=== PATIENT | female | born 1940 | race Caucasian/White ===

== ENCOUNTER 2017-04-21 14:22 | Emergency (ER) | payer MEDICARE, BC ==
[2017-04-21 14:36] VITALS: BP 126/54
[2017-04-21] MEDS ORDERED: Sodium Chloride 0.9% 10 ML Syringe FLUSH PRN (15:36)
--- NOTE | 2017-04-21 15:44 | EDM.PDOC ---
<Debi Maya - Last Filed: 04/21/17 18:45> ED HPI GENERAL MEDICAL PROBLEM - General Chief Complaint: Gastrointestinal Problem Stated Complaint: NAUSEA,CHILLS,DIARRHEA Time Seen by Provider: 04/21/17 15:30 Source of Information: Reports: Patient, Other (daughter ) History Limitations: Reports: No Limitations - History of Present Illness INITIAL COMMENTS - FREE TEXT/NARRATIVE: Bandar is a 76 year-old female who presents today with complaints of diarrhea, nausea, and chills. Her symptoms started this morning at 0300 with reports of loose stools. Since her symptoms started, she has had a total of 5 loose stools. Around 0900, she vomited after drinking gingerale and then became nauseated with chills. She denies any fever, chest pain. The patient reports she has shortness of breath at baseline and dizziness with position changes. Her shortness of breath has not changed since her symptoms began. Her daughter is present in the room and reports that her mother has become progressively more "weak and lethargic" over the past week. She was seen [address] Ramirez and was hypertensive. The patient was started on Amlodipine. She has been checking her blood pressures daily and has noticed a decrease in her pressures since started the medication. She is a type 2 diabetic and sees a air control/anti air warfare officer on her right foot. She was prescribed Augmentin for her foot ulcers 3.5 weeks ago and has 2 pills left to finish her course. The patient's daughter reports her blood sugars have been higher over the past week (176-254). Normally, her blood sugars are 110-115. - Related Data Allergies Allergy/AdvReac Type Severity Reaction Status Date / Time fentanyl Allergy Respiratory Verified 04/21/17 15:12 Depression hydrocodone Allergy Respiratory Verified 04/21/17 15:12 Distress oxycodone [Oxycodone] Allergy Respiratory Verified 04/21/17 15:12 Distress tramadol Allergy Respiratory Verified 04/21/17 15:12 Distress Home Meds: Home Meds Blood-Glucose Meter [Blood Glucose Monitoring] 1 strip ACBED 05/07/14 [History] Insulin Glarg,Human.Rec.Analog [Lantus Solostar] 30 unit SQ BID 05/07/14 [ History] Magnesium 250 mg PO DAILY 05/07/14 [History] Metoprolol Tartrate [Lopressor] 25 mg PO Q12HR 05/07/14 [History] amLODIPine [Norvasc] 10 mg PO DAILY 05/07/14 [History] Sucralfate [Carafate] 1 gm PO Q6HR #120 tab 05/19/14 [Rx] Folic Acid 1 mg PO DAILY 03/08/16 [History] Furosemide [Lasix] 40 mg PO DAILY 03/08/16 [History] Sennosides/Docusate Sodium [Senna S Tablet] 1 tab PO Q2D 03/08/16 [History] predniSONE [Prednisone] 5 mg PO DAILY 03/08/16 [History] Amoxicillin/Clavulanate K [Augmentin 875 MG/125 MG] 1 tab PO Q12HR 04/21/17 [ History] Dextrose [Glucose] 4 gm PO DAILY PRN 04/21/17 [History] Fish Oil/Lindsay-3 Fatty Acids [Fish Oil 1,000 MG] 1 cap PO DAILY 04/21/17 [ History] Insulin Aspart [Novolog] 16 unit SQ TID 04/21/17 [History] Lisinopril 20 mg PO DAILY 04/21/17 [History] Melatonin 3 mg PO BEDTIME PRN 04/21/17 [History] Multivits,Ca,Minerals/Iron/FA [Thera-M] 1 each PO DAILY 04/21/17 [History] Past Medical History HEENT History: Reports: Cataract Cardiovascular History: Reports: High Cholesterol, Hypertension Respiratory History: Reports: Pneumonia, Recurrent, Sleep Apnea Gastrointestinal History: Reports: Chronic Constipation, PUD Other Gastrointestinal History: Stomach ulcer Genitourinary History: Reports: Urinary Incontinence 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: Musculoskeletal History: Reports: Osteoarthritis Other Musculoskeletal History: Rheumatoid arthritis Psychiatric History: Reports: Anxiety, Depression Endocrine/Metabolic History: Reports: Diabetes, Type II, Obesity/BMI 30+ - Past Surgical History Female Surgical History: Reports: Breast Biopsy Musculoskeletal Surgical History: Reports: Knee Replacement Social & Family History - Tobacco Use Smoking Status *Q: Never Smoker Second Hand Smoke Exposure: No - Caffeine Use Caffeine Use: Reports: Coffee, Tea - Alcohol Use Days Per Week of Alcohol Use: 0 Number of Drinks Per Day: 0 Total Drinks Per Week: 0 - Recreational Drug Use Recreational Drug Use: No Drug Use in Last 12 Months: No - Living Situation & Occupation Living situation: Reports: , with Family Occupation: Retired ED ROS GENERAL - Review of Systems Review Of Systems: See Below Constitutional: Reports: Chills, Weakness, Fatigue. Denies: Fever, Night Sweats , Diaphoresis HEENT: Reports: No Symptoms Respiratory: Reports: Shortness of Breath (shortness of breath at baseline per patient ) Cardiovascular: Denies: Chest Pain, Palpitations GI/Abdominal: Reports: Diarrhea (reports 5 loose stools within last 24 hours ), Vomiting (emesis this morning, after drinking gingerale (see HPI) ). Denies: Abdominal Pain, Black Stool, Bloody Stool : Denies: Dysuria, Frequency, Urgency ED EXAM, GI/ABD - Physical Exam Exam: See Below Exam Limited By: No Limitations General Appearance: Alert, No Apparent Distress Eyes: Bilateral: EOMI, Abnormal EOM Ears: Normal TMs Head: Normocephalic Neck: Supple Respiratory/Chest: Lungs Clear, Normal Breath Sounds Cardiovascular: Regular Rate, Rhythm GI/Abdominal: Normal Bowel Sounds, Soft, Non-Tender Extremities: Pedal Edema (+1 bilateral edema to lower legs and ankles ) Neurological: Alert, Oriented, CN II-XII Intact Skin Exam: Wound/Incision (ulcer to posterior toe, patient reports secondary to type 2 DM, no surrounding redness, warmth, or drainage ) Course - Vital Signs Last Recorded V/S: Last Vital Signs Temp 36.8 C 04/21/17 14:34 Pulse 102 H 04/21/17 14:34 Resp 19 04/21/17 14:34 BP 126/54 L 04/21/17 14:34 Pulse Ox - Orders/Labs/Meds Orders: Active Orders 24 hr Category Date Time Status Cardiac Monitoring [RC] . DIRECTED Care 04/21/17 15:41 Active EKG 12 Lead [EKG Documentation Completion] [RC] STAT Care 04/21/17 16:05 Active Peripheral IV Care [RC] . DIRECTED Care 04/21/17 15:36 Active Abdomen Pelvis wo Cont [CT] Stat Exams 04/21/17 17:30 Taken Chest 2V [CR] Stat Exams 04/21/17 15:38 Taken CULTURE BLOOD [BC] Stat Lab 04/21/17 17:30 Received CULTURE BLOOD [BC] Stat Lab 04/21/17 17:45 Received Sodium Chloride 0.9% [Normal Saline] 1,000 ml Med 04/21/17 18:13 Active IV ONETIME Sodium Chloride 0.9% [Saline Flush] Med 04/21/17 15:36 Active 10 ml FLUSH ASDIRECTED PRN Blood Culture x2 Reflex Set [OM.PC] Stat Oth 04/21/17 17:10 Ordered Peripheral IV Insertion Adult [OM.PC] Routine Oth 04/21/17 15:36 Ordered Medication Orders Sodium Chloride (Normal Saline) 1,000 mls @ 100 mls/hr IV ONETIME ONE Stop: 04/22/17 04:12 Last Admin: 04/21/17 18:41 Dose: 100 mls/hr Sodium Chloride (Saline Flush) 10 ml FLUSH ASDIRECTED PRN PRN Reason: Keep Vein Open Last Admin: 04/21/17 16:18 Dose: 10 ml Labs: Laboratory Tests 04/21/17 04/21/17 04/21/17 Range/Units 15:18 16:03 16:05 WBC (3.98-10.04) K/mm3 RBC (3.98-5.22) M/mm3 Hgb (11.2-15.7) gm/L Hct (34.1-44.9) % MCV (79.4-94.8) fl MCH (25.6-32.2) pg MCHC (32.2-35.5) g/dl RDW Std Deviation (36.4-46.3) fL Plt Count (182-369) K/mm3 MPV (9.4-12.3) fl Neutrophils % (Manual) (40-60) % Band Neutrophils % (0-10) % Lymphocytes % (Manual) (20-40) % Atypical Lymphs % % Monocytes % (Manual) (2-10) % Eosinophils % (Manual) (0.7-5.8) % Basophils % (Manual) (0.1-1.2) Platelet Estimate RBC Morph Comment Sodium 137 (136-145) mEq/L Potassium 3.8 (3.5-5.1) mEq/L Chloride 102 (98-107) mEq/L Carbon Dioxide 25 (21-32) mEq/L Anion Gap 13.8 (5-15) BUN 40 H (7-18) mg/dL Creatinine 1.8 H (0.55-1.02) mg/dL Est Cr Clr Drug Dosing 19.40 mL/min Estimated GFR (MDRD) 27 (>60) mL/min BUN/Creatinine Ratio 22.2 H (14-18) Glucose 106 (83-115) mg/dL POC Glucose 64 L 128 H (83-110) mg/dL Lactic Acid (0.4-2.0) mmol/L Calcium 9.0 (8.5-10.1) mg/dL Total Bilirubin 2.6 H (0.2-1.0) mg/dL Direct Bilirubin (0.0-0.2) mg/dl GGT (5-55) U/L AST 120 H (15-37) U/L ALT 178 H (14-59) U/L Alkaline Phosphatase 244 H (46-116) U/L CK-MB (CK-2) (0-3.6) ng/ml Troponin I (0.00-0.056) ng/mL C-Reactive Protein (<1.0) mg/dL B-Natriuretic Peptide (0-100) pg/mL Total Protein 6.9 (6.4-8.2) g/dl Albumin 2.6 L (3.4-5.0) g/dl Globulin 4.3 gm/dL Albumin/Globulin Ratio 0.6 L (1-2) Lipase (73-393) U/L Urine Color (Yellow) Urine Appearance (Clear) Urine pH (5.0-8.0) Ur Specific [place] (1.005-1.030) Urine Protein (Negative) Urine Glucose (UA) (Negative) Urine Ketones (Negative) Urine Occult Blood (Negative) Urine Nitrite (Negative) Urine Bilirubin (Negative) Urine Urobilinogen (0.2-1.0) Ur Leukocyte Esterase (Negative) Urine RBC (0-5) /hpf Urine WBC (0-5) /hpf Ur Epithelial Cells (0-5) /hpf Calcium Oxalate Crystal (NONE) Amorphous Sediment (NOT SEEN) /hpf Urine Bacteria (FEW) /hpf Coarse Granular Casts (0-5) /hpf Urine Mucus (FEW) /hpf 04/21/17 04/21/17 04/21/17 Range/Units 16:05 16:05 16:05 WBC 14.33 H (3.98-10.04) K/mm3 RBC 3.72 L (3.98-5.22) M/mm3 Hgb 11.1 L (11.2-15.7) gm/L Hct 34.5 (34.1-44.9) % MCV 92.7 (79.4-94.8) fl MCH 29.8 (25.6-32.2) pg MCHC 32.2 (32.2-35.5) g/dl RDW Std Deviation 48.0 H (36.4-46.3) fL Plt Count 203 (182-369) K/mm3 MPV 11.4 (9.4-12.3) fl Neutrophils % (Manual) 76 H (40-60) % Band Neutrophils % 3 (0-10) % Lymphocytes % (Manual) 9 L (20-40) % Atypical Lymphs % 0 % Monocytes % (Manual) 11 H (2-10) % Eosinophils % (Manual) 0 L (0.7-5.8) % Basophils % (Manual) 1 (0.1-1.2) Platelet Estimate Adequate RBC Morph Comment Normal Sodium (136-145) mEq/L Potassium (3.5-5.1) mEq/L Chloride (98-107) mEq/L Carbon Dioxide (21-32) mEq/L Anion Gap (5-15) BUN (7-18) mg/dL Creatinine (0.55-1.02) mg/dL Est Cr Clr Drug Dosing mL/min Estimated GFR (MDRD) (>60) mL/min BUN/Creatinine Ratio (14-18) Glucose (83-115) mg/dL POC Glucose (83-110) mg/dL Lactic Acid (0.4-2.0) mmol/L Calcium (8.5-10.1) mg/dL Total Bilirubin (0.2-1.0) mg/dL Direct Bilirubin (0.0-0.2) mg/dl GGT (5-55) U/L AST (15-37) U/L ALT (14-59) U/L Alkaline Phosphatase (46-116) U/L CK-MB (CK-2) < 0.5 (0-3.6) ng/ml Troponin I < 0.017 (0.00-0.056) ng/mL C-Reactive Protein (<1.0) mg/dL B-Natriuretic Peptide 327 H (0-100) pg/mL Total Protein (6.4-8.2) g/dl Albumin (3.4-5.0) g/dl Globulin gm/dL Albumin/Globulin Ratio (1-2) Lipase (73-393) U/L Urine Color (Yellow) Urine Appearance (Clear) Urine pH (5.0-8.0) Ur Specific [place] (1.005-1.030) Urine Protein (Negative) Urine Glucose (UA) (Negative) Urine Ketones (Negative) Urine Occult Blood (Negative) Urine Nitrite (Negative) Urine Bilirubin (Negative) Urine Urobilinogen (0.2-1.0) Ur Leukocyte Esterase (Negative) Urine RBC (0-5) /hpf Urine WBC (0-5) /hpf Ur Epithelial Cells (0-5) /hpf Calcium Oxalate Crystal (NONE) Amorphous Sediment (NOT SEEN) /hpf Urine Bacteria (FEW) /hpf Coarse Granular Casts (0-5) /hpf Urine Mucus (FEW) /hpf 04/21/17 04/21/17 04/21/17 Range/Units 16:05 16:25 17:30 WBC (3.98-10.04) K/mm3 RBC (3.98-5.22) M/mm3 Hgb (11.2-15.7) gm/L Hct (34.1-44.9) % MCV (79.4-94.8) fl MCH (25.6-32.2) pg MCHC (32.2-35.5) g/dl RDW Std Deviation (36.4-46.3) fL Plt Count (182-369) K/mm3 MPV (9.4-12.3) fl Neutrophils % (Manual) (40-60) % Band Neutrophils % (0-10) % Lymphocytes % (Manual) (20-40) % Atypical Lymphs % % Monocytes % (Manual) (2-10) % Eosinophils % (Manual) (0.7-5.8) % Basophils % (Manual) (0.1-1.2) Platelet Estimate RBC Morph Comment Sodium (136-145) mEq/L Potassium (3.5-5.1) mEq/L Chloride (98-107) mEq/L Carbon Dioxide (21-32) mEq/L Anion Gap (5-15) BUN (7-18) mg/dL Creatinine (0.55-1.02) mg/dL Est Cr Clr Drug Dosing mL/min Estimated GFR (MDRD) (>60) mL/min BUN/Creatinine Ratio (14-18) Glucose (83-115) mg/dL POC Glucose (83-110) mg/dL Lactic Acid 0.8 (0.4-2.0) mmol/L Calcium (8.5-10.1) mg/dL Total Bilirubin (0.2-1.0) mg/dL Direct Bilirubin 2.20 H (0.0-0.2) mg/dl GGT 667 H (5-55) U/L AST (15-37) U/L ALT (14-59) U/L Alkaline Phosphatase (46-116) U/L CK-MB (CK-2) (0-3.6) ng/ml Troponin I (0.00-0.056) ng/mL C-Reactive Protein (<1.0) mg/dL B-Natriuretic Peptide (0-100) pg/mL Total Protein (6.4-8.2) g/dl Albumin (3.4-5.0) g/dl Globulin gm/dL Albumin/Globulin Ratio (1-2) Lipase 1038 H (73-393) U/L Urine Color Kathleen H (Yellow) Urine Appearance Cloudy H (Clear) Urine pH 5.5 (5.0-8.0) Ur Specific [place] 1.025 (1.005-1.030) Urine Protein 2+ H (Negative) Urine Glucose (UA) Negative (Negative) Urine Ketones Trace H (Negative) Urine Occult Blood Trace-lysed H (Negative) Urine Nitrite Negative (Negative) Urine Bilirubin 3+ H (Negative) Urine Urobilinogen 4.0 H (0.2-1.0) Ur Leukocyte Esterase Negative (Negative) Urine RBC 0-5 (0-5) /hpf Urine WBC 0-5 (0-5) /hpf Ur Epithelial Cells 5-10 H (0-5) /hpf Calcium Oxalate Crystal Few H (NONE) Amorphous Sediment Few H (NOT SEEN) /hpf Urine Bacteria Few (FEW) /hpf Coarse Granular Casts 10-20 H (0-5) /hpf Urine Mucus Not seen (FEW) /hpf 04/21/ Range/Units 17:50 WBC (3.98-10.04) K/mm3 RBC (3.98-5.22) M/mm3 Hgb (11.2-15.7) gm/L Hct (34.1-44.9) % MCV (79.4-94.8) fl MCH (25.6-32.2) pg MCHC (32.2-35.5) g/dl RDW Std Deviation (36.4-46.3) fL Plt Count (182-369) K/mm3 MPV (9.4-12.3) fl Neutrophils % (Manual) (40-60) % Band Neutrophils % (0-10) % Lymphocytes % (Manual) (20-40) % Atypical Lymphs % % Monocytes % (Manual) (2-10) % Eosinophils % (Manual) (0.7-5.8) % Basophils % (Manual) (0.1-1.2) Platelet Estimate RBC Morph Comment Sodium (136-145) mEq/L Potassium (3.5-5.1) mEq/L Chloride (98-107) mEq/L Carbon Dioxide (21-32) mEq/L Anion Gap (5-15) BUN (7-18) mg/dL Creatinine (0.55-1.02) mg/dL Est Cr Clr Drug Dosing mL/min Estimated GFR (MDRD) (>60) mL/min BUN/Creatinine Ratio (14-18) Glucose (83-115) mg/dL POC Glucose (83-110) mg/dL Lactic Acid (0.4-2.0) mmol/L Calcium (8.5-10.1) mg/dL Total Bilirubin (0.2-1.0) mg/dL Direct Bilirubin (0.0-0.2) mg/dl GGT (5-55) U/L AST (15-37) U/L ALT (14-59) U/L Alkaline Phosphatase (46-116) U/L CK-MB (CK-2) (0-3.6) ng/ml Troponin I (0.00-0.056) ng/mL C-Reactive Protein 6.6 H* (<1.0) mg/dL B-Natriuretic Peptide (0-100) pg/mL Total Protein (6.4-8.2) g/dl Albumin (3.4-5.0) g/dl Globulin gm/dL Albumin/Globulin Ratio (1-2) Lipase (73-393) U/L Urine Color (Yellow) Urine Appearance (Clear) Urine pH (5.0-8.0) Ur Specific [place] (1.005-1.030) Urine Protein (Negative) Urine Glucose (UA) (Negative) Urine Ketones (Negative) Urine Occult Blood (Negative) Urine Nitrite (Negative) Urine Bilirubin (Negative) Urine Urobilinogen (0.2-1.0) Ur Leukocyte Esterase (Negative) Urine RBC (0-5) /hpf Urine WBC (0-5) /hpf Ur Epithelial Cells (0-5) /hpf Calcium Oxalate Crystal (NONE) Amorphous Sediment (NOT SEEN) /hpf Urine Bacteria (FEW) /hpf Coarse Granular Casts (0-5) /hpf Urine Mucus (FEW) /hpf Meds: Medications Generic Name Dose Route Start Last Admin Trade Name Freq PRN Reason Stop Dose Admin Sodium Chloride 1,000 mls @ 100 mls/hr 04/21/17 18:13 04/21/17 18:41 Normal Saline IV 04/22/17 04:12 100 mls/hr ONETIME ONE Administration Sodium Chloride 10 ml 04/21/17 15:36 04/21/17 16:18 Saline Flush FLUSH 10 ml ASDIRECTED PRN Administration Keep Vein Open Discontinued Medications Generic Name Dose Route Start Last Admin Trade Name Freq PRN Reason Stop Dose Admin Ceftriaxone Sodium 1 gm/ 100 mls @ 200 mls/hr 04/21/17 18:23 04/21/17 18:43 Sodium Chloride IV 04/21/17 18:52 200 mls/hr ONETIME ONE Administration Metronidazole 500 mg/ Premix 100 mls @ 100 mls/hr 04/21/17 19:31 04/21/17 19: 45 IV 04/21/17 20:30 100 mls/hr ONETIME ONE Administration Departure - Departure Disposition: DC/Tfer to Acute Hospital 02 Clinical Impression: Acute cholangitis due to calculus of bile duct with obstruction - Discharge Information Referrals: Abraham Ramirez MD [Primary Care Provider] - Forms: ED Department Discharge Additional Instructions: patient to go to [facility] in [place]. Dr. Potts accepting. Will go by ground ambulance. Patient to be a direct admission. - My Orders Last 24 Hours: My Active Orders 04/21/17 16:05 EKG 12 Lead [EKG Documentation Completion] [RC] STAT 04/21/17 17:10 Blood Culture x2 Reflex Set [OM.PC] Stat 04/21/17 17:30 Abdomen Pelvis wo Cont [CT] Stat CULTURE BLOOD [BC] Stat 04/21/17 17:45 CULTURE BLOOD [BC] Stat 04/21/17 18:13 Sodium Chloride 0.9% [Normal Saline] 1,000 ml IV ONETIME - Assessment/Plan Last 24 Hours: My Active Orders 04/21/17 16:05 EKG 12 Lead [EKG Documentation Completion] [RC] STAT 04/21/17 17:10 Blood Culture x2 Reflex Set [OM.PC] Stat 04/21/17 17:30 Abdomen Pelvis wo Cont [CT] Stat CULTURE BLOOD [BC] Stat 04/21/17 17:45 CULTURE BLOOD [BC] Stat 04/21/17 18:13 Sodium Chloride 0.9% [Normal Saline] 1,000 ml IV ONETIME <Kadi Mayers - Last Filed: 04/21/17 20:51> ED HPI GENERAL MEDICAL PROBLEM - History of Present Illness INITIAL COMMENTS - FREE TEXT/NARRATIVE: Debi, nurse practitioner student, has seen and evaluated the patient. I agree with her history of present illness as documented. Patient is currently complaining of nausea, vomiting, diarrhea and chills. She is a type II diabetic. Reports that her blood sugars have been more elevated than normal. Reports that her blood sugars are normally in the 110s to 120s. She denies any chest pain or abdominal pain. Patient has been seeing Dr. Godfrey, air control/anti air warfare officer for her foot ulcers. She has been on Augmentin for the last month for the ulcers. She is no longer on this. ED ROS GENERAL - Review of Systems Constitutional: Reports: Diaphoresis GI/Abdominal: Reports: Nausea Skin: Reports: Wound (diabetic foot ulcers to the lateral great toes) ED EXAM, GI/ABD - Physical Exam General Appearance: WD/WN, Obese Throat/Mouth: Normal Inspection, Normal Voice, No Airway Compromise Neck: Supple Respiratory/Chest: No Respiratory Distress, Lungs Clear, Normal Breath Sounds Cardiovascular: Normal Peripheral Pulses (2+ radial pulses bilaterally, 1+ dorslis pedis and posterior tibialis pulses bilaterally), Regular Rate, Rhythm, Systolic Murmur (grade 1 systolic heart murmur) GI/Abdominal: Normal Bowel Sounds, Soft, Tenderness (mild tenderness in the epigastric region). No: Birmingham's Sign Extremities: Pedal Edema Neurological: Alert, Oriented, CN II-XII Intact, Normal Cognition Psychiatric: Normal Affect, Normal Mood Skin Exam: Warm, Dry, Wound/Incision EKG INTERPRETATION EKG Date: 04/21/17 Time: 16:15 Rhythm: NSR Rate (Beats/Min): 83 [place]: Normal P-Wave: Present QRS: Normal ST-T: Normal QT: Normal EKG Interpretation Comments: NSR at 83 bpm. PAC. Reviewed by myself and Dr. Parker. Course - Radiology Interpretation Free Text/Narrative:: Chest 2 view shows no acute intrathoracic process. CT of the abdomen and pelvis without contrast impression per [facility]: Gallstones in the gallbladder, with the 11 mm obstructing calculus in the distal common bile duct with intrahepatic and extrahepatic biliary dilation. Left renal lesions, recommend ultrasound. Minimal diverticulosis without diverticulitis. Suspicious for cirrhosis. Correlate clinically. CT Results Date: 04/21/17 - Re-Assessments/Exams Free Text/Narrative Re-Assessment/Exam: 04/21/17 19:38 Labs include the following: wbc is 14.33 with 3% bands. Hemoglobin is 11.1. Platelets are 207. Sodium is 137, potassium is 3.8 chloride is 102. Anion gap is 13.8. Creatinine is 1.8. total bilirubin is elevated at 2.6. GGT is 667, AST is 120, ALT is 178 and alkaline phosphatase is 244. Direct bilirubin is 2.20. Lipase is elevated at 1038. ACADEMIC AFFAIRS MANAGER is elevated at 327. Troponin is within normal limits at less than 0.017. CK-MBs within normal limits at less than 0.5. UA has 2+ protein, trace ketones, trace lysed red blood cells, 3+ bilirubin, negative nitrites and negative leukocytes. Next CT of the abdomen and pelvis without IV contrast, due to her elevated creatinine , was ordered to further evaluate elevated liver enzymes and rule out acute cholangitis and CBD obstruction Labs obtained from [facility]. Most recent labs were performed on 02-14-17. At that time her liver enzymes were within normal limits. Creatinine was 1.2. Total bilirubin was 0.3. Hemoglobin was 11.0. White blood cell count 7.4. Platelets 212. I reviewed the CT, EKG, chest x-ray and lab results the patient. She likely requires an ERCP for a 11 mm stone in the distal common bile duct. She also likely has acute cholangitis. She has been given 1 g IV Rocephin. 500mg IV flagyl ordered. She requires a higher level of care. Spoken with the patient about transfer. She like to go to [facility] in [place]. I am awaiting their return phone call this point. vitals at this time at; pulse 78, 99% on RA, Resp 14, temp 98, b/p 153/55 04/21/17 20:[address] Harmon, hospitalist at [facility] in [place]. agrees to accept the patient. We will transfer the patient by ground ambulance at this time. Departure - Departure Time of Disposition: 20:50 Condition: Serious
[2017-04-21] MEDS ORDERED: Sodium Chloride 0.9% 1,000 ML IV ONE (18:13)
[2017-04-21] MEDS ORDERED: cefTRIAXone 1 GM in Sodium Chloride 0.9% 100 ML IV ONE (18:23)
[2017-04-21] MEDS ORDERED: metroNIDAZOLE/Normal Saline 500 MG in Premix Bag 1 BAG IV ONE (19:31)
--- NOTE | 2017-04-23 11:17 | CR ---
Chest: 2 views of the chest were obtained. Comparison: Previous chest CT of 05/06/14 is available and chest x-ray of 08/07/09 is available. Heart size and mediastinum appear within normal limits for technique. Lungs are clear with no acute infiltrates. Slight scoliosis is noted within the spine with mild degenerative change also seen within the spine. Impression: 1. Nothing acute is appreciated on 2 view chest x-ray. Diagnostic code #2
--- NOTE | 2017-04-23 11:38 | CT ---
Addendum: Distal CBD stone shows a measurement of 1.1 mm on prior report. This is incorrect and is 1.1 cm. --- Addendum1 above dictated on [04/28/2017 17:53] by [Mallika Moss Hilton J.] --- --- Addendum1 above signed on [04/28/2017 17:54] by [Mallika Moss Hilton J.] --- --- Original report below dictated on [04/22/2017 10:23] by [Mallika Moss, Melo Armenta] --- --- Original report below signed on [04/23/2017 11:35] by [Mallika Moss Hilton J.] --- CT abdomen and pelvis Technique: Multiple axial sections were obtained from above the dome of the diaphragm inferiorly through the pubic symphysis. Intravenous and oral contrast not utilized. This limits evaluation of the bowel and solid organs. Comparison: No previous abdominal imaging. Findings: Slight areas of scarring/atelectasis incidentally noted within both lung bases. Equivocal findings of cirrhosis within the liver. No definite focal abnormality is appreciated on this noncontrast exam. There is mild intrahepatic biliary duct dilatation being seen. Gallstones are seen within the gallbladder. Distal common bile duct measures 1.1 cm in size. There is an area of increased density within the distal CBD felt compatible with obstructing stone measuring about 1.1 mm. Adrenal glands show no nodule. Pancreas shows no focal abnormality. Kidneys show no hydronephrosis. Several small cortical cysts are seen within the left kidney believed to be incidental. Small area of increased density seen within the lower left kidney measuring 1.0 cm in size most likely representing small hemorrhagic cyst. Aorta and iliac vessels shows atherosclerotic change without aneurysm. No retroperitoneal adenopathy or mesenteric abnormalities are seen. Calcifications are noted within the uterus. No pelvic mass or adenopathy is seen. Bone window settings were reviewed which show spondylolisthesis at L5-S1 due to bilateral spondylolytic defects. Spondylolisthesis measures about 8.6 mm. Severe disc space narrowing is also noted at L5-S1. Impression: 1. Distal obstructing CBD stone measuring 1.1 cm. This causes extrahepatic and intrahepatic biliary duct dilatation. Multiple gallstones also noted within the gallbladder. 2. Questionable liver cirrhosis. 3. Other incidental findings. Diagnostic code #5 I agree with preliminary report issued by [facility] ([facility] report finalized on 04/21/17, 8:24 PM Central Time) --- Addendum1 signed ---
== END 2017-04-21 21:14 ==
LOC: JD.ED 14:22
DX: K80.33 Calculus of bile duct with acute cholangitis with obstruction (principal); R11.0 Nausea; R19.7 Diarrhea, unspecified; I10 Essential (primary) hypertension; E78.00 Pure hypercholesterolemia, unspecified; G47.30 Sleep apnea, unspecified; M19.90 Unspecified osteoarthritis, unspecified site; M06.9 Rheumatoid arthritis, unspecified; E11.9 Type 2 diabetes mellitus without complications; E66.9 Obesity, unspecified; R06.02 Shortness of breath; Z96.659 Presence of unspecified artificial knee joint; Z79.4 Long term (current) use of insulin; Z79.899 Other long term (current) drug therapy; Z88.5 Allergy status to narcotic agent; Z88.6 Allergy status to analgesic agent; Z88.8 Allergy status to other drugs, medicaments and biological substances
CPT/HCPCS: 36415; 71020; 74176; 80053; 81001; 82248; 82553; 82962; 82977; 83605; 83690; 83880; 84484; 85025; 86140; 87040; 87077; 87186; 93005; 96361; 96365; 96367; 99285; J0696; J7030; J7040; J7050; P9612; 99284

== ENCOUNTER 2017-12-05 17:25 | Emergency (ER) | payer MEDICARE, BC ==
[2017-12-05 17:47] VITALS: BP 136/69
[2017-12-05] MEDS ORDERED: Sodium Chloride 0.9% 1,000 ML IV ONE (17:53)
[2017-12-05] MEDS ORDERED: Sodium Chloride 0.9% 1,000 ML ONE (17:53)
[2017-12-05] MEDS ORDERED: Acetaminophen 325 MG Tab PO ONE (17:55)
[2017-12-05] MEDS ORDERED: Sodium Chloride 0.9% 10 ML Syringe FLUSH PRN ×2 (17:55→20:36)
--- NOTE | 2017-12-05 18:01 | EDM.PDOC ---
ED HPI GENERAL MEDICAL PROBLEM - General Chief Complaint: Fever Stated Complaint: [facility] Time Seen by Provider: 12/05/17 17:50 Source of Information: Reports: Patient History Limitations: Reports: No Limitations - History of Present Illness INITIAL COMMENTS - FREE TEXT/NARRATIVE: Patient is a 77-year-old female who presents to the ED with sudden onset of fever, shortness of breath, and nausea/vomiting. Family states patient at approximately 2:30 this afternoon experienced a low blood sugar and again at 3: 00. At about that time patient started feeling feverish with rigors. Patient became nauseated and had 3 episodes of emesis with no blood present. She did have 1x loose stool as well but was not described as diarrhea. Per family patient has history of aspiration pneumonia. She is on O2 chronically 2 L/m. She lives a sedentary lifestyle. She does have swelling to her lower extremities of no increase as a recent or pain present. She denies recent exposure to influenza. Denies any ingestion of bad questional food. Has no complaints with urination. She denies having any chest pain or abdominal pain with admission. Patient has a diabetic ulcer to left great toe. She was evaluated today by Dr. Godfrey [place] [employer] Helper with no concerning findings. Patient has a history of diastolic heart failure, hyperglycemia, hypertension, aspiration pneumonia, anxiety, depression, rheumatoid arthritis, diabetes type 2 , diabetic ulcer. Current medications include: Metoprolol, Norvasc, prednisone, lisinopril, magnesium, Lantus,and NovoLog. Treatments HEALTH INFORMATION SYSTEMS TECHNICIAN: Reports: Oxygen, Other (see below) Other Treatments HEALTH INFORMATION SYSTEMS TECHNICIAN: zofran odt - Related Data Allergies Allergy/AdvReac Type Severity Reaction Status Date / Time fentanyl Allergy Respiratory Verified 12/05/17 17:47 Depression hydrocodone Allergy Respiratory Verified 12/05/17 17:47 Distress oxycodone [Oxycodone] Allergy Respiratory Verified 12/05/17 17:47 Distress tramadol Allergy Respiratory Verified 12/05/17 17:47 Distress Home Meds: Home Meds Blood-Glucose Meter [Blood Glucose Monitoring] 1 strip ACBED 05/07/14 [History] Insulin Glarg,Human.Rec.Analog [Lantus Solostar] 30 unit SQ BID 05/07/14 [ History] Magnesium 250 mg PO DAILY 05/07/14 [History] Metoprolol Tartrate [Lopressor] 25 mg PO Q12HR 05/07/14 [History] amLODIPine [Norvasc] 10 mg PO DAILY 05/07/14 [History] Sucralfate [Carafate] 1 gm PO Q6HR #120 tab 05/19/14 [Rx] Folic Acid 1 mg PO DAILY 03/08/16 [History] Furosemide [Lasix] 40 mg PO DAILY 03/08/16 [History] Sennosides/Docusate Sodium [Senna S Tablet] 1 tab PO Q2D 03/08/16 [History] predniSONE [Prednisone] 5 mg PO DAILY 03/08/16 [History] Amoxicillin/Clavulanate K [Augmentin 875 MG/125 MG] 1 tab PO Q12HR 04/21/17 [ History] Dextrose [Glucose] 4 gm PO DAILY PRN 04/21/17 [History] Fish Oil/[place]-3 Fatty Acids [Fish Oil 1,000 MG] 1 cap PO DAILY 04/21/17 [ History] Insulin Aspart [Novolog] 16 unit SQ TID 04/21/17 [History] Lisinopril 20 mg PO DAILY 04/21/17 [History] Melatonin 3 mg PO BEDTIME PRN 04/21/17 [History] Multivits,Ca,Minerals/Iron/FA [Thera-M] 1 each PO DAILY 04/21/17 [History] Past Medical History HEENT History: Reports: Cataract, Impaired Vision Cardiovascular History: Reports: High Cholesterol, Hypertension, Other (See Below) (diastolic heart failure) Respiratory History: Reports: Pneumonia, Recurrent, Sleep Apnea, SOB, Other ( See Below) Other Respiratory History: oxygen dependent Gastrointestinal History: Reports: Chronic Constipation, PUD Other Gastrointestinal History: Stomach ulcer Genitourinary History: Reports: Urinary Incontinence 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: 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: Musculoskeletal History: Reports: Osteoarthritis Other Musculoskeletal History: Rheumatoid arthritis Psychiatric History: Reports: Anxiety, Depression Endocrine/Metabolic History: Reports: Diabetes, Type II, Obesity/BMI 30+ Dermatologic History: Reports: Other (See Below) Other Dermatologic History: diabetic ulceration - Past Surgical History Female Surgical History: Reports: Breast Biopsy Musculoskeletal Surgical History: Reports: Knee Replacement Social & Family History - Family History Family Medical History: Noncontributory - Tobacco Use Smoking Status *Q: Never Smoker Second Hand Smoke Exposure: No - Caffeine Use Caffeine Use: Reports: Coffee - Alcohol Use Days Per Week of Alcohol Use: 0 Number of Drinks Per Day: 0 Total Drinks Per Week: 0 - Recreational Drug Use Recreational Drug Use: No Drug Use in Last 12 Months: No - Living Situation & Occupation Living situation: Reports: , with Family Occupation: Retired ED ROS GENERAL - Review of Systems Review Of Systems: ROS reveals no pertinent complaints other than HPI. ED EXAM, GI/ABD - Physical Exam Exam: See Below Exam Limited By: Respiratory Distress General Appearance: Alert, WD/WN, Moderate Distress Eyes: Bilateral: Normal Appearance Ears: Normal External Exam, Normal Canal, Hearing Grossly Normal, Normal TMs Nose: Normal Inspection Throat/Mouth: Normal Inspection, Normal Oropharynx, Normal Voice, No Airway Compromise Head: Atraumatic, Normocephalic Neck: Normal Inspection, Supple, Non-Tender, Full Range of Motion Respiratory/Chest: Lungs Clear, Normal Breath Sounds, No Accessory Muscle Use, Respiratory Distress Cardiovascular: Regular Rate, Rhythm, Tachycardia, Systolic Murmur GI/Abdominal Exam: Normal Bowel Sounds, Soft, Non-Tender Extremities: Non-Tender, Pedal Edema, Other (Diabetic ulcer to the left great toe. It is not infected.) Neurological: Alert, Oriented, CN II-XII Intact, Normal Cognition, No Motor/ Sensory Deficits Psychiatric: Normal Affect, Normal Mood Skin Exam: Dry, Intact, Normal Color, Increased Warmth Course - Vital Signs Last Recorded V/S: Last Vital Signs Temp 101.9 F H 12/05/17 20:13 Pulse 124 H 12/05/17 17:30 Resp 44 H 12/05/17 17:30 BP 136/69 12/05/17 17:30 Pulse Ox 94 L 12/05/17 17:30 - Orders/Labs/Meds Orders: Active Orders 24 hr Category Date Time Status EKG Documentation Completion [RC] STAT Care 12/05/17 18:03 Active EKG Documentation Completion [RC] STAT Care 12/05/17 22:34 Active Peripheral IV Care [RC] . DIRECTED Care 12/05/17 17:55 Active Abdomen 1V Flat [CR] Stat Exams 12/05/17 18:30 Taken Chest 1V Frontal [CR] Stat Exams 12/05/17 18:30 Taken PE Chest [Ang Chest] [CT] Stat Exams 12/05/17 20:09 Taken CULTURE BLOOD [BC] Stat Lab 12/05/17 18:25 Received CULTURE BLOOD [BC] Stat Lab 12/05/17 19:15 Received Sodium Chloride 0.9% [Normal Saline] 100 ml Med 12/05/17 20:45 Active IV ASDIRECTED Sodium Chloride 0.9% [Saline Flush] Med 12/05/17 17:55 Active 10 ml FLUSH ASDIRECTED PRN Sodium Chloride 0.9% [Saline Flush] Med 12/05/17 20:36 Active 10 ml FLUSH ONETIME PRN Blood Culture x2 Reflex Set [OM.PC] Stat Oth 12/05/17 17:52 Ordered Peripheral IV Insertion Adult [OM.PC] Stat Oth 12/05/17 17:55 Ordered Medication Orders Sodium Chloride (Normal Saline) 100 mls @ 75 mls/hr IV ASDIRECTED CJ Last Admin: 12/05/17 21:00 Dose: 75 mls/hr Sodium Chloride (Saline Flush) 10 ml FLUSH ASDIRECTED PRN PRN Reason: Keep Vein Open Last Admin: 12/05/17 18:10 Dose: 10 ml Sodium Chloride (Saline Flush) 10 ml FLUSH ONETIME PRN PRN Reason: IV FLUSH Last Admin: 12/05/17 21:00 Dose: 10 ml Labs: Laboratory Tests 12/05/17 12/05/17 12/05/17 Range/Units 17:05 18:25 18:25 WBC Cancelled Corrected WBC Cancelled RBC Cancelled Hgb Cancelled Hct Cancelled MCV Cancelled MCH Cancelled MCHC Cancelled RDW Std Deviation Cancelled Plt Count Cancelled MPV Cancelled Neut % (Auto) Cancelled Lymph % (Auto) Cancelled [place] % (Auto) Cancelled Eos % (Auto) Cancelled Baso % (Auto) Cancelled Neut # (Auto) Cancelled Lymph # (Auto) Cancelled [place] # (Auto) Cancelled Eos # (Auto) Cancelled Baso # (Auto) Cancelled Neutrophils % (Manual) (40-60) % Band Neutrophils % (0-10) % Lymphocytes % (Manual) (20-40) % Atypical Lymphs % % Monocytes % (Manual) (2-10) % Eosinophils % (Manual) (0.7-5.8) % Basophils % (Manual) (0.1-1.2) Manual Slide Review Cancelled Toxic Granulation Platelet Estimate Plt Morphology Comment Anisocytosis RBC Morph Comment PT 10.7 (8.0-13.0) SECONDS INR 1.00 APTT 25 (22-36) SECONDS D-Dimer, Quantitative (0.19-0.59) mg/L Puncture Site ABG pH (7.35-7.45) ABG pCO2 (35.0-45.0) mmHg ABG pO2 (80.0-100.0) mmHg ABG HCO3 (22.0-26.0) meq/L ABG O2 Saturation (96.0-97.0) % ABG Base Excess (-2-2.0) Oscar Test O2 Delivery Device Oxygen Flow Rate FiO2 (21.00-100.00) % Sodium (136-145) mEq/L Potassium (3.5-5.1) mEq/L Chloride (98-107) mEq/L Carbon Dioxide (21-32) mEq/L Anion Gap (5-15) BUN (7-18) mg/dL Creatinine (0.55-1.02) mg/dL Est Cr Clr Drug Dosing mL/min Estimated GFR (MDRD) (>60) mL/min BUN/Creatinine Ratio (14-18) Glucose (83-115) mg/dL POC Glucose (83-110) mg/dL Lactic Acid (0.4-2.0) mmol/L Calcium (8.5-10.1) mg/dL Total Bilirubin (0.2-1.0) mg/dL AST (15-37) U/L ALT (14-59) U/L Alkaline Phosphatase (46-116) U/L Troponin I (0.00-0.056) ng/mL C-Reactive Protein (<1.0) mg/dL NT-Pro-B Natriuret Pep (0-450) pg/mL Total Protein (6.4-8.2) g/dl Albumin (3.4-5.0) g/dl Globulin gm/dL Albumin/Globulin Ratio (1-2) Lipase (73-393) U/L Urine Color Yellow (Yellow) Urine Appearance Clear (Clear) Urine pH 5.5 (5.0-8.0) Ur Specific [place] 1.025 (1.005-1.030) Urine Protein 2+ H (Negative) Urine Glucose (UA) Negative (Negative) Urine Ketones Negative (Negative) Urine Occult Blood Trace-intact H (Negative) Urine Nitrite Negative (Negative) Urine Bilirubin Negative (Negative) Urine Urobilinogen 0.2 (0.2-1.0) Ur Leukocyte Esterase Negative (Negative) Urine RBC 0-5 (0-5) /hpf Urine WBC 0-5 (0-5) /hpf Ur Epithelial Cells 0-5 (0-5) /hpf Urine Bacteria Not seen (FEW) /hpf Urine Mucus Not seen (FEW) /hpf 12/05/17 12/05/17 12/05/17 Range/Units 18:25 18:25 18:25 WBC 13.61 H Corrected WBC RBC 3.32 L Hgb 9.9 L Hct 30.6 L MCV 92.2 MCH 29.8 MCHC 32.4 RDW Std Deviation 47.1 H Plt Count 203 MPV 10.0 Neut % (Auto) Lymph % (Auto) [place] % (Auto) Eos % (Auto) Baso % (Auto) Neut # (Auto) Lymph # (Auto) [place] # (Auto) Eos # (Auto) Baso # (Auto) Neutrophils % (Manual) 85 H (40-60) % Band Neutrophils % 4 (0-10) % Lymphocytes % (Manual) 8 L (20-40) % Atypical Lymphs % 0 % Monocytes % (Manual) 3 (2-10) % Eosinophils % (Manual) 0 L (0.7-5.8) % Basophils % (Manual) 0 L (0.1-1.2) Manual Slide Review Toxic Granulation 2+ moderate Platelet Estimate Adequate Plt Morphology Comment Normal Anisocytosis 1+ slight RBC Morph Comment Not Reportable PT (8.0-13.0) SECONDS INR APTT (22-36) SECONDS D-Dimer, Quantitative (0.19-0.59) mg/L Puncture Site ABG pH (7.35-7.45) ABG pCO2 (35.0-45.0) mmHg ABG pO2 (80.0-100.0) mmHg ABG HCO3 (22.0-26.0) meq/L ABG O2 Saturation (96.0-97.0) % ABG Base Excess (-2-2.0) Oscra Test O2 Delivery Device Oxygen Flow Rate FiO2 (21.00-100.00) % Sodium 140 (136-145) mEq/L Potassium 4.5 (3.5-5.1) mEq/L Chloride 104 (98-107) mEq/L Carbon Dioxide 25 (21-32) mEq/L Anion Gap 15.5 H (5-15) BUN 36 H (7-18) mg/dL Creatinine 1.3 H (0.55-1.02) mg/dL Est Cr Clr Drug Dosing 26.44 mL/min Estimated GFR (MDRD) 40 (>60) mL/min BUN/Creatinine Ratio 27.7 H (14-18) Glucose 112 (83-115) mg/dL POC Glucose (83-110) mg/dL Lactic Acid (0.4-2.0) mmol/L Calcium 9.1 (8.5-10.1) mg/dL Total Bilirubin 0.3 (0.2-1.0) mg/dL AST 26 (15-37) U/L ALT 27 (14-59) U/L Alkaline Phosphatase 95 (46-116) U/L Troponin I 0.043 (0.00-0.056) ng/mL C-Reactive Protein 1.1 H* (<1.0) mg/dL NT-Pro-B Natriuret Pep 493 H (0-450) pg/mL Total Protein 7.5 (6.4-8.2) g/dl Albumin 3.1 L (3.4-5.0) g/dl Globulin 4.4 gm/dL Albumin/Globulin Ratio 0.7 L (1-2) Lipase 166 (73-393) U/L Urine Color (Yellow) Urine Appearance (Clear) Urine pH (5.0-8.0) Ur Specific [place] (1.005-1.030) Urine Protein (Negative) Urine Glucose (UA) (Negative) Urine Ketones (Negative) Urine Occult Blood (Negative) Urine Nitrite (Negative) Urine Bilirubin (Negative) Urine Urobilinogen (0.2-1.0) Ur Leukocyte Esterase (Negative) Urine RBC (0-5) /hpf Urine WBC (0-5) /hpf Ur Epithelial Cells (0-5) /hpf Urine Bacteria (FEW) /hpf Urine Mucus (FEW) /hpf 12/05/17 12/05/17 12/05/17 Range/Units 18:25 19:15 19:25 WBC Corrected WBC RBC Hgb Hct MCV MCH MCHC RDW Std Deviation Plt Count MPV Neut % (Auto) Lymph % (Auto) [place] % (Auto) Eos % (Auto) Baso % (Auto) Neut # (Auto) Lymph # (Auto) [place] # (Auto) Eos # (Auto) Baso # (Auto) Neutrophils % (Manual) (40-60) % Band Neutrophils % (0-10) % Lymphocytes % (Manual) (20-40) % Atypical Lymphs % % Monocytes % (Manual) (2-10) % Eosinophils % (Manual) (0.7-5.8) % Basophils % (Manual) (0.1-1.2) Manual Slide Review Toxic Granulation Platelet Estimate Plt Morphology Comment Anisocytosis RBC Morph Comment PT (8.0-13.0) SECONDS INR APTT (22-36) SECONDS D-Dimer, Quantitative 2.35 H (0.19-0.59) mg/L Puncture Site Rt radial ABG pH 7.43 (7.35-7.45) ABG pCO2 37.7 (35.0-45.0) mmHg ABG pO2 68.0 L (80.0-100.0) mmHg ABG HCO3 24.3 (22.0-26.0) meq/L ABG O2 Saturation 95.4 L (96.0-97.0) % ABG Base Excess 0.5 (-2-2.0) Oscar Test Positive O2 Delivery Device Nasal cannula Oxygen Flow Rate 2.0 FiO2 0.28 L (21.00-100.00) % Sodium (136-145) mEq/L Potassium (3.5-5.1) mEq/L Chloride (98-107) mEq/L Carbon Dioxide (21-32) mEq/L Anion Gap (5-15) BUN (7-18) mg/dL Creatinine (0.55-1.02) mg/dL Est Cr Clr Drug Dosing mL/min Estimated GFR (MDRD) (>60) mL/min BUN/Creatinine Ratio (14-18) Glucose (83-115) mg/dL POC Glucose (83-110) mg/dL Lactic Acid 1.7 (0.4-2.0) mmol/L Calcium (8.5-10.1) mg/dL Total Bilirubin (0.2-1.0) mg/dL AST (15-37) U/L ALT (14-59) U/L Alkaline Phosphatase (46-116) U/L Troponin I (0.00-0.056) ng/mL C-Reactive Protein (<1.0) mg/dL NT-Pro-B Natriuret Pep (0-450) pg/mL Total Protein (6.4-8.2) g/dl Albumin (3.4-5.0) g/dl Globulin gm/dL Albumin/Globulin Ratio (1-2) Lipase (73-393) U/L Urine Color (Yellow) Urine Appearance (Clear) Urine pH (5.0-8.0) Ur Specific [place] (1.005-1.030) Urine Protein (Negative) Urine Glucose (UA) (Negative) Urine Ketones (Negative) Urine Occult Blood (Negative) Urine Nitrite (Negative) Urine Bilirubin (Negative) Urine Urobilinogen (0.2-1.0) Ur Leukocyte Esterase (Negative) Urine RBC (0-5) /hpf Urine WBC (0-5) /hpf Ur Epithelial Cells (0-5) /hpf Urine Bacteria (FEW) /hpf Urine Mucus (FEW) /hpf 12/05/17 12/05/17 12/05/17 Range/Units 21:11 21:30 22:13 WBC Corrected WBC RBC Hgb Hct MCV MCH MCHC RDW Std Deviation Plt Count MPV Neut % (Auto) Lymph % (Auto) [place] % (Auto) Eos % (Auto) Baso % (Auto) Neut # (Auto) Lymph # (Auto) [place] # (Auto) Eos # (Auto) Baso # (Auto) Neutrophils % (Manual) (40-60) % Band Neutrophils % (0-10) % Lymphocytes % (Manual) (20-40) % Atypical Lymphs % % Monocytes % (Manual) (2-10) % Eosinophils % (Manual) (0.7-5.8) % Basophils % (Manual) (0.1-1.2) Manual Slide Review Toxic Granulation Platelet Estimate Plt Morphology Comment Anisocytosis RBC Morph Comment PT (8.0-13.0) SECONDS INR APTT (22-36) SECONDS D-Dimer, Quantitative (0.19-0.59) mg/L Puncture Site ABG pH (7.35-7.45) ABG pCO2 (35.0-45.0) mmHg ABG pO2 (80.0-100.0) mmHg ABG HCO3 (22.0-26.0) meq/L ABG O2 Saturation (96.0-97.0) % ABG Base Excess (-2-2.0) Oscar Test O2 Delivery Device Oxygen Flow Rate FiO2 (21.00-100.00) % Sodium (136-145) mEq/L Potassium (3.5-5.1) mEq/L Chloride (98-107) mEq/L Carbon Dioxide (21-32) mEq/L Anion Gap (5-15) BUN (7-18) mg/dL Creatinine (0.55-1.02) mg/dL Est Cr Clr Drug Dosing mL/min Estimated GFR (MDRD) (>60) mL/min BUN/Creatinine Ratio (14-18) Glucose (83-115) mg/dL POC Glucose 70 L 73 L (83-110) mg/dL Lactic Acid (0.4-2.0) mmol/L Calcium (8.5-10.1) mg/dL Total Bilirubin (0.2-1.0) mg/dL AST (15-37) U/L ALT (14-59) U/L Alkaline Phosphatase (46-116) U/L Troponin I 0.251 H* (0.00-0.056) ng/mL C-Reactive Protein (<1.0) mg/dL NT-Pro-B Natriuret Pep (0-450) pg/mL Total Protein (6.4-8.2) g/dl Albumin (3.4-5.0) g/dl Globulin gm/dL Albumin/Globulin Ratio (1-2) Lipase (73-393) U/L Urine Color (Yellow) Urine Appearance (Clear) Urine pH (5.0-8.0) Ur Specific [place] (1.005-1.030) Urine Protein (Negative) Urine Glucose (UA) (Negative) Urine Ketones (Negative) Urine Occult Blood (Negative) Urine Nitrite (Negative) Urine Bilirubin (Negative) Urine Urobilinogen (0.2-1.0) Ur Leukocyte Esterase (Negative) Urine RBC (0-5) /hpf Urine WBC (0-5) /hpf Ur Epithelial Cells (0-5) /hpf Urine Bacteria (FEW) /hpf Urine Mucus (FEW) /hpf 12/05/17 Range/Units 23:26 WBC Corrected WBC RBC Hgb Hct MCV MCH MCHC RDW Std Deviation Plt Count MPV Neut % (Auto) Lymph % (Auto) [place] % (Auto) Eos % (Auto) Baso % (Auto) Neut # (Auto) Lymph # (Auto) [place] # (Auto) Eos # (Auto) Baso # (Auto) Neutrophils % (Manual) (40-60) % Band Neutrophils % (0-10) % Lymphocytes % (Manual) (20-40) % Atypical Lymphs % % Monocytes % (Manual) (2-10) % Eosinophils % (Manual) (0.7-5.8) % Basophils % (Manual) (0.1-1.2) Manual Slide Review Toxic Granulation Platelet Estimate Plt Morphology Comment Anisocytosis RBC Morph Comment PT (8.0-13.0) SECONDS INR APTT (22-36) SECONDS D-Dimer, Quantitative (0.19-0.59) mg/L Puncture Site ABG pH (7.35-7.45) ABG pCO2 (35.0-45.0) mmHg ABG pO2 (80.0-100.0) mmHg ABG HCO3 (22.0-26.0) meq/L ABG O2 Saturation (96.0-97.0) % ABG Base Excess (-2-2.0) Oscar Test O2 Delivery Device Oxygen Flow Rate FiO2 (21.00-100.00) % Sodium (136-145) mEq/L Potassium (3.5-5.1) mEq/L Chloride (98-107) mEq/L Carbon Dioxide (21-32) mEq/L Anion Gap (5-15) BUN (7-18) mg/dL Creatinine (0.55-1.02) mg/dL Est Cr Clr Drug Dosing mL/min Estimated GFR (MDRD) (>60) mL/min BUN/Creatinine Ratio (14-18) Glucose (83-115) mg/dL POC Glucose 120 H (83-110) mg/dL Lactic Acid (0.4-2.0) mmol/L Calcium (8.5-10.1) mg/dL Total Bilirubin (0.2-1.0) mg/dL AST (15-37) U/L ALT (14-59) U/L Alkaline Phosphatase (46-116) U/L Troponin I (0.00-0.056) ng/mL C-Reactive Protein (<1.0) mg/dL NT-Pro-B Natriuret Pep (0-450) pg/mL Total Protein (6.4-8.2) g/dl Albumin (3.4-5.0) g/dl Globulin gm/dL Albumin/Globulin Ratio (1-2) Lipase (73-393) U/L Urine Color (Yellow) Urine Appearance (Clear) Urine pH (5.0-8.0) Ur Specific [place] (1.005-1.030) Urine Protein (Negative) Urine Glucose (UA) (Negative) Urine Ketones (Negative) Urine Occult Blood (Negative) Urine Nitrite (Negative) Urine Bilirubin (Negative) Urine Urobilinogen (0.2-1.0) Ur Leukocyte Esterase (Negative) Urine RBC (0-5) /hpf Urine WBC (0-5) /hpf Ur Epithelial Cells (0-5) /hpf Urine Bacteria (FEW) /hpf Urine Mucus (FEW) /hpf Meds: Medications Generic Name Dose Route Start Last Admin Trade Name Robbyq PRN Reason Stop Dose Admin Sodium Chloride 100 mls @ 75 mls/hr 12/05/17 20:45 12/05/17 21:00 Normal Saline IV 75 mls/hr ASDIRECTED CJ Administration Sodium Chloride 10 ml 12/05/17 17:55 12/05/17 18:10 Saline Flush FLUSH 10 ml ASDIRECTED PRN Administration Keep Vein Open Sodium Chloride 10 ml 12/05/17 20:36 12/05/17 21:00 Saline Flush FLUSH 10 ml ONETIME PRN Administration IV FLUSH Discontinued Medications Generic Name Dose Route Start Last Admin Trade Name Sherri PRN Reason Stop Dose Admin Acetaminophen 975 mg 12/05/17 17:55 12/05/17 18:19 Tylenol PO 12/05/17 17:56 975 mg NOW ONE Administration Aspirin 324 mg 12/05/17 22:30 12/05/17 22:36 Aspirin PO 12/05/17 22:31 324 mg ONETIME ONE Administration Sodium Chloride Confirm 12/05/17 17:53 12/05/17 18:22 Normal Saline Administered 12/05/17 17:54 Not Given Dose 1,000 mls @ as directed .ROUTE .STK-MED ONE Sodium Chloride 1,000 mls @ 250 mls/hr 12/05/17 17:53 12/05/17 18:18 Normal Saline IV 12/05/17 21:52 250 mls/hr ASDIRECTED ONE Administration Ceftriaxone Sodium 2 gm/ 100 mls @ 100 mls/hr 12/05/17 19:07 12/05/17 19:32 Sodium Chloride IV 12/05/17 20:06 100 mls/hr ONETIME ONE Administration Clindamycin Phosphate 600 mg/ 104 mls @ 100 mls/hr 12/05/17 19:07 12/05/17 21 :04 Sodium Chloride IV 12/05/17 20:09 100 mls/hr ONETIME ONE Administration Iopamidol 100 ml 12/05/17 20:36 12/05/17 21:00 Isovue-370 (76%) IVPUSH 12/05/17 20:37 100 ml ONETIME ONE Administration Iopamidol 50 ml 12/05/17 20:36 12/05/17 21:00 Isovue-370 (76%) IVPUSH 12/05/17 20:37 50 ml ONETIME ONE Administration - Radiology Interpretation Free Text/Narrative:: IV established with normal saline 250 mL per hour to total 500 ml bolus. Patient's temperature is 103F and rising.Ordered Tylenol 975 mg by mouth. Patient meets sepsis criteria. Patient has a history of diastolic CHF thus will have to be very strict with IV fluids. Initial labs and studies will include CBC, chem 14, blood cultures 2, CRP, coags studies, lactic acid, lipase, proBNP, coag studies, troponin, UA, chest x- ray two-view, influenza screen, and x-ray of the abdomen. Labs reviewed: White blood cell count 13.61, hemoglobin 9.9, platelets 23, neutrophil percentage is 93.9, neutrophil number is 12.79. Will obtain May noted. Sodium 140, potassium 4.5, CO2 25, AG 15.5, creatinine 1.3, glucose is 112, troponin 0.043, CRP 1.1, lipase 166. Chest x-ray revealed questionable pneumonia to the right lower lung. This was reviewed with Dr. Parker. Thus ordered Rocephin 2 g IV and also clindamycin 600 mg IV with hx of aspiration pneumonia. Abdomen x-ray was poor thus limiting interpretation. She has no pain on palpation although two episodes of emesis prior to arrival. Lactic acid and d-dimer are still pending. Patient on her second 250 bolus of IV fluids. Heart rate has not trended downward. Blood pressure remains stable. Patient remains 95% on 2 L via nasal cannula. Reassessment, patient's blood pressure 96/49 heart rate 118, SPO2 96, respiratory rate 32. Patient states she is feeling much better. D-dimer came back at 2.35. Patient is tachypneic and tachycardiac. Will obtain CT of the chest PE protocol. Temp recheck 101.9. UA negative for infection. Trace intact blood. 2+ protein. Lactic acid 1.7 and proBNP 493. Blood gas ABG pH 7.43, PCO2 37.7, PO2 68, O2 saturation 95.4. Influenza screen pending. 2101 influenza screen was negative. CT of the chest is underway. CT of the chest impression: No pulmonary thromboembolic disease. Signs most likely indicative of air trapping secondary to reactive airway disease or bronchitis/bronchiolitis. 2119 patient is requesting to be admitted to [facility]. Not have the second troponin back. Discussed patient with Dr. Monzon shank boner hospitalist. Request patient be transferred to [place]. 2129 second troponin 0.251. [address] Urias shank boner hospitalist and [place]. He is concerned that patient is septic with NSTEMI may require ICU admission. [facility] ICU is full. Request patient seek admission elsewhere. 2149 reassessment, blood pressure 106/42, heart rate 110 sinus in nature, SPO2 98%, respiratory rate trending downward 25. 225 spoke with the family and they're okay with transporting to [facility] if they have beds available. Spoke with [facility] admission coordinator. They are only excepting patients with STEMI, trauma, or CVA. [address] Lima on-call hospitalist at [facility]. She has accepted the patient. Patient will be transported by [facility]. All transfer paperwork has been completed. Departure - Departure Time of Disposition: 21:20 Disposition: DC/Tfer to Acute Hospital 02 Condition: Fair Clinical Impression: Fever of unknown origin, Supplemental oxygen dependent, Non-STEMI (non-ST elevated myocardial infarction) - Discharge Information Referrals: PCP,None [Primary Care Provider] - Forms: ED Department Discharge - My Orders Last 24 Hours: My Active Orders 12/05/17 17:52 Blood Culture x2 Reflex Set [OM.PC] Stat 12/05/17 17:55 Peripheral IV Care [RC] . DIRECTED Sodium Chloride 0.9% [Saline Flush] 10 ml FLUSH ASDIRECTED PRN Peripheral IV Insertion Adult [OM.PC] Stat 12/05/17 18:03 EKG Documentation Completion [RC] STAT 12/05/17 18:25 CULTURE BLOOD [BC] Stat 12/05/17 18:30 Abdomen 1V Flat [CR] Stat Chest 1V Frontal [CR] Stat 12/05/17 19:15 CULTURE BLOOD [BC] Stat 12/05/17 20:09 PE Chest [Ang Chest] [CT] Stat 12/05/17 20:36 Sodium Chloride 0.9% [Saline Flush] 10 ml FLUSH ONETIME PRN 12/05/17 20:45 Sodium Chloride 0.9% [Normal Saline] 100 ml IV ASDIRECTED 12/05/17 22:34 EKG Documentation Completion [RC] STAT - Assessment/Plan Last 24 Hours: My Active Orders 12/05/17 17:52 Blood Culture x2 Reflex Set [OM.PC] Stat 12/05/17 17:55 Peripheral IV Care [RC] . DIRECTED Sodium Chloride 0.9% [Saline Flush] 10 ml FLUSH ASDIRECTED PRN Peripheral IV Insertion Adult [OM.PC] Stat 12/05/17 18:03 EKG Documentation Completion [RC] STAT 12/05/17 18:25 CULTURE BLOOD [BC] Stat 12/05/17 18:30 Abdomen 1V Flat [CR] Stat Chest 1V Frontal [CR] Stat 12/05/17 19:15 CULTURE BLOOD [BC] Stat 12/05/17 20:09 PE Chest [Ang Chest] [CT] Stat 12/05/17 20:36 Sodium Chloride 0.9% [Saline Flush] 10 ml FLUSH ONETIME PRN 12/05/17 20:45 Sodium Chloride 0.9% [Normal Saline] 100 ml IV ASDIRECTED 12/05/17 22:34 EKG Documentation Completion [RC] STAT
[2017-12-05] MEDS ORDERED: Clindamycin Phosphate 600 MG in Sodium Chloride 0.9% 100 ML IV ONE (19:07)
[2017-12-05] MEDS ORDERED: cefTRIAXone 2 GM in Sodium Chloride 0.9% 100 ML IV ONE (19:07)
[2017-12-05] MEDS ORDERED: Iopamidol 755 MG/ML 50 ML Bottle IVPUSH ONE (20:36)
[2017-12-05] MEDS ORDERED: Iopamidol 755 Mg/ML 100 ML Bottle IVPUSH ONE (20:36)
[2017-12-05] MEDS ORDERED: Sodium Chloride 0.9% 100 ML IV SCH (20:45)
[2017-12-05] MEDS ORDERED: Aspirin 81 MG Tab.Chew PO ONE (22:30)
--- NOTE | 2017-12-06 08:45 | CR ---
Abdomen: Supine view of the abdomen was obtained. Comparison: No prior abdominal x-ray, prior CT abdomen and pelvis study of 04/21/17. Bowel gas pattern appears within normal limits. Calcification is seen within the pelvis most likely vascular. Bony structures show degenerative change within the thoracic spine and upper lumbar spine. No discrete soft tissue abnormality is seen. Impression: 1. Incidental findings. Diagnostic code #2
--- NOTE | 2017-12-06 08:46 | CR ---
Chest: Portable view of the chest was obtained. Comparison: Prior chest x-ray of 04/21/17. Heart size accentuated from portable technique and felt to be at the upper limits of normal. Lungs are clear with no acute pulmonary densities. Bony structures are grossly intact. Impression: 1. Nothing acute is appreciated on portable chest x-ray. Diagnostic code #2
--- NOTE | 2017-12-06 08:46 | CT ---
CT chest Technique: Multiple axial sections were obtained from above the lung apices inferiorly through the lung bases. Intravenous contrast was utilized. Intravenous contrast not optimal for evaluation of pulmonary embolism. Comparison: Prior CT chest performed as a pulmonary angiogram protocol dated 05/06/14. Findings: No pulmonary emboli are seen within the main or segmental branches. Smaller subsegmental pulmonary emboli could be missed. Heart is enlarged. Extensive coronary artery calcification is noted. Mild atherosclerotic change is noted within the thoracic aorta without aneurysm. No mediastinal adenopathy is seen. Small subpleural nodule is identified within the left lung base measuring 7 mm. Hazy ground-glass appearance is seen within both lungs. Minimal linear scarring is seen within the left base. Scattered degenerative change is noted throughout the thoracic spine. Impression: 1. Less than optimal opacification of the pulmonary arteries. No findings of pulmonary embolism within the main or segmental branches. Smaller subsegmental pulmonary emboli could be missed. 2. Small subpleural nodule measuring 7 mm within the left base. This is a stable finding from prior CT exam and is therefore felt to be incidental. 3. Hazy ground-glass appearance raising the possibility of bronchitis with mild areas of atelectasis. Diagnostic code #3 Agree with preliminary report issued by [facility] ([facility] preliminary report dictated on 12/05/17, 10:25 PM Central Time)
== END 2017-12-05 23:34 ==
LOC: JD.ED 17:25
DX: I21.4 Non-ST elevation (NSTEMI) myocardial infarction (principal); E11.621 Type 2 diabetes mellitus with foot ulcer; L97.529 Non-pressure chronic ulcer of other part of left foot with unspecified severity; R50.9 Fever, unspecified; I11.0 Hypertensive heart disease with heart failure; I50.30 Unspecified diastolic (congestive) heart failure; E78.00 Pure hypercholesterolemia, unspecified; E11.22 Type 2 diabetes mellitus with diabetic chronic kidney disease; E66.9 Obesity, unspecified; Z79.899 Other long term (current) drug therapy; Z88.5 Allergy status to narcotic agent; Z79.4 Long term (current) use of insulin
CPT/HCPCS: 36415; 36600; 71045; 71275; 74018; 80053; 81001; 82803; 82962; 83605; 83690; 83880; 84484; 85025; 85379; 85610; 85730; 86140; 87040; 87804; 93005; 96361; 96365; 96367; 99285; A9270; J0696; J7030; J7040; J7050; Q9967; 93010

== ENCOUNTER 2019-02-24 13:05 | Emergency (ER) | payer MEDICARE, BC ==
[2019-02-24 13:17] VITALS: BP 154/58
--- NOTE | 2019-02-24 13:55 | EDM.PDOC ---
ED HPI GENERAL MEDICAL PROBLEM - General Chief Complaint: Upper Extremity Injury/Pain Stated Complaint: RT SHOULDER PAIN Time Seen by Provider: 02/24/19 13:12 Source of Information: Reports: Patient, Family (Daughter), RN Notes Reviewed History Limitations: Reports: No Limitations - History of Present Illness INITIAL COMMENTS - FREE TEXT/NARRATIVE: The patient states that she has rheumatoid arthritis, that she sees a Operative Supervisor, and is on chronic prednisone, among other medications. She last saw her Operative Supervisor on , 02/14/2019. The patient also has osteoarthritis, s/p bilateral knee replacements. The patient states that she developed right shoulder pain on 02/18/2019. The pain is felt to the superior lateral aspect of the shoulder, as well as to her superior scapular area. Pain is only present if she moves her shoulder, particularly if she attempts to reach up. She has no pain if she keeps her shoulder still. No injury to the shoulder. No prior similar symptoms. The patient's PCP is Dr. Abraham Ramirez. The patient's Operative Supervisor is Dr. Brisa Tovar. The patient's Automatic Line Set Up Mechanic is Dr. Wei Gong. The patient's Basket Person is Dr. Abdiaziz Pemberton. Right Upper Arm Pain Score (Numeric/FACES): 7 - Related Data Allergies Allergy/AdvReac Type Severity Reaction Status Date / Time atorvastatin Allergy Cannot Verified 02/24/19 13:20 Remember fentanyl Allergy Respiratory Verified 02/24/19 13:20 Depression hydrocodone Allergy Respiratory Verified 02/24/19 13:20 Distress oxycodone [Oxycodone] Allergy Respiratory Verified 02/24/19 13:20 Distress tramadol Allergy Respiratory Verified 02/24/19 13:20 Distress Home Meds: Home Meds Insulin Glarg,Human.Rec.Analog [Lantus Solostar] 30 unit SQ BID 05/07/14 [ History] Magnesium 250 mg PO DAILY 05/07/14 [History] Furosemide [Lasix] 40 mg PO DAILY 03/08/16 [History] predniSONE [Prednisone] 0.05 mg PO DAILY 03/08/16 [History] Dextrose [Glucose] 4 gm PO DAILY PRN 04/21/17 [History] Fish Oil/[place]-3 Fatty Acids [Fish Oil 1,000 MG] 1 cap PO DAILY 04/21/17 [ History] Insulin Aspart [Novolog] 10 unit SQ TID 04/21/17 [History] Lisinopril 20 mg PO DAILY 04/21/17 [History] Multivits,Ca,Minerals/Iron/FA [Thera-M] 1 each PO DAILY 04/21/17 [History] Ezetimibe [Zetia] 10 mg PO DAILY 05/09/18 [History] Omeprazole Magnesium [Prilosec Otc] 20 mg PO DAILY 05/09/18 [History] Pravastatin [Pravachol] 40 mg PO DAILY 05/09/18 [History] Ubidecarenone [Coq-10] 1 tab PO DAILY 05/09/18 [History] Rimantadine HCl [Flumadine] 100 mg PO DAILY 02/24/19 [History] hydroCHLOROthiazide [Hydrochlorothiazide] 02/24/19 [History] Past Medical History HEENT History: Reports: Allergic Rhinitis, Cataract, Impaired Vision Cardiovascular History: Reports: Heart Failure, High Cholesterol, Hypertension, PVD Respiratory History: Reports: Sleep Apnea Gastrointestinal History: Reports: Diverticulosis, Gastritis, GERD, Hemorrhoids , PUD Genitourinary History: Reports: Acute Renal Failure (resolved), Urinary Incontinence 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: Musculoskeletal History: Reports: Osteoarthritis Psychiatric History: Reports: Anxiety, Depression Endocrine/Metabolic History: Reports: Diabetes, Type II, Obesity/BMI 30+ Hematologic History: Reports: Anemia Immunologic History: Reports: Other (See Below) (RA) Dermatologic History: Reports: Cellulitis - Past Surgical History GI Surgical History: Reports: Appendectomy, Cholecystectomy (around 2013), Colonoscopy (x 1), EGD (x 1) Musculoskeletal Surgical History: Reports: Amputation (left great toe), Carpal Tunnel, Knee Replacement (bilateral) Oncologic Surgical History: Reports: Biopsy of Breast (left, benign) Social & Family History - Family History Family Medical History: Noncontributory - Tobacco Use Smoking Status *Q: Never Smoker Second Hand Smoke Exposure: Yes - Caffeine Use Caffeine Use: Reports: Coffee, Tea - Alcohol Use Alcohol Use History: No - Recreational Drug Use Recreational Drug Use: No - Living Situation & Occupation Living situation: Reports: , with Family (Daughter) Occupation: Retired Review of Systems - Review of Systems Review Of Systems: ROS reveals no pertinent complaints other than HPI. GI/Abdominal: Reports: Constipation ED EXAM, GENERAL - Physical Exam Exam: See Below Exam Limited By: No Limitations General Appearance: Alert, WD/WN, No Apparent Distress Extremities: Other (No visible abnormality to the right shoulder, such as swelling, erythema, ecchymosis, or abrasion. There is tenderness primarily over the superior lateral aspect of the shoulder, as well as to the lateral supraspinatus muscle/tendon. No pain is induced in the shoulder with resistance against all motions, with the exception of abduction of the shoulder only. Pain is not induced with PROM to the shoulder, although she has limited external rotation and abduction of the shoulder. Pain is induced with AROM, particularly with extension, abduction, and external rotation. Neurovascular status of the right upper extremity is intact.) Course - Vital Signs Last Recorded V/S: Last Vital Signs Temp 36.7 C 02/24/19 13:11 Pulse 72 02/24/19 13:11 Resp 15 02/24/19 13:11 BP 154/58 H 02/24/19 13:11 Pulse Ox 96 02/24/19 13:11 - Orders/Labs/Meds Orders: Active Orders 24 hr Category Date Time Status Shoulder Comp Rt [CR] Stat Exams 02/24/19 13:51 Taken - Re-Assessments/Exams Free Text/Narrative Re-Assessment/Exam: 02/24/19 13:52 The patient's history and physical examination are most consistent with deltoid bursitis versus rotator cuff tendinitis. There may also be some degree of adhesive capsulitis, as the patient's active and passive range of motion is somewhat limited. I have ordered x-rays of the shoulder. I expect to find arthritic changes but no fracture. 02/24/19 14:30 3-view radiographs of the right shoulder appear to demonstrate degenerative changes, but no fracture or dislocation is identified. Formal read per the Radiologist pending. 02/24/19 14:40 X-ray results discussed with the patient and her daughter. As above, I suspect that the patient's pain is due to deltoid bursitis versus rotator cuff tendinitis. As the patient is already on prednisone, she cannot be on an NSAID, as this would significantly increase her risk of a GI bleed. She may, however, be a candidate for local injection with a steroid. As Dr. Henry is out of town until 03/05/2019, I will refer the patient to an Orthopedic Surgeon at [facility]. Departure - Departure Time of Disposition: 14:41 Disposition: Home, Self-Care 01 Condition: Good Clinical Impression: Right shoulder pain - Discharge Information *PRESCRIPTION DRUG MONITORING PROGRAM REVIEWED*: Not Applicable *COPY OF PRESCRIPTION DRUG MONITORING REPORT IN PATIENT MARY ALICE: Not Applicable Instructions: Shoulder Pain, [id number] Referrals: Abraham Ramirez MD [Primary Care Provider] - George Garcia MD [Ordering Only Provider] - Brisa Tovar MD [Ordering Only Provider] - Wei Gong MD [Ordering Only Provider] - Abdiaziz Pemberton II, DPM [Physician] - Forms: ED Department Discharge Additional Instructions: You were seen in the emergency room for 1 week of right shoulder pain, without injury. Workup in the ER included x-rays of your right shoulder, which showed degenerative changes, but no broken bones or dislocations. Based on your history, physical exam, and x-rays, your shoulder pain is most likely due to either deltoid bursitis or rotator cuff tendinitis. Because you are already on a steroid, you cannot take an NSAID, such as aspirin , ibuprofen, or naproxen. You may, however, be a candidate for a steroid injection into your shoulder. Please follow-up with the Orthopedic Surgeon Dr. George Garcia, in [place], at the next available appointment. If any other problems, please do not hesitate to return to the ER. - My Orders Last 24 Hours: My Active Orders 02/24/19 13:51 Shoulder Comp Rt [CR] Stat - Assessment/Plan Last 24 Hours: My Active Orders 02/24/19 13:51 Shoulder Comp Rt [CR] Stat
--- NOTE | 2019-02-25 07:28 | CR ---
Right shoulder: Three views of the right shoulder were obtained. Comparison: No prior right shoulder study. Degenerative change is noted within the glenohumeral joint. There is remodeling of the undersurface of the acromion process suggesting chronic rotator cuff tear. No acute fracture, dislocation or other bony abnormality is identified. Impression: 1. Degenerative change as noted above with probable chronic rotator cuff tear. Diagnostic code #3
== END 2019-02-24 15:48 | disposition home or self-care (01) ==
LOC: JD.ED 13:05
DX: M25.511 Pain in right shoulder (principal); I11.0 Hypertensive heart disease with heart failure; I50.9 Heart failure, unspecified; E78.00 Pure hypercholesterolemia, unspecified; F41.9 Anxiety disorder, unspecified; F32.9 Major depressive disorder, single episode, unspecified; D64.9 Anemia, unspecified; Z77.22 Contact with and (suspected) exposure to environmental tobacco smoke (acute) (chronic); Z79.899 Other long term (current) drug therapy; Z88.8 Allergy status to other drugs, medicaments and biological substances; Z88.6 Allergy status to analgesic agent
CPT/HCPCS: 73030-26-RT; 73030-RT; 99282; 99283-25

== ENCOUNTER 2019-05-31 08:58 | Day surgery (SDC) | payer MEDICARE, BC ==
[~2019-05-31 08:58] MED LIST: Lactated Ringers 1,000 ML IV SCH; Lidocaine 1% 4 ML ONE; Lidocaine 1%/Sod Bicarbonate in NS 8.4% 1 ML Syringe IDERM PRN; Propofol 200 MG/20 ML SDV ONE; Sodium Chloride 0.9% 10 ML Syringe FLUSH PRN; fentaNYL 100 MCG/2 ML SDV ONE
[2019-05-31] MEDS ORDERED: Lidocaine 1% 30 ML SDV ONE (09:00)
--- NOTE | 2019-05-31 10:11 | PCM.PREANE ---
Preanesthetic Assessment - Procedure Proposed Procedure: Amputation left 3rd toe - Anesthesia/Transfusion/Family Hx Anesthesia History: Prior Anesthesia Without Reaction Family History of Anesthesia Reaction: No Transfusion History: Prior Transfusion Without Reaction Intubation History: Unknown - Review of Systems General: No Symptoms Pulmonary: Shortness of Breath, Other (due to cardiology order on home o2 2 l/ min during day, 6 lpm at night ) Cardiovascular: Edema (being followed ) Gastrointestinal: No Symptoms Neurological: No Symptoms, Numbness (rheumatid causing hands to be numb and tingly ), Tingling Other: Reports: Depression - Physical Assessment NPO Status Date: 05/31/19 NPO Status Time: 19:00 Vital Signs: Last Vital Signs Temp 36.2 C 05/31/19 09:10 Pulse 76 05/31/19 09:10 Resp 16 05/31/19 09:10 BP 155/87 H 05/31/19 09:10 Pulse Ox 94 L 05/31/19 09:10 Height: 1.52 m ASA Class: 4 Mental Status: Alert & Oriented x3 Airway Class: Mallampati = 1 Dentition: Reports: Missing Tooth/Teeth (chipped tooth left front ) Thyro-Mental Finger Breadths: 3 Mouth Opening Finger Breadths: 4 ROM/Head Extension: Full Lungs: Clear to Auscultation, Normal Respiratory Effort Cardiovascular: Regular Rate, Regular Rhythm, Murmurs - Lab Values: Laboratory Last Values POC Glucose 114 mg/dL (83-110) H 05/31/19 09:55 - Allergies Allergies/Adverse Reactions: Allergies Allergy/AdvReac Type Severity Reaction Status Date / Time atorvastatin Allergy Cannot Verified 05/30/19 11:00 Remember fentanyl Allergy Respiratory Verified 05/30/19 11:00 Depression hydrocodone Allergy Respiratory Verified 05/30/19 11:00 Distress oxycodone [Oxycodone] Allergy Respiratory Verified 05/30/19 11:00 Distress tramadol Allergy Respiratory Verified 05/30/19 11:00 Distress - Blood Blood Available: No - Anesthesia Plan Pre-Op Medication Ordered: None - Acknowledgements Anesthesia Type Planned: MAC Pt an Appropriate Candidate for the Planned Anesthesia: Yes Alternatives and Risks of Anesthesia Discussed w Pt/Guardian: Yes Pt/Guardian Understands and Agrees with Anesthesia Plan: Yes PreAnesthesia Questionnaire HEENT History: Reports: Allergic Rhinitis, Cataract, Impaired Vision Cardiovascular History: Reports: Heart Failure, Heart Murmur, High Cholesterol, Hypertension, Pulmonary Hypertension, PVD Other Cardiovascular History: aortic stenosis, CHF, cor pulmonae, NSTEMI, aortic stenosis, edema Respiratory History: Reports: Sleep Apnea Other Respiratory History: pulmonary HTN, respiratory failure, hypoxemia, chronic o2 use at 2L per nasal canula during day, 6 L at night Gastrointestinal History: Reports: Diverticulosis, Gastritis, GERD, Hemorrhoids , PUD Other Gastrointestinal History: Stomach ulcer, transaminitis, hemorrhagic gastritis Genitourinary History: Reports: Acute Renal Failure, Urinary Incontinence Other Genitourinary History: acute renal failure 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: Musculoskeletal History: Reports: Osteoarthritis, RA Other Musculoskeletal History: knee pain Neurological History: Reports: None Psychiatric History: Reports: Anxiety, Depression Endocrine/Metabolic History: Reports: Diabetes, Type II, Obesity/BMI 30+ Hematologic History: Reports: Anemia Immunologic History: Reports: None Oncologic (Cancer) History: Reports: None Dermatologic History: Reports: Cellulitis Other Dermatologic History: diabetic ulceration to left great toe - Past Surgical History Head Surgeries/Procedures: Reports: None HEENT Surgical History: Reports: None, Cataract Surgery Cardiovascular Surgical History: Reports: None Respiratory Surgical History: Reports: None GI Surgical History: Reports: Appendectomy, Cholecystectomy, Colonoscopy, EGD, ERCP Female Surgical History: Reports: Breast Biopsy Male Surgical History: Reports: None Endocrine Surgical History: Reports: None Neurological Surgical History: Reports: None Musculoskeletal Surgical History: Reports: Amputation, Carpal Tunnel, Knee Replacement Other Musculoskeletal Surgeries/Procedures:: Bilateral TKR, right great toe amputation Oncologic Surgical History: Reports: Biopsy of Breast - SUBSTANCE USE Smoking Status *Q: Never Smoker Recreational Drug Use History: No - HOME MEDS Home Medications: Home Meds Insulin Glarg,Human.Rec.Analog [Lantus Solostar] 30 unit SQ BID 05/07/14 [ History] Magnesium 250 mg PO DAILY 05/07/14 [History] Furosemide [Lasix] 40 mg PO DAILY 03/08/16 [History] predniSONE [Prednisone] 5 mg PO DAILY 03/08/16 [History] Dextrose [Glucose] 4 gm PO DAILY PRN 04/21/17 [History] Fish Oil/[place]-3 Fatty Acids [Fish Oil 1,000 MG] 1 cap PO DAILY 04/21/17 [ History] Insulin Aspart [Novolog] 4 - 15 unit SQ TID 04/21/17 [History] Lisinopril 20 mg PO DAILY 04/21/17 [History] Multivits,Ca,Minerals/Iron/FA [Thera-M] 1 each PO DAILY 04/21/17 [History] Ezetimibe [Zetia] 10 mg PO DAILY 05/09/18 [History] Omeprazole Magnesium [Prilosec Otc] 20 mg PO DAILY 05/09/18 [History] Pravastatin [Pravachol] 40 mg PO DAILY 05/09/18 [History] Ubidecarenone [Coq-10] 1 tab PO DAILY 05/09/18 [History] Rimantadine HCl [Flumadine] 100 mg PO DAILY 02/24/19 [History] hydroCHLOROthiazide [Hydrochlorothiazide] 12.5 mg PO DAILY 02/24/19 [History] Acetaminophen [Tylenol Extra Strength] 500 - 1,000 mg PO Q6H PRN 05/30/19 [ History] Dicloxacillin 500 g PO BID 05/30/19 [History] Leflunomide [Arava] 20 mg PO DAILY 05/30/19 [History] Metoprolol Tartrate [Lopressor] 25 mg PO BID 05/30/19 [History] Triamcinolone Acetonide [Triamcinolone Acetonide 0.1% Crm] 1 dose TOP BID PRN [History] - CURRENT (IN HOUSE) MEDS Current Meds: Current Medications Lactated Ringer's (Ringers, Lactated) 1,000 mls @ 125 mls/hr IV ASDIRECTED CJ Stop: 05/31/19 23:00 Lidocaine/Sodium Bicarbonate (Buffered Lidocaine 1% In Ns 8.4%) 0.25 ml IDERM ONETIME PRN PRN Reason: Prior to IV Start Stop: 05/31/19 18:00 Sodium Chloride (Saline Flush) 10 ml FLUSH ASDIRECTED PRN PRN Reason: Keep Vein Open Stop: 05/31/19 18:00 Discontinued Medications Bupivacaine HCl (Marcaine 0.5%) Confirm Administered Dose 30 ml .ROUTE .STK-MED ONE Stop: 05/31/19 09:01 Fentanyl (Sublimaze) Confirm Administered Dose 100 mcg .ROUTE .STK-MED ONE Stop: 05/31/19 08:53 Lidocaine HCl (Xylocaine-Mpf 1%) Confirm Administered Dose 4 mls @ as directed .ROUTE .STK-MED ONE Stop: 05/31/19 08:55 Lidocaine HCl (Xylocaine-Mpf 1%) Confirm Administered Dose 4 mls @ as directed .ROUTE .STK-MED ONE Stop: 05/31/19 08:55 Lidocaine HCl (Xylocaine-Mpf 1%) Confirm Administered Dose 30 ml .ROUTE .STK- MED ONE Stop: 05/31/19 09:01 Propofol (Diprivan 20 Ml) Confirm Administered Dose 200 mg .ROUTE .STK-MED ONE Stop: 05/31/19 08:53
[2019-05-31] MEDS ORDERED: Ketamine 500 mg/10 ML MDV ONE (10:27)
[2019-05-31] MEDS: Bupivacaine 0.5% 30 ML SDV ONE ×2 (10:30→11:01)
--- NOTE | 2019-05-31 11:33 | PCM.OPNOTE ---
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 Post-Op Diagnosis: Same Anesthesia Technique: Local, MAC Primary Surgeon: Abdiaziz Pemberton II Anesthesia Provider: Trevor MCMAHON in mLs: 10 Drain/Tube Comments:: none Condition: Good Free Text/Narrative:: Patient left the OR for recovery with vital signs stable & vascular status intact to digits 1-5 LEFT foot.
[2019-05-31 12:10] VITALS: BP 147/54
--- NOTE | 2019-05-31 12:56 | OR ---
DATE OF OPERATION: 05/31/2019 SURGEON: Abdiaziz Pemberton II, DPM LOCATION: [facility]. ANESTHESIA: MAC with local block about the left 3rd toe. ANESTHESIA PROVIDER: Unknown right now. HEMOSTASIS: Left pneumatic ankle tourniquet at 250 mmHg pressure. PREOPERATIVE DIAGNOSIS: 1. Painful and symptomatic diabetic ulceration, left 3rd toe. 2. Painful and symptomatic rigid hammertoe contracture, left 3rd toe. POSTOPERATIVE DIAGNOSIS: 1. Painful and symptomatic diabetic ulceration, left 3rd toe. 2. Painful and symptomatic rigid hammertoe contracture, left 3rd toe. OPERATION PERFORMED: Amputation of left 3rd toe to metatarsophalangeal joint. DESCRIPTION OF PROCEDURE: Upon arrival and admission to the hospital, the patient was examined and cleared for surgery by the assigned anesthesia provider. IV access was obtained in the preoperative area after which the patient was given prophylactic antibiotics consisting of 3 g of Ancef IV piggyback. The patient was then brought to the OR via gurney and left on the gurney. The patient was given a combination of sedations and was adequately sedated before receiving 10 mL of 1:1 mixture of 1% lidocaine plain and 0.5% Marcaine plain in the form of local infiltrative block. Anesthesia was tested and found to be adequate, left lower extremity was wrapped with cotton Webril padding above the ankle joint in preparation for a nonsterile pneumatic ankle tourniquet, which was then draped with a sterile drape. The left lower extremity was then prepped and draped in the usual aseptic manner. The left lower extremity would then be elevated and exsanguinated with the use of an Esmarch bandage before inflating the left pneumatic ankle tourniquet to 250 mmHg pressure. The Esmarch bandage was removed. The left lower extremity was placed back to the level of the operating room table. Attention was then directed to the dorsal aspect of the left 3rd toe, where a fishmouth incision was created at the medial and lateral extent of the left 3rd toe. This was a controlled depth skin incision, taken down to the level of the subcutaneous structures with care taken to retract the vital neurovascular structures within the area as well as to cauterize or ligate all superficial bleeders as deemed necessary. Continuous soft tissue dissection was taken down to the capsular structures, which were then transected and the left 3rd metatarsophalangeal joint was then disarticulated. The left 3rd toe was then fully amputated and removed from the wound in toto. The wound was then copiously lavaged with sterile saline solution and sent to pathology for evaluation. Dressings consisted of Betadine-soaked Adaptic gauze, 4x4 gauze, Kerlix, and an Nabor bandage. Upon completion of the surgery, an additional 10 mL of 0.5% Marcaine plain was injected prior to placement of the dressings, and it was noted upon deflation of the left pneumatic ankle tourniquet that the toes of the left foot became pink indicating normal vascular perfusion returned. The patient appeared to tolerate the procedure and anesthesia well and left the OR for recovery with vital signs being stable and vascular status intact to the left foot with no apparent complications. In recovery, the patient received written and oral postoperative instructions with postoperative pain medication. The patient will ambulate partial weightbearing with a postoperative shoe about her left foot previously dispensed. Estimated blood loss for this procedure was approximately 10 mL and considered negligible. There were no further apparent complications. ESTIMATED BLOOD LOSS: MMODAL /[id number]
== END 2019-05-31 12:00 | disposition home or self-care (01) ==
LOC: JD.SDS 08:58
PROVIDERS: ATTEND Podiatrist Foot & Ankle Surgery
DX: E11.621 Type 2 diabetes mellitus with foot ulcer (principal); L97.529 Non-pressure chronic ulcer of other part of left foot with unspecified severity; M86.172 Other acute osteomyelitis, left ankle and foot; M86.672 Other chronic osteomyelitis, left ankle and foot; M06.9 Rheumatoid arthritis, unspecified; K21.9 Gastro-esophageal reflux disease without esophagitis; I11.0 Hypertensive heart disease with heart failure; I50.9 Heart failure, unspecified; E78.2 Mixed hyperlipidemia; G47.33 Obstructive sleep apnea (adult) (pediatric); E66.9 Obesity, unspecified; Z99.89 Dependence on other enabling machines and devices; Z79.4 Long term (current) use of insulin; Z79.2 Long term (current) use of antibiotics; Z79.899 Other long term (current) drug therapy; Z79.52 Long term (current) use of systemic steroids; Z88.8 Allergy status to other drugs, medicaments and biological substances; Z88.5 Allergy status to narcotic agent; Z88.6 Allergy status to analgesic agent; Z68.43 Body mass index [BMI] 50.0-59.9, adult
CPT/HCPCS: 28820; 82962; J2001; J2704; J3490; J7120; J3010

== ENCOUNTER 2019-09-26 13:15 | Emergency (ER) | payer MEDICARE, BC ==
[2019-09-26 13:38] VITALS: BP 155/59; PULSE 85
--- NOTE | 2019-09-26 13:41 | EDM.PDOC ---
ED HPI GENERAL MEDICAL PROBLEM - General Chief Complaint: Head Injury Stated Complaint: FALL Time Seen by Provider: 09/26/19 13:29 Source of Information: Reports: Patient History Limitations: Reports: No Limitations - History of Present Illness INITIAL COMMENTS - FREE TEXT/NARRATIVE: This is unfortunate 79-year-old morbidly obese female who presents emergency Department today with complaint of fall. Patient was normocephalic to approximate now prior to arrival when she felt lightheaded felt like her blood sugar was low and fell in her kitchen. His most recent time was 70 since that time she has eaten and her blood sugars, she feels normal now however she does have mild pain to her left knee and to her face and head. Patient did not suffer loss of consciousness no nausea no vomiting no fevers no chills shortness of breath patient is not taking any anticoagulant medication Left Knee Pain Score (Numeric/FACES): 1 - Related Data Allergies Allergy/AdvReac Type Severity Reaction Status Date / Time atorvastatin Allergy Cannot Verified 09/26/19 13:39 Remember fentanyl Allergy Respiratory Verified 09/26/19 13:39 Depression hydrocodone Allergy Respiratory Verified 09/26/19 13:39 Distress oxycodone [Oxycodone] Allergy Respiratory Verified 09/26/19 13:39 Distress tramadol Allergy Respiratory Verified 09/26/19 13:39 Distress Home Meds: Home Meds Magnesium 250 mg PO DAILY 05/07/14 [History] Furosemide [Lasix] 40 mg PO DAILY 03/08/16 [History] predniSONE [Prednisone] 5 mg PO DAILY 03/08/16 [History] Dextrose [Glucose] 4 gm PO DAILY PRN 04/21/17 [History] Fish Oil/[place]-3 Fatty Acids [Fish Oil 1,000 MG] 1 cap PO DAILY 04/21/17 [ History] Insulin Aspart [Novolog] 4 - 15 unit SQ TID 04/21/17 [History] Lisinopril 20 mg PO DAILY 04/21/17 [History] Multivit,Calc,Mins/Iron/Folic [Thera-M] 1 each PO DAILY 04/21/17 [History] Ezetimibe [Zetia] 10 mg PO DAILY 05/09/18 [History] Omeprazole Magnesium [Prilosec Otc] 20 mg PO DAILY 05/09/18 [History] Pravastatin [Pravachol] 40 mg PO DAILY 05/09/18 [History] Ubidecarenone [Coq-10] 1 tab PO DAILY 05/09/18 [History] hydroCHLOROthiazide [Hydrochlorothiazide] 12.5 mg PO DAILY 02/24/19 [History] Leflunomide [Arava] 20 mg PO DAILY 05/30/19 [History] Metoprolol Tartrate [Lopressor] 25 mg PO BID 05/30/19 [History] Triamcinolone Acetonide [Triamcinolone Acetonide 0.1% Crm] 1 dose TOP BID PRN [History] Insulin Glargine,Hum.Rec.Anlog [Basaglar Kwikpen U-100] 30 units SUBCUT BID [History] Past Medical History HEENT History: Reports: Allergic Rhinitis, Cataract, Impaired Vision Cardiovascular History: Reports: Heart Failure, Heart Murmur, High Cholesterol, Hypertension, Pulmonary Hypertension, PVD Other Cardiovascular History: aortic stenosis, CHF, cor pulmonae, NSTEMI, aortic stenosis, edema Respiratory History: Reports: Sleep Apnea Other Respiratory History: pulmonary HTN, respiratory failure, hypoxemia, chronic o2 use at 2L per nasal canula during day, 6 L at night Gastrointestinal History: Reports: Diverticulosis, Gastritis, GERD, Hemorrhoids , PUD Other Gastrointestinal History: Stomach ulcer, transaminitis, hemorrhagic gastritis Genitourinary History: Reports: Acute Renal Failure, Urinary Incontinence Other Genitourinary History: acute renal failure [employer] History: Reports: Musculoskeletal History: Reports: Osteoarthritis, RA Other Musculoskeletal History: knee pain Neurological History: Reports: None Psychiatric History: Reports: Anxiety, Depression Endocrine/Metabolic History: Reports: Diabetes, Type II, Obesity/BMI 30+ Hematologic History: Reports: Anemia Immunologic History: Reports: None Oncologic (Cancer) History: Reports: None Dermatologic History: Reports: Cellulitis Other Dermatologic History: diabetic ulceration to left great toe - Past Surgical History Head Surgeries/Procedures: Reports: None HEENT Surgical History: Reports: None, Cataract Surgery Cardiovascular Surgical History: Reports: None Respiratory Surgical History: Reports: None GI Surgical History: Reports: Appendectomy, Cholecystectomy, Colonoscopy, EGD, ERCP Female Surgical History: Reports: Breast Biopsy Male Surgical History: Reports: None Endocrine Surgical History: Reports: None Neurological Surgical History: Reports: None Musculoskeletal Surgical History: Reports: Amputation, Carpal Tunnel, Knee Replacement Other Musculoskeletal Surgeries/Procedures:: Bilateral TKR, right great toe amputation Oncologic Surgical History: Reports: Biopsy of Breast Social & Family History - Family History Family Medical History: Noncontributory - Caffeine Use Caffeine Use: Reports: Coffee, Tea - Living Situation & Occupation Living situation: Reports: , with Family (Daughter) Occupation: Retired ED ROS GENERAL - Review of Systems Review Of Systems: See Below Constitutional: Denies: Fever, Chills HEENT: Reports: Other (facial swelling) Musculoskeletal: Reports: Joint Pain ED EXAM, HEAD INJURY - Physical Exam Exam: See Below Exam Limited By: No Limitations General Appearance: Alert, WD/WN, Obese Head: Other (Ecchymosis and swelling to left periorbital along inferior orbital ridge) Eyes: Bilateral Eye: EOMI, PERRL Nose: Normal Inspection, Normal Mucousa, No Blood Throat/Mouth: Normal Inspection, Normal Lips, Normal Teeth, Normal Gums, Normal Oropharynx, Normal Voice, No Airway Compromise Neck: Non-Tender, Full Range of Motion, Normal Alignment, Normal Inspection Respiratory: No Respiratory Distress, Lungs Clear, Normal Breath Sounds, No Accessory Muscle Use, Chest Non-Tender Cardiovascular: Normal Peripheral Pulses, Regular Rate, Rhythm, No Edema, No Gallop, No JVD, No Murmur, No Rub GI/Abdominal Exam: Normal Bowel Sounds, Soft, Non-Tender, No Organomegaly, No Distention, No Abnormal Bruit, No Mass Back Exam: Full Range of Motion, Normal Inspection, NT Extremities: Other (Ecchymosis to left knee no Decreased range of motion, distal neurovascular intact) Skin: Normal Color, Warm/Dry Course - Vital Signs Last Recorded V/S: Last Vital Signs Temp 98.2 F 09/26/19 13:32 Pulse 85 09/26/19 13:32 Resp 16 09/26/19 13:32 BP 155/59 H 09/26/19 13:32 Pulse Ox 95 09/26/19 13:32 - Re-Assessments/Exams Free Text/Narrative Re-Assessment/Exam: 09/26/19 14:35 Knee x-ray interpreted by me no acute disease CT facial bones "impression: #1 nothing acute is appreciated on CT study of the facial bones." CT had "impression: #1 mild senescent change. #2 nothing acute is appreciated a noncontrasted CT exam." Departure - Departure Time of Disposition: 14:36 Disposition: Home, Self-Care 01 Clinical Impression: Contusion of left knee Qualifiers: Encounter type: initial encounter Qualified Code(s): S80.02XA - Contusion of left knee, initial encounter Head contusion Qualifiers: Encounter type: initial encounter Contusion of head detail: unspecified part of head Qualified Code(s): S00.93XA - Contusion of unspecified part of head, initial encounter - Discharge Information Referrals: Abraham Ramirez MD [Primary Care Provider] - Forms: ED Department Discharge Additional Instructions: Home, rest, Tylenol for pain, ice 20 minutes at a time 3-4 times daily, return as needed worsening condition Sepsis Event Note - Focused Exam Vital Signs: Vital Signs Temp Pulse Resp BP Pulse Ox 09/26/19 13:32 98.2 F 85 16 155/59 H 95 Date Exam was Performed: 09/26/19 Time Exam was Performed: 14:35
--- NOTE | 2019-09-26 14:29 | CT ---
Head CT Technique: Multiple axial sections through the brain were obtained. Intravenous contrast was not utilized. Comparison: No prior intracranial imaging is available. Findings: Ventricles along with basal cisterns and sulci over the convexities are mildly prominent. Minimal diminished density is noted within the periventricular white matter compatible with small vessel ischemic demyelination change. No other abnormal parenchymal densities are seen. No evidence of intracranial hemorrhage. No midline shift or mass effect is seen. Bone window settings were reviewed. Visualized mastoid sinuses and paranasal sinuses show nothing acute. Mild atherosclerotic calcification is seen within the carotid siphon. No acute calvarial abnormality is appreciated. Impression: 1. Mild senescent change. 2. Nothing acute is appreciated on noncontrast head CT exam. Diagnostic code #2 This report was dictated in [place] Standard Time
--- NOTE | 2019-09-26 14:29 | CT ---
CT facial bones Technique: Multiple axial sections through the facial bones were obtained. Reconstructed coronal and sagittal images were reviewed. Comparison: No previous facial bone exam. Findings: Paranasal sinuses are clear. Right and left globes are symmetric. Extraocular muscles and optic nerves are also symmetric. No facial bone fracture is identified. Impression: 1. Nothing acute is appreciated on CT study of the facial bones. Diagnostic code #1 This report was dictated in [place] Standard Time
--- NOTE | 2019-09-26 14:29 | CR ---
Left knee: Four views of the left knee were obtained. Comparison: No prior left knee exam is available. Knee prosthesis is seen. Components are aligned. Vascular calcification is present. Bony irregularity is noted off the superior patella which appears to be old. No fracture, dislocation or other bony abnormality is seen. Impression: 1. Knee prosthesis and vascular calcification. 2. Nothing acute seen on left knee exam. Diagnostic code #2 This report was dictated in [place] Standard Time
== END 2019-09-26 14:55 | disposition home or self-care (01) ==
LOC: JD.ED 13:15
DX: S00.83XA Contusion of other part of head, initial encounter (principal); S80.02XA Contusion of left knee, initial encounter; I11.0 Hypertensive heart disease with heart failure; I50.9 Heart failure, unspecified; E11.9 Type 2 diabetes mellitus without complications; Z88.8 Allergy status to other drugs, medicaments and biological substances; Z88.5 Allergy status to narcotic agent; Z79.899 Other long term (current) drug therapy; Z79.4 Long term (current) use of insulin; Z90.49 Acquired absence of other specified parts of digestive tract; W19.XXXA Unspecified fall, initial encounter
CPT/HCPCS: 70450; 70450-26; 70486; 70486-26; 73564-26-LT; 73564-LT; 99282; 99284-25

== ENCOUNTER 2020-09-02 06:12 | Inpatient (IN) | payer MEDICARE, BC ==
[2020-09-02] MEDS ORDERED: Sodium Chloride 0.9% 10 ML Syringe FLUSH PRN (06:38)
[2020-09-02] MEDS ORDERED: Diltiazem 50 MG/10 ML SDV IVPUSH ONE ×2 (06:40→07:39)
--- NOTE | 2020-09-02 07:06 | EDM.PDOC ---
<Mahendra Zimmerman - Last Filed: 09/02/20 07:09> ED HPI GENERAL MEDICAL PROBLEM - General Chief Complaint: Chest Pain Stated Complaint: chest pain Time Seen by Provider: 09/02/20 06:27 Source of Information: Reports: Patient, RN Notes Reviewed - History of Present Illness INITIAL COMMENTS - FREE TEXT/NARRATIVE: 79 yr old female with onset of mild chest discomfort around 10 PM last evening. She was able to sleep for awhile and than had further discomfort this morning. Chest feels mildly heavily, feels hard to "take a full breath" Has not been ill with cough, fever or chills. Hx Htn, RA, obesity. No prior hx of A fib that she is aware of. Chest Pain Score (Numeric/FACES): 5 - Related Data Allergies Allergy/AdvReac Type Severity Reaction Status Date / Time atorvastatin Allergy Cannot Verified 09/02/20 06:20 Remember fentanyl Allergy Respiratory Verified 09/02/20 06:20 Depression hydrocodone Allergy Respiratory Verified 09/02/20 06:20 Distress oxycodone [Oxycodone] Allergy Respiratory Verified 09/02/20 06:20 Distress tramadol Allergy Respiratory Verified 09/02/20 06:20 Distress Home Meds: Home Meds Magnesium 250 mg PO DAILY 05/07/14 [History] Furosemide [Lasix] 40 mg PO DAILY 03/08/16 [History] predniSONE [Prednisone] 5 mg PO DAILY 03/08/16 [History] Dextrose [Glucose] 4 gm PO DAILY PRN 04/21/17 [History] Fish Oil/Woodman-3 Fatty Acids [Fish Oil 1,000 MG] 1 cap PO DAILY 04/21/17 [History] Insulin Aspart [Novolog] 4 - 15 unit SQ TID 04/21/17 [History] Lisinopril 20 mg PO DAILY 04/21/17 [History] Multivit,Calc,Mins/Iron/Folic [Thera-M] 1 each PO DAILY 04/21/17 [History] Ezetimibe [Zetia] 10 mg PO DAILY 05/09/18 [History] Omeprazole Magnesium [Prilosec Otc] 20 mg PO DAILY 05/09/18 [History] Pravastatin [Pravachol] 40 mg PO DAILY 05/09/18 [History] Ubidecarenone [Coq-10] 1 tab PO DAILY 05/09/18 [History] Leflunomide [Arava] 20 mg PO DAILY 05/30/19 [History] Metoprolol Tartrate [Lopressor] 25 mg PO BID 05/30/19 [History] Triamcinolone Acetonide [Triamcinolone Acetonide 0.1% Crm] 1 dose TOP BID PRN [History] Insulin Glargine,Hum.Rec.Anlog [Basaglar Kwikpen U-100] 25 units SUBCUT BID 09/26/19 [History] Hydroxychloroquine [Plaquenil] 200 mg PO DAILY 09/02/20 [History] Past Medical History HEENT History: Reports: Allergic Rhinitis, Cataract, Impaired Vision Cardiovascular History: Reports: Heart Failure, Heart Murmur, High Cholesterol, Hypertension, Pulmonary Hypertension, PVD Other Cardiovascular History: aortic stenosis, CHF, cor pulmonae, NSTEMI, aortic stenosis, edema Respiratory History: Reports: Sleep Apnea Other Respiratory History: pulmonary HTN, respiratory failure, hypoxemia, chronic o2 use at 2L per nasal canula during day, 6 L at night Gastrointestinal History: Reports: Diverticulosis, Gastritis, GERD, Hemorrhoids, PUD Other Gastrointestinal History: Stomach ulcer, transaminitis, hemorrhagic gastritis Genitourinary History: Reports: Acute Renal Failure, Urinary Incontinence Other Genitourinary History: acute renal failure TAP GRINDER History: Reports: Musculoskeletal History: Reports: Osteoarthritis, RA Other Musculoskeletal History: knee pain Neurological History: Reports: None Psychiatric History: Reports: Anxiety, Depression Endocrine/Metabolic History: Reports: Diabetes, Type II, Obesity/BMI 30+ Hematologic History: Reports: Anemia Immunologic History: Reports: None Oncologic (Cancer) History: Reports: None Dermatologic History: Reports: Cellulitis Other Dermatologic History: diabetic ulceration to left great toe - Past Surgical History HEENT Surgical History: Reports: Cataract Surgery GI Surgical History: Reports: Appendectomy, Cholecystectomy, Colonoscopy, EGD, ERCP Female Surgical History: Reports: Breast Biopsy Musculoskeletal Surgical History: Reports: Amputation, Carpal Tunnel, Knee Replacement Other Musculoskeletal Surgeries/Procedures:: Bilateral TKR, right great toe amputation Oncologic Surgical History: Reports: Biopsy of Breast Social & Family History - Family History Family Medical History: No Pertinent Family History - Tobacco Use Tobacco Use Status *Q: Never Tobacco User - Caffeine Use Caffeine Use: Reports: Coffee, Tea - Recreational Drug Use Recreational Drug Use: No - Living Situation & Occupation Living situation: Reports: , with Family (Daughter) Occupation: Retired ED ROS GENERAL - Review of Systems Review Of Systems: See Below Constitutional: Denies: Fever, Chills, Diaphoresis HEENT: Reports: No Symptoms Respiratory: Reports: Shortness of Breath (mild). Denies: Cough Cardiovascular: Reports: Chest Pain (mild), Palpitations GI/Abdominal: Denies: Abdominal Pain, Nausea, Vomiting Musculoskeletal: Reports: No Symptoms Skin: Reports: No Symptoms Neurological: Reports: No Symptoms ED EXAM, GENERAL - Physical Exam Exam: See Below General Appearance: Alert, No Apparent Distress (at rest) Head: Atraumatic Neck: Supple, Other (No JVD) Respiratory/Chest: No Respiratory Distress, Lungs Clear, Normal Breath Sounds. No: Rales, Rhonchi, Wheezing Cardiovascular: Tachycardia, Irregularly Irregular Extremities: Pedal Edema (mild bilat). No: Leg Pain, Increased Warmth, Redness Neurological: Alert, Oriented, No Motor/Sensory Deficits Skin Exam: Warm, Dry, Normal Color #1 Interpretation EKG Date: 09/02/20 Rhythm: A-Fib [place]: Normal P-Wave: Absent QRS: Normal ST-T: Normal Course - Re-Assessments/Exams Free Text/Narrative Re-Assessment/Exam: 09/02/20 07:09. Rate has come down to the 100 to 118 range diltiazam 20 mg IV. Will start her on a 5 mg drip. It is past change of shift. Will transfer care to Dr Yadav. Departure - Departure Disposition: Admitted As Inpatient 67 Clinical Impression: Atrial fibrillation with rapid ventricular response, Chronic renal insufficiency, stage III (moderate) Congestive heart failure Qualifiers: Heart failure type: diastolic Heart failure chronicity: acute on chronic Qualified Code(s): I50.33 - Acute on chronic diastolic (congestive) heart failure Anemia Qualifiers: Anemia type: due to chronic kidney disease Chronic kidney disease stage 3 subtype: stage 3b (GFR 30-44) Sepsis Event Note (ED) - Evaluation Sepsis Screening Result: No Definite Risk <Sudhir Yadav - Last Filed: 09/02/20 19:54> #2 Interpretation EKG Date: 09/02/20 Time: 13:16 Rhythm: A-Fib (With rate 70 to 150/min) Rate (Beats/Min): 99 [place]: Normal P-Wave: Absent QRS: Other (Nonspecific intraventricular conduction delay.) ST-T: Elevated (Very mild ST segment elevation in leads II, III and aVF of less than 0.5 mm. Diffuse early repolarization pattern) QT: Normal EKG Interpretation Comments: Abnormal ECG #3 Interpretation EKG Date: 09/02/20 Time: 14:20 Rhythm: A-Fib (With rate of 66 to 130/min) Rate (Beats/Min): 87 [place]: Normal P-Wave: Absent QRS: Other (Nonspecific intraventricular conduction delay) ST-T: Elevated (Very minimal nonconsistent elevation of the ST segment in leads II, III and aVF less than in ECG #2.) QT: Normal EKG Interpretation Comments: Abnormal ECG Course - Vital Signs Last Recorded V/S: Last Vital Signs Temp 36.4 C 09/02/20 06:20 Pulse 92 09/02/20 17:28 Resp 22 H 09/02/20 06:20 BP 147/62 H 09/02/20 17:28 Pulse Ox 98 09/02/20 17:28 - Orders/Labs/Meds Orders: Active Orders 24 hr Category Date Time Status EKG 12 Lead [EKG Documentation Completion] [RC] STAT Care 09/02/20 06:38 Active EKG Documentation Completion [RC] STAT Care 09/02/20 12:47 Active EKG Documentation Completion [RC] STAT Care 09/02/20 14:19 Active Oxygen Therapy [RC] ASDIRECTED Care 09/02/20 10:42 Active Peripheral IV Care [RC] . DIRECTED Care 09/02/20 06:38 Active CULTURE URINE [RM] Stat Lab 09/02/20 10:00 Received Diltiazem [Cardizem] 100 mg Med 09/02/20 07:45 Active Sodium Chloride 0.9% [Normal Saline] 100 ml IV ASDIRECTED Sodium Chloride 0.9% [Saline Flush] Med 09/02/20 06:38 Active 10 ml FLUSH ASDIRECTED PRN Peripheral IV Insertion Adult [OM.PC] Stat Oth 09/02/20 06:38 Ordered Medication Orders Acetaminophen (Tylenol) 650 mg PO Q4H PRN PRN Reason: Pain (Mild 1-3)/fever Diltiazem HCl (Dilacor Xr) 240 mg PO DAILY CJ Ezetimibe (Zetia) 10 mg PO DAILY [facility] Enoxaparin Sodium (Lovenox) 30 mg SUBCUT DAILY [facility] Last Admin: 09/02/20 19:08 Dose: 30 mg Documented by: THANH Fish Oil (Fish Oil) 1 gm PO DAILY [facility] Furosemide (Lasix) 40 mg IVPUSH DAILY [facility] Hydroxychloroquine Sulfate (Plaquenil) 200 mg PO DAILY [facility] Diltiazem HCl 100 mg/ Sodium (Chloride) 100 mls @ 10 mls/hr IV ASDIRECTED [facility] Last Infusion: 09/02/20 13:10 Dose: 5 mg/hr, 5 mls/hr Documented by: Infusion: 09/02/20 12:15 Dose: 10 mg/hr, 10 mls/hr Documented by: Infusion: 09/02/20 08:16 Dose: 15 mg/hr, 15 mls/hr Documented by: Admin: 09/02/20 07:52 Dose: 10 mg/hr, 10 mls/hr Documented by: MATY Insulin Glargine (Lantus) 25 unit SUBCUT BID [facility] Insulin Human Lispro (Humalog) 10 unit SUBCUT TIDPC [facility] Last Admin: 09/02/20 19:05 Dose: 10 units Documented by: THANH Insulin Human Lispro (Humalog) 0 unit SUBCUT TIDPC [facility]; Protocol Last Admin: 09/02/20 19:07 Dose: 2 units Documented by: THANH Lisinopril (Prinivil) 20 mg PO DAILY [facility] Magnesium Oxide (Magnesium Oxide) 400 mg PO DAILY [facility] Metoprolol Tartrate (Lopressor) 25 mg PO BID [facility] Non-Formulary Medication (Pravastatin) 40 mg PO DAILY [facility] Non-Formulary Medication (Ubidecarenone) 1 tab PO DAILY [facility] Pantoprazole Sodium (Protonix) 40 mg PO DAILY@0700 [facility] Prednisone (Prednisone) 5 mg PO DAILY [facility] Sodium Chloride (Saline Flush) 10 ml FLUSH ASDIRECTED PRN PRN Reason: Keep Vein Open Last Admin: 09/02/20 06:45 Dose: 10 ml Documented by: NONA Triamcinolone Acetonide (Triamcinolone Acetonide 0.1% Crm) 0 gm TOP BID PRN PRN Reason: skin complications Labs: Laboratory Tests 09/02/20 09/02/20 09/02/20 Range/Units 07:03 07:03 07:03 WBC 6.22 (3.98-10.04) K/mm3 RBC 3.41 L (3.98-5.22) M/mm3 Hgb 10.0 L (11.2-15.7) gm/dl Hct 31.1 L (34.1-44.9) % MCV 91.2 (79.4-94.8) fl MCH 29.3 (25.6-32.2) pg MCHC 32.2 (32.2-35.5) g/dl RDW Std Deviation 47.2 H (36.4-46.3) fL Plt Count 176 L (182-369) K/mm3 MPV 9.9 (9.4-12.3) fl Neut % (Auto) 74.1 H (34.0-71.1) % Lymph % (Auto) 12.1 L (19.3-51.7) % [place] % (Auto) 13.3 H (4.7-12.5) % Eos % (Auto) 0.3 L (0.7-5.8) Baso % (Auto) 0.2 (0.1-1.2) % Neut # (Auto) 4.61 (1.56-6.13) K/mm3 Lymph # (Auto) 0.75 L (1.18-3.74) K/mm3 [place] # (Auto) 0.83 H (0.24-0.36) K/mm3 Eos # (Auto) 0.02 L (0.04-0.36) K/mm3 Baso # (Auto) 0.01 (0.01-0.08) K/mm3 PT 11.0 (9.7-12.0) SECONDS INR 1.03 APTT 24.4 (21.7-31.4) SECONDS Sodium 139 (136-145) mEq/L Potassium 4.5 (3.5-5.1) mEq/L Chloride 104 (98-107) mEq/L Carbon Dioxide 30 (21-32) mEq/L Anion Gap 9.5 (5-15) BUN 51 H (7-18) mg/dL Creatinine 1.5 H (0.55-1.02) mg/dL Est Cr Clr Drug Dosing 22.20 mL/min Estimated GFR (MDRD) 34 (>60) mL/min BUN/Creatinine Ratio 34.0 H (14-18) Glucose 237 H (83-115) mg/dL Calcium 9.3 (8.5-10.1) mg/dL Magnesium (1.8-2.4) mg/dl Total Bilirubin 0.4 (0.2-1.0) mg/dL AST 19 (15-37) U/L ALT 26 (14-59) U/L Alkaline Phosphatase 72 (46-116) U/L CK-MB (CK-2) (0-3.6) ng/ml Troponin I 0.093 H* (0.00-0.056) ng/mL NT-Pro-B Natriuret Pep (0-450) pg/mL Total Protein 6.7 (6.4-8.2) g/dl Albumin 2.8 L (3.4-5.0) g/dl Globulin 3.9 gm/dL Albumin/Globulin Ratio 0.7 L (1-2) Urine Color (Yellow) Urine Appearance (Clear) Urine pH (5.0-8.0) Ur Specific [place] (1.005-1.030) Urine Protein (Negative) Urine Glucose (UA) (Negative) Urine Ketones (Negative) Urine Occult Blood (Negative) Urine Nitrite (Negative) Urine Bilirubin (Negative) Urine Urobilinogen (0.2-1.0) Ur Leukocyte Esterase (Negative) Urine RBC (0-5) /hpf Urine WBC (0-5) /hpf Ur Squamous Epith Cells (0-5) /hpf Urine Bacteria (FEW) /hpf Urine Mucus (FEW) /hpf SARS-CoV-2 RNA (GWENDOLYN) (NEGATIVE) 09/02/20 09/02/20 09/02/20 Range/Units 07:03 07:03 08:15 WBC (3.98-10.04) K/mm3 RBC (3.98-5.22) M/mm3 Hgb (11.2-15.7) gm/dl Hct (34.1-44.9) % MCV (79.4-94.8) fl MCH (25.6-32.2) pg MCHC (32.2-35.5) g/dl RDW Std Deviation (36.4-46.3) fL Plt Count (182-369) K/mm3 MPV (9.4-12.3) fl Neut % (Auto) (34.0-71.1) % Lymph % (Auto) (19.3-51.7) % [place] % (Auto) (4.7-12.5) % Eos % (Auto) (0.7-5.8) Baso % (Auto) (0.1-1.2) % Neut # (Auto) (1.56-6.13) K/mm3 Lymph # (Auto) (1.18-3.74) K/mm3 [place] # (Auto) (0.24-0.36) K/mm3 Eos # (Auto) (0.04-0.36) K/mm3 Baso # (Auto) (0.01-0.08) K/mm3 PT (9.7-12.0) SECONDS INR APTT (21.7-31.4) SECONDS Sodium (136-145) mEq/L Potassium (3.5-5.1) mEq/L Chloride (98-107) mEq/L Carbon Dioxide (21-32) mEq/L Anion Gap (5-15) BUN (7-18) mg/dL Creatinine (0.55-1.02) mg/dL Est Cr Clr Drug Dosing mL/min Estimated GFR (MDRD) (>60) mL/min BUN/Creatinine Ratio (14-18) Glucose (83-115) mg/dL Calcium (8.5-10.1) mg/dL Magnesium 2.1 (1.8-2.4) mg/dl Total Bilirubin (0.2-1.0) mg/dL AST (15-37) U/L ALT (14-59) U/L Alkaline Phosphatase (46-116) U/L CK-MB (CK-2) 1.9 (0-3.6) ng/ml Troponin I (0.00-0.056) ng/mL NT-Pro-B Natriuret Pep 8041 H (0-450) pg/mL Total Protein (6.4-8.2) g/dl Albumin (3.4-5.0) g/dl Globulin gm/dL Albumin/Globulin Ratio (1-2) Urine Color (Yellow) Urine Appearance (Clear) Urine pH (5.0-8.0) Ur Specific [place] (1.005-1.030) Urine Protein (Negative) Urine Glucose (UA) (Negative) Urine Ketones (Negative) Urine Occult Blood (Negative) Urine Nitrite (Negative) Urine Bilirubin (Negative) Urine Urobilinogen (0.2-1.0) Ur Leukocyte Esterase (Negative) Urine RBC (0-5) /hpf Urine WBC (0-5) /hpf Ur Squamous Epith Cells (0-5) /hpf Urine Bacteria (FEW) /hpf Urine Mucus (FEW) /hpf SARS-CoV-2 RNA (GWENDOLYN) Negative (NEGATIVE) 09/02/20 09/02/20 09/02/20 Range/Units 10:09 12:24 14:55 WBC (3.98-10.04) K/mm3 RBC (3.98-5.22) M/mm3 Hgb (11.2-15.7) gm/dl Hct (34.1-44.9) % MCV (79.4-94.8) fl MCH (25.6-32.2) pg MCHC (32.2-35.5) g/dl RDW Std Deviation (36.4-46.3) fL Plt Count (182-369) K/mm3 MPV (9.4-12.3) fl Neut % (Auto) (34.0-71.1) % Lymph % (Auto) (19.3-51.7) % [place] % (Auto) (4.7-12.5) % Eos % (Auto) (0.7-5.8) Baso % (Auto) (0.1-1.2) % Neut # (Auto) (1.56-6.13) K/mm3 Lymph # (Auto) (1.18-3.74) K/mm3 [place] # (Auto) (0.24-0.36) K/mm3 Eos # (Auto) (0.04-0.36) K/mm3 Baso # (Auto) (0.01-0.08) K/mm3 PT (9.7-12.0) SECONDS INR APTT (21.7-31.4) SECONDS Sodium (136-145) mEq/L Potassium (3.5-5.1) mEq/L Chloride (98-107) mEq/L Carbon Dioxide (21-32) mEq/L Anion Gap (5-15) BUN (7-18) mg/dL Creatinine (0.55-1.02) mg/dL Est Cr Clr Drug Dosing mL/min Estimated GFR (MDRD) (>60) mL/min BUN/Creatinine Ratio (14-18) Glucose (83-115) mg/dL Calcium (8.5-10.1) mg/dL Magnesium (1.8-2.4) mg/dl Total Bilirubin (0.2-1.0) mg/dL AST (15-37) U/L ALT (14-59) U/L Alkaline Phosphatase (46-116) U/L CK-MB (CK-2) 1.8 (0-3.6) ng/ml Troponin I 0.136 H* 0.142 H* (0.00-0.056) ng/mL NT-Pro-B Natriuret Pep (0-450) pg/mL Total Protein (6.4-8.2) g/dl Albumin (3.4-5.0) g/dl Globulin gm/dL Albumin/Globulin Ratio (1-2) Urine Color Yellow (Yellow) Urine Appearance Clear (Clear) Urine pH 5.5 (5.0-8.0) Ur Specific [place] > or = 1.030 (1.005-1.030) Urine Protein 2+ H (Negative) Urine Glucose (UA) Negative (Negative) Urine Ketones Negative (Negative) Urine Occult Blood Negative (Negative) Urine Nitrite Negative (Negative) Urine Bilirubin Negative (Negative) Urine Urobilinogen 0.2 (0.2-1.0) Ur Leukocyte Esterase Trace H (Negative) Urine RBC 0-5 (0-5) /hpf Urine WBC 10-20 H (0-5) /hpf Ur Squamous Epith Cells 5-10 H (0-5) /hpf Urine Bacteria Few (FEW) /hpf Urine Mucus Few (FEW) /hpf SARS-CoV-2 RNA (GWENDOLYN) (NEGATIVE) Meds: Medications Generic Name Dose Route Start Last Admin Trade Name Freq PRN Reason Stop Dose Admin Acetaminophen 650 mg 09/02/20 17:29 Tylenol PO Q4H PRN Pain (Mild 1-3)/fever Diltiazem HCl 240 mg 09/03/20 09:00 Dilacor Xr PO DAILY CJ Ezetimibe 10 mg 09/03/20 09:00 Zetia PO DAILY [facility] Enoxaparin Sodium 30 mg 09/02/20 17:45 09/02/20 19:08 Lovenox SUBCUT 30 mg DAILY [facility] Administration Fish Oil 1 gm 09/03/20 09:00 Fish Oil PO DAILY [facility] Furosemide 40 mg 09/03/20 09:00 Lasix IVPUSH DAILY [facility] Hydroxychloroquine Sulfate 200 mg 09/03/20 09:00 Plaquenil PO DAILY [facility] Diltiazem HCl 100 mg/ Sodium 100 mls @ 10 mls/hr 09/02/20 07:45 09/02/20 13:10 Chloride IV 5 mg/hr ASDIRECTED [facility] 5 mls/hr Infusion 10 MG/HR Insulin Glargine 25 unit 09/02/20 21:00 Lantus SUBCUT BID [facility] Insulin Human Lispro 10 unit 09/02/20 19:00 09/02/20 19:05 Humalog SUBCUT 10 units TIDPC [facility] Administration Insulin Human Lispro 0 unit 09/02/20 19:00 09/02/20 19:07 Humalog SUBCUT 2 units TIDPC [facility] Administration Protocol Lisinopril 20 mg 09/03/20 09:00 Prinivil PO DAILY [facility] Magnesium Oxide 400 mg 09/03/20 09:00 Magnesium Oxide PO DAILY [facility] Metoprolol Tartrate 25 mg 09/02/20 21:00 Lopressor PO BID [facility] Non-Formulary Medication 40 mg 09/03/20 09:00 Pravastatin PO DAILY [facility] Non-Formulary Medication 1 tab 09/03/20 09:00 Ubidecarenone PO DAILY [facility] Pantoprazole Sodium 40 mg 09/03/20 07:00 Protonix PO DAILY@0700 [facility] Prednisone 5 mg 09/03/20 09:00 Prednisone PO DAILY [facility] Sodium Chloride 10 ml 09/02/20 06:38 09/02/20 06:45 Saline Flush FLUSH 10 ml ASDIRECTED PRN Administration Keep Vein Open Triamcinolone Acetonide 0 gm 09/02/20 18:30 Triamcinolone Acetonide 0.1% Crm TOP BID PRN skin complications Discontinued Medications Generic Name Dose Route Start Last Admin Trade Name Freq PRN Reason Stop Dose Admin Diltiazem HCl 20 mg 09/02/20 06:40 09/02/20 06:44 Cardizem IVPUSH 09/02/20 06:41 20 mg ONETIME ONE Administration Diltiazem HCl 10 mg 09/02/20 07:39 09/02/20 07:46 Cardizem IVPUSH 09/02/20 07:40 10 mg ONETIME ONE Administration Diltiazem HCl 180 mg 09/02/20 12:02 09/02/20 12:48 Cardizem Cd PO 09/02/20 12:03 180 mg ONETIME ONE Administration Furosemide 60 mg 09/02/20 12:08 09/02/20 12:49 Lasix IVPUSH 09/02/20 12:09 60 mg NOW ONE Administration Ibutilide Fumarate 1 mg/ 60 mls @ 300 mls/hr 09/02/20 09:23 09/02/20 18:15 Sodium Chloride IV 09/02/20 09:34 Not Given ONETIME ONE Ibutilide Fumarate 1 mg/ 60 mls @ 300 mls/hr 09/02/20 09:45 09/02/20 10:44 Sodium Chloride IV 09/02/20 09:56 300 mls/hr ONETIME ONE Administration Ibutilide Fumarate 1 mg/ 60 mls @ 300 mls/hr 09/02/20 10:30 09/02/20 18:35 Sodium Chloride IV 09/02/20 10:41 Not Given ONETIME ONE Insulin Glargine 25 unit 09/02/20 12:04 09/02/20 12:52 Lantus SUBCUT 09/02/20 12:05 25 units ONETIME ONE Administration Lisinopril 20 mg 09/02/20 12:05 09/02/20 12:48 Prinivil PO 09/02/20 12:06 20 mg ONETIME ONE Administration Metoprolol Tartrate 25 mg 09/02/20 12:07 09/02/20 12:46 Lopressor PO 09/02/20 12:08 25 mg ONETIME ONE Administration Non-Formulary Medication 4 - 15 unit 09/02/20 21:00 Insulin Aspart SQ TID CJ Prednisone 5 mg 09/02/20 12:05 09/02/20 12:49 Prednisone PO 09/02/20 12:06 5 mg NOW STA Administration - Re-Assessments/Exams Free Text/Narrative Re-Assessment/Exam: 09/02/20 07:30: Care of this patient has been assumed from Dr. Zimmerman as it is change of shift. Patient presented to the ED earlier this morning in new onset atrial fibrillation with rapid ventricular response up into the 140s. Patient had 20 mg of Cardizem given IV bolus x1. Heart rate did come down to near 100 for period of time but is currently back into the 120s. Blood pressure is 152/78. Plan she will receive 10 more milligrams of Cardizem IV bolus and then start a drip at 10 mg/h. Further labs including a serum magnesium BNP and coags ordered as well as a chest x-ray. 09/02/20 08:50 chest x-ray is unremarkable with no consolidation. No pleural effusion no pneumothorax mild cardiomegaly. Old fracture distal right clavicle appreciated degenerative arthritic changes appreciated both shoulders and throat portions of the thoracic spine. 09/02/20 08:58 White blood cell count is 6.22. Differential is 74.1% neutrophils on auto differential. Hemoglobin is slightly low at 10.0 with hematocrit of 31.1. MCV is normal at 91.2. Platelet count normal 176,000. PT is 11.0 with an INR of 1.03 PTT is 24.4 magnesium is 2.1 CK-MB fraction 1.9. 09/02/20 09:25 patient remains in atrial fibrillation with rate controlled around 106. Pressure is stable at 139 100. Plan we will try Corvert 1 mg intravenously over the next 15 minutes with diltiazem drip discontinued during that timeframe to see if we can convert her back to sinus rhythm with medication. 09/02/20 10:13 patient has completed his first dose of Corvert 1 mg 5 minutes ago. She remains in atrial fibrillation in the 1 teens. Cardizem drip has been restarted. If she does not convert in the next 20 minutes or so she will receive a second dose of Corvert 1 mg IV over 15 minutes. 09/02/20 10:25: She did not convert with the first dose of Corvert she will now receive a second dose of Corvert 1 mg IV over 15 minutes with the Cardizem drip discontinued well receiving the Corvert. Rate is rate around 100 to 109/min. 09/02/20 12:02 Total white count is listed at 6.22. The differential is 74.1% neutrophils. Hemoglobin is low at 10.0 with a hematocrit of 31.1 platelet count 176,000 slightly on the low side PT is 11.0 with an INR of 1.03 and PTT of 24.4. Sodium 139 with a potassium of 4.5 chloride 104 with a bicarb of 30. An ion gap is 9.5 BUN is elevated at 51 with a creatinine of 1.5 suggesting volume depletion but in fact the patient is volume overloaded. Estimated GFR is 34 high stage IIIb chronic renal insufficiency glucose elevated at 237 patient is known to be diabetic calcium is 9.3 magnesium 2.1. Liver function normal CK-MB fraction was 1.9 troponin I is 0.093 and will be rechecked at this time. BNP is markedly elevated at 8041. Total protein is 6.7 albumin fraction 2.8. COVID- 19 screen is negative. The urinalysis shows 2+ proteinuria trace of leukocyte esterase with 10-20 WBCs per high-power field and a few bacteria. Patient has no symptoms of urinary tract infection. A culture will be ordered. 09/02/20 12:08 patient did not convert back to sinus rythm with Corvert IV x 2 doses. He remains controlled around 105 on the Cardizem drip at 10 mg/h. The plan will be to wean her off the Cardizem drip and start on oral Cardizem 180 mg CD preparation now. However she is going to need admission to the hospital and there are no ICU beds available when she is off the Cardizem drip she should be available to go to a normal room. She is in significant congestive heart failure and was given Lasix 60 mg IV now. She also be given her first dose of insulin glargine which usually takes in the morning in combination with her prednisone 5 mg and metoprolol tartrate 25 mg p.o. and lisinopril 20 mg p.o. for blood pressure control. She will have to be started on oral anticoagulation as well. I will discuss case with on-call hospitalist Dr. Smith. 09/02/20 12:16 discussed the case with Dr. Smith and he will see the patient in the emergency room. 09/02/20 13:24 ECG #2 has been completed. There was a delay in obtaining this. It reveals atrial fibrillation with a rate of 70 to 150 bpm. There is initial poor R wave progression. There is no evidence of mild ST segment elevation in leads II, III and aVF suggesting inferior wall ischemia has occurred. She has no chest pain associated with this. Second troponin done is elevated at 0.136. I believe it was 0.93 when she was first seen this morning 09/02/20 15:57 third set of cardiac markers reveal the CK-MB fraction to have gone down from 1.9-1.8 and the troponin went up slightly from 0.136-0.142. I therefore discussed the case with on-call drum sander setter at [facility] in [place] Dr. Johnston and he agrees that this is most likely a stress response and does not represent a true myocardial infarction. He suggest that we diurese her and clearing up her congestive heart failure and continue atrial fibrillation at control with Cardizem. He suggest that she have an echocardiogram before discharge from the hospital. I have subsequently discussed the case with Dr. Smith on-call hospitalist and the patient will be admitted to the med surgery floor at this time. Departure - Departure Time of Disposition: 17:20 Reason for Transfer *Q: Other Condition: Fair Sepsis Event Note (ED) - Focused Exam Vital Signs: Vital Signs Pulse BP 09/02/20 12:48 148/100 H 09/02/20 12:46 110 H 148/108 H - My Orders Last 24 Hours: My Active Orders 09/02/20 07:45 Diltiazem [Cardizem] 100 mg Sodium Chloride 0.9% [Normal Saline] 100 ml IV ASDIRECTED 09/02/20 10:00 CULTURE URINE [RM] Stat 09/02/20 10:42 Oxygen Therapy [RC] ASDIRECTED 09/02/20 12:47 EKG Documentation Completion [RC] STAT 09/02/20 14:19 EKG Documentation Completion [RC] STAT - Assessment/Plan Last 24 Hours: My Active Orders 09/02/20 07:45 Diltiazem [Cardizem] 100 mg Sodium Chloride 0.9% [Normal Saline] 100 ml IV ASDIRECTED 09/02/20 10:00 CULTURE URINE [RM] Stat 09/02/20 10:42 Oxygen Therapy [RC] ASDIRECTED 09/02/20 12:47 EKG Documentation Completion [RC] STAT 09/02/20 14:19 EKG Documentation Completion [RC] STAT
[2020-09-02] MEDS ORDERED: Diltiazem 100 MG in Sodium Chloride 0.9% 100 ML IV SCH (07:45)
--- NOTE | 2020-09-02 08:47 | CR ---
PROCEDURE INFORMATION: Exam: XR Chest, 1 View Exam date and time: 09/02/2020 7:26 AM Age: 79 years old Clinical indication: Abnormal findings; Abnormal EKG; Other: Atrial fibrillation; Additional info: New onset of atrial fibrillation TECHNIQUE: Imaging protocol: XR of the chest Views: 1 view. COMPARISON: CT Ang Chest 12/05/2017 8:37 PM FINDINGS: Lungs: Unremarkable. No consolidation. Pleural space: Unremarkable. No pleural effusion. No pneumothorax. Heart/Mediastinum: Cardiomegaly. Bones/joints: Old fracture distal right clavicle. Degenerative arthritis shoulders and spine. IMPRESSION: No acute findings. Thank you for allowing us to participate in the care of your patient. Dictated and Authenticated by: Mary Rush MD 09/02/2020 9:34 AM Central Time ([place] & [place]) [facility]ENTER[facility]al
[2020-09-02] MEDS ORDERED: Diltiazem 180 MG Cap.CD PO ONE (12:02)
[2020-09-02] MEDS ORDERED: Insulin Glarg,Human.Rec.Analog 100 Unit/ML SUBCUT ONE (12:04)
[2020-09-02] MEDS ORDERED: predniSONE 5 MG Tab PO STA (12:05)
[2020-09-02] MEDS ORDERED: Lisinopril 20 MG Tab PO ONE (12:05)
[2020-09-02] MEDS ORDERED: Metoprolol Tartrate 25 MG Tab PO ONE (12:07)
[2020-09-02] MEDS ORDERED: Furosemide 40 MG/4 ML VIAL IVPUSH ONE (12:08)
--- NOTE | 2020-09-02 17:19 | PCM.HP.2 ---
H&P History of Present Illness - General Date of Service: 09/02/20 Admit Problem/Dx: Admission Diagnosis/Problem Admission Diagnosis/Problem Atrial fibrillation with rapid ventricular response Source of Information: Patient, EMS, EMS Notes Reviewed, Provider, RN History Limitations: Reports: No Limitations - History of Present Illness Initial Comments - Free Text/Narative: 79 year old female admitted with atypical left shoulder and chest and increasing sob. ? new onset afib seen in e.r. this am and failed to convert with corteg. placed on cardizem drip and rate decreased to 100 form 140-150. chf seen and heard on exam and given lasix with good diuresis. chf chronic with acute and ami ruled out although mild increase in trop noted . she has been hemodynamically stable on o2 2liters and she is on chronic o.2 at home. pmh diabetes /ra leilani obesity pulmonary hypertension? initial ekg shows non spec st changes and second ekg mild inf. st elevation. 3rd ekg unchanged she has no chest pain since admission/ just sob and nosymptoms or exposure to covid she is aware of. p.e. see physical assess: 1)afib with rvr starting 18 hours ago by hx but with hx of chf and known risk factors including age/ra/obesity/leilani/dm. failed conversion and will need echo and further eval for anticoagulation. recomended a as chadsvasc2 risk 3. 2)previous chf. bnp over 8000/ ami ruled out by exam and features with cardiology involved and agreeing with diuresis/ repeat echo ordered. 3)diabetes 2 control unknown. 4)leilani and obesity 5)chronic steriod use for ra. 6)chronic lung disease ? pulm fibrosis or other with hx of steriod/diuretic use and chronic hypoxia on o2 2liter continuous. plan admit cardizem and lasix / start arb. see if she converts but unlikely. discuss anticoagulation further/ favor starting in light of failed attempt at chem. cardioversion. treat comorbidities. apnea control diabetes monitor bnp. and creatinine. Onset of Symptoms: Reports: Today Chest Pain Score (Numeric/FACES): 5 - Related Data Allergies/Adverse Reactions: Allergies Allergy/AdvReac Type Severity Reaction Status Date / Time atorvastatin Allergy Cannot Verified 09/02/20 06:20 Remember fentanyl Allergy Respiratory Verified 09/02/20 06:20 Depression hydrocodone Allergy Respiratory Verified 09/02/20 06:20 Distress oxycodone [Oxycodone] Allergy Respiratory Verified 09/02/20 06:20 Distress tramadol Allergy Respiratory Verified 09/02/20 06:20 Distress Home Medications: Home Meds Magnesium 250 mg PO DAILY 05/07/14 [History] Furosemide [Lasix] 40 mg PO DAILY 03/08/16 [History] predniSONE [Prednisone] 5 mg PO DAILY 03/08/16 [History] Dextrose [Glucose] 4 gm PO DAILY PRN 04/21/17 [History] Fish Oil/[place]-3 Fatty Acids [Fish Oil 1,000 MG] 1 cap PO DAILY 04/21/17 [History] Insulin Aspart [Novolog] 4 - 15 unit SQ TID 04/21/17 [History] Lisinopril 20 mg PO DAILY 04/21/17 [History] Multivit,Calc,Mins/Iron/Folic [Thera-M] 1 each PO DAILY 04/21/17 [History] Ezetimibe [Zetia] 10 mg PO DAILY 05/09/18 [History] Omeprazole Magnesium [Prilosec Otc] 20 mg PO DAILY 05/09/18 [History] Pravastatin [Pravachol] 40 mg PO DAILY 05/09/18 [History] Ubidecarenone [Coq-10] 1 tab PO DAILY 05/09/18 [History] Leflunomide [Arava] 20 mg PO DAILY 05/30/19 [History] Metoprolol Tartrate [Lopressor] 25 mg PO BID 05/30/19 [History] Triamcinolone Acetonide [Triamcinolone Acetonide 0.1% Crm] 1 dose TOP BID PRN 0 05/30/19 [History] Insulin Glargine,Hum.Rec.Anlog [Basaglar Kwikpen U-100] 25 units SUBCUT BID 09/26/19 [History] Hydroxychloroquine [Plaquenil] 200 mg PO DAILY 09/02/20 [History] Past Medical History HEENT History: Reports: Allergic Rhinitis, Cataract, Impaired Vision Cardiovascular History: Reports: Heart Failure, Heart Murmur, High Cholesterol, Hypertension, Pulmonary Hypertension, PVD Other Cardiovascular History: aortic stenosis, CHF, cor pulmonae, NSTEMI, aortic stenosis, edema Respiratory History: Reports: Sleep Apnea Other Respiratory History: pulmonary HTN, respiratory failure, hypoxemia, chronic o2 use at 2L per nasal canula during day, 6 L at night Gastrointestinal History: Reports: Diverticulosis, Gastritis, GERD, Hemorrhoids, PUD Other Gastrointestinal History: Stomach ulcer, transaminitis, hemorrhagic gastritis Genitourinary History: Reports: Acute Renal Failure, Urinary Incontinence Other Genitourinary History: acute renal failure 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: Musculoskeletal History: Reports: Osteoarthritis, RA Other Musculoskeletal History: knee pain Neurological History: Reports: None Psychiatric History: Reports: Anxiety, Depression Endocrine/Metabolic History: Reports: Diabetes, Type II, Obesity/BMI 30+ Hematologic History: Reports: Anemia Immunologic History: Reports: None Oncologic (Cancer) History: Reports: None Dermatologic History: Reports: Cellulitis Other Dermatologic History: diabetic ulceration to left great toe - Past Surgical History HEENT Surgical History: Reports: Cataract Surgery GI Surgical History: Reports: Appendectomy, Cholecystectomy, Colonoscopy, EGD, ERCP Female Surgical History: Reports: Breast Biopsy Musculoskeletal Surgical History: Reports: Amputation, Carpal Tunnel, Knee Replacement Other Musculoskeletal Surgeries/Procedures:: Bilateral TKR, right great toe amp utation Oncologic Surgical History: Reports: Biopsy of Breast Social & Family History - Family History Family Medical History: No Pertinent Family History - Tobacco Use Tobacco Use Status *Q: Never Tobacco User - Caffeine Use Caffeine Use: Reports: Coffee, Tea - Recreational Drug Use Recreational Drug Use: No - Living Situation & Occupation Living situation: Reports: , with Family (Daughter) Occupation: Retired H&P Review of Systems - Review of Systems: Review Of Systems: See Below General: Reports: No Symptoms HEENT: Reports: No Symptoms Pulmonary: Reports: Shortness of Breath Cardiovascular: Reports: Chest Pain, Palpitations, Dyspnea on Exertion, Orthopnea, Edema Gastrointestinal: Reports: No Symptoms Genitourinary: Reports: No Symptoms Musculoskeletal: Reports: Shoulder Pain, Arm Pain, Hand Pain, Joint Pain Skin: Reports: No Symptoms Psychiatric: Reports: No Symptoms Neurological: Reports: No Symptoms Hematologic/Lymphatic: Reports: Anemia, Easy Bruising Immunologic: Reports: No Symptoms Exam - Exam Exam: See Below - Vital Signs Vital Signs: Last Vital Signs Temp 36.4 C 09/02/20 06:20 Pulse 110 H 09/02/20 12:46 Resp 22 H 09/02/20 06:20 BP 148/100 H 09/02/20 12:48 Pulse Ox 94 L 09/02/20 06:20 Weight: 126.099 kg - Exam Quality Assessment: Supplemental Oxygen General: Alert, Oriented, 4 HEENT: PERRLA, Hearing Intact, Mucosa Moist & [place], Nares Patent, Normal Nasal Septum, Posterior Pharynx Clear, Conjunctiva Clear, EOMI, EACs Clear, TMs Clear Neck: Supple, Trachea Midline, 2 Lungs: Clear to Auscultation, Normal Respiratory Effort, Decreased Breath Sounds Cardiovascular: Irregular Rhythm GI/Abdominal Exam: Normal Bowel Sounds, Soft, Non-Tender, No Organomegaly, No Distention, No Abnormal Bruit, No Mass, Pelvis Stable (Female) Exam: Normal External Exam, Normal Speculum Exam, Normal Bimanual Exam Rectal (Female) Exam: Normal Exam, Normal Rectal Tone Back Exam: Normal Inspection, Full Range of Motion, NT Extremities: Normal Inspection, Normal Range of Motion, Non-Tender, No Pedal Edema, Normal Capillary Refill Skin: Warm, Dry, Intact Neurological: Cranial Nerves Intact, Reflexes Equal Bilateral Neuro Extensive - Mental Status: Alert, Oriented x3, Normal Mood/Affect, Normal Cognition Neuro Extensive - Motor, Sensory, Reflexes: CN II-XII Intact, Normal Gait, Normal Reflexes Psychiatric: Alert, Normal Affect, Normal Mood - Patient Data Lab Results Last 24 hrs: Laboratory Results - last 24 hr 09/02/20 09/02/20 09/02/20 Range/Units 07:03 07:03 07:03 WBC 6.22 (3.98-10.04) K/mm3 RBC 3.41 L (3.98-5.22) M/mm3 Hgb 10.0 L (11.2-15.7) gm/dl Hct 31.1 L (34.1-44.9) % MCV 91.2 (79.4-94.8) fl MCH 29.3 (25.6-32.2) pg MCHC 32.2 (32.2-35.5) g/dl RDW Std Deviation 47.2 H (36.4-46.3) fL Plt Count 176 L (182-369) K/mm3 MPV 9.9 (9.4-12.3) fl Neut % (Auto) 74.1 H (34.0-71.1) % Lymph % (Auto) 12.1 L (19.3-51.7) % [place] % (Auto) 13.3 H (4.7-12.5) % Eos % (Auto) 0.3 L (0.7-5.8) Baso % (Auto) 0.2 (0.1-1.2) % Neut # (Auto) 4.61 (1.56-6.13) K/mm3 Lymph # (Auto) 0.75 L (1.18-3.74) K/mm3 [place] # (Auto) 0.83 H (0.24-0.36) K/mm3 Eos # (Auto) 0.02 L (0.04-0.36) K/mm3 Baso # (Auto) 0.01 (0.01-0.08) K/mm3 PT 11.0 (9.7-12.0) SECONDS INR 1.03 APTT 24.4 (21.7-31.4) SECONDS Sodium 139 (136-145) mEq/L Potassium 4.5 (3.5-5.1) mEq/L Chloride 104 (98-107) mEq/L Carbon Dioxide 30 (21-32) mEq/L Anion Gap 9.5 (5-15) BUN 51 H (7-18) mg/dL Creatinine 1.5 H (0.55-1.02) mg/dL Est Cr Clr Drug Dosing 22.20 mL/min Estimated GFR (MDRD) 34 (>60) mL/min BUN/Creatinine Ratio 34.0 H (14-18) Glucose 237 H (83-115) mg/dL Calcium 9.3 (8.5-10.1) mg/dL Magnesium (1.8-2.4) mg/dl Total Bilirubin 0.4 (0.2-1.0) mg/dL AST 19 (15-37) U/L ALT 26 (14-59) U/L Alkaline Phosphatase 72 (46-116) U/L CK-MB (CK-2) (0-3.6) ng/ml Troponin I 0.093 H* (0.00-0.056) ng/mL NT-Pro-B Natriuret Pep (0-450) pg/mL Total Protein 6.7 (6.4-8.2) g/dl Albumin 2.8 L (3.4-5.0) g/dl Globulin 3.9 gm/dL Albumin/Globulin Ratio 0.7 L (1-2) Urine Color (Yellow) Urine Appearance (Clear) Urine pH (5.0-8.0) Ur Specific [place] (1.005-1.030) Urine Protein (Negative) Urine Glucose (UA) (Negative) Urine Ketones (Negative) Urine Occult Blood (Negative) Urine Nitrite (Negative) Urine Bilirubin (Negative) Urine Urobilinogen (0.2-1.0) Ur Leukocyte Esterase (Negative) Urine RBC (0-5) /hpf Urine WBC (0-5) /hpf Ur Squamous Epith Cells (0-5) /hpf Urine Bacteria (FEW) /hpf Urine Mucus (FEW) /hpf SARS-CoV-2 RNA (GWENDOLYN) (NEGATIVE) 09/02/20 09/02/20 09/02/20 Range/Units 07:03 07:03 08:15 WBC (3.98-10.04) K/mm3 RBC (3.98-5.22) M/mm3 Hgb (11.2-15.7) gm/dl Hct (34.1-44.9) % MCV (79.4-94.8) fl MCH (25.6-32.2) pg MCHC (32.2-35.5) g/dl RDW Std Deviation (36.4-46.3) fL Plt Count (182-369) K/mm3 MPV (9.4-12.3) fl Neut % (Auto) (34.0-71.1) % Lymph % (Auto) (19.3-51.7) % [place] % (Auto) (4.7-12.5) % Eos % (Auto) (0.7-5.8) Baso % (Auto) (0.1-1.2) % Neut # (Auto) (1.56-6.13) K/mm3 Lymph # (Auto) (1.18-3.74) K/mm3 [place] # (Auto) (0.24-0.36) K/mm3 Eos # (Auto) (0.04-0.36) K/mm3 Baso # (Auto) (0.01-0.08) K/mm3 PT (9.7-12.0) SECONDS INR APTT (21.7-31.4) SECONDS Sodium (136-145) mEq/L Potassium (3.5-5.1) mEq/L Chloride (98-107) mEq/L Carbon Dioxide (21-32) mEq/L Anion Gap (5-15) BUN (7-18) mg/dL Creatinine (0.55-1.02) mg/dL Est Cr Clr Drug Dosing mL/min Estimated GFR (MDRD) (>60) mL/min BUN/Creatinine Ratio (14-18) Glucose (83-115) mg/dL Calcium (8.5-10.1) mg/dL Magnesium 2.1 (1.8-2.4) mg/dl Total Bilirubin (0.2-1.0) mg/dL AST (15-37) U/L ALT (14-59) U/L Alkaline Phosphatase (46-116) U/L CK-MB (CK-2) 1.9 (0-3.6) ng/ml Troponin I (0.00-0.056) ng/mL NT-Pro-B Natriuret Pep 8041 H (0-450) pg/mL Total Protein (6.4-8.2) g/dl Albumin (3.4-5.0) g/dl Globulin gm/dL Albumin/Globulin Ratio (1-2) Urine Color (Yellow) Urine Appearance (Clear) Urine pH (5.0-8.0) Ur Specific [place] (1.005-1.030) Urine Protein (Negative) Urine Glucose (UA) (Negative) Urine Ketones (Negative) Urine Occult Blood (Negative) Urine Nitrite (Negative) Urine Bilirubin (Negative) Urine Urobilinogen (0.2-1.0) Ur Leukocyte Esterase (Negative) Urine RBC (0-5) /hpf Urine WBC (0-5) /hpf Ur Squamous Epith Cells (0-5) /hpf Urine Bacteria (FEW) /hpf Urine Mucus (FEW) /hpf SARS-CoV-2 RNA (GWENDOLYN) Negative (NEGATIVE) 09/02/20 09/02/20 09/02/20 Range/Units 10:09 12:24 14:55 WBC (3.98-10.04) K/mm3 RBC (3.98-5.22) M/mm3 Hgb (11.2-15.7) gm/dl Hct (34.1-44.9) % MCV (79.4-94.8) fl MCH (25.6-32.2) pg MCHC (32.2-35.5) g/dl RDW Std Deviation (36.4-46.3) fL Plt Count (182-369) K/mm3 MPV (9.4-12.3) fl Neut % (Auto) (34.0-71.1) % Lymph % (Auto) (19.3-51.7) % [place] % (Auto) (4.7-12.5) % Eos % (Auto) (0.7-5.8) Baso % (Auto) (0.1-1.2) % Neut # (Auto) (1.56-6.13) K/mm3 Lymph # (Auto) (1.18-3.74) K/mm3 [place] # (Auto) (0.24-0.36) K/mm3 Eos # (Auto) (0.04-0.36) K/mm3 Baso # (Auto) (0.01-0.08) K/mm3 PT (9.7-12.0) SECONDS INR APTT (21.7-31.4) SECONDS Sodium (136-145) mEq/L Potassium (3.5-5.1) mEq/L Chloride (98-107) mEq/L Carbon Dioxide (21-32) mEq/L Anion Gap (5-15) BUN (7-18) mg/dL Creatinine (0.55-1.02) mg/dL Est Cr Clr Drug Dosing mL/min Estimated GFR (MDRD) (>60) mL/min BUN/Creatinine Ratio (14-18) Glucose (83-115) mg/dL Calcium (8.5-10.1) mg/dL Magnesium (1.8-2.4) mg/dl Total Bilirubin (0.2-1.0) mg/dL AST (15-37) U/L ALT (14-59) U/L Alkaline Phosphatase (46-116) U/L CK-MB (CK-2) 1.8 (0-3.6) ng/ml Troponin I 0.136 H* 0.142 H* (0.00-0.056) ng/mL NT-Pro-B Natriuret Pep (0-450) pg/mL Total Protein (6.4-8.2) g/dl Albumin (3.4-5.0) g/dl Globulin gm/dL Albumin/Globulin Ratio (1-2) Urine Color Yellow (Yellow) Urine Appearance Clear (Clear) Urine pH 5.5 (5.0-8.0) Ur Specific [place] > or = 1.030 (1.005-1.030) Urine Protein 2+ H (Negative) Urine Glucose (UA) Negative (Negative) Urine Ketones Negative (Negative) Urine Occult Blood Negative (Negative) Urine Nitrite Negative (Negative) Urine Bilirubin Negative (Negative) Urine Urobilinogen 0.2 (0.2-1.0) Ur Leukocyte Esterase Trace H (Negative) Urine RBC 0-5 (0-5) /hpf Urine WBC 10-20 H (0-5) /hpf Ur Squamous Epith Cells 5-10 H (0-5) /hpf Urine Bacteria Few (FEW) /hpf Urine Mucus Few (FEW) /hpf SARS-CoV-2 RNA (GWENDOLYN) (NEGATIVE) Result Diagrams: 09/02/20 07:03 09/02/20 07:03 Sepsis Event Note - Evaluation Sepsis Screening Result: No Definite Risk - Focused Exam Vital Signs: Vital Signs Temp Pulse Pulse Resp BP BP Pulse Ox 09/02/20 12:48 148/100 H 09/02/20 12:46 110 H 148/108 H 09/02/20 06:20 36.4 C 151 H 22 H 164/97 H 94 L - Problem List (1) LEILANI on CPAP SNOMED Code(s): 07199555 ICD Code: G47.33 - OBSTRUCTIVE SLEEP APNEA (ADULT) (PEDIATRIC); Z99.89 - DEP ENDENCE ON OTHER ENABLING MACHINES AND DEVICES Status: Acute Priority: Medium Current Visit: Yes Onset Date: ~09/02/20 Problem Details: compliant with cpap (2) Diabetes mellitus type 2 in obese SNOMED Code(s): 77173133 ICD Code: E11.69 - TYPE 2 DIABETES MELLITUS WITH OTHER SPECIFIED COMPLICAT ION; E66.9 - OBESITY, UNSPECIFIED Status: Acute Priority: High Current Visit: Yes Onset Date: ~09/02/20 (3) Rheumatoid arthritis SNOMED Code(s): 94215301 ICD Code: M06.9 - RHEUMATOID ARTHRITIS, UNSPECIFIED Status: Acute Priority: Medium Current Visit: Yes Onset Date: ~09/02/20 Problem Details: in chronic achey/pain state no changes in meds on chronic low dose steriods. Qualifiers: Rheumatoid arthritis location: multiple sites (4) Atrial fibrillation with rapid ventricular response SNOMED Code(s): 560607875740836 ICD Code: I48.91 - UNSPECIFIED ATRIAL FIBRILLATION Status: Acute Priority: High Current Visit: Yes Onset Date: ~09/02/20 (5) Chronic renal insufficiency, stage III (moderate) SNOMED Code(s): 270754951 ICD Code: N18.30 - CHRONIC KIDNEY DISEASE, STAGE 3 UNSPECIFIED Status: Acute Priority: Medium Current Visit: Yes Onset Date: ~09/02/20 (6) Congestive heart failure SNOMED Code(s): 95352474 ICD Code: I50.9 - HEART FAILURE, UNSPECIFIED Status: Acute Priority: Medium Current Visit: Yes Qualifiers: Heart failure type: diastolic Heart failure chronicity: acute on chronic Qualified Code(s): I50.33 - Acute on chronic diastolic (congestive) heart failure (7) Diastolic CHF SNOMED Code(s): 207445946, 299812773 ICD Code: I50.30 - UNSPECIFIED DIASTOLIC (CONGESTIVE) HEART FAILURE Status: Acute Priority: High Current Visit: No Onset Date: ~09/02/20 (8) Supplemental oxygen dependent SNOMED Code(s): 980962462974 ICD Code: Z99.81 - DEPENDENCE ON SUPPLEMENTAL OXYGEN Status: Acute Priority: Medium Current Visit: No Onset Date: ~09/02/20 Problem List Initiated/Reviewed/Updated: Yes Orders Last 24hrs: Active Orders 24 hr Category Date Time Status Admission Status [Patient Status] [ADT] Routine ADT 09/02/20 16:07 Active EKG 12 Lead [EKG Documentation Completion] [RC] STAT Care 09/02/20 06:38 Active EKG Documentation Completion [RC] STAT Care 09/02/20 12:47 Active EKG Documentation Completion [RC] STAT Care 09/02/20 14:19 Active Oxygen Therapy [RC] ASDIRECTED Care 09/02/20 10:42 Active Peripheral IV Care [RC] . DIRECTED Care 09/02/20 06:38 Active CULTURE URINE [RM] Stat Lab 09/02/20 10:00 Received Diltiazem [Cardizem] 100 mg Med 09/02/20 07:45 Active Sodium Chloride 0.9% [Normal Saline] 100 ml IV ASDIRECTED Sodium Chloride 0.9% [Saline Flush] Med 09/02/20 06:38 Active 10 ml FLUSH ASDIRECTED PRN Peripheral IV Insertion Adult [OM.PC] Stat Oth 09/02/20 06:38 Ordered Medication Orders Diltiazem HCl 100 mg/ Sodium (Chloride) 100 mls @ 10 mls/hr IV ASDIRECTED CJ Last Infusion: 09/02/20 13:10 Dose: 5 mg/hr, 5 mls/hr Documented by: Infusion: 09/02/20 12:15 Dose: 10 mg/hr, 10 mls/hr Documented by: Infusion: 09/02/20 08:16 Dose: 15 mg/hr, 15 mls/hr Documented by: Admin: 09/02/20 07:52 Dose: 10 mg/hr, 10 mls/hr Documented by: MATY Sodium Chloride (Saline Flush) 10 ml FLUSH ASDIRECTED PRN PRN Reason: Keep Vein Open Last Admin: 09/02/20 06:45 Dose: 10 ml Documented by: NONA Assessment/Plan Comment:: 79 year old female admitted with atypical left shoulder and chest and incr easing sob. ? new onset afib seen in e.r. this am and failed to convert with corteg. placed on cardizem drip and rate decreased to 100 form 140-150. chf seen and heard on exam and given lasix with good diuresis. chf chronic with acute and ami ruled out although mild increase in trop noted . she has been hemodynamically stable on o2 2liters and she is on chronic o.2 at home. pmh diabetes /ra leilani obesity pulmonary hypertension? initial ekg shows non spec st changes and second ekg mild inf. st elevation. 3rd ekg unchanged she has no chest pain since admission/ just sob and nosymptoms or exposure to covid she is aware of. p.e. see physical assess: 1)afib with rvr starting 18 hours ago by hx but with hx of chf and known risk factors including age/ra/obesity/leilani/dm. failed conversion and will need echo and further eval for anticoagulation. recomended a as chadsvasc2 risk 3. 2)previous chf. bnp over 8000/ ami ruled out by exam and features with cardiology involved and agreeing with diuresis/ repeat echo ordered. 3)diabetes 2 control unknown. 4)leilani and obesity 5)chronic steriod use for ra. 6)chronic lung disease ? pulm fibrosis or other with hx of steriod/diuretic use and chronic hypoxia on o2 2liter continuous. plan admit cardizem and lasix / start arb. see if she converts but unlikely. discuss anticoagulation further/ favor starting in light of failed attempt at chem. cardioversion. treat comorbidities. apnea control diabetes monitor bnp. and creatinine. - Mortality Measure Prognosis:: Good
[2020-09-02] MEDS ORDERED: Acetaminophen 325 MG Tab PO PRN (17:29)
[2020-09-02] MEDS ORDERED: Triamcinolone Acetonide 0.1% Crm 15 GM Tube TOP PRN (18:30)
[2020-09-02] MEDS: Insulin Lispro 100 Units/ML 3 ML Vial SUBCUT SCH ×2 (19:05→19:07)
[2020-09-02] MEDS: Enoxaparin 30 MG/0.3 ML Syringe SUBCUT SCH (19:08)
[2020-09-02] MEDS ORDERED: INSULIN ASPART SQ SCH (21:00)
[2020-09-02] MEDS: Insulin Glarg,Human.Rec.Analog 100 Unit/ML SUBCUT SCH (21:22)
[2020-09-02] MEDS: Metoprolol Tartrate 25 MG Tab PO SCH (21:22)
[2020-09-03] MEDS: Enoxaparin 30 MG/0.3 ML Syringe SUBCUT SCH (08:12)
[2020-09-03] MEDS: predniSONE 5 MG Tab PO SCH (08:13)
[2020-09-03] MEDS: Magnesium Oxide 400 MG Tab PO SCH (08:13)
[2020-09-03] MEDS: Hydroxychloroquine 200 MG Tab PO SCH (08:13)
[2020-09-03] MEDS: Metoprolol Tartrate 25 MG Tab PO SCH ×2 (08:13→20:34)
[2020-09-03] MEDS: Fish Oil/Omega-3 Fatty Acids 1 Gm Cap PO SCH (08:14)
[2020-09-03] MEDS: Furosemide 40 MG/4 ML VIAL IVPUSH SCH (08:14)
[2020-09-03] MEDS: Diltiazem 240 MG Cap.ER PO SCH (08:14)
[2020-09-03] MEDS: Ezetimibe 10 MG Tab PO SCH (08:14)
[2020-09-03] MEDS: Insulin Lispro 100 Units/ML 3 ML Vial SUBCUT SCH ×8 (08:14→19:04)
[2020-09-03] MEDS: Lisinopril 20 MG Tab PO SCH (08:14)
[2020-09-03] MEDS: Insulin Glarg,Human.Rec.Analog 100 Unit/ML SUBCUT SCH ×2 (08:15→21:51)
[2020-09-03] MEDS: Pantoprazole 40 MG Tab.CR PO SCH (08:48)
[2020-09-03] MEDS ORDERED: UBIDECARENONE PO SCH (09:00)
[2020-09-03] MEDS ORDERED: Pravastatin 40 MG **PTOM PO SCH (09:00)
[2020-09-03] MEDS ORDERED: Apixaban 2.5 MG Tab PO SCH (11:45)
--- NOTE | 2020-09-03 13:05 | PCM.PN ---
- General Info Date of Service: 09/03/20 Admission Dx/Problem (Free Text): Admission Diagnosis/Problem Admission Diagnosis/Problem Atrial fibrillation with rapid ventricular response Subjective Update: Patient is on her baseline oxygen. She is feeling much better and is not having any chest pain or palpitations. Appetite is good. - Review of Systems HEENT: Reports: No Symptoms Pulmonary: Reports: No Symptoms Cardiovascular: Reports: No Symptoms Gastrointestinal: Reports: No Symptoms Musculoskeletal: Reports: No Symptoms Skin: Reports: No Symptoms Neurological: Reports: No Symptoms - Patient Data Vitals - Most Recent: Last Vital Signs Temp 98.1 F 09/03/20 11:58 Pulse 68 09/03/20 11:58 Resp 18 09/03/20 11:58 BP 123/62 09/03/20 11:58 Pulse Ox 99 09/03/20 11:58 Weight - Most Recent: 272 lb 6.4 oz I&O - Last 24 Hours: Intake & Output 09/02/20 09/03/20 09/03/20 22:59 06:59 14:59 Intake Total 320 180 Output Total 200 Balance 120 180 Lab Results Last 24 Hours: Laboratory Results - last 24 hr 09/02/20 09/02/20 09/02/20 Range/Units 14:55 17:40 18:05 POC Glucose 229 H (83-110) mg/dL Creatine Kinase (26-192) U/L CK-MB (CK-2) 1.8 (0-3.6) ng/ml Troponin I 0.142 H* (0.00-0.056) ng/mL C-Reactive Protein (<1.0) mg/dL NT-Pro-B Natriuret Pep 9208 H (0-450) pg/mL 09/02/20 09/03/20 09/03/20 Range/Units 20:19 07:45 07:57 POC Glucose 210 H 88 (83-110) mg/dL Creatine Kinase 67 (26-192) U/L CK-MB (CK-2) (0-3.6) ng/ml Troponin I 0.152 H* (0.00-0.056) ng/mL C-Reactive Protein 11.4 H* (<1.0) mg/dL NT-Pro-B Natriuret Pep (0-450) pg/mL 09/03/20 09/03/20 Range/Units 09:33 10:25 POC Glucose 136 H 154 H (83-110) mg/dL Creatine Kinase (26-192) U/L CK-MB (CK-2) (0-3.6) ng/ml Troponin I (0.00-0.056) ng/mL C-Reactive Protein (<1.0) mg/dL NT-Pro-B Natriuret Pep (0-450) pg/mL Med Orders - Current: Current Medications Acetaminophen (Tylenol) 650 mg PO Q4H PRN PRN Reason: Pain (Mild 1-3)/fever Apixaban (Eliquis) 5 mg PO BID [facility] Diltiazem HCl (Dilacor Xr) 240 mg PO DAILY [facility] Last Admin: 09/03/20 08:14 Dose: 240 mg Documented by: Ezetimibe (Zetia) 10 mg PO DAILY [facility] Last Admin: 09/03/20 08:14 Dose: 10 mg Documented by: Fish Oil (Fish Oil) 1 gm PO DAILY [facility] Last Admin: 09/03/20 08:14 Dose: 1 gm Documented by: Furosemide (Lasix) 40 mg IVPUSH DAILY [facility] Last Admin: 09/03/20 08:14 Dose: 40 mg Documented by: Hydroxychloroquine Sulfate (Plaquenil) 200 mg PO DAILY [facility] Last Admin: 09/03/20 08:13 Dose: 200 mg Documented by: Insulin Glargine (Lantus) 15 unit SUBCUT BID@0700,2100 [facility] Insulin Human Lispro (Humalog) 10 unit SUBCUT TIDAC [facility] Insulin Human Lispro (Humalog) 0 unit SUBCUT TIDAC [facility]; Protocol Lisinopril (Prinivil) 20 mg PO DAILY [facility] Last Admin: 09/03/20 08:14 Dose: 20 mg Documented by: Magnesium Oxide (Magnesium Oxide) 400 mg PO DAILY [facility] Last Admin: 09/03/20 08:13 Dose: 400 mg Documented by: Metoprolol Tartrate (Lopressor) 25 mg PO BID [facility] Last Admin: 09/03/20 08:13 Dose: 25 mg Documented by: Non-Formulary Medication (Pravastatin) 40 mg PO DAILY [facility] Non-Formulary Medication (Ubidecarenone) 1 tab PO DAILY [facility] Pantoprazole Sodium (Protonix) 40 mg PO DAILY@0700 [facility] Last Admin: 09/03/20 08:48 Dose: 40 mg Documented by: Prednisone (Prednisone) 5 mg PO DAILY [facility] Last Admin: 09/03/20 08:13 Dose: 5 mg Documented by: Sodium Chloride (Saline Flush) 10 ml FLUSH ASDIRECTED PRN PRN Reason: Keep Vein Open Last Admin: 09/02/20 06:45 Dose: 10 ml Documented by: Triamcinolone Acetonide (Triamcinolone Acetonide 0.1% Crm) 0 gm TOP BID PRN PRN Reason: skin complications Discontinued Medications Diltiazem HCl (Cardizem) 20 mg IVPUSH ONETIME ONE Stop: 09/02/20 06:41 Last Admin: 09/02/20 06:44 Dose: 20 mg Documented by: Diltiazem HCl (Cardizem) 10 mg IVPUSH ONETIME ONE Stop: 09/02/20 07:40 Last Admin: 09/02/20 07:46 Dose: 10 mg Documented by: Diltiazem HCl (Cardizem Cd) 180 mg PO ONETIME ONE Stop: 09/02/20 12:03 Last Admin: 09/02/20 12:48 Dose: 180 mg Documented by: Enoxaparin Sodium (Lovenox) 30 mg SUBCUT DAILY [facility] Last Admin: 09/03/20 08:12 Dose: 30 mg Documented by: Furosemide (Lasix) 60 mg IVPUSH NOW ONE Stop: 09/02/20 12:09 Last Admin: 09/02/20 12:49 Dose: 60 mg Documented by: Diltiazem HCl 100 mg/ Sodium (Chloride) 100 mls @ 10 mls/hr IV ASDIRECTED [facility] Last Infusion: 09/02/20 13:10 Dose: 5 mg/hr, 5 mls/hr Documented by: Ibutilide Fumarate 1 mg/ (Sodium Chloride) 60 mls @ 300 mls/hr IV ONETIME ONE Stop: 09/02/20 09:34 Last Admin: 09/02/20 18:15 Dose: Not Given Documented by: Ibutilide Fumarate 1 mg/ (Sodium Chloride) 60 mls @ 300 mls/hr IV ONETIME ONE Stop: 09/02/20 09:56 Last Admin: 09/02/20 10:44 Dose: 300 mls/hr Documented by: Ibutilide Fumarate 1 mg/ (Sodium Chloride) 60 mls @ 300 mls/hr IV ONETIME ONE Stop: 09/02/20 10:41 Last Admin: 09/02/20 18:35 Dose: Not Given Documented by: Insulin Glargine (Lantus) 25 unit SUBCUT ONETIME ONE Stop: 09/02/20 12:05 Last Admin: 09/02/20 12:52 Dose: 25 units Documented by: Insulin Glargine (Lantus) 25 unit SUBCUT BID [facility] Last Admin: 09/03/20 08:15 Dose: 15 units Documented by: Insulin Human Lispro (Humalog) 10 unit SUBCUT TIDPC [facility] Last Admin: 09/03/20 12:16 Dose: Not Given Documented by: Insulin Human Lispro (Humalog) 0 unit SUBCUT TIDPC [facility]; Protocol Last Admin: 09/03/20 12:17 Dose: Not Given Documented by: Lisinopril (Prinivil) 20 mg PO ONETIME ONE Stop: 09/02/20 12:06 Last Admin: 09/02/20 12:48 Dose: 20 mg Documented by: Metoprolol Tartrate (Lopressor) 25 mg PO ONETIME ONE Stop: 09/02/20 12:08 Last Admin: 09/02/20 12:46 Dose: 25 mg Documented by: Non-Formulary Medication (Insulin Aspart) 4 - 15 unit SQ TID [facility] Prednisone (Prednisone) 5 mg PO NOW STA Stop: 09/02/20 12:06 Last Admin: 09/02/20 12:49 Dose: 5 mg Documented by: - Exam Quality Assessment: Supplemental Oxygen General: Alert, Oriented HEENT: Pupils Equal, Mucous Membr. Moist/Chauncey Neck: Supple Lungs: Clear to Auscultation, Normal Respiratory Effort Cardiovascular: Irregular Rhythm GI/Abdominal Exam: Normal Bowel Sounds, Soft, Non-Tender, No Organomegaly, No Distention, No Abnormal Bruit, No Mass, Pelvis Stable Extremities: Normal Inspection, Normal Capillary Refill Skin: Warm, Dry, Intact Psy/Mental Status: Alert, Normal Affect, Normal Mood Sepsis Event Note - Evaluation Sepsis Screening Result: No Definite Risk - Focused Exam Vital Signs: Vital Signs Temp Pulse Resp BP Pulse Ox 09/03/20 11:58 98.1 F 68 18 123/62 99 09/03/20 08:14 134/76 09/03/20 08:13 106 H 134/76 09/03/20 07:54 98.1 F 106 H 20 134/76 100 09/03/20 04:18 83 18 110/81 96 09/03/20 01:07 97.9 F 114 H 18 139/76 95 - Problem List & Annotations (1) Anemia SNOMED Code(s): 559145321 Code(s): D64.9 - ANEMIA, UNSPECIFIED Status: Acute Current Visit: Yes Qualifiers: Anemia type: due to chronic kidney disease Chronic kidney disease stage 3 subtype: stage 3b (GFR 30-44) (2) Atrial fibrillation with rapid ventricular response SNOMED Code(s): 774652187986192 Code(s): I48.91 - UNSPECIFIED ATRIAL FIBRILLATION Status: Acute Priority: High Current Visit: Yes Onset Date: ~09/02/20 (3) Chronic renal insufficiency, stage III (moderate) SNOMED Code(s): 226521724 Code(s): N18.30 - CHRONIC KIDNEY DISEASE, STAGE 3 UNSPECIFIED Status: Acute Priority: Medium Current Visit: Yes Onset Date: ~09/02/20 (4) Congestive heart failure SNOMED Code(s): 76791546 Code(s): I50.9 - HEART FAILURE, UNSPECIFIED Status: Acute Priority: Medium Current Visit: Yes Qualifiers: Heart failure type: diastolic Heart failure chronicity: acute on chronic Qualified Code(s): I50.33 - Acute on chronic diastolic (congestive) heart failure (5) Diabetes mellitus type 2 in obese SNOMED Code(s): 08571686 Code(s): E11.69 - TYPE 2 DIABETES MELLITUS WITH OTHER SPECIFIED COMPLICATION; E66.9 - OBESITY, UNSPECIFIED Status: Acute Priority: High Current Visit: Yes Onset Date: ~09/02/20 (6) LEILANI on CPAP SNOMED Code(s): 43627031 Code(s): G47.33 - OBSTRUCTIVE SLEEP APNEA (ADULT) (PEDIATRIC); Z99.89 - DEPENDENCE ON OTHER ENABLING MACHINES AND DEVICES Status: Acute Priority: Medium Current Visit: Yes Onset Date: ~09/02/20 Annotation/Comment:: com pliant with cpap (7) Rheumatoid arthritis SNOMED Code(s): 78282387 Code(s): M06.9 - RHEUMATOID ARTHRITIS, UNSPECIFIED Status: Acute Priority: Medium Current Visit: Yes Onset Date: ~09/02/20 Qualifiers: Rheumatoid arthritis location: multiple sites Annotation/Comment:: in chronic achey/pain state no changes in meds on chronic low dose steriods. - Problem List Review Problem List Initiated/Reviewed/Updated: Yes - My Orders Last 24 Hours: My Active Orders 09/03/20 11:45 Apixaban [Eliquis] 5 mg PO BID 09/03/20 11:50 COMPREHENSIVE METABOLIC PN,CMP [CHEM] Routine MAGNESIUM [CHEM] Routine PHOSPHORUS [CHEM] Routine 09/03/20 13:03 CXR [Chest 1V Frontal] [CR] Routine 09/03/20 17:00 Insulin Lispro [HumaLOG] 10 unit SUBCUT TIDAC Insulin Lispro [HumaLOG] See Protocol SUBCUT TIDAC 09/04/20 05:11 CBC WITH AUTO DIFF [HEME] AM CMP [COMPREHENSIVE METABOLIC PN,CMP] [CHEM] AM MAGNESIUM [CHEM] AM PHOSPHORUS [CHEM] AM - Plan Plan:: 79 year old female admitted with atypical left shoulder and chest and incre asing sob. ? new onset afib seen in e.r. this am and failed to convert with corteg. placed on cardizem drip and rate decreased to 100 form 140-150. chf seen and heard on exam and given lasix with good diuresis. chf chronic with acute and ami ruled out although mild increase in trop noted . she has been hemodynamically stable on o2 2liters and she is on chronic o.2 at home. pmh diabetes /ra leilani obesity pulmonary hypertension? initial ekg shows non spec st changes and second ekg mild inf. st elevation. 3rd ekg unchanged she has no chest pain since admission/ just sob and nosymptoms or exposure to covid she is aware of. p.e. see physical 09/02/2020 assess: 1)afib with rvr starting 18 hours prior to admission by hx but with hx of chf and known risk factors including age/ra/obesity/leilani/dm. failed conversion and will need echo and further eval for anticoagulation. recomended a as chadsvasc2 risk 3. 2)previous chf. bnp over 8000/ ami ruled out by exam and features with cardiology involved and agreeing with diuresis/ repeat echo o rdered. 3)diabetes 2 control unknown. 4)leilani and obesity 5)chronic steriod use for ra. 6)chronic lung disease ? pulm fibrosis or other with hx of steriod/diuretic use and chronic hypoxia on o2 2liter continuous. 09/03/2020 Rate well controlled today on Cardizem 240 mg daily Lungs with mild rales consistent with some pulmonary congestion. This is likely secondary to rate related heart failure. Type II OH secondary to A. fib with RVR with labile troponin Type 2 diabetes Chest x-ray shows nonspecific bibasilar consolidation consistent with atel ectasis, edema, or pneumonia. Lungs are hyperinflated, consistent with underlying small airways disease COPD with chronic oxygen at 2 L nasal cannula during the day and 6 L bled into her BiPAP at night Rheumatoid arthritis Plan Continue cardizem, metoprolol, and lasix Get echocardiogram in the morning Follow labs and get hemoglobin A1c, TSH, lipid panel in the morning Start Eliquis 5 mg twice daily for stroke prophylaxis Decrease mealtime insulin to 10 units with glargine 15 units twice daily apnea control diabetes monitor bnp. and creatinine. VTE prophylaxis with Eliquis CODE STATUS full code Anticipate discharge tomorrow if continues to improve.
[2020-09-03] MEDS: Apixaban 2.5 MG Tab PO SCH (20:31)
[2020-09-04] MEDS: Pantoprazole 40 MG Tab.CR PO SCH (06:37)
[2020-09-04 07:19] LABS: HEMOGLOBIN A1C 6.6 % (4.50-6.20)
[2020-09-04] MEDS: Insulin Lispro 100 Units/ML 3 ML Vial SUBCUT SCH ×4 (07:50→12:18)
[2020-09-04] MEDS: Insulin Glarg,Human.Rec.Analog 100 Unit/ML SUBCUT SCH (08:17)
[2020-09-04] MEDS: Magnesium Oxide 400 MG Tab PO SCH (08:22)
[2020-09-04] MEDS: Diltiazem 240 MG Cap.ER PO SCH (08:22)
[2020-09-04] MEDS: Fish Oil/Omega-3 Fatty Acids 1 Gm Cap PO SCH (08:22)
[2020-09-04] MEDS: Metoprolol Tartrate 25 MG Tab PO SCH (08:23)
[2020-09-04] MEDS: Apixaban 2.5 MG Tab PO SCH (08:23)
[2020-09-04] MEDS: predniSONE 5 MG Tab PO SCH (08:23)
[2020-09-04] MEDS: Ezetimibe 10 MG Tab PO SCH (08:23)
[2020-09-04] MEDS: Hydroxychloroquine 200 MG Tab PO SCH (08:23)
[2020-09-04] MEDS: Lisinopril 20 MG Tab PO SCH (08:26)
[2020-09-04] MEDS: Furosemide 40 MG/4 ML VIAL IVPUSH SCH (08:30)
--- NOTE | 2020-09-04 11:58 | PCM.DCSUM1 ---
Discharge Summary - Hospital Course HPI Initial Comments: 79 year old female admitted with atypical left shoulder and chest and increasing sob. ? new onset afib seen in e.r. this am and failed to convert with corteg. placed on cardizem drip and rate decreased to 100 form 140-150. chf seen and heard on exam and given lasix with good diuresis. chf chronic with acute and ami ruled out although mild increase in trop noted . she has been hemodynamically stable on o2 2liters and she is on chronic o.2 at home. pmh diabetes /ra leilani obesity pulmonary hypertension? initial ekg shows non spec st changes and second ekg mild inf. st elevation. 3rd ekg unchanged she has no chest pain since admission/ just sob and nosymptoms or exposure to covid she is aware of. p.e. see physical assess: 1)afib with rvr starting 18 hours ago by hx but with hx of chf and known risk factors including age/ra/obesity/leilani/dm. failed conversion and will need echo and further eval for anticoagulation. recomended a as ch adsvasc2 risk 3. 2)previous chf. bnp over 8000/ ami ruled out by exam and features with cardiology involved and agreeing with diuresis/ repeat echo ordered. 3)diabetes 2 control unknown. 4)leilani and obesity 5)chronic steriod use for ra. 6)chronic lung disease ? pulm fibrosis or other with hx of steriod/diuretic use and chronic hypoxia on o2 2liter continuous. plan admit cardizem and lasix / start arb. see if she converts but unlikely. discuss anticoagulation further/ favor starting in light of failed attempt at chem. cardioversion. treat comorbidities. apnea control diabetes monitor bnp. and creatinine. Diagnosis: Stroke: No - Discharge Data Discharge Date: 09/04/20 (Admission date: 09/02/20) Discharge Disposition: Home, Self-Care 01 Condition: Good - Referral to Home Health Primary Care Physician: Abraham Ramirez MD - Discharge Diagnosis/Problem(s) (1) Type 2 myocardial infarction SNOMED Code(s): 20815387 ICD Code: I21.A1 - MYOCARDIAL INFARCTION TYPE 2 Status: Acute Priority: High Current Visit: Yes (2) Anemia SNOMED Code(s): 247620989 ICD Code: D64.9 - ANEMIA, UNSPECIFIED Status: Chronic Priority: Medium Current Visit: Yes Qualifiers: Anemia type: due to chronic kidney disease Chronic kidney disease stage 3 subtype: stage 3b (GFR 30-44) (3) Atrial fibrillation with rapid ventricular response SNOMED Code(s): 325696575338710 ICD Code: I48.91 - UNSPECIFIED ATRIAL FIBRILLATION Status: Resolved Priority: High Current Visit: Yes Onset Date: ~09/02/20 (4) Chronic renal insufficiency, stage III (moderate) SNOMED Code(s): 436819662 ICD Code: N18.30 - CHRONIC KIDNEY DISEASE, STAGE 3 UNSPECIFIED Status: Chronic Priority: Medium Current Visit: Yes Onset Date: ~09/02/20 (5) Congestive heart failure SNOMED Code(s): 41827030 ICD Code: I50.9 - HEART FAILURE, UNSPECIFIED Status: Acute Priority: Medium Current Visit: Yes Qualifiers: Heart failure type: diastolic Heart failure chronicity: acute on chronic Qualified Code(s): I50.33 - Acute on chronic diastolic (congestive) heart failure (6) Diabetes mellitus type 2 in obese SNOMED Code(s): 24714931 ICD Code: E11.69 - TYPE 2 DIABETES MELLITUS WITH OTHER SPECIFIED COMPLIC ATION; E66.9 - OBESITY, UNSPECIFIED Status: Chronic Priority: High Current Visit: Yes Onset Date: ~09/02/20 (7) LEILANI on CPAP SNOMED Code(s): 14864893 ICD Code: G47.33 - OBSTRUCTIVE SLEEP APNEA (ADULT) (PEDIATRIC); Z99.89 - DEPENDENCE ON OTHER ENABLING MACHINES AND DEVICES Status: Chronic Priority: Medium Current Visit: Yes Onset Date: ~09/02/20 Problem Details: compliant with cpap (8) Rheumatoid arthritis SNOMED Code(s): 01756283 ICD Code: M06.9 - RHEUMATOID ARTHRITIS, UNSPECIFIED Status: Chronic Priority: Medium Current Visit: Yes Onset Date: ~09/02/20 Problem Details: in chronic achey/pain state no changes in meds on chronic low dose steriods. Qualifiers: Rheumatoid arthritis location: multiple sites - Patient Summary/Data Consults: Consultations 09/02/20 17:29 Consult to Diabetic Nurse Specialist [CONS] Routine Consult to Bill Peddler [CONS] Routine PT Evaluation and Treatment [CONS] Routine Labs Pending at D/C: None Recommended Follow-up Testing/Procedures: Follow-up with primary care provider within 5-7 days of discharge, sooner if needed. Will need outpatient follow-up echocardiogram. Attempted to obtain one here ho or to discharge with next available opening on 09/07/20 Hospital Course: Bandar is a 79 yo female who was admitted to the medical floor on telemetry due to A. fib and RVR which had reportedly started 18 as prior to admission. She has known risk factors including her age, history of RA, obesity, LEILANI, and diabetes. Chadsvasc2 was obtained 3. BNP was noted to be over 8000. She was given Cardizem and Lasix but failed to convert. Trolled with Cardizem 240 mg daily. Troponin was elevated 0.152 suggestive of a type II GA secondary to A. fib and RVR. She does have a history of COPD and is on chronic oxygenation at 2 L via nasal cannula and 6 L bled into her BiPAP at night. Chest x-rays obtained showing nonspecific bibasilar consolidation consistent with atelectasis edema or pneumonia. Lungs were hyperinflated consistent with underlying small airway disease. Attempted to obtain echocardiogram prior to discharge however none is available until Monday morning. Patient will receive this outpatient and results should be mailed to the primary care provider. Globin A1c was obtained was 6.60. Lipid panel was obtained and triglycerides were 25, total cholesterol was 135, LDL was 68, HDL was 44. TSH was obtained was 0.866. She was started on Eliquis 5 mg twice daily and this will be continued at discharge. She was also started on Cardizem 240 mg daily and this will be continued at discharge as well. All other home medications were continued. At this point we will continue patient's home dose of Lasix and await results of echocardiogram. At that time primary care provider should review echo results and consider changing Lasix dosing if warranted. Discussed need to check blood pressure twice a day and recorded in a journal with the patient. We also discussed taking daily weights and recording this as well. She was instructed to bring this to all medical appointments. She will be given an incentive spirometer prior to discharge and was advised to use this for 1 to 2 weeks. She does check her blood sugars religiously and her A1c is quite good so we will continue her home regimen. Physical therapy did work with the patient who walked with a walker. They are recommending home with family assistance. Was discharged today. - Patient Instructions Diet: Low Sodium, Diabetic Diet Activity: As Tolerated Showering/Bathing: May Shower Notify Provider of: Fever, Increased Pain, Nausea and/or Vomiting Other/Special Instructions: Follow-up with primary care provider within 5-7 days of discharge, sooner if needed. Resume home medications as directed. Take all new medications as prescribed. Take your bloood glucose readings per your prior routine. Obtain outpatient echocardiogram as scheduled. Take your weight daily and record this in a journal. Bring this journal with to all medical appo intments. Take your blood pressure twice daily and record this in a journal. Bring this with to all medical appointments. Use the incentive spirometer (clear/blue device you INHALE through) for the next 1-2 weeks. Continue to utilize your home oxygen at 2L as before. Should symptoms return or worsen contact your primary care provider or return to the Emergency Departement. - Discharge Plan *PRESCRIPTION DRUG MONITORING PROGRAM REVIEWED*: No *COPY OF PRESCRIPTION DRUG MONITORING REPORT IN PATIENT MARY ALICE: No Prescriptions/Med Rec: Diltiazem [Dilacor XR] 240 mg PO DAILY #20 cap.er Apixaban [Eliquis] 5 mg PO BID #60 tablet Home Medications: Home Meds Magnesium 250 mg PO DAILY 05/07/14 [History] Furosemide [Lasix] 40 mg PO DAILY 03/08/16 [History] predniSONE [Prednisone] 5 mg PO DAILY 03/08/16 [History] Dextrose [Glucose] 4 gm PO DAILY PRN 04/21/17 [History] Fish Oil/[place]-3 Fatty Acids [Fish Oil 1,000 MG] 1 cap PO DAILY 04/21/17 [History] Insulin Aspart [Novolog Flexpen] 10 unit SQ TID 04/21/17 [History] Lisinopril 20 mg PO DAILY 04/21/17 [History] Multivit,Calc,Mins/Iron/Folic [Thera-M] 1 each PO DAILY 04/21/17 [History] Ezetimibe [Zetia] 10 mg PO DAILY 05/09/18 [History] Omeprazole Magnesium [Prilosec Otc] 20 mg PO DAILY 05/09/18 [History] Pravastatin [Pravachol] 40 mg PO DAILY 05/09/18 [History] Ubidecarenone [Coq-10] 1 tab PO DAILY 05/09/18 [History] Leflunomide [Arava] 20 mg PO DAILY 05/30/19 [History] Metoprolol Tartrate [Lopressor] 25 mg PO BID 05/30/19 [History] Triamcinolone Acetonide [Triamcinolone Acetonide 0.1% Crm] 1 dose TOP BID PRN 05/30/19 [History] Insulin Glargine,Hum.Rec.Anlog [Basaglar Kwikpen U-100] 25 units SUBCUT BID 09/26/19 [History] Hydroxychloroquine [Plaquenil] 200 mg PO DAILY 09/02/20 [History] Apixaban [Eliquis] 5 mg PO BID #60 tablet 09/04/20 [Rx] Diltiazem [Dilacor XR] 240 mg PO DAILY #20 cap.er 09/04/20 [Rx] Oxygen Therapy Mode: Nasal Cannula Oxygen Flow Rate (L/min): 2 Patient Handouts: Heart Failure Action Plan, Apixaban oral tablets, Atrial Fibrillation, [id number] Referrals: Abraham Ramirez MD [Primary Care Provider] - 09/11/20 1:00 pm (Please follow up with Dr. Ramirez on September 11 at 1pm. If this appointment does not fit your schedule, you may call the clinic and reschedule it. ) - Discharge Summary/Plan Comment DC Time >30 min.: Yes (45 mins ) - General Info Date of Service: 09/04/20 Admission Dx/Problem (Free Text: Admission Diagnosis/Problem Admission Diagnosis/Problem Atrial fibrillation with rapid ventricular response Functional Status: Reports: Pain Controlled, Tolerating Diet, Ambulating, Urin ating, Incentive Spirometry (added prior to discharge ). Denies: New Symptoms - Review of Systems General: Reports: No Symptoms. Denies: Fever, Weakness, Fatigue, Malaise, Chills HEENT: Reports: No Symptoms. Denies: Headaches, Sore Throat Pulmonary: Reports: Shortness of Breath (chronic but at baseline ). Denies: Pleuritic Chest Pain, Cough, Sputum, Wheezing Cardiovascular: Denies: Chest Pain, Palpitations Gastrointestinal: Reports: No Symptoms. Denies: Abdominal Pain, Constipation, Diarrhea, Nausea, Vomiting Genitourinary: Reports: No Symptoms. Denies: Pain Musculoskeletal: Reports: No Symptoms Skin: Reports: No Symptoms. Denies: Cyanosis Neurological: Reports: No Symptoms. Denies: Confusion, Numbness, Tingling, Difficulty Walking, Weakness, Gait Disturbance Psychiatric: Reports: No Symptoms - Patient Data Vitals - Most Recent: Last Vital Signs Temp 98.2 F 09/04/20 08:12 Pulse 83 09/04/20 08:25 Resp 16 09/04/20 08:12 BP 138/52 L 09/04/20 08:26 Pulse Ox 98 09/04/20 08:25 Weight - Most Recent: 270 lb I&O - Last 24 hours: Intake & Output 09/03/20 09/04/20 09/04/20 22:59 06:59 14:59 Intake Total 180 450 Output Total 600 Balance 180 -150 Lab Results - Last 24 hrs: Laboratory Results - last 24 hr 09/03/20 09/03/20 09/03/20 Range/Units 12:35 16:34 21:44 WBC (3.98-10.04) K/mm3 RBC (3.98-5.22) M/mm3 Hgb (11.2-15.7) gm/dl Hct (34.1-44.9) % MCV (79.4-94.8) fl MCH (25.6-32.2) pg MCHC (32.2-35.5) g/dl RDW Std Deviation (36.4-46.3) fL Plt Count (182-369) K/mm3 MPV (9.4-12.3) fl Neut % (Auto) (34.0-71.1) % Lymph % (Auto) (19.3-51.7) % Barron % (Auto) (4.7-12.5) % Eos % (Auto) (0.7-5.8) Baso % (Auto) (0.1-1.2) % Neut # (Auto) (1.56-6.13) K/mm3 Lymph # (Auto) (1.18-3.74) K/mm3 Barron # (Auto) (0.24-0.36) K/mm3 Eos # (Auto) (0.04-0.36) K/mm3 Baso # (Auto) (0.01-0.08) K/mm3 Sodium 141 (136-145) mEq/L Potassium 4.2 (3.5-5.1) mEq/L Chloride 105 (98-107) mEq/L Carbon Dioxide 29 (21-32) mEq/L Anion Gap 11.2 (5-15) BUN 51 H (7-18) mg/dL Creatinine 1.6 H (0.55-1.02) mg/dL Est Cr Clr Drug Dosing 20.81 mL/min Estimated GFR (MDRD) 31 (>60) mL/min BUN/Creatinine Ratio 31.9 H (14-18) Glucose 170 H (83-115) mg/dL POC Glucose 90 158 H (83-110) mg/dL Hemoglobin A1c (4.50-6.20) % Calcium 8.9 (8.5-10.1) mg/dL Phosphorus 4.3 (2.6-4.7) mg/dL Magnesium 2.1 (1.8-2.4) mg/dl Total Bilirubin 0.3 (0.2-1.0) mg/dL AST 16 (15-37) U/L ALT 20 (14-59) U/L Alkaline Phosphatase 66 (46-116) U/L Total Protein 6.1 L (6.4-8.2) g/dl Albumin 2.4 L (3.4-5.0) g/dl Globulin 3.7 gm/dL Albumin/Globulin Ratio 0.7 L (1-2) Triglycerides (<150) mg/dL Cholesterol (<200) mg/dL LDL Cholesterol Direct (<100) mg/dL HDL Cholesterol (40-59) mg/dL TSH 3rd Generation (0.358-3.74) uIU/mL 09/04/20 09/04/20 09/04/20 Range/Units 05:40 05:40 05:40 WBC 4.09 (3.98-10.04) K/mm3 RBC 3.29 L (3.98-5.22) M/mm3 Hgb 9.8 L (11.2-15.7) gm/dl Hct 30.7 L (34.1-44.9) % MCV 93.3 (79.4-94.8) fl MCH 29.8 (25.6-32.2) pg MCHC 31.9 L (32.2-35.5) g/dl RDW Std Deviation 49.5 H (36.4-46.3) fL Plt Count 182 (182-369) K/mm3 MPV 10.5 (9.4-12.3) fl Neut % (Auto) 60.2 (34.0-71.1) % Lymph % (Auto) 23.5 (19.3-51.7) % Barron % (Auto) 13.7 H (4.7-12.5) % Eos % (Auto) 2.4 (0.7-5.8) Baso % (Auto) 0.2 (0.1-1.2) % Neut # (Auto) 2.46 (1.56-6.13) K/mm3 Lymph # (Auto) 0.96 L (1.18-3.74) K/mm3 Barron # (Auto) 0.56 H (0.24-0.36) K/mm3 Eos # (Auto) 0.10 (0.04-0.36) K/mm3 Baso # (Auto) 0.01 (0.01-0.08) K/mm3 Sodium 141 (136-145) mEq/L Potassium 4.1 (3.5-5.1) mEq/L Chloride 105 (98-107) mEq/L Carbon Dioxide 29 (21-32) mEq/L Anion Gap 11.1 (5-15) BUN 52 H (7-18) mg/dL Creatinine 1.5 H (0.55-1.02) mg/dL Est Cr Clr Drug Dosing 22.20 mL/min Estimated GFR (MDRD) 34 (>60) mL/min BUN/Creatinine Ratio 34.7 H (14-18) Glucose 132 H (83-115) mg/dL POC Glucose (83-110) mg/dL Hemoglobin A1c 6.60 H (4.50-6.20) % Calcium 8.9 (8.5-10.1) mg/dL Phosphorus 3.9 (2.6-4.7) mg/dL Magnesium 2.3 (1.8-2.4) mg/dl Total Bilirubin 0.4 (0.2-1.0) mg/dL AST 20 (15-37) U/L ALT 22 (14-59) U/L Alkaline Phosphatase 64 (46-116) U/L Total Protein 6.5 (6.4-8.2) g/dl Albumin 2.5 L (3.4-5.0) g/dl Globulin 4.0 gm/dL Albumin/Globulin Ratio 0.6 L (1-2) Triglycerides 125 (<150) mg/dL Cholesterol 135 (<200) mg/dL LDL Cholesterol Direct 68 (<100) mg/dL HDL Cholesterol 44.0 (40-59) mg/dL TSH 3rd Generation 0.866 (0.358-3.74) uIU/mL 09/04/20 09/04/20 Range/Units 05:40 11:50 WBC (3.98-10.04) K/mm3 RBC (3.98-5.22) M/mm3 Hgb (11.2-15.7) gm/dl Hct (34.1-44.9) % MCV (79.4-94.8) fl MCH (25.6-32.2) pg MCHC (32.2-35.5) g/dl RDW Std Deviation (36.4-46.3) fL Plt Count (182-369) K/mm3 MPV (9.4-12.3) fl Neut % (Auto) (34.0-71.1) % Lymph % (Auto) (19.3-51.7) % Barron % (Auto) (4.7-12.5) % Eos % (Auto) (0.7-5.8) Baso % (Auto) (0.1-1.2) % Neut # (Auto) (1.56-6.13) K/mm3 Lymph # (Auto) (1.18-3.74) K/mm3 Barron # (Auto) (0.24-0.36) K/mm3 Eos # (Auto) (0.04-0.36) K/mm3 Baso # (Auto) (0.01-0.08) K/mm3 Sodium (136-145) mEq/L Potassium (3.5-5.1) mEq/L Chloride (98-107) mEq/L Carbon Dioxide (21-32) mEq/L Anion Gap (5-15) BUN (7-18) mg/dL Creatinine (0.55-1.02) mg/dL Est Cr Clr Drug Dosing mL/min Estimated GFR (MDRD) (>60) mL/min BUN/Creatinine Ratio (14-18) Glucose (83-115) mg/dL POC Glucose 129 H 144 H (83-110) mg/dL Hemoglobin A1c (4.50-6.20) % Calcium (8.5-10.1) mg/dL Phosphorus (2.6-4.7) mg/dL Magnesium (1.8-2.4) mg/dl Total Bilirubin (0.2-1.0) mg/dL AST (15-37) U/L ALT (14-59) U/L Alkaline Phosphatase (46-116) U/L Total Protein (6.4-8.2) g/dl Albumin (3.4-5.0) g/dl Globulin gm/dL Albumin/Globulin Ratio (1-2) Triglycerides (<150) mg/dL Cholesterol (<200) mg/dL LDL Cholesterol Direct (<100) mg/dL HDL Cholesterol (40-59) mg/dL TSH 3rd Generation (0.358-3.74) uIU/mL RICHARD Results - Last 24 hrs: Microbiology 09/02/20 10:00 Urine Culture - Final Urine, Bladder MIXED RAJEEV SUGGESTIVE OF CONTAMINATION. Med Orders - Current: Current Medications Acetaminophen (Tylenol) 650 mg PO Q4H PRN PRN Reason: Pain (Mild 1-3)/fever Apixaban (Eliquis) 5 mg PO BID [facility] Diltiazem HCl (Dilacor Xr) 240 mg PO DAILY [facility] Last Admin: 09/04/20 08:22 Dose: 240 mg Documented by: Ezetimibe (Zetia) 10 mg PO DAILY [facility] Last Admin: 09/04/20 08:23 Dose: 10 mg Documented by: Fish Oil (Fish Oil) 1 gm PO DAILY [facility] Last Admin: 09/04/20 08:22 Dose: 1 gm Documented by: Furosemide (Lasix) 40 mg IVPUSH DAILY [facility] Last Admin: 09/04/20 08:30 Dose: 40 mg Documented by: Hydroxychloroquine Sulfate (Plaquenil) 200 mg PO DAILY [facility] Last Admin: 09/04/20 08:23 Dose: 200 mg Documented by: Insulin Glargine (Lantus) 15 unit SUBCUT BID@0700,2100 [facility] Last Admin: 09/04/20 08:17 Dose: 15 units Documented by: Insulin Human Lispro (Humalog) 10 unit SUBCUT TIDAC [facility] Last Admin: 09/04/20 08:20 Dose: 10 units Documented by: Insulin Human Lispro (Humalog) 0 unit SUBCUT TIDAC [facility]; Protocol Last Admin: 09/04/20 07:50 Dose: Not Given Documented by: Lisinopril (Prinivil) 20 mg PO DAILY [facility] Last Admin: 09/04/20 08:26 Dose: 20 mg Documented by: Magnesium Oxide (Magnesium Oxide) 400 mg PO DAILY [facility] Last Admin: 09/04/20 08:22 Dose: 400 mg Documented by: Metoprolol Tartrate (Lopressor) 25 mg PO BID [facility] Last Admin: 09/04/20 08:23 Dose: 25 mg Documented by: Pravastatin 40 Mg (Ptom) 0 mg PO DAILY [facility] Pantoprazole Sodium (Protonix) 40 mg PO DAILY@0700 [facility] Last Admin: 09/04/20 06:37 Dose: 40 mg Documented by: Prednisone (Prednisone) 5 mg PO DAILY [facility] Last Admin: 09/04/20 08:23 Dose: 5 mg Documented by: Sodium Chloride (Saline Flush) 10 ml FLUSH ASDIRECTED PRN PRN Reason: Keep Vein Open Last Admin: 09/02/20 06:45 Dose: 10 ml Documented by: Triamcinolone Acetonide (Triamcinolone Acetonide 0.1% Crm) 0 gm TOP BID PRN PRN Reason: skin complications Discontinued Medications Apixaban (Eliquis) 5 mg PO BID [facility] Last Admin: 09/03/20 16:50 Dose: Not Given Documented by: Apixaban (Eliquis) 5 mg PO BID [facility] Last Admin: 09/04/20 08:23 Dose: 5 mg Documented by: Diltiazem HCl (Cardizem) 20 mg IVPUSH ONETIME ONE Stop: 09/02/20 06:41 Last Admin: 09/02/20 06:44 Dose: 20 mg Documented by: Diltiazem HCl (Cardizem) 10 mg IVPUSH ONETIME ONE Stop: 09/02/20 07:40 Last Admin: 09/02/20 07:46 Dose: 10 mg Documented by: Diltiazem HCl (Cardizem Cd) 180 mg PO ONETIME ONE Stop: 09/02/20 12:03 Last Admin: 09/02/20 12:48 Dose: 180 mg Documented by: Enoxaparin Sodium (Lovenox) 30 mg SUBCUT DAILY [facility] Last Admin: 09/03/20 08:12 Dose: 30 mg Documented by: Furosemide (Lasix) 60 mg IVPUSH NOW ONE Stop: 09/02/20 12:09 Last Admin: 09/02/20 12:49 Dose: 60 mg Documented by: Diltiazem HCl 100 mg/ Sodium (Chloride) 100 mls @ 10 mls/hr IV ASDIRECTED [facility] Last Infusion: 09/02/20 13:10 Dose: 5 mg/hr, 5 mls/hr Documented by: Ibutilide Fumarate 1 mg/ (Sodium Chloride) 60 mls @ 300 mls/hr IV ONETIME ONE Stop: 09/02/20 09:34 Last Admin: 09/02/20 18:15 Dose: Not Given Documented by: Ibutilide Fumarate 1 mg/ (Sodium Chloride) 60 mls @ 300 mls/hr IV ONETIME ONE Stop: 09/02/20 09:56 Last Admin: 09/02/20 10:44 Dose: 300 mls/hr Documented by: Ibutilide Fumarate 1 mg/ (Sodium Chloride) 60 mls @ 300 mls/hr IV ONETIME ONE Stop: 09/02/20 10:41 Last Admin: 09/02/20 18:35 Dose: Not Given Documented by: Insulin Glargine (Lantus) 25 unit SUBCUT ONETIME ONE Stop: 09/02/20 12:05 Last Admin: 09/02/20 12:52 Dose: 25 units Documented by: Insulin Glargine (Lantus) 25 unit SUBCUT BID [facility] Last Admin: 09/03/20 08:15 Dose: 15 units Documented by: Insulin Human Lispro (Humalog) 10 unit SUBCUT [facility] Last Admin: 09/03/20 12:16 Dose: Not Given Documented by: Insulin Human Lispro (Humalog) 0 unit SUBCUT [facility]; Protocol Last Admin: 09/03/20 12:17 Dose: Not Given Documented by: Lisinopril (Prinivil) 20 mg PO ONETIME ONE Stop: 09/02/20 12:06 Last Admin: 09/02/20 12:48 Dose: 20 mg Documented by: Metoprolol Tartrate (Lopressor) 25 mg PO ONETIME ONE Stop: 09/02/20 12:08 Last Admin: 09/02/20 12:46 Dose: 25 mg Documented by: Non-Formulary Medication (Insulin Aspart) 4 - 15 unit SQ TID [facility] Non-Formulary Medication (Ubidecarenone) 1 tab PO DAILY [facility] Prednisone (Prednisone) 5 mg PO NOW STA Stop: 09/02/20 12:06 Last Admin: 09/02/20 12:49 Dose: 5 mg Documented by: - Exam Quality Assessment: Reports: Supplemental Oxygen (2L chronic ), DVT Prophylaxis General: Reports: Alert, Oriented, Cooperative, No Acute Distress HEENT: Reports: Pupils Equal, Pupils Reactive, Mucous Membr. Moist/[place] Neck: Reports: Supple, Trachea Midline Lungs: Reports: Normal Respiratory Effort, Decreased Breath Sounds Cardiovascular: Reports: Regular Rate, Regular Rhythm GI/Abdominal Exam: Normal Bowel Sounds, Soft, Non-Tender, No Distention (Female) Exam: Deferred Rectal (Female) Exam: Deferred Back Exam: Reports: Normal Inspection, Decreased Range of Motion Extremities: Normal Range of Motion, Non-Tender Skin: Reports: Warm, Dry, Intact Neurological: Reports: No New Focal Deficit Psy/Mental Status: Reports: Alert
[2020-09-04 16:37] VITALS: BP 115/60; PULSE 84
[2020-09-04] MEDS ORDERED: Apixaban 5 MG Tab PO SCH (21:00)
--- NOTE | 2020-09-07 09:32 | CR ---
PROCEDURE INFORMATION: Exam: XR Chest, 1 View Exam date and time: 09/03/2020 1:37 PM Age: 79 years old Clinical indication: Condition or disease; Other: CHF TECHNIQUE: Imaging protocol: XR of the chest Views: 1 view. COMPARISON: OT Chest 1V Frontal 09/02/2020 7:26 AM FINDINGS: Lungs: Nonspecific bibasilar consolidation is present, consistent with atelectasis, edema, or pneumonia. The lungs are hyperinflated, consistent with underlying small airways disease. Pleural space: Unremarkable. No pleural effusion. No pneumothorax. Heart/Mediastinum: The heart demonstrates mild diffuse enlargement. Bones/joints: Unremarkable. IMPRESSION: 1. Nonspecific bibasilar consolidation is present, consistent with atelectasis, edema, or pneumonia. 2. The lungs are hyperinflated, consistent with underlying small airways disease. Thank you for allowing us to participate in the care of your patient. Dictated and Authenticated by: Vincent Goncalves DO 09/03/2020 3:15 PM Central Time ([place] & [place]) [email or web address]
== END 2020-09-04 13:00 | disposition home or self-care (01) | DRG 280 ==
LOC: JD.ED 06:12 → JD.MS 16:07
PROVIDERS: ADMIT Pediatrics; ATTEND Pediatrics
PROC: 5A09457 Assistance with Respiratory Ventilation, 24-96 Consecutive Hours, Continuous Positive Airway Pressure (ICD-10-PCS; principal; 2020-09-02)
DX: I48.91 Unspecified atrial fibrillation (principal); I50.33 Acute on chronic diastolic (congestive) heart failure; I21.A1 Myocardial infarction type 2; J96.10 Chronic respiratory failure, unspecified whether with hypoxia or hypercapnia; Z68.43 Body mass index [BMI] 50.0-59.9, adult; G47.33 Obstructive sleep apnea (adult) (pediatric); I13.0 Hypertensive heart and chronic kidney disease with heart failure and stage 1 through stage 4 chronic kidney disease, or unspecified chronic kidney disease; J84.10 Pulmonary fibrosis, unspecified; I50.9 Heart failure, unspecified; N18.32 Chronic kidney disease, stage 3b; E11.22 Type 2 diabetes mellitus with diabetic chronic kidney disease; J30.9 Allergic rhinitis, unspecified; D63.1 Anemia in chronic kidney disease; H54.7 Unspecified visual loss; E78.00 Pure hypercholesterolemia, unspecified; I27.20 Pulmonary hypertension, unspecified; G47.30 Sleep apnea, unspecified; R32 Unspecified urinary incontinence; I73.9 Peripheral vascular disease, unspecified; Z90.49 Acquired absence of other specified parts of digestive tract; J96.11 Chronic respiratory failure with hypoxia; Z99.89 Dependence on other enabling machines and devices; K21.9 Gastro-esophageal reflux disease without esophagitis; M19.90 Unspecified osteoarthritis, unspecified site; Z96.653 Presence of artificial knee joint, bilateral; Z89.411 Acquired absence of right great toe; M06.9 Rheumatoid arthritis, unspecified; F32.9 Major depressive disorder, single episode, unspecified; F41.9 Anxiety disorder, unspecified; E66.9 Obesity, unspecified; Z88.6 Allergy status to analgesic agent; Z88.8 Allergy status to other drugs, medicaments and biological substances; Z79.4 Long term (current) use of insulin; Z99.81 Dependence on supplemental oxygen; Z79.52 Long term (current) use of systemic steroids; Z79.899 Other long term (current) drug therapy; Z20.828 Contact with and (suspected) exposure to other viral communicable diseases
CPT/HCPCS: 36415; 71045; 80053; 81001; 82553 ×2; 83735; 83880; 84484 ×3; 85025; 85610; 85730; 87086; 93005 ×2; 96365; 96366; 96368; 96375; 96376; 99285; A9270 ×3; J1742 ×2; J1815; J1940; J3490 ×3; J7050; J7512; U0002; 80061; 82550; 82962; 83036; 84100; 84443; 86140; 93010; 94760; 97162-GP; 97530-GP; J1650

== ENCOUNTER 2020-10-16 11:26 | Inpatient (IN) | payer MEDICARE, BC ==
--- NOTE | 2020-10-16 12:16 | EDM.PDOC ---
ED HPI GENERAL MEDICAL PROBLEM - General Chief Complaint: Cardiovascular Problem Stated Complaint: SENT BY DR RAMIREZ NEEDS FLUID REMOVED Time Seen by Provider: 10/16/20 12:05 - History of Present Illness INITIAL COMMENTS - FREE TEXT/NARRATIVE: 80-year-old female sent over by Dr. Ramirez with anticipated admission for decompensated congestive heart failure. She is having worsening shortness of breath and worsening edema and significant weight gain this is been progressively getting worse since about . The patient has not had any chest pain or significant chest pressure. However, the patient has dyspnea on with exertion, she gets short of breath after walking just a few steps. Also she has been quite a bit weaker and since she has had to get around with the aid of a walker. She has worsening lower extremity edema. She is also noticed that she had a blister on the bottom of her foot that popped. Lower Leg Pain Score (Numeric/FACES): 3 - Related Data Allergies Allergy/AdvReac Type Severity Reaction Status Date / Time atorvastatin Allergy Cannot Verified 10/16/20 14:34 Remember fentanyl Allergy Respiratory Verified 10/16/20 14:34 Depression hydrocodone Allergy Respiratory Verified 10/16/20 14:34 Distress oxycodone [Oxycodone] Allergy Respiratory Verified 10/16/20 14:34 Distress tramadol Allergy Respiratory Verified 10/16/20 14:34 Distress Home Meds: Home Meds Magnesium 250 mg PO DAILY 05/07/14 [History] Furosemide [Lasix] 40 mg PO BID 03/08/16 [History] Dextrose [Glucose] 4 gm PO DAILY PRN 04/21/17 [History] Fish Oil/[place]-3 Fatty Acids [Fish Oil 1,000 MG] 1 cap PO DAILY 04/21/17 [History] Insulin Aspart [Novolog Flexpen] 10 unit SQ TID 04/21/17 [History] Lisinopril 20 mg PO DAILY 04/21/17 [History] Multivit,Calc,Mins/Iron/Folic [Thera-M] 1 each PO DAILY 04/21/17 [History] Ezetimibe [Zetia] 10 mg PO DAILY 05/09/18 [History] Omeprazole Magnesium [Prilosec Otc] 20 mg PO DAILY 05/09/18 [History] Pravastatin [Pravachol] 40 mg PO DAILY 05/09/18 [History] Ubidecarenone [Coq-10] 1 tab PO DAILY 05/09/18 [History] Leflunomide [Arava] 20 mg PO DAILY 05/30/19 [History] Metoprolol Tartrate [Lopressor] 50 mg PO BID 05/30/19 [History] Triamcinolone Acetonide [Triamcinolone Acetonide 0.1% Crm] 1 dose TOP BID PRN 05/30/19 [History] Insulin Glargine,Hum.Rec.Anlog [Basaglar Kwikpen U-100] 25 units SUBCUT BID 09/26/19 [History] Hydroxychloroquine [Plaquenil] 200 mg PO DAILY 09/02/20 [History] Apixaban [Eliquis] 5 mg PO BID #60 tablet 09/04/20 [Rx] Diltiazem [Dilacor XR] 240 mg PO DAILY #20 cap.er 09/04/20 [Rx] Acetaminophen [Tylenol] 650 mg PO Q6H PRN 10/16/20 [History] Ferrous Gluconate [Fergon] 1 tab PO DAILY 10/16/20 [History] LORazepam [Ativan] 0.5 mg PO QID PRN MDD predni 10/16/20 [History] predniSONE [Prednisone] 1 mg PO DAILY 10/16/20 [History] Past Medical History HEENT History: Reports: Allergic Rhinitis, Cataract, Impaired Vision Cardiovascular History: Reports: Afib, Arrhythmia, Heart Failure, Heart Murmur, High Cholesterol, Hypertension, [place], Pulmonary Hypertension, PVD Other Cardiovascular History: aortic stenosis, CHF, cor pulmonae, NSTEMI, aortic stenosis Respiratory History: Reports: Pneumonia, Recurrent, Sleep Apnea Other Respiratory History: pulmonary HTN, respiratory failure, hypoxemia, chronic o2 use at 2L per nasal canula during day, 6 L at night Gastrointestinal History: Reports: Chronic Constipation, Diverticulosis, Gastritis, GERD, Hemorrhoids, PUD Other Gastrointestinal History: Stomach ulcer, transaminitis, hemorrhagic gastritis Genitourinary History: Reports: Acute Renal Failure, Urinary Incontinence Other Genitourinary History: acute renal failure [employer] History: Reports: Musculoskeletal History: Reports: Osteoarthritis, RA Other Musculoskeletal History: knee pain Neurological History: Reports: None Psychiatric History: Reports: Anxiety, Depression Endocrine/Metabolic History: Reports: Diabetes, Type II, Obesity/BMI 30+ Hematologic History: Reports: Anemia Other Hematologic History: takes iron Immunologic History: Reports: None Oncologic (Cancer) History: Reports: None Dermatologic History: Reports: Cellulitis Other Dermatologic History: diabetic ulceration to left great toe - Infectious Disease History Infectious Disease History: Reports: Chicken Pox, Measles, Mumps, Rubella - Past Surgical History Head Surgeries/Procedures: Reports: None HEENT Surgical History: Reports: Cataract Surgery Cardiovascular Surgical History: Reports: None Respiratory Surgical History: Reports: None GI Surgical History: Reports: Appendectomy, Cholecystectomy, Colonoscopy, EGD, ERCP Female Surgical History: Reports: Breast Biopsy Endocrine Surgical History: Reports: None Neurological Surgical History: Reports: None Musculoskeletal Surgical History: Reports: Amputation, Carpal Tunnel, Knee Replacement Other Musculoskeletal Surgeries/Procedures:: Bilateral TKR, right great toe amputation Oncologic Surgical History: Reports: Biopsy of Breast Social & Family History - Family History Family Medical History: No Pertinent Family History - Tobacco Use Tobacco Use Status *Q: Never Tobacco User - Caffeine Use Caffeine Use: Reports: Coffee, Tea Caffeine Use Comment: 2 cups in the morning, and 1 cup in the afternoon - Recreational Drug Use Recreational Drug Use: No - Living Situation & Occupation Living situation: Reports: , with Family (Daughter) Occupation: Retired ED ROS GENERAL - Review of Systems Review Of Systems: See Below Constitutional: Reports: Weakness, Fatigue. Denies: Fever, Chills HEENT: Reports: No Symptoms Respiratory: Reports: Shortness of Breath, Pleuritic Chest Pain. Denies: Wheezing, Cough, Sputum, Hemoptysis Cardiovascular: Reports: Dyspnea on Exertion, Edema. Denies: No Symptoms Endocrine: Reports: No Symptoms GI/Abdominal: Reports: No Symptoms : Reports: No Symptoms Musculoskeletal: Reports: No Symptoms Skin: Reports: No Symptoms Neurological: Reports: No Symptoms Psychiatric: Reports: No Symptoms Hematologic/Lymphatic: Reports: No Symptoms Immunologic: Reports: No Symptoms ED EXAM, GENERAL - Physical Exam Exam: See Below Exam Limited By: No Limitations General Appearance: Alert, No Apparent Distress Eye Exam: Bilateral Eye: Normal Inspection Ears: Normal External Exam, Normal Canal, Hearing Grossly Normal, Normal TMs Nose: Normal Inspection, Normal Mucosa, No Blood Throat/Mouth: Normal Inspection, Normal Lips, Normal Teeth, Normal Gums, Normal Oropharynx, Normal Voice, No Airway Compromise Head: Atraumatic, Normocephalic Neck: Normal Inspection, Supple, Non-Tender, Full Range of Motion, Other (JVD is hard to assess in this patient because of body habitus). No: Lymphadenopathy (L), Lymphadenopathy (R) Respiratory/Chest: No Respiratory Distress, Crackles ( both lung bases decreasing up to the upper two thirds of the lung field). No: Lungs Clear Cardiovascular: No Murmur, Irregularly Irregular, Other (No significant marked edema) GI/Abdominal: Normal Bowel Sounds, Soft, Non-Tender Back Exam: Normal Inspection. No: CVA Tenderness (L), CVA Tenderness (R) Extremities: Pedal Edema (Nephric and edema all the way up her lower legs), Other (On the bottom of her right foot this blister area seems to have hyperkeratotic margins and is more consistent with perhaps an ischemic ulcer.) Neurological: Alert, Oriented, Normal Cognition Psychiatric: Normal Affect, Normal Mood. No: Anxious, Depressed Mood #1 Interpretation EKG Date: 10/16/20 Rhythm: A-Fib [place]: Normal P-Wave: Absent QRS: Other (IVCD) ST-T: Normal QT: Prolonged (Prolonged borderline) Comparison: Change From Previous EKG (Has developed an borderline interventricular conduction delay compared to EKG done 09/02/2020) EKG Interpretation Comments: Abnormal Course - Vital Signs Last Recorded V/S: Last Vital Signs Temp 36.5 C 10/16/20 11:51 Pulse 71 10/16/20 11:51 Resp 25 H 10/16/20 11:51 BP 152/74 H 10/16/20 11:51 Pulse Ox 95 10/16/20 11:51 - Orders/Labs/Meds Orders: Active Orders 24 hr Category Date Time Status Blood Glucose Check, Bedside [RC] ONETIME Care 10/16/20 12:24 Active EKG Documentation Completion [RC] STAT Care 10/16/20 12:43 Active EKG Documentation Completion [RC] STAT Care 10/16/20 14:15 Active Insert Rodriguez Catheter [Insert Urinary Catheter] [OM.PC] Care 10/16/20 14:35 Ordered Stat Urinary Catheter Assessment [RC] ASDIRECTED Care 10/16/20 14:35 Active Foot Comp Min 3V Rt [CR] Stat Exams 10/16/20 14:42 Taken MAGNESIUM [CHEM] Stat Lab 10/16/20 12:33 Received Nitroglycerin/D5W [Nitroglycerin 25 MG/D5W 250 ML] Med 10/16/20 14:30 Active 25 mg in 250 ml IV TITRATE Medication Orders Nitroglycerin/Dextrose (Nitroglycerin 25 Mg/D5w 250 Ml) 25 mg in 250 mls @ 3 mls/hr IV TITRATE [facility]; Protocol Last Admin: 10/16/20 14:35 Dose: 5 mcg/min, 3 mls/hr Documented by: SANDRA Labs: Laboratory Tests 10/16/20 10/16/20 10/16/20 Range/Units 12:33 12:33 12:33 WBC 9.41 (3.98-10.04) K/mm3 RBC 3.72 L (3.98-5.22) M/mm3 Hgb 10.6 L (11.2-15.7) gm/dl Hct 35.3 (34.1-44.9) % MCV 94.9 H (79.4-94.8) fl MCH 28.5 (25.6-32.2) pg MCHC 30.0 L (32.2-35.5) g/dl RDW Std Deviation 50.2 H (36.4-46.3) fL Plt Count 209 (182-369) K/mm3 MPV 10.6 (9.4-12.3) fl Neut % (Auto) 80.9 H (34.0-71.1) % Lymph % (Auto) 7.7 L (19.3-51.7) % [place] % (Auto) 10.3 (4.7-12.5) % Eos % (Auto) 0.7 (0.7-5.8) Baso % (Auto) 0.2 (0.1-1.2) % Neut # (Auto) 7.61 H (1.56-6.13) K/mm3 Lymph # (Auto) 0.72 L (1.18-3.74) K/mm3 [place] # (Auto) 0.97 H (0.24-0.36) K/mm3 Eos # (Auto) 0.07 (0.04-0.36) K/mm3 Baso # (Auto) 0.02 (0.01-0.08) K/mm3 Manual Slide Review Abnormal smear Sodium (136-145) mEq/L Potassium (3.5-5.1) mEq/L Chloride (98-107) mEq/L Carbon Dioxide (21-32) mEq/L Anion Gap (5-15) BUN (7-18) mg/dL Creatinine (0.55-1.02) mg/dL Est Cr Clr Drug Dosing mL/min Estimated GFR (MDRD) (>60) mL/min BUN/Creatinine Ratio (14-18) Glucose (83-115) mg/dL Calcium (8.5-10.1) mg/dL Total Bilirubin (0.2-1.0) mg/dL AST (15-37) U/L ALT (14-59) U/L Alkaline Phosphatase (46-116) U/L Troponin I < 0.017 (0.00-0.056) ng/mL NT-Pro-B Natriuret Pep 3283 H (0-450) pg/mL Total Protein (6.4-8.2) g/dl Albumin (3.4-5.0) g/dl Globulin gm/dL Albumin/Globulin Ratio (1-2) SARS-CoV-2 RNA (GWENDOLYN) (NEGATIVE) 10/16/20 10/16/20 Range/Units 12:33 13:10 WBC (3.98-10.04) K/mm3 RBC (3.98-5.22) M/mm3 Hgb (11.2-15.7) gm/dl Hct (34.1-44.9) % MCV (79.4-94.8) fl MCH (25.6-32.2) pg MCHC (32.2-35.5) g/dl RDW Std Deviation (36.4-46.3) fL Plt Count (182-369) K/mm3 MPV (9.4-12.3) fl Neut % (Auto) (34.0-71.1) % Lymph % (Auto) (19.3-51.7) % [place] % (Auto) (4.7-12.5) % Eos % (Auto) (0.7-5.8) Baso % (Auto) (0.1-1.2) % Neut # (Auto) (1.56-6.13) K/mm3 Lymph # (Auto) (1.18-3.74) K/mm3 [place] # (Auto) (0.24-0.36) K/mm3 Eos # (Auto) (0.04-0.36) K/mm3 Baso # (Auto) (0.01-0.08) K/mm3 Manual Slide Review Sodium 143 (136-145) mEq/L Potassium 4.7 (3.5-5.1) mEq/L Chloride 105 (98-107) mEq/L Carbon Dioxide 31 (21-32) mEq/L Anion Gap 11.7 (5-15) BUN 48 H (7-18) mg/dL Creatinine 1.5 H (0.55-1.02) mg/dL Est Cr Clr Drug Dosing 21.84 mL/min Estimated GFR (MDRD) 33 (>60) mL/min BUN/Creatinine Ratio 32.0 H (14-18) Glucose 139 H (83-115) mg/dL Calcium 9.3 (8.5-10.1) mg/dL Total Bilirubin 0.4 (0.2-1.0) mg/dL AST 21 (15-37) U/L ALT 31 (14-59) U/L Alkaline Phosphatase 93 (46-116) U/L Troponin I (0.00-0.056) ng/mL NT-Pro-B Natriuret Pep (0-450) pg/mL Total Protein 7.0 (6.4-8.2) g/dl Albumin 3.0 L (3.4-5.0) g/dl Globulin 4.0 gm/dL Albumin/Globulin Ratio 0.8 L (1-2) SARS-CoV-2 RNA (GWENDOLYN) Negative (NEGATIVE) Meds: Medications Generic Name Dose Route Start Last Admin Trade Name Freq PRN Reason Stop Dose Admin Nitroglycerin/Dextrose 25 mg in 250 mls @ 3 mls/hr 10/16/20 14:30 10/16/20 14:35 Nitroglycerin 25 Mg/D5w 250 Ml IV 5 mcg/min TITRATE CJ 3 mls/hr Administration Protocol 5 MCG/MIN Discontinued Medications Generic Name Dose Route Start Last Admin Trade Name Freq PRN Reason Stop Dose Admin Aspirin 324 mg 10/16/20 15:23 Aspirin PO 10/16/20 15:24 ONETIME ONE Furosemide 60 mg 10/16/20 13:14 10/16/20 13:22 Lasix IVPUSH 10/16/20 13:15 60 mg NOW ONE Administration - Re-Assessments/Exams Free Text/Narrative Re-Assessment/Exam: 10/16/20 15:09 Patient was initially evaluated she was started on Lasix anticipating admission she developed some mild chest discomfort EKG does not show any acute changes however her rate has increased slightly from the 70s to approximately 100. Repeat EKG will recheck a troponin in the future her initial troponin was negative. The patient mostly for her congestive heart failure be started on a nitro drip. She has already received 60 mg of IV Lasix her potassium was 4.5 on her presentation labs and we rechecked it was 4.7. Early on in the patient's care the case was discussed with Dr. Santo, our hospitalist, the patient will be placed in the ICU. I did discuss the patient's CODE STATUS with her and her daughter and she is a DNR. Departure - Departure Time of Disposition: 15:24 Disposition: Admitted As Inpatient 67 Clinical Impression: Heart failure Referrals: Abraham Ramirez MD [Primary Care Provider] - Forms: ED Department Discharge Sepsis Event Note (ED) - Evaluation Sepsis Screening Result: No Definite Risk - Focused Exam Vital Signs: Vital Signs Temp Pulse Resp BP Pulse Ox 10/16/20 11:51 36.5 C 71 25 H 152/74 H 95 - My Orders Last 24 Hours: My Active Orders 10/16/20 12:24 Blood Glucose Check, Bedside [RC] ONETIME 10/16/20 12:33 MAGNESIUM [CHEM] Stat 10/16/20 12:43 EKG Documentation Completion [RC] STAT 10/16/20 14:15 EKG Documentation Completion [RC] STAT 10/16/20 14:30 Nitroglycerin/D5W [Nitroglycerin 25 MG/D5W 250 ML] 25 mg in 250 ml IV TITRATE 10/16/20 14:35 Insert Rodriguez Catheter [Insert Urinary Catheter] [OM.PC] Stat Urinary Catheter Assessment [RC] ASDIRECTED 10/16/20 14:42 Foot Comp Min 3V Rt [CR] Stat - Assessment/Plan Last 24 Hours: My Active Orders 10/16/20 12:24 Blood Glucose Check, Bedside [RC] ONETIME 10/16/20 12:33 MAGNESIUM [CHEM] Stat 10/16/20 12:43 EKG Documentation Completion [RC] STAT 10/16/20 14:15 EKG Documentation Completion [RC] STAT 10/16/20 14:30 Nitroglycerin/D5W [Nitroglycerin 25 MG/D5W 250 ML] 25 mg in 250 ml IV TITRATE 10/16/20 14:35 Insert Rodriguez Catheter [Insert Urinary Catheter] [OM.PC] Stat Urinary Catheter Assessment [RC] ASDIRECTED 10/16/20 14:42 Foot Comp Min 3V Rt [CR] Stat
[2020-10-16] MEDS ORDERED: Furosemide 40 MG/4 ML VIAL IVPUSH ONE (13:14)
[2020-10-16] MEDS ORDERED: Nitroglycerin/D5W 25 MG/250 ML BOTTLE IV SCH (14:30)
[2020-10-16] MEDS ORDERED: Aspirin 81 MG Tab.Chew PO ONE (15:23)
[2020-10-16] MEDS ORDERED: Diltiazem 50 MG/10 ML SDV IVPUSH ONE ×2 (18:01→18:50)
[2020-10-16] MEDS: Diltiazem 100 MG in Sodium Chloride 0.9% 100 ML IV SCH (19:41)
[2020-10-16] MEDS ORDERED: Acetaminophen 325 MG Tab PO PRN (20:37)
[2020-10-16] MEDS ORDERED: INSULIN ASPART 10 UNIT SQ SCH (21:00)
[2020-10-16] MEDS ORDERED: Furosemide 100 MG in Sodium Chloride 0.9% 90 ML IV SCH (21:30)
[2020-10-16] MEDS: Insulin Glarg,Human.Rec.Analog 100 Unit/ML SUBCUT SCH (21:36)
[2020-10-16] MEDS: Apixaban 5 MG Tab PO SCH (21:42)
[2020-10-16] MEDS: Metoprolol Tartrate 50 MG Tab PO SCH (21:43)
--- NOTE | 2020-10-16 22:26 | PCM.HP.2 ---
H&P History of Present Illness - General Date of Service: 10/16/20 Admit Problem/Dx: Admission Diagnosis/Problem Admission Diagnosis/Problem Heart failure - History of Present Illness Initial Comments - Free Text/Narative: 80-year-old female with history of mixed heart failure presents to the emergency department after being seen by her primary care provider Dr. Ramirez for worsening shortness of breath, edema, and weight gain. Patient has been getting significantly worse since . She does not believe she is at any change in her diet. She was admitted here in August 2019 with atrial fibrillation with RVR. Patient was started on Cardizem and metoprolol. After discharge her metoprolol was increased, but she developed a rash which resolved after decreasing her metoprolol. Unfortunately, she has had worsening swelling and now has developed some mid chest pain. It started during the emergency visit in her back and then radiated into her center chest. She was started on nitroglycerin drip and transferred to the ICU. Patient had a increasing tachycardia with A. fib secondary to the nitroglycerin. Patient was placed on a Cardizem drip to improve rate control. Also a skin lesion, black area on the bottom of her foot was just found by her daughter today. She states she changes her socks every day and there was no discharge on her sock until today. She denies any pain, but she does have neuropathy. Lower Leg Pain Score (Numeric/FACES): 3 - Related Data Allergies/Adverse Reactions: Allergies Allergy/AdvReac Type Severity Reaction Status Date / Time atorvastatin Allergy Cannot Verified 10/16/20 14:34 Remember fentanyl Allergy Respiratory Verified 10/16/20 14:34 Depression hydrocodone Allergy Respiratory Verified 10/16/20 14:34 Distress oxycodone [Oxycodone] Allergy Respiratory Verified 10/16/20 14:34 Distress tramadol Allergy Respiratory Verified 10/16/20 14:34 Distress Home Medications: Home Meds Magnesium 250 mg PO DAILY 05/07/14 [History] Furosemide [Lasix] 40 mg PO BID 03/08/16 [History] Dextrose [Glucose] 4 gm PO DAILY PRN 04/21/17 [History] Fish Oil/[place]-3 Fatty Acids [Fish Oil 1,000 MG] 1 cap PO DAILY 04/21/17 [History] Insulin Aspart [Novolog Flexpen] 1 unit SQ TID 04/21/17 [History] Lisinopril 20 mg PO DAILY 04/21/17 [History] Multivit,Calc,Mins/Iron/Folic [Thera-M] 1 each PO DAILY 04/21/17 [History] Ezetimibe [Zetia] 10 mg PO DAILY 05/09/18 [History] Omeprazole Magnesium [Prilosec Otc] 20 mg PO DAILY 05/09/18 [History] Pravastatin [Pravachol] 40 mg PO DAILY 05/09/18 [History] Ubidecarenone [Coq-10] 1 tab PO DAILY 05/09/18 [History] Leflunomide [Arava] 20 mg PO DAILY 05/30/19 [History] Metoprolol Tartrate [Lopressor] 50 mg PO BID 05/30/19 [History] Triamcinolone Acetonide [Triamcinolone Acetonide 0.1% Crm] 1 dose TOP BID PRN 05/30/19 [History] Insulin Glargine,Hum.Rec.Anlog [Basaglar Kwikpen U-100] 25 units SUBCUT BID 09/26/19 [History] Hydroxychloroquine [Plaquenil] 200 mg PO DAILY 09/02/20 [History] Apixaban [Eliquis] 5 mg PO BID #60 tablet 09/04/20 [Rx] Diltiazem [Dilacor XR] 240 mg PO DAILY #20 cap.er 09/04/20 [Rx] Acetaminophen [Tylenol] 325 mg PO Q6H PRN 10/16/20 [History] Ferrous Gluconate [Fergon] 1 tab PO DAILY 10/16/20 [History] LORazepam [Ativan] 0.5 mg PO QID PRN 10/16/20 [History] predniSONE [Prednisone] 1 mg PO DAILY 10/16/20 [History] Past Medical History HEENT History: Reports: Allergic Rhinitis, Cataract, Impaired Vision Cardiovascular History: Reports: Afib, Arrhythmia, Heart Failure, Heart Murmur, High Cholesterol, Hypertension, SD, Pulmonary Hypertension, PVD Other Cardiovascular History: aortic stenosis, CHF, cor pulmonae, NSTEMI, aortic stenosis Respiratory History: Reports: Pneumonia, Recurrent, Sleep Apnea Other Respiratory History: pulmonary HTN, respiratory failure, hypoxemia, chronic o2 use at 2L per nasal canula during day, 6 L at night Gastrointestinal History: Reports: Chronic Constipation, Diverticulosis, Gastritis, GERD, Hemorrhoids, PUD Other Gastrointestinal History: Stomach ulcer, transaminitis, hemorrhagic gastritis Genitourinary History: Reports: Acute Renal Failure, Urinary Incontinence Other Genitourinary History: acute renal failure [employer]ATION History: Reports: Musculoskeletal History: Reports: Osteoarthritis, RA Other Musculoskeletal History: knee pain Neurological History: Reports: None Psychiatric History: Reports: Anxiety, Depression Endocrine/Metabolic History: Reports: Diabetes, Type II, Obesity/BMI 30+ Hematologic History: Reports: Anemia Other Hematologic History: takes iron Immunologic History: Reports: None Oncologic (Cancer) History: Reports: None Dermatologic History: Reports: Cellulitis Other Dermatologic History: diabetic ulceration to left great toe - Infectious Disease History Infectious Disease History: Reports: Chicken Pox, Measles, Mumps, Rubella - Past Surgical History Head Surgeries/Procedures: Reports: None HEENT Surgical History: Reports: Cataract Surgery Cardiovascular Surgical History: Reports: None Respiratory Surgical History: Reports: None GI Surgical History: Reports: Appendectomy, Cholecystectomy, Colonoscopy, EGD, ERCP Female Surgical History: Reports: Breast Biopsy Endocrine Surgical History: Reports: None Neurological Surgical History: Reports: None Musculoskeletal Surgical History: Reports: Amputation, Carpal Tunnel, Knee Replacement Other Musculoskeletal Surgeries/Procedures:: Bilateral TKR, right great toe amputation Oncologic Surgical History: Reports: Biopsy of Breast Social & Family History - Family History Family Medical History: No Pertinent Family History - Tobacco Use Tobacco Use Status *Q: Never Tobacco User - Caffeine Use Caffeine Use: Reports: Coffee, Tea Caffeine Use Comment: 2 cups in the morning, and 1 cup in the afternoon - Recreational Drug Use Recreational Drug Use: No - Living Situation & Occupation Living situation: Reports: , with Family (Daughter) Occupation: Retired H&P Review of Systems - Review of Systems: Review Of Systems: Comprehensive ROS is negative, except as noted in HPI. Exam - Exam Exam: See Below - Vital Signs Vital Signs: Last Vital Signs Temp 98 F 10/16/20 20:00 Pulse 100 10/16/20 22:00 Resp 19 10/16/20 21:00 BP 134/87 10/16/20 22:00 Pulse Ox 100 10/16/20 21:00 Weight: 286 lb - Exam Quality Assessment: Supplemental Oxygen General: Alert, Oriented, 4 HEENT: Conjunctiva Clear, EACs Clear, Hearing Intact, Mucosa Moist & [place], Normal Nasal Septum Neck: Supple, Trachea Midline, 2 Lungs: Decreased Breath Sounds, Crackles (Scattered). No: Normal Respiratory Effort (Creased respiratory rate and effort), Wheezing Cardiovascular: Irregular Rhythm (Rhythm) GI/Abdominal Exam: Normal Bowel Sounds, Soft, Non-Tender, No Organomegaly, No Distention, No Abnormal Bruit, No Mass Back Exam: Normal Inspection Extremities: Normal Inspection, Normal Capillary Refill, Pedal Edema (2+), Other (Black square lesion on the bottom of the right foot with mild erythema surrounding. No discharge.) Peripheral Pulses: 1+: Posterior Tibial (L), Posterior Tibial (R), Dorsalis Pedis (L), Dorsalis Pedis (R) Skin: Warm, Dry, Intact DTR: 1+: Patella (L), Patella (R), Achilles (L), Achilles (R) Psychiatric: Alert, Normal Affect, Normal Mood - Patient Data Lab Results Last 24 hrs: Laboratory Results - last 24 hr 10/16/20 10/16/20 10/16/20 Range/Units 12:33 12:33 12:33 WBC 9.41 (3.98-10.04) K/mm3 RBC 3.72 L (3.98-5.22) M/mm3 Hgb 10.6 L (11.2-15.7) gm/dl Hct 35.3 (34.1-44.9) % MCV 94.9 H (79.4-94.8) fl MCH 28.5 (25.6-32.2) pg MCHC 30.0 L (32.2-35.5) g/dl RDW Std Deviation 50.2 H (36.4-46.3) fL Plt Count 209 (182-369) K/mm3 MPV 10.6 (9.4-12.3) fl Neut % (Auto) 80.9 H (34.0-71.1) % Lymph % (Auto) 7.7 L (19.3-51.7) % Crowley % (Auto) 10.3 (4.7-12.5) % Eos % (Auto) 0.7 (0.7-5.8) Baso % (Auto) 0.2 (0.1-1.2) % Neut # (Auto) 7.61 H (1.56-6.13) K/mm3 Lymph # (Auto) 0.72 L (1.18-3.74) K/mm3 Crowley # (Auto) 0.97 H (0.24-0.36) K/mm3 Eos # (Auto) 0.07 (0.04-0.36) K/mm3 Baso # (Auto) 0.02 (0.01-0.08) K/mm3 Manual Slide Review Abnormal smear Sodium (136-145) mEq/L Potassium (3.5-5.1) mEq/L Chloride (98-107) mEq/L Carbon Dioxide (21-32) mEq/L Anion Gap (5-15) BUN (7-18) mg/dL Creatinine (0.55-1.02) mg/dL Est Cr Clr Drug Dosing mL/min Estimated GFR (MDRD) (>60) mL/min BUN/Creatinine Ratio (14-18) Glucose (83-115) mg/dL POC Glucose (83-110) mg/dL Calcium (8.5-10.1) mg/dL Magnesium (1.8-2.4) mg/dl Total Bilirubin (0.2-1.0) mg/dL AST (15-37) U/L ALT (14-59) U/L Alkaline Phosphatase (46-116) U/L Troponin I < 0.017 (0.00-0.056) ng/mL NT-Pro-B Natriuret Pep 3283 H (0-450) pg/mL Total Protein (6.4-8.2) g/dl Albumin (3.4-5.0) g/dl Globulin gm/dL Albumin/Globulin Ratio (1-2) Urine Color (Yellow) Urine Appearance (Clear) Urine pH (5.0-8.0) Ur Specific Benedict (1.005-1.030) Urine Protein (Negative) Urine Glucose (UA) (Negative) Urine Ketones (Negative) Urine Occult Blood (Negative) Urine Nitrite (Negative) Urine Bilirubin (Negative) Urine Urobilinogen (0.2-1.0) Ur Leukocyte Esterase (Negative) Urine RBC (0-5) /hpf Urine WBC (0-5) /hpf Ur Squamous Epith Cells (0-5) /hpf Urine Bacteria (FEW) /hpf Urine Mucus (FEW) /hpf SARS-CoV-2 RNA (GWENDOLYN) (NEGATIVE) 10/16/20 10/16/20 10/16/20 Range/Units 12:33 12:33 13:10 WBC (3.98-10.04) K/mm3 RBC (3.98-5.22) M/mm3 Hgb (11.2-15.7) gm/dl Hct (34.1-44.9) % MCV (79.4-94.8) fl MCH (25.6-32.2) pg MCHC (32.2-35.5) g/dl RDW Std Deviation (36.4-46.3) fL Plt Count (182-369) K/mm3 MPV (9.4-12.3) fl Neut % (Auto) (34.0-71.1) % Lymph % (Auto) (19.3-51.7) % Crowley % (Auto) (4.7-12.5) % Eos % (Auto) (0.7-5.8) Baso % (Auto) (0.1-1.2) % Neut # (Auto) (1.56-6.13) K/mm3 Lymph # (Auto) (1.18-3.74) K/mm3 Crowley # (Auto) (0.24-0.36) K/mm3 Eos # (Auto) (0.04-0.36) K/mm3 Baso # (Auto) (0.01-0.08) K/mm3 Manual Slide Review Sodium 143 (136-145) mEq/L Potassium 4.7 (3.5-5.1) mEq/L Chloride 105 (98-107) mEq/L Carbon Dioxide 31 (21-32) mEq/L Anion Gap 11.7 (5-15) BUN 48 H (7-18) mg/dL Creatinine 1.5 H (0.55-1.02) mg/dL Est Cr Clr Drug Dosing 21.84 mL/min Estimated GFR (MDRD) 33 (>60) mL/min BUN/Creatinine Ratio 32.0 H (14-18) Glucose 139 H (83-115) mg/dL POC Glucose (83-110) mg/dL Calcium 9.3 (8.5-10.1) mg/dL Magnesium 2.1 (1.8-2.4) mg/dl Total Bilirubin 0.4 (0.2-1.0) mg/dL AST 21 (15-37) U/L ALT 31 (14-59) U/L Alkaline Phosphatase 93 (46-116) U/L Troponin I (0.00-0.056) ng/mL NT-Pro-B Natriuret Pep (0-450) pg/mL Total Protein 7.0 (6.4-8.2) g/dl Albumin 3.0 L (3.4-5.0) g/dl Globulin 4.0 gm/dL Albumin/Globulin Ratio 0.8 L (1-2) Urine Color (Yellow) Urine Appearance (Clear) Urine pH (5.0-8.0) Ur Specific [place] (1.005-1.030) Urine Protein (Negative) Urine Glucose (UA) (Negative) Urine Ketones (Negative) Urine Occult Blood (Negative) Urine Nitrite (Negative) Urine Bilirubin (Negative) Urine Urobilinogen (0.2-1.0) Ur Leukocyte Esterase (Negative) Urine RBC (0-5) /hpf Urine WBC (0-5) /hpf Ur Squamous Epith Cells (0-5) /hpf Urine Bacteria (FEW) /hpf Urine Mucus (FEW) /hpf SARS-CoV-2 RNA (GWENDOLYN) Negative (NEGATIVE) 10/16/20 10/16/20 10/16/20 Range/Units 15:40 17:38 18:26 WBC (3.98-10.04) K/mm3 RBC (3.98-5.22) M/mm3 Hgb (11.2-15.7) gm/dl Hct (34.1-44.9) % MCV (79.4-94.8) fl MCH (25.6-32.2) pg MCHC (32.2-35.5) g/dl RDW Std Deviation (36.4-46.3) fL Plt Count (182-369) K/mm3 MPV (9.4-12.3) fl Neut % (Auto) (34.0-71.1) % Lymph % (Auto) (19.3-51.7) % Crowley % (Auto) (4.7-12.5) % Eos % (Auto) (0.7-5.8) Baso % (Auto) (0.1-1.2) % Neut # (Auto) (1.56-6.13) K/mm3 Lymph # (Auto) (1.18-3.74) K/mm3 Crow[place] # (Auto) (0.24-0.36) K/mm3 Eos # (Auto) (0.04-0.36) K/mm3 Baso # (Auto) (0.01-0.08) K/mm3 Manual Slide Review Sodium (136-145) mEq/L Potassium (3.5-5.1) mEq/L Chloride (98-107) mEq/L Carbon Dioxide (21-32) mEq/L Anion Gap (5-15) BUN (7-18) mg/dL Creatinine (0.55-1.02) mg/dL Est Cr Clr Drug Dosing mL/min Estimated GFR (MDRD) (>60) mL/min BUN/Creatinine Ratio (14-18) Glucose (83-115) mg/dL POC Glucose 90 (83-110) mg/dL Calcium (8.5-10.1) mg/dL Magnesium (1.8-2.4) mg/dl Total Bilirubin (0.2-1.0) mg/dL AST (15-37) U/L ALT (14-59) U/L Alkaline Phosphatase (46-116) U/L Troponin I < 0.017 (0.00-0.056) ng/mL NT-Pro-B Natriuret Pep (0-450) pg/mL Total Protein (6.4-8.2) g/dl Albumin (3.4-5.0) g/dl Globulin gm/dL Albumin/Globulin Ratio (1-2) Urine Color Yellow (Yellow) Urine Appearance Clear (Clear) Urine pH 6.0 (5.0-8.0) Ur Specific [place] 1.020 (1.005-1.030) Urine Protein Negative (Negative) Urine Glucose (UA) Negative (Negative) Urine Ketones Negative (Negative) Urine Occult Blood Negative (Negative) Urine Nitrite Negative (Negative) Urine Bilirubin Negative (Negative) Urine Urobilinogen 0.2 (0.2-1.0) Ur Leukocyte Esterase Negative (Negative) Urine RBC 0-5 (0-5) /hpf Urine WBC 0-5 (0-5) /hpf Ur Squamous Epith Cells 0-5 (0-5) /hpf Urine Bacteria Few (FEW) /hpf Urine Mucus Few (FEW) /hpf SARS-CoV-2 RNA (GWENDOLYN) (NEGATIVE) 10/16/20 Range/Units 21:36 WBC (3.98-10.04) K/mm3 RBC (3.98-5.22) M/mm3 Hgb (11.2-15.7) gm/dl Hct (34.1-44.9) % MCV (79.4-94.8) fl MCH (25.6-32.2) pg MCHC (32.2-35.5) g/dl RDW Std Deviation (36.4-46.3) fL Plt Count (182-369) K/mm3 MPV (9.4-12.3) fl Neut % (Auto) (34.0-71.1) % Lymph % (Auto) (19.3-51.7) % Crowley % (Auto) (4.7-12.5) % Eos % (Auto) (0.7-5.8) Baso % (Auto) (0.1-1.2) % Neut # (Auto) (1.56-6.13) K/mm3 Lymph # (Auto) (1.18-3.74) K/mm3 [place] # (Auto) (0.24-0.36) K/mm3 Eos # (Auto) (0.04-0.36) K/mm3 Baso # (Auto) (0.01-0.08) K/mm3 Manual Slide Review Sodium (136-145) mEq/L Potassium (3.5-5.1) mEq/L Chloride (98-107) mEq/L Carbon Dioxide (21-32) mEq/L Anion Gap (5-15) BUN (7-18) mg/dL Creatinine (0.55-1.02) mg/dL Est Cr Clr Drug Dosing mL/min Estimated GFR (MDRD) (>60) mL/min BUN/Creatinine Ratio (14-18) Glucose (83-115) mg/dL POC Glucose 130 H (83-110) mg/dL Calcium (8.5-10.1) mg/dL Magnesium (1.8-2.4) mg/dl Total Bilirubin (0.2-1.0) mg/dL AST (15-37) U/L ALT (14-59) U/L Alkaline Phosphatase (46-116) U/L Troponin I (0.00-0.056) ng/mL NT-Pro-B Natriuret Pep (0-450) pg/mL Total Protein (6.4-8.2) g/dl Albumin (3.4-5.0) g/dl Globulin gm/dL Albumin/Globulin Ratio (1-2) Urine Color (Yellow) Urine Appearance (Clear) Urine pH (5.0-8.0) Ur Specific [place] (1.005-1.030) Urine Protein (Negative) Urine Glucose (UA) (Negative) Urine Ketones (Negative) Urine Occult Blood (Negative) Urine Nitrite (Negative) Urine Bilirubin (Negative) Urine Urobilinogen (0.2-1.0) Ur Leukocyte Esterase (Negative) Urine RBC (0-5) /hpf Urine WBC (0-5) /hpf Ur Squamous Epith Cells (0-5) /hpf Urine Bacteria (FEW) /hpf Urine Mucus (FEW) /hpf SARS-CoV-2 RNA (GWENDOLYN) (NEGATIVE) Result Diagrams: 10/17/20 04:25 10/17/20 04:25 Sepsis Event Note - Evaluation Sepsis Screening Result: No Definite Risk - Focused Exam Vital Signs: Vital Signs Temp Pulse Pulse Resp BP BP BP 10/16/20 22:00 100 134/87 10/16/20 21:43 113 H 114/53 L 10/16/20 21:00 76 19 114/53 L 10/16/20 20:00 98 F 114 H 22 H 145/78 H 10/16/20 17:15 97.5 F 113 H 24 H 150/88 H 10/16/20 11:51 97.7 F 71 25 H 152/74 H Pulse Ox 10/16/20 22:00 10/16/20 21:43 10/16/20 21:00 100 10/16/20 20:00 100 10/16/20 17:15 96 10/16/20 11:51 95 - Problem List (1) Acute exacerbation of congestive heart failure SNOMED Code(s): 905269029, 75622317304860 ICD Code: I50.9 - HEART FAILURE, UNSPECIFIED Status: Acute Current Visit: Yes (2) Anemia SNOMED Code(s): 772886731 ICD Code: D64.9 - ANEMIA, UNSPECIFIED Status: Chronic Priority: Medium Current Visit: No Qualifiers: Anemia type: due to chronic kidney disease Chronic kidney disease stage 3 subtype: stage 3b (GFR 30-44) (3) Chronic renal insufficiency, stage III (moderate) SNOMED Code(s): 506616585 ICD Code: N18.30 - CHRONIC KIDNEY DISEASE, STAGE 3 UNSPECIFIED Status: Chronic Priority: Medium Current Visit: No Onset Date: ~09/02/20 (4) Diabetes mellitus type 2 in obese SNOMED Code(s): 48136175 ICD Code: E11.69 - TYPE 2 DIABETES MELLITUS WITH OTHER SPECIFIED COMPLICATION; E66.9 - OBESITY, UNSPECIFIED Status: Chronic Priority: High Current Visit: No Onset Date: ~09/02/20 (5) Atrial fibrillation with rapid ventricular response SNOMED Code(s): 343780866703217 ICD Code: I48.91 - UNSPECIFIED ATRIAL FIBRILLATION Status: Resolved Priority: High Current Visit: No Onset Date: ~09/02/20 Problem List Initiated/Reviewed/Updated: Yes Orders Last 24hrs: Active Orders 24 hr Category Date Time Status Admission Status [Patient Status] [ADT] Routine ADT 10/16/20 15:34 Active Blood Glucose Check, Bedside [RC] QIDACANDBED Care 10/16/20 12:24 Active Insert Rodriguez Catheter [Insert Urinary Catheter] [OM.PC] Care 10/16/20 14:35 Ordered Stat Urinary Catheter Assessment [RC] Q4HR Care 10/16/20 14:35 Active Heart Healthy Diet [DIET] Diet 10/17/20 Breakfast Active Foot Comp Min 3V Rt [CR] Stat Exams 10/16/20 14:42 Taken Acetaminophen [TylenoL] Med 10/16/20 20:37 Active 650 mg PO Q6H PRN Apixaban [Eliquis] Med 10/16/20 21:00 Active 5 mg PO BID Dextrose [Glucose] Med 10/16/20 20:37 Ordered 4 gm PO DAILY PRN Diltiazem [Cardizem] 100 mg Med 10/16/20 19:15 Active Sodium Chloride 0.9% [Normal Saline] 100 ml IV TITRATE Diltiazem [Dilacor XR] Med 10/17/20 09:00 Ordered 240 mg PO DAILY Ezetimibe [Zetia] Med 10/17/20 09:00 Active 10 mg PO DAILY Ferrous Gluconate [Fergon] Med 10/17/20 09:00 Ordered 1 tab PO DAILY Furosemide [Lasix] 100 mg Med 10/16/20 21:30 Active Sodium Chloride 0.9% [Normal Saline] 90 ml IV TITRATE Hydroxychloroquine [Plaquenil] Med 10/17/20 09:00 Active 200 mg PO DAILY Insulin Aspart Med 10/16/20 21:00 Ordered 10 unit SQ TID Insulin Glarg,Human.Rec.Analog [LantUS] Med 10/16/20 21:00 Active 25 unit SUBCUT BID LORazepam [Ativan] Med 10/16/20 20:45 Active 0.5 mg PO QID PRN Leflunomide Med 10/17/20 09:00 Pending 20 mg PO DAILY Magnesium [Magnesium] Med 10/17/20 09:00 Ordered 250 mg PO DAILY Metoprolol Tartrate [Lopressor] Med 10/16/20 21:00 Active 50 mg PO BID Multivit,Calc,Mins/Iron/Folic [Thera-M] Med 10/17/20 09:00 Ordered 1 each PO DAILY Omeprazole Magnesium [Prilosec Otc] Med 10/17/20 09:00 Ordered 20 mg PO DAILY Pravastatin Med 10/17/20 09:00 Ordered 40 mg PO DAILY lisinopriL [Prinivil] Med 10/17/20 09:00 Active 20 mg PO DAILY predniSONE Med 10/17/20 09:00 Ordered 1 mg PO DAILY Resuscitation Status Routine Resus Stat 10/16/20 18:33 Ordered Medication Orders Acetaminophen (Tylenol) 650 mg PO Q6H PRN PRN Reason: Pain (mild 1-3) Apixaban (Eliquis) 5 mg PO BID [facility] Last Admin: 10/16/20 21:42 Dose: 5 mg Documented by: YARI Diltiazem HCl (Dilacor Xr) 240 mg PO DAILY [facility] Ezetimibe (Zetia) 10 mg PO DAILY [facility] Hydroxychloroquine Sulfate (Plaquenil) 200 mg PO DAILY [facility] Diltiazem HCl 100 mg/ Sodium (Chloride) 100 mls @ 5 mls/hr IV TITRATE [facility]; Protocol Last Titration: 10/16/20 20:42 Dose: 15 mg/hr, 15 mls/hr Documented by: Titration: 10/16/20 20:16 Dose: 10 mg/hr, 10 mls/hr Documented by: Admin: 10/16/20 19:41 Dose: 5 mg/hr, 5 mls/hr Documented by: YARI Furosemide 100 mg/ Sodium (Chloride) 100 mls @ 5 mls/hr IV TITRATE [facility]; Protocol Insulin Glargine (Lantus) 25 unit SUBCUT BID [facility] Last Admin: 10/16/20 21:36 Dose: 25 units Documented by: YARI Lisinopril (Prinivil) 20 mg PO DAILY [facility] Lorazepam (Ativan) 0.5 mg PO QID PRN PRN Reason: Anxiety Metoprolol Tartrate (Lopressor) 50 mg PO BID [facility] Last Admin: 10/16/20 21:43 Dose: 50 mg Documented by: YARI Non-Formulary Medication (Dextrose [Glucose]) 4 gm PO DAILY PRN PRN Reason: Hypoglycemia Non-Formulary Medication (Ferrous Gluconate [Fergon]) 1 tab PO DAILY [facility] Non-Formulary Medication (Insulin Aspart) 10 unit SQ TID [facility] Non-Formulary Medication (Leflunomide) 20 mg PO DAILY [facility] Non-Formulary Medication (Magnesium [Magnesium]) 250 mg PO DAILY [facility] Non-Formulary Medication (Multivit,Calc,Mins/Iron/Folic [Thera-M]) 1 each PO DAILY [facility] Non-Formulary Medication (Omeprazole Magnesium [Prilosec Otc]) 20 mg PO DAILY [facility] Non-Formulary Medication (Pravastatin) 40 mg PO DAILY [facility] Prednisone (Prednisone) 1 mg PO DAILY [facility] Assessment/Plan Comment:: Assessment 80-year-old female with history of new onset A. fib in August 2020 and worsening heart failure since . * In the emergency department patient was found To be in rate controlled atrial fibrillation with a rate of 73 and nonspecific T wave abnormalities. There was a prolonged QT interval. Patient was then started on nitroglycerin for shortness of breath and chest pain. Unfortunately, patient did develop tachycardia and had to have nitroglycerin stopped when she presented to the ICU. * Lasix 60 mg IV in the emergency department. * EKG on 09/22/2020: Rhythm is atrial fibrillation. Left ventricular systolic function was at the low normal of 50 to 55%. Left ventricle mild to moderately increased concentric hypertrophy. Mitral valve regurgitation appears moderate. Left atrium is mild to moderately dilated * Troponin normal at less than 0.017 * BNP 3283 Type 2 diabetes, insulin-dependent. Diabetic neuropathy Diabetic foot ulcer * Hemoglobin A1c was 6.60 on 09/04/2020. 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 Titrate to urine output between 100 - 200 ml/h * Hold evening metoprolol and restart in the morning if rate controlled and heart failure is improved * Restart Cardizem CD 240 mg in the morning if rate control * Not rate controlled consider digoxin in the morning. * When patient is normovolemic and back on her home medications I would recommend monitoring for 12 to 24 hours to see if she needs adjustment to her rate medications. * Strict I's and O's and daily weights * VTE prophylaxis with Eliquis * CODE STATUS DNR/DNI - Mortality Measure Prognosis:: Poor
[2020-10-16] MEDS: FUROSEMIDE IV SCH (22:30)
[2020-10-16] MEDS: NORMAL SALINE IV SCH (22:30)
[2020-10-17] MEDS: Diltiazem 100 MG in Sodium Chloride 0.9% 100 ML IV SCH (02:12)
[2020-10-17] MEDS ORDERED: Pantoprazole 40 MG Tab.CR PO SCH (06:00)
[2020-10-17] MEDS: FUROSEMIDE IV SCH ×2 (06:15→13:12)
[2020-10-17] MEDS: NORMAL SALINE IV SCH ×2 (06:15→13:12)
[2020-10-17] MEDS ORDERED: predniSONE 1 MG Tab PO SCH (07:00)
[2020-10-17] MEDS: Multivitamins,Therapeutic Tab PO SCH (08:07)
[2020-10-17] MEDS: Hydroxychloroquine 200 MG Tab PO SCH (08:07)
[2020-10-17] MEDS: Pantoprazole 40 MG Tab.CR PO SCH (08:07)
[2020-10-17] MEDS: Ezetimibe 10 MG Tab PO SCH ×3 (08:07→21:02)
[2020-10-17] MEDS: Magnesium Oxide 400 MG Tab PO SCH (08:07)
[2020-10-17] MEDS: predniSONE 1 MG Tab PO SCH (08:07)
[2020-10-17] MEDS: Apixaban 5 MG Tab PO SCH ×2 (08:08→20:41)
[2020-10-17] MEDS: Metoprolol Tartrate 50 MG Tab PO SCH ×2 (08:08→20:43)
[2020-10-17] MEDS: Insulin Glarg,Human.Rec.Analog 100 Unit/ML SUBCUT SCH ×2 (08:08→20:37)
[2020-10-17] MEDS ORDERED: FERROUS GLUCONATE PO SCH (09:00)
[2020-10-17] MEDS ORDERED: Non-Formulary Medication 1 Each (Magnesium [Magnesium] 250 MG) PO SCH (09:00)
[2020-10-17] MEDS ORDERED: Non-Formulary Medication 1 Each (Omeprazole Magnesium [Prilosec Otc] 20 MG) PO SCH (09:00)
[2020-10-17] MEDS ORDERED: Glucose Gel 15 GM in 37.5 GM Tube PO PRN (09:03)
[2020-10-17] MEDS: Lisinopril 20 MG Tab PO SCH (09:24)
[2020-10-17] MEDS: Diltiazem 240 MG Cap.ER PO SCH (09:24)
[2020-10-17] MEDS: LEFLUNOMIDE 20 MG PO SCH (11:43)
--- NOTE | 2020-10-17 15:07 | CR ---
Right foot: 3 views of the right foot were obtained.w Comparison: No prior foot study is available. Findings: Diffuse joint space narrowing is seen within the tibiotalar joint as well as within the midfoot and hindfoot. Degenerative change is also seen within the toes. Bony structures are osteopenic. Plantar spur is noted. Spur is noted at the attachment of the Achilles tendon. No definite erosions are seen. Diffuse soft tissue swelling is noted. Vascular calcification is also noted. Impression: 1. Diffuse degenerative change. 2. Soft tissue swelling presumably from cellulitis. 3. No acute bony abnormality is definitely appreciated. Diagnostic code #3
--- NOTE | 2020-10-17 18:10 | PCM.PN ---
- General Info Date of Service: 10/17/20 Admission Dx/Problem (Free Text): Admission Diagnosis/Problem Admission Diagnosis/Problem Heart failure Subjective Update: Patient is doing much better today. She is without chest pain, rate is controlled, and she has had negative fluid balance and weight loss. - Review of Systems General: Reports: No Symptoms HEENT: Reports: No Symptoms Pulmonary: Reports: No Symptoms Cardiovascular: Reports: No Symptoms Gastrointestinal: Reports: No Symptoms Musculoskeletal: Reports: No Symptoms - Patient Data Vitals - Most Recent: Last Vital Signs Temp 97.3 F 10/17/20 16:00 Pulse 88 10/17/20 16:00 Resp 20 10/17/20 16:00 BP 121/52 L 10/17/20 16:00 Pulse Ox 98 10/17/20 17:47 Weight - Most Recent: 285 lb 3.2 oz I&O - Last 24 Hours: Intake & Output 10/17/20 10/17/20 10/17/20 06:59 14:59 22:59 Intake Total 374 1840 469 Output Total 590 975 125 Balance -216 865 344 Imaging Impressions - Last 24 Hours: X-ray left foot shows changes consistent with cellulitis Lab Results Last 24 Hours: Laboratory Results - last 24 hr 10/16/20 10/16/20 10/16/20 Range/Units 12:33 17:38 18:26 WBC (3.98-10.04) K/mm3 RBC (3.98-5.22) M/mm3 Hgb (11.2-15.7) gm/dl Hct (34.1-44.9) % MCV (79.4-94.8) fl MCH (25.6-32.2) pg MCHC (32.2-35.5) g/dl RDW Std Deviation (36.4-46.3) fL Plt Count (182-369) K/mm3 MPV (9.4-12.3) fl Neut % (Auto) (34.0-71.1) % Lymph % (Auto) (19.3-51.7) % [place] % (Auto) (4.7-12.5) % Eos % (Auto) (0.7-5.8) Baso % (Auto) (0.1-1.2) % Neut # (Auto) (1.56-6.13) K/mm3 Lymph # (Auto) (1.18-3.74) K/mm3 [place] # (Auto) (0.24-0.36) K/mm3 Eos # (Auto) (0.04-0.36) K/mm3 Baso # (Auto) (0.01-0.08) K/mm3 Manual Slide Review Sodium (136-145) mEq/L Potassium (3.5-5.1) mEq/L Chloride (98-107) mEq/L Carbon Dioxide (21-32) mEq/L Anion Gap (5-15) BUN (7-18) mg/dL Creatinine (0.55-1.02) mg/dL Est Cr Clr Drug Dosing mL/min Estimated GFR (MDRD) (>60) mL/min BUN/Creatinine Ratio (14-18) Glucose (83-115) mg/dL POC Glucose 153 H 90 (83-110) mg/dL Calcium (8.5-10.1) mg/dL Phosphorus (2.6-4.7) mg/dL Magnesium (1.8-2.4) mg/dl Total Bilirubin (0.2-1.0) mg/dL AST (15-37) U/L ALT (14-59) U/L Alkaline Phosphatase (46-116) U/L Troponin I < 0.017 (0.00-0.056) ng/mL C-Reactive Protein (<1.0) mg/dL Total Protein (6.4-8.2) g/dl Albumin (3.4-5.0) g/dl Globulin gm/dL Albumin/Globulin Ratio (1-2) TSH 3rd Generation (0.358-3.74) uIU/mL 10/16/20 10/17/20 10/17/20 Range/Units 21:36 04:25 04:25 WBC 6.65 (3.98-10.04) K/mm3 RBC 3.07 L (3.98-5.22) M/mm3 Hgb 8.8 L D (11.2-15.7) gm/dl Hct 29.3 L (34.1-44.9) % MCV 95.4 H (79.4-94.8) fl MCH 28.7 (25.6-32.2) pg MCHC 30.0 L (32.2-35.5) g/dl RDW Std Deviation 50.5 H (36.4-46.3) fL Plt Count 175 L (182-369) K/mm3 MPV 10.5 (9.4-12.3) fl Neut % (Auto) 72.0 H (34.0-71.1) % Lymph % (Auto) 13.7 L (19.3-51.7) % [place] % (Auto) 13.4 H (4.7-12.5) % Eos % (Auto) 0.5 L (0.7-5.8) Baso % (Auto) 0.2 (0.1-1.2) % Neut # (Auto) 4.80 (1.56-6.13) K/mm3 Lymph # (Auto) 0.91 L (1.18-3.74) K/mm3 [place] # (Auto) 0.89 H (0.24-0.36) K/mm3 Eos # (Auto) 0.03 L (0.04-0.36) K/mm3 Baso # (Auto) 0.01 (0.01-0.08) K/mm3 Manual Slide Review Abnormal smear Sodium 146 H (136-145) mEq/L Potassium 4.2 (3.5-5.1) mEq/L Chloride 106 (98-107) mEq/L Carbon Dioxide 32 (21-32) mEq/L Anion Gap 12.2 (5-15) BUN 44 H (7-18) mg/dL Creatinine 1.5 H (0.55-1.02) mg/dL Est Cr Clr Drug Dosing 21.84 mL/min Estimated GFR (MDRD) 33 (>60) mL/min BUN/Creatinine Ratio 29.3 H (14-18) Glucose 82 L (83-115) mg/dL POC Glucose 130 H (83-110) mg/dL Calcium 8.8 (8.5-10.1) mg/dL Phosphorus 3.3 (2.6-4.7) mg/dL Magnesium 2.0 (1.8-2.4) mg/dl Total Bilirubin 0.5 (0.2-1.0) mg/dL AST 29 (15-37) U/L ALT 20 (14-59) U/L Alkaline Phosphatase 70 (46-116) U/L Troponin I (0.00-0.056) ng/mL C-Reactive Protein 6.0 H* (<1.0) mg/dL Total Protein 5.8 L (6.4-8.2) g/dl Albumin 2.4 L (3.4-5.0) g/dl Globulin 3.4 gm/dL Albumin/Globulin Ratio 0.7 L (1-2) TSH 3rd Generation 0.530 (0.358-3.74) uIU/mL 10/17/20 Range/Units 06:12 WBC (3.98-10.04) K/mm3 RBC (3.98-5.22) M/mm3 Hgb (11.2-15.7) gm/dl Hct (34.1-44.9) % MCV (79.4-94.8) fl MCH (25.6-32.2) pg MCHC (32.2-35.5) g/dl RDW Std Deviation (36.4-46.3) fL Plt Count (182-369) K/mm3 MPV (9.4-12.3) fl Neut % (Auto) (34.0-71.1) % Lymph % (Auto) (19.3-51.7) % [place] % (Auto) (4.7-12.5) % Eos % (Auto) (0.7-5.8) Baso % (Auto) (0.1-1.2) % Neut # (Auto) (1.56-6.13) K/mm3 Lymph # (Auto) (1.18-3.74) K/mm3 [place] # (Auto) (0.24-0.36) K/mm3 Eos # (Auto) (0.04-0.36) K/mm3 Baso # (Auto) (0.01-0.08) K/mm3 Manual Slide Review Sodium (136-145) mEq/L Potassium (3.5-5.1) mEq/L Chloride (98-107) mEq/L Carbon Dioxide (21-32) mEq/L Anion Gap (5-15) BUN (7-18) mg/dL Creatinine (0.55-1.02) mg/dL Est Cr Clr Drug Dosing mL/min Estimated GFR (MDRD) (>60) mL/min BUN/Creatinine Ratio (14-18) Glucose (83-115) mg/dL POC Glucose 84 (83-110) mg/dL Calcium (8.5-10.1) mg/dL Phosphorus (2.6-4.7) mg/dL Magnesium (1.8-2.4) mg/dl Total Bilirubin (0.2-1.0) mg/dL AST (15-37) U/L ALT (14-59) U/L Alkaline Phosphatase (46-116) U/L Troponin I (0.00-0.056) ng/mL C-Reactive Protein (<1.0) mg/dL Total Protein (6.4-8.2) g/dl Albumin (3.4-5.0) g/dl Globulin gm/dL Albumin/Globulin Ratio (1-2) TSH 3rd Generation (0.358-3.74) uIU/mL Med Orders - Current: Current Medications Acetaminophen (Tylenol) 650 mg PO Q6H PRN PRN Reason: Pain (mild 1-3) Apixaban (Eliquis) 5 mg PO BID [facility] Last Admin: 10/17/20 08:08 Dose: 5 mg Documented by: Dextrose (Glutose 15) 15 gm PO ASDIRECTED PRN PRN Reason: Hypoglycemia Diltiazem HCl (Dilacor Xr) 240 mg PO DAILY [facility] Last Admin: 10/17/20 09:24 Dose: 240 mg Documented by: Ezetimibe (Zetia) 10 mg PO DAILY [facility] Last Admin: 10/17/20 08:18 Dose: Not Given Documented by: Hydroxychloroquine Sulfate (Plaquenil) 200 mg PO DAILY [facility] Last Admin: 10/17/20 08:07 Dose: 200 mg Documented by: Insulin Glargine (Lantus) 25 unit SUBCUT BID [facility] Last Admin: 10/17/20 08:08 Dose: 25 units Documented by: Insulin Human Lispro (Humalog) 0 unit SUBCUT QIDACANDBED [facility]; Protocol Last Admin: 10/17/20 17:37 Dose: Not Given Documented by: Lisinopril (Prinivil) 20 mg PO DAILY [facility] Last Admin: 10/17/20 09:24 Dose: 20 mg Documented by: Lorazepam (Ativan) 0.5 mg PO QID PRN PRN Reason: Anxiety Magnesium Oxide (Magnesium Oxide) 400 mg PO DAILY [facility] Last Admin: 10/17/20 08:07 Dose: 400 mg Documented by: Metoprolol Tartrate (Lopressor) 50 mg PO BID [facility] Last Admin: 10/17/20 08:08 Dose: 50 mg Documented by: Multivitamins (Thera) 1 each PO DAILY [facility] Last Admin: 10/17/20 08:07 Dose: 1 each Documented by: Leflunomide 20 Mg - (Pt's Own Medication) 0 mg PO DAILY [facility] Last Admin: 10/17/20 11:43 Dose: Not Given Documented by: Pantoprazole Sodium (Protonix) 40 mg PO DAILY@0800 [facility] Last Admin: 10/17/20 08:07 Dose: 40 mg Documented by: Prednisone (Prednisone) 1 mg PO DAILY [facility] Last Admin: 10/17/20 08:07 Dose: 1 mg Documented by: Simvastatin (Zocor) 20 mg PO BEDTIME [facility] Discontinued Medications Aspirin (Aspirin) 324 mg PO ONETIME ONE Stop: 10/16/20 15:24 Last Admin: 10/16/20 16:08 Dose: 324 mg Documented by: Diltiazem HCl (Cardizem) 10 mg IVPUSH ONETIME ONE Stop: 10/16/20 18:02 Last Admin: 10/16/20 18:08 Dose: 10 mg Documented by: Diltiazem HCl (Cardizem) 10 mg IVPUSH ONETIME ONE Stop: 10/16/20 18:51 Last Admin: 10/16/20 18:50 Dose: 10 mg Documented by: Furosemide (Lasix) 60 mg IVPUSH NOW ONE Stop: 10/16/20 13:15 Last Admin: 10/16/20 13:22 Dose: 60 mg Documented by: Nitroglycerin/Dextrose (Nitroglycerin 25 Mg/D5w 250 Ml) 25 mg in 250 mls @ 3 mls/hr IV TITRATE [facility]; Protocol Last Titration: 10/16/20 17:15 Dose: 10 mcg/min, 6 mls/hr Documented by: Diltiazem HCl 100 mg/ Sodium (Chloride) 100 mls @ 5 mls/hr IV TITRATE [facility]; Protocol Last Titration: 10/17/20 05:02 Dose: 5 mg/hr, 5 mls/hr Documented by: Furosemide 100 mg/ Sodium (Chloride) 100 mls @ 5 mls/hr IV TITRATE [facility]; Protocol Furosemide 100 mg/ Sodium (Chloride) 100 mls @ 5 mls/hr IV TITRATE [facility] Last Admin: 10/17/20 13:12 Dose: 15 mls/hr Documented by: Non-Formulary Medication (Ferrous Gluconate [Fergon]) 1 tab PO DAILY [facility] Non-Formulary Medication (Insulin Aspart) 10 unit SQ TID [facility] Last Admin: 10/16/20 22:35 Dose: Not Given Documented by: Pantoprazole Sodium (Protonix) 40 mg PO ACBREAKFAST [facility] Prednisone (Prednisone) 1 mg PO WITHBREAKFAST [facility] - Exam General: Alert, Oriented HEENT: Pupils Equal, Mucous Membr. Moist/[place] Neck: Supple Lungs: Normal Respiratory Effort, Crackles Cardiovascular: Irregular Rhythm (Rate and rhythm) GI/Abdominal Exam: Normal Bowel Sounds, Soft, No Distention Extremities: Normal Inspection, Normal Capillary Refill, Pedal Edema, Other (Increased erythema around the black eschar of the right plantar surface of the foot.) Skin: Warm, Dry, Intact Psy/Mental Status: Alert, Normal Affect, Normal Mood Sepsis Event Note - Evaluation Sepsis Screening Result: No Definite Risk - Focused Exam Vital Signs: Vital Signs Temp Pulse Resp BP BP Pulse Ox Pulse Ox 10/17/20 17:47 98 10/17/20 16:00 97.3 F 88 20 121/52 L 98 10/17/20 15:00 78 20 98 10/17/20 14:00 80 22 H 97/52 L 99 10/17/20 13:00 77 18 96 10/17/20 12:00 97.8 F 79 21 H 104/60 97 10/17/20 11:00 77 23 H 104/61 100 10/17/20 10:00 90 21 H 124/61 97 10/17/20 09:24 133/59 L 10/17/20 09:00 98.2 F 92 22 H 133/59 L 99 10/17/20 08:08 107 H 113/64 10/17/20 08:03 100 10/17/20 08:00 94 22 H 113/64 98 10/17/20 07:00 80 21 H 110/60 100 - Problem List & Annotations (1) Acute exacerbation of congestive heart failure SNOMED Code(s): 447564280, 62399304460605 Code(s): I50.9 - HEART FAILURE, UNSPECIFIED Status: Acute Current Visit: Yes (2) Anemia SNOMED Code(s): 927710596 Code(s): D64.9 - ANEMIA, UNSPECIFIED Status: Chronic Priority: Medium Current Visit: No Qualifiers: Anemia type: due to chronic kidney disease Chronic kidney disease stage 3 subtype: stage 3b (GFR 30-44) (3) Chronic renal insufficiency, stage III (moderate) SNOMED Code(s): 373915411 Code(s): N18.30 - CHRONIC KIDNEY DISEASE, STAGE 3 UNSPECIFIED Status: Chronic Priority: Medium Current Visit: No Onset Date: ~09/02/20 (4) Diabetes mellitus type 2 in obese SNOMED Code(s): 74451862 Code(s): E11.69 - TYPE 2 DIABETES MELLITUS WITH OTHER SPECIFIED COMPLICATION; E66.9 - OBESITY, UNSPECIFIED Status: Chronic Priority: High Current Visit: No Onset Date: ~09/02/20 (5) Atrial fibrillation with rapid ventricular response SNOMED Code(s): 469375654806622 Code(s): I48.91 - UNSPECIFIED ATRIAL FIBRILLATION Status: Resolved Priority: High Current Visit: No Onset Date: ~09/02/20 - Problem List Review Problem List Initiated/Reviewed/Updated: Yes - My Orders Last 24 Hours: My Active Orders 10/16/20 18:33 Resuscitation Status Routine 10/16/20 20:37 Acetaminophen [TylenoL] 650 mg PO Q6H PRN 10/16/20 20:45 LORazepam [Ativan] 0.5 mg PO QID PRN 10/16/20 21:00 Apixaban [Eliquis] 5 mg PO BID Insulin Glarg,Human.Rec.Analog [LantUS] 25 unit SUBCUT BID Metoprolol Tartrate [Lopressor] 50 mg PO BID 10/17/20 Breakfast Heart Healthy Diet [DIET] Insulin Lispro [HumaLOG] See Protocol SUBCUT QIDACANDBED 10/17/20 08:00 Pantoprazole [ProTONIX] 40 mg PO DAILY@0800 10/17/20 09:00 Diltiazem [Dilacor XR] 240 mg PO DAILY Ezetimibe [Zetia] 10 mg PO DAILY Hydroxychloroquine [Plaquenil] 200 mg PO DAILY Leflunomide 0 mg PO DAILY Magnesium Oxide 400 mg PO DAILY Multivitamins,Therapeutic [Thera] 1 each PO DAILY lisinopriL [Prinivil] 20 mg PO DAILY predniSONE 1 mg PO DAILY 10/17/20 09:03 Dextrose [Glutose 15] 15 gm PO ASDIRECTED PRN 10/17/20 11:44 Consult to Physical Therapy [PT Evaluation and Treatment] [CONS] Routine 10/17/20 16:36 CXR [Chest 1V Frontal] [CR] Routine 10/17/20 16:57 Up With Assistance [RC] ASDIRECTED 10/17/20 21:00 Simvastatin [Zocor] 20 mg PO BEDTIME - Plan Plan:: Assessment 80-year-old female with history of new onset A. fib in August 2020 and worsening heart failure since . * In the emergency department patient was found To be in rate controlled atrial fibrillation with a rate of 73 and nonspecific T wave abnormalities. There was a prolonged QT interval. Patient was then started on nitroglycerin for shortness of breath and chest pain. Unfortunately, patient did develop tachycardia and had to have nitroglycerin stopped when she presented to the ICU. * Lasix 60 mg IV in the emergency department. * EKG on 09/22/2020: Rhythm is atrial fibrillation. Left ventricular systolic function was at the low normal of 50 to 55%. Left ventricle mild to modera tely increased concentric hypertrophy. Mitral valve regurgitation appears moderate. Left atrium is mild to moderately dilated * Troponin normal at less than 0.017 * BNP 3283 Type 2 diabetes, insulin-dependent. Diabetic neuropathy Diabetic foot ulcer * Hemoglobin A1c was 6.60 on 09/04/2020. 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 Titrate to urine output between 100 - 200 ml/h * Hold evening metoprolol and restart in the morning if rate controlled and heart failure is improved * Restart Cardizem CD 240 mg in the morning if rate control * Not rate controlled consider digoxin in the morning. * When patient is normovolemic and back on her home medications I would recommend monitoring for 12 to 24 hours to see if she needs adjustment to her rate medications. * Strict I's and O's and daily weights * VTE prophylaxis with Eliquis * CODE STATUS DNR/DNI 10/17/2020 80-year-old female with atrial fibrillation, heart failure, and right plantar foot ulcer. It appears that the right foot ulcer may be showing signs of cellulitis. We will start Zosyn and have wound therapy evaluated. If wound therapy is unable we may have to consult surgery for sharp debridement. Also, patient is having significant improvement in heart failure symptoms. Lasix drip will be stopped as well as Cardizem drip. Restart home medications including Cardizem CD 240 mg daily and metoprolol tartrate 50 mg twice daily.Blood sugars are well controlled with bedside blood sugars between 90 and 153 hemoglobin did drop overnight to 8.8. Continue to monitor. Kidney function is stable with GFR 33. CRP did increase to 6.0 with normal WBC of 6.7. Plan to continue to monitor over the next 24 hours. Also may need more aggressive treatment of the right plantar diabetic ulcer.
[2020-10-17] MEDS ORDERED: Piperacillin/Tazobactam 4.5 GM in Sodium Chloride 0.9% 100 ML IV ONE (18:11)
--- NOTE | 2020-10-17 19:46 | CR ---
Chest: Portable view of the chest was obtained. Comparison: Prior chest x-ray of 12/05/17. Heart is enlarged. Questionable small left-sided pleural effusion is seen. Pulmonary vessels are minimally increased. Lungs otherwise are clear. Impression: 1. Findings are suspicious for mild CHF. Diagnostic code #3
[2020-10-17] MEDS: Simvastatin 20 MG Tab PO SCH (20:40)
[2020-10-17] MEDS: LORazepam 0.5 MG Tab PO PRN (20:41)
[2020-10-18] MEDS: Piperacillin/Tazobactam 4.5 GM in Sodium Chloride 0.9% 100 ML IV SCH ×3 (01:01→17:22)
[2020-10-18 05:14] LABS: HEMOGLOBIN A1C 7.6 % (4.50-6.20)
--- NOTE | 2020-10-18 08:00 | PCM.PN ---
- General Info Date of Service: 10/18/20 Admission Dx/Problem (Free Text): Admission Diagnosis/Problem Admission Diagnosis/Problem Heart failure Subjective Update: No overnight issues. She rested well. She is back to her baseline supplemental O2. She is now off cardizem gtt. HR is not fully controlled, she fluctuates from upper 90s to mid teens. Her daughter would like to have her right foot ulcer evaluated. She is afebrile w/o leukocytosis. Her bilateral leg edema are better according to her. Functional Status: Reports: Pain Controlled, Urinating. Denies: New Symptoms - Review of Systems General: Reports: Appetite. Denies: Fever, Chills HEENT: Denies: Dysphasia, Sore Throat Pulmonary: Reports: Shortness of Breath. Denies: Wheezing Cardiovascular: Denies: Chest Pain Gastrointestinal: Denies: Abdominal Pain, Nausea, Vomiting Musculoskeletal: Denies: Neck Pain Skin: Reports: Other (skin lesions). Denies: Mottled, Pallor, Pruritis Neurological: Denies: Confusion, Gait Disturbance Psychiatric: Denies: Confusion, Anxiety - Patient Data Vitals - Most Recent: Last Vital Signs Temp 36.3 C 10/18/20 07:38 Pulse 98 10/18/20 07:38 Resp 24 H 10/18/20 07:38 BP 120/79 10/18/20 07:38 Pulse Ox 99 10/18/20 07:38 Weight - Most Recent: 129.727 kg I&O - Last 24 Hours: Intake & Output 10/17/20 10/18/20 10/18/20 22:59 06:59 14:59 Intake Total 819 300 Output Total 390 345 Balance 429 -45 Lab Results Last 24 Hours: Laboratory Results - last 24 hr 10/17/20 10/17/20 10/17/20 Range/Units 11:27 17:06 20:31 WBC (3.98-10.04) K/mm3 RBC (3.98-5.22) M/mm3 Hgb (11.2-15.7) gm/dl Hct (34.1-44.9) % MCV (79.4-94.8) fl MCH (25.6-32.2) pg MCHC (32.2-35.5) g/dl RDW Std Deviation (36.4-46.3) fL Plt Count (182-369) K/mm3 MPV (9.4-12.3) fl Neut % (Auto) (34.0-71.1) % Lymph % (Auto) (19.3-51.7) % [place] % (Auto) (4.7-12.5) % Eos % (Auto) (0.7-5.8) Baso % (Auto) (0.1-1.2) % Neut # (Auto) (1.56-6.13) K/mm3 Lymph # (Auto) (1.18-3.74) K/mm3 [place] # (Auto) (0.24-0.36) K/mm3 Eos # (Auto) (0.04-0.36) K/mm3 Baso # (Auto) (0.01-0.08) K/mm3 Sodium (136-145) mEq/L Potassium (3.5-5.1) mEq/L Chloride (98-107) mEq/L Carbon Dioxide (21-32) mEq/L Anion Gap (5-15) BUN (7-18) mg/dL Creatinine (0.55-1.02) mg/dL Est Cr Clr Drug Dosing mL/min Estimated GFR (MDRD) (>60) mL/min BUN/Creatinine Ratio (14-18) Glucose (83-115) mg/dL POC Glucose 210 H 192 H 228 H (83-110) mg/dL Hemoglobin A1c (4.50-6.20) % Calcium (8.5-10.1) mg/dL Phosphorus (2.6-4.7) mg/dL Magnesium (1.8-2.4) mg/dl NT-Pro-B Natriuret Pep (0-450) pg/mL 10/18/20 10/18/20 10/18/20 Range/Units 04:39 04:39 04:39 WBC 4.85 (3.98-10.04) K/mm3 RBC 3.17 L (3.98-5.22) M/mm3 Hgb 9.1 L (11.2-15.7) gm/dl Hct 30.2 L (34.1-44.9) % MCV 95.3 H (79.4-94.8) fl MCH 28.7 (25.6-32.2) pg MCHC 30.1 L (32.2-35.5) g/dl RDW Std Deviation 51.2 H (36.4-46.3) fL Plt Count 145 L (182-369) K/mm3 MPV 10.7 (9.4-12.3) fl Neut % (Auto) 63.9 (34.0-71.1) % Lymph % (Auto) 18.8 L (19.3-51.7) % [place] % (Auto) 14.4 H (4.7-12.5) % Eos % (Auto) 2.5 (0.7-5.8) Baso % (Auto) 0.4 (0.1-1.2) % Neut # (Auto) 3.10 (1.56-6.13) K/mm3 Lymph # (Auto) 0.91 L (1.18-3.74) K/mm3 [place] # (Auto) 0.70 H (0.24-0.36) K/mm3 Eos # (Auto) 0.12 (0.04-0.36) K/mm3 Baso # (Auto) 0.02 (0.01-0.08) K/mm3 Sodium 143 (136-145) mEq/L Potassium 4.3 (3.5-5.1) mEq/L Chloride 104 (98-107) mEq/L Carbon Dioxide 31 (21-32) mEq/L Anion Gap 12.3 (5-15) BUN 54 H (7-18) mg/dL Creatinine 1.9 H (0.55-1.02) mg/dL Est Cr Clr Drug Dosing 17.24 mL/min Estimated GFR (MDRD) 26 (>60) mL/min BUN/Creatinine Ratio 28.4 H (14-18) Glucose 128 H (83-115) mg/dL POC Glucose (83-110) mg/dL Hemoglobin A1c (4.50-6.20) % Calcium 8.6 (8.5-10.1) mg/dL Phosphorus 3.7 (2.6-4.7) mg/dL Magnesium 1.9 (1.8-2.4) mg/dl NT-Pro-B Natriuret Pep 2609 H (0-450) pg/mL 10/18/20 10/18/20 Range/Units 04:39 06:07 WBC (3.98-10.04) K/mm3 RBC (3.98-5.22) M/mm3 Hgb (11.2-15.7) gm/dl Hct (34.1-44.9) % MCV (79.4-94.8) fl MCH (25.6-32.2) pg MCHC (32.2-35.5) g/dl RDW Std Deviation (36.4-46.3) fL Plt Count (182-369) K/mm3 MPV (9.4-12.3) fl Neut % (Auto) (34.0-71.1) % Lymph % (Auto) (19.3-51.7) % [place] % (Auto) (4.7-12.5) % Eos % (Auto) (0.7-5.8) Baso % (Auto) (0.1-1.2) % Neut # (Auto) (1.56-6.13) K/mm3 Lymph # (Auto) (1.18-3.74) K/mm3 [place] # (Auto) (0.24-0.36) K/mm3 Eos # (Auto) (0.04-0.36) K/mm3 Baso # (Auto) (0.01-0.08) K/mm3 Sodium (136-145) mEq/L Potassium (3.5-5.1) mEq/L Chloride (98-107) mEq/L Carbon Dioxide (21-32) mEq/L Anion Gap (5-15) BUN (7-18) mg/dL Creatinine (0.55-1.02) mg/dL Est Cr Clr Drug Dosing mL/min Estimated GFR (MDRD) (>60) mL/min BUN/Creatinine Ratio (14-18) Glucose (83-115) mg/dL POC Glucose 140 H (83-110) mg/dL Hemoglobin A1c 7.60 H (4.50-6.20) % Calcium (8.5-10.1) mg/dL Phosphorus (2.6-4.7) mg/dL Magnesium (1.8-2.4) mg/dl NT-Pro-B Natriuret Pep (0-450) pg/mL Valerio Results Last 24 Hours: Microbiology 10/17/20 17:50 Stool Occult Blood (VALERIO) - Final Stool / Feces Med Orders - Current: Current Medications Acetaminophen (Tylenol) 650 mg PO Q6H PRN PRN Reason: Pain (mild 1-3) Apixaban (Eliquis) 5 mg PO BID [facility] Last Admin: 10/17/20 20:41 Dose: 5 mg Documented by: Dextrose (Glutose 15) 15 gm PO ASDIRECTED PRN PRN Reason: Hypoglycemia Diltiazem HCl (Dilacor Xr) 240 mg PO DAILY [facility] Last Admin: 10/17/20 09:24 Dose: 240 mg Documented by: Ezetimibe (Zetia) 10 mg PO BEDTIME [facility] Last Admin: 10/17/20 21:02 Dose: 10 mg Documented by: Hydroxychloroquine Sulfate (Plaquenil) 200 mg PO DAILY [facility] Last Admin: 10/17/20 08:07 Dose: 200 mg Documented by: Piperacillin Sod/Tazobactam (Sod 4.5 gm/ Sodium Chloride) 100 mls @ 25 mls/hr IV Q8H [facility] Last Admin: 10/18/20 01:01 Dose: 25 mls/hr Documented by: Insulin Glargine (Lantus) 25 unit SUBCUT BID [facility] Last Admin: 10/17/20 20:37 Dose: 25 units Documented by: Insulin Human Lispro (Humalog) 0 unit SUBCUT QIDACANDBED [facility]; Protocol Last Admin: 10/18/20 06:17 Dose: Not Given Documented by: Lisinopril (Prinivil) 20 mg PO DAILY [facility] Last Admin: 10/17/20 09:24 Dose: 20 mg Documented by: Lorazepam (Ativan) 0.5 mg PO QID PRN PRN Reason: Anxiety Last Admin: 10/17/20 20:41 Dose: 0.5 mg Documented by: Magnesium Oxide (Magnesium Oxide) 400 mg PO DAILY [facility] Last Admin: 10/17/20 08:07 Dose: 400 mg Documented by: Metoprolol Tartrate (Lopressor) 50 mg PO BID [facility] Last Admin: 10/17/20 20:43 Dose: 50 mg Documented by: Multivitamins (Thera) 1 each PO DAILY [facility] Last Admin: 10/17/20 08:07 Dose: 1 each Documented by: Leflunomide 20 Mg - (Pt's Own Medication) 0 mg PO DAILY [facility] Last Admin: 10/17/20 11:43 Dose: Not Given Documented by: Pantoprazole Sodium (Protonix) 40 mg PO DAILY@0800 [facility] Last Admin: 10/17/20 08:07 Dose: 40 mg Documented by: Prednisone (Prednisone) 1 mg PO DAILY [facility] Last Admin: 10/17/20 08:07 Dose: 1 mg Documented by: Simvastatin (Zocor) 20 mg PO BEDTIME [facility] Last Admin: 10/17/20 20:40 Dose: 20 mg Documented by: Discontinued Medications Aspirin (Aspirin) 324 mg PO ONETIME ONE Stop: 10/16/20 15:24 Last Admin: 10/16/20 16:08 Dose: 324 mg Documented by: Diltiazem HCl (Cardizem) 10 mg IVPUSH ONETIME ONE Stop: 10/16/20 18:02 Last Admin: 10/16/20 18:08 Dose: 10 mg Documented by: Diltiazem HCl (Cardizem) 10 mg IVPUSH ONETIME ONE Stop: 10/16/20 18:51 Last Admin: 10/16/20 18:50 Dose: 10 mg Documented by: Ezetimibe (Zetia) 10 mg PO DAILY [facility] Last Admin: 10/17/20 08:18 Dose: Not Given Documented by: Furosemide (Lasix) 60 mg IVPUSH NOW ONE Stop: 10/16/20 13:15 Last Admin: 10/16/20 13:22 Dose: 60 mg Documented by: Nitroglycerin/Dextrose (Nitroglycerin 25 Mg/D5w 250 Ml) 25 mg in 250 mls @ 3 mls/hr IV TITRATE [facility]; Protocol Last Titration: 10/16/20 17:15 Dose: 10 mcg/min, 6 mls/hr Documented by: Diltiazem HCl 100 mg/ Sodium (Chloride) 100 mls @ 5 mls/hr IV TITRATE [facility]; Protocol Last Titration: 10/17/20 05:02 Dose: 5 mg/hr, 5 mls/hr Documented by: Furosemide 100 mg/ Sodium (Chloride) 100 mls @ 5 mls/hr IV TITRATE [facility]; Protocol Furosemide 100 mg/ Sodium (Chloride) 100 mls @ 5 mls/hr IV TITRATE [facility] Last Admin: 10/17/20 13:12 Dose: 15 mls/hr Documented by: Piperacillin Sod/Tazobactam (Sod 4.5 gm/ Sodium Chloride) 100 mls @ 200 mls/hr IV ONETIME ONE Stop: 10/17/20 18:40 Last Admin: 10/17/20 18:30 Dose: 200 mls/hr Documented by: Non-Formulary Medication (Ferrous Gluconate [Fergon]) 1 tab PO DAILY [facility] Non-Formulary Medication (Insulin Aspart) 10 unit SQ TID [facility] Last Admin: 10/16/20 22:35 Dose: Not Given Documented by: Pantoprazole Sodium (Protonix) 40 mg PO ACBREAKFAST [facility] Prednisone (Prednisone) 1 mg PO WITHBREAKFAST [facility] - Exam Quality Assessment: Supplemental Oxygen, Urine Catheter General: Alert, Oriented, Cooperative, Other (Morbidly Obese) HEENT: Pupils Equal, Pupils Reactive, EOMI, Mucous Membr. Moist/[place] Neck: Supple, Trachea Midline, No JVD, Other (short and thick). No: JVD Lungs: Normal Respiratory Effort, Decreased Breath Sounds Cardiovascular: Irregular Rhythm GI/Abdominal Exam: Normal Bowel Sounds, Soft, Non-Tender, No Organomegaly, Other (Obese) (Female) Exam: Other (indwelling clements catheter) Back Exam: Normal Inspection, Decreased Range of Motion Extremities: Normal Range of Motion, Pedal Edema, Limited Range of Motion, Re dness, Other (Small raised skin lesions on her right leg; has bilateral lower extremity edema). No: Increased Warmth Peripheral Pulses: 1+: Dorsalis Pedis (L), Dorsalis Pedis (R) Skin: Warm, Dry, Intact. No: Ecchymosis Wound/Incisions: No Drainage, Erythema Improving, Other (right leg: quarter size on upper thigh and a dime size on lower leg; small ulcer with eschar on the bottom of her right foot) Neurological: No New Focal Deficit. No: Normal Gait Psy/Mental Status: Alert, Normal Affect, Normal Mood Sepsis Event Note - Evaluation Sepsis Screening Result: No Definite Risk - Focused Exam Vital Signs: Vital Signs Temp Pulse Resp BP BP Pulse Ox 10/18/20 07:38 36.3 C 98 24 H 120/79 99 10/18/20 04:00 36.4 C 84 20 133/63 100 10/18/20 00:00 36.3 C 74 17 112/57 L 100 10/17/20 20:43 85 127/81 - Problem List Review Problem List Initiated/Reviewed/Updated: Yes - Assessment Assessment:: Assessment Acute: 80-year-old female with history of new onset A. fib in August 2020 and worsening heart failure since . * In the emergency department patient was found To be in rate controlled atrial fibrillation with a rate of 73 and nonspecific T wave abnormalities. There was a prolonged QT interval. Patient was then started on nitroglycerin for shortness of breath and chest pain. Unfortunately, patient did develop tachycardia and had to have nitroglycerin stopped when she presented to the ICU. * Lasix 60 mg IV in the emergency department. * EKG on 09/22/2020: Rhythm is atrial fibrillation. Left ventricular systolic function was at the low normal of 50 to 55%. Left ventricle mild to moderately increased concentric hypertrophy. Mitral valve regurgitation appears moderate. Left atrium is mild to moderately dilated * Troponin normal at less than 0.017 * BNP 3283-->2609 * Rate control agents: Cardizem 240 mg CD po daily and Metoprolol Tartrate 50 mg po BID * Eliquis 5 mg po BID for stroke prophylaxis Hyperglycemia Type 2 diabetes, insulin-dependent. Diabetic neuropathy. Diabetic foot ulcer/cellulitis. * Hemoglobin A1c was 6.60 on 09/04/2020. TSH was 0.536 on 09/04/2020 * Lantus 25 units twice daily, NovoLog 10 units 3 times daily, sliding scale insulin * A1C is 7.60; CRP if 6.0 * Continue IV Zosyn 4.5 mg IV Q8H * Consult wound care in AM; services not available today * General Surgery consult pending recommendations from wound care Normocytic, normochromic anemia of chronic disease. 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 * Hemoglobin 10.6--> 9.1grams stable * Creatinine 1.5, BUN 48, estimated GFR 33 which is stable since August * No active bleeding or melena Thrombocytopenia. * Platelet of 145K * She is on Elqiuis for stroke prophylaxis * No active bleeding * We will monitor Mild Hypernatremia, resolved. * Na of 146 * Will monitor Super Obese. 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 Titrate to urine output between 100 - 200 ml/h * Hold evening metoprolol and restart in the morning if rate controlled and heart failure is improved * Restart Cardizem CD 240 mg in the morning if rate control * Not rate controlled consider digoxin in the morning. * When patient is normovolemic and back on her home medications I would recommend monitoring for 12 to 24 hours to see if she needs adjustment to her rate medications. * Strict I's and O's and daily weights * VTE prophylaxis with Eliquis * CODE STATUS DNR/DNI 10/17/2020 80-year-old female with atrial fibrillation, heart failure, and right plantar foot ulcer. It appears that the right foot ulcer may be showing signs of cellulitis. We will start Zosyn and have wound therapy evaluated. If wound therapy is unable we may have to consult surgery for sharp debridement. Also, patient is having significant improvement in heart failure symptoms. Lasix drip will be stopped as well as Cardizem drip. Restart home medications including Cardizem CD 240 mg daily and metoprolol tartrate 50 mg twice daily.Blood sugars are well controlled with bedside blood sugars between 90 and 153 hemoglobin did drop overnight to 8.8. Continue to monitor. Kidney function is stable with GFR 33. CRP did increase to 6.0 with normal WBC of 6.7. Plan to continue to monitor over the next 24 hours. Also may need more aggressive treatment of the right plantar diabetic ulcer. 10/18/2020 * Continue rate control agents and intravenous antibiotic * FT4 in AM * Resume Lasix 40 mg po BID * Dieticina's consult for weight management * PT/OT eval * Wound care consult * Strict I's and O's and daily weights * VTE prophylaxis with Eliquis * CODE STATUS DNR/DNI * LOS > 96 hrs heart rate is not fully controlled and wound care consult
[2020-10-18] MEDS: Hydroxychloroquine 200 MG Tab PO SCH (08:59)
[2020-10-18] MEDS: Pantoprazole 40 MG Tab.CR PO SCH (08:59)
[2020-10-18] MEDS: Metoprolol Tartrate 50 MG Tab PO SCH ×2 (08:59→20:35)
[2020-10-18] MEDS: Magnesium Oxide 400 MG Tab PO SCH (08:59)
[2020-10-18] MEDS: Multivitamins,Therapeutic Tab PO SCH (08:59)
[2020-10-18] MEDS: predniSONE 1 MG Tab PO SCH (08:59)
[2020-10-18] MEDS: Diltiazem 240 MG Cap.ER PO SCH (08:59)
[2020-10-18] MEDS: Lisinopril 20 MG Tab PO SCH (09:02)
[2020-10-18] MEDS: Apixaban 5 MG Tab PO SCH ×2 (09:02→20:33)
[2020-10-18] MEDS: Insulin Glarg,Human.Rec.Analog 100 Unit/ML SUBCUT SCH ×2 (09:03→20:48)
[2020-10-18] MEDS: LEFLUNOMIDE 20 MG PO SCH ×2 (09:51→20:36)
[2020-10-18] MEDS ORDERED: Triamcinolone Acetonide 0.1% Crm 15 GM Tube TOP PRN (12:32)
[2020-10-18] MEDS: Furosemide 40 MG Tab PO SCH (13:01)
[2020-10-18] MEDS: Ezetimibe 10 MG Tab PO SCH (20:33)
[2020-10-18] MEDS: Simvastatin 20 MG Tab PO SCH (20:34)
[2020-10-18] MEDS: LORazepam 0.5 MG Tab PO PRN (20:47)
[2020-10-19] MEDS: Piperacillin/Tazobactam 4.5 GM in Sodium Chloride 0.9% 100 ML IV SCH ×3 (02:17→17:14)
[2020-10-19] MEDS: Furosemide 40 MG Tab PO SCH ×2 (06:06→16:13)
[2020-10-19] MEDS: Multivitamins,Therapeutic Tab PO SCH (08:05)
[2020-10-19] MEDS: Hydroxychloroquine 200 MG Tab PO SCH (08:05)
[2020-10-19] MEDS: Insulin Glarg,Human.Rec.Analog 100 Unit/ML SUBCUT SCH ×2 (08:05→21:29)
[2020-10-19] MEDS: Pantoprazole 40 MG Tab.CR PO SCH (08:05)
[2020-10-19] MEDS: Fish Oil/Omega-3 Fatty Acids 1 Gm Cap PO SCH (08:05)
[2020-10-19] MEDS: Diltiazem 240 MG Cap.ER PO SCH (08:06)
[2020-10-19] MEDS: predniSONE 1 MG Tab PO SCH (08:06)
[2020-10-19] MEDS: Metoprolol Tartrate 50 MG Tab PO SCH ×2 (08:06→21:31)
[2020-10-19] MEDS: Magnesium Oxide 400 MG Tab PO SCH (08:06)
[2020-10-19] MEDS: Lisinopril 20 MG Tab PO SCH (08:06)
[2020-10-19] MEDS: Apixaban 5 MG Tab PO SCH ×2 (08:06→21:31)
--- NOTE | 2020-10-19 08:07 | PCM.PN ---
- General Info Date of Service: 10/19/20 Admission Dx/Problem (Free Text): Admission Diagnosis/Problem Admission Diagnosis/Problem Heart failure Subjective Update: No overnight or acute issues. She feels good this AM. HR is more controlled. She is at baseline 2L NC. Functional Status: Reports: Pain Controlled, Tolerating Diet, Ambulating, Urinating. Denies: New Symptoms - Review of Systems General: Denies: Fever, Weakness, Chills Pulmonary: Denies: Shortness of Breath Cardiovascular: Denies: Chest Pain, Dyspnea on Exertion Gastrointestinal: Denies: Abdominal Pain, Nausea, Vomiting Genitourinary: Reports: Frequency Musculoskeletal: Denies: Joint Pain Skin: Reports: Bruising. Denies: Cyanosis Neurological: Reports: Gait Disturbance. Denies: Confusion, Dizziness Psychiatric: Denies: Depression, Anxiety - Patient Data Vitals - Most Recent: Last Vital Signs Temp 36.4 C 10/19/20 07:33 Pulse 102 H 10/19/20 08:06 Resp 22 H 10/19/20 07:33 BP 99/81 10/19/20 08:06 Pulse Ox 96 10/19/20 07:33 Weight - Most Recent: 129.812 kg I&O - Last 24 Hours: Intake & Output 10/18/20 10/19/20 10/19/20 22:59 06:59 14:59 Intake Total 740 376 Output Total 550 540 175 Balance 190 -164 -175 Lab Results Last 24 Hours: Laboratory Results - last 24 hr 10/18/20 10/18/20 10/18/20 Range/Units 12:27 16:57 20:17 POC Glucose 279 H 182 H 179 H (83-110) mg/dL Free T4 (0.76-1.46) ng/dL 10/19/20 10/19/20 Range/Units 04:31 07:29 POC Glucose 114 H (83-110) mg/dL Free T4 1.27 (0.76-1.46) ng/dL Med Orders - Current: Current Medications Acetaminophen (Tylenol) 650 mg PO Q6H PRN PRN Reason: Pain (mild 1-3) Apixaban (Eliquis) 5 mg PO BID [facility]J Last Admin: 10/19/20 08:06 Dose: 5 mg Documented by: Dextrose (Glutose 15) 15 gm PO ASDIRECTED PRN PRN Reason: Hypoglycemia Diltiazem HCl (Dilacor Xr) 240 mg PO DAILY [facility] Last Admin: 10/19/20 08:06 Dose: 240 mg Documented by: Ezetimibe (Zetia) 10 mg PO BEDTIME [facility] Last Admin: 10/18/20 20:33 Dose: 10 mg Documented by: Fish Oil (Fish Oil) 1 gm PO DAILY [facility] Last Admin: 10/19/20 08:05 Dose: 1 gm Documented by: Furosemide (Lasix) 40 mg PO BIDDIURETIC [facility] Last Admin: 10/19/20 06:06 Dose: 40 mg Documented by: Hydroxychloroquine Sulfate (Plaquenil) 200 mg PO DAILY [facility] Last Admin: 10/19/20 08:05 Dose: 200 mg Documented by: Piperacillin Sod/Tazobactam (Sod 4.5 gm/ Sodium Chloride) 100 mls @ 25 mls/hr IV Q8H [facility] Last Admin: 10/19/20 02:17 Dose: 25 mls/hr Documented by: Insulin Glargine (Lantus) 25 unit SUBCUT BID [facility] Last Admin: 10/19/20 08:05 Dose: 25 units Documented by: Insulin Human Lispro (Humalog) 0 unit SUBCUT QIDACANDBED [facility]; Protocol Last Admin: 10/19/20 07:31 Dose: Not Given Documented by: Lisinopril (Prinivil) 20 mg PO DAILY [facility] Last Admin: 10/19/20 08:06 Dose: 20 mg Documented by: Lorazepam (Ativan) 0.5 mg PO QID PRN PRN Reason: Anxiety Last Admin: 10/18/20 20:47 Dose: 0.5 mg Documented by: Magnesium Oxide (Magnesium Oxide) 400 mg PO DAILY [facility] Last Admin: 10/19/20 08:06 Dose: 400 mg Documented by: Metoprolol Tartrate (Lopressor) 50 mg PO BID [facility] Last Admin: 10/19/20 08:06 Dose: 50 mg Documented by: Multivitamins (Thera) 1 each PO DAILY [facility] Last Admin: 10/19/20 08:05 Dose: 1 each Documented by: Leflunomide 20 Mg - (Pt's Own Medication) 0 mg PO QPM@1999 [facility] Last Admin: 10/18/20 20:36 Dose: 20 mg Documented by: Pantoprazole Sodium (Protonix) 40 mg PO DAILY@0800 [facility] Last Admin: 10/19/20 08:05 Dose: 40 mg Documented by: Prednisone (Prednisone) 1 mg PO DAILY [facility] Last Admin: 10/19/20 08:06 Dose: 1 mg Documented by: Simvastatin (Zocor) 20 mg PO BEDTIME [facility] Last Admin: 10/18/20 20:34 Dose: 20 mg Documented by: Triamcinolone Acetonide (Triamcinolone Acetonide 0.1% Crm) 0 gm TOP BID PRN PRN Reason: skin complications Last Admin: 10/18/20 13:00 Dose: 1 applic Documented by: Discontinued Medications Aspirin (Aspirin) 324 mg PO ONETIME ONE Stop: 10/16/20 15:24 Last Admin: 10/16/20 16:08 Dose: 324 mg Documented by: Diltiazem HCl (Cardizem) 10 mg IVPUSH ONETIME ONE Stop: 10/16/20 18:02 Last Admin: 10/16/20 18:08 Dose: 10 mg Documented by: Diltiazem HCl (Cardizem) 10 mg IVPUSH ONETIME ONE Stop: 10/16/20 18:51 Last Admin: 10/16/20 18:50 Dose: 10 mg Documented by: Ezetimibe (Zetia) 10 mg PO DAILY [facility] Last Admin: 10/17/20 08:18 Dose: Not Given Documented by: Furosemide (Lasix) 60 mg IVPUSH NOW ONE Stop: 10/16/20 13:15 Last Admin: 10/16/20 13:22 Dose: 60 mg Documented by: Nitroglycerin/Dextrose (Nitroglycerin 25 Mg/D5w 250 Ml) 25 mg in 250 mls @ 3 mls/hr IV TITRATE [facility]; Protocol Last Titration: 10/16/20 17:15 Dose: 10 mcg/min, 6 mls/hr Documented by: Diltiazem HCl 100 mg/ Sodium (Chloride) 100 mls @ 5 mls/hr IV TITRATE [facility]; Protocol Last Titration: 10/17/20 05:02 Dose: 5 mg/hr, 5 mls/hr Documented by: Furosemide 100 mg/ Sodium (Chloride) 100 mls @ 5 mls/hr IV TITRATE [facility]; Protocol Furosemide 100 mg/ Sodium (Chloride) 100 mls @ 5 mls/hr IV TITRATE [facility] Last Admin: 10/17/20 13:12 Dose: 15 mls/hr Documented by: Piperacillin Sod/Tazobactam (Sod 4.5 gm/ Sodium Chloride) 100 mls @ 200 mls/hr IV ONETIME ONE Stop: 10/17/20 18:40 Last Admin: 10/17/20 18:30 Dose: 200 mls/hr Documented by: Non-Formulary Medication (Ferrous Gluconate [Fergon]) 1 tab PO DAILY [facility] Non-Formulary Medication (Insulin Aspart) 10 unit SQ TID [facility] Last Admin: 10/16/20 22:35 Dose: Not Given Documented by: Leflunomide 20 Mg - (Pt's Own Medication) 0 mg PO DAILY [facility] Last Admin: 10/18/20 09:51 Dose: Not Given Documented by: Pantoprazole Sodium (Protonix) 40 mg PO ACBREAKFAST [facility] Prednisone (Prednisone) 1 mg PO WITHBREAKFAST CJ - Exam Quality Assessment: Supplemental Oxygen General: Alert, Oriented, Cooperative, No Acute Distress, Other (Super Obese) HEENT: Pupils Equal, Pupils Reactive, EOMI, Mucous Membr. Moist/[place] Neck: Supple Lungs: Normal Respiratory Effort, Decreased Breath Sounds Cardiovascular: Irregular Rhythm GI/Abdominal Exam: Normal Bowel Sounds, Soft, Non-Tender, No Organomegaly, Other (Obese) (Female) Exam: Other (indwelling clements catheter) Back Exam: Normal Inspection, Decreased Range of Motion Extremities: Normal Range of Motion, Non-Tender, Pedal Edema, Limited Range of Motion, Other (multiple skin lesions on right leg) Peripheral Pulses: 1+: Posterior Tibial (R), Dorsalis Pedis (R) Skin: Warm, Dry Wound/Incisions: Healing Well, No Drainage, Erythema Neurological: No New Focal Deficit, Normal Gait Psy/Mental Status: Alert, Normal Affect, Normal Mood Sepsis Event Note - Evaluation Sepsis Screening Result: No Definite Risk - Focused Exam Vital Signs: Vital Signs Temp Pulse Resp BP BP Pulse Ox 10/19/20 08:06 102 H 99/81 10/19/20 07:33 36.4 C 22 H 99/81 96 10/19/20 04:00 36.3 C 18 111/66 98 10/19/20 00:00 36.4 C 18 119/67 98 10/18/20 20:35 94 118/67 - Problem List Review Problem List Initiated/Reviewed/Updated: Yes - My Orders Last 24 Hours: My Active Orders 10/18/20 12:32 Triamcinolone Acetonide [Triamcinolone Acetonide 0.1% Crm] 0 gm TOP BID PRN 10/18/20 14:00 Furosemide [Lasix] 40 mg PO BIDDIURETIC 10/19/20 09:00 Fish Oil/[place]-3 Fatty Acids [Fish Oil] 1 gm PO DAILY - Assessment Assessment:: Assessment Acute: 80-year-old female with history of new onset A. fib in August 2020 and worsening heart failure since . * In the emergency department patient was found To be in rate controlled atrial fibrillation with a rate of 73 and nonspecific T wave abnormalities. There was a prolonged QT interval. Patient was then started on nitroglycerin for shortness of breath and chest pain. Unfortunately, patient did develop tachycardia and had to have nitroglycerin stopped when she presented to the ICU. * Lasix 60 mg IV in the emergency department. * EKG on 09/22/2020: Rhythm is atrial fibrillation. Left ventricular systolic function was at the low normal of 50 to 55%. Left ventricle mild to moderately increased concentric hypertrophy. Mitral valve regurgitation appears moderate. Left atrium is mild to moderately dilated * Troponin normal at less than 0.017 * BNP 3283-->2609 * Rate control agents: Cardizem 240 mg CD po daily and Metoprolol Tartrate 50 mg po BID * Eliquis 5 mg po BID for stroke prophylaxis * HR is more controlled Hyperglycemia Type 2 diabetes, insulin-dependent. Diabetic neuropathy. Diabetic foot ulcer/cellulitis. * Hemoglobin A1c was 6.60 on 09/04/2020. TSH was 0.536 on 09/04/2020 * Lantus 25 units twice daily, NovoLog 10 units 3 times daily, sliding scale insulin * A1C is 7.60; CRP if 6.0 * BS is well controlled * Continue IV Zosyn 4.5 mg IV Q8H * Consult wound care in AM; services not available today * General Surgery consult pending recommendations from wound care Normocytic, normochromic anemia of chronic disease. 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 * Hemoglobin 10.6--> 9.1grams stable * Creatinine 1.5, BUN 48, estimated GFR 33 which is stable since August * No active bleeding or melena Thrombocytopenia. * Platelet of 145K * She is on Elqiuis for stroke prophylaxis * No active bleeding * We will monitor Mild Hypernatremia, resolved. * Na of 146 * Will monitor Super Obese. 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 Titrate to urine output between 100 - 200 ml/h * Hold evening metoprolol and restart in the morning if rate controlled and heart failure is improved * Restart Cardizem CD 240 mg in the morning if rate control * Not rate controlled consider digoxin in the morning. * When patient is normovolemic and back on her home medications I would recommend monitoring for 12 to 24 hours to see if she needs adjustment to her rate medications. * Strict I's and O's and daily weights * VTE prophylaxis with Eliquis * CODE STATUS DNR/DNI 10/17/2020 80-year-old female with atrial fibrillation, heart failure, and right plantar foot ulcer. It appears that the right foot ulcer may be showing signs of cellulitis. We will start Zosyn and have wound therapy evaluated. If wound therapy is unable we may have to consult surgery for sharp debridement. Also, patient is having significant improvement in heart failure symptoms. Lasix drip will be stopped as well as Cardizem drip. Restart home medications including Cardizem CD 240 mg daily and metoprolol tartrate 50 mg twice daily.Blood sugars are well controlled with bedside blood sugars between 90 and 153 hemoglobin did drop overnight to 8.8. Continue to monitor. Kidney function is stable with GFR 33. CRP did increase to 6.0 with normal WBC of 6.7. Plan to continue to monitor over the next 24 hours. Also may need more aggressive treatment of the right plantar diabetic ulcer. 10/18/2020 * Continue rate control agents and intravenous antibiotic * FT4 in AM * Resume Lasix 40 mg po BID * Director Medical Economics's consult for weight management * PT/OT eval * Wound care consult * Strict I's and O's and daily weights * VTE prophylaxis with Eliquis * CODE STATUS DNR/DNI * LOS > 96 hrs heart rate is not fully controlled and wound care consult 10/19/2020 * Continue rate control agents and intravenous antibiotic * FT4 in normal * Continue home dose Lasix 40 mg po BID * Hold Leflunomide * CPAP at night and continue baseline 2L NC * Director [employer]'s consult for weight management * PT/OT eval * Encourage to ambulate to assess how her heart rate respond to her rate control regimen * Wound care consult-seen this AM; no surgical consult recommendations * Strict I's and O's and daily weights * VTE/Stroke prophylaxis with Eliquis * CODE STATUS DNR/DNI * Possible discharge in 1-2 days if stable with [facility]HS: PT/OT/Nursing and HSE * LOS > 96 hrs heart rate is not fully controlled and wound care consult
[2020-10-19] MEDS ORDERED: Furosemide 40 MG Tab PO ONE (21:00)
[2020-10-19] MEDS: LEFLUNOMIDE 20 MG PO SCH (21:07)
[2020-10-19] MEDS: Ezetimibe 10 MG Tab PO SCH (21:30)
[2020-10-19] MEDS: Simvastatin 20 MG Tab PO SCH (21:31)
[2020-10-19] MEDS: LORazepam 0.5 MG Tab PO PRN (21:32)
[2020-10-20] MEDS: Piperacillin/Tazobactam 4.5 GM in Sodium Chloride 0.9% 100 ML IV SCH ×2 (02:25→10:28)
[2020-10-20] MEDS: Furosemide 40 MG Tab PO SCH ×2 (06:14→14:17)
[2020-10-20] MEDS: Fish Oil/Omega-3 Fatty Acids 1 Gm Cap PO SCH (08:19)
[2020-10-20] MEDS: Multivitamins,Therapeutic Tab PO SCH (08:19)
[2020-10-20] MEDS: Apixaban 5 MG Tab PO SCH ×2 (08:20→20:34)
[2020-10-20] MEDS: Metoprolol Tartrate 50 MG Tab PO SCH ×2 (08:20→20:34)
[2020-10-20] MEDS: Magnesium Oxide 400 MG Tab PO SCH (08:20)
[2020-10-20] MEDS: Hydroxychloroquine 200 MG Tab PO SCH (08:21)
[2020-10-20] MEDS: Pantoprazole 40 MG Tab.CR PO SCH (08:21)
[2020-10-20] MEDS: Lisinopril 20 MG Tab PO SCH (08:21)
[2020-10-20] MEDS: Diltiazem 240 MG Cap.ER PO SCH (08:21)
[2020-10-20] MEDS: predniSONE 1 MG Tab PO SCH (08:22)
--- NOTE | 2020-10-20 09:08 | PCM.DCSUM1 ---
Discharge Summary - Discharge Data Discharge Date: 10/20/20 Discharge Disposition: Home, Self-Care 01 Condition: Good - Referral to Home Health Primary Care Physician: Abraham Ramirez MD - Patient Summary/Data Consults: Consultations 10/17/20 11:44 Consult to Physical Therapy [PT Evaluation and Treatment] [CONS] Routine - Discharge Plan Home Medications: Home Meds Magnesium 250 mg PO DAILY 05/07/14 [History] Furosemide [Lasix] 40 mg PO BID 03/08/16 [History] Dextrose [Glucose] 4 gm PO DAILY PRN 04/21/17 [History] Fish Oil/[place]-3 Fatty Acids [Fish Oil 1,000 MG] 1 cap PO DAILY 04/21/17 [History] Insulin Aspart [Novolog Flexpen] 1 unit SQ TID 04/21/17 [History] Lisinopril 20 mg PO DAILY 04/21/17 [History] Multivit,Calc,Mins/Iron/Folic [Thera-M] 1 each PO DAILY 04/21/17 [History] Ezetimibe [Zetia] 10 mg PO DAILY 05/09/18 [History] Omeprazole Magnesium [Prilosec Otc] 20 mg PO DAILY 05/09/18 [History] Pravastatin [Pravachol] 40 mg PO DAILY 05/09/18 [History] Ubidecarenone [Coq-10] 1 tab PO DAILY 05/09/18 [History] Leflunomide [Arava] 20 mg PO DAILY 05/30/19 [History] Metoprolol Tartrate [Lopressor] 50 mg PO BID 05/30/19 [History] Triamcinolone Acetonide [Triamcinolone Acetonide 0.1% Crm] 1 dose TOP BID PRN 05/30/19 [History] Insulin Glargine,Hum.Rec.Anlog [Basaglar Kwikpen U-100] 25 units SUBCUT BID 09/26/19 [History] Hydroxychloroquine [Plaquenil] 200 mg PO DAILY 09/02/20 [History] Apixaban [Eliquis] 5 mg PO BID #60 tablet 09/04/20 [Rx] Diltiazem [Dilacor XR] 240 mg PO DAILY #20 cap.er 09/04/20 [Rx] Acetaminophen [Tylenol] 325 mg PO Q6H PRN 10/16/20 [History] Ferrous Gluconate [Fergon] 1 tab PO DAILY 10/16/20 [History] LORazepam [Ativan] 0.5 mg PO QID PRN 10/16/20 [History] predniSONE [Prednisone] 1 mg PO DAILY 10/16/20 [History] Patient Handouts: Type 2 Diabetes Mellitus, Diagnosis, Adult, Heart Failure, Self Care, [id number], Home Oxygen Use, Adult, CPAP and BPAP Information, Living With Heart Failure, Heart Failure and Exercise Forms: ED Department Discharge Referrals: Abraham Ramirez MD [Primary Care Provider] - - General Info Date of Service: 10/20/20 Admission Dx/Problem (Free Text: Admission Diagnosis/Problem Admission Diagnosis/Problem Heart failure Subjective Update: She had an uneventful night although her glucose dropped in to the 60s but she was asymptomatic. No acute issues at this point. - Patient Data Vitals - Most Recent: Last Vital Signs Temp 36.1 C 10/20/20 05:00 Pulse 120 H 10/20/20 08:20 Resp 21 H 10/20/20 08:00 BP 142/83 H 10/20/20 08:21 Pulse Ox 99 10/20/20 08:00 Weight - Most Recent: 124.284 kg I&O - Last 24 hours: Intake & Output 10/19/20 10/20/20 10/20/20 22:59 06:59 14:59 Intake Total 740 490 118 Output Total 768 835 475 Balance -33 -062 -013 Lab Results - Last 24 hrs: Laboratory Results - last 24 hr 10/19/20 10/19/20 10/19/20 Range/Units 11:10 16:40 21:10 WBC (3.98-10.04) K/mm3 RBC (3.98-5.22) M/mm3 Hgb (11.2-15.7) gm/dl Hct (34.1-44.9) % MCV (79.4-94.8) fl MCH (25.6-32.2) pg MCHC (32.2-35.5) g/dl RDW Std Deviation (36.4-46.3) fL Plt Count (182-369) K/mm3 MPV (9.4-12.3) fl Neut % (Auto) (34.0-71.1) % Lymph % (Auto) (19.3-51.7) % [place] % (Auto) (4.7-12.5) % Eos % (Auto) (0.7-5.8) Baso % (Auto) (0.1-1.2) % Neut # (Auto) (1.56-6.13) K/mm3 Lymph # (Auto) (1.18-3.74) K/mm3 [place] # (Auto) (0.24-0.36) K/mm3 Eos # (Auto) (0.04-0.36) K/mm3 Baso # (Auto) (0.01-0.08) K/mm3 POC Glucose 135 H 99 99 (83-110) mg/dL 10/20/20 10/20/20 10/20/20 Range/Units 05:07 05:38 07:31 WBC (3.98-10.04) K/mm3 RBC (3.98-5.22) M/mm3 Hgb (11.2-15.7) gm/dl Hct (34.1-44.9) % MCV (79.4-94.8) fl MCH (25.6-32.2) pg MCHC (32.2-35.5) g/dl RDW Std Deviation (36.4-46.3) fL Plt Count (182-369) K/mm3 MPV (9.4-12.3) fl Neut % (Auto) (34.0-71.1) % Lymph % (Auto) (19.3-51.7) % [place] % (Auto) (4.7-12.5) % Eos % (Auto) (0.7-5.8) Baso % (Auto) (0.1-1.2) % Neut # (Auto) (1.56-6.13) K/mm3 Lymph # (Auto) (1.18-3.74) K/mm3 [place] # (Auto) (0.24-0.36) K/mm3 Eos # (Auto) (0.04-0.36) K/mm3 Baso # (Auto) (0.01-0.08) K/mm3 POC Glucose 53 L 94 69 L (83-110) mg/dL 10/20/20 10/20/20 Range/Units 07:47 08:50 WBC 5.74 (3.98-10.04) K/mm3 RBC 3.83 L (3.98-5.22) M/mm3 Hgb 11.1 L D (11.2-15.7) gm/dl Hct 36.1 (34.1-44.9) % MCV 94.3 (79.4-94.8) fl MCH 29.0 (25.6-32.2) pg MCHC 30.7 L (32.2-35.5) g/dl RDW Std Deviation 50.2 H (36.4-46.3) fL Plt Count 220 D (182-369) K/mm3 MPV 9.9 (9.4-12.3) fl Neut % (Auto) 64.3 (34.0-71.1) % Lymph % (Auto) 20.2 (19.3-51.7) % [place] % (Auto) 12.9 H (4.7-12.5) % Eos % (Auto) 2.3 (0.7-5.8) Baso % (Auto) 0.3 (0.1-1.2) % Neut # (Auto) 3.69 (1.56-6.13) K/mm3 Lymph # (Auto) 1.16 L (1.18-3.74) K/mm3 [place] # (Auto) 0.74 H (0.24-0.36) K/mm3 Eos # (Auto) 0.13 (0.04-0.36) K/mm3 Baso # (Auto) 0.02 (0.01-0.08) K/mm3 POC Glucose 92 (83-110) mg/dL RICHARD Results - Last 24 hrs: Microbiology 10/18/20 12:45 Wound Culture - Preliminary Leg, Right Gram Positive Cocci Med Orders - Current: Current Medications Acetaminophen (Tylenol) 650 mg PO Q6H PRN PRN Reason: Pain (mild 1-3) Apixaban (Eliquis) 5 mg PO BID [facility] Last Admin: 10/20/20 08:20 Dose: 5 mg Documented by: Dextrose (Glutose 15) 15 gm PO ASDIRECTED PRN PRN Reason: Hypoglycemia Diltiazem HCl (Dilacor Xr) 240 mg PO DAILY [facility] Last Admin: 10/20/20 08:21 Dose: 240 mg Documented by: Ezetimibe (Zetia) 10 mg PO BEDTIME [facility] Last Admin: 10/19/20 21:30 Dose: 10 mg Documented by: Fish Oil (Fish Oil) 1 gm PO DAILY [facility] Last Admin: 10/20/20 08:19 Dose: 1 gm Documented by: Furosemide (Lasix) 40 mg PO BIDDIURETIC [facility] Last Admin: 10/20/20 06:14 Dose: 40 mg Documented by: Hydroxychloroquine Sulfate (Plaquenil) 200 mg PO DAILY [facility] Last Admin: 10/20/20 08:21 Dose: 200 mg Documented by: Piperacillin Sod/Tazobactam (Sod 4.5 gm/ Sodium Chloride) 100 mls @ 25 mls/hr IV Q8H [facility] Last Admin: 10/20/20 02:25 Dose: 25 mls/hr Documented by: Insulin Glargine (Lantus) 25 unit SUBCUT BID [facility] Last Admin: 10/19/20 21:29 Dose: 25 units Documented by: Insulin Human Lispro (Humalog) 0 unit SUBCUT QIDACANDBED [facility]; Protocol Last Admin: 10/20/20 07:48 Dose: Not Given Documented by: Lisinopril (Prinivil) 20 mg PO DAILY [facility] Last Admin: 10/20/20 08:21 Dose: 20 mg Documented by: Lorazepam (Ativan) 0.5 mg PO QID PRN PRN Reason: Anxiety Last Admin: 10/19/20 21:32 Dose: 0.5 mg Documented by: Magnesium Oxide (Magnesium Oxide) 400 mg PO DAILY [facility] Last Admin: 10/20/20 08:20 Dose: 400 mg Documented by: Metoprolol Tartrate (Lopressor) 50 mg PO BID [facility] Last Admin: 10/20/20 08:20 Dose: 50 mg Documented by: Multivitamins (Thera) 1 each PO DAILY [facility] Last Admin: 10/20/20 08:19 Dose: 1 each Documented by: Leflunomide 20 Mg - (Pt's Own Medication) 0 mg PO QPM@2000 [facility] Last Admin: 10/19/20 21:07 Dose: 200 mg Documented by: Pantoprazole Sodium (Protonix) 40 mg PO DAILY@0800 [facility] Last Admin: 10/20/20 08:21 Dose: 40 mg Documented by: Prednisone (Prednisone) 1 mg PO DAILY [facility] Last Admin: 10/20/20 08:22 Dose: 1 mg Documented by: Simvastatin (Zocor) 20 mg PO BEDTIME [facility] Last Admin: 10/19/20 21:31 Dose: 20 mg Documented by: Triamcinolone Acetonide (Triamcinolone Acetonide 0.1% Crm) 0 gm TOP BID PRN PRN Reason: skin complications Last Admin: 10/18/20 13:00 Dose: 1 applic Documented by: Discontinued Medications Aspirin (Aspirin) 324 mg PO ONETIME ONE Stop: 10/16/20 15:24 Last Admin: 10/16/20 16:08 Dose: 324 mg Documented by: Diltiazem HCl (Cardizem) 10 mg IVPUSH ONETIME ONE Stop: 10/16/20 18:02 Last Admin: 10/16/20 18:08 Dose: 10 mg Documented by: Diltiazem HCl (Cardizem) 10 mg IVPUSH ONETIME ONE Stop: 10/16/20 18:51 Last Admin: 10/16/20 18:50 Dose: 10 mg Documented by: Ezetimibe (Zetia) 10 mg PO DAILY [facility] Last Admin: 10/17/20 08:18 Dose: Not Given Documented by: Furosemide (Lasix) 60 mg IVPUSH NOW ONE Stop: 10/16/20 13:15 Last Admin: 10/16/20 13:22 Dose: 60 mg Documented by: Furosemide (Lasix) 40 mg PO ONETIME ONE Stop: 10/19/20 21:01 Last Admin: 10/19/20 21:31 Dose: 40 mg Documented by: Nitroglycerin/Dextrose (Nitroglycerin 25 Mg/D5w 250 Ml) 25 mg in 250 mls @ 3 mls/hr IV TITRATE [facility]; Protocol Last Titration: 10/16/20 17:15 Dose: 10 mcg/min, 6 mls/hr Documented by: Diltiazem HCl 100 mg/ Sodium (Chloride) 100 mls @ 5 mls/hr IV TITRATE [facility]; Protocol Last Titration: 10/17/20 05:02 Dose: 5 mg/hr, 5 mls/hr Documented by: Furosemide 100 mg/ Sodium (Chloride) 100 mls @ 5 mls/hr IV TITRATE [facility]; Protocol Furosemide 100 mg/ Sodium (Chloride) 100 mls @ 5 mls/hr IV TITRATE [facility] Last Admin: 10/17/20 13:12 Dose: 15 mls/hr Documented by: Piperacillin Sod/Tazobactam (Sod 4.5 gm/ Sodium Chloride) 100 mls @ 200 mls/hr IV ONETIME ONE Stop: 10/17/20 18:40 Last Admin: 10/17/20 18:30 Dose: 200 mls/hr Documented by: Insulin Human Lispro (Humalog) 0 unit SUBCUT QIDACANDBED [facility]; Protocol Last Admin: 10/19/20 07:31 Dose: Not Given Documented by: Non-Formulary Medication (Ferrous Gluconate [Fergon]) 1 tab PO DAILY [facility] Non-Formulary Medication (Insulin Aspart) 10 unit SQ TID [facility] Last Admin: 10/16/20 22:35 Dose: Not Given Documented by: Leflunomide 20 Mg - (Pt's Own Medication) 0 mg PO DAILY [facility] Last Admin: 10/18/20 09:51 Dose: Not Given Documented by: Pantoprazole Sodium (Protonix) 40 mg PO ACBREAKFAST [facility] Prednisone (Prednisone) 1 mg PO WITHBREAKFAST [facility]
--- NOTE | 2020-10-20 09:13 | CR ---
Chest: Portable view of the chest was obtained. Comparison: Prior chest x-ray 10/17/20. Heart is enlarged. Upper mediastinum is normal. Pulmonary vessels are minimally increased. Left retrocardiac region is not well seen on this study. Lungs otherwise are clear. Bony structures are grossly intact. Impression: 1. Left retrocardiac region is not well seen on this study. 2. Stable cardiomegaly with minimal pulmonary vascular congestion remaining. Diagnostic code #3
[2020-10-20] MEDS: Insulin Glarg,Human.Rec.Analog 100 Unit/ML SUBCUT SCH ×2 (09:19→21:39)
--- NOTE | 2020-10-20 09:38 | PCM.PN ---
- General Info Date of Service: 10/20/20 Subjective Update: Had 2 episode of hypoglycemia but she was asymptomatic in bed according to her. She however does not feel good this morning specially right after she got up to go to the bathroom. She is afebrile w/o leukocytosis. Her CXR is about the same. Her BMP is pending. Functional Status: Reports: Pain Controlled, Tolerating Diet, Ambulating, Urinating - Review of Systems General: Reports: Weakness, Fatigue, Malaise. Denies: Fever, Chills HEENT: Denies: Dysphasia Pulmonary: Reports: Shortness of Breath Cardiovascular: Reports: Dyspnea on Exertion, Edema. Denies: Chest Pain, Lightheadedness Gastrointestinal: Denies: Abdominal Pain, Nausea, Vomiting Genitourinary: Reports: Frequency Musculoskeletal: Denies: Joint Pain Skin: Reports: Bruising Neurological: Denies: Confusion, Dizziness Psychiatric: Denies: Depression, Anxiety - Patient Data Vitals - Most Recent: Last Vital Signs Temp 36.1 C 10/20/20 05:00 Pulse 120 H 10/20/20 08:20 Resp 21 H 10/20/20 08:00 BP 142/83 H 10/20/20 08:21 Pulse Ox 99 10/20/20 08:00 Weight - Most Recent: 124.284 kg I&O - Last 24 Hours: Intake & Output 10/19/20 10/20/20 10/20/20 22:59 06:59 14:59 Intake Total 740 490 118 Output Total 765 665 475 Balance -15 -661 -174 Lab Results Last 24 Hours: Laboratory Results - last 24 hr 10/19/20 10/19/20 10/19/20 Range/Units 11:10 16:40 21:10 WBC (3.98-10.04) K/mm3 RBC (3.98-5.22) M/mm3 Hgb (11.2-15.7) gm/dl Hct (34.1-44.9) % MCV (79.4-94.8) fl MCH (25.6-32.2) pg MCHC (32.2-35.5) g/dl RDW Std Deviation (36.4-46.3) fL Plt Count (182-369) K/mm3 MPV (9.4-12.3) fl Neut % (Auto) (34.0-71.1) % Lymph % (Auto) (19.3-51.7) % [place] % (Auto) (4.7-12.5) % Eos % (Auto) (0.7-5.8) Baso % (Auto) (0.1-1.2) % Neut # (Auto) (1.56-6.13) K/mm3 Lymph # (Auto) (1.18-3.74) K/mm3 [place] # (Auto) (0.24-0.36) K/mm3 Eos # (Auto) (0.04-0.36) K/mm3 Baso # (Auto) (0.01-0.08) K/mm3 Sodium (136-145) mEq/L Potassium (3.5-5.1) mEq/L Chloride (98-107) mEq/L Carbon Dioxide (21-32) mEq/L Anion Gap (5-15) BUN (7-18) mg/dL Creatinine (0.55-1.02) mg/dL Est Cr Clr Drug Dosing mL/min Estimated GFR (MDRD) (>60) mL/min BUN/Creatinine Ratio (14-18) Glucose (83-115) mg/dL POC Glucose 135 H 99 99 (83-110) mg/dL Calcium (8.5-10.1) mg/dL Magnesium (1.8-2.4) mg/dl 10/20/20 10/20/20 10/20/20 Range/Units 05:07 05:38 07:31 WBC (3.98-10.04) K/mm3 RBC (3.98-5.22) M/mm3 Hgb (11.2-15.7) gm/dl Hct (34.1-44.9) % MCV (79.4-94.8) fl MCH (25.6-32.2) pg MCHC (32.2-35.5) g/dl RDW Std Deviation (36.4-46.3) fL Plt Count (182-369) K/mm3 MPV (9.4-12.3) fl Neut % (Auto) (34.0-71.1) % Lymph % (Auto) (19.3-51.7) % [place] % (Auto) (4.7-12.5) % Eos % (Auto) (0.7-5.8) Baso % (Auto) (0.1-1.2) % Neut # (Auto) (1.56-6.13) K/mm3 Lymph # (Auto) (1.18-3.74) K/mm3 [place] # (Auto) (0.24-0.36) K/mm3 Eos # (Auto) (0.04-0.36) K/mm3 Baso # (Auto) (0.01-0.08) K/mm3 Sodium (136-145) mEq/L Potassium (3.5-5.1) mEq/L Chloride (98-107) mEq/L Carbon Dioxide (21-32) mEq/L Anion Gap (5-15) BUN (7-18) mg/dL Creatinine (0.55-1.02) mg/dL Est Cr Clr Drug Dosing mL/min Estimated GFR (MDRD) (>60) mL/min BUN/Creatinine Ratio (14-18) Glucose (83-115) mg/dL POC Glucose 53 L 94 69 L (83-110) mg/dL Calcium (8.5-10.1) mg/dL Magnesium (1.8-2.4) mg/dl 10/20/20 10/20/20 10/20/20 Range/Units 07:47 08:50 08:50 WBC 5.74 (3.98-10.04) K/mm3 RBC 3.83 L (3.98-5.22) M/mm3 Hgb 11.1 L D (11.2-15.7) gm/dl Hct 36.1 (34.1-44.9) % MCV 94.3 (79.4-94.8) fl MCH 29.0 (25.6-32.2) pg MCHC 30.7 L (32.2-35.5) g/dl RDW Std Deviation 50.2 H (36.4-46.3) fL Plt Count 220 D (182-369) K/mm3 MPV 9.9 (9.4-12.3) fl Neut % (Auto) 64.3 (34.0-71.1) % Lymph % (Auto) 20.2 (19.3-51.7) % [place] % (Auto) 12.9 H (4.7-12.5) % Eos % (Auto) 2.3 (0.7-5.8) Baso % (Auto) 0.3 (0.1-1.2) % Neut # (Auto) 3.69 (1.56-6.13) K/mm3 Lymph # (Auto) 1.16 L (1.18-3.74) K/mm3 [place] # (Auto) 0.74 H (0.24-0.36) K/mm3 Eos # (Auto) 0.13 (0.04-0.36) K/mm3 Baso # (Auto) 0.02 (0.01-0.08) K/mm3 Sodium 145 (136-145) mEq/L Potassium 4.0 (3.5-5.1) mEq/L Chloride 104 (98-107) mEq/L Carbon Dioxide 32 (21-32) mEq/L Anion Gap 13.0 (5-15) BUN 47 H (7-18) mg/dL Creatinine 1.5 H (0.55-1.02) mg/dL Est Cr Clr Drug Dosing 21.84 mL/min Estimated GFR (MDRD) 33 (>60) mL/min BUN/Creatinine Ratio 31.3 H (14-18) Glucose 137 H (83-115) mg/dL POC Glucose 92 (83-110) mg/dL Calcium 9.4 (8.5-10.1) mg/dL Magnesium 2.3 (1.8-2.4) mg/dl 10/20/20 Range/Units 09:14 WBC (3.98-10.04) K/mm3 RBC (3.98-5.22) M/mm3 Hgb (11.2-15.7) gm/dl Hct (34.1-44.9) % MCV (79.4-94.8) fl MCH (25.6-32.2) pg MCHC (32.2-35.5) g/dl RDW Std Deviation (36.4-46.3) fL Plt Count (182-369) K/mm3 MPV (9.4-12.3) fl Neut % (Auto) (34.0-71.1) % Lymph % (Auto) (19.3-51.7) % [place] % (Auto) (4.7-12.5) % Eos % (Auto) (0.7-5.8) Baso % (Auto) (0.1-1.2) % Neut # (Auto) (1.56-6.13) K/mm3 Lymph # (Auto) (1.18-3.74) K/mm3 [place] # (Auto) (0.24-0.36) K/mm3 Eos # (Auto) (0.04-0.36) K/mm3 Baso # (Auto) (0.01-0.08) K/mm3 Sodium (136-145) mEq/L Potassium (3.5-5.1) mEq/L Chloride (98-107) mEq/L Carbon Dioxide (21-32) mEq/L Anion Gap (5-15) BUN (7-18) mg/dL Creatinine (0.55-1.02) mg/dL Est Cr Clr Drug Dosing mL/min Estimated GFR (MDRD) (>60) mL/min BUN/Creatinine Ratio (14-18) Glucose (83-115) mg/dL POC Glucose 181 H (83-110) mg/dL Calcium (8.5-10.1) mg/dL Magnesium (1.8-2.4) mg/dl Valerio Results Last 24 Hours: Microbiology 10/18/20 12:45 Wound Culture - Preliminary Leg, Right Gram Positive Cocci Med Orders - Current: Current Medications Acetaminophen (Tylenol) 650 mg PO Q6H PRN PRN Reason: Pain (mild 1-3) Apixaban (Eliquis) 5 mg PO BID [facility] Last Admin: 10/20/20 08:20 Dose: 5 mg Documented by: Dextrose (Glutose 15) 15 gm PO ASDIRECTED PRN PRN Reason: Hypoglycemia Diltiazem HCl (Dilacor Xr) 240 mg PO DAILY [facility] Last Admin: 10/20/20 08:21 Dose: 240 mg Documented by: Ezetimibe (Zetia) 10 mg PO BEDTIME [facility] Last Admin: 10/19/20 21:30 Dose: 10 mg Documented by: Fish Oil (Fish Oil) 1 gm PO DAILY [facility] Last Admin: 10/20/20 08:19 Dose: 1 gm Documented by: Furosemide (Lasix) 40 mg PO BIDDIURETIC [facility] Last Admin: 10/20/20 06:14 Dose: 40 mg Documented by: Hydroxychloroquine Sulfate (Plaquenil) 200 mg PO DAILY [facility] Last Admin: 10/20/20 08:21 Dose: 200 mg Documented by: Piperacillin Sod/Tazobactam (Sod 4.5 gm/ Sodium Chloride) 100 mls @ 25 mls/hr IV Q8H [facility] Last Admin: 10/20/20 02:25 Dose: 25 mls/hr Documented by: Insulin Glargine (Lantus) 25 unit SUBCUT BID [facility] Last Admin: 10/20/20 09:19 Dose: 25 units Documented by: Insulin Human Lispro (Humalog) 0 unit SUBCUT QIDACANDBED [facility]; Protocol Last Admin: 10/20/20 07:48 Dose: Not Given Documented by: Lisinopril (Prinivil) 20 mg PO DAILY [facility] Last Admin: 10/20/20 08:21 Dose: 20 mg Documented by: Lorazepam (Ativan) 0.5 mg PO QID PRN PRN Reason: Anxiety Last Admin: 10/19/20 21:32 Dose: 0.5 mg Documented by: Magnesium Oxide (Magnesium Oxide) 400 mg PO DAILY [facility] Last Admin: 10/20/20 08:20 Dose: 400 mg Documented by: Metoprolol Tartrate (Lopressor) 50 mg PO BID [facility] Last Admin: 10/20/20 08:20 Dose: 50 mg Documented by: Multivitamins (Thera) 1 each PO DAILY [facility] Last Admin: 10/20/20 08:19 Dose: 1 each Documented by: Leflunomide 20 Mg - (Pt's Own Medication) 0 mg PO QPM@2000 [facility] Last Admin: 10/19/20 21:07 Dose: 200 mg Documented by: Pantoprazole Sodium (Protonix) 40 mg PO DAILY@0800 [facility] Last Admin: 10/20/20 08:21 Dose: 40 mg Documented by: Prednisone (Prednisone) 1 mg PO DAILY [facility] Last Admin: 10/20/20 08:22 Dose: 1 mg Documented by: Simvastatin (Zocor) 20 mg PO BEDTIME [facility] Last Admin: 10/19/20 21:31 Dose: 20 mg Documented by: Triamcinolone Acetonide (Triamcinolone Acetonide 0.1% Crm) 0 gm TOP BID PRN PRN Reason: skin complications Last Admin: 10/18/20 13:00 Dose: 1 applic Documented by: Discontinued Medications Aspirin (Aspirin) 324 mg PO ONETIME ONE Stop: 10/16/20 15:24 Last Admin: 10/16/20 16:08 Dose: 324 mg Documented by: Diltiazem HCl (Cardizem) 10 mg IVPUSH ONETIME ONE Stop: 10/16/20 18:02 Last Admin: 10/16/20 18:08 Dose: 10 mg Documented by: Diltiazem HCl (Cardizem) 10 mg IVPUSH ONETIME ONE Stop: 10/16/20 18:51 Last Admin: 10/16/20 18:50 Dose: 10 mg Documented by: Ezetimibe (Zetia) 10 mg PO DAILY [facility] Last Admin: 10/17/20 08:18 Dose: Not Given Documented by: Furosemide (Lasix) 60 mg IVPUSH NOW ONE Stop: 10/16/20 13:15 Last Admin: 10/16/20 13:22 Dose: 60 mg Documented by: Furosemide (Lasix) 40 mg PO ONETIME ONE Stop: 10/19/20 21:01 Last Admin: 10/19/20 21:31 Dose: 40 mg Documented by: Nitroglycerin/Dextrose (Nitroglycerin 25 Mg/D5w 250 Ml) 25 mg in 250 mls @ 3 mls/hr IV TITRATE [facility]; Protocol Last Titration: 10/16/20 17:15 Dose: 10 mcg/min, 6 mls/hr Documented by: Diltiazem HCl 100 mg/ Sodium (Chloride) 100 mls @ 5 mls/hr IV TITRATE [facility]; Protocol Last Titration: 10/17/20 05:02 Dose: 5 mg/hr, 5 mls/hr Documented by: Furosemide 100 mg/ Sodium (Chloride) 100 mls @ 5 mls/hr IV TITRATE [facility]; Protocol Furosemide 100 mg/ Sodium (Chloride) 100 mls @ 5 mls/hr IV TITRATE [facility] Last Admin: 10/17/20 13:12 Dose: 15 mls/hr Documented by: Piperacillin Sod/Tazobactam (Sod 4.5 gm/ Sodium Chloride) 100 mls @ 200 mls/hr IV ONETIME ONE Stop: 10/17/20 18:40 Last Admin: 10/17/20 18:30 Dose: 200 mls/hr Documented by: Insulin Human Lispro (Humalog) 0 unit SUBCUT QIDACANDBED [facility]; Protocol Last Admin: 10/19/20 07:31 Dose: Not Given Documented by: Non-Formulary Medication (Ferrous Gluconate [Fergon]) 1 tab PO DAILY [facility] Non-Formulary Medication (Insulin Aspart) 10 unit SQ TID [facility] Last Admin: 10/16/20 22:35 Dose: Not Given Documented by: Leflunomide 20 Mg - (Pt's Own Medication) 0 mg PO DAILY [facility] Last Admin: 10/18/20 09:51 Dose: Not Given Documented by: Pantoprazole Sodium (Protonix) 40 mg PO ACBREAKFAST [facility] Prednisone (Prednisone) 1 mg PO WITHBREAKFAST [facility] - Exam General: Alert, Oriented, Other (Super Obese) HEENT: Pupils Equal, Pupils Reactive, EOMI, Mucous Membr. Moist/[place] Neck: Supple, No JVD, Other (short and thick) Lungs: Normal Respiratory Effort, Decreased Breath Sounds Cardiovascular: Irregular Rhythm GI/Abdominal Exam: Normal Bowel Sounds, Soft, Non-Tender, No Organomegaly, No Distention, No Abnormal Bruit, Other (Obese) (Female) Exam: Deferred Back Exam: Normal Inspection, Decreased Range of Motion Extremities: Normal Range of Motion, Non-Tender, Pedal Edema Peripheral Pulses: 1+: Dorsalis Pedis (L), Dorsalis Pedis (R) Skin: Warm, Dry, Intact, Ecchymosis Wound/Incisions: Healing Well, No Drainage, Erythema Improving Neurological: No New Focal Deficit. No: Normal Gait Psy/Mental Status: Alert, Normal Affect, Normal Mood Sepsis Event Note - Evaluation Sepsis Screening Result: No Definite Risk - Focused Exam Vital Signs: Vital Signs Temp Pulse Resp BP BP Pulse Ox Pulse Ox 10/20/20 08:21 142/83 H 10/20/20 08:20 120 H 142/83 H 10/20/20 08:00 21 H 99 10/20/20 07:30 29 H 99 10/20/20 07:00 36 H 93 L 10/20/20 06:30 33 H 92 L 10/20/20 06:00 34 H 96 10/20/20 05:30 26 H 98 10/20/20 05:00 36.1 C 97 20 142/70 H 99 10/20/20 04:58 23 H 142/70 H 99 10/20/20 04:57 14 10/20/20 04:30 29 H 99 10/20/20 04:00 13 96 10/20/20 03:30 25 H 92 L 10/20/20 03:00 17 95 10/20/20 02:30 16 98 10/20/20 02:00 0 L 98 10/20/20 01:30 25 H 98 10/20/20 01:00 16 98 10/20/20 00:30 24 H 97 10/20/20 00:27 36.1 C 93 21 H 120/83 98 10/20/20 00:24 21 H 120/83 98 10/20/20 00:23 17 98 10/20/20 00:02 99 10/20/20 00:00 23 H 99 10/19/20 23:30 24 H 98 10/19/20 23:00 8 L 95 10/19/20 22:30 21 H 97 10/19/20 22:01 96 10/19/20 22:00 22 H - Problem List Review Problem List Initiated/Reviewed/Updated: Yes - My Orders Last 24 Hours: My Active Orders 10/19/20 09:00 Fish Oil/Foristell-3 Fatty Acids [Fish Oil] 1 gm PO DAILY - Assessment Assessment:: Assessment Acute: 80-year-old female with history of new onset A. fib in August 2020 and worsening heart failure since . * In the emergency department patient was found To be in rate controlled atrial fibrillation with a rate of 73 and nonspecific T wave abnormalities. There was a prolonged QT interval. Patient was then started on nitroglycerin for shortness of breath and chest pain. Unfortunately, patient did develop tachycardia and had to have nitroglycerin stopped when she presented to the ICU. * Lasix 60 mg IV in the emergency department. * EKG on 09/22/2020: Rhythm is atrial fibrillation. Left ventricular systolic function was at the low normal of 50 to 55%. Left ventricle mild to moderately increased concentric hypertrophy. Mitral valve regurgitation appears moderate. Left atrium is mild to moderately dilated * Troponin normal at less than 0.017 * BNP 3283-->2609 * Rate control agents: Cardizem 240 mg CD po daily and Metoprolol Tartrate 50 mg po BID * Eliquis 5 mg po BID for stroke prophylaxis * HR is more controlled Hyperglycemia Type 2 diabetes, insulin-dependent. Diabetic neuropathy. Diabetic foot ulcer/cellulitis. * Hemoglobin A1c was 6.60 on 09/04/2020. TSH was 0.536 on 09/04/2020 * Lantus 25 units twice daily, NovoLog 10 units 3 times daily, sliding scale insulin * A1C is 7.60; CRP if 6.0 * BS is well controlled * Continue IV Zosyn 4.5 mg IV Q8H * Consult wound care in AM; services not available today * General Surgery consult pending recommendations from wound care Normocytic, normochromic anemia of chronic disease. 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 * Hemoglobin 10.6--> 9.1grams stable * Creatinine 1.5, BUN 48, estimated GFR 33 which is stable since August * No active bleeding or melena Thrombocytopenia. * Platelet of 145K * She is on Elqiuis for stroke prophylaxis * No active bleeding * We will monitor Mild Hypernatremia, resolved. * Na of 146 * Will monitor Super Obese. 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 Titrate to urine output between 100 - 200 ml/h * Hold evening metoprolol and restart in the morning if rate controlled and heart failure is improved * Restart Cardizem CD 240 mg in the morning if rate control * Not rate controlled consider digoxin in the morning. * When patient is normovolemic and back on her home medications I would recommend monitoring for 12 to 24 hours to see if she needs adjustment to her rate medications. * Strict I's and O's and daily weights * VTE prophylaxis with Eliquis * CODE STATUS DNR/DNI 10/17/2020 80-year-old female with atrial fibrillation, heart failure, and right plantar foot ulcer. It appears that the right foot ulcer may be showing signs of cellulitis. We will start Zosyn and have wound therapy evaluated. If wound therapy is unable we may have to consult surgery for sharp debridement. Also, patient is having significant improvement in heart failure symptoms. Lasix drip will be stopped as well as Cardizem drip. Restart home medications including Cardizem CD 240 mg daily and metoprolol tartrate 50 mg twice daily.Blood sugars are well controlled with bedside blood sugars between 90 and 153 hemoglobin did drop overnight to 8.8. Continue to monitor. Kidney function is stable with GFR 33. CRP did increase to 6.0 with normal WBC of 6.7. Plan to continue to monitor over the next 24 hours. Also may need more aggressive treatment of the right plantar diabetic ulcer. 10/18/2020 * Continue rate control agents and intravenous antibiotic * FT4 in AM * Resume Lasix 40 mg po BID * [employer] Helper's consult for weight management * PT/OT eval * Wound care consult * Strict I's and O's and daily weights * VTE prophylaxis with Eliquis * CODE STATUS DNR/DNI * LOS > 96 hrs heart rate is not fully controlled and wound care consult 10/19/2020 * Continue rate control agents and intravenous antibiotic * FT4 in normal * Continue home dose Lasix 40 mg po BID * Hold Leflunomide * CPAP at night and continue baseline 2L NC * [employer] Helper's consult for weight management * PT/OT eval * Encourage to ambulate to assess how her heart rate respond to her rate control regimen * Wound care consult-seen this AM; no surgical consult recommendations * Strict I's and O's and daily weights * VTE prophylaxis with Eliquis * CODE STATUS DNR/DNI * Possible discharge in 1-2 days if stable with HHS: PT/OT/Nursing and HSE * LOS > 96 hrs heart rate is not fully controlled and wound care consult 10/20/2020 * She does not feel well this AM also had hypoglycemia x 2-->we will cancel discharge * Continue rate control agents and intravenous antibiotic * Continue home dose Lasix 40 mg po BID * Adjust insulin regimen * Switch IV antibiotic to oral for GP coverage * CPAP at night and continue baseline 2L NC * [employer] Helper's consult for weight management * PT/OT for deconditioning * Strict I's and O's and daily weights * VTE prophylaxis with Eliquis * CODE STATUS DNR/DNI * She is not back to baseline and weak--> recommend SNF if agreeable * LOS > 96 hrs heart rate is not fully controlled and wound care consult
[2020-10-20] MEDS: Amoxicillin/Clavulanate K 875-125 MG Tab PO SCH (20:33)
[2020-10-20] MEDS: Ezetimibe 10 MG Tab PO SCH (20:34)
[2020-10-20] MEDS: LEFLUNOMIDE 20 MG PO SCH (20:34)
[2020-10-20] MEDS: Simvastatin 20 MG Tab PO SCH (20:34)
[2020-10-21] MEDS: Furosemide 40 MG Tab PO SCH (06:43)
--- NOTE | 2020-10-21 07:58 | PCM.DCSUM1 ---
Discharge Summary - Hospital Course Brief History: This is a 80 yo elderly white female with past medical hx/o AR, Cataract, Impaired Vision, Afib, H/o Arrhythmia, HF, heart Murmur, Hypertension, HLD, Hx/o NM/NSTEMI, Pulmonary HTN, PVD, Aortic Stenosis, Hx/o Cor Pulmonale, LEILANI, Chronic Respiratory Failure: 2L NC/day and 6L NC at night, Hx/o PUD, Hx/o Hemorrhagic Gastritis, Urinary Incontinence, OA/RA, DM2, MYAH, Diabetic Foot Ulcer, Cellultis, Anxiety, Depression and Morbid Obesity who presented with respiratory complaints associated with increased edema as well as weight gain and was admitted for Afib with RVR and Acute Congestive Heart Failure. Diagnosis: Stroke: No Modified Valarie Scale: No Symptoms at All Modified Jack Scale Score: 0 - Discharge Data Discharge Date: 10/21/20 Discharge Disposition: Home, W Home Health Agency 06 Condition: Good - Referral to Home Health Date of Face to Face Encounter: 10/21/20 Reason for Homebound Status: Pt has CHF, CKD Stage 3 and Afib with RVR. Pt is in need of HHS for: low activity tolerance, functional mobility, standing balance, strengths, and transfers. Nursing for vitals, skilled assessment, medications education, and disease management. PT for balance training. OT for activity tolerance, self care training, ADL's and transfer training. She is currently homebound related to being walker dependent, decreased activity tolerance, and a decreased level of endurance. Patient will be followed by her PCP, Dr. Ramirez. Primary Care Physician: Abraham Ramirez MD - Patient Summary/Data Operative Procedure(s) Performed: None Complications: None Consults: Consultations 10/17/20 11:44 Consult to Physical Therapy [PT Evaluation and Treatment] [CONS] Routine Recommended Follow-up Testing/Procedures: None - Patient Instructions Diet: Heart Healthy Diet, Diabetic Diet Fluid Restriction: 2000 mL Activity: As Tolerated Driving: Do Not Drive Showering/Bathing: May Shower Wound/Incision Care: Keep Operative Site/Wound Site Clean and Dry Notify Provider of: Fever, Increased Pain, Swelling and Redness, Drainage, Nausea and/or Vomiting - Discharge Plan *PRESCRIPTION DRUG MONITORING PROGRAM REVIEWED*: Not Applicable *COPY OF PRESCRIPTION DRUG MONITORING REPORT IN PATIENT MARY ALICE: Not Applicable Prescriptions/Med Rec: Amoxicillin/Clavulanate K [Augmentin 999-125 MG] 1 tab PO BID #9 tablet Saccharomyces Boulardii [Florastor] 250 mg PO BID #9 cap Home Medications: Home Meds Magnesium 250 mg PO DAILY 05/07/14 [History] Furosemide [Lasix] 40 mg PO BID 03/08/16 [History] Dextrose [Glucose] 4 gm PO DAILY PRN 04/21/17 [History] Fish Oil/[place]-3 Fatty Acids [Fish Oil 1,000 MG] 1 cap PO DAILY 04/21/17 [History] Insulin Aspart [Novolog Flexpen] 1 unit SQ TID 04/21/17 [History] Lisinopril 20 mg PO DAILY 04/21/17 [History] Multivit,Calc,Mins/Iron/Folic [Thera-M] 1 each PO DAILY 04/21/17 [History] Ezetimibe [Zetia] 10 mg PO DAILY 05/09/18 [History] Omeprazole Magnesium [Prilosec Otc] 20 mg PO DAILY 05/09/18 [History] Pravastatin [Pravachol] 40 mg PO DAILY 05/09/18 [History] Ubidecarenone [Coq-10] 1 tab PO DAILY 05/09/18 [History] Leflunomide [Arava] 20 mg PO DAILY 05/30/19 [History] Metoprolol Tartrate [Lopressor] 50 mg PO BID 05/30/19 [History] Triamcinolone Acetonide [Triamcinolone Acetonide 0.1% Crm] 1 dose TOP BID PRN 05/30/19 [History] Hydroxychloroquine [Plaquenil] 200 mg PO DAILY 09/02/20 [History] Apixaban [Eliquis] 5 mg PO BID #60 tablet 09/04/20 [Rx] Acetaminophen [Tylenol] 325 mg PO Q6H PRN 10/16/20 [History] Ferrous Gluconate [Fergon] 1 tab PO DAILY 10/16/20 [History] LORazepam [Ativan] 0.5 mg PO QID PRN 10/16/20 [History] predniSONE [Prednisone] 1 mg PO DAILY 10/16/20 [History] Amoxicillin/Clavulanate K [Augmentin 875-125 MG] 1 tab PO BID #9 tablet 10/21/20 [Rx] Diltiazem [Dilacor XR] 240 mg PO DAILY #30 cap.er 10/21/20 [Rx] Insulin Glargine,Hum.Rec.Anlog [Basaglar Kwikpen U-100] 20 units SUBCUT BID #0 10/21/20 [Rx] Saccharomyces Boulardii [Florastor] 250 mg PO BID #9 cap 10/21/20 [Rx] Oxygen Therapy Mode: Room Air Patient Handouts: Type 2 Diabetes Mellitus, Diagnosis, Adult, Cellulitis, Adult, Heart Failure, Self Care, [id number], Home Oxygen Use, Adult, CPAP and BPAP Information, Living With Heart Failure, Heart Failure and Exercise, Obesity, Adult, [id number], Preventing Unhealthy Weight Gain, Adult Referrals: Abraham Ramirez MD [Primary Care Provider] - - Discharge Summary/Plan Comment DC Time >30 min.: No Discharge Summary/Plan Comment: Discharge to Home with [facility] - General Info Date of Service: 10/21/20 Admission Dx/Problem (Free Text: Admission Diagnosis/Problem Admission Diagnosis/Problem Heart failure Subjective Update: Had 2 episode of hypoglycemia but she was asymptomatic in bed according to her. She however does not feel good this morning specially right after she got up to go to the bathroom. She is afebrile w/o leukocytosis. Her CXR is about the same. Her BMP is pending. Functional Status: Reports: Pain Controlled, Tolerating Diet, Ambulating, Urinating - Review of Systems General: Denies: Fever, Chills HEENT: Denies: Headaches, Sore Throat Pulmonary: Reports: Cough. Denies: Shortness of Breath Cardiovascular: Denies: Chest Pain Gastrointestinal: Denies: Abdominal Pain, Nausea, Vomiting Genitourinary: Reports: Frequency Musculoskeletal: Denies: Leg Pain Skin: Denies: Cyanosis, Rash Neurological: Reports: Gait Disturbance. Denies: Confusion, Dizziness, Syncope, Difficulty Walking Psychiatric: Denies: Depression, Anxiety - Patient Data Vitals - Most Recent: Last Vital Signs Temp 36.7 C 10/21/20 04:35 Pulse 80 10/21/20 04:35 Resp 22 H 10/21/20 04:35 BP 146/67 H 10/21/20 04:35 Pulse Ox 94 L 10/21/20 04:35 Weight - Most Recent: 128.457 kg I&O - Last 24 hours: Intake & Output 10/20/20 10/21/20 10/21/20 22:59 06:59 14:59 Intake Total 420 300 Balance 420 300 Lab Results - Last 24 hrs: Laboratory Results - last 24 hr 10/20/20 10/20/20 10/20/20 Range/Units 07:47 08:50 08:50 WBC 5.74 (3.98-10.04) K/mm3 RBC 3.83 L (3.98-5.22) M/mm3 Hgb 11.1 L D (11.2-15.7) gm/dl Hct 36.1 (34.1-44.9) % MCV 94.3 (79.4-94.8) fl MCH 29.0 (25.6-32.2) pg MCHC 30.7 L (32.2-35.5) g/dl RDW Std Deviation 50.2 H (36.4-46.3) fL Plt Count 220 D (182-369) K/mm3 MPV 9.9 (9.4-12.3) fl Neut % (Auto) 64.3 (34.0-71.1) % Lymph % (Auto) 20.2 (19.3-51.7) % Smith % (Auto) 12.9 H (4.7-12.5) % Eos % (Auto) 2.3 (0.7-5.8) Baso % (Auto) 0.3 (0.1-1.2) % Neut # (Auto) 3.69 (1.56-6.13) K/mm3 Lymph # (Auto) 1.16 L (1.18-3.74) K/mm3 Smith # (Auto) 0.74 H (0.24-0.36) K/mm3 Eos # (Auto) 0.13 (0.04-0.36) K/mm3 Baso # (Auto) 0.02 (0.01-0.08) K/mm3 Sodium 145 (136-145) mEq/L Potassium 4.0 (3.5-5.1) mEq/L Chloride 104 (98-107) mEq/L Carbon Dioxide 32 (21-32) mEq/L Anion Gap 13.0 (5-15) BUN 47 H (7-18) mg/dL Creatinine 1.5 H (0.55-1.02) mg/dL Est Cr Clr Drug Dosing 21.84 mL/min Estimated GFR (MDRD) 33 (>60) mL/min BUN/Creatinine Ratio 31.3 H (14-18) Glucose 137 H (83-115) mg/dL POC Glucose 92 (83-110) mg/dL Calcium 9.4 (8.5-10.1) mg/dL Magnesium 2.3 (1.8-2.4) mg/dl 10/20/20 10/20/20 10/20/20 Range/Units 09:14 11:27 17:49 WBC (3.98-10.04) K/mm3 RBC (3.98-5.22) M/mm3 Hgb (11.2-15.7) gm/dl Hct (34.1-44.9) % MCV (79.4-94.8) fl MCH (25.6-32.2) pg MCHC (32.2-35.5) g/dl RDW Std Deviation (36.4-46.3) fL Plt Count (182-369) K/mm3 MPV (9.4-12.3) fl Neut % (Auto) (34.0-71.1) % Lymph % (Auto) (19.3-51.7) % Smith % (Auto) (4.7-12.5) % Eos % (Auto) (0.7-5.8) Baso % (Auto) (0.1-1.2) % Neut # (Auto) (1.56-6.13) K/mm3 Lymph # (Auto) (1.18-3.74) K/mm3 Smith # (Auto) (0.24-0.36) K/mm3 Eos # (Auto) (0.04-0.36) K/mm3 Baso # (Auto) (0.01-0.08) K/mm3 Sodium (136-145) mEq/L Potassium (3.5-5.1) mEq/L Chloride (98-107) mEq/L Carbon Dioxide (21-32) mEq/L Anion Gap (5-15) BUN (7-18) mg/dL Creatinine (0.55-1.02) mg/dL Est Cr Clr Drug Dosing mL/min Estimated GFR (MDRD) (>60) mL/min BUN/Creatinine Ratio (14-18) Glucose (83-115) mg/dL POC Glucose 181 H 229 H 128 H (83-110) mg/dL Calcium (8.5-10.1) mg/dL Magnesium (1.8-2.4) mg/dl 10/20/20 10/21/20 10/21/20 Range/Units 21:19 00:13 06:49 WBC (3.98-10.04) K/mm3 RBC (3.98-5.22) M/mm3 Hgb (11.2-15.7) gm/dl Hct (34.1-44.9) % MCV (79.4-94.8) fl MCH (25.6-32.2) pg MCHC (32.2-35.5) g/dl RDW Std Deviation (36.4-46.3) fL Plt Count (182-369) K/mm3 MPV (9.4-12.3) fl Neut % (Auto) (34.0-71.1) % Lymph % (Auto) (19.3-51.7) % Smith % (Auto) (4.7-12.5) % Eos % (Auto) (0.7-5.8) Baso % (Auto) (0.1-1.2) % Neut # (Auto) (1.56-6.13) K/mm3 Lymph # (Auto) (1.18-3.74) K/mm3 Smith # (Auto) (0.24-0.36) K/mm3 Eos # (Auto) (0.04-0.36) K/mm3 Baso # (Auto) (0.01-0.08) K/mm3 Sodium (136-145) mEq/L Potassium (3.5-5.1) mEq/L Chloride (98-107) mEq/L Carbon Dioxide (21-32) mEq/L Anion Gap (5-15) BUN (7-18) mg/dL Creatinine (0.55-1.02) mg/dL Est Cr Clr Drug Dosing mL/min Estimated GFR (MDRD) (>60) mL/min BUN/Creatinine Ratio (14-18) Glucose (83-115) mg/dL POC Glucose 197 H 134 H 88 (83-110) mg/dL Calcium (8.5-10.1) mg/dL Magnesium (1.8-2.4) mg/dl RICHARD Results - Last 24 hrs: Microbiology 10/18/20 12:45 Wound Culture - Final Leg, Right Staphylococcus Aureus Med Orders - Current: Current Medications Acetaminophen (Tylenol) 650 mg PO Q6H PRN PRN Reason: Pain (mild 1-3) Amoxicillin/Clavulanate Potassium (Augmentin 875 Mg/125 Mg) 1 tab PO BID [facility] Last Admin: 10/20/20 20:33 Dose: 1 tab Documented by: Apixaban (Eliquis) 5 mg PO BID [facility] Last Admin: 10/20/20 20:34 Dose: 5 mg Documented by: Dextrose (Glutose 15) 15 gm PO ASDIRECTED PRN PRN Reason: Hypoglycemia Diltiazem HCl (Dilacor Xr) 240 mg PO DAILY [facility] Last Admin: 10/20/20 08:21 Dose: 240 mg Documented by: Ezetimibe (Zetia) 10 mg PO BEDTIME [facility] Last Admin: 10/20/20 20:34 Dose: 10 mg Documented by: Fish Oil (Fish Oil) 1 gm PO DAILY [facility] Last Admin: 10/20/20 08:19 Dose: 1 gm Documented by: Furosemide (Lasix) 40 mg PO BIDDIURETIC [facility] Last Admin: 10/21/20 06:43 Dose: 40 mg Documented by: Hydroxychloroquine Sulfate (Plaquenil) 200 mg PO DAILY [facility] Last Admin: 10/20/20 08:21 Dose: 200 mg Documented by: Insulin Glargine (Lantus) 20 unit SUBCUT BID [facility] Last Admin: 10/20/20 21:39 Dose: 20 unit Documented by: Insulin Human Lispro (Humalog) 0 unit SUBCUT QIDACANDBED [facility]; Protocol Last Admin: 10/21/20 07:07 Dose: Not Given Documented by: Lisinopril (Prinivil) 20 mg PO DAILY [facility] Last Admin: 10/20/20 08:21 Dose: 20 mg Documented by: Lorazepam (Ativan) 0.5 mg PO QID PRN PRN Reason: Anxiety Last Admin: 10/19/20 21:32 Dose: 0.5 mg Documented by: Magnesium Oxide (Magnesium Oxide) 400 mg PO DAILY [facility] Last Admin: 10/20/20 08:20 Dose: 400 mg Documented by: Metoprolol Tartrate (Lopressor) 50 mg PO BID [facility] Last Admin: 10/20/20 20:34 Dose: 50 mg Documented by: Multivitamins (Thera) 1 each PO DAILY [facility] Last Admin: 10/20/20 08:19 Dose: 1 each Documented by: Leflunomide 20 Mg - (Pt's Own Medication) 0 mg PO QPM@2000 [facility] Last Admin: 10/20/20 20:34 Dose: 20 mg Documented by: Pantoprazole Sodium (Protonix) 40 mg PO DAILY@0800 [facility] Last Admin: 10/20/20 08:21 Dose: 40 mg Documented by: Prednisone (Prednisone) 1 mg PO DAILY [facility] Last Admin: 10/20/20 08:22 Dose: 1 mg Documented by: Simvastatin (Zocor) 20 mg PO BEDTIME [facility] Last Admin: 10/20/20 20:34 Dose: 20 mg Documented by: Triamcinolone Acetonide (Triamcinolone Acetonide 0.1% Crm) 0 gm TOP BID PRN PRN Reason: skin complications Last Admin: 10/18/20 13:00 Dose: 1 applic Documented by: Discontinued Medications Aspirin (Aspirin) 324 mg PO ONETIME ONE Stop: 10/16/20 15:24 Last Admin: 10/16/20 16:08 Dose: 324 mg Documented by: Diltiazem HCl (Cardizem) 10 mg IVPUSH ONETIME ONE Stop: 10/16/20 18:02 Last Admin: 10/16/20 18:08 Dose: 10 mg Documented by: Diltiazem HCl (Cardizem) 10 mg IVPUSH ONETIME ONE Stop: 10/16/20 18:51 Last Admin: 10/16/20 18:50 Dose: 10 mg Documented by: Ezetimibe (Zetia) 10 mg PO DAILY [facility] Last Admin: 10/17/20 08:18 Dose: Not Given Documented by: Furosemide (Lasix) 60 mg IVPUSH NOW ONE Stop: 10/16/20 13:15 Last Admin: 10/16/20 13:22 Dose: 60 mg Documented by: Furosemide (Lasix) 40 mg PO ONETIME ONE Stop: 10/19/20 21:01 Last Admin: 10/19/20 21:31 Dose: 40 mg Documented by: Nitroglycerin/Dextrose (Nitroglycerin 25 Mg/D5w 250 Ml) 25 mg in 250 mls @ 3 mls/hr IV TITRATE [facility]; Protocol Last Titration: 10/16/20 17:15 Dose: 10 mcg/min, 6 mls/hr Documented by: Diltiazem HCl 100 mg/ Sodium (Chloride) 100 mls @ 5 mls/hr IV TITRATE [facility]; Protocol Last Titration: 10/17/20 05:02 Dose: 5 mg/hr, 5 mls/hr Documented by: Furosemide 100 mg/ Sodium (Chloride) 100 mls @ 5 mls/hr IV TITRATE [facility]; Protocol Furosemide 100 mg/ Sodium (Chloride) 100 mls @ 5 mls/hr IV TITRATE [facility] Last Admin: 10/17/20 13:12 Dose: 15 mls/hr Documented by: Piperacillin Sod/Tazobactam (Sod 4.5 gm/ Sodium Chloride) 100 mls @ 25 mls/hr IV Q8H [facility] Stop: 10/20/20 15:00 Last Admin: 10/20/20 10:28 Dose: 25 mls/hr Documented by: Piperacillin Sod/Tazobactam (Sod 4.5 gm/ Sodium Chloride) 100 mls @ 200 mls/hr IV ONETIME ONE Stop: 10/17/20 18:40 Last Admin: 10/17/20 18:30 Dose: 200 mls/hr Documented by: Insulin Glargine (Lantus) 25 unit SUBCUT BID [facility] Last Admin: 10/20/20 09:19 Dose: 25 units Documented by: Insulin Human Lispro (Humalog) 0 unit SUBCUT QIDACANDBED [facility]; Protocol Last Admin: 10/19/20 07:31 Dose: Not Given Documented by: Non-Formulary Medication (Ferrous Gluconate [Fergon]) 1 tab PO DAILY [facility] Non-Formulary Medication (Insulin Aspart) 10 unit SQ TID [facility] Last Admin: 10/16/20 22:35 Dose: Not Given Documented by: Leflunomide 20 Mg - (Pt's Own Medication) 0 mg PO DAILY [facility] Last Admin: 10/18/20 09:51 Dose: Not Given Documented by: Pantoprazole Sodium (Protonix) 40 mg PO ACBREAKFAST [facility] Prednisone (Prednisone) 1 mg PO WITHBREAKFAST [facility] - Exam Quality Assessment: Reports: Supplemental Oxygen General: Reports: Alert, Oriented, Cooperative, No Acute Distress, Other (Super Obese) HEENT: Reports: Pupils Equal, Pupils Reactive, EOMI, Mucous Membr. Moist/[place] Neck: Reports: Supple Lungs: Reports: Normal Respiratory Effort, Decreased Breath Sounds GI/Abdominal Exam: Normal Bowel Sounds, Soft, Non-Tender, No Organomegaly, No Distention, No Abnormal Bruit, Other (Obese) (Female) Exam: Deferred Rectal (Female) Exam: Deferred Back Exam: Reports: Normal Inspection, Decreased Range of Motion Extremities: Normal Inspection, Normal Range of Motion, Non-Tender, Normal Capillary Refill, Pedal Edema, Other (lower leg edema on both legs) Neurological: Reports: No New Focal Deficit Psy/Mental Status: Reports: Alert, Normal Affect, Normal Mood
[2020-10-21] MEDS: Multivitamins,Therapeutic Tab PO SCH (08:26)
[2020-10-21] MEDS: Metoprolol Tartrate 50 MG Tab PO SCH (08:26)
[2020-10-21] MEDS: Lisinopril 20 MG Tab PO SCH (08:26)
[2020-10-21] MEDS: Fish Oil/Omega-3 Fatty Acids 1 Gm Cap PO SCH (08:26)
[2020-10-21] MEDS: Amoxicillin/Clavulanate K 875-125 MG Tab PO SCH (08:26)
[2020-10-21] MEDS: Hydroxychloroquine 200 MG Tab PO SCH (08:26)
[2020-10-21] MEDS: Magnesium Oxide 400 MG Tab PO SCH (08:26)
[2020-10-21] MEDS: predniSONE 1 MG Tab PO SCH (08:26)
[2020-10-21] MEDS: Diltiazem 240 MG Cap.ER PO SCH (08:26)
[2020-10-21] MEDS: Apixaban 5 MG Tab PO SCH (08:26)
[2020-10-21] MEDS: Pantoprazole 40 MG Tab.CR PO SCH (08:26)
[2020-10-21 08:27] VITALS: BP 128/81; PULSE 122
[2020-10-21] MEDS: Insulin Glarg,Human.Rec.Analog 100 Unit/ML SUBCUT SCH (08:28)
== END 2020-10-21 10:08 | disposition home health service (06) | DRG 291 ==
LOC: JD.ED 11:26 → JD.ICU 15:34
PROVIDERS: ADMIT Family Medicine; ATTEND Family Medicine
DX: I11.0 Hypertensive heart disease with heart failure (principal); I50.9 Heart failure, unspecified; I13.0 Hypertensive heart and chronic kidney disease with heart failure and stage 1 through stage 4 chronic kidney disease, or unspecified chronic kidney disease; I50.33 Acute on chronic diastolic (congestive) heart failure; E87.0 Hyperosmolality and hypernatremia; L97.419 Non-pressure chronic ulcer of right heel and midfoot with unspecified severity; I73.9 Peripheral vascular disease, unspecified; L03.115 Cellulitis of right lower limb; I35.0 Nonrheumatic aortic (valve) stenosis; G47.30 Sleep apnea, unspecified; J96.10 Chronic respiratory failure, unspecified whether with hypoxia or hypercapnia; Z68.43 Body mass index [BMI] 50.0-59.9, adult; E11.22 Type 2 diabetes mellitus with diabetic chronic kidney disease; N18.32 Chronic kidney disease, stage 3b; Z66 Do not resuscitate; Z20.822 Contact with and (suspected) exposure to COVID-19; D63.1 Anemia in chronic kidney disease; I48.91 Unspecified atrial fibrillation; E11.9 Type 2 diabetes mellitus without complications; D64.9 Anemia, unspecified; Z88.6 Allergy status to analgesic agent; E11.42 Type 2 diabetes mellitus with diabetic polyneuropathy; Z79.01 Long term (current) use of anticoagulants; E11.621 Type 2 diabetes mellitus with foot ulcer; D69.6 Thrombocytopenia, unspecified; E11.649 Type 2 diabetes mellitus with hypoglycemia without coma; H54.7 Unspecified visual loss; E11.51 Type 2 diabetes mellitus with diabetic peripheral angiopathy without gangrene; I27.20 Pulmonary hypertension, unspecified; R53.81 Other malaise; I34.0 Nonrheumatic mitral (valve) insufficiency; F41.9 Anxiety disorder, unspecified; F32.9 Major depressive disorder, single episode, unspecified; M19.90 Unspecified osteoarthritis, unspecified site; M06.9 Rheumatoid arthritis, unspecified; E66.01 Morbid (severe) obesity due to excess calories; D50.9 Iron deficiency anemia, unspecified; E78.5 Hyperlipidemia, unspecified; Z99.81 Dependence on supplemental oxygen; Z88.5 Allergy status to narcotic agent; I25.2 Old myocardial infarction; Z88.8 Allergy status to other drugs, medicaments and biological substances; Z79.4 Long term (current) use of insulin; Z79.899 Other long term (current) drug therapy; Z79.52 Long term (current) use of systemic steroids; J30.9 Allergic rhinitis, unspecified; E78.00 Pure hypercholesterolemia, unspecified; K59.09 Other constipation; K57.90 Diverticulosis of intestine, part unspecified, without perforation or abscess without bleeding; K21.9 Gastro-esophageal reflux disease without esophagitis; R32 Unspecified urinary incontinence; Z90.49 Acquired absence of other specified parts of digestive tract; Z98.49 Cataract extraction status, unspecified eye
CPT/HCPCS: 36415; 51702; 73630; 80053; 82962; 83735; 83880; 84484; 85025; 93005 ×2; 96365; 96375; 99285; J1940; J3490; U0002; 71045; 71045-26; 80048; 81001; 82272; 83036; 84100; 84439; 84443; 86140; 87070; 87077; 87186; 93010; 97162-GP; 97530-GP; A9270-GY; J1815-GY; J2543; J7050; J7512

== ENCOUNTER 2020-10-31 10:09 | Inpatient (IN) | payer MEDICARE, BC ==
[2020-10-31] MEDS ORDERED: Sodium Chloride 0.9% 10 ML Syringe FLUSH PRN (10:27)
[2020-10-31] MEDS ORDERED: cefTRIAXone 2 GM in Sodium Chloride 0.9% 100 ML IV ONE ×2 (10:27→10:34)
--- NOTE | 2020-10-31 10:48 | EDM.PDOC ---
ED HPI GENERAL MEDICAL PROBLEM - General Chief Complaint: General Stated Complaint: [facility] Time Seen by Provider: 10/31/20 10:15 Source of Information: Reports: Patient, Family (Daughter) History Limitations: Reports: No Limitations - History of Present Illness INITIAL COMMENTS - FREE TEXT/NARRATIVE: The patient presents with fever, chills, hypoglycemia and nausea. She has a diabetic foot ulcer. There was a scab initially but a couple days ago the scab fell off and not there is an ulcer on the middle portion of her planter foot. There is slight drainage. She also has another area of edema to the left foot. Dr Pemberton the fur clipper in [place] is aware and he did call in an antibiotic to start taking today. Last night she developed the fever and chills. She also had low blood sugars that she felt but did not take. She has nausea but no vomiting. She has no cough but she is short of breath. She is oxygen dependent and needs bipap with sleeping at night and even with naps. She has no chest pain. She has no abdominal pain. She has no dysuria. She was in the hospital for A-fib over Thanksgiving and recently for CHF exacerbation. She lives with her daughter and she has home health. Onset: Gradual Duration: Day(s): Location: Reports: Lower Extremity, Right (foot) Quality: Reports: Ache Severity: Mild Improves with: Reports: None Worsens with: Reports: None Associated Symptoms: Reports: Fever/Chills, Nausea/Vomiting, Shortness of Breath. Denies: Chest Pain, Cough, Headaches - Related Data Allergies Allergy/AdvReac Type Severity Reaction Status Date / Time atorvastatin Allergy Cannot Verified 10/31/20 10:23 Remember fentanyl Allergy Respiratory Verified 10/31/20 10:23 Depression hydrocodone Allergy Respiratory Verified 10/31/20 10:23 Distress oxycodone [Oxycodone] Allergy Respiratory Verified 10/31/20 10:23 Distress tramadol Allergy Respiratory Verified 10/31/20 10:23 Distress Home Meds: Home Meds Magnesium 250 mg PO DAILY 05/07/14 [History] Furosemide [Lasix] 40 mg PO BID 03/08/16 [History] Dextrose [Glucose] 4 gm PO DAILY PRN 04/21/17 [History] Fish Oil/Bethesda-3 Fatty Acids [Fish Oil 1,000 MG] 1 cap PO DAILY 04/21/17 [History] Insulin Aspart [Novolog Flexpen] 1 unit SQ TID 04/21/17 [History] Lisinopril 20 mg PO DAILY 04/21/17 [History] Multivit,Calc,Mins/Iron/Folic [Thera-M] 1 each PO DAILY 04/21/17 [History] Ezetimibe [Zetia] 10 mg PO DAILY 05/09/18 [History] Omeprazole Magnesium [Prilosec Otc] 20 mg PO DAILY 05/09/18 [History] Pravastatin [Pravachol] 40 mg PO DAILY 05/09/18 [History] Ubidecarenone [Coq-10] 1 tab PO DAILY 05/09/18 [History] Leflunomide [Arava] 20 mg PO DAILY 05/30/19 [History] Metoprolol Tartrate [Lopressor] 50 mg PO BID 05/30/19 [History] Triamcinolone Acetonide [Triamcinolone Acetonide 0.1% Crm] 1 dose TOP BID PRN 05/30/19 [History] Hydroxychloroquine [Plaquenil] 200 mg PO DAILY 09/02/20 [History] Apixaban [Eliquis] 5 mg PO BID #60 tablet 09/04/20 [Rx] Acetaminophen [Tylenol] 325 mg PO Q6H PRN 10/16/20 [History] Ferrous Gluconate [Fergon] 1 tab PO DAILY 10/16/20 [History] LORazepam [Ativan] 0.5 mg PO QID PRN 10/16/20 [History] predniSONE [Prednisone] 1 mg PO DAILY 10/16/20 [History] Diltiazem [Dilacor XR] 240 mg PO DAILY #30 cap.er 10/21/20 [Rx] Insulin Glargine,Hum.Rec.Anlog [Basaglar Kwikpen U-100] 20 units SUBCUT BID #0 10/21/20 [Rx] Saccharomyces Boulardii [Florastor] 250 mg PO BID #9 cap 10/21/20 [Rx] Past Medical History HEENT History: Reports: Allergic Rhinitis, Cataract, Impaired Vision Cardiovascular History: Reports: Afib, Arrhythmia, Heart Failure, Heart Murmur, High Cholesterol, Hypertension, Pulmonary Hypertension, PVD Other Cardiovascular History: aortic stenosis, CHF, cor pulmonae, aortic stenosis Respiratory History: Reports: Pneumonia, Recurrent, Sleep Apnea Other Respiratory History: pulmonary HTN, respiratory failure, hypoxemia, chronic o2 use at 2L per nasal canula during day, 6 L at night Gastrointestinal History: Reports: Chronic Constipation, Diverticulosis, Gastritis, GERD, Hemorrhoids, PUD Other Gastrointestinal History: Stomach ulcer, transaminitis, hemorrhagic gastritis, blocked bile duct Genitourinary History: Reports: Acute Renal Failure, Urinary Incontinence Other Genitourinary History: acute renal failure 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: Musculoskeletal History: Reports: RA, Other (See Below) Other Musculoskeletal History: knee pain Neurological History: Reports: None Psychiatric History: Reports: Anxiety, Depression Endocrine/Metabolic History: Reports: Diabetes, Type II, Obesity/BMI 30+ Hematologic History: Reports: Anemia Other Hematologic History: takes iron Immunologic History: Reports: None Oncologic (Cancer) History: Reports: None Dermatologic History: Reports: Cellulitis Other Dermatologic History: diabetic ulceration to left great toe - Infectious Disease History Infectious Disease History: Reports: Chicken Pox, Measles, Mumps, Rubella - Past Surgical History HEENT Surgical History: Reports: Cataract Surgery GI Surgical History: Reports: Appendectomy, Cholecystectomy, Colonoscopy, EGD, ERCP Female Surgical History: Reports: Breast Biopsy Musculoskeletal Surgical History: Reports: Amputation, Carpal Tunnel, Knee Replacement Other Musculoskeletal Surgeries/Procedures:: Bilateral TKR, left great toe and 3rd toe amputation Oncologic Surgical History: Reports: Biopsy of Breast Social & Family History - Family History Family Medical History: No Pertinent Family History - Tobacco Use Tobacco Use Status *Q: Never Tobacco User Second Hand Smoke Exposure: Yes - Caffeine Use Caffeine Use: Reports: Coffee, Tea Caffeine Use Comment: 2 cups in the morning, and 1 cup in the afternoon - Recreational Drug Use Recreational Drug Use: No - Living Situation & Occupation Living situation: Reports: , with Family (Daughter) Occupation: Retired ED ROS GENERAL - Review of Systems Review Of Systems: See Below Constitutional: Reports: Fever, Chills, Malaise, Weakness, Fatigue HEENT: Reports: No Symptoms Respiratory: Reports: Shortness of Breath. Denies: Cough Cardiovascular: Reports: No Symptoms Endocrine: Reports: No Symptoms GI/Abdominal: Reports: Nausea. Denies: Abdominal Pain, Vomiting : Reports: No Symptoms Musculoskeletal: Reports: Other (right foot sore) ED EXAM, GENERAL - Physical Exam Exam: See Below Exam Limited By: No Limitations General Appearance: Alert, No Apparent Distress Ears: Normal External Exam Nose: Normal Inspection Head: Atraumatic, Normocephalic Neck: Normal Inspection Respiratory/Chest: No Respiratory Distress, Decreased Breath Sounds Cardiovascular: Regular Rate, Rhythm, No Edema, No Murmur GI/Abdominal: Soft, Non-Tender, No Organomegaly, No Mass Back Exam: Normal Inspection Extremities: Other (2cm diameter ulcer to the middle of the plantar region of her right foot.) Course - Vital Signs Last Recorded V/S: Last Vital Signs Temp 99.2 F 10/31/20 10:18 Pulse 97 10/31/20 10:18 Resp 19 10/31/20 10:18 BP 125/65 10/31/20 10:18 Pulse Ox 100 10/31/20 10:18 - Orders/Labs/Meds Orders: Active Orders 24 hr Category Date Time Status Patient Status [ADT] Routine ADT 10/31/20 12:52 Ordered Chest 1V Frontal [CR] Stat Exams 10/31/20 10:27 Taken CULTURE ANAEROBIC + SMEAR [RM] Stat Lab 10/31/20 10:26 Received CULTURE BLOOD [BC] Stat Lab 10/31/20 11:10 Received CULTURE BLOOD [BC] Stat Lab 10/31/20 11:22 Received Sodium Chloride 0.9% [Saline Flush] Med 10/31/20 10:27 Active 10 ml FLUSH ASDIRECTED PRN Blood Culture x2 Reflex Set [OM.PC] Stat Oth 10/31/20 10:27 Ordered Saline Lock Insert [OM.PC] Stat Oth 10/31/20 10:27 Ordered Medication Orders Sodium Chloride (Saline Flush) 10 ml FLUSH ASDIRECTED PRN PRN Reason: Keep Vein Open Last Admin: 10/31/20 11:42 Dose: 10 ml Documented by: MELANIA Labs: Laboratory Tests 10/31/20 10/31/20 10/31/20 Range/Units 10:43 11:10 11:10 WBC 13.03 H (3.98-10.04) K/mm3 RBC 3.40 L (3.98-5.22) M/mm3 Hgb 9.8 L (11.2-15.7) gm/dl Hct 32.1 L (34.1-44.9) % MCV 94.4 (79.4-94.8) fl MCH 28.8 (25.6-32.2) pg MCHC 30.5 L (32.2-35.5) g/dl RDW Std Deviation 50.3 H (36.4-46.3) fL Plt Count 180 L (182-369) K/mm3 MPV 11.1 (9.4-12.3) fl Neutrophils % (Manual) 87 H (40-60) % Band Neutrophils % 0 (0-10) % Lymphocytes % (Manual) 8 L (20-40) % Atypical Lymphs % 0 % Monocytes % (Manual) 4 (2-10) % Eosinophils % (Manual) 1 (0.7-5.8) % Basophils % (Manual) 0 L (0.1-1.2) Platelet Estimate Adequate RBC Morph Comment Normal PT 12.6 H (9.7-12.0) SECONDS INR 1.18 Sodium (136-145) mEq/L Potassium (3.5-5.1) mEq/L Chloride (98-107) mEq/L Carbon Dioxide (21-32) mEq/L Anion Gap (5-15) BUN (7-18) mg/dL Creatinine (0.55-1.02) mg/dL Est Cr Clr Drug Dosing mL/min Estimated GFR (MDRD) (>60) mL/min BUN/Creatinine Ratio (14-18) Glucose (83-115) mg/dL POC Glucose (83-110) mg/dL Lactic Acid (0.4-2.0) mmol/L Calcium (8.5-10.1) mg/dL Total Bilirubin (0.2-1.0) mg/dL AST (15-37) U/L ALT (14-59) U/L Alkaline Phosphatase (46-116) U/L C-Reactive Protein (<1.0) mg/dL Total Protein (6.4-8.2) g/dl Albumin (3.4-5.0) g/dl Globulin gm/dL Albumin/Globulin Ratio (1-2) Urine Color (Yellow) Urine Appearance (Clear) Urine pH (5.0-8.0) Ur Specific [place] (1.005-1.030) Urine Protein (Negative) Urine Glucose (UA) (Negative) Urine Ketones (Negative) Urine Occult Blood (Negative) Urine Nitrite (Negative) Urine Bilirubin (Negative) Urine Urobilinogen (0.2-1.0) Ur Leukocyte Esterase (Negative) U Hyaline Cast (Auto) (0-5) /lpf Urine RBC (0-5) /hpf Urine WBC (0-5) /hpf Ur Epithelial Cells (0-5) /hpf Amorphous Sediment (NOT SEEN) /hpf Urine Bacteria (FEW) /hpf Urine Mucus (FEW) /hpf SARS-CoV-2 RNA (GWENDOLYN) Negative (NEGATIVE) 10/31/20 10/31/20 10/31/20 Range/Units 11:10 11:10 11:35 WBC (3.98-10.04) K/mm3 RBC (3.98-5.22) M/mm3 Hgb (11.2-15.7) gm/dl Hct (34.1-44.9) % MCV (79.4-94.8) fl MCH (25.6-32.2) pg MCHC (32.2-35.5) g/dl RDW Std Deviation (36.4-46.3) fL Plt Count (182-369) K/mm3 MPV (9.4-12.3) fl Neutrophils % (Manual) (40-60) % Band Neutrophils % (0-10) % Lymphocytes % (Manual) (20-40) % Atypical Lymphs % % Monocytes % (Manual) (2-10) % Eosinophils % (Manual) (0.7-5.8) % Basophils % (Manual) (0.1-1.2) Platelet Estimate RBC Morph Comment PT (9.7-12.0) SECONDS INR Sodium 141 (136-145) mEq/L Potassium 4.2 (3.5-5.1) mEq/L Chloride 102 (98-107) mEq/L Carbon Dioxide 34 H (21-32) mEq/L Anion Gap 9.2 (5-15) BUN 42 H (7-18) mg/dL Creatinine 1.5 H (0.55-1.02) mg/dL Est Cr Clr Drug Dosing 21.84 mL/min Estimated GFR (MDRD) 33 (>60) mL/min BUN/Creatinine Ratio 28.0 H (14-18) Glucose 261 H (83-115) mg/dL POC Glucose (83-110) mg/dL Lactic Acid 1.1 (0.4-2.0) mmol/L Calcium 9.1 (8.5-10.1) mg/dL Total Bilirubin 0.6 (0.2-1.0) mg/dL AST 13 L (15-37) U/L ALT 22 (14-59) U/L Alkaline Phosphatase 95 (46-116) U/L C-Reactive Protein 6.5 H* (<1.0) mg/dL Total Protein 6.7 (6.4-8.2) g/dl Albumin 2.6 L (3.4-5.0) g/dl Globulin 4.1 gm/dL Albumin/Globulin Ratio 0.6 L (1-2) Urine Color Yellow (Yellow) Urine Appearance Clear (Clear) Urine pH 5.0 (5.0-8.0) Ur Specific [place] 1.020 (1.005-1.030) Urine Protein 2+ H (Negative) Urine Glucose (UA) Negative (Negative) Urine Ketones Negative (Negative) Urine Occult Blood Negative (Negative) Urine Nitrite Negative (Negative) Urine Bilirubin Negative (Negative) Urine Urobilinogen 0.2 (0.2-1.0) Ur Leukocyte Esterase Negative (Negative) U Hyaline Cast (Auto) 5-10 H (0-5) /lpf Urine RBC 0-5 (0-5) /hpf Urine WBC 0-5 (0-5) /hpf Ur Epithelial Cells 0-5 (0-5) /hpf Amorphous Sediment Moderate H (NOT SEEN) /hpf Urine Bacteria Few (FEW) /hpf Urine Mucus Few (FEW) /hpf SARS-CoV-2 RNA (GWENDOLYN) (NEGATIVE) 10/31/20 Range/Units 12:28 WBC (3.98-10.04) K/mm3 RBC (3.98-5.22) M/mm3 Hgb (11.2-15.7) gm/dl Hct (34.1-44.9) % MCV (79.4-94.8) fl MCH (25.6-32.2) pg MCHC (32.2-35.5) g/dl RDW Std Deviation (36.4-46.3) fL Plt Count (182-369) K/mm3 MPV (9.4-12.3) fl Neutrophils % (Manual) (40-60) % Band Neutrophils % (0-10) % Lymphocytes % (Manual) (20-40) % Atypical Lymphs % % Monocytes % (Manual) (2-10) % Eosinophils % (Manual) (0.7-5.8) % Basophils % (Manual) (0.1-1.2) Platelet Estimate RBC Morph Comment PT (9.7-12.0) SECONDS INR Sodium (136-145) mEq/L Potassium (3.5-5.1) mEq/L Chloride (98-107) mEq/L Carbon Dioxide (21-32) mEq/L Anion Gap (5-15) BUN (7-18) mg/dL Creatinine (0.55-1.02) mg/dL Est Cr Clr Drug Dosing mL/min Estimated GFR (MDRD) (>60) mL/min BUN/Creatinine Ratio (14-18) Glucose (83-115) mg/dL POC Glucose 258 H (83-110) mg/dL Lactic Acid (0.4-2.0) mmol/L Calcium (8.5-10.1) mg/dL Total Bilirubin (0.2-1.0) mg/dL AST (15-37) U/L ALT (14-59) U/L Alkaline Phosphatase (46-116) U/L C-Reactive Protein (<1.0) mg/dL Total Protein (6.4-8.2) g/dl Albumin (3.4-5.0) g/dl Globulin gm/dL Albumin/Globulin Ratio (1-2) Urine Color (Yellow) Urine Appearance (Clear) Urine pH (5.0-8.0) Ur Specific [place] (1.005-1.030) Urine Protein (Negative) Urine Glucose (UA) (Negative) Urine Ketones (Negative) Urine Occult Blood (Negative) Urine Nitrite (Negative) Urine Bilirubin (Negative) Urine Urobilinogen (0.2-1.0) Ur Leukocyte Esterase (Negative) U Hyaline Cast (Auto) (0-5) /lpf Urine RBC (0-5) /hpf Urine WBC (0-5) /hpf Ur Epithelial Cells (0-5) /hpf Amorphous Sediment (NOT SEEN) /hpf Urine Bacteria (FEW) /hpf Urine Mucus (FEW) /hpf SARS-CoV-2 RNA (GWENDOLYN) (NEGATIVE) Meds: Medications Generic Name Dose Route Start Last Admin Trade Name Freq PRN Reason Stop Dose Admin Sodium Chloride 10 ml 10/31/20 10:27 10/31/20 11:42 Saline Flush FLUSH 10 ml ASDIRECTED PRN Administration Keep Vein Open Discontinued Medications Generic Name Dose Route Start Last Admin Trade Name Freq PRN Reason Stop Dose Admin Ceftriaxone Sodium 2 gm/ 100 mls @ 200 mls/hr 10/31/20 10:27 10/31/20 10:41 Sodium Chloride IV 10/31/20 10:56 Not Given STAT ONE Ceftriaxone Sodium 2 gm/ 100 mls @ 200 mls/hr 10/31/20 10:34 10/31/20 11:42 Sodium Chloride IV 10/31/20 11:03 200 mls/hr ONETIME ONE Administration - Re-Assessments/Exams Free Text/Narrative Re-Assessment/Exam: 10/31/20 10:56 I ordered an IV saline lock, oxygen, blood cultures, wound culture, lactic acid, labs and rocephin 2 grams IV. 10/31/20 12:54 Her CXR shows nothing acute. Her WBC was elevated at 13.03. Her Hgb was low at 9.8. Her creatinine was a little elevated at 1.5. Her glucose was elevated at 261. Her lactic acid is normal at 1.1. Her CRP is elevated at 6.5. Her UA shows no UTI. Her COVID 19 is negative. She has a diabetic foot ulcer. I feel she needs to be admitted. I called Dr Santo and he agreed to the admission. Departure - Departure Time of Disposition: 13:00 Disposition: Admitted As Inpatient 67 Condition: Fair Clinical Impression: Diabetic foot ulcer Qualifiers: Diabetic foot ulcer location: midfoot Diabetes mellitus type: type 2 Laterality: right Non-pressure ulcer stage: unspecified non-pressure ulcer stage Qualified Code(s): E11.621 - Type 2 diabetes mellitus with foot ulcer; L97.419 - Non-pressure chronic ulcer of right heel and midfoot with unspecified severity Anemia Qualifiers: Anemia type: due to chronic kidney disease Chronic kidney disease stage: stage 3 (moderate) Chronic kidney disease stage 3 subtype: stage 3b (GFR 30-44) Qualified Code(s): N18.32 - Chronic kidney disease, stage 3b; D63.1 - Anemia in chronic kidney disease - Discharge Information Referrals: Abraham Ramirez MD [Primary Care Provider] - Forms: ED Department Discharge Sepsis Event Note (ED) - Evaluation Sepsis Screening Result: Possible Sepsis Risk - Focused Exam Vital Signs: Vital Signs Temp Pulse Resp BP Pulse Ox 10/31/20 10:18 99.2 F 97 19 125/65 100 - My Orders Last 24 Hours: My Active Orders 10/31/20 10:26 CULTURE ANAEROBIC + SMEAR [RM] Stat 10/31/20 10:27 Chest 1V Frontal [CR] Stat Sodium Chloride 0.9% [Saline Flush] 10 ml FLUSH ASDIRECTED PRN Blood Culture x2 Reflex Set [OM.PC] Stat Saline Lock Insert [OM.PC] Stat 10/31/20 11:10 CULTURE BLOOD [BC] Stat 10/31/20 11:22 CULTURE BLOOD [BC] Stat 10/31/20 12:52 Patient Status [ADT] Routine - Assessment/Plan Last 24 Hours: My Active Orders 10/31/20 10:26 CULTURE ANAEROBIC + SMEAR [RM] Stat 10/31/20 10:27 Chest 1V Frontal [CR] Stat Sodium Chloride 0.9% [Saline Flush] 10 ml FLUSH ASDIRECTED PRN Blood Culture x2 Reflex Set [OM.PC] Stat Saline Lock Insert [OM.PC] Stat 10/31/20 11:10 CULTURE BLOOD [BC] Stat 10/31/20 11:22 CULTURE BLOOD [BC] Stat 10/31/20 12:52 Patient Status [ADT] Routine
--- NOTE | 2020-10-31 14:09 | PCM.HP.2 ---
H&P History of Present Illness - General Date of Service: 10/31/20 Admit Problem/Dx: Admission Diagnosis/Problem Admission Diagnosis/Problem Diabetic foot ulcer - History of Present Illness Initial Comments - Free Text/Narative: 80-year-old female with multiple medical problems including atrial fibrillation, heart failure, MN/NSTEMI, pulmonary hypertension, peripheral vascular disease, aortic stenosis, cor pulmonale, LEILANI, rheumatoid arthritis, insulin-dependent diabetes who was discharged on 10/21/2020 from this hospital after a CHF exacerbation and diabetic foot ulcer presents back to the emergency department. Patient was discharged on Augmentin and doing well until Monday, October 26, 2020. Patient states that overnight her foot became red, sore, and swollen. Patient has very little feeling in her feet from peripheral neuropathy. She states that she had fever, chills, nausea, and hypoglycemia. The eschar on the palm of her foot fell off and the ulcer has worsened. She is followed by Dr. Pemberton in podiatry. She is on 2 L of oxygen via nasal cannula at rest and she has 6 L bled into her BiPAP at night. During hospitalization 2 weeks ago she was on Zosyn. Patient was given 2 g Rocephin in the emergency department. Blood cultures were drawn previous. White count was 13.03, hemoglobin 9.8, platelet count of 180, INR 1.18, lactic acid 1.1, GFR 33, CRP 6.5. Chest x-ray showed nothing acute. Patient was transferred to the floor for IV antibiotics and possible consult of Dr. Pemberton on Monday. - Related Data Allergies/Adverse Reactions: Allergies Allergy/AdvReac Type Severity Reaction Status Date / Time atorvastatin Allergy Cannot Verified 10/31/20 14:14 Remember fentanyl Allergy Respiratory Verified 10/31/20 14:14 Depression hydrocodone Allergy Respiratory Verified 10/31/20 14:14 Distress oxycodone [Oxycodone] Allergy Respiratory Verified 10/31/20 14:14 Distress tramadol Allergy Respiratory Verified 10/31/20 14:14 Distress Home Medications: Home Meds Magnesium 250 mg PO DAILY 05/07/14 [History] Furosemide [Lasix] 40 mg PO BID 03/08/16 [History] Dextrose [Glucose] 4 gm PO DAILY PRN 04/21/17 [History] Fish Oil/[place]-3 Fatty Acids [Fish Oil 1,000 MG] 1 cap PO DAILY 04/21/17 [History] Insulin Aspart [Novolog Flexpen] 1 unit SQ TID 04/21/17 [History] Lisinopril 20 mg PO DAILY 04/21/17 [History] Multivit,Calc,Mins/Iron/Folic [Thera-M] 1 each PO DAILY 04/21/17 [History] Ezetimibe [Zetia] 10 mg PO DAILY 05/09/18 [History] Omeprazole Magnesium [Prilosec Otc] 20 mg PO DAILY 05/09/18 [History] Pravastatin [Pravachol] 40 mg PO DAILY 05/09/18 [History] Ubidecarenone [Coq-10] 1 tab PO DAILY 05/09/18 [History] Leflunomide [Arava] 20 mg PO BEDTIME 05/30/19 [History] Metoprolol Tartrate [Lopressor] 50 mg PO BID 05/30/19 [History] Triamcinolone Acetonide [Triamcinolone Acetonide 0.1% Crm] 1 dose TOP BID PRN 05/30/19 [History] Hydroxychloroquine [Plaquenil] 200 mg PO DAILY 09/02/20 [History] Apixaban [Eliquis] 5 mg PO BID #60 tablet 09/04/20 [Rx] Acetaminophen [Tylenol] 325 mg PO Q6H PRN 10/16/20 [History] Ferrous Gluconate [Fergon] 2 tab PO DAILY 10/16/20 [History] LORazepam [Ativan] 0.5 mg PO QID PRN 10/16/20 [History] predniSONE [Prednisone] 5 mg PO DAILY 10/16/20 [History] Diltiazem [Dilacor XR] 240 mg PO DAILY #30 cap.er 10/21/20 [Rx] Insulin Glargine,Hum.Rec.Anlog [Basaglar Kwikpen U-100] 20 units SUBCUT BID #0 10/21/20 [Rx] Saccharomyces Boulardii [Florastor] 250 mg PO BID #9 cap 10/21/20 [Rx] Past Medical History HEENT History: Reports: Allergic Rhinitis, Cataract, Impaired Vision Cardiovascular History: Reports: Afib, Arrhythmia, Heart Failure, Heart Murmur, High Cholesterol, Hypertension, Pulmonary Hypertension, PVD Other Cardiovascular History: aortic stenosis, CHF, cor pulmonae, aortic stenosis Respiratory History: Reports: Pneumonia, Recurrent, Sleep Apnea Other Respiratory History: pulmonary HTN, respiratory failure, hypoxemia, chronic o2 use at 2L per nasal canula during day, 6 L at night Gastrointestinal History: Reports: Chronic Constipation, Diverticulosis, Gastritis, GERD, Hemorrhoids, PUD Other Gastrointestinal History: Stomach ulcer, transaminitis, hemorrhagic gastritis, blocked bile duct Genitourinary History: Reports: Acute Renal Failure, Urinary Incontinence Other Genitourinary History: acute renal failure 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 INSPECTOR History: Reports: Musculoskeletal History: Reports: RA, Other (See Below) Other Musculoskeletal History: knee pain Neurological History: Reports: None Psychiatric History: Reports: Anxiety, Depression Endocrine/Metabolic History: Reports: Diabetes, Type II, Obesity/BMI 30+ Hematologic History: Reports: Anemia Other Hematologic History: takes iron Immunologic History: Reports: None Oncologic (Cancer) History: Reports: None Dermatologic History: Reports: Cellulitis Other Dermatologic History: diabetic ulceration to left great toe - Infectious Disease History Infectious Disease History: Reports: Chicken Pox, Measles, Mumps, Rubella - Past Surgical History HEENT Surgical History: Reports: Cataract Surgery GI Surgical History: Reports: Appendectomy, Cholecystectomy, Colonoscopy, EGD, ERCP Female Surgical History: Reports: Breast Biopsy Musculoskeletal Surgical History: Reports: Amputation, Carpal Tunnel, Knee Replacement Other Musculoskeletal Surgeries/Procedures:: Bilateral TKR, left great toe and 3rd toe amputation Oncologic Surgical History: Reports: Biopsy of Breast Social & Family History - Family History Family Medical History: No Pertinent Family History - Tobacco Use Tobacco Use Status *Q: Never Tobacco User Second Hand Smoke Exposure: Yes - Caffeine Use Caffeine Use: Reports: Tea Caffeine Use Comment: 2 cups in the morning, and 1 cup in the afternoon - Recreational Drug Use Recreational Drug Use: No - Living Situation & Occupation Living situation: Reports: , with Family (Daughter) Occupation: Retired H&P Review of Systems - Review of Systems: Review Of Systems: Comprehensive ROS is negative, except as noted in HPI. Exam - Exam Exam: See Below - Vital Signs Vital Signs: Last Vital Signs Temp 97.9 F 10/31/20 13:31 Pulse 89 10/31/20 13:30 Resp 24 H 10/31/20 13:30 BP 112/79 10/31/20 13:30 Pulse Ox 94 L 10/31/20 13:30 Weight: 269 lb 11.2 oz - Exam Quality Assessment: Supplemental Oxygen General: Alert, Oriented, 4 HEENT: Conjunctiva Clear, Hearing Intact, Mucosa Moist & [place], Normal Nasal Septum Neck: Supple, Trachea Midline, 2 Lungs: Normal Respiratory Effort, Crackles (Bibasilar), Rales Cardiovascular: Regular Rate, Irregular Rhythm, Systolic Murmur GI/Abdominal Exam: Normal Bowel Sounds, Soft, Non-Tender, No Organomegaly, No Distention (Morbid obesity), No Abnormal Bruit, No Mass Extremities: Normal Inspection, Normal Range of Motion, Non-Tender, Normal Capillary Refill, Pedal Edema (2+) Peripheral Pulses: 1+: Posterior Tibial (L), Posterior Tibial (R), Dorsalis Pedis (L), Dorsalis Pedis (R) Skin: Other (Necrotic ulcer measuring approximately one quarter in size and distending subcutaneously approximately 1 cm towards the heel. Purulent material is expressed. Left foot shows an intact unroofed ulcer.) Neuro Extensive - Mental Status: Alert, Oriented x3, Normal Mood/Affect, Normal Cognition Psychiatric: Alert, Normal Affect, Normal Mood - Patient Data Lab Results Last 24 hrs: Laboratory Results - last 24 hr 10/31/20 10/31/20 10/31/20 Range/Units 10:43 11:10 11:10 WBC 13.03 H (3.98-10.04) K/mm3 RBC 3.40 L (3.98-5.22) M/mm3 Hgb 9.8 L (11.2-15.7) gm/dl Hct 32.1 L (34.1-44.9) % MCV 94.4 (79.4-94.8) fl MCH 28.8 (25.6-32.2) pg MCHC 30.5 L (32.2-35.5) g/dl RDW Std Deviation 50.3 H (36.4-46.3) fL Plt Count 180 L (182-369) K/mm3 MPV 11.1 (9.4-12.3) fl Neutrophils % (Manual) 87 H (40-60) % Band Neutrophils % 0 (0-10) % Lymphocytes % (Manual) 8 L (20-40) % Atypical Lymphs % 0 % Monocytes % (Manual) 4 (2-10) % Eosinophils % (Manual) 1 (0.7-5.8) % Basophils % (Manual) 0 L (0.1-1.2) Platelet Estimate Adequate RBC Morph Comment Normal PT 12.6 H (9.7-12.0) SECONDS INR 1.18 Sodium (136-145) mEq/L Potassium (3.5-5.1) mEq/L Chloride (98-107) mEq/L Carbon Dioxide (21-32) mEq/L Anion Gap (5-15) BUN (7-18) mg/dL Creatinine (0.55-1.02) mg/dL Est Cr Clr Drug Dosing mL/min Estimated GFR (MDRD) (>60) mL/min BUN/Creatinine Ratio (14-18) Glucose (83-115) mg/dL POC Glucose (83-110) mg/dL Lactic Acid (0.4-2.0) mmol/L Calcium (8.5-10.1) mg/dL Total Bilirubin (0.2-1.0) mg/dL AST (15-37) U/L ALT (14-59) U/L Alkaline Phosphatase (46-116) U/L C-Reactive Protein (<1.0) mg/dL Total Protein (6.4-8.2) g/dl Albumin (3.4-5.0) g/dl Globulin gm/dL Albumin/Globulin Ratio (1-2) Urine Color (Yellow) Urine Appearance (Clear) Urine pH (5.0-8.0) Ur Specific [place] (1.005-1.030) Urine Protein (Negative) Urine Glucose (UA) (Negative) Urine Ketones (Negative) Urine Occult Blood (Negative) Urine Nitrite (Negative) Urine Bilirubin (Negative) Urine Urobilinogen (0.2-1.0) Ur Leukocyte Esterase (Negative) U Hyaline Cast (Auto) (0-5) /lpf Urine RBC (0-5) /hpf Urine WBC (0-5) /hpf Ur Epithelial Cells (0-5) /hpf Amorphous Sediment (NOT SEEN) /hpf Urine Bacteria (FEW) /hpf Urine Mucus (FEW) /hpf SARS-CoV-2 RNA (GWENDOLYN) Negative (NEGATIVE) 10/31/20 10/31/20 10/31/20 Range/Units 11:10 11:10 11:35 WBC (3.98-10.04) K/mm3 RBC (3.98-5.22) M/mm3 Hgb (11.2-15.7) gm/dl Hct (34.1-44.9) % MCV (79.4-94.8) fl MCH (25.6-32.2) pg MCHC (32.2-35.5) g/dl RDW Std Deviation (36.4-46.3) fL Plt Count (182-369) K/mm3 MPV (9.4-12.3) fl Neutrophils % (Manual) (40-60) % Band Neutrophils % (0-10) % Lymphocytes % (Manual) (20-40) % Atypical Lymphs % % Monocytes % (Manual) (2-10) % Eosinophils % (Manual) (0.7-5.8) % Basophils % (Manual) (0.1-1.2) Platelet Estimate RBC Morph Comment PT (9.7-12.0) SECONDS INR Sodium 141 (136-145) mEq/L Potassium 4.2 (3.5-5.1) mEq/L Chloride 102 (98-107) mEq/L Carbon Dioxide 34 H (21-32) mEq/L Anion Gap 9.2 (5-15) BUN 42 H (7-18) mg/dL Creatinine 1.5 H (0.55-1.02) mg/dL Est Cr Clr Drug Dosing 21.84 mL/min Estimated GFR (MDRD) 33 (>60) mL/min BUN/Creatinine Ratio 28.0 H (14-18) Glucose 261 H (83-115) mg/dL POC Glucose (83-110) mg/dL Lactic Acid 1.1 (0.4-2.0) mmol/L Calcium 9.1 (8.5-10.1) mg/dL Total Bilirubin 0.6 (0.2-1.0) mg/dL AST 13 L (15-37) U/L ALT 22 (14-59) U/L Alkaline Phosphatase 95 (46-116) U/L C-Reactive Protein 6.5 H* (<1.0) mg/dL Total Protein 6.7 (6.4-8.2) g/dl Albumin 2.6 L (3.4-5.0) g/dl Globulin 4.1 gm/dL Albumin/Globulin Ratio 0.6 L (1-2) Urine Color Yellow (Yellow) Urine Appearance Clear (Clear) Urine pH 5.0 (5.0-8.0) Ur Specific [place] 1.020 (1.005-1.030) Urine Protein 2+ H (Negative) Urine Glucose (UA) Negative (Negative) Urine Ketones Negative (Negative) Urine Occult Blood Negative (Negative) Urine Nitrite Negative (Negative) Urine Bilirubin Negative (Negative) Urine Urobilinogen 0.2 (0.2-1.0) Ur Leukocyte Esterase Negative (Negative) U Hyaline Cast (Auto) 5-10 H (0-5) /lpf Urine RBC 0-5 (0-5) /hpf Urine WBC 0-5 (0-5) /hpf Ur Epithelial Cells 0-5 (0-5) /hpf Amorphous Sediment Moderate H (NOT SEEN) /hpf Urine Bacteria Few (FEW) /hpf Urine Mucus Few (FEW) /hpf SARS-CoV-2 RNA (GWENDOLYN) (NEGATIVE) 10/31/20 Range/Units 12:28 WBC (3.98-10.04) K/mm3 RBC (3.98-5.22) M/mm3 Hgb (11.2-15.7) gm/dl Hct (34.1-44.9) % MCV (79.4-94.8) fl MCH (25.6-32.2) pg MCHC (32.2-35.5) g/dl RDW Std Deviation (36.4-46.3) fL Plt Count (182-369) K/mm3 MPV (9.4-12.3) fl Neutrophils % (Manual) (40-60) % Band Neutrophils % (0-10) % Lymphocytes % (Manual) (20-40) % Atypical Lymphs % % Monocytes % (Manual) (2-10) % Eosinophils % (Manual) (0.7-5.8) % Basophils % (Manual) (0.1-1.2) Platelet Estimate RBC Morph Comment PT (9.7-12.0) SECONDS INR Sodium (136-145) mEq/L Potassium (3.5-5.1) mEq/L Chloride (98-107) mEq/L Carbon Dioxide (21-32) mEq/L Anion Gap (5-15) BUN (7-18) mg/dL Creatinine (0.55-1.02) mg/dL Est Cr Clr Drug Dosing mL/min Estimated GFR (MDRD) (>60) mL/min BUN/Creatinine Ratio (14-18) Glucose (83-115) mg/dL POC Glucose 258 H (83-110) mg/dL Lactic Acid (0.4-2.0) mmol/L Calcium (8.5-10.1) mg/dL Total Bilirubin (0.2-1.0) mg/dL AST (15-37) U/L ALT (14-59) U/L Alkaline Phosphatase (46-116) U/L C-Reactive Protein (<1.0) mg/dL Total Protein (6.4-8.2) g/dl Albumin (3.4-5.0) g/dl Globulin gm/dL Albumin/Globulin Ratio (1-2) Urine Color (Yellow) Urine Appearance (Clear) Urine pH (5.0-8.0) Ur Specific [place] (1.005-1.030) Urine Protein (Negative) Urine Glucose (UA) (Negative) Urine Ketones (Negative) Urine Occult Blood (Negative) Urine Nitrite (Negative) Urine Bilirubin (Negative) Urine Urobilinogen (0.2-1.0) Ur Leukocyte Esterase (Negative) U Hyaline Cast (Auto) (0-5) /lpf Urine RBC (0-5) /hpf Urine WBC (0-5) /hpf Ur Epithelial Cells (0-5) /hpf Amorphous Sediment (NOT SEEN) /hpf Urine Bacteria (FEW) /hpf Urine Mucus (FEW) /hpf SARS-CoV-2 RNA (GWENDOLYN) (NEGATIVE) Result Diagrams: 11/01/20 06:30 11/01/20 06:30 Sepsis Event Note - Evaluation Sepsis Screening Result: Sepsis Risk - Focused Exam Vital Signs: Vital Signs Temp Temp Pulse Pulse Resp BP BP 10/31/20 13:31 97.9 F 10/31/20 13:30 89 24 H 112/79 10/31/20 10:18 99.2 F 97 19 125/65 Pulse Ox 10/31/20 13:31 10/31/20 13:30 94 L 10/31/20 10:18 100 - Problem List (1) Diabetic nephropathy Status: Acute Current Visit: Yes (2) Diabetic foot ulcer SNOMED Code(s): 513011601 ICD Code: E11.621 - TYPE 2 DIABETES MELLITUS WITH FOOT ULCER; L97.509 - NON- PRESSURE CHRONIC ULCER OTH PRT UNSP FOOT W UNSP SEVERITY Status: Acute Current Visit: Yes Qualifiers: Diabetic foot ulcer location: midfoot Diabetes mellitus type: type 2 Laterality: right Non-pressure ulcer stage: unspecified non-pressure ulcer stage Qualified Code(s): E11.621 - Type 2 diabetes mellitus with foot ulcer; L97.419 - Non-pressure chronic ulcer of right heel and midfoot with unspecified severity (3) Congestive heart failure SNOMED Code(s): 52734503 ICD Code: I50.9 - HEART FAILURE, UNSPECIFIED Status: Acute Priority: Medium Current Visit: No Qualifiers: Heart failure type: diastolic Heart failure chronicity: acute on chronic Qualified Code(s): I50.33 - Acute on chronic diastolic (congestive) heart failure (4) Chronic renal insufficiency, stage III (moderate) SNOMED Code(s): 547052334 ICD Code: N18.30 - CHRONIC KIDNEY DISEASE, STAGE 3 UNSPECIFIED Status: Chronic Priority: Medium Current Visit: No Onset Date: ~09/02/20 (5) LEILANI on CPAP SNOMED Code(s): 51463519 ICD Code: G47.33 - OBSTRUCTIVE SLEEP APNEA (ADULT) (PEDIATRIC); Z99.89 - DEPENDENCE ON OTHER ENABLING MACHINES AND DEVICES Status: Chronic Priority: Medium Current Visit: No Onset Date: ~09/02/20 Problem Details: compliant with cpap (6) Rheumatoid arthritis SNOMED Code(s): 68149771 ICD Code: M06.9 - RHEUMATOID ARTHRITIS, UNSPECIFIED Status: Chronic Priority: Medium Current Visit: No Onset Date: ~09/02/20 Problem Details: in chronic achey/pain state no changes in meds on chronic low dose steriods. Qualifiers: Rheumatoid arthritis location: multiple sites Problem List Initiated/Reviewed/Updated: Yes Orders Last 24hrs: Active Orders 24 hr Category Date Time Status Patient Status [ADT] Routine ADT 10/31/20 12:52 Active Chest 1V Frontal [CR] Stat Exams 10/31/20 10:27 Taken CULTURE ANAEROBIC + SMEAR [RM] Stat Lab 10/31/20 10:26 Received CULTURE BLOOD [BC] Stat Lab 10/31/20 11:10 Received CULTURE BLOOD [BC] Stat Lab 10/31/20 11:22 Received Sodium Chloride 0.9% [Saline Flush] Med 10/31/20 10:27 Active 10 ml FLUSH ASDIRECTED PRN Blood Culture x2 Reflex Set [OM.PC] Stat Ot 10/31/20 10:27 Ordered Saline Lock Insert [OM.PC] Stat Ot 10/31/20 10:27 Ordered Medication Orders Sodium Chloride (Saline Flush) 10 ml FLUSH ASDIRECTED PRN PRN Reason: Keep Vein Open Last Admin: 10/31/20 11:42 Dose: 10 ml Documented by: MELANIA Assessment/Plan Comment:: Assessment 80-year-old female with diabetic peripheral neuropathy presents to the emergency department with worsening of her chronic right plantar ulcer and development of possible left plantar ulcer. * Nonhealing diabetic foot ulcer * Patient discharged on October 21 on Augmentin. 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 Pemberton * Systemic symptoms including fever, chills, hypoglycemia and nausea. * White count 13,000, CRP 6.5, lactic acid 1.1 * High risk for antibiotic associated diarrhea Insulin-dependent diabetes * Discharged on Lantus 20 units twice daily and sliding scale insulin * Blood sugars have been labile secondary to infection Atrial fibrillation, CHF, aortic stenosis, cor pulmonale with oxygen dependent congestive heart failure * Atrial fibrillation with rate less than 100 * Anticoagulated on Eliquis * On baseline 2 L nasal cannula O2 at rest * On BiPAP 6 L O2 bled in at night Stage III diabetic nephropathy * Creatinine 1.5, estimated GFR 33 on admission - Essentially at baseline Multiple chronic medical problems as above. Plan * Admit to medical floor * Start vancomycin and cefepime * Cultures done in the emergency department of both wound and blood * Nursing for wound care * Contact Dr. Pemberton on Monday * Follow CBC, CMP, C-reactive protein * Decrease Lantus to 20 units twice daily and increase as necessary. * Humalog 5 units with each meal and add sliding scale * Switch Eliquis to Lovenox * CODE STATUS: DNR/DNI * VTE prophylaxis with Lovenox * Consider further imaging of foot. Only plain films have been performed so far. - Mortality Measure Prognosis:: Good
[2020-10-31] MEDS ORDERED: Cefepime 2 GM in Premix Bag 1 BAG IV ONE (16:17)
[2020-10-31] MEDS ORDERED: Acetaminophen 325 MG Tab PO PRN (16:48)
[2020-10-31] MEDS: Furosemide 20 MG Tab PO SCH (17:23)
[2020-10-31] MEDS: Saccharomyces Boulardii (Probiotic) 250 MG Cap PO SCH (20:18)
[2020-10-31] MEDS: Apixaban 2.5 MG Tab PO SCH (20:19)
[2020-10-31] MEDS: LORazepam 0.5 MG Tab PO PRN (20:19)
[2020-10-31] MEDS: Metoprolol Tartrate 25 MG Tab PO SCH (20:20)
[2020-10-31] MEDS: LEFLUNOMIDE 20 MG PO SCH (20:24)
[2020-10-31] MEDS: Insulin Glarg,Human.Rec.Analog 100 Unit/ML SUBCUT SCH (20:33)
[2020-10-31] MEDS ORDERED: Famotidine 20 MG Tab PO SCH (21:00)
[2020-11-01] MEDS: Furosemide 20 MG Tab PO SCH ×2 (07:39→14:21)
[2020-11-01] MEDS: Insulin Glarg,Human.Rec.Analog 100 Unit/ML SUBCUT SCH ×2 (08:56→21:18)
[2020-11-01] MEDS: Magnesium Oxide 400 MG Tab PO SCH (08:58)
[2020-11-01] MEDS: Hydroxychloroquine 200 MG Tab PO SCH (08:59)
[2020-11-01] MEDS: Famotidine 20 MG Tab PO SCH ×2 (09:00→21:20)
[2020-11-01] MEDS: Saccharomyces Boulardii (Probiotic) 250 MG Cap PO SCH ×2 (09:00→21:17)
[2020-11-01] MEDS ORDERED: Apixaban 5 MG Tab PO SCH (09:00)
[2020-11-01] MEDS: Simvastatin 20 MG Tab PO SCH (09:01)
[2020-11-01] MEDS: Diltiazem 240 MG Cap.ER PO SCH (09:02)
[2020-11-01] MEDS: Ezetimibe 10 MG Tab PO SCH (09:02)
[2020-11-01] MEDS: Lisinopril 20 MG Tab PO SCH (09:02)
[2020-11-01] MEDS: Apixaban 2.5 MG Tab PO SCH (09:04)
[2020-11-01] MEDS: Metoprolol Tartrate 25 MG Tab PO SCH (09:05)
[2020-11-01] MEDS: Metoprolol Tartrate 50 MG Tab PO SCH ×2 (09:06→21:20)
[2020-11-01] MEDS: predniSONE 1 MG Tab PO SCH (09:10)
--- NOTE | 2020-11-01 11:13 | CR ---
Chest: Portable view of the chest was obtained Comparison: Prior chest x-ray of 10/20/20 and 10/17/20. Hazy density is felt to be present within the left lower lung. This is most likely due to pneumonia. Lungs otherwise are clear. Heart is mildly enlarged. Upper mediastinum is normal. No acute parenchymal change is seen. Impression: 1. Findings suspicious for possible left lower lobe pneumonia. 2. Stable cardiomegaly. Diagnostic code #3
[2020-11-01] MEDS: Cefepime 2 GM in Premix Bag 1 BAG IV SCH (16:27)
--- NOTE | 2020-11-01 20:37 | PCM.PN ---
- General Info Date of Service: 11/01/20 Admission Dx/Problem (Free Text): Admission Diagnosis/Problem Admission Diagnosis/Problem Diabetic foot ulcer Subjective Update: Patient stated she is feeling better. She does not have any pain in her foot, but she does not have much sensation. Appetite is good and she is not nauseous. No fever. Functional Status: Reports: Pain Controlled - Review of Systems General: Reports: No Symptoms HEENT: Reports: No Symptoms Pulmonary: Reports: No Symptoms Cardiovascular: Reports: No Symptoms Gastrointestinal: Reports: No Symptoms Musculoskeletal: Reports: No Symptoms - Patient Data Vitals - Most Recent: Last Vital Signs Temp 98.1 F 11/01/20 15:26 Pulse 86 11/01/20 15:26 Resp 14 11/01/20 15:26 BP 132/86 11/01/20 15:26 Pulse Ox 96 11/01/20 15:26 Weight - Most Recent: 271 lb 6.4 oz I&O - Last 24 Hours: Intake & Output 11/01/20 11/01/20 11/01/20 06:59 14:59 22:59 Intake Total 897 234 7140 Output Total 450 800 Balance 200 320 220 Lab Results Last 24 Hours: Laboratory Results - last 24 hr 10/31/20 11/01/20 11/01/20 Range/Units 20:15 06:30 06:30 WBC 7.52 (3.98-10.04) K/mm3 RBC 3.13 L (3.98-5.22) M/mm3 Hgb 8.9 L (11.2-15.7) gm/dl Hct 29.8 L (34.1-44.9) % MCV 95.2 H (79.4-94.8) fl MCH 28.4 (25.6-32.2) pg MCHC 29.9 L (32.2-35.5) g/dl RDW Std Deviation 51.4 H (36.4-46.3) fL Plt Count 149 L (182-369) K/mm3 MPV 10.9 (9.4-12.3) fl Neut % (Auto) 70.6 (34.0-71.1) % Lymph % (Auto) 15.3 L (19.3-51.7) % Pickett % (Auto) 12.4 (4.7-12.5) % Eos % (Auto) 1.3 (0.7-5.8) Baso % (Auto) 0.3 (0.1-1.2) % Neut # (Auto) 5.31 (1.56-6.13) K/mm3 Lymph # (Auto) 1.15 L (1.18-3.74) K/mm3 Pickett # (Auto) 0.93 H (0.24-0.36) K/mm3 Eos # (Auto) 0.10 (0.04-0.36) K/mm3 Baso # (Auto) 0.02 (0.01-0.08) K/mm3 Manual Slide Review Abnormal smear Sodium 142 (136-145) mEq/L Potassium 3.9 (3.5-5.1) mEq/L Chloride 103 (98-107) mEq/L Carbon Dioxide 33 H (21-32) mEq/L Anion Gap 9.9 (5-15) BUN 46 H (7-18) mg/dL Creatinine 1.4 H (0.55-1.02) mg/dL Est Cr Clr Drug Dosing 23.40 mL/min Estimated GFR (MDRD) 36 (>60) mL/min BUN/Creatinine Ratio 32.9 H (14-18) Glucose 121 H (83-115) mg/dL POC Glucose 220 H (83-110) mg/dL Calcium 8.7 (8.5-10.1) mg/dL Magnesium 1.9 (1.8-2.4) mg/dl Total Bilirubin 0.4 (0.2-1.0) mg/dL AST 13 L (15-37) U/L ALT 16 (14-59) U/L Alkaline Phosphatase 75 (46-116) U/L C-Reactive Protein 14.4 H* (<1.0) mg/dL Total Protein 6.0 L (6.4-8.2) g/dl Albumin 2.2 L (3.4-5.0) g/dl Globulin 3.8 gm/dL Albumin/Globulin Ratio 0.6 L (1-2) 11/01/20 11/01/20 11/01/20 Range/Units 06:30 11:15 17:18 WBC (3.98-10.04) K/mm3 RBC (3.98-5.22) M/mm3 Hgb (11.2-15.7) gm/dl Hct (34.1-44.9) % MCV (79.4-94.8) fl MCH (25.6-32.2) pg MCHC (32.2-35.5) g/dl RDW Std Deviation (36.4-46.3) fL Plt Count (182-369) K/mm3 MPV (9.4-12.3) fl Neut % (Auto) (34.0-71.1) % Lymph % (Auto) (19.3-51.7) % Pickett % (Auto) (4.7-12.5) % Eos % (Auto) (0.7-5.8) Baso % (Auto) (0.1-1.2) % Neut # (Auto) (1.56-6.13) K/mm3 Lymph # (Auto) (1.18-3.74) K/mm3 Pickett # (Auto) (0.24-0.36) K/mm3 Eos # (Auto) (0.04-0.36) K/mm3 Baso # (Auto) (0.01-0.08) K/mm3 Manual Slide Review Sodium (136-145) mEq/L Potassium (3.5-5.1) mEq/L Chloride (98-107) mEq/L Carbon Dioxide (21-32) mEq/L Anion Gap (5-15) BUN (7-18) mg/dL Creatinine (0.55-1.02) mg/dL Est Cr Clr Drug Dosing mL/min Estimated GFR (MDRD) (>60) mL/min BUN/Creatinine Ratio (14-18) Glucose (83-115) mg/dL POC Glucose 136 H 305 H 184 H (83-110) mg/dL Calcium (8.5-10.1) mg/dL Magnesium (1.8-2.4) mg/dl Total Bilirubin (0.2-1.0) mg/dL AST (15-37) U/L ALT (14-59) U/L Alkaline Phosphatase (46-116) U/L C-Reactive Protein (<1.0) mg/dL Total Protein (6.4-8.2) g/dl Albumin (3.4-5.0) g/dl Globulin gm/dL Albumin/Globulin Ratio (1-2) 11/01/20 Range/Units 19:45 WBC (3.98-10.04) K/mm3 RBC (3.98-5.22) M/mm3 Hgb (11.2-15.7) gm/dl Hct (34.1-44.9) % MCV (79.4-94.8) fl MCH (25.6-32.2) pg MCHC (32.2-35.5) g/dl RDW Std Deviation (36.4-46.3) fL Plt Count (182-369) K/mm3 MPV (9.4-12.3) fl Neut % (Auto) (34.0-71.1) % Lymph % (Auto) (19.3-51.7) % Pickett % (Auto) (4.7-12.5) % Eos % (Auto) (0.7-5.8) Baso % (Auto) (0.1-1.2) % Neut # (Auto) (1.56-6.13) K/mm3 Lymph # (Auto) (1.18-3.74) K/mm3 Pickett # (Auto) (0.24-0.36) K/mm3 Eos # (Auto) (0.04-0.36) K/mm3 Baso # (Auto) (0.01-0.08) K/mm3 Manual Slide Review Sodium (136-145) mEq/L Potassium (3.5-5.1) mEq/L Chloride (98-107) mEq/L Carbon Dioxide (21-32) mEq/L Anion Gap (5-15) BUN (7-18) mg/dL Creatinine (0.55-1.02) mg/dL Est Cr Clr Drug Dosing mL/min Estimated GFR (MDRD) (>60) mL/min BUN/Creatinine Ratio (14-18) Glucose (83-115) mg/dL POC Glucose 264 H (83-110) mg/dL Calcium (8.5-10.1) mg/dL Magnesium (1.8-2.4) mg/dl Total Bilirubin (0.2-1.0) mg/dL AST (15-37) U/L ALT (14-59) U/L Alkaline Phosphatase (46-116) U/L C-Reactive Protein (<1.0) mg/dL Total Protein (6.4-8.2) g/dl Albumin (3.4-5.0) g/dl Globulin gm/dL Albumin/Globulin Ratio (1-2) Valerio Results Last 24 Hours: Microbiology 10/31/20 11:22 Aerobic Blood Culture - Preliminary Blood - Venous - Lab Draw NO GROWTH AFTER 1 DAY Anaerobic Blood Culture - Preliminary NO GROWTH AFTER 1 DAY 10/31/20 11:10 Aerobic Blood Culture - Preliminary Blood - Venous NO GROWTH AFTER 1 DAY Anaerobic Blood Culture - Preliminary NO GROWTH AFTER 1 DAY 10/31/20 10:26 Gram Stain - Final Foot, Right Anaerobic Culture - Preliminary Gram Positive Cocci Beta Streptococcus Group B Med Orders - Current: Current Medications Acetaminophen (Tylenol) 650 mg PO Q4H PRN PRN Reason: Pain (Mild 1-3)/fever Diltiazem HCl (Dilacor Xr) 240 mg PO DAILY REPLACED BY [facility] Last Admin: 11/01/20 09:02 Dose: 240 mg Documented by: Ezetimibe (Zetia) 10 mg PO DAILY REPLACED BY [facility] Last Admin: 11/01/20 09:02 Dose: 10 mg Documented by: Enoxaparin Sodium (Lovenox) 120 mg SUBCUT Q12H REPLACED BY [facility] Enoxaparin Sodium (Lovenox) 120 mg SUBCUT BEDTIME REPLACED BY [facility] Stop: 11/01/20 21:01 Famotidine (Pepcid) 20 mg PO BEDTIME REPLACED BY [facility] Last Admin: 11/01/20 09:00 Dose: 20 mg Documented by: Furosemide (Lasix) 40 mg PO BIDDIURETIC REPLACED BY [facility] Last Admin: 11/01/20 14:21 Dose: 40 mg Documented by: Hydroxychloroquine Sulfate (Plaquenil) 200 mg PO DAILY REPLACED BY [facility] Last Admin: 11/01/20 08:59 Dose: 200 mg Documented by: Vancomycin HCl 1 gm/ Sodium (Chloride) 250 mls @ 250 mls/hr IV Q24H REPLACED BY [facility] Last Admin: 11/01/20 18:26 Dose: 250 mls/hr Documented by: Cefepime HCl 2 gm/ Premix 50 mls @ 100 mls/hr IV Q24H REPLACED BY [facility] Last Admin: 11/01/20 16:27 Dose: 100 mls/hr Documented by: Insulin Glargine (Lantus) 20 unit SUBCUT BID REPLACED BY [facility] Last Admin: 11/01/20 08:56 Dose: 20 units Documented by: Insulin Human Lispro (Humalog) 0 unit SUBCUT QIDACANDBED REPLACED BY [facility]; Protocol Last Admin: 11/01/20 20:02 Dose: 6 unit Documented by: Insulin Human Lispro (Humalog) 5 unit SUBCUT TIDAC REPLACED BY [facility] Last Admin: 11/01/20 20:02 Dose: 5 units Documented by: Lisinopril (Prinivil) 20 mg PO DAILY REPLACED BY [facility] Last Admin: 11/01/20 09:02 Dose: 20 mg Documented by: Lorazepam (Ativan) 0.5 mg PO QID PRN PRN Reason: Anxiety Last Admin: 10/31/20 20:19 Dose: 0.5 mg Documented by: Magnesium Oxide (Magnesium Oxide) 200 mg PO DAILY REPLACED BY [facility] Last Admin: 11/01/20 08:58 Dose: 200 mg Documented by: Metoprolol Tartrate (Lopressor) 50 mg PO BID REPLACED BY [facility] Last Admin: 11/01/20 09:06 Dose: 50 mg Documented by: Leflunomide 20mg Tab (Own Med) 20 mg PO BEDTIME REPLACED BY [facility] Last Admin: 10/31/20 20:24 Dose: 20 mg Documented by: Ondansetron HCl (Zofran) 4 mg IV Q4H PRN PRN Reason: Nausea/Vomiting Prednisone (Prednisone) 5 mg PO DAILY REPLACED BY [facility] Last Admin: 11/01/20 09:10 Dose: 5 mg Documented by: Saccharomyces Boulardii (Florastor) 250 mg PO BID REPLACED BY [facility] Last Admin: 11/01/20 09:00 Dose: 250 mg Documented by: Simvastatin (Zocor) 20 mg PO DAILY REPLACED BY [facility] Last Admin: 11/01/20 09:01 Dose: 20 mg Documented by: Sodium Chloride (Saline Flush) 10 ml FLUSH ASDIRECTED PRN PRN Reason: Keep Vein Open Last Admin: 10/31/20 11:42 Dose: 10 ml Documented by: Vancomycin HCl (Pharmacy To Dose - Vancomycin) 1 dose .XX ASDIRECTED PRN PRN Reason: RX TO DOSE VANCO Discontinued Medications Apixaban (Eliquis) 5 mg PO BID REPLACED BY [facility] Last Admin: 10/31/20 20:19 Dose: 5 mg Documented by: Apixaban (Eliquis) 5 mg PO BID REPLACED BY [facility] Last Admin: 11/01/20 09:06 Dose: 5 mg Documented by: Famotidine (Pepcid) 20 mg PO BID REPLACED BY [facility] Last Admin: 10/31/20 20:19 Dose: 20 mg Documented by: Ceftriaxone Sodium 2 gm/ (Sodium Chloride) 100 mls @ 200 mls/hr IV STAT ONE Stop: 10/31/20 10:56 Last Admin: 10/31/20 10:41 Dose: Not Given Documented by: Ceftriaxone Sodium 2 gm/ (Sodium Chloride) 100 mls @ 200 mls/hr IV ONETIME ONE Stop: 10/31/20 11:03 Last Admin: 10/31/20 11:42 Dose: 200 mls/hr Documented by: Cefepime HCl 2 gm/ Premix 50 mls @ 100 mls/hr IV ONETIME ONE Stop: 10/31/20 16:46 Last Admin: 10/31/20 17:23 Dose: 100 mls/hr Documented by: Metoprolol Tartrate (Lopressor) 50 mg PO BID REPLACED BY [facility] Last Admin: 10/31/20 20:20 Dose: 50 mg Documented by: - Exam Quality Assessment: Supplemental Oxygen General: Alert, Oriented HEENT: Pupils Equal, Mucous Membr. Moist/Pastos Neck: Supple Lungs: Normal Respiratory Effort, Crackles (Bibasilar) Cardiovascular: Regular Rate, Regular Rhythm GI/Abdominal Exam: Normal Bowel Sounds, Soft, Non-Tender, No Organomegaly, No Distention, No Abnormal Bruit Back Exam: Normal Inspection Extremities: Normal Inspection, Normal Range of Motion, Non-Tender, No Pedal Edema, Normal Capillary Refill Peripheral Pulses: 1+: Posterior Tibial (L), Posterior Tibial (R), Dorsalis Pedis (L), Dorsalis Pedis (R) Skin: Other (No improvement in purulence coming from the right sole of the foot. Area appears to be less erythematous today but there is increase in fibrosis tissue in the ulcer. Left foot continues to have a swollen, nontender ulcer in the left foot and the sole of the foot.) Psy/Mental Status: Alert, Normal Affect, Normal Mood Sepsis Event Note - Evaluation Sepsis Screening Result: No Definite Risk - Focused Exam Vital Signs: Vital Signs Temp Pulse Resp BP Pulse Ox 11/01/20 15:26 98.1 F 86 14 132/86 96 11/01/20 11:18 98.1 F 89 14 130/88 99 11/01/20 09:06 110 H 117/69 11/01/20 09:02 117/69 - Problem List & Annotations (1) Diabetic nephropathy Status: Acute Current Visit: Yes (2) Diabetic foot ulcer SNOMED Code(s): 577229243 Code(s): E11.621 - TYPE 2 DIABETES MELLITUS WITH FOOT ULCER; L97.509 - NON- PRESSURE CHRONIC ULCER OTH PRT UNSP FOOT W UNSP SEVERITY Status: Acute Current Visit: Yes Qualifiers: Diabetic foot ulcer location: midfoot Diabetes mellitus type: type 2 Laterality: right Non-pressure ulcer stage: unspecified non-pressure ulcer stage Qualified Code(s): E11.621 - Type 2 diabetes mellitus with foot ulcer; L97.419 - Non-pressure chronic ulcer of right heel and midfoot with unspecified severity (3) Congestive heart failure SNOMED Code(s): 06699429 Code(s): I50.9 - HEART FAILURE, UNSPECIFIED Status: Acute Priority: Medium Current Visit: No Qualifiers: Heart failure type: diastolic Heart failure chronicity: acute on chronic Qualified Code(s): I50.33 - Acute on chronic diastolic (congestive) heart failure (4) Chronic renal insufficiency, stage III (moderate) SNOMED Code(s): 769955089 Code(s): N18.30 - CHRONIC KIDNEY DISEASE, STAGE 3 UNSPECIFIED Status: Chronic Priority: Medium Current Visit: No Onset Date: ~09/02/20 (5) LEILANI on CPAP SNOMED Code(s): 04557178 Code(s): G47.33 - OBSTRUCTIVE SLEEP APNEA (ADULT) (PEDIATRIC); Z99.89 - DEPENDENCE ON OTHER ENABLING MACHINES AND DEVICES Status: Chronic Priority: Medium Current Visit: No Onset Date: ~09/02/20 Annotation/Comment:: compliant with cpap (6) Rheumatoid arthritis SNOMED Code(s): 83288395 Code(s): M06.9 - RHEUMATOID ARTHRITIS, UNSPECIFIED Status: Chronic Priority: Medium Current Visit: No Onset Date: ~09/02/20 Qualifiers: Rheumatoid arthritis location: multiple sites Annotation/Comment:: in chronic achey/pain state no changes in meds on chronic low dose steriods. - Problem List Review Problem List Initiated/Reviewed/Updated: Yes - My Orders Last 24 Hours: My Active Orders 10/31/20 21:00 Insulin Glarg,Human.Rec.Analog [LantUS] 20 unit SUBCUT BID Leflunomide 20 mg PO BEDTIME Saccharomyces Boulardii [Florastor] 250 mg PO BID 10/31/20 23:00 Communication Order [RC] ROUTINE 11/01/20 04:55 Insert Rodriguez Catheter [Insert Urinary Catheter] [OM.PC] Q24H Urinary Catheter Assessment [RC] ASDIRECTED 11/01/20 04:56 Bladder Scan [RC] ASDIRECTED 11/01/20 07:00 Insulin Lispro [HumaLOG] 5 unit SUBCUT TIDAC 11/01/20 09:00 Diltiazem [Dilacor XR] 240 mg PO DAILY Ezetimibe [Zetia] 10 mg PO DAILY Hydroxychloroquine [Plaquenil] 200 mg PO DAILY Magnesium Oxide 200 mg PO DAILY Metoprolol Tartrate [Lopressor] 50 mg PO BID Simvastatin [Zocor] 20 mg PO DAILY lisinopriL [Prinivil] 20 mg PO DAILY predniSONE 5 mg PO DAILY 11/01/20 17:00 Cefepime [Maxipime in D5W 2 GM/50 ML] 2 gm Premix Bag 1 bag IV Q24H 11/01/20 21:00 Enoxaparin [Lovenox] 120 mg SUBCUT BEDTIME Enoxaparin [Lovenox] 120 mg SUBCUT Q12H Famotidine [Pepcid] 20 mg PO BEDTIME 11/02/20 05:11 C-REACTIVE PROTEIN [CHEM] AM CBC WITH AUTO DIFF [HEME] AM CMP [COMPREHENSIVE METABOLIC PN,CMP] [CHEM] AM MAGNESIUM [CHEM] AM 11/02/20 17:00 VANCOMYCIN TROUGH [CHEM] Timed - Plan Plan:: Assessment 10/31/2020 80-year-old female with diabetic peripheral neuropathy presents to the emergency department with worsening of her chronic right plantar ulcer and development of possible left plantar ulcer. * Nonhealing diabetic foot ulcer * Patient discharged on October 21 on Augmentin. * She is followed by cancer program director Dr. Pemberton * Systemic symptoms including fever, chills, hypoglycemia and nausea. * White count 13,000, CRP 6.5, lactic acid 1.1 * High risk for antibiotic associated diarrhea Insulin-dependent diabetes * Discharged on Lantus 20 units twice daily and sliding scale insulin * Blood sugars have been labile secondary to infection Atrial fibrillation, CHF, aortic stenosis, cor pulmonale with oxygen dependent congestive heart failure * Atrial fibrillation with rate less than 100 * Anticoagulated on Eliquis * On baseline 2 L nasal cannula O2 at rest * On BiPAP 6 L O2 bled in at night Stage III diabetic nephropathy * Creatinine 1.5, estimated GFR 33 on admission - Essentially at baseline Multiple chronic medical problems as above. Plan * Admit to medical floor * Start vancomycin and cefepime * Cultures done in the emergency department of both wound and blood * Nursing for wound care * Contact Dr. Pemberton on Monday * Follow CBC, CMP, C-reactive protein * Decrease Lantus to 20 units twice daily and increase as necessary. * Humalog 5 units with each meal and add sliding scale * Switch Eliquis to Lovenox * CODE STATUS: DNR/DNI * VTE prophylaxis with Lovenox * Consider further imaging of foot. Only plain films have been performed so far. 11/01/2020 80-year-old female with diabetic foot ulcer bilaterally right worse than left. Systemic symptoms have improved greatly on vancomycin and cefepime. Blood cultures are growing out gram-positive cocci probably staph aureus and beta Streptococcus group B. Vancomycin is appropriate for both at this time. We will continue both antibiotics low. Blood sugars have been in the low to mid 200s. At this time we will not change the insulin dose, Lantus 20 units twice daily, Humalog 5 units with each meal, medium sliding scale insulin. White count has decreased to 7.52 but C-reactive protein did increase to 14.4. Renal function has not changed with a creatinine of 1.4 and estimated GFR 36. She does exhibit worsening thrombocytopenia with platelets of 149. Otherwise she is having her typical chronic steady state. Plan: Continue with cefepime and vancomycin. Await recommendations by Dr. Pemberton in the morning. Continue to monitor blood sugars 4 times daily and make adjustments as necessary. Consider imaging of foot based on recommendations by Dr. Pemberton. I irrigated and debrided the wound with Betadine, forceps, and sterile cotton swabs today.
--- NOTE | 2020-11-01 20:55 | PCM.PRNOTE ---
- Free Text/Narrative Note: Ultrasound guided IV start on Medical-Surgical floor Requested to start a peripheral IV after several previous unsuccessful attempts by RNs Linear U/S probe was used to identify left basilic vein about 2" above antecubital fossa, successful cannulation on 1st attempt with 20G 1.88" catheter, good flush and blood return, catheter secured, Tegaderm dressing with Mastisol applied. Post scan confirmed IV catheter intravasal position. Start: 1999 End: 2014
[2020-11-01] MEDS ORDERED: Enoxaparin 120 MG/0.8 ML Syringe SUBCUT SCH (21:00)
[2020-11-01] MEDS: LEFLUNOMIDE 20 MG PO SCH (21:19)
[2020-11-01] MEDS: LORazepam 0.5 MG Tab PO PRN (21:24)
[2020-11-02] MEDS: Furosemide 20 MG Tab PO SCH ×2 (07:12→16:24)
[2020-11-02] MEDS: Insulin Glarg,Human.Rec.Analog 100 Unit/ML SUBCUT SCH ×5 (08:04→21:30)
[2020-11-02] MEDS: Magnesium Oxide 400 MG Tab PO SCH (08:06)
[2020-11-02] MEDS: predniSONE 1 MG Tab PO SCH (08:07)
[2020-11-02] MEDS: Ezetimibe 10 MG Tab PO SCH (08:08)
[2020-11-02] MEDS: Simvastatin 20 MG Tab PO SCH (08:08)
[2020-11-02] MEDS: Hydroxychloroquine 200 MG Tab PO SCH (08:09)
[2020-11-02] MEDS: Lisinopril 20 MG Tab PO SCH (08:09)
[2020-11-02] MEDS: Diltiazem 240 MG Cap.ER PO SCH (08:09)
[2020-11-02] MEDS: Metoprolol Tartrate 50 MG Tab PO SCH ×2 (08:10→21:15)
[2020-11-02] MEDS: Saccharomyces Boulardii (Probiotic) 250 MG Cap PO SCH ×2 (08:10→21:15)
--- NOTE | 2020-11-02 08:31 | PCM.PN ---
<Domenic Barrett - Last Filed: 11/02/20 12:35> - General Info Date of Service: 11/02/20 Admission Dx/Problem (Free Text): Admission Diagnosis/Problem Admission Diagnosis/Problem Diabetic foot ulcer Subjective Update: In to see Bandar. She is lying in bed and reports she has been urinating in the bedpan frequently. Denies any other urinary symptoms. Anesthesia was in to place another peripheral IV line and we will convert this over to a PICC line. Patient reports she otherwise feels pretty good. We discussed plan of care and ruling out osteomyelitis and she is in agreement to this plan. No nursing or patient concerns. Functional Status: Reports: Pain Controlled, Tolerating Diet, Urinating. Denies: Ambulating, New Symptoms - Review of Systems General: Reports: No Symptoms. Denies: Fever, Weakness, Fatigue, Malaise, Chills HEENT: Reports: No Symptoms. Denies: Headaches, Sore Throat Pulmonary: Reports: Shortness of Breath (chronic and at baseline ). Denies: Cough, Sputum, Wheezing Cardiovascular: Reports: Dyspnea on Exertion (chronic and at baseline ). Denies: Chest Pain, Palpitations Gastrointestinal: Reports: Constipation. Denies: Abdominal Pain, Diarrhea, Nausea, Vomiting Genitourinary: Reports: No Symptoms. Denies: Pain Musculoskeletal: Reports: No Symptoms Skin: Reports: No Symptoms. Denies: Cyanosis Neurological: Reports: Pre-Existing Deficit, Difficulty Walking (2/2 pain ), Gait Disturbance. Denies: Confusion Psychiatric: Reports: No Symptoms - Patient Data Vitals - Most Recent: Last Vital Signs Temp 97.9 F 11/02/20 07:56 Pulse 110 H 11/02/20 08:10 Resp 16 11/02/20 07:56 BP 135/91 H 11/02/20 08:10 Pulse Ox 99 11/02/20 07:56 Weight - Most Recent: 122.878 kg I&O - Last 24 Hours: Intake & Output 11/01/20 11/02/20 11/02/20 22:59 06:59 14:59 Intake Total 1020 600 Output Total 800 975 Balance 220 -375 Lab Results Last 24 Hours: Laboratory Results - last 24 hr 11/01/20 11/01/20 11/01/20 Range/Units 11:15 17:18 19:45 WBC (3.98-10.04) K/mm3 RBC (3.98-5.22) M/mm3 Hgb (11.2-15.7) gm/dl Hct (34.1-44.9) % MCV (79.4-94.8) fl MCH (25.6-32.2) pg MCHC (32.2-35.5) g/dl RDW Std Deviation (36.4-46.3) fL Plt Count (182-369) K/mm3 MPV (9.4-12.3) fl Neut % (Auto) (34.0-71.1) % Lymph % (Auto) (19.3-51.7) % [place] % (Auto) (4.7-12.5) % Eos % (Auto) (0.7-5.8) Baso % (Auto) (0.1-1.2) % Neut # (Auto) (1.56-6.13) K/mm3 Lymph # (Auto) (1.18-3.74) K/mm3 [place] # (Auto) (0.24-0.36) K/mm3 Eos # (Auto) (0.04-0.36) K/mm3 Baso # (Auto) (0.01-0.08) K/mm3 Sodium (136-145) mEq/L Potassium (3.5-5.1) mEq/L Chloride (98-107) mEq/L Carbon Dioxide (21-32) mEq/L Anion Gap (5-15) BUN (7-18) mg/dL Creatinine (0.55-1.02) mg/dL Est Cr Clr Drug Dosing mL/min Estimated GFR (MDRD) (>60) mL/min BUN/Creatinine Ratio (14-18) Glucose (83-115) mg/dL POC Glucose 305 H 184 H 264 H (83-110) mg/dL Calcium (8.5-10.1) mg/dL Magnesium (1.8-2.4) mg/dl Total Bilirubin (0.2-1.0) mg/dL AST (15-37) U/L ALT (14-59) U/L Alkaline Phosphatase (46-116) U/L C-Reactive Protein (<1.0) mg/dL Total Protein (6.4-8.2) g/dl Albumin (3.4-5.0) g/dl Globulin gm/dL Albumin/Globulin Ratio (1-2) 11/01/20 11/02/20 11/02/20 Range/Units 22:12 06:19 06:19 WBC 5.71 (3.98-10.04) K/mm3 RBC 3.24 L (3.98-5.22) M/mm3 Hgb 9.2 L (11.2-15.7) gm/dl Hct 30.5 L (34.1-44.9) % MCV 94.1 (79.4-94.8) fl MCH 28.4 (25.6-32.2) pg MCHC 30.2 L (32.2-35.5) g/dl RDW Std Deviation 50.3 H (36.4-46.3) fL Plt Count 162 L (182-369) K/mm3 MPV 10.7 (9.4-12.3) fl Neut % (Auto) 67.8 (34.0-71.1) % Lymph % (Auto) 16.5 L (19.3-51.7) % [place] % (Auto) 12.3 (4.7-12.5) % Eos % (Auto) 2.8 (0.7-5.8) Baso % (Auto) 0.4 (0.1-1.2) % Neut # (Auto) 3.88 (1.56-6.13) K/mm3 Lymph # (Auto) 0.94 L (1.18-3.74) K/mm3 [place] # (Auto) 0.70 H (0.24-0.36) K/mm3 Eos # (Auto) 0.16 (0.04-0.36) K/mm3 Baso # (Auto) 0.02 (0.01-0.08) K/mm3 Sodium 146 H (136-145) mEq/L Potassium 3.6 (3.5-5.1) mEq/L Chloride 105 (98-107) mEq/L Carbon Dioxide 32 (21-32) mEq/L Anion Gap 12.6 (5-15) BUN 42 H (7-18) mg/dL Creatinine 1.3 H (0.55-1.02) mg/dL Est Cr Clr Drug Dosing 25.20 mL/min Estimated GFR (MDRD) 40 (>60) mL/min BUN/Creatinine Ratio 32.3 H (14-18) Glucose 112 (83-115) mg/dL POC Glucose 187 H (83-110) mg/dL Calcium 8.8 (8.5-10.1) mg/dL Magnesium 2.0 (1.8-2.4) mg/dl Total Bilirubin 0.3 (0.2-1.0) mg/dL AST 16 (15-37) U/L ALT 18 (14-59) U/L Alkaline Phosphatase 78 (46-116) U/L C-Reactive Protein 10.3 H* (<1.0) mg/dL Total Protein 5.9 L (6.4-8.2) g/dl Albumin 2.1 L (3.4-5.0) g/dl Globulin 3.8 gm/dL Albumin/Globulin Ratio 0.6 L (1-2) 11/02/20 Range/Units 06:27 WBC (3.98-10.04) K/mm3 RBC (3.98-5.22) M/mm3 Hgb (11.2-15.7) gm/dl Hct (34.1-44.9) % MCV (79.4-94.8) fl MCH (25.6-32.2) pg MCHC (32.2-35.5) g/dl RDW Std Deviation (36.4-46.3) fL Plt Count (182-369) K/mm3 MPV (9.4-12.3) fl Neut % (Auto) (34.0-71.1) % Lymph % (Auto) (19.3-51.7) % [place] % (Auto) (4.7-12.5) % Eos % (Auto) (0.7-5.8) Baso % (Auto) (0.1-1.2) % Neut # (Auto) (1.56-6.13) K/mm3 Lymph # (Auto) (1.18-3.74) K/mm3 [place] # (Auto) (0.24-0.36) K/mm3 Eos # (Auto) (0.04-0.36) K/mm3 Baso # (Auto) (0.01-0.08) K/mm3 Sodium (136-145) mEq/L Potassium (3.5-5.1) mEq/L Chloride (98-107) mEq/L Carbon Dioxide (21-32) mEq/L Anion Gap (5-15) BUN (7-18) mg/dL Creatinine (0.55-1.02) mg/dL Est Cr Clr Drug Dosing mL/min Estimated GFR (MDRD) (>60) mL/min BUN/Creatinine Ratio (14-18) Glucose (83-115) mg/dL POC Glucose 115 H (83-110) mg/dL Calcium (8.5-10.1) mg/dL Magnesium (1.8-2.4) mg/dl Total Bilirubin (0.2-1.0) mg/dL AST (15-37) U/L ALT (14-59) U/L Alkaline Phosphatase (46-116) U/L C-Reactive Protein (<1.0) mg/dL Total Protein (6.4-8.2) g/dl Albumin (3.4-5.0) g/dl Globulin gm/dL Albumin/Globulin Ratio (1-2) Valerio Results Last 24 Hours: Microbiology 10/31/20 11:22 Aerobic Blood Culture - Preliminary Blood - Venous - Lab Draw NO GROWTH AFTER 1 DAY Anaerobic Blood Culture - Preliminary NO GROWTH AFTER 1 DAY 10/31/20 11:10 Aerobic Blood Culture - Preliminary Blood - Venous NO GROWTH AFTER 1 DAY Anaerobic Blood Culture - Preliminary NO GROWTH AFTER 1 DAY 10/31/20 10:26 Gram Stain - Final Foot, Right Anaerobic Culture - Preliminary Gram Positive Cocci Beta Streptococcus Group B Med Orders - Current: Current Medications Acetaminophen (Tylenol) 650 mg PO Q4H PRN PRN Reason: Pain (Mild 1-3)/fever Diltiazem HCl (Dilacor Xr) 240 mg PO DAILY [facility] Last Admin: 11/02/20 08:09 Dose: 240 mg Documented by: Ezetimibe (Zetia) 10 mg PO DAILY [facility] Last Admin: 11/02/20 08:08 Dose: 10 mg Documented by: Enoxaparin Sodium (Lovenox) 120 mg SUBCUT Q24H [facility] Famotidine (Pepcid) 20 mg PO BEDTIME [facility] Last Admin: 11/01/20 21:20 Dose: 20 mg Documented by: Furosemide (Lasix) 40 mg PO BIDDIURETIC [facility] Last Admin: 11/02/20 07:12 Dose: 40 mg Documented by: Hydroxychloroquine Sulfate (Plaquenil) 200 mg PO DAILY [facility] Last Admin: 11/02/20 08:09 Dose: 200 mg Documented by: Vancomycin HCl 1 gm/ Sodium (Chloride) 250 mls @ 250 mls/hr IV Q24H [facility] Last Admin: 11/01/20 18:26 Dose: 250 mls/hr Documented by: Cefepime HCl 2 gm/ Premix 50 mls @ 100 mls/hr IV Q24H [facility] Last Admin: 11/01/20 16:27 Dose: 100 mls/hr Documented by: Insulin Glargine (Lantus) 20 unit SUBCUT BID [facility] Last Admin: 11/02/20 08:04 Dose: 20 units Documented by: Insulin Human Lispro (Humalog) 0 unit SUBCUT QIDACANDBED [facility]; Protocol Last Admin: 11/02/20 07:13 Dose: Not Given Documented by: Insulin Human Lispro (Humalog) 5 unit SUBCUT TIDAC [facility] Last Admin: 11/02/20 08:05 Dose: 5 units Documented by: Lisinopril (Prinivil) 20 mg PO DAILY [facility] Last Admin: 11/02/20 08:09 Dose: 20 mg Documented by: Lorazepam (Ativan) 0.5 mg PO QID PRN PRN Reason: Anxiety Last Admin: 11/01/20 21:24 Dose: 0.5 mg Documented by: Magnesium Oxide (Magnesium Oxide) 200 mg PO DAILY [facility] Last Admin: 11/02/20 08:06 Dose: 200 mg Documented by: Metoprolol Tartrate (Lopressor) 50 mg PO BID [facility] Last Admin: 11/02/20 08:10 Dose: 50 mg Documented by: Leflunomide 20mg Tab (Own Med) 20 mg PO BEDTIME [facility] Last Admin: 11/01/20 21:19 Dose: 20 mg Documented by: Ondansetron HCl (Zofran) 4 mg IV Q4H PRN PRN Reason: Nausea/Vomiting Prednisone (Prednisone) 5 mg PO DAILY [facility] Last Admin: 11/02/20 08:07 Dose: 5 mg Documented by: Saccharomyces Boulardii (Florastor) 250 mg PO BID [facility] Last Admin: 11/02/20 08:10 Dose: 250 mg Documented by: Simvastatin (Zocor) 20 mg PO DAILY [facility] Last Admin: 11/02/20 08:08 Dose: 20 mg Documented by: Sodium Chloride (Saline Flush) 10 ml FLUSH ASDIRECTED PRN PRN Reason: Keep Vein Open Last Admin: 10/31/20 11:42 Dose: 10 ml Documented by: Vancomycin HCl (Pharmacy To Dose - Vancomycin) 1 dose .XX ASDIRECTED PRN PRN Reason: RX TO DOSE VANCO Discontinued Medications Apixaban (Eliquis) 5 mg PO BID [facility] Last Admin: 10/31/20 20:19 Dose: 5 mg Documented by: Apixaban (Eliquis) 5 mg PO BID [facility] Last Admin: 11/01/20 09:06 Dose: 5 mg Documented by: Enoxaparin Sodium (Lovenox) 120 mg SUBCUT BEDTIME [facility] Stop: 11/01/20 21:01 Last Admin: 11/01/20 21:21 Dose: 120 mg Documented by: Famotidine (Pepcid) 20 mg PO BID [facility] Last Admin: 10/31/20 20:19 Dose: 20 mg Documented by: Ceftriaxone Sodium 2 gm/ (Sodium Chloride) 100 mls @ 200 mls/hr IV STAT ONE Stop: 10/31/20 10:56 Last Admin: 10/31/20 10:41 Dose: Not Given Documented by: Ceftriaxone Sodium 2 gm/ (Sodium Chloride) 100 mls @ 200 mls/hr IV ONETIME ONE Stop: 10/31/20 11:03 Last Admin: 10/31/20 11:42 Dose: 200 mls/hr Documented by: Cefepime HCl 2 gm/ Premix 50 mls @ 100 mls/hr IV ONETIME ONE Stop: 10/31/20 16:46 Last Admin: 10/31/20 17:23 Dose: 100 mls/hr Documented by: Metoprolol Tartrate (Lopressor) 50 mg PO BID [facility] Last Admin: 10/31/20 20:20 Dose: 50 mg Documented by: - Exam Quality Assessment: Supplemental Oxygen (2L), DVT Prophylaxis General: Alert, Oriented, Cooperative, No Acute Distress HEENT: Pupils Equal, Pupils Reactive, Mucous Membr. Moist/[place] Neck: Supple, Trachea Midline Lungs: Normal Respiratory Effort, Decreased Breath Sounds, Crackles Cardiovascular: Regular Rate, Irregular Rhythm GI/Abdominal Exam: Normal Bowel Sounds, Soft, Non-Tender, No Distention (Female) Exam: Deferred Back Exam: Normal Inspection, Decreased Range of Motion Extremities: Non-Tender (only pain is when attempting to bear weight ), Pedal Edema, Limited Range of Motion, Other (Patient has Mepilex bandage on plantar aspect of left foot with healing prior diabetic foot ulcer. Right plantar aspect of foot has large ulcer with purulent drainage.). No: Normal Inspection Skin: Warm, Dry, Intact Wound/Incisions: Drainage, Erythema Neurological: No New Focal Deficit Psy/Mental Status: Alert, Normal Affect, Normal Mood Sepsis Event Note - Evaluation Sepsis Screening Result: No Definite Risk - Focused Exam Vital Signs: Vital Signs Temp Pulse Resp BP Pulse Ox 11/02/20 08:10 110 H 135/91 H 11/02/20 08:09 135/91 H 11/02/20 07:56 97.9 F 110 H 16 135/91 H 99 11/02/20 03:32 98.1 F 95 18 135/89 98 11/02/20 00:00 98.1 F 58 L 20 103/64 100 11/01/20 21:20 74 112/56 L - Problem List & Annotations (1) Diabetic foot ulcer SNOMED Code(s): 072819023 Code(s): E11.621 - TYPE 2 DIABETES MELLITUS WITH FOOT ULCER; L97.509 - NON- PRESSURE CHRONIC ULCER OTH PRT UNSP FOOT W UNSP SEVERITY Status: Acute Priority: High Current Visit: Yes Qualifiers: Diabetic foot ulcer location: midfoot Diabetes mellitus type: type 2 Laterality: right Non-pressure ulcer stage: unspecified non-pressure ulcer stage Qualified Code(s): E11.621 - Type 2 diabetes mellitus with foot ulcer; L97.419 - Non-pressure chronic ulcer of right heel and midfoot with unspecified severity (2) Diabetic nephropathy Status: Chronic Priority: Medium Current Visit: Yes Qualifiers: Diabetes mellitus type: type 2 Qualified Code(s): E11.21 - Type 2 diabetes mellitus with diabetic nephropathy (3) Atrial fibrillation SNOMED Code(s): 56065801 Code(s): I48.91 - UNSPECIFIED ATRIAL FIBRILLATION Status: Chronic Priority: Medium Current Visit: No Qualifiers: Atrial fibrillation type: unspecified Qualified Code(s): I48.91 - Unspecified atrial fibrillation (4) Aortic stenosis SNOMED Code(s): 23585273 Code(s): I35.0 - NONRHEUMATIC AORTIC (VALVE) STENOSIS Status: Chronic Priority: Low Current Visit: No Qualifiers: Cardiac valve disease etiology: etiology unspecified Qualified Code(s): I35.0 - Nonrheumatic aortic (valve) stenosis (5) Cor pulmonale, chronic SNOMED Code(s): 78926373 Code(s): I27.81 - COR PULMONALE (CHRONIC) Status: Chronic Priority: Medium Current Visit: No (6) Supplemental oxygen dependent SNOMED Code(s): 614036299476 Code(s): Z99.81 - DEPENDENCE ON SUPPLEMENTAL OXYGEN Status: Chronic Priority: Medium Current Visit: No Onset Date: ~09/02/20 (7) Chronic renal insufficiency, stage III (moderate) SNOMED Code(s): 263270113 Code(s): N18.30 - CHRONIC KIDNEY DISEASE, STAGE 3 UNSPECIFIED Status: Chronic Priority: Medium Current Visit: No Onset Date: ~09/02/20 (8) Diabetes mellitus type 2 in obese SNOMED Code(s): 95550649 Code(s): E11.69 - TYPE 2 DIABETES MELLITUS WITH OTHER SPECIFIED COMPLICATION; E66.9 - OBESITY, UNSPECIFIED Status: Chronic Priority: Medium Current Visit: No Onset Date: ~09/02/20 (9) LEILANI on CPAP SNOMED Code(s): 50884557 Code(s): G47.33 - OBSTRUCTIVE SLEEP APNEA (ADULT) (PEDIATRIC); Z99.89 - DEPENDENCE ON OTHER ENABLING MACHINES AND DEVICES Status: Chronic Priority: Medium Current Visit: No Onset Date: ~09/02/20 Annotation/Comment:: compliant with cpap - Problem List Review Problem List Initiated/Reviewed/Updated: Yes - My Orders Last 24 Hours: My Active Orders 11/02/20 08:30 Foot wo Cont Rt [MR] Routine - Plan Plan:: Assessment 10/31/2020 80-year-old female with diabetic peripheral neuropathy presents to the emergency department with worsening of her chronic right plantar ulcer and development of possible left plantar ulcer. * Nonhealing diabetic foot ulcer * Patient discharged on October 21 on Augmentin. * She is followed by business applications manager Dr. Pemberton * Systemic symptoms including fever, chills, hypoglycemia and nausea. 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 Plan * Admit to medical floor * Start vancomycin and cefepime * Cultures done in the emergency department of both wound and blood * Nursing for wound care * Contact Dr. Pemberton on Monday * Follow CBC, CMP, C-reactive protein * Decrease Lantus to 20 units twice daily and increase as necessary. * Humalog 5 units with each meal and add sliding scale * Switch Eliquis to Lovenox * CODE STATUS: DNR/DNI * VTE prophylaxis with Lovenox * Consider further imaging of foot. Only plain films have been performed so far. 11/01/2020 80-year-old female with diabetic foot ulcer bilaterally right worse than left. Systemic symptoms have improved greatly on vancomycin and cefepime. Foot cultures are growing out gram-positive cocci probably staph aureus and beta Streptococcus group B. Vancomycin is appropriate for both at this time. We will continue both antibiotics low. Blood sugars have been in the low to mid 200s. At this time we will not change the insulin dose, Lantus 20 units twice daily, Humalog 5 units with each meal, medium sliding scale insulin. White count has decreased to 7.52 but C-reactive protein did increase to 14.4. Renal function has not changed with a creatinine of 1.4 and estimated GFR 36. She does exhibit worsening thrombocytopenia with platelets of 149. Otherwise she is having her typical chronic steady state. Plan: Continue with cefepime and vancomycin. Await recommendations by Dr. Pemberton in the morning. Continue to monitor blood sugars 4 times daily and make adjustments as necessary. Consider imaging of foot based on recommendations by Dr. Pemberton. I irrigated and debrided the wound with Betadine, forceps, and sterile cotton swabs today. 11/02/2020 40-year-old female admitted due to bilateral diabetic foot ulcers with right significantly worse than left. At this time she reports pain is essentially gone. Blood cultures remain negative and wound culture is growing out beta Streptococcus group B and MSSA. WBC remains within normal limits at 5.71. Hemoglobin is up to 9.2. Sodium is 146. Creatinine is improved to 1.3 and BUN is improved to 42. This is resulting in a GFR 40. Blood sugars have been be tween 305 and 115. CRP is improved to 10.3. Protein is down to 5.9 and albumin is very low at 2.1. Nursing has had continuing difficulty with IV access as patient is morbidly obese with a BMI of 52.9. Anesthesia was contacted again to restart patient's IV after it went bad today. Patient will likely need long- term antibiotics and decision was made to place a PICC line. Patient will be sent to MRI to rule out osteomyelitis of the foot. Will attempt to contact Dr. Pemberton today as patient has been following him in the past. Otherwise patient remains clinically stable. We will continue current treatment plan. <Paramjit Ziegler - Last Filed: 11/02/20 13:46> - Patient Data Vitals - Most Recent: Last Vital Signs Temp 36.7 C 11/02/20 12:29 Pulse 87 11/02/20 12:29 Resp 18 11/02/20 12:29 BP 133/76 11/02/20 12:29 Pulse Ox 95 11/02/20 12:29 I&O - Last 24 Hours: Intake & Output 11/01/20 11/02/20 11/02/20 22:59 06:59 14:59 Intake Total 1340 600 320 Output Total 800 975 Balance 540 -375 320 Lab Results Last 24 Hours: Laboratory Results - last 24 hr 11/01/20 11/01/20 11/01/20 Range/Units 17:18 19:45 22:12 WBC (3.98-10.04) K/mm3 RBC (3.98-5.22) M/mm3 Hgb (11.2-15.7) gm/dl Hct (34.1-44.9) % MCV (79.4-94.8) fl MCH (25.6-32.2) pg MCHC (32.2-35.5) g/dl RDW Std Deviation (36.4-46.3) fL Plt Count (182-369) K/mm3 MPV (9.4-12.3) fl Neut % (Auto) (34.0-71.1) % Lymph % (Auto) (19.3-51.7) % [place] % (Auto) (4.7-12.5) % Eos % (Auto) (0.7-5.8) Baso % (Auto) (0.1-1.2) % Neut # (Auto) (1.56-6.13) K/mm3 Lymph # (Auto) (1.18-3.74) K/mm3 [place] # (Auto) (0.24-0.36) K/mm3 Eos # (Auto) (0.04-0.36) K/mm3 Baso # (Auto) (0.01-0.08) K/mm3 Sodium (136-145) mEq/L Potassium (3.5-5.1) mEq/L Chloride (98-107) mEq/L Carbon Dioxide (21-32) mEq/L Anion Gap (5-15) BUN (7-18) mg/dL Creatinine (0.55-1.02) mg/dL Est Cr Clr Drug Dosing mL/min Estimated GFR (MDRD) (>60) mL/min BUN/Creatinine Ratio (14-18) Glucose (83-115) mg/dL POC Glucose 184 H 264 H 187 H (83-110) mg/dL Calcium (8.5-10.1) mg/dL Magnesium (1.8-2.4) mg/dl Total Bilirubin (0.2-1.0) mg/dL AST (15-37) U/L ALT (14-59) U/L Alkaline Phosphatase (46-116) U/L C-Reactive Protein (<1.0) mg/dL Total Protein (6.4-8.2) g/dl Albumin (3.4-5.0) g/dl Globulin gm/dL Albumin/Globulin Ratio (1-2) 11/02/20 11/02/20 11/02/20 Range/Units 06:19 06:19 06:27 WBC 5.71 (3.98-10.04) K/mm3 RBC 3.24 L (3.98-5.22) M/mm3 Hgb 9.2 L (11.2-15.7) gm/dl Hct 30.5 L (34.1-44.9) % MCV 94.1 (79.4-94.8) fl MCH 28.4 (25.6-32.2) pg MCHC 30.2 L (32.2-35.5) g/dl RDW Std Deviation 50.3 H (36.4-46.3) fL Plt Count 162 L (182-369) K/mm3 MPV 10.7 (9.4-12.3) fl Neut % (Auto) 67.8 (34.0-71.1) % Lymph % (Auto) 16.5 L (19.3-51.7) % [place] % (Auto) 12.3 (4.7-12.5) % Eos % (Auto) 2.8 (0.7-5.8) Baso % (Auto) 0.4 (0.1-1.2) % Neut # (Auto) 3.88 (1.56-6.13) K/mm3 Lymph # (Auto) 0.94 L (1.18-3.74) K/mm3 [place] # (Auto) 0.70 H (0.24-0.36) K/mm3 Eos # (Auto) 0.16 (0.04-0.36) K/mm3 Baso # (Auto) 0.02 (0.01-0.08) K/mm3 Sodium 146 H (136-145) mEq/L Potassium 3.6 (3.5-5.1) mEq/L Chloride 105 (98-107) mEq/L Carbon Dioxide 32 (21-32) mEq/L Anion Gap 12.6 (5-15) BUN 42 H (7-18) mg/dL Creatinine 1.3 H (0.55-1.02) mg/dL Est Cr Clr Drug Dosing 25.20 mL/min Estimated GFR (MDRD) 40 (>60) mL/min BUN/Creatinine Ratio 32.3 H (14-18) Glucose 112 (83-115) mg/dL POC Glucose 115 H (83-110) mg/dL Calcium 8.8 (8.5-10.1) mg/dL Magnesium 2.0 (1.8-2.4) mg/dl Total Bilirubin 0.3 (0.2-1.0) mg/dL AST 16 (15-37) U/L ALT 18 (14-59) U/L Alkaline Phosphatase 78 (46-116) U/L C-Reactive Protein 10.3 H* (<1.0) mg/dL Total Protein 5.9 L (6.4-8.2) g/dl Albumin 2.1 L (3.4-5.0) g/dl Globulin 3.8 gm/dL Albumin/Globulin Ratio 0.6 L (1-2) Valerio Results Last 24 Hours: Microbiology 10/31/20 11:22 Aerobic Blood Culture - Preliminary Blood - Venous - Lab Draw NO GROWTH AFTER 2 DAYS Anaerobic Blood Culture - Preliminary NO GROWTH AFTER 2 DAYS 10/31/20 11:10 Aerobic Blood Culture - Preliminary Blood - Venous NO GROWTH AFTER 2 DAYS Anaerobic Blood Culture - Preliminary NO GROWTH AFTER 2 DAYS 10/31/20 10:26 Gram Stain - Final Foot, Right Anaerobic Culture - Preliminary Staphylococcus Aureus Beta Streptococcus Group B Med Orders - Current: Current Medications Acetaminophen (Tylenol) 650 mg PO Q4H PRN PRN Reason: Pain (Mild 1-3)/fever Diltiazem HCl (Dilacor Xr) 240 mg PO DAILY [facility] Last Admin: 11/02/20 08:09 Dose: 240 mg Documented by: Ezetimibe (Zetia) 10 mg PO DAILY [facility] Last Admin: 11/02/20 08:08 Dose: 10 mg Documented by: Enoxaparin Sodium (Lovenox) 120 mg SUBCUT Q24H [facility] Famotidine (Pepcid) 20 mg PO BEDTIME [facility] Last Admin: 11/01/20 21:20 Dose: 20 mg Documented by: Furosemide (Lasix) 40 mg PO BIDDIURETIC [facility] Last Admin: 11/02/20 07:12 Dose: 40 mg Documented by: Hydroxychloroquine Sulfate (Plaquenil) 200 mg PO DAILY [facility] Last Admin: 11/02/20 08:09 Dose: 200 mg Documented by: Vancomycin HCl 1 gm/ Sodium (Chloride) 250 mls @ 250 mls/hr IV Q24H [facility] Last Admin: 11/01/20 18:26 Dose: 250 mls/hr Documented by: Cefepime HCl 2 gm/ Premix 50 mls @ 100 mls/hr IV Q24H [facility] Last Admin: 11/01/20 16:27 Dose: 100 mls/hr Documented by: Insulin Glargine (Lantus) 20 unit SUBCUT BID [facility] Last Admin: 11/02/20 11:33 Dose: Not Given Documented by: Insulin Human Lispro (Humalog) 0 unit SUBCUT QIDACANDBED [facility]; Protocol Last Admin: 11/02/20 12:21 Dose: Not Given Documented by: Insulin Human Lispro (Humalog) 5 unit SUBCUT TIDAC [facility] Last Admin: 11/02/20 12:20 Dose: 5 units Documented by: Lisinopril (Prinivil) 20 mg PO DAILY [facility] Last Admin: 11/02/20 08:09 Dose: 20 mg Documented by: Lorazepam (Ativan) 0.5 mg PO QID PRN PRN Reason: Anxiety Last Admin: 11/01/20 21:24 Dose: 0.5 mg Documented by: Magnesium Oxide (Magnesium Oxide) 200 mg PO DAILY [facility] Last Admin: 11/02/20 08:06 Dose: 200 mg Documented by: Metoprolol Tartrate (Lopressor) 50 mg PO BID [facility] Last Admin: 11/02/20 08:10 Dose: 50 mg Documented by: Leflunomide 20mg Tab (Own Med) 20 mg PO BEDTIME [facility] Last Admin: 11/01/20 21:19 Dose: 20 mg Documented by: Ondansetron HCl (Zofran) 4 mg IV Q4H PRN PRN Reason: Nausea/Vomiting Prednisone (Prednisone) 5 mg PO DAILY [facility] Last Admin: 11/02/20 08:07 Dose: 5 mg Documented by: Saccharomyces Boulardii (Florastor) 250 mg PO BID [facility] Last Admin: 11/02/20 08:10 Dose: 250 mg Documented by: Simvastatin (Zocor) 20 mg PO DAILY [facility] Last Admin: 11/02/20 08:08 Dose: 20 mg Documented by: Sodium Chloride (Saline Flush) 10 ml FLUSH ASDIRECTED PRN PRN Reason: Keep Vein Open Last Admin: 10/31/20 11:42 Dose: 10 ml Documented by: Vancomycin HCl (Pharmacy To Dose - Vancomycin) 1 dose .XX ASDIRECTED PRN PRN Reason: RX TO DOSE VANCO Discontinued Medications Apixaban (Eliquis) 5 mg PO BID [facility] Last Admin: 10/31/20 20:19 Dose: 5 mg Documented by: Apixaban (Eliquis) 5 mg PO BID [facility] Last Admin: 11/01/20 09:06 Dose: 5 mg Documented by: Enoxaparin Sodium (Lovenox) 120 mg SUBCUT BEDTIME CJ Stop: 11/01/20 21:01 Last Admin: 11/01/20 21:21 Dose: 120 mg Documented by: Famotidine (Pepcid) 20 mg PO BID [facility] Last Admin: 10/31/20 20:19 Dose: 20 mg Documented by: Ceftriaxone Sodium 2 gm/ (Sodium Chloride) 100 mls @ 200 mls/hr IV STAT ONE Stop: 10/31/20 10:56 Last Admin: 10/31/20 10:41 Dose: Not Given Documented by: Ceftriaxone Sodium 2 gm/ (Sodium Chloride) 100 mls @ 200 mls/hr IV ONETIME ONE Stop: 10/31/20 11:03 Last Admin: 10/31/20 11:42 Dose: 200 mls/hr Documented by: Cefepime HCl 2 gm/ Premix 50 mls @ 100 mls/hr IV ONETIME ONE Stop: 10/31/20 16:46 Last Admin: 10/31/20 17:23 Dose: 100 mls/hr Documented by: Insulin Glargine (Lantus) 20 unit SUBCUT BID [facility] Last Admin: 11/02/20 08:04 Dose: 20 units Documented by: Insulin Glargine (Lantus) 20 unit SUBCUT BID [facility] Metoprolol Tartrate (Lopressor) 50 mg PO BID [facility] Last Admin: 10/31/20 20:20 Dose: 50 mg Documented by: Sepsis Event Note - Focused Exam Vital Signs: Vital Signs Temp Pulse Resp BP Pulse Ox 11/02/20 12:29 36.7 C 87 18 133/76 95 11/02/20 08:10 110 H 135/91 H 11/02/20 08:09 135/91 H 11/02/20 07:56 36.6 C 110 H 16 135/91 H 99 11/02/20 03:32 36.7 C 95 18 135/89 98 - Plan Plan:: I have seen and examined the patient independently of Domenic Hernandez PA-C. I have reviewed the orders and agree with the plan of care as outlined by him. I have discussed the case with him. Please see orders.
[2020-11-02] MEDS ORDERED: Insulin Glarg,Human.Rec.Analog 100 Unit/ML SUBCUT SCH (11:14)
--- NOTE | 2020-11-02 14:17 | CR ---
Chest: Portable supine view of the chest was obtained centered to the right shoulder and right chest. Comparison: Prior chest x-ray of 10/31/20. PICC line is seen. PICC line terminates within the superior vena cava in satisfactory position. No definite acute parenchymal change is seen within the right chest. Heart is enlarged. Impression: 1. PICC line with tip terminating within the superior vena cava which is satisfactory in position. 2. Other stable findings as noted above. Diagnostic code #2
--- NOTE | 2020-11-02 14:21 | PCM.SN.2 ---
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 Chart reviewed. Patient educated regarding risks and benefits. Consent signed and witnessed. Site cleansed with ChloraPrep. Left arm prepped with chloraprep x 3. Lidocaine 1% local anesthetic injected prior to 20ga IV catheter insertion. Masks on everyone in the room. Sterile gown, gloves, mask and drape used. Micro introducer kit used to insert a 4fr [employer] NXT ClearVue PICC inserted in the left arm at 47 cm at the skin per sterile technique with ultrasound guidance. Total catheter length 55 cm. Secured with statlock. Flushes well with NaCl with good blood return. Dressed with transparent dressing with CHG. Chest Xray taken. Confirmation pending per radiology. Bandar tolerated the procedure well with no complaints. Brendan Glynn CRNA REF: [id number] LOT: [id number] EXP: 11/08/2021
[2020-11-02] MEDS: Cefepime 2 GM in Premix Bag 1 BAG IV SCH (16:24)
[2020-11-02] MEDS: Ondansetron 4 MG/2 ML SDV IV PRN (16:43)
[2020-11-02] MEDS ORDERED: Enoxaparin 120 MG/0.8 ML Syringe SUBCUT SCH (21:00)
[2020-11-02] MEDS: LORazepam 0.5 MG Tab PO PRN (21:15)
[2020-11-02] MEDS: Famotidine 20 MG Tab PO SCH (21:15)
[2020-11-02] MEDS: LEFLUNOMIDE 20 MG PO SCH (21:26)
[2020-11-03] MEDS: Furosemide 20 MG Tab PO SCH (06:47)
--- NOTE | 2020-11-03 08:40 | MR ---
MRI right foot Technique: T1 and fat-suppressed sagittal; T2 fat-suppressed, T2 weighted and proton weighted coronal; T1 and T2 fat-suppressed axial images were obtained. Comparison: Prior right foot plain film study of 10/16/20. Findings: Diffuse soft tissue edema is seen most prominent dorsally. Soft tissue edema continues into the ankle. Edema is identified within the phalanx of the second toe presumably due to osteomyelitis. Minimal edema is noted within the base of the proximal phalanx within the first toe which is most likely degenerative. Focal area of edema is seen within the base of the third and fourth metatarsals. Impression: 1. Edema within the phalanx of the second toe presumably due to osteomyelitis. 2. Edema within the base of the third and fourth metatarsals which is less specific for osteomyelitis and may relate to degenerative change. 3. Minimal bone marrow edema within the base of the proximal phalanx of the great toe likely degenerative. 4. Diffuse soft tissue edema. Diagnostic code #3 MTDD
[2020-11-03] MEDS ORDERED: predniSONE 5 MG Tab PO SCH (09:00)
[2020-11-03] MEDS ORDERED: Magnesium Hydroxide 400 MG/5 ML Susp 30 ML Cup PO ONE (09:00)
[2020-11-03] MEDS: Diltiazem 240 MG Cap.ER PO SCH (09:15)
[2020-11-03] MEDS: Lisinopril 20 MG Tab PO SCH (09:15)
[2020-11-03] MEDS: Simvastatin 20 MG Tab PO SCH (09:15)
[2020-11-03] MEDS: Metoprolol Tartrate 50 MG Tab PO SCH (09:16)
[2020-11-03] MEDS: Saccharomyces Boulardii (Probiotic) 250 MG Cap PO SCH (09:16)
[2020-11-03] MEDS: Ezetimibe 10 MG Tab PO SCH (09:16)
[2020-11-03] MEDS: Hydroxychloroquine 200 MG Tab PO SCH (09:16)
[2020-11-03] MEDS: Magnesium Oxide 400 MG Tab PO SCH (09:17)
[2020-11-03] MEDS: Insulin Glarg,Human.Rec.Analog 100 Unit/ML SUBCUT SCH (09:17)
--- NOTE | 2020-11-03 09:23 | PCM.PN ---
<Domenic Barrett - Last Filed: 11/03/20 09:23> - General Info Date of Service: 11/03/20 Admission Dx/Problem (Free Text): Admission Diagnosis/Problem Admission Diagnosis/Problem Diabetic foot ulcer Subjective Update: In to see Bandar. She is laying in bed. She reports she feels much better. She has no sensation in her feet and is feeling no pain. She reports she is at her baseline dyspnea. She continues utilize her CPAP at night with 6 L bleed in and 2 L of oxygen via nasal cannula during the day. Patient's daughter is at bedside and updated on plan. Vitals and labs remained stable. Functional Status: Reports: Pain Controlled, Tolerating Diet, Urinating. Denies: Ambulating, New Symptoms - Review of Systems General: Reports: No Symptoms. Denies: Fever, Weakness, Fatigue, Malaise, Chills HEENT: Reports: No Symptoms. Denies: Headaches, Sore Throat Pulmonary: Reports: Shortness of Breath (baseline ). Denies: Cough, Sputum, Wheezing Cardiovascular: Reports: Dyspnea on Exertion (baseline ). Denies: Chest Pain, Palpitations Gastrointestinal: Reports: No Symptoms. Denies: Abdominal Pain, Constipation, Diarrhea, Nausea, Vomiting Genitourinary: Reports: No Symptoms. Denies: Pain Musculoskeletal: Reports: No Symptoms Skin: Reports: No Symptoms Neurological: Reports: Pre-Existing Deficit, Difficulty Walking, Gait Disturbance. Denies: Confusion Psychiatric: Reports: No Symptoms. Denies: Confusion - Patient Data Vitals - Most Recent: Last Vital Signs Temp 97.7 F 11/03/20 05:52 Pulse 106 H 11/03/20 09:16 Resp 20 11/03/20 05:52 BP 130/88 11/03/20 09:16 Pulse Ox 98 11/03/20 05:52 Weight - Most Recent: 121.517 kg I&O - Last 24 Hours: Intake & Output 11/02/20 11/03/20 11/03/20 22:59 06:59 14:59 Intake Total 1490 500 Output Total 1500 1350 Balance -10 -850 Lab Results Last 24 Hours: Laboratory Results - last 24 hr 11/02/20 11/02/20 11/02/20 Range/Units 12:12 17:18 17:26 WBC (3.98-10.04) K/mm3 RBC (3.98-5.22) M/mm3 Hgb (11.2-15.7) gm/dl Hct (34.1-44.9) % MCV (79.4-94.8) fl MCH (25.6-32.2) pg MCHC (32.2-35.5) g/dl RDW Std Deviation (36.4-46.3) fL Plt Count (182-369) K/mm3 MPV (9.4-12.3) fl Neut % (Auto) (34.0-71.1) % Lymph % (Auto) (19.3-51.7) % [place] % (Auto) (4.7-12.5) % Eos % (Auto) (0.7-5.8) Baso % (Auto) (0.1-1.2) % Neut # (Auto) (1.56-6.13) K/mm3 Lymph # (Auto) (1.18-3.74) K/mm3 [place] # (Auto) (0.24-0.36) K/mm3 Eos # (Auto) (0.04-0.36) K/mm3 Baso # (Auto) (0.01-0.08) K/mm3 Manual Slide Review Sodium (136-145) mEq/L Potassium (3.5-5.1) mEq/L Chloride (98-107) mEq/L Carbon Dioxide (21-32) mEq/L Anion Gap (5-15) BUN (7-18) mg/dL Creatinine (0.55-1.02) mg/dL Est Cr Clr Drug Dosing mL/min Estimated GFR (MDRD) (>60) mL/min BUN/Creatinine Ratio (14-18) Glucose (83-115) mg/dL POC Glucose 136 H 157 H (83-110) mg/dL Calcium (8.5-10.1) mg/dL Magnesium (1.8-2.4) mg/dl C-Reactive Protein (<1.0) mg/dL Vancomycin Trough 9.9 L (10.0-20.0) 11/02/20 11/03/20 11/03/20 Range/Units 21:03 05:55 06:21 WBC 5.21 (3.98-10.04) K/mm3 RBC 3.37 L (3.98-5.22) M/mm3 Hgb 9.5 L (11.2-15.7) gm/dl Hct 32.1 L (34.1-44.9) % MCV 95.3 H (79.4-94.8) fl MCH 28.2 (25.6-32.2) pg MCHC 29.6 L (32.2-35.5) g/dl RDW Std Deviation 50.3 H (36.4-46.3) fL Plt Count 187 (182-369) K/mm3 MPV 10.6 (9.4-12.3) fl Neut % (Auto) 62.7 (34.0-71.1) % Lymph % (Auto) 19.6 (19.3-51.7) % [place] % (Auto) 13.6 H (4.7-12.5) % Eos % (Auto) 3.5 (0.7-5.8) Baso % (Auto) 0.4 (0.1-1.2) % Neut # (Auto) 3.27 (1.56-6.13) K/mm3 Lymph # (Auto) 1.02 L (1.18-3.74) K/mm3 [place] # (Auto) 0.71 H (0.24-0.36) K/mm3 Eos # (Auto) 0.18 (0.04-0.36) K/mm3 Baso # (Auto) 0.02 (0.01-0.08) K/mm3 Manual Slide Review Abnormal smear Sodium (136-145) mEq/L Potassium (3.5-5.1) mEq/L Chloride (98-107) mEq/L Carbon Dioxide (21-32) mEq/L Anion Gap (5-15) BUN (7-18) mg/dL Creatinine (0.55-1.02) mg/dL Est Cr Clr Drug Dosing mL/min Estimated GFR (MDRD) (>60) mL/min BUN/Creatinine Ratio (14-18) Glucose (83-115) mg/dL POC Glucose 204 H 79 L (83-110) mg/dL Calcium (8.5-10.1) mg/dL Magnesium (1.8-2.4) mg/dl C-Reactive Protein (<1.0) mg/dL Vancomycin Trough (10.0-20.0) 11/03/20 11/03/20 Range/Units 06:21 06:21 WBC (3.98-10.04) K/mm3 RBC (3.98-5.22) M/mm3 Hgb (11.2-15.7) gm/dl Hct (34.1-44.9) % MCV (79.4-94.8) fl MCH (25.6-32.2) pg MCHC (32.2-35.5) g/dl RDW Std Deviation (36.4-46.3) fL Plt Count (182-369) K/mm3 MPV (9.4-12.3) fl Neut % (Auto) (34.0-71.1) % Lymph % (Auto) (19.3-51.7) % [place] % (Auto) (4.7-12.5) % Eos % (Auto) (0.7-5.8) Baso % (Auto) (0.1-1.2) % Neut # (Auto) (1.56-6.13) K/mm3 Lymph # (Auto) (1.18-3.74) K/mm3 [place] # (Auto) (0.24-0.36) K/mm3 Eos # (Auto) (0.04-0.36) K/mm3 Baso # (Auto) (0.01-0.08) K/mm3 Manual Slide Review Sodium 145 (136-145) mEq/L Potassium 3.8 (3.5-5.1) mEq/L Chloride 105 (98-107) mEq/L Carbon Dioxide 32 (21-32) mEq/L Anion Gap 11.8 (5-15) BUN 39 H (7-18) mg/dL Creatinine 1.3 H (0.55-1.02) mg/dL Est Cr Clr Drug Dosing 25.20 mL/min Estimated GFR (MDRD) 40 (>60) mL/min BUN/Creatinine Ratio 30.0 H (14-18) Glucose 104 (83-115) mg/dL POC Glucose 111 H (83-110) mg/dL Calcium 8.8 (8.5-10.1) mg/dL Magnesium 1.9 (1.8-2.4) mg/dl C-Reactive Protein 6.0 H* (<1.0) mg/dL Vancomycin Trough (10.0-20.0) Valerio Results Last 24 Hours: Microbiology 10/31/20 11:22 Aerobic Blood Culture - Preliminary Blood - Venous - Lab Draw NO GROWTH AFTER 2 DAYS Anaerobic Blood Culture - Preliminary NO GROWTH AFTER 2 DAYS 10/31/20 11:10 Aerobic Blood Culture - Preliminary Blood - Venous NO GROWTH AFTER 2 DAYS Anaerobic Blood Culture - Preliminary NO GROWTH AFTER 2 DAYS 10/31/20 10:26 Gram Stain - Final Foot, Right Anaerobic Culture - Preliminary Staphylococcus Aureus Beta Streptococcus Group B Med Orders - Current: Current Medications Acetaminophen (Tylenol) 650 mg PO Q4H PRN PRN Reason: Pain (Mild 1-3)/fever Diltiazem HCl (Dilacor Xr) 240 mg PO DAILY [facility] Last Admin: 11/03/20 09:15 Dose: 240 mg Documented by: Ezetimibe (Zetia) 10 mg PO DAILY [facility] Last Admin: 11/03/20 09:16 Dose: 10 mg Documented by: Enoxaparin Sodium (Lovenox) 120 mg SUBCUT Q24H [facility] Last Admin: 11/02/20 21:22 Dose: 120 mg Documented by: Famotidine (Pepcid) 20 mg PO BEDTIME [facility] Last Admin: 11/02/20 21:15 Dose: 20 mg Documented by: Furosemide (Lasix) 40 mg PO BIDDIURETIC [facility] Last Admin: 11/03/20 06:47 Dose: 40 mg Documented by: Hydroxychloroquine Sulfate (Plaquenil) 200 mg PO DAILY [facility] Last Admin: 11/03/20 09:16 Dose: 200 mg Documented by: Vancomycin HCl 1 gm/ Sodium (Chloride) 250 mls @ 250 mls/hr IV Q24H [facility] Last Admin: 11/02/20 18:18 Dose: 250 mls/hr Documented by: Cefepime HCl 2 gm/ Premix 50 mls @ 100 mls/hr IV Q24H [facility] Last Admin: 11/02/20 16:24 Dose: 100 mls/hr Documented by: Insulin Glargine (Lantus) 20 unit SUBCUT BID [facility] Last Admin: 11/03/20 09:17 Dose: 20 units Documented by: Insulin Human Lispro (Humalog) 0 unit SUBCUT QIDACANDBED [facility]; Protocol Last Admin: 11/03/20 07:43 Dose: Not Given Documented by: Insulin Human Lispro (Humalog) 5 unit SUBCUT TIDAC [facility] Last Admin: 11/02/20 18:21 Dose: 5 units Documented by: Lisinopril (Prinivil) 20 mg PO DAILY [facility] Last Admin: 11/03/20 09:15 Dose: 20 mg Documented by: Lorazepam (Ativan) 0.5 mg PO QID PRN PRN Reason: Anxiety Last Admin: 11/02/20 21:15 Dose: 0.5 mg Documented by: Magnesium Oxide (Magnesium Oxide) 200 mg PO DAILY [facility] Last Admin: 11/03/20 09:17 Dose: 200 mg Documented by: Metoprolol Tartrate (Lopressor) 50 mg PO BID [facility] Last Admin: 11/03/20 09:16 Dose: 50 mg Documented by: Leflunomide 20mg Tab (Own Med) 20 mg PO BEDTIME [facility] Last Admin: 11/02/20 21:26 Dose: 20 mg Documented by: Ondansetron HCl (Zofran) 4 mg IV Q4H PRN PRN Reason: Nausea/Vomiting Last Admin: 11/02/20 16:43 Dose: 4 mg Documented by: Prednisone (Prednisone) 5 mg PO DAILY [facility] Last Admin: 11/03/20 09:16 Dose: 5 mg Documented by: Saccharomyces Boulardii (Florastor) 250 mg PO BID [facility] Last Admin: 11/03/20 09:16 Dose: 250 mg Documented by: Simvastatin (Zocor) 20 mg PO DAILY [facility] Last Admin: 11/03/20 09:15 Dose: 20 mg Documented by: Sodium Chloride (Saline Flush) 10 ml FLUSH ASDIRECTED PRN PRN Reason: Keep Vein Open Last Admin: 10/31/20 11:42 Dose: 10 ml Documented by: Vancomycin HCl (Pharmacy To Dose - Vancomycin) 1 dose .XX ASDIRECTED PRN PRN Reason: RX TO DOSE VANCO Discontinued Medications Apixaban (Eliquis) 5 mg PO BID [facility] Last Admin: 10/31/20 20:19 Dose: 5 mg Documented by: Apixaban (Eliquis) 5 mg PO BID [facility] Last Admin: 11/01/20 09:06 Dose: 5 mg Documented by: Enoxaparin Sodium (Lovenox) 120 mg SUBCUT BEDTIME [facility] Stop: 11/01/20 21:01 Last Admin: 11/01/20 21:21 Dose: 120 mg Documented by: Famotidine (Pepcid) 20 mg PO BID [facility] Last Admin: 10/31/20 20:19 Dose: 20 mg Documented by: Ceftriaxone Sodium 2 gm/ (Sodium Chloride) 100 mls @ 200 mls/hr IV STAT ONE Stop: 10/31/20 10:56 Last Admin: 10/31/20 10:41 Dose: Not Given Documented by: Ceftriaxone Sodium 2 gm/ (Sodium Chloride) 100 mls @ 200 mls/hr IV ONETIME ONE Stop: 10/31/20 11:03 Last Admin: 10/31/20 11:42 Dose: 200 mls/hr Documented by: Cefepime HCl 2 gm/ Premix 50 mls @ 100 mls/hr IV ONETIME ONE Stop: 10/31/20 16:46 Last Admin: 10/31/20 17:23 Dose: 100 mls/hr Documented by: Insulin Glargine (Lantus) 20 unit SUBCUT BID [facility] Last Admin: 11/02/20 08:04 Dose: 20 units Documented by: Insulin Glargine (Lantus) 20 unit SUBCUT BID [facility] Magnesium Hydroxide (Milk Of Magnesia) 30 ml PO ONETIME ONE Stop: 11/03/20 09:01 Last Admin: 11/03/20 09:16 Dose: 30 ml Documented by: Metoprolol Tartrate (Lopressor) 50 mg PO BID [facility] Last Admin: 10/31/20 20:20 Dose: 50 mg Documented by: Prednisone (Prednisone) 5 mg PO DAILY [facility] Last Admin: 11/02/20 08:07 Dose: 5 mg Documented by: - Exam Quality Assessment: Supplemental Oxygen (2L ), DVT Prophylaxis General: Alert, Oriented, Cooperative, No Acute Distress HEENT: Pupils Equal, Pupils Reactive, Mucous Membr. Moist/[place] Neck: Supple, Trachea Midline Lungs: Clear to Auscultation, Normal Respiratory Effort, Decreased Breath Sounds Cardiovascular: Regular Rate, Regular Rhythm GI/Abdominal Exam: Normal Bowel Sounds, Soft, Non-Tender, No Distention (Female) Exam: Deferred Extremities: Non-Tender, No Pedal Edema, Other (Small non-draining ulcer on ventral aspect of left foot. Larger ulcer on base of right foot with purulent drainage. ) Skin: Warm, Dry, Intact Neurological: No New Focal Deficit Psy/Mental Status: Alert, Normal Affect, Normal Mood Sepsis Event Note - Evaluation Sepsis Screening Result: No Definite Risk - Focused Exam Vital Signs: Vital Signs Temp Pulse Resp BP Pulse Ox 11/03/20 09:16 106 H 130/88 11/03/20 09:15 130/88 11/03/20 05:52 97.7 F 85 20 135/96 H 98 11/03/20 00:16 97.9 F 71 18 123/72 100 11/02/20 21:20 91 127/87 99 - Problem List & Annotations (1) Diabetic foot ulcer SNOMED Code(s): 653168914 Code(s): E11.621 - TYPE 2 DIABETES MELLITUS WITH FOOT ULCER; L97.509 - NON- PRESSURE CHRONIC ULCER OTH PRT UNSP FOOT W UNSP SEVERITY Status: Acute Priority: High Current Visit: Yes Qualifiers: Diabetic foot ulcer location: midfoot Diabetes mellitus type: type 2 Laterality: right Non-pressure ulcer stage: unspecified non-pressure ulcer stage Qualified Code(s): E11.621 - Type 2 diabetes mellitus with foot ulcer; L97.419 - Non-pressure chronic ulcer of right heel and midfoot with unspecified severity (2) Diabetic nephropathy Status: Chronic Priority: Medium Current Visit: Yes Qualifiers: Diabetes mellitus type: type 2 Qualified Code(s): E11.21 - Type 2 diabetes mellitus with diabetic nephropathy (3) Atrial fibrillation SNOMED Code(s): 90956472 Code(s): I48.91 - UNSPECIFIED ATRIAL FIBRILLATION Status: Chronic Priority: Medium Current Visit: No Qualifiers: Atrial fibrillation type: unspecified Qualified Code(s): I48.91 - Unspecified atrial fibrillation (4) Aortic stenosis SNOMED Code(s): 95488666 Code(s): I35.0 - NONRHEUMATIC AORTIC (VALVE) STENOSIS Status: Chronic Priority: Low Current Visit: No Qualifiers: Cardiac valve disease etiology: etiology unspecified Qualified Code(s): I35.0 - Nonrheumatic aortic (valve) stenosis (5) Cor pulmonale, chronic SNOMED Code(s): 88499534 Code(s): I27.81 - COR PULMONALE (CHRONIC) Status: Chronic Priority: Medium Current Visit: No (6) Supplemental oxygen dependent SNOMED Code(s): 255647191489 Code(s): Z99.81 - DEPENDENCE ON SUPPLEMENTAL OXYGEN Status: Chronic Priority: Medium Current Visit: No Onset Date: ~09/02/20 (7) Chronic renal insufficiency, stage III (moderate) SNOMED Code(s): 222534386 Code(s): N18.30 - CHRONIC KIDNEY DISEASE, STAGE 3 UNSPECIFIED Status: Chronic Priority: Medium Current Visit: No Onset Date: ~09/02/20 (8) Diabetes mellitus type 2 in obese SNOMED Code(s): 30480017 Code(s): E11.69 - TYPE 2 DIABETES MELLITUS WITH OTHER SPECIFIED COMPLICATION; E66.9 - OBESITY, UNSPECIFIED Status: Chronic Priority: Medium Current Visit: No Onset Date: ~09/02/20 (9) LEILANI on CPAP SNOMED Code(s): 74286311 Code(s): G47.33 - OBSTRUCTIVE SLEEP APNEA (ADULT) (PEDIATRIC); Z99.89 - DEPENDENCE ON OTHER ENABLING MACHINES AND DEVICES Status: Chronic Priority: Medium Current Visit: No Onset Date: ~09/02/20 Annotation/Comment:: compliant with cpap (10) Osteomyelitis SNOMED Code(s): 01684268 Code(s): M86.9 - OSTEOMYELITIS, UNSPECIFIED Status: Acute Priority: High Current Visit: Yes Qualifiers: Osteomyelitis type: unspecified type Osteomyelitis location: foot Laterality: right Qualified Code(s): M86.9 - Osteomyelitis, unspecified - Problem List Review Problem List Initiated/Reviewed/Updated: Yes - My Orders Last 24 Hours: My Active Orders 11/02/20 10:57 Consult to Occupational Therapy [OT Evaluation and Treatment] [CONS] Routine PT Evaluation and Treatment [CONS] Routine 11/02/20 10:58 Consult to Physical Therapy [PT Evaluation and Treatment] [CONS] Routine 11/04/20 05:11 BASIC METABOLIC PANEL,BMP [CHEM] AM CBC WITH AUTO DIFF [HEME] AM CRP [C-REACTIVE PROTEIN] [CHEM] AM MAGNESIUM [CHEM] AM 11/05/20 05:11 BASIC METABOLIC PANEL,BMP [CHEM] AM CBC WITH AUTO DIFF [HEME] AM CRP [C-REACTIVE PROTEIN] [CHEM] AM MAGNESIUM [CHEM] AM 11/06/20 05:11 BASIC METABOLIC PANEL,BMP [CHEM] AM CBC WITH AUTO DIFF [HEME] AM CRP [C-REACTIVE PROTEIN] [CHEM] AM MAGNESIUM [CHEM] AM - Plan Plan:: Assessment 10/31/2020 80-year-old female with diabetic peripheral neuropathy presents to the emergency department with worsening of her chronic right plantar ulcer and development of possible left plantar ulcer. * Nonhealing diabetic foot ulcer * Patient discharged on October 21 on Augmentin. * She is followed by lawn technician Dr. Pemberton * Systemic symptoms including fever, chills, hypoglycemia and nausea. 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 Plan * Admit to medical floor * Start vancomycin and cefepime * Cultures done in the emergency department of both wound and blood * Nursing for wound care * Contact Dr. Pemberton on Monday * Follow CBC, CMP, C-reactive protein * Decrease Lantus to 20 units twice daily and increase as necessary. * Humalog 5 units with each meal and add sliding scale * Switch Eliquis to Lovenox * CODE STATUS: DNR/DNI * VTE prophylaxis with Lovenox * Consider further imaging of foot. Only plain films have been performed so far. 11/01/2020 80-year-old female with diabetic foot ulcer bilaterally right worse than left. Systemic symptoms have improved greatly on vancomycin and cefepime. Foot cultures are growing out gram-positive cocci probably staph aureus and beta Streptococcus group B. Vancomycin is appropriate for both at this time. We will continue both antibiotics low. Blood sugars have been in the low to mid 200s. At this time we will not change the insulin dose, Lantus 20 units twice daily, Humalog 5 units with each meal, medium sliding scale insulin. White count has decreased to 7.52 but C-reactive protein did increase to 14.4. Renal function has not changed with a creatinine of 1.4 and estimated GFR 36. She does exhibit worsening thrombocytopenia with platelets of 149. Otherwise she is having her typical chronic steady state. Plan: Continue with cefepime and vancomycin. Await recommendations by Dr. Pemberton in the morning. Continue to monitor blood sugars 4 times daily and make adjustments as necessary. Consider imaging of foot based on recommendations by Dr. Pemberton. I irrigated and debrided the wound with Betadine, forceps, and sterile cotton swabs today. 11/02/2020 80-year-old female admitted due to bilateral diabetic foot ulcers with right significantly worse than left. At this time she reports pain is essentially gone. Blood cultures remain negative and wound culture is growing out beta Streptococcus group B and MSSA. WBC remains within normal limits at 5.71. Hemoglobin is up to 9.2. Sodium is 146. Creatinine is improved to 1.3 and BUN is improved to 42. This is resulting in a GFR 40. Blood sugars have been between 305 and 115. CRP is improved to 10.3. Protein is down to 5.9 and albumin is very low at 2.1. Nursing has had continuing difficulty with IV access as patient is morbidly obese with a BMI of 52.9. Anesthesia was con tacted again to restart patient's IV after it went bad today. Patient will likely need long-term antibiotics and decision was made to place a PICC line. Patient will be sent to MRI to rule out osteomyelitis of the foot. Will attempt to contact Dr. Pemberton today as patient has been following him in the past. Otherwise patient remains clinically stable. We will continue current treatment plan. 11/03/2020 40-year-old female with draining diabetic foot ulcer on right and nondraining ulcer on left. MRI of the right foot was obtained on 11/02/[address] Flores, radiologist, as: "1. Edema within the phalanx of the second toe presumably due to osteomyelitis. 2. Edema within the base of the third and fourth metatarsals which is less specific for osteomyelitis and may relate to degenerative change. 3. Minimal bone marrow edema within the base of the proximal phalanx of the great toe likely degenerative. 4. Diffuse soft tissue edema." White count remains within normal limits at 5.21. Patient continues to receive cefepime and vancomycin IV. Patient has had very difficult IV access with 2 prior peripheral IVs requiring anesthesia to place. Patient is morbidly obese and given concerns for IV access along with need for continued IV antibiotics decision was made to place PICC line on 11/02/2020. Otherwise hemoglobin is up to 9.5. Sodium 145. Potassium 3.8. Creatinine remained stable at 1.3 which appears better than the patient's baseline. CRP is improved to 6.0. Contacted Dr. Pemberton, lawn technician, with [facility] here in [place] son whom the patient sees to discuss plan of care and see if you would be interested in seeing the patient and possibly performing surgery. He reports this is likely not possible logistically and the patient would be better served by being transferred to [place]. Given the patient's significant cardiac and renal history it is also likely that she would not be cleared for surgery here by anesthesia. Contacted [facility] 1 call and they report they are currently boarding patients in the emergency room but should have beds available this afternoon or evening. Dr. Storey, lawn technician reviewed patient's images and also reviewed images with radiologist to ensure there is no abscess or immediate concerns. They requested photos to be sent of the patient's feet to Dr. Storey. Went in to discuss plan with patient. Photos of ventral aspect of left foot, dorsal aspect of right foot, and 2 photos of ventral aspect right foot were obtained. Photos were reviewed by patient and patient's daughter in room to ensure no identifiable features were noted on photos. Photos were then sent to Dr. Storey. Discussed need for transfer and options of transferring to another facility with patient. This included risks and benefits of staying here. Patient ultimately decided to stay until a bed is available as all of her physicians are [place] doctors. [facility] will contact us when a bed is available and we will arrange transfer then. Otherwise patient will continue to remain in our care with continued IV antibiotics. PT wound care is available today to assess patient's feet as she will likely need debridement of her left foot as well. <Paramjit Ziegler - Last Filed: 11/03/20 12:37> - Patient Data Vitals - Most Recent: Last Vital Signs Temp 36.9 C 11/03/20 12:03 Pulse 95 11/03/20 12:03 Resp 24 H 11/03/20 12:03 BP 125/68 11/03/20 12:03 Pulse Ox 98 11/03/20 12:03 I&O - Last 24 Hours: Intake & Output 11/02/20 11/03/20 11/03/20 22:59 06:59 14:59 Intake Total 1490 500 320 Output Total 1500 1350 Balance -10 -850 320 Lab Results Last 24 Hours: Laboratory Results - last 24 hr 11/02/20 11/02/20 11/02/20 Range/Units 12:12 17:18 17:26 WBC (3.98-10.04) K/mm3 RBC (3.98-5.22) M/mm3 Hgb (11.2-15.7) gm/dl Hct (34.1-44.9) % MCV (79.4-94.8) fl MCH (25.6-32.2) pg MCHC (32.2-35.5) g/dl RDW Std Deviation (36.4-46.3) fL Plt Count (182-369) K/mm3 MPV (9.4-12.3) fl Neut % (Auto) (34.0-71.1) % Lymph % (Auto) (19.3-51.7) % [place] % (Auto) (4.7-12.5) % Eos % (Auto) (0.7-5.8) Baso % (Auto) (0.1-1.2) % Neut # (Auto) (1.56-6.13) K/mm3 Lymph # (Auto) (1.18-3.74) K/mm3 [place] # (Auto) (0.24-0.36) K/mm3 Eos # (Auto) (0.04-0.36) K/mm3 Baso # (Auto) (0.01-0.08) K/mm3 Manual Slide Review Sodium (136-145) mEq/L Potassium (3.5-5.1) mEq/L Chloride (98-107) mEq/L Carbon Dioxide (21-32) mEq/L Anion Gap (5-15) BUN (7-18) mg/dL Creatinine (0.55-1.02) mg/dL Est Cr Clr Drug Dosing mL/min Estimated GFR (MDRD) (>60) mL/min BUN/Creatinine Ratio (14-18) Glucose (83-115) mg/dL POC Glucose 136 H 157 H (83-110) mg/dL Calcium (8.5-10.1) mg/dL Magnesium (1.8-2.4) mg/dl C-Reactive Protein (<1.0) mg/dL Vancomycin Trough 9.9 L (10.0-20.0) 11/02/20 11/03/20 11/03/20 Range/Units 21:03 05:55 06:21 WBC 5.21 (3.98-10.04) K/mm3 RBC 3.37 L (3.98-5.22) M/mm3 Hgb 9.5 L (11.2-15.7) gm/dl Hct 32.1 L (34.1-44.9) % MCV 95.3 H (79.4-94.8) fl MCH 28.2 (25.6-32.2) pg MCHC 29.6 L (32.2-35.5) g/dl RDW Std Deviation 50.3 H (36.4-46.3) fL Plt Count 187 (182-369) K/mm3 MPV 10.6 (9.4-12.3) fl Neut % (Auto) 62.7 (34.0-71.1) % Lymph % (Auto) 19.6 (19.3-51.7) % [place] % (Auto) 13.6 H (4.7-12.5) % Eos % (Auto) 3.5 (0.7-5.8) Baso % (Auto) 0.4 (0.1-1.2) % Neut # (Auto) 3.27 (1.56-6.13) K/mm3 Lymph # (Auto) 1.02 L (1.18-3.74) K/mm3 [place] # (Auto) 0.71 H (0.24-0.36) K/mm3 Eos # (Auto) 0.18 (0.04-0.36) K/mm3 Baso # (Auto) 0.02 (0.01-0.08) K/mm3 Manual Slide Review Abnormal smear Sodium (136-145) mEq/L Potassium (3.5-5.1) mEq/L Chloride (98-107) mEq/L Carbon Dioxide (21-32) mEq/L Anion Gap (5-15) BUN (7-18) mg/dL Creatinine (0.55-1.02) mg/dL Est Cr Clr Drug Dosing mL/min Estimated GFR (MDRD) (>60) mL/min BUN/Creatinine Ratio (14-18) Glucose (83-115) mg/dL POC Glucose 204 H 79 L (83-110) mg/dL Calcium (8.5-10.1) mg/dL Magnesium (1.8-2.4) mg/dl C-Reactive Protein (<1.0) mg/dL Vancomycin Trough (10.0-20.0) 11/03/20 11/03/20 11/03/20 Range/Units 06:21 06:21 11:31 WBC (3.98-10.04) K/mm3 RBC (3.98-5.22) M/mm3 Hgb (11.2-15.7) gm/dl Hct (34.1-44.9) % MCV (79.4-94.8) fl MCH (25.6-32.2) pg MCHC (32.2-35.5) g/dl RDW Std Deviation (36.4-46.3) fL Plt Count (182-369) K/mm3 MPV (9.4-12.3) fl Neut % (Auto) (34.0-71.1) % Lymph % (Auto) (19.3-51.7) % [place] % (Auto) (4.7-12.5) % Eos % (Auto) (0.7-5.8) Baso % (Auto) (0.1-1.2) % Neut # (Auto) (1.56-6.13) K/mm3 Lymph # (Auto) (1.18-3.74) K/mm3 [place] # (Auto) (0.24-0.36) K/mm3 Eos # (Auto) (0.04-0.36) K/mm3 Baso # (Auto) (0.01-0.08) K/mm3 Manual Slide Review Sodium 145 (136-145) mEq/L Potassium 3.8 (3.5-5.1) mEq/L Chloride 105 (98-107) mEq/L Carbon Dioxide 32 (21-32) mEq/L Anion Gap 11.8 (5-15) BUN 39 H (7-18) mg/dL Creatinine 1.3 H (0.55-1.02) mg/dL Est Cr Clr Drug Dosing 25.20 mL/min Estimated GFR (MDRD) 40 (>60) mL/min BUN/Creatinine Ratio 30.0 H (14-18) Glucose 104 (83-115) mg/dL POC Glucose 111 H 178 H (83-110) mg/dL Calcium 8.8 (8.5-10.1) mg/dL Magnesium 1.9 (1.8-2.4) mg/dl C-Reactive Protein 6.0 H* (<1.0) mg/dL Vancomycin Trough (10.0-20.0) Valerio Results Last 24 Hours: Microbiology 10/31/20 11:22 Aerobic Blood Culture - Preliminary Blood - Venous - Lab Draw NO GROWTH AFTER 3 DAYS Anaerobic Blood Culture - Preliminary NO GROWTH AFTER 3 DAYS 10/31/20 11:10 Aerobic Blood Culture - Preliminary Blood - Venous NO GROWTH AFTER 3 DAYS Anaerobic Blood Culture - Preliminary NO GROWTH AFTER 3 DAYS 10/31/20 10:26 Gram Stain - Final Foot, Right Anaerobic Culture - Preliminary Staphylococcus Aureus Beta Streptococcus Group B Med Orders - Current: Current Medications Acetaminophen (Tylenol) 650 mg PO Q4H PRN PRN Reason: Pain (Mild 1-3)/fever Diltiazem HCl (Dilacor Xr) 240 mg PO DAILY [facility] Last Admin: 11/03/20 09:15 Dose: 240 mg Documented by: Ezetimibe (Zetia) 10 mg PO DAILY [facility] Last Admin: 11/03/20 09:16 Dose: 10 mg Documented by: Enoxaparin Sodium (Lovenox) 120 mg SUBCUT Q24H [facility] Last Admin: 11/02/20 21:22 Dose: 120 mg Documented by: Famotidine (Pepcid) 20 mg PO BEDTIME [facility] Last Admin: 11/02/20 21:15 Dose: 20 mg Documented by: Furosemide (Lasix) 40 mg PO BIDDIURETIC [facility] Last Admin: 11/03/20 06:47 Dose: 40 mg Documented by: Hydroxychloroquine Sulfate (Plaquenil) 200 mg PO DAILY [facility] Last Admin: 11/03/20 09:16 Dose: 200 mg Documented by: Vancomycin HCl 1 gm/ Sodium (Chloride) 250 mls @ 250 mls/hr IV Q24H [facility] Last Admin: 11/02/20 18:18 Dose: 250 mls/hr Documented by: Cefepime HCl 2 gm/ Premix 50 mls @ 100 mls/hr IV Q24H [facility] Last Admin: 11/02/20 16:24 Dose: 100 mls/hr Documented by: Insulin Glargine (Lantus) 20 unit SUBCUT BID [facility] Last Admin: 11/03/20 09:17 Dose: 20 units Documented by: Insulin Human Lispro (Humalog) 0 unit SUBCUT QIDACANDBED [facility]; Protocol Last Admin: 11/03/20 12:19 Dose: 2 unit Documented by: Insulin Human Lispro (Humalog) 5 unit SUBCUT TIDAC [facility] Last Admin: 11/03/20 12:19 Dose: 5 units Documented by: Lisinopril (Prinivil) 20 mg PO DAILY [facility] Last Admin: 11/03/20 09:15 Dose: 20 mg Documented by: Lorazepam (Ativan) 0.5 mg PO QID PRN PRN Reason: Anxiety Last Admin: 11/02/20 21:15 Dose: 0.5 mg Documented by: Magnesium Oxide (Magnesium Oxide) 200 mg PO DAILY [facility] Last Admin: 11/03/20 09:17 Dose: 200 mg Documented by: Metoprolol Tartrate (Lopressor) 50 mg PO BID [facility] Last Admin: 11/03/20 09:16 Dose: 50 mg Documented by: Leflunomide 20mg Tab (Own Med) 20 mg PO BEDTIME [facility] Last Admin: 11/02/20 21:26 Dose: 20 mg Documented by: Ondansetron HCl (Zofran) 4 mg IV Q4H PRN PRN Reason: Nausea/Vomiting Last Admin: 11/02/20 16:43 Dose: 4 mg Documented by: Prednisone (Prednisone) 5 mg PO DAILY [facility] Last Admin: 11/03/20 09:16 Dose: 5 mg Documented by: Saccharomyces Boulardii (Florastor) 250 mg PO BID [facility] Last Admin: 11/03/20 09:16 Dose: 250 mg Documented by: Simvastatin (Zocor) 20 mg PO DAILY [facility] Last Admin: 11/03/20 09:15 Dose: 20 mg Documented by: Sodium Chloride (Saline Flush) 10 ml FLUSH ASDIRECTED PRN PRN Reason: Keep Vein Open Last Admin: 10/31/20 11:42 Dose: 10 ml Documented by: Vancomycin HCl (Pharmacy To Dose - Vancomycin) 1 dose .XX ASDIRECTED PRN PRN Reason: RX TO DOSE VANCO Discontinued Medications Apixaban (Eliquis) 5 mg PO BID [facility] Last Admin: 10/31/20 20:19 Dose: 5 mg Documented by: Apixaban (Eliquis) 5 mg PO BID [facility] Last Admin: 11/01/20 09:06 Dose: 5 mg Documented by: Enoxaparin Sodium (Lovenox) 120 mg SUBCUT BEDTIME [facility] Stop: 11/01/20 21:01 Last Admin: 11/01/20 21:21 Dose: 120 mg Documented by: Famotidine (Pepcid) 20 mg PO BID [facility] Last Admin: 10/31/20 20:19 Dose: 20 mg Documented by: Ceftriaxone Sodium 2 gm/ (Sodium Chloride) 100 mls @ 200 mls/hr IV STAT ONE Stop: 10/31/20 10:56 Last Admin: 10/31/20 10:41 Dose: Not Given Documented by: Ceftriaxone Sodium 2 gm/ (Sodium Chloride) 100 mls @ 200 mls/hr IV ONETIME ONE Stop: 10/31/20 11:03 Last Admin: 10/31/20 11:42 Dose: 200 mls/hr Documented by: Cefepime HCl 2 gm/ Premix 50 mls @ 100 mls/hr IV ONETIME ONE Stop: 10/31/20 16:46 Last Admin: 10/31/20 17:23 Dose: 100 mls/hr Documented by: Insulin Glargine (Lantus) 20 unit SUBCUT BID [facility] Last Admin: 11/02/20 08:04 Dose: 20 units Documented by: Insulin Glargine (Lantus) 20 unit SUBCUT BID [facility] Magnesium Hydroxide (Milk Of Magnesia) 30 ml PO ONETIME ONE Stop: 11/03/20 09:01 Last Admin: 11/03/20 09:16 Dose: 30 ml Documented by: Metoprolol Tartrate (Lopressor) 50 mg PO BID [facility] Last Admin: 10/31/20 20:20 Dose: 50 mg Documented by: Prednisone (Prednisone) 5 mg PO DAILY [facility] Last Admin: 11/02/20 08:07 Dose: 5 mg Documented by: Sepsis Event Note - Focused Exam Vital Signs: Vital Signs Temp Pulse Resp BP Pulse Ox 11/03/20 12:03 36.9 C 95 24 H 125/68 98 11/03/20 09:16 106 H 130/88 11/03/20 09:15 130/88 11/03/20 09:13 36.7 C 106 H 20 130/88 95 11/03/20 05:52 36.5 C 85 20 135/96 H 98 - My Orders Last 24 Hours: My Active Orders 11/03/20 06:15 Blood Glucose Check, Bedside [RC] ONETIME - Plan Plan:: I have seen and examined the patient independently of Domenic Barrett PA-C. I have reviewed the orders and agree with the plan of care as outlined by him. I have discussed the case with him. Please see orders.
[2020-11-03 12:14] VITALS: BP 125/68; PULSE 95
--- NOTE | 2020-11-03 12:46 | PCM.DCSUM1 ---
<Domenic Barrett - Last Filed: 11/03/20 12:46> Discharge Summary - Hospital Course HPI Initial Comments: 80-year-old female with multiple medical problems including atrial fibrillation, heart failure, [place]/NSTEMI, pulmonary hypertension, peripheral vascular disease, aortic stenosis, cor pulmonale, LEILANI, rheumatoid arthritis, insulin-dependent diabetes who was discharged on 10/21/2020 from this hospital after a CHF exacerbation and diabetic foot ulcer presents back to the emergency department. Patient was discharged on Augmentin and doing well until Monday, October 26, 2020. Patient states that overnight her foot became red, sore, and swollen. Patient has very little feeling in her feet from peripheral neuropathy. She states that she had fever, chills, nausea, and hypoglycemia. The eschar on the palm of her foot fell off and the ulcer has worsened. She is followed by Dr. Pemberton in podiatry. She is on 2 L of oxygen via nasal cannula at rest and she has 6 L bled into her BiPAP at night. During hospitalization 2 weeks ago she was on Zosyn. Patient was given 2 g Rocephin in the emergency department. Blood cultures were drawn previous. White count was 13.03, hemoglobin 9.8, platelet count of 180, INR 1.18, lactic acid 1.1, GFR 33, CRP 6.5. Chest x-ray showed nothing acute. Patient was transferred to the floor for IV antibiotics and possible consult of Dr. Pemberton on Monday. Diagnosis: Stroke: No - Discharge Data Discharge Date: 11/03/20 (Admit date: 10/31/20) Discharge Disposition: DC/Tfer to Acute Hospital 02 Condition: Stable - Referral to Home Health Primary Care Physician: Abraham Ramirez MD - Discharge Diagnosis/Problem(s) (1) Diabetic foot ulcer SNOMED Code(s): 416370087 ICD Code: E11.621 - TYPE 2 DIABETES MELLITUS WITH FOOT ULCER; L97.509 - NON- PRESSURE CHRONIC ULCER OTH PRT UNSP FOOT W UNSP SEVERITY Status: Acute Priority: High Current Visit: Yes Qualifiers: Diabetic foot ulcer location: midfoot Diabetes mellitus type: type 2 Laterality: right Non-pressure ulcer stage: unspecified non-pressure ulcer stage Qualified Code(s): E11.621 - Type 2 diabetes mellitus with foot ulcer; L97.419 - Non-pressure chronic ulcer of right heel and midfoot with unspecified severity (2) Diabetic nephropathy Status: Chronic Priority: Medium Current Visit: Yes Qualifiers: Diabetes mellitus type: type 2 Qualified Code(s): E11.21 - Type 2 diabetes mellitus with diabetic nephropathy (3) Atrial fibrillation SNOMED Code(s): 20722419 ICD Code: I48.91 - UNSPECIFIED ATRIAL FIBRILLATION Status: Chronic Priority: Medium Current Visit: No Qualifiers: Atrial fibrillation type: unspecified Qualified Code(s): I48.91 - Unspecified atrial fibrillation (4) Aortic stenosis SNOMED Code(s): 23493274 ICD Code: I35.0 - NONRHEUMATIC AORTIC (VALVE) STENOSIS Status: Chronic Priority: Low Current Visit: No Qualifiers: Cardiac valve disease etiology: etiology unspecified Qualified Code(s): I35.0 - Nonrheumatic aortic (valve) stenosis (5) Cor pulmonale, chronic SNOMED Code(s): 20169723 ICD Code: I27.81 - COR PULMONALE (CHRONIC) Status: Chronic Priority: Medium Current Visit: No (6) Supplemental oxygen dependent SNOMED Code(s): 817660956007 ICD Code: Z99.81 - DEPENDENCE ON SUPPLEMENTAL OXYGEN Status: Chronic Priority: Medium Current Visit: No Onset Date: ~09/02/20 (7) Chronic renal insufficiency, stage III (moderate) SNOMED Code(s): 231585921 ICD Code: N18.30 - CHRONIC KIDNEY DISEASE, STAGE 3 UNSPECIFIED Status: Chronic Priority: Medium Current Visit: No Onset Date: ~09/02/20 (8) Diabetes mellitus type 2 in obese SNOMED Code(s): 21394536 ICD Code: E11.69 - TYPE 2 DIABETES MELLITUS WITH OTHER SPECIFIED COMPLICATION; E66.9 - OBESITY, UNSPECIFIED Status: Chronic Priority: Medium Current Visit: No Onset Date: ~09/02/20 (9) LEILANI on CPAP SNOMED Code(s): 84413561 ICD Code: G47.33 - OBSTRUCTIVE SLEEP APNEA (ADULT) (PEDIATRIC); Z99.89 - DEPENDENCE ON OTHER ENABLING MACHINES AND DEVICES Status: Chronic Priority: Medium Current Visit: No Onset Date: ~09/02/20 Problem Details: compliant with cpap (10) Osteomyelitis SNOMED Code(s): 04178385 ICD Code: M86.9 - OSTEOMYELITIS, UNSPECIFIED Status: Acute Priority: High Current Visit: Yes Qualifiers: Osteomyelitis type: unspecified type Osteomyelitis location: foot Laterality: right Qualified Code(s): M86.9 - Osteomyelitis, unspecified - Patient Summary/Data Consults: Consultations 11/02/20 10:57 Consult to Occupational Therapy [OT Evaluation and Treatment] [CONS] Routine PT Evaluation and Treatment [CONS] Routine 11/02/20 10:58 Consult to Physical Therapy [PT Evaluation and Treatment] [CONS] Routine Labs Pending at D/C: Blood cultures negative after 3 days Hospital Course: Bandar was admitted to the hospital for diabetic foot ulcer on her ventral aspect of her right foot with purulent drainage. On admission she was also noted to have an early ulcer on her left foot which was not draining. She was started on cefepime and vancomycin. She has a longstanding history of diabetic foot ulcers and does follow Dr. Pemberton, sand sifter at [facility] in [place]. On admission she was noted to be be nauseous and reports having had fevers. This resolved during her stay. WBC and CRP did trend down. As noted she does have multiple comorbidities including significant heart and kidney disease. Admitting physician did debride right ulcer on admission. Unfortunately MRI imaging was unavailable until the evening of 11/02/2020. At that time MRI was obtained and interpreted by Dr. Moss, blogs manager, as "1. Edema within the phalanx of the second toe presumably due to osteomyelitis. 2. Edema within the base of the third and fourth metatarsals which is less specific for osteomyelitis and may relate to degenerative change. 3. Minimal bone marrow edema within the base of the proximal phalanx of the great toe likely degenerative. 4. Diffuse soft tissue edema." Initially contacted patient's sand sifter, Dr. Pemberton, at [facility] in [place] [facility] to discuss the patient. He reports that he is unavailable for surgery and the patient would likely be better served in [place]. Then contacted [facility] one call and discuss plan with Dr. Storey, podiatry who reviewed imaging with their radiologist and agrees patient will need surgery but that it is nonemergent. Unfortunately, [facility] had no beds available in the morning. Discussed risks and benefits this with the patient and she reports that she does not want to go anywhere else other than [facility], as all of her physicians are there. Dr. Storey requests pictures of the patient's feet and both patient and her daughter agree to this. Four total pictures are sent to Dr. Storey and pictures were reviewed with daughter and patient prior to sending to ensure there is no identifiable characteristics in any of the photos. This afternoon (11/03/2020) [facility] one call reports they do have bed openings and are willing to take the patient. Report given to Dr. Cole, hospitalist and she also accepts the patient for transfer. Patient transferred to [facility] via ground ambulance. - Discharge Plan *PRESCRIPTION DRUG MONITORING PROGRAM REVIEWED*: No *COPY OF PRESCRIPTION DRUG MONITORING REPORT IN PATIENT MARY ALICE: No Home Medications: Home Meds Magnesium 250 mg PO DAILY 05/07/14 [History] Furosemide [Lasix] 40 mg PO BID 03/08/16 [History] Dextrose [Glucose] 4 gm PO DAILY PRN 04/21/17 [History] Fish Oil/[place]-3 Fatty Acids [Fish Oil 1,000 MG] 1 cap PO DAILY 04/21/17 [History] Insulin Aspart [Novolog Flexpen] 1 unit SQ TID 04/21/17 [History] Lisinopril 20 mg PO DAILY 04/21/17 [History] Multivit,Calc,Mins/Iron/Folic [Thera-M] 1 each PO DAILY 04/21/17 [History] Ezetimibe [Zetia] 10 mg PO DAILY 05/09/18 [History] Omeprazole Magnesium [Prilosec Otc] 20 mg PO DAILY 05/09/18 [History] Pravastatin [Pravachol] 40 mg PO DAILY 05/09/18 [History] Ubidecarenone [Coq-10] 1 tab PO DAILY 05/09/18 [History] Leflunomide [Arava] 20 mg PO BEDTIME 05/30/19 [History] Metoprolol Tartrate [Lopressor] 50 mg PO BID 05/30/19 [History] Triamcinolone Acetonide [Triamcinolone Acetonide 0.1% Crm] 1 dose TOP BID PRN 05/30/19 [History] Hydroxychloroquine [Plaquenil] 200 mg PO DAILY 09/02/20 [History] Apixaban [Eliquis] 5 mg PO BID #60 tablet 09/04/20 [Rx] Acetaminophen [Tylenol] 325 mg PO Q6H PRN 10/16/20 [History] Ferrous Gluconate [Fergon] 2 tab PO DAILY 10/16/20 [History] LORazepam [Ativan] 0.5 mg PO QID PRN 10/16/20 [History] predniSONE [Prednisone] 5 mg PO DAILY 10/16/20 [History] Diltiazem [Dilacor XR] 240 mg PO DAILY #30 cap.er 10/21/20 [Rx] Insulin Glargine,Hum.Rec.Anlog [Basaglar Kwikpen U-100] 20 units SUBCUT BID #0 10/21/20 [Rx] Saccharomyces Boulardii [Florastor] 250 mg PO BID #9 cap 10/21/20 [Rx] Oxygen Therapy Mode: Nasal Cannula Oxygen Flow Rate (L/min): 2 Patient Handouts: Diabetes Mellitus and Foot Care, Heart Failure, Self Care, Scru-rc-Very, Home Oxygen Use, Adult, Living With Heart Failure Forms: ED Department Discharge Referrals: Abraham Ramirez MD [Primary Care Provider] - - Discharge Summary/Plan Comment DC Time >30 min.: Yes (60 minutes ) - General Info Date of Service: 11/03/20 Admission Dx/Problem (Free Text: Admission Diagnosis/Problem Admission Diagnosis/Problem Diabetic foot ulcer Functional Status: Reports: Pain Controlled, Tolerating Diet, Urinating. Denies: Ambulating, New Symptoms - Review of Systems General: Reports: No Symptoms. Denies: Fever, Weakness, Fatigue, Malaise, Chills HEENT: Reports: No Symptoms. Denies: Headaches, Sore Throat Pulmonary: Reports: Shortness of Breath (chronic and at baseline ). Denies: Cough, Sputum, Wheezing Cardiovascular: Reports: Dyspnea on Exertion (chronic and at baseline ). Denies: Chest Pain, Palpitations, Edema Gastrointestinal: Reports: No Symptoms. Denies: Abdominal Pain, Constipation, Diarrhea, Nausea, Vomiting Genitourinary: Reports: No Symptoms. Denies: Pain Musculoskeletal: Reports: No Symptoms Skin: Reports: No Symptoms. Denies: Cyanosis Neurological: Reports: No Symptoms, Difficulty Walking, Gait Disturbance. Denies: Confusion, Dizziness, Headache, Numbness, Pre-Existing Deficit, Tingling, Trouble Speaking Psychiatric: Reports: No Symptoms - Patient Data Vitals - Most Recent: Last Vital Signs Temp 98.4 F 11/03/20 12:03 Pulse 95 11/03/20 12:03 Resp 24 H 11/03/20 12:03 BP 125/68 11/03/20 12:03 Pulse Ox 98 11/03/20 12:03 Weight - Most Recent: 121.517 kg I&O - Last 24 hours: Intake & Output 11/02/20 11/03/20 11/03/20 22:59 06:59 14:59 Intake Total 1490 500 320 Output Total 1500 1350 Balance -10 -850 320 Lab Results - Last 24 hrs: Laboratory Results - last 24 hr 11/02/20 11/02/20 11/02/20 Range/Units 12:12 17:18 17:26 WBC (3.98-10.04) K/mm3 RBC (3.98-5.22) M/mm3 Hgb (11.2-15.7) gm/dl Hct (34.1-44.9) % MCV (79.4-94.8) fl MCH (25.6-32.2) pg MCHC (32.2-35.5) g/dl RDW Std Deviation (36.4-46.3) fL Plt Count (182-369) K/mm3 MPV (9.4-12.3) fl Neut % (Auto) (34.0-71.1) % Lymph % (Auto) (19.3-51.7) % [place] % (Auto) (4.7-12.5) % Eos % (Auto) (0.7-5.8) Baso % (Auto) (0.1-1.2) % Neut # (Auto) (1.56-6.13) K/mm3 Lymph # (Auto) (1.18-3.74) K/mm3 [place] # (Auto) (0.24-0.36) K/mm3 Eos # (Auto) (0.04-0.36) K/mm3 Baso # (Auto) (0.01-0.08) K/mm3 Manual Slide Review Sodium (136-145) mEq/L Potassium (3.5-5.1) mEq/L Chloride (98-107) mEq/L Carbon Dioxide (21-32) mEq/L Anion Gap (5-15) BUN (7-18) mg/dL Creatinine (0.55-1.02) mg/dL Est Cr Clr Drug Dosing mL/min Estimated GFR (MDRD) (>60) mL/min BUN/Creatinine Ratio (14-18) Glucose (83-115) mg/dL POC Glucose 136 H 157 H (83-110) mg/dL Calcium (8.5-10.1) mg/dL Magnesium (1.8-2.4) mg/dl C-Reactive Protein (<1.0) mg/dL Vancomycin Trough 9.9 L (10.0-20.0) 11/02/20 11/03/20 11/03/20 Range/Units 21:03 05:55 06:21 WBC 5.21 (3.98-10.04) K/mm3 RBC 3.37 L (3.98-5.22) M/mm3 Hgb 9.5 L (11.2-15.7) gm/dl Hct 32.1 L (34.1-44.9) % MCV 95.3 H (79.4-94.8) fl MCH 28.2 (25.6-32.2) pg MCHC 29.6 L (32.2-35.5) g/dl RDW Std Deviation 50.3 H (36.4-46.3) fL Plt Count 187 (182-369) K/mm3 MPV 10.6 (9.4-12.3) fl Neut % (Auto) 62.7 (34.0-71.1) % Lymph % (Auto) 19.6 (19.3-51.7) % [place] % (Auto) 13.6 H (4.7-12.5) % Eos % (Auto) 3.5 (0.7-5.8) Baso % (Auto) 0.4 (0.1-1.2) % Neut # (Auto) 3.27 (1.56-6.13) K/mm3 Lymph # (Auto) 1.02 L (1.18-3.74) K/mm3 [place] # (Auto) 0.71 H (0.24-0.36) K/mm3 Eos # (Auto) 0.18 (0.04-0.36) K/mm3 Baso # (Auto) 0.02 (0.01-0.08) K/mm3 Manual Slide Review Abnormal smear Sodium (136-145) mEq/L Potassium (3.5-5.1) mEq/L Chloride (98-107) mEq/L Carbon Dioxide (21-32) mEq/L Anion Gap (5-15) BUN (7-18) mg/dL Creatinine (0.55-1.02) mg/dL Est Cr Clr Drug Dosing mL/min Estimated GFR (MDRD) (>60) mL/min BUN/Creatinine Ratio (14-18) Glucose (83-115) mg/dL POC Glucose 204 H 79 L (83-110) mg/dL Calcium (8.5-10.1) mg/dL Magnesium (1.8-2.4) mg/dl C-Reactive Protein (<1.0) mg/dL Vancomycin Trough (10.0-20.0) 11/03/20 11/03/20 11/03/20 Range/Units 06:21 06:21 11:31 WBC (3.98-10.04) K/mm3 RBC (3.98-5.22) M/mm3 Hgb (11.2-15.7) gm/dl Hct (34.1-44.9) % MCV (79.4-94.8) fl MCH (25.6-32.2) pg MCHC (32.2-35.5) g/dl RDW Std Deviation (36.4-46.3) fL Plt Count (182-369) K/mm3 MPV (9.4-12.3) fl Neut % (Auto) (34.0-71.1) % Lymph % (Auto) (19.3-51.7) % [place] % (Auto) (4.7-12.5) % Eos % (Auto) (0.7-5.8) Baso % (Auto) (0.1-1.2) % Neut # (Auto) (1.56-6.13) K/mm3 Lymph # (Auto) (1.18-3.74) K/mm3 [place] # (Auto) (0.24-0.36) K/mm3 Eos # (Auto) (0.04-0.36) K/mm3 Baso # (Auto) (0.01-0.08) K/mm3 Manual Slide Review Sodium 145 (136-145) mEq/L Potassium 3.8 (3.5-5.1) mEq/L Chloride 105 (98-107) mEq/L Carbon Dioxide 32 (21-32) mEq/L Anion Gap 11.8 (5-15) BUN 39 H (7-18) mg/dL Creatinine 1.3 H (0.55-1.02) mg/dL Est Cr Clr Drug Dosing 25.20 mL/min Estimated GFR (MDRD) 40 (>60) mL/min BUN/Creatinine Ratio 30.0 H (14-18) Glucose 104 (83-115) mg/dL POC Glucose 111 H 178 H (83-110) mg/dL Calcium 8.8 (8.5-10.1) mg/dL Magnesium 1.9 (1.8-2.4) mg/dl C-Reactive Protein 6.0 H* (<1.0) mg/dL Vancomycin Trough (10.0-20.0) RICHARD Results - Last 24 hrs: Microbiology 10/31/20 11:22 Aerobic Blood Culture - Preliminary Blood - Venous - Lab Draw NO GROWTH AFTER 3 DAYS Anaerobic Blood Culture - Preliminary NO GROWTH AFTER 3 DAYS 10/31/20 11:10 Aerobic Blood Culture - Preliminary Blood - Venous NO GROWTH AFTER 3 DAYS Anaerobic Blood Culture - Preliminary NO GROWTH AFTER 3 DAYS 10/31/20 10:26 Gram Stain - Final Foot, Right Anaerobic Culture - Preliminary Staphylococcus Aureus Beta Streptococcus Group B Med Orders - Current: Current Medications Acetaminophen (Tylenol) 650 mg PO Q4H PRN PRN Reason: Pain (Mild 1-3)/fever Diltiazem HCl (Dilacor Xr) 240 mg PO DAILY [facility] Last Admin: 11/03/20 09:15 Dose: 240 mg Documented by: Ezetimibe (Zetia) 10 mg PO DAILY [facility] Last Admin: 11/03/20 09:16 Dose: 10 mg Documented by: Enoxaparin Sodium (Lovenox) 120 mg SUBCUT Q24H [facility] Last Admin: 11/02/20 21:22 Dose: 120 mg Documented by: Famotidine (Pepcid) 20 mg PO BEDTIME [facility] Last Admin: 11/02/20 21:15 Dose: 20 mg Documented by: Furosemide (Lasix) 40 mg PO BIDDIURETIC [facility] Last Admin: 11/03/20 06:47 Dose: 40 mg Documented by: Hydroxychloroquine Sulfate (Plaquenil) 200 mg PO DAILY [facility] Last Admin: 11/03/20 09:16 Dose: 200 mg Documented by: Vancomycin HCl 1 gm/ Sodium (Chloride) 250 mls @ 250 mls/hr IV Q24H [facility] Last Admin: 11/02/20 18:18 Dose: 250 mls/hr Documented by: Cefepime HCl 2 gm/ Premix 50 mls @ 100 mls/hr IV Q24H [facility] Last Admin: 11/02/20 16:24 Dose: 100 mls/hr Documented by: Insulin Glargine (Lantus) 20 unit SUBCUT BID [facility] Last Admin: 11/03/20 09:17 Dose: 20 units Documented by: Insulin Human Lispro (Humalog) 0 unit SUBCUT QIDACANDBED [facility]; Protocol Last Admin: 11/03/20 12:19 Dose: 2 unit Documented by: Insulin Human Lispro (Humalog) 5 unit SUBCUT TIDAC [facility] Last Admin: 11/03/20 12:19 Dose: 5 units Documented by: Lisinopril (Prinivil) 20 mg PO DAILY [facility] Last Admin: 11/03/20 09:15 Dose: 20 mg Documented by: Lorazepam (Ativan) 0.5 mg PO QID PRN PRN Reason: Anxiety Last Admin: 11/02/20 21:15 Dose: 0.5 mg Documented by: Magnesium Oxide (Magnesium Oxide) 200 mg PO DAILY [facility] Last Admin: 11/03/20 09:17 Dose: 200 mg Documented by: Metoprolol Tartrate (Lopressor) 50 mg PO BID [facility] Last Admin: 11/03/20 09:16 Dose: 50 mg Documented by: Leflunomide 20mg Tab (Own Med) 20 mg PO BEDTIME [facility] Last Admin: 11/02/20 21:26 Dose: 20 mg Documented by: Ondansetron HCl (Zofran) 4 mg IV Q4H PRN PRN Reason: Nausea/Vomiting Last Admin: 11/02/20 16:43 Dose: 4 mg Documented by: Prednisone (Prednisone) 5 mg PO DAILY [facility] Last Admin: 11/03/20 09:16 Dose: 5 mg Documented by: Saccharomyces Boulardii (Florastor) 250 mg PO BID [facility] Last Admin: 11/03/20 09:16 Dose: 250 mg Documented by: Simvastatin (Zocor) 20 mg PO DAILY [facility] Last Admin: 11/03/20 09:15 Dose: 20 mg Documented by: Sodium Chloride (Saline Flush) 10 ml FLUSH ASDIRECTED PRN PRN Reason: Keep Vein Open Last Admin: 10/31/20 11:42 Dose: 10 ml Documented by: Vancomycin HCl (Pharmacy To Dose - Vancomycin) 1 dose .XX ASDIRECTED PRN PRN Reason: RX TO DOSE VANCO Discontinued Medications Apixaban (Eliquis) 5 mg PO BID [facility] Last Admin: 10/31/20 20:19 Dose: 5 mg Documented by: Apixaban (Eliquis) 5 mg PO BID [facility] Last Admin: 11/01/20 09:06 Dose: 5 mg Documented by: Enoxaparin Sodium (Lovenox) 120 mg SUBCUT BEDTIME [facility] Stop: 11/01/20 21:01 Last Admin: 11/01/20 21:21 Dose: 120 mg Documented by: Famotidine (Pepcid) 20 mg PO BID [facility] Last Admin: 10/31/20 20:19 Dose: 20 mg Documented by: Ceftriaxone Sodium 2 gm/ (Sodium Chloride) 100 mls @ 200 mls/hr IV STAT ONE Stop: 10/31/20 10:56 Last Admin: 10/31/20 10:41 Dose: Not Given Documented by: Ceftriaxone Sodium 2 gm/ (Sodium Chloride) 100 mls @ 200 mls/hr IV ONETIME ONE Stop: 10/31/20 11:03 Last Admin: 10/31/20 11:42 Dose: 200 mls/hr Documented by: Cefepime HCl 2 gm/ Premix 50 mls @ 100 mls/hr IV ONETIME ONE Stop: 10/31/20 16:46 Last Admin: 10/31/20 17:23 Dose: 100 mls/hr Documented by: Insulin Glargine (Lantus) 20 unit SUBCUT BID [facility] Last Admin: 11/02/20 08:04 Dose: 20 units Documented by: Insulin Glargine (Lantus) 20 unit SUBCUT BID [facility] Magnesium Hydroxide (Milk Of Magnesia) 30 ml PO ONETIME ONE Stop: 11/03/20 09:01 Last Admin: 11/03/20 09:16 Dose: 30 ml Documented by: Metoprolol Tartrate (Lopressor) 50 mg PO BID [facility] Last Admin: 10/31/20 20:20 Dose: 50 mg Documented by: Prednisone (Prednisone) 5 mg PO DAILY [facility] Last Admin: 11/02/20 08:07 Dose: 5 mg Documented by: - Exam Quality Assessment: Reports: Supplemental Oxygen (2L ), DVT Prophylaxis. Denies: Urine Catheter General: Reports: Alert, Oriented, Cooperative, No Acute Distress HEENT: Reports: Pupils Equal, Pupils Reactive, Mucous Membr. Moist/[place] Neck: Reports: Supple, Trachea Midline Lungs: Reports: Clear to Auscultation, Normal Respiratory Effort, Decreased Breath Sounds Cardiovascular: Reports: Regular Rate, Regular Rhythm GI/Abdominal Exam: Normal Bowel Sounds, Soft, Non-Tender, No Distention (Female) Exam: Deferred Rectal (Female) Exam: Normal Exam, Normal Rectal Tone Back Exam: Reports: Normal Inspection, Decreased Range of Motion Extremities: Non-Tender (Bilateral diabetic neuropathy), No Pedal Edema, Normal Capillary Refill, Other (Small closed nondraining early ulcer on ventral aspect of left foot. Large ulcer draining purulent material on ventral aspect of right foot.) Skin: Reports: Warm, Dry, Intact Wound/Incisions: Reports: No Drainage (left ), Drainage (right ), Erythema Improving Neurological: Reports: No New Focal Deficit Psy/Mental Status: Reports: Alert, Normal Affect, Normal Mood <Paramjit Ziegler - Last Filed: 11/03/20 13:26> Discharge Summary - Referral to Home Health Primary Care Physician: Abraham Ramirez MD - Patient Summary/Data Consults: Consultations 11/02/20 10:57 Consult to Occupational Therapy [OT Evaluation and Treatment] [CONS] Routine PT Evaluation and Treatment [CONS] Routine 11/02/20 10:58 Consult to Physical Therapy [PT Evaluation and Treatment] [CONS] Routine Hospital Course: I have seen and examined the patient independently of Domenic Barrett PA-C. I have reviewed the orders and agree with the plan of care as outlined by him. I have discussed the case with him. Please see orders. - Patient Data Vitals - Most Recent: Last Vital Signs Temp 36.9 C 11/03/20 12:03 Pulse 95 11/03/20 12:03 Resp 24 H 11/03/20 12:03 BP 125/68 11/03/20 12:03 Pulse Ox 98 11/03/20 12:03 I&O - Last 24 hours: Intake & Output 11/02/20 11/03/20 11/03/20 22:59 06:59 14:59 Intake Total 1490 500 320 Output Total 1500 1350 Balance -10 -850 320 Lab Results - Last 24 hrs: Laboratory Results - last 24 hr 11/02/20 11/02/20 11/02/20 Range/Units 12:12 17:18 17:26 WBC (3.98-10.04) K/mm3 RBC (3.98-5.22) M/mm3 Hgb (11.2-15.7) gm/dl Hct (34.1-44.9) % MCV (79.4-94.8) fl MCH (25.6-32.2) pg MCHC (32.2-35.5) g/dl RDW Std Deviation (36.4-46.3) fL Plt Count (182-369) K/mm3 MPV (9.4-12.3) fl Neut % (Auto) (34.0-71.1) % Lymph % (Auto) (19.3-51.7) % [place] % (Auto) (4.7-12.5) % Eos % (Auto) (0.7-5.8) Baso % (Auto) (0.1-1.2) % Neut # (Auto) (1.56-6.13) K/mm3 Lymph # (Auto) (1.18-3.74) K/mm3 [place] # (Auto) (0.24-0.36) K/mm3 Eos # (Auto) (0.04-0.36) K/mm3 Baso # (Auto) (0.01-0.08) K/mm3 Manual Slide Review Sodium (136-145) mEq/L Potassium (3.5-5.1) mEq/L Chloride (98-107) mEq/L Carbon Dioxide (21-32) mEq/L Anion Gap (5-15) BUN (7-18) mg/dL Creatinine (0.55-1.02) mg/dL Est Cr Clr Drug Dosing mL/min Estimated GFR (MDRD) (>60) mL/min BUN/Creatinine Ratio (14-18) Glucose (83-115) mg/dL POC Glucose 136 H 157 H (83-110) mg/dL Calcium (8.5-10.1) mg/dL Magnesium (1.8-2.4) mg/dl C-Reactive Protein (<1.0) mg/dL Vancomycin Trough 9.9 L (10.0-20.0) 11/02/20 11/03/20 11/03/20 Range/Units 21:03 05:55 06:21 WBC 5.21 (3.98-10.04) K/mm3 RBC 3.37 L (3.98-5.22) M/mm3 Hgb 9.5 L (11.2-15.7) gm/dl Hct 32.1 L (34.1-44.9) % MCV 95.3 H (79.4-94.8) fl MCH 28.2 (25.6-32.2) pg MCHC 29.6 L (32.2-35.5) g/dl RDW Std Deviation 50.3 H (36.4-46.3) fL Plt Count 187 (182-369) K/mm3 MPV 10.6 (9.4-12.3) fl Neut % (Auto) 62.7 (34.0-71.1) % Lymph % (Auto) 19.6 (19.3-51.7) % [place] % (Auto) 13.6 H (4.7-12.5) % Eos % (Auto) 3.5 (0.7-5.8) Baso % (Auto) 0.4 (0.1-1.2) % Neut # (Auto) 3.27 (1.56-6.13) K/mm3 Lymph # (Auto) 1.02 L (1.18-3.74) K/mm3 [place] # (Auto) 0.71 H (0.24-0.36) K/mm3 Eos # (Auto) 0.18 (0.04-0.36) K/mm3 Baso # (Auto) 0.02 (0.01-0.08) K/mm3 Manual Slide Review Abnormal smear Sodium (136-145) mEq/L Potassium (3.5-5.1) mEq/L Chloride (98-107) mEq/L Carbon Dioxide (21-32) mEq/L Anion Gap (5-15) BUN (7-18) mg/dL Creatinine (0.55-1.02) mg/dL Est Cr Clr Drug Dosing mL/min Estimated GFR (MDRD) (>60) mL/min BUN/Creatinine Ratio (14-18) Glucose (83-115) mg/dL POC Glucose 204 H 79 L (83-110) mg/dL Calcium (8.5-10.1) mg/dL Magnesium (1.8-2.4) mg/dl C-Reactive Protein (<1.0) mg/dL Vancomycin Trough (10.0-20.0) 11/03/20 11/03/20 11/03/20 Range/Units 06:21 06:21 11:31 WBC (3.98-10.04) K/mm3 RBC (3.98-5.22) M/mm3 Hgb (11.2-15.7) gm/dl Hct (34.1-44.9) % MCV (79.4-94.8) fl MCH (25.6-32.2) pg MCHC (32.2-35.5) g/dl RDW Std Deviation (36.4-46.3) fL Plt Count (182-369) K/mm3 MPV (9.4-12.3) fl Neut % (Auto) (34.0-71.1) % Lymph % (Auto) (19.3-51.7) % [place] % (Auto) (4.7-12.5) % Eos % (Auto) (0.7-5.8) Baso % (Auto) (0.1-1.2) % Neut # (Auto) (1.56-6.13) K/mm3 Lymph # (Auto) (1.18-3.74) K/mm3 [place] # (Auto) (0.24-0.36) K/mm3 Eos # (Auto) (0.04-0.36) K/mm3 Baso # (Auto) (0.01-0.08) K/mm3 Manual Slide Review Sodium 145 (136-145) mEq/L Potassium 3.8 (3.5-5.1) mEq/L Chloride 105 (98-107) mEq/L Carbon Dioxide 32 (21-32) mEq/L Anion Gap 11.8 (5-15) BUN 39 H (7-18) mg/dL Creatinine 1.3 H (0.55-1.02) mg/dL Est Cr Clr Drug Dosing 25.20 mL/min Estimated GFR (MDRD) 40 (>60) mL/min BUN/Creatinine Ratio 30.0 H (14-18) Glucose 104 (83-115) mg/dL POC Glucose 111 H 178 H (83-110) mg/dL Calcium 8.8 (8.5-10.1) mg/dL Magnesium 1.9 (1.8-2.4) mg/dl C-Reactive Protein 6.0 H* (<1.0) mg/dL Vancomycin Trough (10.0-20.0) RICHARD Results - Last 24 hrs: Microbiology 10/31/20 11:22 Aerobic Blood Culture - Preliminary Blood - Venous - Lab Draw NO GROWTH AFTER 3 DAYS Anaerobic Blood Culture - Preliminary NO GROWTH AFTER 3 DAYS 10/31/20 11:10 Aerobic Blood Culture - Preliminary Blood - Venous NO GROWTH AFTER 3 DAYS Anaerobic Blood Culture - Preliminary NO GROWTH AFTER 3 DAYS 10/31/20 10:26 Gram Stain - Final Foot, Right Anaerobic Culture - Preliminary Staphylococcus Aureus Beta Streptococcus Group B Med Orders - Current: Current Medications Acetaminophen (Tylenol) 650 mg PO Q4H PRN PRN Reason: Pain (Mild 1-3)/fever Diltiazem HCl (Dilacor Xr) 240 mg PO DAILY [facility] Last Admin: 11/03/20 09:15 Dose: 240 mg Documented by: Ezetimibe (Zetia) 10 mg PO DAILY [facility] Last Admin: 11/03/20 09:16 Dose: 10 mg Documented by: Enoxaparin Sodium (Lovenox) 120 mg SUBCUT Q24H [facility] Last Admin: 11/02/20 21:22 Dose: 120 mg Documented by: Famotidine (Pepcid) 20 mg PO BEDTIME [facility] Last Admin: 11/02/20 21:15 Dose: 20 mg Documented by: Furosemide (Lasix) 40 mg PO BIDDIURETIC [facility] Last Admin: 11/03/20 06:47 Dose: 40 mg Documented by: Hydroxychloroquine Sulfate (Plaquenil) 200 mg PO DAILY [facility] Last Admin: 11/03/20 09:16 Dose: 200 mg Documented by: Vancomycin HCl 1 gm/ Sodium (Chloride) 250 mls @ 250 mls/hr IV Q24H [facility] Last Admin: 11/02/20 18:18 Dose: 250 mls/hr Documented by: Cefepime HCl 2 gm/ Premix 50 mls @ 100 mls/hr IV Q24H [facility] Last Admin: 11/02/20 16:24 Dose: 100 mls/hr Documented by: Insulin Glargine (Lantus) 20 unit SUBCUT BID [facility] Last Admin: 11/03/20 09:17 Dose: 20 units Documented by: Insulin Human Lispro (Humalog) 0 unit SUBCUT QIDACANDBED [facility]; Protocol Last Admin: 11/03/20 12:19 Dose: 2 unit Documented by: Insulin Human Lispro (Humalog) 5 unit SUBCUT TIDAC [facility] Last Admin: 11/03/20 12:19 Dose: 5 units Documented by: Lisinopril (Prinivil) 20 mg PO DAILY [facility] Last Admin: 11/03/20 09:15 Dose: 20 mg Documented by: Lorazepam (Ativan) 0.5 mg PO QID PRN PRN Reason: Anxiety Last Admin: 11/02/20 21:15 Dose: 0.5 mg Documented by: Magnesium Oxide (Magnesium Oxide) 200 mg PO DAILY [facility] Last Admin: 11/03/20 09:17 Dose: 200 mg Documented by: Metoprolol Tartrate (Lopressor) 50 mg PO BID [facility] Last Admin: 11/03/20 09:16 Dose: 50 mg Documented by: Leflunomide 20mg Tab (Own Med) 20 mg PO BEDTIME [facility] Last Admin: 11/02/20 21:26 Dose: 20 mg Documented by: Ondansetron HCl (Zofran) 4 mg IV Q4H PRN PRN Reason: Nausea/Vomiting Last Admin: 11/03/20 13:18 Dose: 4 mg Documented by: Prednisone (Prednisone) 5 mg PO DAILY [facility] Last Admin: 11/03/20 09:16 Dose: 5 mg Documented by: Saccharomyces Boulardii (Florastor) 250 mg PO BID [facility] Last Admin: 11/03/20 09:16 Dose: 250 mg Documented by: Simvastatin (Zocor) 20 mg PO DAILY [facility] Last Admin: 11/03/20 09:15 Dose: 20 mg Documented by: Sodium Chloride (Saline Flush) 10 ml FLUSH ASDIRECTED PRN PRN Reason: Keep Vein Open Last Admin: 10/31/20 11:42 Dose: 10 ml Documented by: Vancomycin HCl (Pharmacy To Dose - Vancomycin) 1 dose .XX ASDIRECTED PRN PRN Reason: RX TO DOSE VANCO Discontinued Medications Apixaban (Eliquis) 5 mg PO BID [facility] Last Admin: 10/31/20 20:19 Dose: 5 mg Documented by: Apixaban (Eliquis) 5 mg PO BID [facility] Last Admin: 11/01/20 09:06 Dose: 5 mg Documented by: Enoxaparin Sodium (Lovenox) 120 mg SUBCUT BEDTIME [facility] Stop: 11/01/20 21:01 Last Admin: 11/01/20 21:21 Dose: 120 mg Documented by: Famotidine (Pepcid) 20 mg PO BID [facility] Last Admin: 10/31/20 20:19 Dose: 20 mg Documented by: Ceftriaxone Sodium 2 gm/ (Sodium Chloride) 100 mls @ 200 mls/hr IV STAT ONE Stop: 10/31/20 10:56 Last Admin: 10/31/20 10:41 Dose: Not Given Documented by: Ceftriaxone Sodium 2 gm/ (Sodium Chloride) 100 mls @ 200 mls/hr IV ONETIME ONE Stop: 10/31/20 11:03 Last Admin: 10/31/20 11:42 Dose: 200 mls/hr Documented by: Cefepime HCl 2 gm/ Premix 50 mls @ 100 mls/hr IV ONETIME ONE Stop: 10/31/20 16:46 Last Admin: 10/31/20 17:23 Dose: 100 mls/hr Documented by: Insulin Glargine (Lantus) 20 unit SUBCUT BID [facility] Last Admin: 11/02/20 08:04 Dose: 20 units Documented by: Insulin Glargine (Lantus) 20 unit SUBCUT BID [facility] Magnesium Hydroxide (Milk Of Magnesia) 30 ml PO ONETIME ONE Stop: 11/03/20 09:01 Last Admin: 11/03/20 09:16 Dose: 30 ml Documented by: Metoprolol Tartrate (Lopressor) 50 mg PO BID [facility] Last Admin: 10/31/20 20:20 Dose: 50 mg Documented by: Prednisone (Prednisone) 5 mg PO DAILY [facility] Last Admin: 11/02/20 08:07 Dose: 5 mg Documented by:
[2020-11-03] MEDS: Ondansetron 4 MG/2 ML SDV IV PRN (13:18)
== END 2020-11-03 13:20 | DRG 637 ==
LOC: JD.ED 10:09 → JD.MS 12:52
PROVIDERS: ADMIT Family Medicine; ATTEND Family Medicine
PROC: 02HV33Z Insertion of Infusion Device into Superior Vena Cava, Percutaneous Approach (ICD-10-PCS; principal; 2020-11-02)
DX: E11.621 Type 2 diabetes mellitus with foot ulcer (principal); I50.33 Acute on chronic diastolic (congestive) heart failure; N18.32 Chronic kidney disease, stage 3b; D63.1 Anemia in chronic kidney disease; L97.419 Non-pressure chronic ulcer of right heel and midfoot with unspecified severity; M86.8X7 Other osteomyelitis, ankle and foot; E78.00 Pure hypercholesterolemia, unspecified; I49.3 Ventricular premature depolarization; I13.0 Hypertensive heart and chronic kidney disease with heart failure and stage 1 through stage 4 chronic kidney disease, or unspecified chronic kidney disease; J96.11 Chronic respiratory failure with hypoxia; Z68.43 Body mass index [BMI] 50.0-59.9, adult; E11.69 Type 2 diabetes mellitus with other specified complication; E11.21 Type 2 diabetes mellitus with diabetic nephropathy; I48.91 Unspecified atrial fibrillation; I35.0 Nonrheumatic aortic (valve) stenosis; I27.81 Cor pulmonale (chronic); Z99.81 Dependence on supplemental oxygen; I50.9 Heart failure, unspecified; N18.30 Chronic kidney disease, stage 3 unspecified; Z88.6 Allergy status to analgesic agent; Z88.8 Allergy status to other drugs, medicaments and biological substances; Z79.01 Long term (current) use of anticoagulants; E11.22 Type 2 diabetes mellitus with diabetic chronic kidney disease; Z79.899 Other long term (current) drug therapy; Z79.4 Long term (current) use of insulin; G47.33 Obstructive sleep apnea (adult) (pediatric); I25.2 Old myocardial infarction; I73.9 Peripheral vascular disease, unspecified; E78.5 Hyperlipidemia, unspecified; Z90.49 Acquired absence of other specified parts of digestive tract; Z98.42 Cataract extraction status, left eye; Z98.41 Cataract extraction status, right eye; Z98.890 Other specified postprocedural states; K21.9 Gastro-esophageal reflux disease without esophagitis; K59.09 Other constipation; Z66 Do not resuscitate; E66.01 Morbid (severe) obesity due to excess calories; Z20.822 Contact with and (suspected) exposure to COVID-19; I27.20 Pulmonary hypertension, unspecified; M06.9 Rheumatoid arthritis, unspecified; E11.649 Type 2 diabetes mellitus with hypoglycemia without coma; H54.7 Unspecified visual loss; Z87.01 Personal history of pneumonia (recurrent); R32 Unspecified urinary incontinence; F41.9 Anxiety disorder, unspecified; F32.9 Major depressive disorder, single episode, unspecified; D64.9 Anemia, unspecified; Z96.653 Presence of artificial knee joint, bilateral
CPT/HCPCS: 36415; 71045; 80053; 81001; 82962; 83605; 85007; 85027; 85610; 86140; 87040 ×2; 87075; 87077 ×2; 87186 ×2; 87205; 96365; 99285; J0696; J7050; U0002; 36410; 36572; 51701; 51798; 73718-26-RT; 73718-RT; 80048; 80202; 83735; 85025; 94761; 97162-GP; 97597-GP; 99222; 99232; 99239; 99284; A9270-GY; C1751; J0692; J1650; J1815-GY; J2405; J3370; J7512

== ENCOUNTER 2020-12-29 19:22 | Emergency (ER) | payer MEDICARE, BC ==
[2020-12-29 19:29] VITALS: BP 133/68; PULSE 44
--- NOTE | 2020-12-29 20:03 | EDM.PDOC ---
ED HPI GENERAL MEDICAL PROBLEM - General Chief Complaint: Cardiovascular Problem Stated Complaint: [facility] Time Seen by Provider: 12/29/20 19:38 Source of Information: Reports: Patient, Family (Daughter) History Limitations: Reports: No Limitations - History of Present Illness INITIAL COMMENTS - FREE TEXT/NARRATIVE: Mrs. Euceda is a very pleasant 80-year-old woman with a past medical history significant for chronic atrial fibrillation, who is now brought to the ED by EMS for bradycardia. The patient states that she was just discharged from a long-term to the home of her daughter and son-in-law yesterday, and that despite her daughter taking pains to get her medications straight, she was accidentally given a dose of Lopressor this morning, which they subsequently discovered had been discontinued some time ago. The patient is also on diltiazem. The patient then started feeling lightheaded this afternoon. Her daughter tried to check her blood pressure, finding her heart rate to be in the 40s, which is low for the patient. They spoke to her home health nurse, who recommended that EMS be called. When EMS arrived, they also found the patient's heart rate to be in the 40s. They gave atropine with no change in her heart rate. Other than mild lightheadedness, the patient denies having any chest pain, nausea, blurry vision, headache, or dyspnea. Here in the ED, the patient is found to be bradycardic at 44 bpm, otherwise, she is hemodynamically stable, afebrile, saturating 94% on room air. Prior to this afternoon, the patient denies having a recent fever, chills, sore throat, ear pain, nasal or sinus congestion, cough, dyspnea, chest pain, palpitations, nausea, vomiting, constipation, diarrhea, abdominal pain, urinary symptoms, recent weight gain or weight loss, recent bloody bowel movements or black bowel movements, recent joint aches, headaches, or rashes. The patient's PCP is Dr. Abraham Ramirez. Her Public Health Sanitarian is Dr. Wei Gong. Her Paper Pattern Folder is Dr. Gary Laguna. Her Prescription Clerk is Dr. Gordon Riggs. Her Bookkeeper Receptionist is Dr. Abdiaziz Pemberton. She states that she already received an influenza vaccine this season. - Related Data Allergies Allergy/AdvReac Type Severity Reaction Status Date / Time atorvastatin Allergy Cannot Verified 12/29/20 19:29 Remember fentanyl Allergy Respiratory Verified 12/29/20 19:29 Depression hydrocodone Allergy Respiratory Verified 12/29/20 19:29 Distress oxycodone [Oxycodone] Allergy Respiratory Verified 12/29/20 19:29 Distress tramadol Allergy Respiratory Verified 12/29/20 19:29 Distress Home Meds: Home Meds Insulin Aspart [Novolog Flexpen] See Protocol SQ TID 04/21/17 [History] Ezetimibe [Zetia] 10 mg PO BEDTIME 05/09/18 [History] Omeprazole Magnesium [Prilosec Otc] 20 mg PO DAILY 05/09/18 [History] Pravastatin [Pravachol] 40 mg PO DAILY 05/09/18 [History] Apixaban [Eliquis] 5 mg PO BID #60 tablet 09/04/20 [Rx] LORazepam [Ativan] 0.5 mg PO QID PRN 10/16/20 [History] Digoxin 62.5 mcg PO DAILY 12/29/20 [History] Diltiazem HCl [Diltiazem 24Hr ER] 360 mg PO DAILY 12/29/20 [History] Insulin Glargine,Hum.Rec.Anlog [Basaglar Kwikpen U-100] 23 units SUBCUT BID 12/29/20 [History] Magnesium Oxide 400 mg PO DAILY 12/29/20 [History] Melatonin 3 mg PO BEDTIME 12/29/20 [History] Multivit-Min/FA/Lycopene/Lut [Senior Tabs] 1 each PO DAILY 12/29/20 [History] Potassium Chloride 10 meq PO DAILY 12/29/20 [History] Torsemide 20 mg PO BID 12/29/20 [History] carvediloL [Carvedilol] 25 mg PO BID 12/29/20 [History] Past Medical History HEENT History: Reports: Allergic Rhinitis, Impaired Vision (wears glasses) Cardiovascular History: Reports: Afib (chronic), Heart Failure, High Cholesterol, Hypertension, Pulmonary Hypertension (on 2L supplemental O2 continuously), PVD Respiratory History: Reports: Sleep Apnea (nightly BiPAP / + O2 6L) Gastrointestinal History: Reports: Gastritis, GERD, Hemorrhoids, PUD Genitourinary History: Reports: Chronic Renal Insuffiency, Urinary Incontinence (stress incontinence) Musculoskeletal History: Reports: Osteoarthritis, RA Psychiatric History: Reports: Anxiety, Depression Endocrine/Metabolic History: Reports: Diabetes, Type II, Obesity/BMI 30+ Other Hematologic History: takes iron - Infectious Disease History Infectious Disease History: Reports: Chicken Pox, Measles, Mumps, Rubella - Past Surgical History HEENT Surgical History: Reports: Cataract Surgery (bilateral) GI Surgical History: Reports: Appendectomy, Cholecystectomy (around 2014), Colonoscopy (x 1), EGD (x 1), ERCP Musculoskeletal Surgical History: Reports: Amputation (left great toe), Carpal Tunnel (right only), Knee Replacement (bilateral) Other Musculoskeletal Surgeries/Procedures:: Bilateral TKR, 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 ED EXAM, GENERAL - Physical Exam Exam: See Below Exam Limited By: No Limitations General Appearance: Alert, WD/WN, No Apparent Distress Eye Exam: Bilateral Eye: EOMI, Normal Inspection Ears: Normal External Exam, Hearing Grossly Normal Nose: Normal Inspection Throat/Mouth: Normal Inspection, Normal Lips, Normal Voice, No Airway Compromise Head: Atraumatic, Normocephalic Neck: Normal Inspection, Full Range of Motion Respiratory/Chest: No Respiratory Distress, Lungs Clear, Normal Breath Sounds, No Accessory Muscle Use Cardiovascular: Normal Peripheral Pulses, No Gallop, No JVD, No Murmur, No Rub, Bradycardia Peripheral Pulses: 3+: Radial (L), Radial (R) GI/Abdominal: Normal Bowel Sounds, Soft, Non-Tender, No Organomegaly, No Distention, No Abnormal Bruit, No Mass Back Exam: Normal Inspection, Full Range of Motion, NT Extremities: Normal Inspection, Normal Range of Motion, Normal Capillary Refill Neurological: Alert, Oriented, Normal Cognition, No Motor/Sensory Deficits Psychiatric: Normal Affect Skin Exam: Warm, Dry, Intact, Normal Color, No Rash #1 Interpretation EKG Date: 12/29/20 Time: 19:29 Rhythm: A-Fib Rate (Beats/Min): 37 [place]: Normal P-Wave: Absent QRS: Wide (Nonspecific intraventricular conduction delay) ST-T: Normal QT: Normal Comparison: No Change (Other than rate, no significant change from 10/16/2020) Course - Vital Signs Last Recorded V/S: Last Vital Signs Temp 36.1 C 12/29/20 19:25 Pulse 44 L 12/29/20 19:25 Resp 15 12/29/20 19:25 BP 133/68 12/29/20 19:25 Pulse Ox 94 L 12/29/20 19:25 - Orders/Labs/Meds Orders: Active Orders 24 hr Category Date Time Status EKG Documentation Completion [RC] STAT Care 12/29/20 19:45 Active Labs: Laboratory Tests 12/29/20 Range/Units 22:10 POC Glucose 269 H (83-110) mg/dL Meds: Medications Discontinued Medications Generic Name Dose Route Start Last Admin Trade Name Sherri PRN Reason Stop Dose Admin Acetaminophen 650 mg 12/29/20 23:37 12/29/20 23:44 Acetaminophen 325 Mg Tab PO 12/29/20 23:38 650 mg NOW ONE Administration Insulin Glargine 23 unit 12/30/20 22:30 Insulin Glarg,Human.Rec.Analog 100 Unit/Ml SUBCUT 12/30/20 22:31 ONETIME ONE Insulin Glargine 23 unit 12/29/20 22:30 12/29/20 22:49 Insulin Glarg,Human.Rec.Analog 100 Unit/Ml SUBCUT 12/29/20 22:31 23 unit ONETIME ONE Administration Insulin Human Lispro 6 unit 12/29/20 22:30 12/29/20 22:49 Insulin Lispro 100 Unit/Ml SUBCUT 12/29/20 22:31 6 unit ONETIME ONE Administration - Re-Assessments/Exams Free Text/Narrative Re-Assessment/Exam: 12/29/20 19:58 As above, the patient was discharged from a long-term to the home of her daughter and son-in-law yesterday, then accidentally given a dose of Lopressor this morning, even though that medicine had been discontinued sometime ago. She is currently developed some lightheadedness this afternoon, and was found to be bradycardic, which has persisted despite being given atropine by EMS. Denies having any other symptoms, and her physical exam is unremarkable. An ECG, performed at triage, demonstrates bradycardic atrial fibrillation with no ischemic changes. At this time, I am recommending no further evaluation, other than time. With a history of chronic renal insufficiency, if we were to check labs, we would undoubtably find some abnormality, but it would not necessarily indicate anything that needed to be addressed. The Lopressor will eventually wear off and the patient's heart rate should return to normal, however, it may not be until sometime tomorrow before it does. 12/30/20 06:05 The patient has had an uneventful night. Her heart rate is now consistently around 60 bpm. Departure - Departure Time of Disposition: 06:06 Disposition: Home, Self-Care 01 Condition: Good Clinical Impression: Bradycardia, drug induced, Chronic atrial fibrillation Referrals: Abraham Ramirez MD [Primary Care Provider] - Gordon Riggs MD [Ordering Only Provider] - Wei Gong MD [Ordering Only Provider] - Abdiaziz Pemberton II DPM [Physician] - Gary Laguna MD [Ordering Only Provider] - Forms: ED Department Discharge Additional Instructions: You were seen in the emergency room after developing bradycardia (a slow heart rate) after accidentally being given a dose of Lopressor, a medication that slows the heart rate. You were observed overnight in the ER, to allow the Lopressor to wear off, and your heart rate julia to an average of about 60 bpm. You may resume your usual medications as prescribed. If any other problems, please do not hesitate to return to the ER. Sepsis Event Note (ED) - Evaluation Sepsis Screening Result: No Definite Risk - Focused Exam Vital Signs: Vital Signs Temp Pulse Resp BP Pulse Ox 12/29/20 19:25 36.1 C 44 L 15 133/68 94 L - My Orders Last 24 Hours: My Active Orders 12/29/20 19:45 EKG Documentation Completion [RC] STAT - Assessment/Plan Last 24 Hours: My Active Orders 12/29/20 19:45 EKG Documentation Completion [RC] STAT
[2020-12-29] MEDS: Insulin Glarg,Human.Rec.Analog 100 Unit/ML SUBCUT ONE (22:49)
[2020-12-29] MEDS: Acetaminophen 325 MG Tab PO ONE (23:44)
[2020-12-30] MEDS ORDERED: Insulin Glarg,Human.Rec.Analog 100 Unit/ML SUBCUT ONE (22:30)
== END 2020-12-30 06:33 | disposition home or self-care (01) ==
LOC: JD.ED 19:22
DX: I48.20 Chronic atrial fibrillation, unspecified (principal); R00.1 Bradycardia, unspecified; T44.7X5A Adverse effect of beta-adrenoreceptor antagonists, initial encounter; I13.0 Hypertensive heart and chronic kidney disease with heart failure and stage 1 through stage 4 chronic kidney disease, or unspecified chronic kidney disease; E11.22 Type 2 diabetes mellitus with diabetic chronic kidney disease; N18.9 Chronic kidney disease, unspecified; I50.9 Heart failure, unspecified; E78.00 Pure hypercholesterolemia, unspecified; K21.9 Gastro-esophageal reflux disease without esophagitis; E66.9 Obesity, unspecified; Z68.43 Body mass index [BMI] 50.0-59.9, adult; Z88.8 Allergy status to other drugs, medicaments and biological substances; Z88.5 Allergy status to narcotic agent; Z79.4 Long term (current) use of insulin; Z79.01 Long term (current) use of anticoagulants; Z79.899 Other long term (current) drug therapy
CPT/HCPCS: 82962; 93005; 93010; 99284; 99284-25; A9270-GY; J1815-GY

== ENCOUNTER 2021-04-08 18:42 | Inpatient (IN) | payer MEDICARE, BC ==
[2021-04-08] MEDS ORDERED: Sodium Chloride 0.9% 10 ML Syringe FLUSH PRN (19:21)
[2021-04-08] MEDS ORDERED: Morphine 2 MG/ML SYRINGE IVPUSH ONE ×2 (19:28→20:37)
--- NOTE | 2021-04-08 19:31 | EDM.PDOC ---
ED HPI GENERAL MEDICAL PROBLEM - General Chief Complaint: Chest Pain Stated Complaint: CHEST PAINS Time Seen by Provider: 04/08/21 18:46 Source of Information: Reports: Patient, Family History Limitations: Reports: No Limitations - History of Present Illness INITIAL COMMENTS - FREE TEXT/NARRATIVE: Patient is a 80-year-old female who presents with chest pain which she describes as pleuritic in nature pain worse with a deep breath that started upon awakening from a nap at 2 PM today. She denies any exertional component to this denies being short of breath more than her baseline from COPD or nauseous or diaphoretic. Patient is on Eliquis for chronic atrial fib denies any bloody or tarry stools or any hematemesis. She states her pain is 7 out of 10 intensity does radiate to her back is again worse when she takes deep breath. She feels the pain under both her breasts anteriorly. She describes as more of an achy and denies any sharp stabbing or pressure-like component to her pain. She denies ever having anything like this before and felt this was similar to her GERD and did take her antiacid medicine with some Tylenol earlier. Pain is not intensified in severity or changed its presentation since onset 5 hours ago. Onset: Today Duration: Hour(s): (5 hours), Constant Location: Reports: Chest, Back Quality: Reports: Ache. Denies: Burning, Pressure, Stabbing Improves with: Reports: None Worsens with: Reports: Breathing Associated Symptoms: Reports: No Other Symptoms. Denies: Cough, cough w sputum, Shortness of Breath, Weakness Treatments MENTAL HEALTH CLINICIAN: Reports: Acetaminophen Middle Chest Pain Score (Numeric/FACES): 7 - Related Data Allergies Allergy/AdvReac Type Severity Reaction Status Date / Time atorvastatin AdvReac Severe Respiratory Verified 04/08/21 18:53 Depression fentanyl AdvReac Severe Respiratory Verified 04/08/21 18:53 Depression hydrocodone AdvReac Severe Respiratory Verified 04/08/21 18:53 Distress oxycodone [Oxycodone] AdvReac Severe Respiratory Verified 04/08/21 18:53 Distress tramadol AdvReac Severe Respiratory Verified 04/08/21 18:53 Distress Home Meds: Home Meds Insulin Aspart [Novolog Flexpen] See Protocol SQ TID 04/21/17 [History] Ezetimibe [Zetia] 10 mg PO BEDTIME 05/09/18 [History] Omeprazole Magnesium [Prilosec Otc] 20 mg PO DAILY 05/09/18 [History] Pravastatin [Pravachol] 40 mg PO DAILY 05/09/18 [History] Apixaban [Eliquis] 5 mg PO BID #60 tablet 09/04/20 [Rx] LORazepam [Ativan] 0.5 mg PO QID PRN 10/16/20 [History] Digoxin 62.5 mcg PO DAILY 12/29/20 [History] Diltiazem HCl [Diltiazem 24Hr ER] 360 mg PO DAILY 12/29/20 [History] Insulin Glargine,Hum.Rec.Anlog [Basaglar Kwikpen U-100] 23 units SUBCUT BID 12/29/20 [History] Magnesium Oxide 400 mg PO DAILY 12/29/20 [History] Melatonin 3 mg PO BEDTIME 12/29/20 [History] Multivit-Min/FA/Lycopene/Lut [Senior Tabs] 1 each PO DAILY 12/29/20 [History] Potassium Chloride 10 meq PO DAILY 12/29/20 [History] Torsemide 20 mg PO BID 12/29/20 [History] carvediloL [Carvedilol] 25 mg PO BID 12/29/20 [History] Past Medical History HEENT History: Reports: Allergic Rhinitis, Impaired Vision Other HEENT History: wear glasses Cardiovascular History: Reports: Afib, Heart Failure, High Cholesterol, Hypertension, Pulmonary Hypertension, PVD Other Cardiovascular History: aortic stenosis, CHF, cor pulmonae, Respiratory History: Reports: Sleep Apnea Other Respiratory History: Respiratory failure, hypoxemia, chronic o2 use at 2L per nasal canula during day, 6 L at night Gastrointestinal History: Reports: Gastritis, GERD, Hemorrhoids, PUD Other Gastrointestinal History: Stomach ulcer, transaminitis, hemorrhagic gastritis, blocked bile duct Genitourinary History: Reports: Chronic Renal Insuffiency, Urinary Incontinence Other Genitourinary History: acute renal failure 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: Musculoskeletal History: Reports: Osteoarthritis, RA Other Musculoskeletal History: knee pain Neurological History: Reports: None Psychiatric History: Reports: Anxiety, Depression Endocrine/Metabolic History: Reports: Diabetes, Type II, Obesity/BMI 30+ Hematologic History: Reports: Anemia, Anticoagulation Therapy Other Hematologic History: takes iron Immunologic History: Reports: None Oncologic (Cancer) History: Reports: None Dermatologic History: Reports: Cellulitis Other Dermatologic History: diabetic ulceration to left great toe - Infectious Disease History Infectious Disease History: Reports: Chicken Pox, Measles, Mumps, Rubella - Past Surgical History HEENT Surgical History: Reports: Cataract Surgery GI Surgical History: Reports: Appendectomy, Cholecystectomy, Colonoscopy, EGD, ERCP Female Surgical History: Reports: Breast Biopsy Musculoskeletal Surgical History: Reports: Amputation, Carpal Tunnel, Knee Replacement Other Musculoskeletal Surgeries/Procedures:: Bilateral TKR, left great toe and 3rd toe amputation Oncologic Surgical History: Reports: Biopsy of Breast Social & Family History - Family History Family Medical History: No Pertinent Family History - Tobacco Use Tobacco Use Status *Q: Never Tobacco User - Caffeine Use Caffeine Use: Reports: Coffee, Tea Caffeine Use Comment: 2 cups in the morning, and 1 cup in the afternoon - Recreational Drug Use Recreational Drug Use: No - Living Situation & Occupation Living situation: Reports: , with Family (Daughter + son-in-law) Occupation: Retired ED ROS GENERAL - Review of Systems Review Of Systems: Comprehensive ROS is negative, except as noted in HPI. Constitutional: Reports: No Symptoms. Denies: Diaphoresis Respiratory: Reports: Pleuritic Chest Pain. Denies: Cough, Sputum Cardiovascular: Reports: Chest Pain. Denies: Dyspnea on Exertion, Orthopnea, Palpitations GI/Abdominal: Reports: No Symptoms : Reports: No Symptoms Musculoskeletal: Reports: No Symptoms Skin: Reports: No Symptoms Neurological: Reports: No Symptoms Psychiatric: Reports: No Symptoms ED EXAM, GENERAL - Physical Exam Exam: See Below Exam Limited By: No Limitations General Appearance: Alert, No Apparent Distress Head: Atraumatic, Normocephalic Neck: Normal Inspection, Supple Respiratory/Chest: No Respiratory Distress, Chest Non-Tender, Decreased Breath Sounds. No: Crackles, Rales, Wheezing, Retractions Cardiovascular: Regular Rate, Rhythm, No Edema, No JVD GI/Abdominal: Normal Bowel Sounds, Soft, Non-Tender Extremities: No Pedal Edema Neurological: Alert, Oriented, CN II-XII Intact Psychiatric: Normal Affect Skin Exam: Warm, Dry, Normal Color, No Rash Lymphatic: No Adenopathy #1 Interpretation EKG Date: 04/08/21 Rhythm: A-Fib Rate (Beats/Min): 95 QRS: Normal ST-T: Normal Course - Vital Signs Text/Narrative:: Patient received 2 doses of morphine each 2 mg which did help with her chest pain symptoms. Her initial lab work was unremarkable. Second troponin was slightly elevated. Patient's chest x-ray shows her to have possible effusion versus mass in the left lower lung. Otherwise it shows CHF findings. Patient clinically is not in heart failure. Patient's findings were discussed with hospitalist Dr. Khan who has requested that I admit the patient with bridging orders and she will be seen in the morning. Patient is aware that she has been admitted to the hospital. Blood pressure has been elevated but otherwise vital signs have been stable. Last Recorded V/S: Last Vital Signs Temp 97 F 04/08/21 18:48 Pulse 99 04/08/21 18:48 Resp 24 H 04/08/21 18:48 BP 159/126 H 04/08/21 18:48 Pulse Ox 96 04/08/21 18:48 - Orders/Labs/Meds Orders: Active Orders 24 hr Category Date Time Status Oxygen Therapy [RC] ASDIRECTED Care 04/08/21 19:21 Active Peripheral IV Care [RC] . DIRECTED Care 04/08/21 19:23 Active CORONAVIRUS COVID-19 GWENDOLYN [MOLEC] Stat Lab 04/08/21 23:03 Received CULTURE URINE [MREF] Stat Lab 04/08/21 21:04 Received Sodium Chloride 0.9% [Saline Flush] Med 04/08/21 19:21 Active 10 ml FLUSH ASDIRECTED PRN Peripheral IV Insertion Adult [OM.PC] Routine Oth 04/08/21 19:21 Ordered Medication Orders Sodium Chloride (Sodium Chloride 0.9% 10 Ml Syringe) 10 ml FLUSH ASDIRECTED PRN PRN Reason: Keep Vein Open Last Admin: 04/08/21 18:50 Dose: 10 ml Documented by: CHANA Labs: Laboratory Tests 04/08/21 04/08/21 04/08/21 Range/Units 18:55 18:55 18:55 WBC 8.62 (3.98-10.04) K/mm3 RBC 3.79 L (3.98-5.22) M/mm3 Hgb 10.0 L (11.2-15.7) gm/dl Hct 33.3 L (34.1-44.9) % MCV 87.9 D (79.4-94.8) fl MCH 26.4 (25.6-32.2) pg MCHC 30.0 L (32.2-35.5) g/dl RDW Std Deviation 53.6 H (36.4-46.3) fL Plt Count 258 (182-369) K/mm3 MPV 9.5 (9.4-12.3) fl Neutrophils % (Manual) 74 H (40-60) % Band Neutrophils % 4 (0-10) % Lymphocytes % (Manual) 13 L (20-40) % Atypical Lymphs % 0 % Monocytes % (Manual) 7 (2-10) % Eosinophils % (Manual) 1 (0.7-5.8) % Basophils % (Manual) 1 (0.1-1.2) Platelet Estimate Adequate Hypochromasia 2+ moderate Basophilic Stippling 1+ slight Anisocytosis 1+ slight RBC Morph Comment Abnormal PT 11.1 (9.7-12.0) SECONDS INR 1.04 Sodium 145 (136-145) mEq/L Potassium 4.4 (3.5-5.1) mEq/L Chloride 104 (98-107) mEq/L Carbon Dioxide 31 (21-32) mEq/L Anion Gap 14.4 (5-15) BUN 45 H (7-18) mg/dL Creatinine 1.8 H (0.55-1.02) mg/dL Est Cr Clr Drug Dosing 18.20 mL/min Estimated GFR (MDRD) 27 (>60) mL/min BUN/Creatinine Ratio 25.0 H (14-18) Glucose 132 H (70-99) mg/dL Lactic Acid (0.4-2.0) mmol/L Calcium 8.8 (8.5-10.1) mg/dL Total Bilirubin 0.4 (0.2-1.0) mg/dL AST 23 (15-37) U/L ALT 23 (14-59) U/L Alkaline Phosphatase 119 H (46-116) U/L CK-MB (CK-2) 1.1 (0-3.6) ng/ml Troponin I < 0.017 (0.00-0.056) ng/mL NT-Pro-B Natriuret Pep (0-450) pg/mL Total Protein 7.9 (6.4-8.2) g/dl Albumin 2.8 L (3.4-5.0) g/dl Globulin 5.1 gm/dL Albumin/Globulin Ratio 0.6 L (1-2) Lipase 54 L (73-393) U/L Urine Color (Yellow) Urine Appearance (Clear) Urine pH (5.0-8.0) Ur Specific Thurmond (1.005-1.030) Urine Protein (Negative) Urine Glucose (UA) (Negative) Urine Ketones (Negative) Urine Occult Blood (Negative) Urine Nitrite (Negative) Urine Bilirubin (Negative) Urine Urobilinogen (0.2-1.0) Ur Leukocyte Esterase (Negative) U Hyaline Cast (Auto) (0-5) /lpf Urine RBC (0-5) /hpf Urine WBC (0-5) /hpf Ur Squamous Epith Cells (0-5) /hpf Urine Bacteria (FEW) /hpf Urine Mucus (FEW) /hpf 04/08/21 04/08/21 04/08/21 Range/Units 18:55 19:50 21:04 WBC (3.98-10.04) K/mm3 RBC (3.98-5.22) M/mm3 Hgb (11.2-15.7) gm/dl Hct (34.1-44.9) % MCV (79.4-94.8) fl MCH (25.6-32.2) pg MCHC (32.2-35.5) g/dl RDW Std Deviation (36.4-46.3) fL Plt Count (182-369) K/mm3 MPV (9.4-12.3) fl Neutrophils % (Manual) (40-60) % Band Neutrophils % (0-10) % Lymphocytes % (Manual) (20-40) % Atypical Lymphs % % Monocytes % (Manual) (2-10) % Eosinophils % (Manual) (0.7-5.8) % Basophils % (Manual) (0.1-1.2) Platelet Estimate Hypochromasia Basophilic Stippling Anisocytosis RBC Morph Comment PT (9.7-12.0) SECONDS INR Sodium (136-145) mEq/L Potassium (3.5-5.1) mEq/L Chloride (98-107) mEq/L Carbon Dioxide (21-32) mEq/L Anion Gap (5-15) BUN (7-18) mg/dL Creatinine (0.55-1.02) mg/dL Est Cr Clr Drug Dosing mL/min Estimated GFR (MDRD) (>60) mL/min BUN/Creatinine Ratio (14-18) Glucose (70-99) mg/dL Lactic Acid 0.9 (0.4-2.0) mmol/L Calcium (8.5-10.1) mg/dL Total Bilirubin (0.2-1.0) mg/dL AST (15-37) U/L ALT (14-59) U/L Alkaline Phosphatase (46-116) U/L CK-MB (CK-2) (0-3.6) ng/ml Troponin I (0.00-0.056) ng/mL NT-Pro-B Natriuret Pep 2695 H (0-450) pg/mL Total Protein (6.4-8.2) g/dl Albumin (3.4-5.0) g/dl Globulin gm/dL Albumin/Globulin Ratio (1-2) Lipase (73-393) U/L Urine Color Yellow (Yellow) Urine Appearance Clear (Clear) Urine pH 6.0 (5.0-8.0) Ur Specific [place] 1.025 (1.005-1.030) Urine Protein 2+ H (Negative) Urine Glucose (UA) Negative (Negative) Urine Ketones Negative (Negative) Urine Occult Blood Negative (Negative) Urine Nitrite Negative (Negative) Urine Bilirubin Negative (Negative) Urine Urobilinogen 0.2 (0.2-1.0) Ur Leukocyte Esterase Negative (Negative) U Hyaline Cast (Auto) 10-20 H (0-5) /lpf Urine RBC 0-5 (0-5) /hpf Urine WBC 0-5 (0-5) /hpf Ur Squamous Epith Cells 0-5 (0-5) /hpf Urine Bacteria Few (FEW) /hpf Urine Mucus Not seen (FEW) /hpf 04/08/21 Range/Units 22:15 WBC (3.98-10.04) K/mm3 RBC (3.98-5.22) M/mm3 Hgb (11.2-15.7) gm/dl Hct (34.1-44.9) % MCV (79.4-94.8) fl MCH (25.6-32.2) pg MCHC (32.2-35.5) g/dl RDW Std Deviation (36.4-46.3) fL Plt Count (182-369) K/mm3 MPV (9.4-12.3) fl Neutrophils % (Manual) (40-60) % Band Neutrophils % (0-10) % Lymphocytes % (Manual) (20-40) % Atypical Lymphs % % Monocytes % (Manual) (2-10) % Eosinophils % (Manual) (0.7-5.8) % Basophils % (Manual) (0.1-1.2) Platelet Estimate Hypochromasia Basophilic Stippling Anisocytosis RBC Morph Comment PT (9.7-12.0) SECONDS INR Sodium (136-145) mEq/L Potassium (3.5-5.1) mEq/L Chloride (98-107) mEq/L Carbon Dioxide (21-32) mEq/L Anion Gap (5-15) BUN (7-18) mg/dL Creatinine (0.55-1.02) mg/dL Est Cr Clr Drug Dosing mL/min Estimated GFR (MDRD) (>60) mL/min BUN/Creatinine Ratio (14-18) Glucose (70-99) mg/dL Lactic Acid (0.4-2.0) mmol/L Calcium (8.5-10.1) mg/dL Total Bilirubin (0.2-1.0) mg/dL AST (15-37) U/L ALT (14-59) U/L Alkaline Phosphatase (46-116) U/L CK-MB (CK-2) (0-3.6) ng/ml Troponin I 0.025 (0.00-0.056) ng/mL NT-Pro-B Natriuret Pep (0-450) pg/mL Total Protein (6.4-8.2) g/dl Albumin (3.4-5.0) g/dl Globulin gm/dL Albumin/Globulin Ratio (1-2) Lipase (73-393) U/L Urine Color (Yellow) Urine Appearance (Clear) Urine pH (5.0-8.0) Ur Specific [place] (1.005-1.030) Urine Protein (Negative) Urine Glucose (UA) (Negative) Urine Ketones (Negative) Urine Occult Blood (Negative) Urine Nitrite (Negative) Urine Bilirubin (Negative) Urine Urobilinogen (0.2-1.0) Ur Leukocyte Esterase (Negative) U Hyaline Cast (Auto) (0-5) /lpf Urine RBC (0-5) /hpf Urine WBC (0-5) /hpf Ur Squamous Epith Cells (0-5) /hpf Urine Bacteria (FEW) /hpf Urine Mucus (FEW) /hpf Meds: Medications Generic Name Dose Route Start Last Admin Trade Name Freq PRN Reason Stop Dose Admin Sodium Chloride 10 ml 04/08/21 19:21 04/08/21 18:50 Sodium Chloride 0.9% 10 Ml Syringe FLUSH 10 ml ASDIRECTED PRN Administration Keep Vein Open Discontinued Medications Generic Name Dose Route Start Last Admin Trade Name Freq PRN Reason Stop Dose Admin Morphine Sulfate 2 mg 04/08/21 19:28 04/08/21 19:46 Morphine 2 Mg/Ml Syringe IVPUSH 04/08/21 19:29 2 mg ONETIME ONE Administration Morphine Sulfate 2 mg 04/08/21 20:37 04/08/21 20:47 Morphine 2 Mg/Ml Syringe IVPUSH 04/08/21 20:38 2 mg ONETIME ONE Administration Departure - Departure Time of Disposition: 23:19 Disposition: Admitted As Inpatient 67 Condition: Fair Clinical Impression: Atypical chest pain, Hypertensive urgency Sepsis Event Note (ED) - Evaluation Sepsis Screening Result: No Definite Risk - Focused Exam Vital Signs: Vital Signs Temp Pulse Resp BP Pulse Ox 04/08/21 18:48 97 F 99 24 H 159/126 H 96 - My Orders Last 24 Hours: My Active Orders 04/08/21 19:21 Oxygen Therapy [RC] ASDIRECTED Sodium Chloride 0.9% [Saline Flush] 10 ml FLUSH ASDIRECTED PRN Peripheral IV Insertion Adult [OM.PC] Routine 04/08/21 19:23 Peripheral IV Care [RC] . DIRECTED 04/08/21 21:04 CULTURE URINE [MREF] Stat 04/08/21 23:03 CORONAVIRUS COVID-19 GWENDOLYN [MOLEC] Stat - Assessment/Plan Last 24 Hours: My Active Orders 04/08/21 19:21 Oxygen Therapy [RC] ASDIRECTED Sodium Chloride 0.9% [Saline Flush] 10 ml FLUSH ASDIRECTED PRN Peripheral IV Insertion Adult [OM.PC] Routine 04/08/21 19:23 Peripheral IV Care [RC] . DIRECTED 04/08/21 21:04 CULTURE URINE [MREF] Stat 04/08/21 23:03 CORONAVIRUS COVID-19 GWENDOLYN [MOLEC] Stat
--- NOTE | 2021-04-08 20:06 | CR ---
Chest: Portable view of the chest was obtained. Comparison: Prior chest x-ray of 10/31/20 and 10/17/20. Increased density is seen within the left lung base which is more prominent than on prior exam. Pulmonary vessels are slightly congested. Heart is enlarged. Bony structures are grossly intact. Impression: 1. Increasing density within the left lung base. Please correlate if patient has any symptoms of pneumonia or aspiration. 2. Findings are also suspicious for early CHF. Diagnostic code #3
[2021-04-09] MEDS ORDERED: Morphine 2 MG/ML SYRINGE IVPUSH ONE (00:17)
[2021-04-09] MEDS ORDERED: Nitroglycerin 0.4 MG Tab.SL SL PRN (04:49)
[2021-04-09] MEDS ORDERED: Morphine 2 MG/ML SYRINGE ONE (05:00)
[2021-04-09] MEDS: Morphine 2 MG/ML SYRINGE IVPUSH PRN ×2 (05:03→13:01)
[2021-04-09] MEDS ORDERED: Ondansetron 4 MG/2 ML SDV IV PRN (08:21)
[2021-04-09] MEDS ORDERED: Acetaminophen 325 MG Tab PO PRN ×2 (08:21→16:11)
[2021-04-09] MEDS ORDERED: Furosemide 40 MG/4 ML VIAL IVPUSH SCH ×2 (09:00→16:00)
[2021-04-09] MEDS: Pantoprazole 40 MG Tab.CR PO SCH (09:40)
[2021-04-09] MEDS: Apixaban 5 MG Tab PO SCH ×2 (09:41→20:13)
[2021-04-09] MEDS: Carvedilol 12.5 MG Tab PO SCH ×2 (09:44→20:13)
[2021-04-09] MEDS: Diltiazem 180 MG Cap.CD PO SCH (09:44)
[2021-04-09] MEDS: Digoxin 125 MCG Tab PO SCH (09:44)
[2021-04-09] MEDS: Hydroxychloroquine 200 MG Tab PO SCH (09:53)
[2021-04-09] MEDS: Insulin Glarg,Human.Rec.Analog 100 Unit/ML SUBCUT SCH ×2 (09:53→20:14)
[2021-04-09] MEDS: Insulin Lispro 100 UNIT/ML 10 ML Vial SUBCUT SCH ×2 (11:39→17:50)
[2021-04-09] MEDS ORDERED: Calcium Carbonate 500 MG Tab.Chew PO PRN (12:38)
--- NOTE | 2021-04-09 16:14 | PCM.HP.2 ---
H&P History of Present Illness - General Date of Service: 04/09/21 Admit Problem/Dx: Admission Diagnosis/Problem Admission Diagnosis/Problem CHF, Congestive heart failure Source of Information: Patient - History of Present Illness Initial Comments - Free Text/Narative: 80-year-old female with multiple medical problems including atrial fibrillation, heart failure, CO/NSTEMI, pulmonary hypertension, peripheral vascular disease, aortic stenosis, cor pulmonale, LEILANI, rheumatoid arthritis, insulin-dependent diabetes presenting for evaluation of chest pain and sob. The patient endorses pleuritic intermittent chest pain and SOB. She endorses orthopnea and increased lower extremity edema. She is chronically anticoagulated with eliquis. She denies fever and has minimal cough. In the ED initial troponin was WNL. CXR with concerns for possible early chf vs possible infiltrate. She states her chest pain improved with morphine. On chronic oxygen at home 2-6 liters baseline. Her chest pain is midsternal; sometimes pleuritic and has improved this morning. Past Medical History HEENT History: Reports: Allergic Rhinitis, Cataract, Impaired Vision Cardiovascular History: Reports: Afib, Arrhythmia, Heart Failure, Heart Murmur, High Cholesterol, Hypertension, Pulmonary Hypertension, PVD Other Cardiovascular History: aortic stenosis, CHF, cor pulmonae, aortic gianluca nosis Respiratory History: Reports: Pneumonia, Recurrent, Sleep Apnea Other Respiratory History: pulmonary HTN, respiratory failure, hypoxemia, chronic o2 use at 2L per nasal canula during day, 6 L at night Gastrointestinal History: Reports: Chronic Constipation, Diverticulosis, Gastritis, GERD, Hemorrhoids, PUD Other Gastrointestinal History: Stomach ulcer, transaminitis, hemorrhagic gastritis, blocked bile duct Genitourinary History: Reports: Acute Renal Failure, Urinary Incontinence Other Genitourinary History: acute renal failure CUTTER DOWN History: Reports: Musculoskeletal History: Reports: RA, Other (See Below) Other Musculoskeletal History: knee pain Neurological History: Reports: None Psychiatric History: Reports: Anxiety, Depression Endocrine/Metabolic History: Reports: Diabetes, Type II, Obesity/BMI 30+ Hematologic History: Reports: Anemia Other Hematologic History: takes iron Immunologic History: Reports: None Oncologic (Cancer) History: Reports: None Dermatologic History: Reports: Cellulitis Other Dermatologic History: diabetic ulceration to left great toe - Infectious Disease History Infectious Disease History: Reports: Chicken Pox, Measles, Mumps, Rubella - Past Surgical History HEENT Surgical History: Reports: Cataract Surgery GI Surgical History: Reports: Appendectomy, Cholecystectomy, Colonoscopy, EGD, ERCP Female Surgical History: Reports: Breast Biopsy Musculoskeletal Surgical History: Reports: Amputation, Carpal Tunnel, Knee Replacement Other Musculoskeletal Surgeries/Procedures:: Bilateral TKR, left great toe and 3rd toe amputation Oncologic Surgical History: Reports: Biopsy of Breast Social & Family History - Family History Family Medical History: No Pertinent Family History - Tobacco Use Tobacco Use Status *Q: Never Tobacco User Second Hand Smoke Exposure: Yes Middle Chest Pain Score (Numeric/FACES): 4 - Related Data Allergies/Adverse Reactions: Allergies Allergy/AdvReac Type Severity Reaction Status Date / Time atorvastatin AdvReac Severe Respiratory Verified 04/09/21 01:45 Depression fentanyl AdvReac Severe Respiratory Verified 04/09/21 01:45 Depression hydrocodone AdvReac Severe Respiratory Verified 04/09/21 01:45 Distress oxycodone [Oxycodone] AdvReac Severe Respiratory Verified 04/09/21 01:45 Distress tramadol AdvReac Severe Respiratory Verified 04/09/21 01:45 Distress Home Medications: Home Meds Insulin Aspart [Novolog Flexpen] See Protocol SQ TID 04/21/17 [History] Ezetimibe [Zetia] 10 mg PO DAILY 05/09/18 [History] Omeprazole Magnesium [Prilosec Otc] 20 mg PO DAILY 05/09/18 [History] Pravastatin [Pravachol] 40 mg PO DAILY 05/09/18 [History] Apixaban [Eliquis] 5 mg PO BID #60 tablet 09/04/20 [Rx] LORazepam [Ativan] 0.5 mg PO QID PRN 10/16/20 [History] Digoxin 62.5 mcg PO DAILY 12/29/20 [History] Diltiazem HCl [Diltiazem 24Hr ER] 360 mg PO DAILY 12/29/20 [History] Insulin Glargine,Hum.Rec.Anlog [Basaglar Kwikpen U-100] 23 units SUBCUT BID 12/29/20 [History] Melatonin 3 mg PO BEDTIME PRN 12/29/20 [History] Multivit-Min/FA/Lycopene/Lut [Senior Tabs] 1 each PO DAILY 12/29/20 [History] Potassium Chloride 10 meq PO DAILY 12/29/20 [History] Torsemide 20 mg PO QPM 12/29/20 [History] carvediloL [Carvedilol] 25 mg PO BID 12/29/20 [History] Acetaminophen [Tylenol] 325 mg PO Q6HR PRN 04/09/21 [History] Fish Oil/[place]-3 Fatty Acids [Fish Oil 1,000 MG] 1,000 mg PO DAILY 04/09/21 [History] Hydroxychloroquine [Plaquenil] 200 mg PO DAILY 04/09/21 [History] Leflunomide [Arava] 20 mg PO DAILY 04/09/21 [History] Magnesium Oxide 400 mg PO DAILY 04/09/21 [History] Saccharomyces Boulardii [Florastor] 1 tab PO DAILY 04/09/21 [History] Torsemide [Demadex] 40 mg PO DAILY 04/09/21 [History] cephALEXin [Keflex] 250 mg PO TID 04/09/21 [History] predniSONE [Prednisone] 1 mg PO DAILY 04/09/21 [History] Past Medical History HEENT History: Reports: Allergic Rhinitis, Impaired Vision Other HEENT History: wear glasses Cardiovascular History: Reports: Afib, Heart Failure, High Cholesterol, Hypertension, Pulmonary Hypertension, PVD, Other (See Below) Other Cardiovascular History: aortic stenosis, CHF Respiratory History: Reports: Sleep Apnea, SOB Other Respiratory History: Respiratory failure, chronic o2 use at 2L per nasal canula during day and bipap with 6 L at night Gastrointestinal History: Reports: Gastritis, GERD, Hemorrhoids, PUD, Other (See Below) Other Gastrointestinal History: Stomach ulcer, transaminitis, hemorrhagic gastritis, blocked bile duct Genitourinary History: Reports: Chronic Renal Insuffiency, Urinary Incontinence Other Genitourinary History: acute renal failure CUTTER DOWN History: Reports: Musculoskeletal History: Reports: Osteoarthritis, RA, Other (See Below) Other Musculoskeletal History: knee pain Neurological History: Reports: None Psychiatric History: Reports: Anxiety, Depression Endocrine/Metabolic History: Reports: Diabetes, Type II, Obesity/BMI 30+ Hematologic History: Reports: Anemia, Anticoagulation Therapy, Iron Deficiency Other Hematologic History: takes iron Immunologic History: Reports: None Oncologic (Cancer) History: Reports: None Dermatologic History: Reports: Cellulitis, Other (See Below) Other Dermatologic History: diabetic ulceration to left great toe - Infectious Disease History Infectious Disease History: Reports: Chicken Pox, Measles, Mumps, Rubella - Past Surgical History Head Surgeries/Procedures: Reports: None HEENT Surgical History: Reports: Cataract Surgery Cardiovascular Surgical History: Reports: None Respiratory Surgical History: Reports: None GI Surgical History: Reports: Appendectomy, Cholecystectomy, Colonoscopy, EGD, ERCP Female Surgical History: Reports: Breast Biopsy Endocrine Surgical History: Reports: None Neurological Surgical History: Reports: None Musculoskeletal Surgical History: Reports: Amputation, Carpal Tunnel, Knee Replacement Other Musculoskeletal Surgeries/Procedures:: Bilateral TKR, left great toe and 3rd toe amputation Oncologic Surgical History: Reports: Biopsy of Breast Social & Family History - Family History Family Medical History: No Pertinent Family History - Tobacco Use Tobacco Use Status *Q: Never Tobacco User - Caffeine Use Caffeine Use: Reports: Coffee Caffeine Use Comment: 1 cup of coffee every morning - Recreational Drug Use Recreational Drug Use: No - Living Situation & Occupation Living situation: Reports: , with Family (Daughter + son-in-law) Occupation: Retired H&P Review of Systems - Review of Systems: Review Of Systems: Comprehensive ROS is negative, except as noted in HPI. Exam - Exam Exam: See Below - Vital Signs Vital Signs: Last Vital Signs Temp 97.5 F 04/09/21 11:55 Pulse 80 04/09/21 11:55 Resp 18 04/09/21 11:55 BP 106/68 04/09/21 11:55 Pulse Ox 100 04/09/21 11:55 Weight: 252 lb - Exam Physical Exam Comments:: Gen: elderly obese female in no acute distress HEENT: NCAT EOMI MMM Neck: Supple CV: IRIR normal s1 s2 Lungs: Diminished breath sounds Abd: Soft, nt, nd Neuro: AOX3, nonfocal screening exam Psych: appropriate affect ext: 3+ bilateral lower extremity edema MSK: age appropriate muscle mass - Patient Data Lab Results Last 24 hrs: Laboratory Results - last 24 hr 04/08/21 04/08/21 04/08/21 Range/Units 18:55 18:55 18:55 WBC 8.62 (3.98-10.04) K/mm3 RBC 3.79 L (3.98-5.22) M/mm3 Hgb 10.0 L (11.2-15.7) gm/dl Hct 33.3 L (34.1-44.9) % MCV 87.9 D (79.4-94.8) fl MCH 26.4 (25.6-32.2) pg MCHC 30.0 L (32.2-35.5) g/dl RDW Std Deviation 53.6 H (36.4-46.3) fL Plt Count 258 (182-369) K/mm3 MPV 9.5 (9.4-12.3) fl Neut % (Auto) (34.0-71.1) % Lymph % (Auto) (19.3-51.7) % Mitchell % (Auto) (4.7-12.5) % Eos % (Auto) (0.7-5.8) Baso % (Auto) (0.1-1.2) % Neut # (Auto) (1.56-6.13) K/mm3 Lymph # (Auto) (1.18-3.74) K/mm3 Mitchell # (Auto) (0.24-0.36) K/mm3 Eos # (Auto) (0.04-0.36) K/mm3 Baso # (Auto) (0.01-0.08) K/mm3 Neutrophils % (Manual) 74 H (40-60) % Band Neutrophils % 4 (0-10) % Lymphocytes % (Manual) 13 L (20-40) % Atypical Lymphs % 0 % Monocytes % (Manual) 7 (2-10) % Eosinophils % (Manual) 1 (0.7-5.8) % Basophils % (Manual) 1 (0.1-1.2) Manual Slide Review Platelet Estimate Adequate Hypochromasia 2+ moderate Basophilic Stippling 1+ slight Anisocytosis 1+ slight RBC Morph Comment Abnormal PT 11.1 (9.7-12.0) SECONDS INR 1.04 Sodium 145 (136-145) mEq/L Potassium 4.4 (3.5-5.1) mEq/L Chloride 104 (98-107) mEq/L Carbon Dioxide 31 (21-32) mEq/L Anion Gap 14.4 (5-15) BUN 45 H (7-18) mg/dL Creatinine 1.8 H (0.55-1.02) mg/dL Est Cr Clr Drug Dosing 18.20 mL/min Estimated GFR (MDRD) 27 (>60) mL/min BUN/Creatinine Ratio 25.0 H (14-18) Glucose 132 H (70-99) mg/dL POC Glucose (70-99) mg/dL Lactic Acid (0.4-2.0) mmol/L Calcium 8.8 (8.5-10.1) mg/dL Total Bilirubin 0.4 (0.2-1.0) mg/dL AST 23 (15-37) U/L ALT 23 (14-59) U/L Alkaline Phosphatase 119 H (46-116) U/L CK-MB (CK-2) 1.1 (0-3.6) ng/ml Troponin I < 0.017 (0.00-0.056) ng/mL NT-Pro-B Natriuret Pep (0-450) pg/mL Total Protein 7.9 (6.4-8.2) g/dl Albumin 2.8 L (3.4-5.0) g/dl Globulin 5.1 gm/dL Albumin/Globulin Ratio 0.6 L (1-2) Lipase 54 L (73-393) U/L Urine Color (Yellow) Urine Appearance (Clear) Urine pH (5.0-8.0) Ur Specific Lohn (1.005-1.030) Urine Protein (Negative) Urine Glucose (UA) (Negative) Urine Ketones (Negative) Urine Occult Blood (Negative) Urine Nitrite (Negative) Urine Bilirubin (Negative) Urine Urobilinogen (0.2-1.0) Ur Leukocyte Esterase (Negative) U Hyaline Cast (Auto) (0-5) /lpf Urine RBC (0-5) /hpf Urine WBC (0-5) /hpf Ur Squamous Epith Cells (0-5) /hpf Urine Bacteria (FEW) /hpf Urine Mucus (FEW) /hpf SARS-CoV-2 RNA (GWENDOLYN) (NEGATIVE) 04/08/21 04/08/21 04/08/21 Range/Units 18:55 19:50 21:04 WBC (3.98-10.04) K/mm3 RBC (3.98-5.22) M/mm3 Hgb (11.2-15.7) gm/dl Hct (34.1-44.9) % MCV (79.4-94.8) fl MCH (25.6-32.2) pg MCHC (32.2-35.5) g/dl RDW Std Deviation (36.4-46.3) fL Plt Count (182-369) K/mm3 MPV (9.4-12.3) fl Neut % (Auto) (34.0-71.1) % Lymph % (Auto) (19.3-51.7) % Mitchell % (Auto) (4.7-12.5) % Eos % (Auto) (0.7-5.8) Baso % (Auto) (0.1-1.2) % Neut # (Auto) (1.56-6.13) K/mm3 Lymph # (Auto) (1.18-3.74) K/mm3 Mitchell # (Auto) (0.24-0.36) K/mm3 Eos # (Auto) (0.04-0.36) K/mm3 Baso # (Auto) (0.01-0.08) K/mm3 Neutrophils % (Manual) (40-60) % Band Neutrophils % (0-10) % Lymphocytes % (Manual) (20-40) % Atypical Lymphs % % Monocytes % (Manual) (2-10) % Eosinophils % (Manual) (0.7-5.8) % Basophils % (Manual) (0.1-1.2) Manual Slide Review Platelet Estimate Hypochromasia Basophilic Stippling Anisocytosis RBC Morph Comment PT (9.7-12.0) SECONDS INR Sodium (136-145) mEq/L Potassium (3.5-5.1) mEq/L Chloride (98-107) mEq/L Carbon Dioxide (21-32) mEq/L Anion Gap (5-15) BUN (7-18) mg/dL Creatinine (0.55-1.02) mg/dL Est Cr Clr Drug Dosing mL/min Estimated GFR (MDRD) (>60) mL/min BUN/Creatinine Ratio (14-18) Glucose (70-99) mg/dL POC Glucose (70-99) mg/dL Lactic Acid 0.9 (0.4-2.0) mmol/L Calcium (8.5-10.1) mg/dL Total Bilirubin (0.2-1.0) mg/dL AST (15-37) U/L ALT (14-59) U/L Alkaline Phosphatase (46-116) U/L CK-MB (CK-2) (0-3.6) ng/ml Troponin I (0.00-0.056) ng/mL NT-Pro-B Natriuret Pep 2695 H (0-450) pg/mL Total Protein (6.4-8.2) g/dl Albumin (3.4-5.0) g/dl Globulin gm/dL Albumin/Globulin Ratio (1-2) Lipase (73-393) U/L Urine Color Yellow (Yellow) Urine Appearance Clear (Clear) Urine pH 6.0 (5.0-8.0) Ur Specific Lohn 1.025 (1.005-1.030) Urine Protein 2+ H (Negative) Urine Glucose (UA) Negative (Negative) Urine Ketones Negative (Negative) Urine Occult Blood Negative (Negative) Urine Nitrite Negative (Negative) Urine Bilirubin Negative (Negative) Urine Urobilinogen 0.2 (0.2-1.0) Ur Leukocyte Esterase Negative (Negative) U Hyaline Cast (Auto) 10-20 H (0-5) /lpf Urine RBC 0-5 (0-5) /hpf Urine WBC 0-5 (0-5) /hpf Ur Squamous Epith Cells 0-5 (0-5) /hpf Urine Bacteria Few (FEW) /hpf Urine Mucus Not seen (FEW) /hpf SARS-CoV-2 RNA (GWENDOLYN) (NEGATIVE) 04/08/21 04/08/21 04/08/21 Range/Units 22:15 23:03 23:55 WBC (3.98-10.04) K/mm3 RBC (3.98-5.22) M/mm3 Hgb (11.2-15.7) gm/dl Hct (34.1-44.9) % MCV (79.4-94.8) fl MCH (25.6-32.2) pg MCHC (32.2-35.5) g/dl RDW Std Deviation (36.4-46.3) fL Plt Count (182-369) K/mm3 MPV (9.4-12.3) fl Neut % (Auto) (34.0-71.1) % Lymph % (Auto) (19.3-51.7) % Mitchell % (Auto) (4.7-12.5) % Eos % (Auto) (0.7-5.8) Baso % (Auto) (0.1-1.2) % Neut # (Auto) (1.56-6.13) K/mm3 Lymph # (Auto) (1.18-3.74) K/mm3 Mitchell # (Auto) (0.24-0.36) K/mm3 Eos # (Auto) (0.04-0.36) K/mm3 Baso # (Auto) (0.01-0.08) K/mm3 Neutrophils % (Manual) (40-60) % Band Neutrophils % (0-10) % Lymphocytes % (Manual) (20-40) % Atypical Lymphs % % Monocytes % (Manual) (2-10) % Eosinophils % (Manual) (0.7-5.8) % Basophils % (Manual) (0.1-1.2) Manual Slide Review Platelet Estimate Hypochromasia Basophilic Stippling Anisocytosis RBC Morph Comment PT (9.7-12.0) SECONDS INR Sodium (136-145) mEq/L Potassium (3.5-5.1) mEq/L Chloride (98-107) mEq/L Carbon Dioxide (21-32) mEq/L Anion Gap (5-15) BUN (7-18) mg/dL Creatinine (0.55-1.02) mg/dL Est Cr Clr Drug Dosing mL/min Estimated GFR (MDRD) (>60) mL/min BUN/Creatinine Ratio (14-18) Glucose (70-99) mg/dL POC Glucose 124 H (70-99) mg/dL Lactic Acid (0.4-2.0) mmol/L Calcium (8.5-10.1) mg/dL Total Bilirubin (0.2-1.0) mg/dL AST (15-37) U/L ALT (14-59) U/L Alkaline Phosphatase (46-116) U/L CK-MB (CK-2) (0-3.6) ng/ml Troponin I 0.025 (0.00-0.056) ng/mL NT-Pro-B Natriuret Pep (0-450) pg/mL Total Protein (6.4-8.2) g/dl Albumin (3.4-5.0) g/dl Globulin gm/dL Albumin/Globulin Ratio (1-2) Lipase (73-393) U/L Urine Color (Yellow) Urine Appearance (Clear) Urine pH (5.0-8.0) Ur Specific Lohn (1.005-1.030) Urine Protein (Negative) Urine Glucose (UA) (Negative) Urine Ketones (Negative) Urine Occult Blood (Negative) Urine Nitrite (Negative) Urine Bilirubin (Negative) Urine Urobilinogen (0.2-1.0) Ur Leukocyte Esterase (Negative) U Hyaline Cast (Auto) (0-5) /lpf Urine RBC (0-5) /hpf Urine WBC (0-5) /hpf Ur Squamous Epith Cells (0-5) /hpf Urine Bacteria (FEW) /hpf Urine Mucus (FEW) /hpf SARS-CoV-2 RNA (GWENDOLYN) Negative (NEGATIVE) 04/09/21 04/09/21 04/09/21 Range/Units 06:02 06:02 06:02 WBC 7.05 (3.98-10.04) K/mm3 RBC 3.39 L (3.98-5.22) M/mm3 Hgb 9.0 L (11.2-15.7) gm/dl Hct 30.4 L (34.1-44.9) % MCV 89.7 (79.4-94.8) fl MCH 26.5 (25.6-32.2) pg MCHC 29.6 L (32.2-35.5) g/dl RDW Std Deviation 55.4 H (36.4-46.3) fL Plt Count 214 (182-369) K/mm3 MPV 9.8 (9.4-12.3) fl Neut % (Auto) 73.5 H (34.0-71.1) % Lymph % (Auto) 11.1 L (19.3-51.7) % Mitchell % (Auto) 15.2 H (4.7-12.5) % Eos % (Auto) 0 L (0.7-5.8) Baso % (Auto) 0.1 (0.1-1.2) % Neut # (Auto) 5.18 (1.56-6.13) K/mm3 Lymph # (Auto) 0.78 L (1.18-3.74) K/mm3 Mitchell # (Auto) 1.07 H (0.24-0.36) K/mm3 Eos # (Auto) 0.00 L (0.04-0.36) K/mm3 Baso # (Auto) 0.01 (0.01-0.08) K/mm3 Neutrophils % (Manual) (40-60) % Band Neutrophils % (0-10) % Lymphocytes % (Manual) (20-40) % Atypical Lymphs % % Monocytes % (Manual) (2-10) % Eosinophils % (Manual) (0.7-5.8) % Basophils % (Manual) (0.1-1.2) Manual Slide Review Abnormal smear Platelet Estimate Hypochromasia Basophilic Stippling Anisocytosis RBC Morph Comment PT (9.7-12.0) SECONDS INR Sodium 145 (136-145) mEq/L Potassium 4.5 (3.5-5.1) mEq/L Chloride 105 (98-107) mEq/L Carbon Dioxide 32 (21-32) mEq/L Anion Gap 12.5 (5-15) BUN 49 H (7-18) mg/dL Creatinine 1.9 H (0.55-1.02) mg/dL Est Cr Clr Drug Dosing 17.24 mL/min Estimated GFR (MDRD) 26 (>60) mL/min BUN/Creatinine Ratio 25.8 H (14-18) Glucose 192 H (70-99) mg/dL POC Glucose (70-99) mg/dL Lactic Acid (0.4-2.0) mmol/L Calcium 8.8 (8.5-10.1) mg/dL Total Bilirubin (0.2-1.0) mg/dL AST (15-37) U/L ALT (14-59) U/L Alkaline Phosphatase (46-116) U/L CK-MB (CK-2) (0-3.6) ng/ml Troponin I < 0.017 (0.00-0.056) ng/mL NT-Pro-B Natriuret Pep (0-450) pg/mL Total Protein (6.4-8.2) g/dl Albumin (3.4-5.0) g/dl Globulin gm/dL Albumin/Globulin Ratio (1-2) Lipase (73-393) U/L Urine Color (Yellow) Urine Appearance (Clear) Urine pH (5.0-8.0) Ur Specific Lohn (1.005-1.030) Urine Protein (Negative) Urine Glucose (UA) (Negative) Urine Ketones (Negative) Urine Occult Blood (Negative) Urine Nitrite (Negative) Urine Bilirubin (Negative) Urine Urobilinogen (0.2-1.0) Ur Leukocyte Esterase (Negative) U Hyaline Cast (Auto) (0-5) /lpf Urine RBC (0-5) /hpf Urine WBC (0-5) /hpf Ur Squamous Epith Cells (0-5) /hpf Urine Bacteria (FEW) /hpf Urine Mucus (FEW) /hpf SARS-CoV-2 RNA (GWENDOLYN) (NEGATIVE) 04/09/21 04/09/21 04/09/21 Range/Units 08:13 10:55 12:47 WBC (3.98-10.04) K/mm3 RBC (3.98-5.22) M/mm3 Hgb (11.2-15.7) gm/dl Hct (34.1-44.9) % MCV (79.4-94.8) fl MCH (25.6-32.2) pg MCHC (32.2-35.5) g/dl RDW Std Deviation (36.4-46.3) fL Plt Count (182-369) K/mm3 MPV (9.4-12.3) fl Neut % (Auto) (34.0-71.1) % Lymph % (Auto) (19.3-51.7) % Mitchell % (Auto) (4.7-12.5) % Eos % (Auto) (0.7-5.8) Baso % (Auto) (0.1-1.2) % Neut # (Auto) (1.56-6.13) K/mm3 Lymph # (Auto) (1.18-3.74) K/mm3 Mitchell # (Auto) (0.24-0.36) K/mm3 Eos # (Auto) (0.04-0.36) K/mm3 Baso # (Auto) (0.01-0.08) K/mm3 Neutrophils % (Manual) (40-60) % Band Neutrophils % (0-10) % Lymphocytes % (Manual) (20-40) % Atypical Lymphs % % Monocytes % (Manual) (2-10) % Eosinophils % (Manual) (0.7-5.8) % Basophils % (Manual) (0.1-1.2) Manual Slide Review Platelet Estimate Hypochromasia Basophilic Stippling Anisocytosis RBC Morph Comment PT (9.7-12.0) SECONDS INR Sodium (136-145) mEq/L Potassium (3.5-5.1) mEq/L Chloride (98-107) mEq/L Carbon Dioxide (21-32) mEq/L Anion Gap (5-15) BUN (7-18) mg/dL Creatinine (0.55-1.02) mg/dL Est Cr Clr Drug Dosing mL/min Estimated GFR (MDRD) (>60) mL/min BUN/Creatinine Ratio (14-18) Glucose (70-99) mg/dL POC Glucose 187 H 237 H (70-99) mg/dL Lactic Acid (0.4-2.0) mmol/L Calcium (8.5-10.1) mg/dL Total Bilirubin (0.2-1.0) mg/dL AST (15-37) U/L ALT (14-59) U/L Alkaline Phosphatase (46-116) U/L CK-MB (CK-2) (0-3.6) ng/ml Troponin I < 0.017 (0.00-0.056) ng/mL NT-Pro-B Natriuret Pep (0-450) pg/mL Total Protein (6.4-8.2) g/dl Albumin (3.4-5.0) g/dl Globulin gm/dL Albumin/Globulin Ratio (1-2) Lipase (73-393) U/L Urine Color (Yellow) Urine Appearance (Clear) Urine pH (5.0-8.0) Ur Specific Lohn (1.005-1.030) Urine Protein (Negative) Urine Glucose (UA) (Negative) Urine Ketones (Negative) Urine Occult Blood (Negative) Urine Nitrite (Negative) Urine Bilirubin (Negative) Urine Urobilinogen (0.2-1.0) Ur Leukocyte Esterase (Negative) U Hyaline Cast (Auto) (0-5) /lpf Urine RBC (0-5) /hpf Urine WBC (0-5) /hpf Ur Squamous Epith Cells (0-5) /hpf Urine Bacteria (FEW) /hpf Urine Mucus (FEW) /hpf SARS-CoV-2 RNA (GWENDOLYN) (NEGATIVE) Result Diagrams: 04/09/21 06:02 04/09/21 17:35 Sepsis Event Note - Evaluation Sepsis Screening Result: No Definite Risk - Focused Exam Vital Signs: Vital Signs Temp Pulse Resp BP Pulse Ox Pulse Ox 04/09/21 11:55 97.5 F 80 18 106/68 100 04/09/21 09:44 100 127/92 H 04/09/21 08:35 97 04/09/21 07:18 97.9 F 73 20 146/120 H 94 L 04/09/21 04:17 98.2 F 90 20 138/91 H 96 *Q Meaningful Use (ADM) - VTE *Q VTE Criteria *Q: 2 Problem List Initiated/Reviewed/Updated: Yes Orders Last 24hrs: Active Orders 24 hr Category Date Time Status Admission Status [Patient Status] [ADT] Routine ADT 04/08/21 23:08 Active Patient Status [ADT] Routine ADT 04/09/21 08:21 Active Bedrest Bathroom Privileges [RC] ASDIRECTED Care 04/09/21 01:39 Active Blood Glucose Check, Bedside [RC] WITHMEALSANDBED Care 04/09/21 08:38 Active CPAP Adult [RT BiPAP/CPAP] [RC] ASDIRECTED Care 04/09/21 16:11 Ordered Cardiac Monitoring [RC] CONTINUOUS Care 04/09/21 08:21 Active EKG Documentation Completion [RC] ASDIRECTED Care 04/09/21 06:00 Active EKG Documentation Completion [RC] ASDIRECTED Care 04/09/21 07:11 Active Intake and Output [RC] 0400,1600 Care 04/09/21 08:21 Active Oxygen Therapy [RC] ASDIRECTED Care 04/08/21 19:21 Active Oxygen Therapy [RC] PRN Care 04/09/21 08:21 Active Pulse Oximetry [RC] CONTINUOUS Care 04/09/21 08:21 Active Up With Assistance [RC] ASDIRECTED Care 04/09/21 08:21 Active VTE/DVT Education [RC] PER UNIT ROUTINE Care 04/09/21 08:21 Active Vital Signs [RC] Q4H Care 04/09/21 08:21 Active Cardiac [Heart Healthy Diet] [DIET] Diet 04/09/21 Breakfast Active Heart Healthy Diet [DIET] Diet 04/09/21 Dinner Active CULTURE URINE [MREF] Stat Lab 04/08/21 21:04 Received PROCALCITONIN [REF] Stat Lab 04/09/21 06:02 Received Acetaminophen [TylenoL] Med 04/09/21 16:11 Ordered 325 mg PO Q6HR PRN Acetaminophen [TylenoL] Med 04/09/21 08:21 Active 650 mg PO Q4H PRN Apixaban [Eliquis] Med 04/09/21 09:00 Active 5 mg PO BID Calcium Carbonate [Tums] Med 04/09/21 12:38 Active 500 mg PO Q8H PRN Digoxin [Lanoxin] Med 04/09/21 09:00 Active 62.5 mcg PO DAILY Diltiazem [Cardizem CD] Med 04/09/21 09:00 Active 360 mg PO DAILY Ezetimibe [Zetia] Med 04/09/21 21:00 Active 10 mg PO BEDTIME Furosemide [Lasix] Med 04/09/21 16:00 Active 40 mg IVPUSH 1600 Furosemide [Lasix] Med 04/09/21 09:00 Active 40 mg IVPUSH DAILY Hydroxychloroquine [Plaquenil] Med 04/09/21 09:30 Active 200 mg PO DAILY Insulin Glarg,Human.Rec.Analog [LantUS] Med 04/09/21 09:30 Active 23 unit SUBCUT BID Insulin Lispro [HumaLOG] Med 04/09/21 11:00 Active See Protocol SUBCUT QIDACANDBED Magnesium Oxide Med 04/10/21 09:00 Ordered 400 mg PO DAILY Melatonin Med 04/09/21 21:00 Active 3 mg PO BEDTIME Morphine Med 04/09/21 04:49 Active 2 mg IVPUSH Q1H PRN Nitroglycerin [Nitrostat] Med 04/09/21 04:49 Active 0.4 mg SL Q5M PRN Ondansetron [Zofran] Med 04/09/21 08:21 Active 4 mg IV Q4H PRN Pantoprazole [ProTONIX] Med 04/09/21 09:00 Active 40 mg PO DAILY Patient's Own Medication [Ptom] Med 04/09/21 09:30 Active 0 each PO DAILY Potassium Chloride [Klor-Con 10] Med 04/10/21 09:00 Active 10 meq PO DAILY Pravastatin [Pravachol] Med 04/09/21 21:00 Active 40 mg PO BEDTIME Sodium Chloride 0.9% [Saline Flush] Med 04/08/21 19:21 Active 10 ml FLUSH ASDIRECTED PRN carvediloL [Coreg] Med 04/09/21 09:00 Active 25 mg PO BID predniSONE Med 04/09/21 09:30 Pending 1 mg PO DAILY Peripheral IV Insertion Adult [OM.PC] Routine Oth 04/08/21 19:21 Ordered Code Status [Resuscitation Status] Routine Resus Stat 04/09/21 01:39 Ordered EKG 12 Lead [EK] Routine Ther 04/09/21 06:00 Ordered EKG 12 Lead [EK] Routine Ther 04/09/21 07:11 Ordered EKG 12 Lead [EK] Routine Ther 04/09/21 12:39 Ordered Medication Orders Acetaminophen (Acetaminophen 325 Mg Tab) 650 mg PO Q4H PRN PRN Reason: Pain (Mild 1-3)/fever Acetaminophen (Acetaminophen 325 Mg Tab) 325 mg PO Q6HR PRN PRN Reason: Pain Apixaban (Apixaban 5 Mg Tab) 5 mg PO BID [facility] Last Admin: 04/09/21 09:41 Dose: 5 mg Documented by: TALITA Calcium Carbonate/Glycine (Calcium Carbonate 500 Mg Tab.Chew) 500 mg PO Q8H PRN PRN Reason: Indigestion Last Admin: 04/09/21 13:01 Dose: 500 mg Documented by: TALITA Carvedilol (Carvedilol 12.5 Mg Tab) 25 mg PO BID [facility] Last Admin: 04/09/21 09:44 Dose: 25 mg Documented by: TALITA Digoxin (Digoxin 125 Mcg Tab) 62.5 mcg PO DAILY [facility] Last Admin: 04/09/21 09:44 Dose: 62.5 mcg Documented by: TALITA Diltiazem HCl (Diltiazem 180 Mg Cap.Cd) 360 mg PO DAILY [facility] Last Admin: 04/09/21 09:44 Dose: 360 mg Documented by: TALITA Ezetimibe (Ezetimibe 10 Mg Tab) 10 mg PO BEDTIME [facility] Furosemide (Furosemide 40 Mg/4 Ml Vial) 40 mg IVPUSH DAILY [facility] Last Admin: 04/09/21 09:45 Dose: 40 mg Documented by: TALITA Furosemide (Furosemide 40 Mg/4 Ml Vial) 40 mg IVPUSH 1600 [facility] Hydroxychloroquine Sulfate (Hydroxychloroquine 200 Mg Tab) 200 mg PO DAILY [facility] Last Admin: 04/09/21 09:53 Dose: 200 mg Documented by: TALITA Insulin Glargine (Insulin Glarg,Human.Rec.Analog 100 Unit/Ml) 23 unit SUBCUT BID [facility] Last Admin: 04/09/21 09:53 Dose: 23 units Documented by: TALITA Insulin Human Lispro (Insulin Lispro 100 Unit/Ml 10 Ml Vial) 0 unit SUBCUT QIDA CANDBED [facility]; Protocol Last Admin: 04/09/21 11:39 Dose: 4 unit Documented by: TALITA Magnesium Oxide (Magnesium Oxide 400 Mg Tab) 400 mg PO DAILY [facility] Melatonin (Melatonin 3 Mg Tab) 3 mg PO BEDTIME [facility] Morphine Sulfate (Morphine 2 Mg/Ml Syringe) 2 mg IVPUSH Q1H PRN PRN Reason: Chest Pain Last Admin: 04/09/21 13:01 Dose: 2 mg Documented by: Admin: 04/09/21 05:03 Dose: 2 mg Documented by: JACKIE Nitroglycerin (Nitroglycerin 0.4 Mg Tab.Sl) 0.4 mg SL Q5M PRN PRN Reason: Chest Pain Ondansetron HCl (Ondansetron 4 Mg/2 Ml Sdv) 4 mg IV Q4H PRN PRN Reason: Nausea/Vomiting Last Admin: 04/09/21 13:00 Dose: 4 mg Documented by: TALITA Pantoprazole Sodium (Pantoprazole 40 Mg Tab.Cr) 40 mg PO DAILY [facility] Last Admin: 04/09/21 09:40 Dose: 40 mg Documented by: TALITA Leflunomide 20 Mg (Tablet) 0 each PO DAILY [facility] Last Admin: 04/09/21 11:21 Dose: Not Given Documented by: TALITA Potassium Chloride (Potassium Chloride 10 Meq Tab.Er) 10 meq PO DAILY [facility] Pravastatin Sodium (Pravastatin 20 Mg Tab) 40 mg PO BEDTIME [facility] Prednisone (Prednisone 1 Mg Tab) 1 mg PO DAILY [facility] Sodium Chloride (Sodium Chloride 0.9% 10 Ml Syringe) 10 ml FLUSH ASDIRECTED PRN PRN Reason: Keep Vein Open Last Admin: 04/08/21 18:50 Dose: 10 ml Documented by: CHANA Assessment/Plan Comment:: Assessment: This 80-year-old female with multiple medical problems including atrial fibrillation, heart failure, CO/NSTEMI, pulmonary hypertension, peripheral vascular disease, aortic stenosis, cor pulmonale, LEILANI, rheumatoid arthritis, insulin-dependent diabetes presenting for evaluation of chest pain and sob. The patient endorses pleuritic intermittent chest pain and SOB. CXR concerning for CHF vs PNA, EKG with Afib, Trop WNL, BNP elevated. 1. Pleuritic chest pain/SOB; suspected acute CHF exacerbation vs PNA; PE less likely as patient anticoagulated 2. Hx of CAD/NSTEMI/Pulm HTN 3. Hx of Atrial Fibrillation 4. Hx of Peripheral vascular disease 5. Hx of CKD Stage III 6. Hx of LEILANI on nocturnal bipap 7. Chronic hypoxic respiratory failure; baseline oxygen requirements 2-6 liters 8. Hx of Rheumatoid Arthritis 9. Hx of Insulin dependent Type II DM 10. Anemia of chronic kidney disease Plan -admit inpatient -tele -serial troponin -morphine/nitro prn -echo -lower extremity doppler venous US -check procal -start omnicef/azithromycin -IV lasix -daily weight -I&O -renal US -unable to obtain CT PE study due to renal function; unable to obtain Vq scan till Monday -continue anticoagulation -PT evaluation Code-Full Code CPR only DVT PPx -on eliquis Dispo-estimated discharge in 2-3 days; may need STR - Mortality Measure Prognosis:: Good
[2021-04-09] MEDS: Azithromycin 250 MG Tab PO SCH (16:51)
[2021-04-09] MEDS: Cefdinir 300 MG Cap PO SCH (16:51)
[2021-04-09] MEDS: predniSONE 1 MG Tab PO SCH (16:51)
--- NOTE | 2021-04-09 16:59 | CR ---
Chest: Portable view of the chest was obtained. Comparison: Prior chest x-ray 04/08/21. Increased density is seen within the left lung base. Slight increased density is suggested within the right lung base as an interval change. Central lung markings are slightly increased raising the possibility of mild pulmonary vascular congestion. Degenerative change is noted within both shoulders with no acute osseous finding being seen. Scattered degenerative spurring is noted within the spine. Impression: 1. Questionable increased density within the right lung base as an interval change from prior exam. Difficult to exclude small area of acute pneumonia. 2. Stable parenchymal density within the left lung base from prior study. 3. Slight pulmonary vascular congestion which is stable. 4. Other findings as noted above which are stable. Diagnostic code #3
[2021-04-09] MEDS ORDERED: HYDROmorphone 0.5 MG/0.5 ML Syringe IVPUSH PRN (17:23)
[2021-04-09] MEDS ORDERED: Sodium Chloride 0.9% 500 ML IV ONE (18:24)
[2021-04-09] MEDS ORDERED: Albumin 25% 12.5 GM in Premix Bag 1 BAG IV SCH (18:30)
[2021-04-09] MEDS ORDERED: Albumin 25% 12.5 GM in Premix Bag 1 BAG IV ONE (18:36)
[2021-04-09] MEDS: Melatonin 3 MG Tab PO SCH (20:13)
[2021-04-09] MEDS ORDERED: Pravastatin 20 MG Tab PO SCH (21:00)
[2021-04-09] MEDS ORDERED: Ezetimibe 10 MG Tab PO SCH (21:00)
[2021-04-09] MEDS ORDERED: Lactated Ringers 500 ML IV ONE (22:30)
[2021-04-10] MEDS: Insulin Lispro 100 UNIT/ML 10 ML Vial SUBCUT SCH ×5 (01:11→21:15)
--- NOTE | 2021-04-10 01:12 | PCM.SN.2 ---
- Free Text/Narrative Note: Anesthesia Note for IV start: Start: 52 Stop: 0 IV to the right wrist (22 gauge angio), times one attempt. Site patent and intact and flushed easily with 20ml's of NSCary [facility] CRNA
[2021-04-10] MEDS ORDERED: Albumin 25% 12.5 GM in Premix Bag 1 BAG IV ONE ×2 (07:15→12:05)
[2021-04-10] MEDS ORDERED: Sodium Chloride 0.9% 1,000 ML IV SCH (07:45)
[2021-04-10] MEDS ORDERED: Sodium Chloride 0.9% 500 ML IV SCH (08:20)
[2021-04-10] MEDS ORDERED: Potassium Chloride 10 MEQ Tab.ER PO SCH (09:00)
[2021-04-10] MEDS: Apixaban 5 MG Tab PO SCH (10:21)
[2021-04-10] MEDS: Cefdinir 300 MG Cap PO SCH (10:21)
[2021-04-10] MEDS: Azithromycin 250 MG Tab PO SCH (10:21)
[2021-04-10] MEDS: Hydroxychloroquine 200 MG Tab PO SCH (10:21)
[2021-04-10] MEDS: Pantoprazole 40 MG Tab.CR PO SCH (10:22)
[2021-04-10] MEDS: Magnesium Oxide 400 MG Tab PO SCH (10:22)
[2021-04-10] MEDS: Insulin Glarg,Human.Rec.Analog 100 Unit/ML SUBCUT SCH ×2 (10:22→21:15)
[2021-04-10] MEDS: predniSONE 1 MG Tab PO SCH (10:22)
[2021-04-10] MEDS: Diltiazem 180 MG Cap.CD PO SCH (10:30)
[2021-04-10] MEDS: Carvedilol 12.5 MG Tab PO SCH (10:30)
[2021-04-10] MEDS: Leflunomide 20 MG Tablet **PTOM PO SCH (11:17)
[2021-04-10] MEDS ORDERED: Albumin 25% 12.5 GM in Premix Bag 1 BAG IV SCH (12:00)
[2021-04-10] MEDS ORDERED: LORazepam 0.5 MG Tab PO PRN (12:00)
[2021-04-10] MEDS: Digoxin 125 MCG Tab PO SCH (12:06)
--- NOTE | 2021-04-10 12:35 | PCM.PN ---
- General Info Date of Service: 04/10/21 Admission Dx/Problem (Free Text): Admission Diagnosis/Problem Admission Diagnosis/Problem CHF, Congestive heart failure Subjective Update: Overnight the patient became hypotensive She required IVF bolus she continues to have SOB decreased urine output and worsening renal function daughters at bedside goals of care discussed code status changed to DNR/DNI - Patient Data Vitals - Most Recent: Last Vital Signs Temp 97.9 F 04/10/21 10:19 Pulse 57 L 04/10/21 10:19 Resp 24 H 04/10/21 10:19 BP 132/93 H 04/10/21 10:19 Pulse Ox 97 04/10/21 10:19 Weight - Most Recent: 256 lb 11.2 oz I&O - Last 24 Hours: Intake & Output 04/09/21 04/10/21 04/10/21 22:59 06:59 14:59 Intake Total 820 890 Output Total 350 150 Balance 470 740 Lab Results Last 24 Hours: Laboratory Results - last 24 hr 04/09/21 04/09/21 04/09/21 Range/Units 06:02 12:47 16:21 WBC (3.98-10.04) K/mm3 RBC (3.98-5.22) M/mm3 Hgb (11.2-15.7) gm/dl Hct (34.1-44.9) % MCV (79.4-94.8) fl MCH (25.6-32.2) pg MCHC (32.2-35.5) g/dl RDW Std Deviation (36.4-46.3) fL Plt Count (182-369) K/mm3 MPV (9.4-12.3) fl Neut % (Auto) (34.0-71.1) % Lymph % (Auto) (19.3-51.7) % [place] % (Auto) (4.7-12.5) % Eos % (Auto) (0.7-5.8) Baso % (Auto) (0.1-1.2) % Neut # (Auto) (1.56-6.13) K/mm3 Lymph # (Auto) (1.18-3.74) K/mm3 [place] # (Auto) (0.24-0.36) K/mm3 Eos # (Auto) (0.04-0.36) K/mm3 Baso # (Auto) (0.01-0.08) K/mm3 Manual Slide Review Sodium (136-145) mEq/L Potassium (3.5-5.1) mEq/L Chloride (98-107) mEq/L Carbon Dioxide (21-32) mEq/L Anion Gap (5-15) BUN (7-18) mg/dL Creatinine (0.55-1.02) mg/dL Est Cr Clr Drug Dosing mL/min Estimated GFR (MDRD) (>60) mL/min BUN/Creatinine Ratio (14-18) Glucose (70-99) mg/dL POC Glucose 198 H (70-99) mg/dL Lactic Acid (0.4-2.0) mmol/L Calcium (8.5-10.1) mg/dL Troponin I < 0.017 (0.00-0.056) ng/mL Procalcitonin 0.48 H ng/mL 04/09/21 04/09/21 04/09/21 Range/Units 17:35 17:35 20:00 WBC (3.98-10.04) K/mm3 RBC (3.98-5.22) M/mm3 Hgb (11.2-15.7) gm/dl Hct (34.1-44.9) % MCV (79.4-94.8) fl MCH (25.6-32.2) pg MCHC (32.2-35.5) g/dl RDW Std Deviation (36.4-46.3) fL Plt Count (182-369) K/mm3 MPV (9.4-12.3) fl Neut % (Auto) (34.0-71.1) % Lymph % (Auto) (19.3-51.7) % [place] % (Auto) (4.7-12.5) % Eos % (Auto) (0.7-5.8) Baso % (Auto) (0.1-1.2) % Neut # (Auto) (1.56-6.13) K/mm3 Lymph # (Auto) (1.18-3.74) K/mm3 [place] # (Auto) (0.24-0.36) K/mm3 Eos # (Auto) (0.04-0.36) K/mm3 Baso # (Auto) (0.01-0.08) K/mm3 Manual Slide Review Sodium 142 (136-145) mEq/L Potassium 5.3 H (3.5-5.1) mEq/L Chloride 103 (98-107) mEq/L Carbon Dioxide 32 (21-32) mEq/L Anion Gap 12.3 (5-15) BUN 52 H (7-18) mg/dL Creatinine 2.4 H (0.55-1.02) mg/dL Est Cr Clr Drug Dosing 13.65 mL/min Estimated GFR (MDRD) 19 (>60) mL/min BUN/Creatinine Ratio 21.7 H (14-18) Glucose 214 H (70-99) mg/dL POC Glucose 211 H (70-99) mg/dL Lactic Acid 0.9 (0.4-2.0) mmol/L Calcium 8.7 (8.5-10.1) mg/dL Troponin I (0.00-0.056) ng/mL Procalcitonin ng/mL 04/10/21 04/10/21 04/10/21 Range/Units 06:35 06:48 06:48 WBC 6.25 (3.98-10.04) K/mm3 RBC 3.53 L (3.98-5.22) M/mm3 Hgb 9.4 L (11.2-15.7) gm/dl Hct 31.6 L (34.1-44.9) % MCV 89.5 (79.4-94.8) fl MCH 26.6 (25.6-32.2) pg MCHC 29.7 L (32.2-35.5) g/dl RDW Std Deviation 55.0 H (36.4-46.3) fL Plt Count 202 (182-369) K/mm3 MPV 9.8 (9.4-12.3) fl Neut % (Auto) 65.4 (34.0-71.1) % Lymph % (Auto) 16.3 L (19.3-51.7) % [place] % (Auto) 17.6 H (4.7-12.5) % Eos % (Auto) 0.2 L (0.7-5.8) Baso % (Auto) 0.2 (0.1-1.2) % Neut # (Auto) 4.09 (1.56-6.13) K/mm3 Lymph # (Auto) 1.02 L (1.18-3.74) K/mm3 [place] # (Auto) 1.10 H (0.24-0.36) K/mm3 Eos # (Auto) 0.01 L (0.04-0.36) K/mm3 Baso # (Auto) 0.01 (0.01-0.08) K/mm3 Manual Slide Review Abnormal smear Sodium 143 (136-145) mEq/L Potassium 5.3 H (3.5-5.1) mEq/L Chloride 103 (98-107) mEq/L Carbon Dioxide 31 (21-32) mEq/L Anion Gap 14.3 (5-15) BUN 61 H (7-18) mg/dL Creatinine 2.9 H (0.55-1.02) mg/dL Est Cr Clr Drug Dosing 11.30 mL/min Estimated GFR (MDRD) 16 (>60) mL/min BUN/Creatinine Ratio 21.0 H (14-18) Glucose 179 H (70-99) mg/dL POC Glucose 167 H (70-99) mg/dL Lactic Acid (0.4-2.0) mmol/L Calcium 8.4 L (8.5-10.1) mg/dL Troponin I (0.00-0.056) ng/mL Procalcitonin ng/mL 04/10/21 Range/Units 11:16 WBC (3.98-10.04) K/mm3 RBC (3.98-5.22) M/mm3 Hgb (11.2-15.7) gm/dl Hct (34.1-44.9) % MCV (79.4-94.8) fl MCH (25.6-32.2) pg MCHC (32.2-35.5) g/dl RDW Std Deviation (36.4-46.3) fL Plt Count (182-369) K/mm3 MPV (9.4-12.3) fl Neut % (Auto) (34.0-71.1) % Lymph % (Auto) (19.3-51.7) % [place] % (Auto) (4.7-12.5) % Eos % (Auto) (0.7-5.8) Baso % (Auto) (0.1-1.2) % Neut # (Auto) (1.56-6.13) K/mm3 Lymph # (Auto) (1.18-3.74) K/mm3 [place] # (Auto) (0.24-0.36) K/mm3 Eos # (Auto) (0.04-0.36) K/mm3 Baso # (Auto) (0.01-0.08) K/mm3 Manual Slide Review Sodium (136-145) mEq/L Potassium (3.5-5.1) mEq/L Chloride (98-107) mEq/L Carbon Dioxide (21-32) mEq/L Anion Gap (5-15) BUN (7-18) mg/dL Creatinine (0.55-1.02) mg/dL Est Cr Clr Drug Dosing mL/min Estimated GFR (MDRD) (>60) mL/min BUN/Creatinine Ratio (14-18) Glucose (70-99) mg/dL POC Glucose 181 H (70-99) mg/dL Lactic Acid (0.4-2.0) mmol/L Calcium (8.5-10.1) mg/dL Troponin I (0.00-0.056) ng/mL Procalcitonin ng/mL Med Orders - Current: Current Medications Acetaminophen (Acetaminophen 325 Mg Tab) 650 mg PO Q4H PRN PRN Reason: Pain (Mild 1-3)/fever Apixaban (Apixaban 5 Mg Tab) 5 mg PO BID [facility] Last Admin: 04/10/21 10:21 Dose: 5 mg Documented by: Azithromycin (Azithromycin 250 Mg Tab) 500 mg PO DAILY [facility] Last Admin: 04/10/21 10:21 Dose: 500 mg Documented by: Calcium Carbonate/Glycine (Calcium Carbonate 500 Mg Tab.Chew) 500 mg PO Q8H PRN PRN Reason: Indigestion Last Admin: 04/09/21 13:01 Dose: 500 mg Documented by: Carvedilol (Carvedilol 12.5 Mg Tab) 25 mg PO BID [facility] Last Admin: 04/10/21 10:30 Dose: Not Given Documented by: Cefdinir (Cefdinir 300 Mg Cap) 300 mg PO DAILY [facility] Last Admin: 04/10/21 10:21 Dose: 300 mg Documented by: Digoxin (Digoxin 125 Mcg Tab) 62.5 mcg PO DAILY [facility] Last Admin: 04/10/21 12:06 Dose: Not Given Documented by: Diltiazem HCl (Diltiazem 180 Mg Cap.Cd) 360 mg PO DAILY [facility] Last Admin: 04/10/21 10:30 Dose: Not Given Documented by: Ezetimibe (Ezetimibe 10 Mg Tab) 10 mg PO BEDTIME [facility] Last Admin: 04/09/21 20:13 Dose: 10 mg Documented by: Hydromorphone HCl (Hydromorphone 0.5 Mg/0.5 Ml Syringe) 0.25 mg IVPUSH Q2H PRN PRN Reason: Pain (moderate 4-6) Hydroxychloroquine Sulfate (Hydroxychloroquine 200 Mg Tab) 200 mg PO DAILY [facility] Last Admin: 04/10/21 10:21 Dose: 200 mg Documented by: Furosemide 100 mg/ Sodium (Chloride) 100 mls @ 5 mls/hr IV TITRATE [facility]; Protocol Albumin Human 12.5 gm/ Premix 50 mls @ 50 mls/hr IV ONETIME ONE Stop: 04/10/21 13:03 Last Admin: 04/10/21 12:21 Dose: 50 mls/hr Documented by: Insulin Glargine (Insulin Glarg,Human.Rec.Analog 100 Unit/Ml) 23 unit SUBCUT BID [facility] Last Admin: 04/10/21 10:22 Dose: 23 units Documented by: Insulin Human Lispro (Insulin Lispro 100 Unit/Ml 10 Ml Vial) 0 unit SUBCUT QIDACANDBED [facility]; Protocol Last Admin: 04/10/21 10:29 Dose: Not Given Documented by: Lorazepam (Lorazepam 0.5 Mg Tab) 0.25 mg PO Q12H PRN PRN Reason: Anxiety Magnesium Oxide (Magnesium Oxide 400 Mg Tab) 400 mg PO DAILY [facility] Last Admin: 04/10/21 10:22 Dose: 400 mg Documented by: Melatonin (Melatonin 3 Mg Tab) 3 mg PO BEDTIME [facility] Last Admin: 04/09/21 20:13 Dose: 3 mg Documented by: Methylprednisolone Sodium Succinate (Methylprednisolone Sodium Succinate 40 Mg/1 Ml Sdv) 40 mg IVPUSH Q8H [facility] Last Admin: 04/10/21 12:16 Dose: 40 mg Documented by: Nitroglycerin (Nitroglycerin 0.4 Mg Tab.Sl) 0.4 mg SL Q5M PRN PRN Reason: Chest Pain Ondansetron HCl (Ondansetron 4 Mg/2 Ml Sdv) 4 mg IV Q4H PRN PRN Reason: Nausea/Vomiting Last Admin: 04/09/21 13:00 Dose: 4 mg Documented by: Pantoprazole Sodium (Pantoprazole 40 Mg Tab.Cr) 40 mg PO DAILY [facility] Last Admin: 04/10/21 10:22 Dose: 40 mg Documented by: Leflunomide 20 Mg (Tablet Ptom) 0 each PO DAILY [facility] Last Admin: 04/10/21 11:17 Dose: 1 each Documented by: Pravastatin Sodium (Pravastatin 20 Mg Tab) 40 mg PO BEDTIME [facility] Last Admin: 04/09/21 20:13 Dose: 40 mg Documented by: Prednisone (Prednisone 1 Mg Tab) 1 mg PO DAILY [facility] Last Admin: 04/10/21 10:22 Dose: 1 mg Documented by: Sodium Chloride (Sodium Chloride 0.9% 10 Ml Syringe) 10 ml FLUSH ASDIRECTED PRN PRN Reason: Keep Vein Open Last Admin: 04/08/21 18:50 Dose: 10 ml Documented by: Discontinued Medications Furosemide (Furosemide 40 Mg/4 Ml Vial) 40 mg IVPUSH DAILY [facility] Last Admin: 04/09/21 09:45 Dose: 40 mg Documented by: Furosemide (Furosemide 40 Mg/4 Ml Vial) 40 mg IVPUSH 1600 [facility] Last Admin: 04/09/21 16:29 Dose: 40 mg Documented by: Furosemide (Furosemide 20 Mg/2 Ml Vial) 20 mg IVPUSH 1600 [facility] Sodium Chloride (Normal Saline) 500 mls @ 125 mls/hr IV .BOLUS ONE Stop: 04/09/21 22:23 Last Admin: 04/09/21 18:46 Dose: 125 mls/hr Documented by: Albumin Human 12.5 gm/ Premix 50 mls @ 50 mls/hr IV Q1H [facility] Last Admin: 04/09/21 19:07 Dose: Not Given Documented by: Albumin Human 12.5 gm/ Premix 50 mls @ 50 mls/hr IV ONETIME ONE Stop: 04/09/21 19:35 Last Admin: 04/09/21 18:46 Dose: 50 mls/hr Documented by: Lactated Ringer's (Ringers, Lactated) 500 mls @ 250 mls/hr IV ONETIME ONE Stop: 04/10/21 00:29 Last Admin: 04/10/21 01:12 Dose: 250 mls/hr Documented by: Albumin Human 12.5 gm/ Premix 50 mls @ 50 mls/hr IV ONETIME ONE Stop: 04/10/21 08:14 Last Admin: 04/10/21 07:30 Dose: 50 mls/hr Documented by: Sodium Chloride (Normal Saline) 1,000 mls @ 125 mls/hr IV ASDIRECTED CJ Stop: 04/10/21 11:46 Sodium Chloride (Normal Saline) 500 mls @ 125 mls/hr IV ASDIRECTED CJ Stop: 04/10/21 12:21 Last Admin: 04/10/21 08:29 Dose: 125 mls/hr Documented by: Albumin Human 12.5 gm/ Premix 50 mls @ 50 mls/hr IV Q1H CJ Morphine Sulfate (Morphine 2 Mg/Ml Syringe) 2 mg IVPUSH ONETIME ONE Stop: 04/08/21 19:29 Last Admin: 04/08/21 19:46 Dose: 2 mg Documented by: Morphine Sulfate (Morphine 2 Mg/Ml Syringe) 2 mg IVPUSH ONETIME ONE Stop: 04/08/21 20:38 Last Admin: 04/08/21 20:47 Dose: 2 mg Documented by: Morphine Sulfate (Morphine 2 Mg/Ml Syringe) 2 mg IVPUSH ONETIME ONE Stop: 04/09/21 00:18 Last Admin: 04/09/21 00:22 Dose: 2 mg Documented by: Morphine Sulfate (Morphine 2 Mg/Ml Syringe) 2 mg IVPUSH Q1H PRN PRN Reason: Chest Pain Last Admin: 04/09/21 13:01 Dose: 2 mg Documented by: Morphine Sulfate (Morphine 2 Mg/Ml Syringe) Confirm Administered Dose 2 mg .ROUTE .STK-MED ONE Stop: 04/09/21 05:01 Last Admin: 04/09/21 05:15 Dose: Not Given Documented by: Leflunomide 20 Mg (Tablet) 0 each PO DAILY [facility] Last Admin: 04/10/21 11:12 Dose: Not Given Documented by: Potassium Chloride (Potassium Chloride 10 Meq Tab.Er) 10 meq PO DAILY [facility]J - Exam Urinary Catheter Total Time: 0Days 16Hours Physical Findings Comments:: Gen: elderly obese female in no acute distress HEENT: NCAT EOMI MMM CV: IRIR normal s1 s2 Lungs: Diminished breath sounds Abd: Soft, nt, nd Neuro: AOX3, nonfocal screening exam Psych: appropriate affect ext: 3+ bilateral lower extremity edema MSK: age appropriate muscle mass Rodriguez in place - Patient Data Lab Results Last 24 hrs: Laboratory Results - last 24 hr 04/09/21 04/09/21 04/09/21 Range/Units 06:02 12:47 16:21 WBC (3.98-10.04) K/mm3 RBC (3.98-5.22) M/mm3 Hgb (11.2-15.7) gm/dl Hct (34.1-44.9) % MCV (79.4-94.8) fl MCH (25.6-32.2) pg MCHC (32.2-35.5) g/dl RDW Std Deviation (36.4-46.3) fL Plt Count (182-369) K/mm3 MPV (9.4-12.3) fl Neut % (Auto) (34.0-71.1) % Lymph % (Auto) (19.3-51.7) % [place] % (Auto) (4.7-12.5) % Eos % (Auto) (0.7-5.8) Baso % (Auto) (0.1-1.2) % Neut # (Auto) (1.56-6.13) K/mm3 Lymph # (Auto) (1.18-3.74) K/mm3 [place] # (Auto) (0.24-0.36) K/mm3 Eos # (Auto) (0.04-0.36) K/mm3 Baso # (Auto) (0.01-0.08) K/mm3 Manual Slide Review Sodium (136-145) mEq/L Potassium (3.5-5.1) mEq/L Chloride (98-107) mEq/L Carbon Dioxide (21-32) mEq/L Anion Gap (5-15) BUN (7-18) mg/dL Creatinine (0.55-1.02) mg/dL Est Cr Clr Drug Dosing mL/min Estimated GFR (MDRD) (>60) mL/min BUN/Creatinine Ratio (14-18) Glucose (70-99) mg/dL POC Glucose 198 H (70-99) mg/dL Lactic Acid (0.4-2.0) mmol/L Calcium (8.5-10.1) mg/dL Troponin I < 0.017 (0.00-0.056) ng/mL Procalcitonin 0.48 H ng/mL 04/09/21 04/09/21 04/09/21 Range/Units 17:35 17:35 20:00 WBC (3.98-10.04) K/mm3 RBC (3.98-5.22) M/mm3 Hgb (11.2-15.7) gm/dl Hct (34.1-44.9) % MCV (79.4-94.8) fl MCH (25.6-32.2) pg MCHC (32.2-35.5) g/dl RDW Std Deviation (36.4-46.3) fL Plt Count (182-369) K/mm3 MPV (9.4-12.3) fl Neut % (Auto) (34.0-71.1) % Lymph % (Auto) (19.3-51.7) % [place] % (Auto) (4.7-12.5) % Eos % (Auto) (0.7-5.8) Baso % (Auto) (0.1-1.2) % Neut # (Auto) (1.56-6.13) K/mm3 Lymph # (Auto) (1.18-3.74) K/mm3 [place] # (Auto) (0.24-0.36) K/mm3 Eos # (Auto) (0.04-0.36) K/mm3 Baso # (Auto) (0.01-0.08) K/mm3 Manual Slide Review Sodium 142 (136-145) mEq/L Potassium 5.3 H (3.5-5.1) mEq/L Chloride 103 (98-107) mEq/L Carbon Dioxide 32 (21-32) mEq/L Anion Gap 12.3 (5-15) BUN 52 H (7-18) mg/dL Creatinine 2.4 H (0.55-1.02) mg/dL Est Cr Clr Drug Dosing 13.65 mL/min Estimated GFR (MDRD) 19 (>60) mL/min BUN/Creatinine Ratio 21.7 H (14-18) Glucose 214 H (70-99) mg/dL POC Glucose 211 H (70-99) mg/dL Lactic Acid 0.9 (0.4-2.0) mmol/L Calcium 8.7 (8.5-10.1) mg/dL Troponin I (0.00-0.056) ng/mL Procalcitonin ng/mL 04/10/21 04/10/21 04/10/21 Range/Units 06:35 06:48 06:48 WBC 6.25 (3.98-10.04) K/mm3 RBC 3.53 L (3.98-5.22) M/mm3 Hgb 9.4 L (11.2-15.7) gm/dl Hct 31.6 L (34.1-44.9) % MCV 89.5 (79.4-94.8) fl MCH 26.6 (25.6-32.2) pg MCHC 29.7 L (32.2-35.5) g/dl RDW Std Deviation 55.0 H (36.4-46.3) fL Plt Count 202 (182-369) K/mm3 MPV 9.8 (9.4-12.3) fl Neut % (Auto) 65.4 (34.0-71.1) % Lymph % (Auto) 16.3 L (19.3-51.7) % [place] % (Auto) 17.6 H (4.7-12.5) % Eos % (Auto) 0.2 L (0.7-5.8) Baso % (Auto) 0.2 (0.1-1.2) % Neut # (Auto) 4.09 (1.56-6.13) K/mm3 Lymph # (Auto) 1.02 L (1.18-3.74) K/mm3 [place] # (Auto) 1.10 H (0.24-0.36) K/mm3 Eos # (Auto) 0.01 L (0.04-0.36) K/mm3 Baso # (Auto) 0.01 (0.01-0.08) K/mm3 Manual Slide Review Abnormal smear Sodium 143 (136-145) mEq/L Potassium 5.3 H (3.5-5.1) mEq/L Chloride 103 (98-107) mEq/L Carbon Dioxide 31 (21-32) mEq/L Anion Gap 14.3 (5-15) BUN 61 H (7-18) mg/dL Creatinine 2.9 H (0.55-1.02) mg/dL Est Cr Clr Drug Dosing 11.30 mL/min Estimated GFR (MDRD) 16 (>60) mL/min BUN/Creatinine Ratio 21.0 H (14-18) Glucose 179 H (70-99) mg/dL POC Glucose 167 H (70-99) mg/dL Lactic Acid (0.4-2.0) mmol/L Calcium 8.4 L (8.5-10.1) mg/dL Troponin I (0.00-0.056) ng/mL Procalcitonin ng/mL 04/10/21 Range/Units 11:16 WBC (3.98-10.04) K/mm3 RBC (3.98-5.22) M/mm3 Hgb (11.2-15.7) gm/dl Hct (34.1-44.9) % MCV (79.4-94.8) fl MCH (25.6-32.2) pg MCHC (32.2-35.5) g/dl RDW Std Deviation (36.4-46.3) fL Plt Count (182-369) K/mm3 MPV (9.4-12.3) fl Neut % (Auto) (34.0-71.1) % Lymph % (Auto) (19.3-51.7) % [place] % (Auto) (4.7-12.5) % Eos % (Auto) (0.7-5.8) Baso % (Auto) (0.1-1.2) % Neut # (Auto) (1.56-6.13) K/mm3 Lymph # (Auto) (1.18-3.74) K/mm3 [place] # (Auto) (0.24-0.36) K/mm3 Eos # (Auto) (0.04-0.36) K/mm3 Baso # (Auto) (0.01-0.08) K/mm3 Manual Slide Review Sodium (136-145) mEq/L Potassium (3.5-5.1) mEq/L Chloride (98-107) mEq/L Carbon Dioxide (21-32) mEq/L Anion Gap (5-15) BUN (7-18) mg/dL Creatinine (0.55-1.02) mg/dL Est Cr Clr Drug Dosing mL/min Estimated GFR (MDRD) (>60) mL/min BUN/Creatinine Ratio (14-18) Glucose (70-99) mg/dL POC Glucose 181 H (70-99) mg/dL Lactic Acid (0.4-2.0) mmol/L Calcium (8.5-10.1) mg/dL Troponin I (0.00-0.056) ng/mL Procalcitonin ng/mL Result Diagrams: 04/10/21 06:48 04/10/21 06:48 Sepsis Event Note - Evaluation Sepsis Screening Result: No Definite Risk - Focused Exam Vital Signs: Vital Signs Temp Pulse Resp BP Pulse Ox 04/10/21 10:19 97.9 F 57 L 24 H 132/93 H 97 04/10/21 03:17 60 18 108/71 96 - Problem List Review Problem List Initiated/Reviewed/Updated: Yes - My Orders Last 24 Hours: My Active Orders 04/09/21 12:38 Calcium Carbonate [Tums] 500 mg PO Q8H PRN 04/09/21 12:39 EKG 12 Lead [EK] Routine 04/09/21 16:11 CPAP Adult [RT BiPAP/CPAP] [RC] ASDIRECTED 04/09/21 16:15 predniSONE 1 mg PO DAILY 04/09/21 16:30 Azithromycin [Zithromax] 500 mg PO DAILY Cefdinir [Omnicef] 300 mg PO DAILY 04/09/21 Dinner Heart Healthy Diet [DIET] 04/09/21 17:23 HYDROmorphone [Dilaudid] 0.25 mg IVPUSH Q2H PRN 04/09/21 17:24 Urinary Catheter Assessment [RC] 04,10,16,22 04/09/21 17:30 Insert Rodriguez Catheter [Insert Urinary Catheter] [OM.PC] Q24H 04/09/21 21:00 Ezetimibe [Zetia] 10 mg PO BEDTIME Melatonin 3 mg PO BEDTIME Pravastatin [Pravachol] 40 mg PO BEDTIME 04/10/21 08:00 Kidney Ultrasound [Retroperitoneal Comp] [US] Routine Venous Doppler Lwr Ext Bi [US] Routine 04/10/21 09:00 Magnesium Oxide 400 mg PO DAILY 04/10/21 09:20 Chest wo Cont [CT] Routine 04/10/21 11:00 Patient's Own Medication [Ptom] 0 each PO DAILY 04/10/21 11:54 Code Status [Resuscitation Status] Routine 04/10/21 12:00 Furosemide [Lasix] 100 mg Sodium Chloride 0.9% [Normal Saline] 90 ml IV TITRATE LORazepam [Ativan] 0.25 mg PO Q12H PRN 04/10/21 12:05 Albumin 25% [Flexbumin 25%] 12.5 gm Premix Bag 1 bag IV ONETIME 04/10/21 13:00 methylPREDNISolone Sod Succ [Solu-MEDROL] 40 mg IVPUSH Q8H 04/10/21 15:00 BASIC METABOLIC PANEL,BMP [CHEM] Routine PROCALCITONIN [REF] Routine 04/11/21 06:00 BASIC METABOLIC PANEL,BMP [CHEM] DAILY CBC WITH AUTO DIFF [HEME] DAILY 04/12/21 06:00 BASIC METABOLIC PANEL,BMP [CHEM] DAILY CBC WITH AUTO DIFF [HEME] DAILY - Plan Plan:: Assessment: This 80-year-old female with multiple medical problems including atrial fibrillation, heart failure, UT/NSTEMI, pulmonary hypertension, peripheral vascular disease, aortic stenosis, cor pulmonale, LEILANI, rheumatoid arthritis, insulin-dependent diabetes presenting for evaluation of chest pain and sob. The patient endorses pleuritic intermittent chest pain and SOB. CXR concerning for CHF vs PNA, EKG with Afib, Trop WNL, BNP elevated. 1. Pleuritic chest pain/SOB; suspected acute CHF exacerbation vs PNA; PE less likely as patient anticoagulated; CT chest showing bilateral pleural effusion 2. Hx of CAD/NSTEMI/Pulm HTN 3. Hx of Atrial Fibrillation 4. Hx of Peripheral vascular disease 5. Acute renal failure/Hx of CKD Stage III 6. Hx of LEILANI on nocturnal bipap 7. Chronic hypoxic respiratory failure; baseline oxygen requirements 2-6 liters 8. Hx of Rheumatoid Arthritis 9. Hx of Insulin dependent Type II DM 10. Anemia of chronic kidney disease Plan -Goals of care discussed with patient and daughter -patient does not want transfer to higher level care for nephrology consult/cardiology consult -states she would not want dialysis if kidney failure progresses -does not want further imaging studies/thoracentesis -not yet ready for comfort care -her main goal is to improve SOB but realizes that this may not be feasible -she states she is ready to if the time has come and she has been able to visit with family and grandkids -her current requests is to stop IVF, try lasix while understanding that renal function may worsen -patient agreeable to reassess Goals of care within 24 hours for hospice consideration -echo completed; pending -lower extremity doppler venous US negative for dvt -check procal -continue omnicef/azithromycin -start IV lasix drip -daily weight -I&O -renal US completed -unable to obtain CT PE study due to renal function; unable to obtain Vq scan till Monday -continue anticoagulation -given hypotension holding antihypertensives and starting solumedrol -discontinue tele per patient request Code status-DNR/DNI DVT PPx -on eliquis Dispo-estimated discharge in 2-3 days;
[2021-04-10] MEDS ORDERED: methylPREDNISolone Sodium Succinate 40 MG/1 ML SDV IVPUSH SCH (13:00)
[2021-04-10] MEDS: Furosemide 100 MG in Sodium Chloride 0.9% 90 ML IV SCH (13:14)
[2021-04-10] MEDS ORDERED: Furosemide 20 MG/2 ML VIAL IVPUSH SCH (16:00)
[2021-04-10] MEDS: LORazepam 2 MG/ML SDV IVPUSH PRN (18:54)
[2021-04-10] MEDS: Melatonin 3 MG Tab PO SCH (21:15)
[2021-04-11] MEDS: Furosemide 100 MG in Sodium Chloride 0.9% 90 ML IV SCH (07:04)
[2021-04-11] MEDS ORDERED: Sennosides 8.6 MG Tab PO PRN (07:40)
[2021-04-11] MEDS: Insulin Glarg,Human.Rec.Analog 100 Unit/ML SUBCUT SCH ×2 (08:07→20:42)
[2021-04-11] MEDS: Insulin Lispro 100 UNIT/ML 10 ML Vial SUBCUT SCH ×5 (08:07→21:25)
[2021-04-11] MEDS: Docusate Sodium 100 MG Cap PO PRN (08:08)
[2021-04-11] MEDS: Cefdinir 300 MG Cap PO SCH (08:08)
[2021-04-11] MEDS: Pantoprazole 40 MG Tab.CR PO SCH (08:09)
[2021-04-11] MEDS: Azithromycin 250 MG Tab PO SCH (08:09)
[2021-04-11] MEDS: Magnesium Oxide 400 MG Tab PO SCH (08:10)
[2021-04-11] MEDS: Diltiazem 180 MG Cap.CD PO SCH (08:10)
[2021-04-11] MEDS: Digoxin 125 MCG Tab PO SCH (08:11)
[2021-04-11] MEDS: Hydroxychloroquine 200 MG Tab PO SCH (08:11)
[2021-04-11] MEDS: Leflunomide 20 MG Tablet **PTOM PO SCH (08:17)
[2021-04-11] MEDS ORDERED: Magnesium Oxide 400 MG Tab PO ONE (08:48)
--- NOTE | 2021-04-11 11:01 | PCM.PN ---
- General Info Date of Service: 04/11/21 Admission Dx/Problem (Free Text): Admission Diagnosis/Problem Admission Diagnosis/Problem CHF, Congestive heart failure Subjective Update: family at bedside patient transitioned to comfort care yesterday afternoon urine output has increased SOB improved compared to yesterday was able to sleep better last night - Patient Data Vitals - Most Recent: Last Vital Signs Temp 98.1 F 04/11/21 08:13 Pulse 89 04/11/21 08:13 Resp 18 04/11/21 08:13 BP 142/79 H 04/11/21 08:13 Pulse Ox 96 04/11/21 08:13 Weight - Most Recent: 254 lb 14.4 oz I&O - Last 24 Hours: Intake & Output 04/10/21 04/11/21 04/11/21 22:59 06:59 14:59 Intake Total 903 270 Output Total 100 975 Balance 803 -705 Lab Results Last 24 Hours: Laboratory Results - last 24 hr 04/10/21 04/10/21 04/10/21 Range/Units 11:16 15:00 15:00 Sodium 140 (136-145) mEq/L Potassium 5.2 H (3.5-5.1) mEq/L Chloride 102 (98-107) mEq/L Carbon Dioxide 28 (21-32) mEq/L Anion Gap 15.2 H (5-15) BUN 65 H (7-18) mg/dL Creatinine 3.1 H (0.55-1.02) mg/dL Est Cr Clr Drug Dosing 10.57 mL/min Estimated GFR (MDRD) 14 (>60) mL/min BUN/Creatinine Ratio 21.0 H (14-18) Glucose 183 H (70-99) mg/dL POC Glucose 181 H (70-99) mg/dL Calcium 8.3 L (8.5-10.1) mg/dL Magnesium (1.8-2.4) mg/dL Procalcitonin 0.76 H ng/mL 04/10/21 04/11/21 Range/Units 15:00 06:45 Sodium (136-145) mEq/L Potassium (3.5-5.1) mEq/L Chloride (98-107) mEq/L Carbon Dioxide (21-32) mEq/L Anion Gap (5-15) BUN (7-18) mg/dL Creatinine (0.55-1.02) mg/dL Est Cr Clr Drug Dosing mL/min Estimated GFR (MDRD) (>60) mL/min BUN/Creatinine Ratio (14-18) Glucose (70-99) mg/dL POC Glucose 177 H (70-99) mg/dL Calcium (8.5-10.1) mg/dL Magnesium 2.5 H (1.8-2.4) mg/dL Procalcitonin ng/mL Valerio Results Last 24 Hours: Microbiology 04/08/21 21:04 Urine Culture - Final Urine Med Orders - Current: Current Medications Acetaminophen (Acetaminophen 325 Mg Tab) 650 mg PO Q4H PRN PRN Reason: Pain (Mild 1-3)/fever Azithromycin (Azithromycin 250 Mg Tab) 500 mg PO DAILY [facility] Last Admin: 04/11/21 08:09 Dose: 500 mg Documented by: Cefdinir (Cefdinir 300 Mg Cap) 300 mg PO DAILY [facility] Last Admin: 04/11/21 08:08 Dose: 300 mg Documented by: Digoxin (Digoxin 125 Mcg Tab) 62.5 mcg PO DAILY [facility] Last Admin: 04/11/21 08:11 Dose: 62.5 mcg Documented by: Diltiazem HCl (Diltiazem 180 Mg Cap.Cd) 360 mg PO DAILY [facility] Last Admin: 04/11/21 08:10 Dose: 360 mg Documented by: Docusate Sodium (Docusate Sodium 100 Mg Cap) 100 mg PO BID PRN PRN Reason: Constipation Last Admin: 04/11/21 08:08 Dose: 100 mg Documented by: Furosemide (Furosemide 20 Mg/2 Ml Vial) 20 mg IVPUSH TID [facility] Hydromorphone HCl (Hydromorphone 0.5 Mg/0.5 Ml Syringe) 0.25 mg IVPUSH Q2H PRN PRN Reason: Pain (moderate 4-6) Hydroxychloroquine Sulfate (Hydroxychloroquine 200 Mg Tab) 200 mg PO DAILY [facility] Last Admin: 04/11/21 08:11 Dose: 200 mg Documented by: Furosemide 100 mg/ Sodium (Chloride) 100 mls @ 5 mls/hr IV TITRATE [facility]; Protocol Last Admin: 04/11/21 07:04 Dose: 5 mg/hr, 5 mls/hr Documented by: Insulin Glargine (Insulin Glarg,Human.Rec.Analog 100 Unit/Ml) 23 unit SUBCUT BID [facility] Last Admin: 04/11/21 08:07 Dose: 23 units Documented by: Insulin Human Lispro (Insulin Lispro 100 Unit/Ml 10 Ml Vial) 0 unit SUBCUT QIDACANDBED [facility]; Protocol Last Admin: 04/11/21 08:07 Dose: 2 unit Documented by: Lorazepam (Lorazepam 2 Mg/Ml Sdv) 0.5 mg IVPUSH Q3H PRN PRN Reason: Anxiety Last Admin: 04/10/21 18:54 Dose: 0.5 mg Documented by: Magnesium Oxide (Magnesium Oxide 400 Mg Tab) 400 mg PO DAILY [facility] Last Admin: 04/11/21 08:10 Dose: 400 mg Documented by: Magnesium Oxide (Magnesium Oxide 400 Mg Tab) 400 mg PO ONETIME ONE Stop: 04/11/21 08:49 Melatonin (Melatonin 3 Mg Tab) 3 mg PO BEDTIME [facility] Last Admin: 04/10/21 21:15 Dose: Not Given Documented by: Nitroglycerin (Nitroglycerin 0.4 Mg Tab.Sl) 0.4 mg SL Q5M PRN PRN Reason: Chest Pain Ondansetron HCl (Ondansetron 4 Mg/2 Ml Sdv) 4 mg IV Q4H PRN PRN Reason: Nausea/Vomiting Last Admin: 04/09/21 13:00 Dose: 4 mg Documented by: Pantoprazole Sodium (Pantoprazole 40 Mg Tab.Cr) 40 mg PO DAILY [facility] Last Admin: 04/11/21 08:09 Dose: 40 mg Documented by: Leflunomide 20 Mg (Tablet Ptom) 0 each PO DAILY [facility] Last Admin: 04/11/21 08:17 Dose: 1 each Documented by: Potassium Chloride (Potassium Chloride 20 Meq Tab.Er) 20 meq PO BID [facility] Senna (Sennosides 8.6 Mg Tab) 8.6 mg PO DAILY PRN PRN Reason: Constipation Sodium Chloride (Sodium Chloride 0.9% 10 Ml Syringe) 10 ml FLUSH ASDIRECTED PRN PRN Reason: Keep Vein Open Last Admin: 04/08/21 18:50 Dose: 10 ml Documented by: Discontinued Medications Apixaban (Apixaban 5 Mg Tab) 5 mg PO BID [facility] Last Admin: 04/10/21 10:21 Dose: 5 mg Documented by: Calcium Carbonate/Glycine (Calcium Carbonate 500 Mg Tab.Chew) 500 mg PO Q8H PRN PRN Reason: Indigestion Last Admin: 04/09/21 13:01 Dose: 500 mg Documented by: Carvedilol (Carvedilol 12.5 Mg Tab) 25 mg PO BID [facility] Last Admin: 04/10/21 10:30 Dose: Not Given Documented by: Ezetimibe (Ezetimibe 10 Mg Tab) 10 mg PO BEDTIME [facility] Last Admin: 04/09/21 20:13 Dose: 10 mg Documented by: Furosemide (Furosemide 40 Mg/4 Ml Vial) 40 mg IVPUSH DAILY [facility] Last Admin: 04/09/21 09:45 Dose: 40 mg Documented by: Furosemide (Furosemide 40 Mg/4 Ml Vial) 40 mg IVPUSH 1600 [facility] Last Admin: 04/09/21 16:29 Dose: 40 mg Documented by: Furosemide (Furosemide 20 Mg/2 Ml Vial) 20 mg IVPUSH 1600 [facility] Sodium Chloride (Normal Saline) 500 mls @ 125 mls/hr IV .BOLUS ONE Stop: 04/09/21 22:23 Last Admin: 04/09/21 18:46 Dose: 125 mls/hr Documented by: Albumin Human 12.5 gm/ Premix 50 mls @ 50 mls/hr IV Q1H [facility] Last Admin: 04/09/21 19:07 Dose: Not Given Documented by: Albumin Human 12.5 gm/ Premix 50 mls @ 50 mls/hr IV ONETIME ONE Stop: 04/09/21 19:35 Last Admin: 04/09/21 18:46 Dose: 50 mls/hr Documented by: Lactated Ringer's (Ringers, Lactated) 500 mls @ 250 mls/hr IV ONETIME ONE Stop: 04/10/21 00:29 Last Admin: 04/10/21 01:12 Dose: 250 mls/hr Documented by: Albumin Human 12.5 gm/ Premix 50 mls @ 50 mls/hr IV ONETIME ONE Stop: 04/10/21 08:14 Last Admin: 04/10/21 07:30 Dose: 50 mls/hr Documented by: Sodium Chloride (Normal Saline) 1,000 mls @ 125 mls/hr IV ASDIRECTED [facility] Stop: 04/10/21 11:46 Sodium Chloride (Normal Saline) 500 mls @ 125 mls/hr IV ASDIRECTED [facility] Stop: 04/10/21 12:21 Last Admin: 04/10/21 08:29 Dose: 125 mls/hr Documented by: Albumin Human 12.5 gm/ Premix 50 mls @ 50 mls/hr IV Q1H [facility] Last Admin: 04/10/21 16:58 Dose: Not Given Documented by: Albumin Human 12.5 gm/ Premix 50 mls @ 50 mls/hr IV ONETIME ONE Stop: 04/10/21 13:03 Last Admin: 04/10/21 12:21 Dose: 50 mls/hr Documented by: Lorazepam (Lorazepam 0.5 Mg Tab) 0.25 mg PO Q12H PRN PRN Reason: Anxiety Methylprednisolone Sodium Succinate (Methylprednisolone Sodium Succinate 40 Mg/1 Ml Sdv) 40 mg IVPUSH Q8H [facility] Last Admin: 04/10/21 12:16 Dose: 40 mg Documented by: Morphine Sulfate (Morphine 2 Mg/Ml Syringe) 2 mg IVPUSH ONETIME ONE Stop: 04/08/21 19:29 Last Admin: 04/08/21 19:46 Dose: 2 mg Documented by: Morphine Sulfate (Morphine 2 Mg/Ml Syringe) 2 mg IVPUSH ONETIME ONE Stop: 04/08/21 20:38 Last Admin: 04/08/21 20:47 Dose: 2 mg Documented by: Morphine Sulfate (Morphine 2 Mg/Ml Syringe) 2 mg IVPUSH ONETIME ONE Stop: 04/09/21 00:18 Last Admin: 04/09/21 00:22 Dose: 2 mg Documented by: Morphine Sulfate (Morphine 2 Mg/Ml Syringe) 2 mg IVPUSH Q1H PRN PRN Reason: Chest Pain Last Admin: 04/09/21 13:01 Dose: 2 mg Documented by: Morphine Sulfate (Morphine 2 Mg/Ml Syringe) Confirm Administered Dose 2 mg .ROUTE .STK-MED ONE Stop: 04/09/21 05:01 Last Admin: 04/09/21 05:15 Dose: Not Given Documented by: Leflunomide 20 Mg (Tablet) 0 each PO DAILY [facility] Last Admin: 04/10/21 11:12 Dose: Not Given Documented by: Potassium Chloride (Potassium Chloride 10 Meq Tab.Er) 10 meq PO DAILY [facility] Pravastatin Sodium (Pravastatin 20 Mg Tab) 40 mg PO BEDTIME [facility] Last Admin: 04/09/21 20:13 Dose: 40 mg Documented by: Prednisone (Prednisone 1 Mg Tab) 1 mg PO DAILY [facility] Last Admin: 04/10/21 10:22 Dose: 1 mg Documented by: - Exam Urinary Catheter Total Time: 1Days 14Hours Physical Findings Comments:: Gen: No acute distress HEENT: NCAT EOMI Neck: Supple Neuro: Alert and oriented; at baseline state MSK: age appropriate muscle mass Pscyh: Pleasant affect - Patient Data Lab Results Last 24 hrs: Laboratory Results - last 24 hr 04/10/21 04/10/21 04/10/21 Range/Units 11:16 15:00 15:00 Sodium 140 (136-145) mEq/L Potassium 5.2 H (3.5-5.1) mEq/L Chloride 102 (98-107) mEq/L Carbon Dioxide 28 (21-32) mEq/L Anion Gap 15.2 H (5-15) BUN 65 H (7-18) mg/dL Creatinine 3.1 H (0.55-1.02) mg/dL Est Cr Clr Drug Dosing 10.57 mL/min Estimated GFR (MDRD) 14 (>60) mL/min BUN/Creatinine Ratio 21.0 H (14-18) Glucose 183 H (70-99) mg/dL POC Glucose 181 H (70-99) mg/dL Calcium 8.3 L (8.5-10.1) mg/dL Magnesium (1.8-2.4) mg/dL Procalcitonin 0.76 H ng/mL 04/10/21 04/11/21 Range/Units 15:00 06:45 Sodium (136-145) mEq/L Potassium (3.5-5.1) mEq/L Chloride (98-107) mEq/L Carbon Dioxide (21-32) mEq/L Anion Gap (5-15) BUN (7-18) mg/dL Creatinine (0.55-1.02) mg/dL Est Cr Clr Drug Dosing mL/min Estimated GFR (MDRD) (>60) mL/min BUN/Creatinine Ratio (14-18) Glucose (70-99) mg/dL POC Glucose 177 H (70-99) mg/dL Calcium (8.5-10.1) mg/dL Magnesium 2.5 H (1.8-2.4) mg/dL Procalcitonin ng/mL Result Diagrams: 04/10/21 06:48 04/10/21 15:00 Valerio Results Last 24 hrs: Microbiology 04/08/21 21:04 Urine Culture - Final Urine Sepsis Event Note - Evaluation Sepsis Screening Result: No Definite Risk - Focused Exam Vital Signs: Vital Signs Temp Pulse Resp BP Pulse Ox 04/11/21 08:13 98.1 F 89 18 142/79 H 96 04/11/21 08:11 89 - Problem List Review Problem List Initiated/Reviewed/Updated: Yes - My Orders Last 24 Hours: My Active Orders 04/10/21 11:00 Patient's Own Medication [Ptom] 0 each PO DAILY 04/10/21 12:00 Furosemide [Lasix] 100 mg Sodium Chloride 0.9% [Normal Saline] 90 ml IV TITRATE 04/10/21 17:43 Comfort Measures [OM.PC] Routine 04/10/21 18:08 LORazepam [Ativan] 0.5 mg IVPUSH Q3H PRN 04/10/21 19:44 Patient Status [ADT] Routine 04/11/21 Breakfast Adult Diet [DIET] 04/11/21 07:39 Docusate Sodium [Colace] 100 mg PO BID PRN 04/11/21 07:40 Sennosides [Senna] 8.6 mg PO DAILY PRN 04/11/21 08:48 Magnesium Oxide 400 mg PO ONETIME ONE 04/11/21 09:00 Potassium Chloride [Klor-Con M20] 20 meq PO BID 04/11/21 09:23 Resuscitation Status Routine 04/11/21 15:00 Furosemide [Lasix] 20 mg IVPUSH TID 04/12/21 07:00 predniSONE 1 mg PO WITHBREAKFAST - Plan Plan:: Assessment: This 80-year-old female with multiple medical problems including atrial fibrillation, heart failure, HI/NSTEMI, pulmonary hypertension, peripheral vascular disease, aortic stenosis, cor pulmonale, LEILANI, rheumatoid arthritis, insulin-dependent diabetes presenting for evaluation of chest pain and sob. The patient endorses pleuritic intermittent chest pain and SOB. CXR concerning for CHF vs PNA, EKG with Afib, Trop WNL, BNP elevated. 1. Pleuritic chest pain/SOB; suspected acute CHF exacerbation vs PNA; PE less likely as patient anticoagulated; CT chest showing bilateral pleural effusion 2. Hx of CAD/NSTEMI/Pulm HTN 3. Hx of Atrial Fibrillation 4. Hx of Peripheral vascular disease 5. Acute renal failure/Hx of CKD Stage III 6. Hx of LEILANI on nocturnal bipap 7. Chronic hypoxic respiratory failure; baseline oxygen requirements 2-6 liters 8. Hx of Rheumatoid Arthritis 9. Hx of Insulin dependent Type II DM 10. Anemia of chronic kidney disease Plan -Goals of care discussed with patient and daughter 04/11 and transitioned to comfort care -patient does not want transfer to higher level care for nephrology consult/cardiology consult -states she would not want dialysis if kidney failure progresses -does not want further imaging studies/thoracentesis/blood tests -her main goal is to improve SOB but realizes that this may not be feasible -she states she is ready to if the time has come and she has been able to visit with family and grandkids -her current requests is to stop IVF, try lasix while understanding that renal function may worsen -SW consult/hospice consult 04/12 -supplemental potassium ordered -echo completed; pending -lower extremity doppler venous US negative for dvt -discontinue omnicef/azithromycin -renal US completed -unable to obtain CT PE study due to renal function; unable to obtain Vq scan till Monday -continue anticoagulation -given hypotension holding antihypertensives and starting solumedrol (04/10)-> transition back to baseline prednisone -discontinue tele Code status-DNR/DNI/Comfort care DVT PPx -on eliquis Dispo-estimated discharge in 1-2 days; pending hospice evaluation
--- NOTE | 2021-04-11 11:49 | US ---
Bilateral lower extremity deep venous ultrasound: Duplex and color Doppler evaluation was obtained of the right and left common femoral, proximal greater saphenous, superficial femoral, popliteal, posterior tibial and peroneal veins. Comparison: No prior venous imaging is available. Technologist's note: Extremely difficult due to body habitus Findings: Posterior tibial vein and peroneal vein on both sides are not well visualized. There is augmentation seen throughout the deep veins. Compressibility is also diffusely limited on both sides. Impression: 1. Limited study as noted above. 2. Normal augmentation is seen within the visualized veins, no findings are definitely seen to indicate deep venous thrombosis within either lower extremity. Diagnostic code #2 I agree with preliminary report from [facility], finalized on 04/10/21, 10:35 AM CDT, code 1
[2021-04-11] MEDS: Potassium Chloride 20 MEQ Tab.ER PO SCH ×2 (12:01→20:41)
--- NOTE | 2021-04-11 12:29 | CT ---
CT chest Technique: Multiple axial sections were obtained from above the lung apices inferiorly through the lung bases. Intravenous contrast was not utilized. Reconstructed coronal and sagittal images were obtained. Comparison: Prior CT chest exam of 12/05/17. Findings: Small right-sided pleural effusion is seen. Slightly larger left-sided pleural effusion is noted. Thoracic aorta shows atherosclerotic calcification. Small scattered lymph nodes are seen which are felt to be within normal limits. Coronary artery calcification is noted. Calcification is also noted at the base of the aorta and around the mitral annulus. Heart is enlarged with no pericardial thickening. Minimal fluid is seen around the liver. Liver is also somewhat nodular in appearance raising the possibility of cirrhosis. Several calcified gallstones are partially seen within the visualized portion of the gallbladder. Lung window settings were reviewed which show areas of atelectasis which are more prominent on the left side adjacent to the pleural effusion. Lesser atelectasis is seen within the right lung base. No definite acute parenchymal change is otherwise seen. Bone window settings were reviewed. Scattered degenerative spurring is noted within the spine. Scattered rib fractures are noted on the right side which appear to be old. No acute abnormality is appreciated. There is joint effusion noted within the right shoulder. 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 Impression: 1. Small bilateral pleural effusions worse on the left side. 2. Probable atelectasis adjacent to the pleural effusions, worse on the left side. 3. Heart is enlarged. Probable cirrhosis within the liver. Several small calcified gallstones within an incompletely visualized gallbladder. 4. Other findings as noted above which are nonacute. Diagnostic code #3 I agree with preliminary report from [facility], finalized on 04/10/21, 11:59 AM CDT, code 1
--- NOTE | 2021-04-11 13:33 | US ---
Renal ultrasound: Multiple real-time images were obtained. Comparison: Prior CT abdomen and pelvis study of 04/21/17, no prior renal ultrasound is available. Technologist's note: Very limited study due to body habitus, unable to physically scan abdomen well Findings: Right kidney shows no hydronephrosis or mass. Small cyst appears to be present measuring 2.6 cm. Left kidney is not optimally seen. Two cysts are suggested within the left kidney measuring 4.1 cm and 1.9 cm. No hydronephrosis is seen within either kidney. No gross solid abnormality is appreciated within either kidney. The only resistivity index that was able to be obtained was within the mid left renal artery and shows a slightly elevated measurement compatible with medical renal disease. Large cystic and solid abnormality is seen within the pelvis. This finding measures 9.9 x 5.6 x 6.1 cm. Bladder is not well seen. Measurements: Right kidney length: 8.6 cm Left kidney length: 12.5 cm Impression: 1. Cysts suggested within the kidneys. No hydronephrosis is seen. Probable medical renal disease as noted above. 2. Mixed cystic and solid abnormality within the pelvis measuring up to 9.9 cm. This may represent uterine fibroid although the bladder is not well seen but cannot exclude a mass. Consider pelvic ultrasound. Diagnostic code #9 I agree with preliminary report from [facility], finalized on 04/10/21, 10:41 AM CDT, code 1
[2021-04-11] MEDS: Furosemide 20 MG/2 ML VIAL IVPUSH SCH ×2 (14:20→20:43)
[2021-04-11] MEDS: LORazepam 2 MG/ML SDV IVPUSH PRN (20:40)
[2021-04-11] MEDS: Melatonin 3 MG Tab PO SCH (20:41)
[2021-04-12] MEDS: predniSONE 1 MG Tab PO SCH (08:01)
[2021-04-12] MEDS: Hydroxychloroquine 200 MG Tab PO SCH (08:01)
[2021-04-12] MEDS: Digoxin 125 MCG Tab PO SCH (08:01)
[2021-04-12] MEDS: Potassium Chloride 20 MEQ Tab.ER PO SCH ×2 (08:01→20:01)
[2021-04-12] MEDS: Magnesium Oxide 400 MG Tab PO SCH (08:01)
[2021-04-12] MEDS: Diltiazem 180 MG Cap.CD PO SCH (08:01)
[2021-04-12] MEDS: Insulin Glarg,Human.Rec.Analog 100 Unit/ML SUBCUT SCH ×2 (08:02→20:01)
[2021-04-12] MEDS: Pantoprazole 40 MG Tab.CR PO SCH (08:02)
[2021-04-12] MEDS: Furosemide 20 MG/2 ML VIAL IVPUSH SCH ×2 (08:02→15:55)
[2021-04-12] MEDS: Insulin Lispro 100 UNIT/ML 10 ML Vial SUBCUT SCH ×5 (08:03→22:37)
[2021-04-12] MEDS: Docusate Sodium 100 MG Cap PO PRN (08:07)
[2021-04-12] MEDS: Leflunomide 20 MG Tablet **PTOM PO SCH (08:07)
[2021-04-12] MEDS: LORazepam 2 MG/ML SDV IVPUSH PRN ×3 (09:42→19:47)
[2021-04-12] MEDS ORDERED: Nitroglycerin 0.1 MG/HR Transdermal Patch TRDERM ONE (10:11)
[2021-04-12] MEDS ORDERED: Furosemide 40 MG/4 ML VIAL IVPUSH ONE (10:11)
--- NOTE | 2021-04-12 15:23 | PCM.PN ---
- General Info Date of Service: 04/12/21 Admission Dx/Problem (Free Text): Admission Diagnosis/Problem Admission Diagnosis/Problem CHF, Congestive heart failure Functional Status: Reports: Pain Controlled, Tolerating Diet, Urinating. Denies: Ambulating, New Symptoms - Review of Systems General: Reports: Weakness, Fatigue, Malaise. Denies: Fever, Chills HEENT: Reports: No Symptoms. Denies: Headaches, Sore Throat Pulmonary: Reports: Shortness of Breath, Cough, Sputum. Denies: Pleuritic Chest Pain, Wheezing Cardiovascular: Reports: Dyspnea on Exertion, Edema. Denies: Chest Pain, Palpitations Gastrointestinal: Reports: No Symptoms. Denies: Abdominal Pain, Constipation, Diarrhea, Nausea, Vomiting Genitourinary: Reports: No Symptoms. Denies: Pain Musculoskeletal: Reports: No Symptoms Skin: Reports: No Symptoms. Denies: Cyanosis Neurological: Reports: Difficulty Walking, Gait Disturbance. Denies: Confusion Psychiatric: Reports: No Symptoms - Patient Data Vitals - Most Recent: Last Vital Signs Temp 97.3 F 04/12/21 07:21 Pulse 78 04/12/21 08:01 Resp 18 04/12/21 07:21 BP 145/63 H 04/12/21 07:21 Pulse Ox 94 L 04/12/21 07:21 Weight - Most Recent: 251 lb 1.6 oz I&O - Last 24 Hours: Intake & Output 04/12/21 04/12/21 04/12/21 06:59 14:59 22:59 Intake Total 300 200 Output Total 1250 Balance -950 200 Lab Results Last 24 Hours: Laboratory Results - last 24 hr 04/11/21 04/11/21 04/12/21 Range/Units 16:38 20:29 06:58 POC Glucose 220 H 255 H 165 H (70-99) mg/dL 04/12/21 Range/Units 11:33 POC Glucose 178 H (70-99) mg/dL Med Orders - Current: Current Medications Acetaminophen (Acetaminophen 325 Mg Tab) 650 mg PO Q4H PRN PRN Reason: Pain (Mild 1-3)/fever Digoxin (Digoxin 125 Mcg Tab) 62.5 mcg PO DAILY [facility] Last Admin: 04/12/21 08:01 Dose: 62.5 mcg Documented by: Diltiazem HCl (Diltiazem 180 Mg Cap.Cd) 360 mg PO DAILY [facility] Last Admin: 04/12/21 08:01 Dose: 360 mg Documented by: Docusate Sodium (Docusate Sodium 100 Mg Cap) 100 mg PO BID PRN PRN Reason: Constipation Last Admin: 04/12/21 08:07 Dose: 100 mg Documented by: Furosemide (Furosemide 40 Mg/4 Ml Vial) 40 mg IVPUSH BIDDIURETIC [facility] Hydromorphone HCl (Hydromorphone 0.5 Mg/0.5 Ml Syringe) 0.25 mg IVPUSH Q2H PRN PRN Reason: Pain (moderate 4-6) Hydroxychloroquine Sulfate (Hydroxychloroquine 200 Mg Tab) 200 mg PO DAILY [facility] Last Admin: 04/12/21 08:01 Dose: 200 mg Documented by: Insulin Glargine (Insulin Glarg,Human.Rec.Analog 100 Unit/Ml) 23 unit SUBCUT BID [facility] Last Admin: 04/12/21 08:02 Dose: 23 units Documented by: Insulin Human Lispro (Insulin Lispro 100 Unit/Ml 10 Ml Vial) 0 unit SUBCUT QIDACANDBED [facility]; Protocol Last Admin: 04/12/21 12:48 Dose: 2 unit Documented by: Lorazepam (Lorazepam 2 Mg/Ml Sdv) 0.5 mg IVPUSH Q3H PRN PRN Reason: Anxiety Last Admin: 04/12/21 09:42 Dose: 0.5 mg Documented by: Magnesium Oxide (Magnesium Oxide 400 Mg Tab) 400 mg PO DAILY [facility] Last Admin: 04/12/21 08:01 Dose: 400 mg Documented by: Melatonin (Melatonin 3 Mg Tab) 3 mg PO BEDTIME [facility] Last Admin: 04/11/21 20:41 Dose: 3 mg Documented by: Miscellaneous Information (Remove Nitroglycerin Patch) 1 ea TRDERM ONETIME ONE Stop: 04/12/21 23:01 Morphine Sulfate (Morphine 2 Mg/Ml Syringe) 1 mg IVPUSH Q2H PRN PRN Reason: comfort care/respiratory Nitroglycerin (Nitroglycerin 0.4 Mg Tab.Sl) 0.4 mg SL Q5M PRN PRN Reason: Chest Pain Ondansetron HCl (Ondansetron 4 Mg/2 Ml Sdv) 4 mg IV Q4H PRN PRN Reason: Nausea/Vomiting Last Admin: 04/09/21 13:00 Dose: 4 mg Documented by: Pantoprazole Sodium (Pantoprazole 40 Mg Tab.Cr) 40 mg PO DAILY [facility] Last Admin: 04/12/21 08:02 Dose: 40 mg Documented by: Leflunomide 20 Mg (Tablet Ptom) 0 each PO DAILY [facility] Last Admin: 04/12/21 08:07 Dose: 20 each Documented by: Potassium Chloride (Potassium Chloride 20 Meq Tab.Er) 20 meq PO BID [facility] Last Admin: 04/12/21 08:01 Dose: 20 meq Documented by: Prednisone (Prednisone 1 Mg Tab) 1 mg PO WITHBREAKFAST@0800 [facility] Last Admin: 04/12/21 08:01 Dose: 1 mg Documented by: Senna (Sennosides 8.6 Mg Tab) 8.6 mg PO DAILY PRN PRN Reason: Constipation Last Admin: 04/12/21 08:07 Dose: 8.6 mg Documented by: Sodium Chloride (Sodium Chloride 0.9% 10 Ml Syringe) 10 ml FLUSH ASDIRECTED PRN PRN Reason: Keep Vein Open Last Admin: 04/08/21 18:50 Dose: 10 ml Documented by: Discontinued Medications Apixaban (Apixaban 5 Mg Tab) 5 mg PO BID [facility] Last Admin: 04/10/21 10:21 Dose: 5 mg Documented by: Azithromycin (Azithromycin 250 Mg Tab) 500 mg PO DAILY [facility] Last Admin: 04/11/21 08:09 Dose: 500 mg Documented by: Calcium Carbonate/Glycine (Calcium Carbonate 500 Mg Tab.Chew) 500 mg PO Q8H PRN PRN Reason: Indigestion Last Admin: 04/09/21 13:01 Dose: 500 mg Documented by: Carvedilol (Carvedilol 12.5 Mg Tab) 25 mg PO BID [facility] Last Admin: 04/10/21 10:30 Dose: Not Given Documented by: Cefdinir (Cefdinir 300 Mg Cap) 300 mg PO DAILY [facility] Last Admin: 04/11/21 08:08 Dose: 300 mg Documented by: Ezetimibe (Ezetimibe 10 Mg Tab) 10 mg PO BEDTIME [facility] Last Admin: 04/09/21 20:13 Dose: 10 mg Documented by: Furosemide (Furosemide 40 Mg/4 Ml Vial) 40 mg IVPUSH DAILY [facility] Last Admin: 04/09/21 09:45 Dose: 40 mg Documented by: Furosemide (Furosemide 40 Mg/4 Ml Vial) 40 mg IVPUSH 1600 CJ Last Admin: 04/09/21 16:29 Dose: 40 mg Documented by: Furosemide (Furosemide 20 Mg/2 Ml Vial) 20 mg IVPUSH 1600 [facility] Furosemide (Furosemide 20 Mg/2 Ml Vial) 20 mg IVPUSH TID [facility] Last Admin: 04/12/21 08:02 Dose: 20 mg Documented by: Furosemide (Furosemide 40 Mg/4 Ml Vial) 40 mg IVPUSH NOW ONE Stop: 04/12/21 10:12 Last Admin: 04/12/21 10:22 Dose: 40 mg Documented by: Sodium Chloride (Normal Saline) 500 mls @ 125 mls/hr IV .BOLUS ONE Stop: 04/09/21 22:23 Last Admin: 04/09/21 18:46 Dose: 125 mls/hr Documented by: Albumin Human 12.5 gm/ Premix 50 mls @ 50 mls/hr IV Q1H [facility] Last Admin: 04/09/21 19:07 Dose: Not Given Documented by: Albumin Human 12.5 gm/ Premix 50 mls @ 50 mls/hr IV ONETIME ONE Stop: 04/09/21 19:35 Last Admin: 04/09/21 18:46 Dose: 50 mls/hr Documented by: Lactated Ringer's (Ringers, Lactated) 500 mls @ 250 mls/hr IV ONETIME ONE Stop: 04/10/21 00:29 Last Admin: 04/10/21 01:12 Dose: 250 mls/hr Documented by: Albumin Human 12.5 gm/ Premix 50 mls @ 50 mls/hr IV ONETIME ONE Stop: 04/10/21 08:14 Last Admin: 04/10/21 07:30 Dose: 50 mls/hr Documented by: Sodium Chloride (Normal Saline) 1,000 mls @ 125 mls/hr IV ASDIRECTED CJ Stop: 04/10/21 11:46 Sodium Chloride (Normal Saline) 500 mls @ 125 mls/hr IV ASDIRECTED CJ Stop: 04/10/21 12:21 Last Admin: 04/10/21 08:29 Dose: 125 mls/hr Documented by: Albumin Human 12.5 gm/ Premix 50 mls @ 50 mls/hr IV Q1H [facility] Last Admin: 04/10/21 16:58 Dose: Not Given Documented by: Furosemide 100 mg/ Sodium (Chloride) 100 mls @ 5 mls/hr IV TITRATE CJ; Protocol Last Admin: 04/11/21 07:04 Dose: 5 mg/hr, 5 mls/hr Documented by: Albumin Human 12.5 gm/ Premix 50 mls @ 50 mls/hr IV ONETIME ONE Stop: 04/10/21 13:03 Last Admin: 04/10/21 12:21 Dose: 50 mls/hr Documented by: Lorazepam (Lorazepam 0.5 Mg Tab) 0.25 mg PO Q12H PRN PRN Reason: Anxiety Methylprednisolone Sodium Succinate (Methylprednisolone Sodium Succinate 40 Mg/1 Ml Sdv) 40 mg IVPUSH Q8H CJ Last Admin: 04/10/21 12:16 Dose: 40 mg Documented by: Morphine Sulfate (Morphine 2 Mg/Ml Syringe) 2 mg IVPUSH ONETIME ONE Stop: 04/08/21 19:29 Last Admin: 04/08/21 19:46 Dose: 2 mg Documented by: Morphine Sulfate (Morphine 2 Mg/Ml Syringe) 2 mg IVPUSH ONETIME ONE Stop: 04/08/21 20:38 Last Admin: 04/08/21 20:47 Dose: 2 mg Documented by: Morphine Sulfate (Morphine 2 Mg/Ml Syringe) 2 mg IVPUSH ONETIME ONE Stop: 04/09/21 00:18 Last Admin: 04/09/21 00:22 Dose: 2 mg Documented by: Morphine Sulfate (Morphine 2 Mg/Ml Syringe) 2 mg IVPUSH Q1H PRN PRN Reason: Chest Pain Last Admin: 04/09/21 13:01 Dose: 2 mg Documented by: Morphine Sulfate (Morphine 2 Mg/Ml Syringe) Confirm Administered Dose 2 mg .ROUTE .STK-MED ONE Stop: 04/09/21 05:01 Last Admin: 04/09/21 05:15 Dose: Not Given Documented by: Nitroglycerin (Nitroglycerin 0.1 Mg/Hr Transdermal Patch) 0.1 mg TRDERM ONETIME ONE Stop: 04/12/21 10:12 Last Admin: 04/12/21 10:23 Dose: 0.1 mg Documented by: Leflunomide 20 Mg (Tablet) 0 each PO DAILY [facility] Last Admin: 04/10/21 11:12 Dose: Not Given Documented by: Potassium Chloride (Potassium Chloride 10 Meq Tab.Er) 10 meq PO DAILY [facility] Pravastatin Sodium (Pravastatin 20 Mg Tab) 40 mg PO BEDTIME [facility] Last Admin: 04/09/21 20:13 Dose: 40 mg Documented by: Prednisone (Prednisone 1 Mg Tab) 1 mg PO DAILY [facility] Last Admin: 04/10/21 10:22 Dose: 1 mg Documented by: - Exam Quality Assessment: Supplemental Oxygen (2L ), Urine Catheter, DVT Prophylaxis Urinary Catheter Total Time: 2Days 16Hours General: Alert, Oriented, Cooperative, Mild Distress (reports SOB ) HEENT: Pupils Equal, Pupils Reactive, Mucous Membr. Moist/[place] Neck: Supple, Trachea Midline Lungs: Normal Respiratory Effort, Decreased Breath Sounds, Rhonchi Cardiovascular: Regular Rate, Irregular Rhythm GI/Abdominal Exam: Normal Bowel Sounds, Soft, Non-Tender, No Distention (Female) Exam: Deferred Back Exam: Normal Inspection, Decreased Range of Motion Extremities: Normal Inspection, Normal Range of Motion, Non-Tender, Normal Capillary Refill, Pedal Edema Skin: Warm, Dry, Intact Neurological: No New Focal Deficit Psy/Mental Status: Alert, Normal Affect, Normal Mood - Patient Data Lab Results Last 24 hrs: Laboratory Results - last 24 hr 04/11/21 04/11/21 04/12/21 Range/Units 16:38 20:29 06:58 POC Glucose 220 H 255 H 165 H (70-99) mg/dL 04/12/21 Range/Units 11:33 POC Glucose 178 H (70-99) mg/dL Result Diagrams: 04/10/21 06:48 04/10/21 15:00 Sepsis Event Note - Evaluation Sepsis Screening Result: No Definite Risk - Focused Exam Vital Signs: Vital Signs Temp Pulse Resp BP Pulse Ox 04/12/21 08:01 78 04/12/21 07:21 97.3 F 78 18 145/63 H 94 L - Problem List & Annotations (1) History of non-ST elevation myocardial infarction (NSTEMI) SNOMED Code(s): 687114675 Code(s): I25.2 - OLD MYOCARDIAL INFARCTION Status: Chronic Priority: Low Current Visit: No (2) CAD (coronary artery disease) SNOMED Code(s): 08575699 Code(s): I25.10 - ATHSCL HEART DISEASE OF [place] CORONARY ARTERY W/O ANG PCTRS Status: Chronic Priority: Medium Current Visit: No Qualifiers: Coronary Disease-Associated Artery/Lesion type: unspecified vessel or lesion type [place] vs. transplanted heart: [place] heart Associated angina: unspecified whether angina present Qualified Code(s): I25.10 - Atherosclerotic heart disease of [place] coronary artery without angina pectoris (3) Pulmonary hypertension SNOMED Code(s): 67971307 Code(s): I27.20 - PULMONARY HYPERTENSION, UNSPECIFIED Status: Chronic Priority: Low Current Visit: No (4) PVD (peripheral vascular disease) SNOMED Code(s): 335304877 Code(s): I73.9 - PERIPHERAL VASCULAR DISEASE, UNSPECIFIED Status: Chronic Priority: Low Current Visit: No (5) NUPUR (acute kidney injury) SNOMED Code(s): 20168738, 83034848 Code(s): N17.9 - ACUTE KIDNEY FAILURE, UNSPECIFIED Status: Acute Priority: High Current Visit: Yes (6) Chronic hypoxemic respiratory failure SNOMED Code(s): 074858360 Code(s): J96.11 - CHRONIC RESPIRATORY FAILURE WITH HYPOXIA Status: Chronic Priority: Medium Current Visit: Yes (7) Need for comfort care SNOMED Code(s): 505640233, 313894544 Code(s): JQG4447 - Status: Acute Priority: High Current Visit: Yes (8) Chronic atrial fibrillation SNOMED Code(s): 782087979 Code(s): I48.20 - CHRONIC ATRIAL FIBRILLATION, UNSPECIFIED Status: Chronic Priority: Medium Current Visit: Yes (9) Congestive heart failure SNOMED Code(s): 90486650 Code(s): I50.9 - HEART FAILURE, UNSPECIFIED Status: Chronic Priority: Medium Current Visit: No Qualifiers: Heart failure type: diastolic Heart failure chronicity: acute on chronic Qualified Code(s): I50.33 - Acute on chronic diastolic (congestive) heart failure (10) Anemia SNOMED Code(s): 413567466 Code(s): D64.9 - ANEMIA, UNSPECIFIED Status: Chronic Priority: Medium Current Visit: No Qualifiers: Anemia type: due to chronic kidney disease Chronic kidney disease stage: stage 3 (moderate) Chronic kidney disease stage 3 subtype: stage 3b (GFR 30- 44) Qualified Code(s): N18.32 - Chronic kidney disease, stage 3b; D63.1 - Anemia in chronic kidney disease (11) Atrial fibrillation SNOMED Code(s): 74078781 Code(s): I48.91 - UNSPECIFIED ATRIAL FIBRILLATION Status: Chronic Priority: Medium Current Visit: No Qualifiers: Atrial fibrillation type: unspecified Qualified Code(s): I48.91 - Unspecified atrial fibrillation (12) Chronic renal insufficiency, stage III (moderate) SNOMED Code(s): 029787192 Code(s): N18.30 - CHRONIC KIDNEY DISEASE, STAGE 3 UNSPECIFIED Status: Chronic Priority: Medium Current Visit: No (13) Cor pulmonale, chronic SNOMED Code(s): 66429324 Code(s): I27.81 - COR PULMONALE (CHRONIC) Status: Chronic Priority: Medium Current Visit: No (14) Diabetes mellitus type 2 in obese SNOMED Code(s): 74820363 Code(s): E11.69 - TYPE 2 DIABETES MELLITUS WITH OTHER SPECIFIED COMPLICATION; E66.9 - OBESITY, UNSPECIFIED Status: Chronic Priority: Medium Current Visit: No (15) Diabetic nephropathy Status: Chronic Priority: Medium Current Visit: No Qualifiers: Diabetes mellitus type: type 2 Qualified Code(s): E11.21 - Type 2 diabetes mellitus with diabetic nephropathy (16) LEILANI on CPAP SNOMED Code(s): 45151019 Code(s): G47.33 - OBSTRUCTIVE SLEEP APNEA (ADULT) (PEDIATRIC); Z99.89 - DEPENDENCE ON OTHER ENABLING MACHINES AND DEVICES Status: Chronic Priority: Medium Current Visit: No Annotation/Comment:: compliant with cpap (17) Rheumatoid arthritis SNOMED Code(s): 76156345 Code(s): M06.9 - RHEUMATOID ARTHRITIS, UNSPECIFIED Status: Chronic Priority: Medium Current Visit: No Qualifiers: Rheumatoid arthritis location: multiple sites (18) Supplemental oxygen dependent SNOMED Code(s): 849212580066 Code(s): Z99.81 - DEPENDENCE ON SUPPLEMENTAL OXYGEN Status: Chronic Priority: Medium Current Visit: No - Problem List Review Problem List Initiated/Reviewed/Updated: Yes - My Orders Last 24 Hours: My Active Orders 04/12/21 10:05 Consult to Case Management/Portal Administrator [CONS] Routine 04/12/21 10:10 Morphine 1 mg IVPUSH Q2H PRN 04/12/21 23:00 Remove Patch 1 ea TRDERM ONETIME ONE 04/13/21 06:00 Furosemide [Lasix] 40 mg IVPUSH BIDDIURETIC - Assessment Assessment:: 04/12/2021 This is a 80-year-old female who presents to ED on 04/08/2021 with chest pain. She was given morphine and was noted to be hypertensive. Chest x-ray showed increased density within left lung base and findings suspicious for early CHF. Echocardiogram was obtained on 04/09/2021 and interpreted as: 1 study was performed with the patient in atrial fibrillation/flutter. 2. Left ventricular internal cavity size is normal. 3. Global and mildly to moderately decreased left ventricular systolic function. 4. Left ventricular ejection fraction, by visual estimation, is 40 to 45%. 5. Mild septal left ventricular hypertrophy. 6. Right ventricular size is normal. 7. Low normal right ventricular systolic function. 8. Moderately dilated left atrium. 9. The aortic valve is not well visualized. 10. There is moderate aortic valve sclerosis without stenosis. 11. Mild mitral valve regurgitation. 12. The tricuspid valve is not well visualized. 13. Mild tricuspid valve regurgitation. 14. Inferior vena cava is abnormal. 15. Inferior vena cava is dilated with respiratory size variation less than 50% consistent with elevated right atrial pressure. 16. The right ventricular systolic pressure is mild to moderately elevated at 42 mmHg. 17. Large left pleural effusion. Retroperitoneal ultrasound was obtained with cysts suggested within the kidneys. No hydronephrosis is seen. Probable medical renal disease as noted above. Mixed cystic and solid abnormality within the pe lvis measuring up to 9.9 cm is also noted which may represent uterine fibroid although bladder is not well seen but cannot exclude mass. Consider pelvic ultrasound. Venous ultrasound was obtained and was negative for any DVT. Chest CT scan was obtained showing bilateral pleural effusions worse on the left side and probable atelectasis adjacent to the pleural effusions, worse on the left side. Heart is noted to be enlarged and there is probable cirrhosis within the liver, along with several small calcified gallstones with an incompletely visualized gallbladder. Other nonacute findings are noted. Ultimately patient and family report that they would like comfort cares with minimal continued treatment. Home medications are continued as well as RA treatment. Patient reports that she just wants to be made comfortable and be able to breathe. They wish to continue patient's diabetic medications and blood glucose checks but no other acute treatment. They also wish for hospice consult. Due to the holiday hospice consultation and case management/social work consultation are unable to be obtained until tomorrow. Likely discharge in 1 to 2 days pending hospice consult. Length of stay greater than 96 hours pending disposition plan. - Plan Plan:: Assessment: This 80-year-old female with multiple medical problems including atrial fibrillation, heart failure, CT/NSTEMI, pulmonary hypertension, peripheral vascular disease, aortic stenosis, cor pulmonale, LEILANI, rheumatoid arthritis, insulin-dependent diabetes presenting for evaluation of chest pain and sob. The patient endorses pleuritic intermittent chest pain and SOB. CXR c oncerning for CHF vs PNA, EKG with Afib, Trop WNL, BNP elevated. 1. Pleuritic chest pain/SOB; suspected acute CHF exacerbation vs PNA; PE less likely as patient anticoagulated; CT chest showing bilateral pleural effusion 2. Hx of CAD/NSTEMI/Pulm HTN 3. Hx of Atrial Fibrillation 4. Hx of Peripheral vascular disease 5. Acute renal failure/Hx of CKD Stage III 6. Hx of LEILANI on nocturnal bipap 7. Chronic hypoxic respiratory failure; baseline oxygen requirements 2-6 liters 8. Hx of Rheumatoid Arthritis 9. Hx of Insulin dependent Type II DM 10. Anemia of chronic kidney disease Plan -Goals of care discussed with patient and daughter 04/11 and transitioned to comfort care -patient does not want transfer to higher level care for nephrology consult/cardiology consult -states she would not want dialysis if kidney failure progresses -does not want further imaging studies/thoracentesis/blood tests -her main goal is to improve SOB but realizes that this may not be feasible -she states she is ready to if the time has come and she has been able to visit with family and grandkids -her current requests is to stop IVF, try lasix while understanding that renal function may worsen -SW consult/hospice consult 04/12 -supplemental potassium ordered -echo completed -lower extremity doppler venous US negative for dvt -discontinue omnicef/azithromycin -renal US completed -unable to obtain CT PE study due to renal function; unable to obtain Vq scan till Monday -continue anticoagulation -given hypotension holding antihypertensives and starting solumedrol (04/10)-> transition back to baseline prednisone -discontinue tele -Increase daily lasix dosing in an attempt to improve pleural effusions -PRN morphine for pain/dyspnea -Nitroglycerine patch for vasodilation -Continue home medications as per patient -O2 PRN -Continue PRN/nightly BiPAP Code status-DNR/DNI/Comfort care DVT PPx -on eliquis Dispo-estimated discharge in 1-2 days; pending hospice evaluation Length of stay greater than 96 hours pending disposition plan.
[2021-04-12] MEDS ORDERED: Furosemide 40 MG/4 ML VIAL ONE (15:49)
[2021-04-12] MEDS ORDERED: Furosemide 20 MG/2 ML VIAL ONE (15:55)
[2021-04-12] MEDS ORDERED: Bisacodyl 10 MG Supp RECTAL PRN (16:15)
[2021-04-12] MEDS: Morphine 2 MG/ML SYRINGE IVPUSH PRN (18:25)
[2021-04-12] MEDS: Melatonin 3 MG Tab PO SCH (20:01)
[2021-04-13] MEDS: LORazepam 2 MG/ML SDV IVPUSH PRN ×5 (04:18→21:10)
[2021-04-13] MEDS: Furosemide 40 MG/4 ML VIAL IVPUSH SCH ×2 (05:30→15:00)
[2021-04-13] MEDS: Insulin Lispro 100 UNIT/ML 10 ML Vial SUBCUT SCH ×4 (06:27→21:09)
[2021-04-13] MEDS: predniSONE 1 MG Tab PO SCH (07:38)
[2021-04-13] MEDS: Digoxin 125 MCG Tab PO SCH (08:47)
[2021-04-13] MEDS: Diltiazem 180 MG Cap.CD PO SCH (08:48)
[2021-04-13] MEDS: Hydroxychloroquine 200 MG Tab PO SCH (08:48)
[2021-04-13] MEDS: Pantoprazole 40 MG Tab.CR PO SCH (08:48)
[2021-04-13] MEDS: Potassium Chloride 20 MEQ Tab.ER PO SCH ×2 (08:48→20:03)
[2021-04-13] MEDS: Magnesium Oxide 400 MG Tab PO SCH (08:48)
[2021-04-13] MEDS: Leflunomide 20 MG Tablet **PTOM PO SCH (08:54)
[2021-04-13] MEDS: Docusate Sodium 100 MG Cap PO PRN (08:54)
[2021-04-13] MEDS: Insulin Glarg,Human.Rec.Analog 100 Unit/ML SUBCUT SCH ×2 (08:55→20:05)
--- NOTE | 2021-04-13 12:36 | PCM.PN ---
- General Info Date of Service: 04/13/21 Admission Dx/Problem (Free Text): Admission Diagnosis/Problem Admission Diagnosis/Problem CHF, Congestive heart failure Functional Status: Reports: Pain Controlled, Urinating. Denies: Tolerating Diet (Minimal intake ), Ambulating, New Symptoms - Review of Systems General: Reports: Weakness, Fatigue, Malaise. Denies: Fever, Chills HEENT: Reports: No Symptoms. Denies: Headaches, Sore Throat Pulmonary: Reports: Shortness of Breath, Cough. Denies: Pleuritic Chest Pain, Sputum, Wheezing Cardiovascular: Reports: No Symptoms, Dyspnea on Exertion, Edema. Denies: Chest Pain, Lightheadedness Gastrointestinal: Reports: Constipation. Denies: Abdominal Pain, Diarrhea, Nausea, Vomiting Genitourinary: Reports: No Symptoms. Denies: Pain Musculoskeletal: Reports: No Symptoms Skin: Reports: No Symptoms. Denies: Cyanosis Neurological: Reports: No Symptoms. Denies: Confusion, Difficulty Walking, Gait Disturbance Psychiatric: Reports: No Symptoms - Patient Data Vitals - Most Recent: Last Vital Signs Temp 97.3 F 04/13/21 07:22 Pulse 87 04/13/21 08:47 Resp 14 04/13/21 07:22 BP 144/79 H 04/13/21 07:39 Pulse Ox 98 04/13/21 07:22 Weight - Most Recent: 254 lb 1.6 oz I&O - Last 24 Hours: Intake & Output 04/12/21 04/13/21 04/13/21 22:59 06:59 14:59 Intake Total 1025 300 200 Output Total 1550 1500 Balance -525 -1200 200 Lab Results Last 24 Hours: Laboratory Results - last 24 hr 04/12/21 04/12/21 04/13/21 Range/Units 16:28 20:06 06:25 WBC (3.98-10.04) K/mm3 RBC (3.98-5.22) M/mm3 Hgb (11.2-15.7) gm/dl Hct (34.1-44.9) % MCV (79.4-94.8) fl MCH (25.6-32.2) pg MCHC (32.2-35.5) g/dl RDW Std Deviation (36.4-46.3) fL Plt Count (182-369) K/mm3 MPV (9.4-12.3) fl Neut % (Auto) (34.0-71.1) % Lymph % (Auto) (19.3-51.7) % [place] % (Auto) (4.7-12.5) % Eos % (Auto) (0.7-5.8) Baso % (Auto) (0.1-1.2) % Neut # (Auto) (1.56-6.13) K/mm3 Lymph # (Auto) (1.18-3.74) K/mm3 [place] # (Auto) (0.24-0.36) K/mm3 Eos # (Auto) (0.04-0.36) K/mm3 Baso # (Auto) (0.01-0.08) K/mm3 Manual Slide Review Sodium (136-145) mEq/L Potassium (3.5-5.1) mEq/L Chloride (98-107) mEq/L Carbon Dioxide (21-32) mEq/L Anion Gap (5-15) BUN (7-18) mg/dL Creatinine (0.55-1.02) mg/dL Est Cr Clr Drug Dosing mL/min Estimated GFR (MDRD) (>60) mL/min BUN/Creatinine Ratio (14-18) Glucose (70-99) mg/dL POC Glucose 194 H 201 H 101 H (70-99) mg/dL Calcium (8.5-10.1) mg/dL Total Bilirubin (0.2-1.0) mg/dL AST (15-37) U/L ALT (14-59) U/L Alkaline Phosphatase (46-116) U/L NT-Pro-B Natriuret Pep (0-450) pg/mL Total Protein (6.4-8.2) g/dl Albumin (3.4-5.0) g/dl Globulin gm/dL Albumin/Globulin Ratio (1-2) 04/13/21 04/13/21 04/13/21 Range/Units 06:27 06:27 06:27 WBC 4.67 (3.98-10.04) K/mm3 RBC 3.72 L (3.98-5.22) M/mm3 Hgb 9.8 L (11.2-15.7) gm/dl Hct 32.6 L (34.1-44.9) % MCV 87.6 (79.4-94.8) fl MCH 26.3 (25.6-32.2) pg MCHC 30.1 L (32.2-35.5) g/dl RDW Std Deviation 53.6 H (36.4-46.3) fL Plt Count 274 (182-369) K/mm3 MPV 9.2 L (9.4-12.3) fl Neut % (Auto) 61.2 (34.0-71.1) % Lymph % (Auto) 12.6 L (19.3-51.7) % [place] % (Auto) 23.8 H (4.7-12.5) % Eos % (Auto) 2.4 (0.7-5.8) Baso % (Auto) 0.0 L (0.1-1.2) % Neut # (Auto) 2.86 (1.56-6.13) K/mm3 Lymph # (Auto) 0.59 L (1.18-3.74) K/mm3 [place] # (Auto) 1.11 H (0.24-0.36) K/mm3 Eos # (Auto) 0.11 (0.04-0.36) K/mm3 Baso # (Auto) 0.00 L (0.01-0.08) K/mm3 Manual Slide Review Abnormal smear Sodium 146 H (136-145) mEq/L Potassium 3.8 (3.5-5.1) mEq/L Chloride 105 (98-107) mEq/L Carbon Dioxide 36 H (21-32) mEq/L Anion Gap 8.8 (5-15) BUN 65 H (7-18) mg/dL Creatinine 1.9 H D (0.55-1.02) mg/dL Est Cr Clr Drug Dosing 17.24 mL/min Estimated GFR (MDRD) 26 (>60) mL/min BUN/Creatinine Ratio 34.2 H (14-18) Glucose 108 H (70-99) mg/dL POC Glucose (70-99) mg/dL Calcium 8.7 (8.5-10.1) mg/dL Total Bilirubin 0.4 (0.2-1.0) mg/dL AST 186 H (15-37) U/L ALT 520 H (14-59) U/L Alkaline Phosphatase 113 (46-116) U/L NT-Pro-B Natriuret Pep 2794 H (0-450) pg/mL Total Protein 6.7 (6.4-8.2) g/dl Albumin 2.3 L (3.4-5.0) g/dl Globulin 4.4 gm/dL Albumin/Globulin Ratio 0.5 L (1-2) 04/13/21 Range/Units 11:32 WBC (3.98-10.04) K/mm3 RBC (3.98-5.22) M/mm3 Hgb (11.2-15.7) gm/dl Hct (34.1-44.9) % MCV (79.4-94.8) fl MCH (25.6-32.2) pg MCHC (32.2-35.5) g/dl RDW Std Deviation (36.4-46.3) fL Plt Count (182-369) K/mm3 MPV (9.4-12.3) fl Neut % (Auto) (34.0-71.1) % Lymph % (Auto) (19.3-51.7) % [place] % (Auto) (4.7-12.5) % Eos % (Auto) (0.7-5.8) Baso % (Auto) (0.1-1.2) % Neut # (Auto) (1.56-6.13) K/mm3 Lymph # (Auto) (1.18-3.74) K/mm3 [place] # (Auto) (0.24-0.36) K/mm3 Eos # (Auto) (0.04-0.36) K/mm3 Baso # (Auto) (0.01-0.08) K/mm3 Manual Slide Review Sodium (136-145) mEq/L Potassium (3.5-5.1) mEq/L Chloride (98-107) mEq/L Carbon Dioxide (21-32) mEq/L Anion Gap (5-15) BUN (7-18) mg/dL Creatinine (0.55-1.02) mg/dL Est Cr Clr Drug Dosing mL/min Estimated GFR (MDRD) (>60) mL/min BUN/Creatinine Ratio (14-18) Glucose (70-99) mg/dL POC Glucose 179 H (70-99) mg/dL Calcium (8.5-10.1) mg/dL Total Bilirubin (0.2-1.0) mg/dL AST (15-37) U/L ALT (14-59) U/L Alkaline Phosphatase (46-116) U/L NT-Pro-B Natriuret Pep (0-450) pg/mL Total Protein (6.4-8.2) g/dl Albumin (3.4-5.0) g/dl Globulin gm/dL Albumin/Globulin Ratio (1-2) Med Orders - Current: Current Medications Acetaminophen (Acetaminophen 325 Mg Tab) 650 mg PO Q4H PRN PRN Reason: Pain (Mild 1-3)/fever Bisacodyl (Bisacodyl 10 Mg Supp) 10 mg RECTAL Q12H PRN PRN Reason: Constipation Last Admin: 04/12/21 17:11 Dose: 10 mg Documented by: Digoxin (Digoxin 125 Mcg Tab) 62.5 mcg PO DAILY [facility] Last Admin: 04/13/21 08:47 Dose: 62.5 mcg Documented by: Diltiazem HCl (Diltiazem 180 Mg Cap.Cd) 360 mg PO DAILY [facility] Last Admin: 04/13/21 08:48 Dose: 360 mg Documented by: Docusate Sodium (Docusate Sodium 100 Mg Cap) 100 mg PO BID PRN PRN Reason: Constipation Last Admin: 04/13/21 08:54 Dose: 100 mg Documented by: Furosemide (Furosemide 40 Mg/4 Ml Vial) 40 mg IVPUSH BIDDIURETIC [facility] Last Admin: 04/13/21 05:30 Dose: 40 mg Documented by: Hydromorphone HCl (Hydromorphone 0.5 Mg/0.5 Ml Syringe) 0.25 mg IVPUSH Q2H PRN PRN Reason: Pain (moderate 4-6) Hydroxychloroquine Sulfate (Hydroxychloroquine 200 Mg Tab) 200 mg PO DAILY [facility] Last Admin: 04/13/21 08:48 Dose: 200 mg Documented by: Insulin Glargine (Insulin Glarg,Human.Rec.Analog 100 Unit/Ml) 23 unit SUBCUT BID [facility] Last Admin: 04/13/21 08:55 Dose: 23 units Documented by: Insulin Human Lispro (Insulin Lispro 100 Unit/Ml 10 Ml Vial) 0 unit SUBCUT QIDACANDBED [facility]; Protocol Last Admin: 04/13/21 06:27 Dose: Not Given Documented by: Lorazepam (Lorazepam 2 Mg/Ml Sdv) 0.5 mg IVPUSH Q3H PRN PRN Reason: Anxiety Last Admin: 04/13/21 10:49 Dose: 0.5 mg Documented by: Magnesium Oxide (Magnesium Oxide 400 Mg Tab) 400 mg PO DAILY [facility] Last Admin: 04/13/21 08:48 Dose: 400 mg Documented by: Melatonin (Melatonin 3 Mg Tab) 3 mg PO BEDTIME [facility] Last Admin: 04/12/21 20:01 Dose: 3 mg Documented by: Morphine Sulfate (Morphine 2 Mg/Ml Syringe) 1 mg IVPUSH Q2H PRN PRN Reason: comfort care/respiratory Last Admin: 04/12/21 18:25 Dose: 1 mg Documented by: Nitroglycerin (Nitroglycerin 0.4 Mg Tab.Sl) 0.4 mg SL Q5M PRN PRN Reason: Chest Pain Ondansetron HCl (Ondansetron 4 Mg/2 Ml Sdv) 4 mg IV Q4H PRN PRN Reason: Nausea/Vomiting Last Admin: 04/09/21 13:00 Dose: 4 mg Documented by: Pantoprazole Sodium (Pantoprazole 40 Mg Tab.Cr) 40 mg PO DAILY [facility] Last Admin: 04/13/21 08:48 Dose: 40 mg Documented by: Leflunomide 20 Mg (Tablet Ptom) 0 each PO DAILY [facility] Last Admin: 04/13/21 08:54 Dose: 20 each Documented by: Potassium Chloride (Potassium Chloride 20 Meq Tab.Er) 20 meq PO BID [facility] Last Admin: 04/13/21 08:48 Dose: 20 meq Documented by: Prednisone (Prednisone 1 Mg Tab) 1 mg PO WITHBREAKFAST@0800 [facility] Last Admin: 04/13/21 07:38 Dose: 1 mg Documented by: Senna (Sennosides 8.6 Mg Tab) 8.6 mg PO DAILY PRN PRN Reason: Constipation Last Admin: 04/12/21 08:07 Dose: 8.6 mg Documented by: Sodium Chloride (Sodium Chloride 0.9% 10 Ml Syringe) 10 ml FLUSH ASDIRECTED PRN PRN Reason: Keep Vein Open Last Admin: 04/08/21 18:50 Dose: 10 ml Documented by: Discontinued Medications Apixaban (Apixaban 5 Mg Tab) 5 mg PO BID [facility] Last Admin: 04/10/21 10:21 Dose: 5 mg Documented by: Azithromycin (Azithromycin 250 Mg Tab) 500 mg PO DAILY [facility] Last Admin: 04/11/21 08:09 Dose: 500 mg Documented by: Calcium Carbonate/Glycine (Calcium Carbonate 500 Mg Tab.Chew) 500 mg PO Q8H PRN PRN Reason: Indigestion Last Admin: 04/09/21 13:01 Dose: 500 mg Documented by: Carvedilol (Carvedilol 12.5 Mg Tab) 25 mg PO BID [facility] Last Admin: 04/10/21 10:30 Dose: Not Given Documented by: Cefdinir (Cefdinir 300 Mg Cap) 300 mg PO DAILY [facility] Last Admin: 04/11/21 08:08 Dose: 300 mg Documented by: Ezetimibe (Ezetimibe 10 Mg Tab) 10 mg PO BEDTIME [facility] Last Admin: 04/09/21 20:13 Dose: 10 mg Documented by: Furosemide (Furosemide 40 Mg/4 Ml Vial) 40 mg IVPUSH DAILY [facility] Last Admin: 04/09/21 09:45 Dose: 40 mg Documented by: Furosemide (Furosemide 40 Mg/4 Ml Vial) 40 mg IVPUSH 1600 [facility] Last Admin: 04/09/21 16:29 Dose: 40 mg Documented by: Furosemide (Furosemide 20 Mg/2 Ml Vial) 20 mg IVPUSH 1600 [facility] Furosemide (Furosemide 20 Mg/2 Ml Vial) 20 mg IVPUSH TID [facility] Last Admin: 04/12/21 15:55 Dose: 20 mg Documented by: Furosemide (Furosemide 40 Mg/4 Ml Vial) 40 mg IVPUSH NOW ONE Stop: 04/12/21 10:12 Last Admin: 04/12/21 10:22 Dose: 40 mg Documented by: Furosemide (Furosemide 40 Mg/4 Ml Vial) Confirm Administered Dose 40 mg .ROUTE .STK-MED ONE Stop: 04/12/21 15:50 Last Admin: 04/12/21 16:36 Dose: Not Given Documented by: Furosemide (Furosemide 20 Mg/2 Ml Vial) Confirm Administered Dose 20 mg .ROUTE .STK-MED ONE Stop: 04/12/21 15:56 Last Admin: 04/12/21 16:35 Dose: 20 mg Documented by: Sodium Chloride (Normal Saline) 500 mls @ 125 mls/hr IV .BOLUS ONE Stop: 04/09/21 22:23 Last Admin: 04/09/21 18:46 Dose: 125 mls/hr Documented by: Albumin Human 12.5 gm/ Premix 50 mls @ 50 mls/hr IV Q1H CJ Last Admin: 04/09/21 19:07 Dose: Not Given Documented by: Albumin Human 12.5 gm/ Premix 50 mls @ 50 mls/hr IV ONETIME ONE Stop: 04/09/21 19:35 Last Admin: 04/09/21 18:46 Dose: 50 mls/hr Documented by: Lactated Ringer's (Ringers, Lactated) 500 mls @ 250 mls/hr IV ONETIME ONE Stop: 04/10/21 00:29 Last Admin: 04/10/21 01:12 Dose: 250 mls/hr Documented by: Albumin Human 12.5 gm/ Premix 50 mls @ 50 mls/hr IV ONETIME ONE Stop: 04/10/21 08:14 Last Admin: 04/10/21 07:30 Dose: 50 mls/hr Documented by: Sodium Chloride (Normal Saline) 1,000 mls @ 125 mls/hr IV ASDIRECTED CJ Stop: 04/10/21 11:46 Sodium Chloride (Normal Saline) 500 mls @ 125 mls/hr IV ASDIRECTED CJ Stop: 04/10/21 12:21 Last Admin: 04/10/21 08:29 Dose: 125 mls/hr Documented by: Albumin Human 12.5 gm/ Premix 50 mls @ 50 mls/hr IV Q1H CJ Last Admin: 04/10/21 16:58 Dose: Not Given Documented by: Furosemide 100 mg/ Sodium (Chloride) 100 mls @ 5 mls/hr IV TITRATE CJ; Protocol Last Admin: 04/11/21 07:04 Dose: 5 mg/hr, 5 mls/hr Documented by: Albumin Human 12.5 gm/ Premix 50 mls @ 50 mls/hr IV ONETIME ONE Stop: 04/10/21 13:03 Last Admin: 04/10/21 12:21 Dose: 50 mls/hr Documented by: Lorazepam (Lorazepam 0.5 Mg Tab) 0.25 mg PO Q12H PRN PRN Reason: Anxiety Methylprednisolone Sodium Succinate (Methylprednisolone Sodium Succinate 40 Mg/1 Ml Sdv) 40 mg IVPUSH Q8H [facility] Last Admin: 04/10/21 12:16 Dose: 40 mg Documented by: Miscellaneous Information (Remove Nitroglycerin Patch) 1 ea TRDERM ONETIME ONE Stop: 04/12/21 23:01 Last Admin: 04/12/21 22:46 Dose: Not Given Documented by: Morphine Sulfate (Morphine 2 Mg/Ml Syringe) 2 mg IVPUSH ONETIME ONE Stop: 04/08/21 19:29 Last Admin: 04/08/21 19:46 Dose: 2 mg Documented by: Morphine Sulfate (Morphine 2 Mg/Ml Syringe) 2 mg IVPUSH ONETIME ONE Stop: 04/08/21 20:38 Last Admin: 04/08/21 20:47 Dose: 2 mg Documented by: Morphine Sulfate (Morphine 2 Mg/Ml Syringe) 2 mg IVPUSH ONETIME ONE Stop: 04/09/21 00:18 Last Admin: 04/09/21 00:22 Dose: 2 mg Documented by: Morphine Sulfate (Morphine 2 Mg/Ml Syringe) 2 mg IVPUSH Q1H PRN PRN Reason: Chest Pain Last Admin: 04/09/21 13:01 Dose: 2 mg Documented by: Morphine Sulfate (Morphine 2 Mg/Ml Syringe) Confirm Administered Dose 2 mg .ROUTE .STK-MED ONE Stop: 04/09/21 05:01 Last Admin: 04/09/21 05:15 Dose: Not Given Documented by: Nitroglycerin (Nitroglycerin 0.1 Mg/Hr Transdermal Patch) 0.1 mg TRDERM ONETIME ONE Stop: 04/12/21 10:12 Last Admin: 04/12/21 10:23 Dose: 0.1 mg Documented by: Leflunomide 20 Mg (Tablet) 0 each PO DAILY [facility] Last Admin: 04/10/21 11:12 Dose: Not Given Documented by: Potassium Chloride (Potassium Chloride 10 Meq Tab.Er) 10 meq PO DAILY [facility] Pravastatin Sodium (Pravastatin 20 Mg Tab) 40 mg PO BEDTIME [facility] Last Admin: 04/09/21 20:13 Dose: 40 mg Documented by: Prednisone (Prednisone 1 Mg Tab) 1 mg PO DAILY [facility] Last Admin: 04/10/21 10:22 Dose: 1 mg Documented by: - Exam Quality Assessment: Supplemental Oxygen, Urine Catheter. No: DVT Prophylaxis Urinary Catheter Total Time: 3Days 16Hours General: Alert, Oriented, Cooperative, No Acute Distress HEENT: Pupils Equal, Pupils Reactive, Mucous Membr. Moist/Bruning Neck: Supple, Trachea Midline Lungs: Normal Respiratory Effort, Decreased Breath Sounds, Crackles (worse on left ), Rhonchi Cardiovascular: Regular Rate, Regular Rhythm GI/Abdominal Exam: Normal Bowel Sounds, Soft, Non-Tender, No Distention (Female) Exam: Deferred Extremities: Normal Inspection, Normal Range of Motion, Non-Tender, Normal Capillary Refill, Pedal Edema Skin: Warm, Dry, Intact Neurological: No New Focal Deficit Psy/Mental Status: Alert - Patient Data Lab Results Last 24 hrs: Laboratory Results - last 24 hr 04/12/21 04/12/21 04/13/21 Range/Units 16:28 20:06 06:25 WBC (3.98-10.04) K/mm3 RBC (3.98-5.22) M/mm3 Hgb (11.2-15.7) gm/dl Hct (34.1-44.9) % MCV (79.4-94.8) fl MCH (25.6-32.2) pg MCHC (32.2-35.5) g/dl RDW Std Deviation (36.4-46.3) fL Plt Count (182-369) K/mm3 MPV (9.4-12.3) fl Neut % (Auto) (34.0-71.1) % Lymph % (Auto) (19.3-51.7) % [place] % (Auto) (4.7-12.5) % Eos % (Auto) (0.7-5.8) Baso % (Auto) (0.1-1.2) % Neut # (Auto) (1.56-6.13) K/mm3 Lymph # (Auto) (1.18-3.74) K/mm3 [place] # (Auto) (0.24-0.36) K/mm3 Eos # (Auto) (0.04-0.36) K/mm3 Baso # (Auto) (0.01-0.08) K/mm3 Manual Slide Review Sodium (136-145) mEq/L Potassium (3.5-5.1) mEq/L Chloride (98-107) mEq/L Carbon Dioxide (21-32) mEq/L Anion Gap (5-15) BUN (7-18) mg/dL Creatinine (0.55-1.02) mg/dL Est Cr Clr Drug Dosing mL/min Estimated GFR (MDRD) (>60) mL/min BUN/Creatinine Ratio (14-18) Glucose (70-99) mg/dL POC Glucose 194 H 201 H 101 H (70-99) mg/dL Calcium (8.5-10.1) mg/dL Total Bilirubin (0.2-1.0) mg/dL AST (15-37) U/L ALT (14-59) U/L Alkaline Phosphatase (46-116) U/L NT-Pro-B Natriuret Pep (0-450) pg/mL Total Protein (6.4-8.2) g/dl Albumin (3.4-5.0) g/dl Globulin gm/dL Albumin/Globulin Ratio (1-2) 04/13/21 04/13/21 04/13/21 Range/Units 06:27 06:27 06:27 WBC 4.67 (3.98-10.04) K/mm3 RBC 3.72 L (3.98-5.22) M/mm3 Hgb 9.8 L (11.2-15.7) gm/dl Hct 32.6 L (34.1-44.9) % MCV 87.6 (79.4-94.8) fl MCH 26.3 (25.6-32.2) pg MCHC 30.1 L (32.2-35.5) g/dl RDW Std Deviation 53.6 H (36.4-46.3) fL Plt Count 274 (182-369) K/mm3 MPV 9.2 L (9.4-12.3) fl Neut % (Auto) 61.2 (34.0-71.1) % Lymph % (Auto) 12.6 L (19.3-51.7) % [place] % (Auto) 23.8 H (4.7-12.5) % Eos % (Auto) 2.4 (0.7-5.8) Baso % (Auto) 0.0 L (0.1-1.2) % Neut # (Auto) 2.86 (1.56-6.13) K/mm3 Lymph # (Auto) 0.59 L (1.18-3.74) K/mm3 [place] # (Auto) 1.11 H (0.24-0.36) K/mm3 Eos # (Auto) 0.11 (0.04-0.36) K/mm3 Baso # (Auto) 0.00 L (0.01-0.08) K/mm3 Manual Slide Review Abnormal smear Sodium 146 H (136-145) mEq/L Potassium 3.8 (3.5-5.1) mEq/L Chloride 105 (98-107) mEq/L Carbon Dioxide 36 H (21-32) mEq/L Anion Gap 8.8 (5-15) BUN 65 H (7-18) mg/dL Creatinine 1.9 H D (0.55-1.02) mg/dL Est Cr Clr Drug Dosing 17.24 mL/min Estimated GFR (MDRD) 26 (>60) mL/min BUN/Creatinine Ratio 34.2 H (14-18) Glucose 108 H (70-99) mg/dL POC Glucose (70-99) mg/dL Calcium 8.7 (8.5-10.1) mg/dL Total Bilirubin 0.4 (0.2-1.0) mg/dL AST 186 H (15-37) U/L ALT 520 H (14-59) U/L Alkaline Phosphatase 113 (46-116) U/L NT-Pro-B Natriuret Pep 2794 H (0-450) pg/mL Total Protein 6.7 (6.4-8.2) g/dl Albumin 2.3 L (3.4-5.0) g/dl Globulin 4.4 gm/dL Albumin/Globulin Ratio 0.5 L (1-2) 04/13/21 Range/Units 11:32 WBC (3.98-10.04) K/mm3 RBC (3.98-5.22) M/mm3 Hgb (11.2-15.7) gm/dl Hct (34.1-44.9) % MCV (79.4-94.8) fl MCH (25.6-32.2) pg MCHC (32.2-35.5) g/dl RDW Std Deviation (36.4-46.3) fL Plt Count (182-369) K/mm3 MPV (9.4-12.3) fl Neut % (Auto) (34.0-71.1) % Lymph % (Auto) (19.3-51.7) % [place] % (Auto) (4.7-12.5) % Eos % (Auto) (0.7-5.8) Baso % (Auto) (0.1-1.2) % Neut # (Auto) (1.56-6.13) K/mm3 Lymph # (Auto) (1.18-3.74) K/mm3 [place] # (Auto) (0.24-0.36) K/mm3 Eos # (Auto) (0.04-0.36) K/mm3 Baso # (Auto) (0.01-0.08) K/mm3 Manual Slide Review Sodium (136-145) mEq/L Potassium (3.5-5.1) mEq/L Chloride (98-107) mEq/L Carbon Dioxide (21-32) mEq/L Anion Gap (5-15) BUN (7-18) mg/dL Creatinine (0.55-1.02) mg/dL Est Cr Clr Drug Dosing mL/min Estimated GFR (MDRD) (>60) mL/min BUN/Creatinine Ratio (14-18) Glucose (70-99) mg/dL POC Glucose 179 H (70-99) mg/dL Calcium (8.5-10.1) mg/dL Total Bilirubin (0.2-1.0) mg/dL AST (15-37) U/L ALT (14-59) U/L Alkaline Phosphatase (46-116) U/L NT-Pro-B Natriuret Pep (0-450) pg/mL Total Protein (6.4-8.2) g/dl Albumin (3.4-5.0) g/dl Globulin gm/dL Albumin/Globulin Ratio (1-2) Result Diagrams: 04/13/21 06:27 04/13/21 06:27 Sepsis Event Note - Evaluation Sepsis Screening Result: No Definite Risk - Focused Exam Vital Signs: Vital Signs Temp Pulse Resp BP Pulse Ox 04/13/21 08:47 87 04/13/21 07:39 144/79 H 04/13/21 07:22 97.3 F 87 14 150/100 H 98 - Problem List & Annotations (1) History of non-ST elevation myocardial infarction (NSTEMI) SNOMED Code(s): 327325745 Code(s): I25.2 - OLD MYOCARDIAL INFARCTION Status: Chronic Priority: Low Current Visit: No (2) CAD (coronary artery disease) SNOMED Code(s): 08608910 Code(s): I25.10 - ATHSCL HEART DISEASE OF [place] CORONARY ARTERY W/O ANG PCTRS Status: Chronic Priority: Medium Current Visit: No Qualifiers: Coronary Disease-Associated Artery/Lesion type: unspecified vessel or lesion type [place] vs. transplanted heart: [place] heart Associated angina: unspecified whether angina present Qualified Code(s): I25.10 - Atherosclerotic heart disease of [place] coronary artery without angina pectoris (3) Pulmonary hypertension SNOMED Code(s): 16300249 Code(s): I27.20 - PULMONARY HYPERTENSION, UNSPECIFIED Status: Chronic Priority: Low Current Visit: No (4) PVD (peripheral vascular disease) SNOMED Code(s): 561048099 Code(s): I73.9 - PERIPHERAL VASCULAR DISEASE, UNSPECIFIED Status: Chronic Priority: Low Current Visit: No (5) NUPUR (acute kidney injury) SNOMED Code(s): 87865327, 73053486 Code(s): N17.9 - ACUTE KIDNEY FAILURE, UNSPECIFIED Status: Acute Priority: High Current Visit: Yes (6) Chronic hypoxemic respiratory failure SNOMED Code(s): 718380595 Code(s): J96.11 - CHRONIC RESPIRATORY FAILURE WITH HYPOXIA Status: Chronic Priority: Medium Current Visit: Yes (7) Need for comfort care SNOMED Code(s): 556378041, 258934856 Code(s): UKG3268 - Status: Acute Priority: High Current Visit: Yes (8) Chronic atrial fibrillation SNOMED Code(s): 968623802 Code(s): I48.20 - CHRONIC ATRIAL FIBRILLATION, UNSPECIFIED Status: Chronic Priority: Medium Current Visit: Yes (9) Congestive heart failure SNOMED Code(s): 60698455 Code(s): I50.9 - HEART FAILURE, UNSPECIFIED Status: Chronic Priority: Medium Current Visit: No Qualifiers: Heart failure type: diastolic Heart failure chronicity: acute on chronic Qualified Code(s): I50.33 - Acute on chronic diastolic (congestive) heart failure (10) Anemia SNOMED Code(s): 816709143 Code(s): D64.9 - ANEMIA, UNSPECIFIED Status: Chronic Priority: Medium Current Visit: No Qualifiers: Anemia type: due to chronic kidney disease Chronic kidney disease stage: stage 3 (moderate) Chronic kidney disease stage 3 subtype: stage 3b (GFR 30- 44) Qualified Code(s): N18.32 - Chronic kidney disease, stage 3b; D63.1 - Anemia in chronic kidney disease (11) Atrial fibrillation SNOMED Code(s): 16826559 Code(s): I48.91 - UNSPECIFIED ATRIAL FIBRILLATION Status: Chronic Priority: Medium Current Visit: No Qualifiers: Atrial fibrillation type: unspecified Qualified Code(s): I48.91 - Unspecified atrial fibrillation (12) Chronic renal insufficiency, stage III (moderate) SNOMED Code(s): 706024924 Code(s): N18.30 - CHRONIC KIDNEY DISEASE, STAGE 3 UNSPECIFIED Status: Chronic Priority: Medium Current Visit: No (13) Cor pulmonale, chronic SNOMED Code(s): 44572018 Code(s): I27.81 - COR PULMONALE (CHRONIC) Status: Chronic Priority: Medium Current Visit: No (14) Diabetes mellitus type 2 in obese SNOMED Code(s): 33299320 Code(s): E11.69 - TYPE 2 DIABETES MELLITUS WITH OTHER SPECIFIED COMPLICATION; E66.9 - OBESITY, UNSPECIFIED Status: Chronic Priority: Medium Current Visit: No (15) Diabetic nephropathy Status: Chronic Priority: Medium Current Visit: No Qualifiers: Diabetes mellitus type: type 2 Qualified Code(s): E11.21 - Type 2 diabetes mellitus with diabetic nephropathy (16) LEILANI on CPAP SNOMED Code(s): 39408904 Code(s): G47.33 - OBSTRUCTIVE SLEEP APNEA (ADULT) (PEDIATRIC); Z99.89 - DEPENDENCE ON OTHER ENABLING MACHINES AND DEVICES Status: Chronic Priority: Medium Current Visit: No Annotation/Comment:: compliant with cpap (17) Rheumatoid arthritis SNOMED Code(s): 30039298 Code(s): M06.9 - RHEUMATOID ARTHRITIS, UNSPECIFIED Status: Chronic Prior ity: Medium Current Visit: No Qualifiers: Rheumatoid arthritis location: multiple sites (18) Supplemental oxygen dependent SNOMED Code(s): 986390917725 Code(s): Z99.81 - DEPENDENCE ON SUPPLEMENTAL OXYGEN Status: Chronic Priority: Medium Current Visit: No (19) Constipation SNOMED Code(s): 53692395 Code(s): K59.00 - CONSTIPATION, UNSPECIFIED Status: Acute Priority: High Current Visit: Yes Qualifiers: Constipation type: unspecified constipation type Qualified Code(s): K59.00 - Constipation, unspecified - Problem List Review Problem List Initiated/Reviewed/Updated: Yes - My Orders Last 24 Hours: My Active Orders 04/13/21 06:00 Furosemide [Lasix] 40 mg IVPUSH BIDDIURETIC 04/13/21 11:33 Enema [RC] ASDIRECTED - Assessment Assessment:: 04/12/2021 This is a 80-year-old female who presents to ED on 04/08/2021 with chest pain. She was given morphine and was noted to be hypertensive. Chest x-ray showed increased density within left lung base and findings suspicious for early CHF. Echocardiogram was obtained on 04/09/2021 and interpreted as: 1 study was performed with the patient in atrial fibrillation/flutter. 2. Left ventricular internal cavity size is normal. 3. Global and mildly to moderately decreased left ventricular systolic function. 4. Left ventricular ejection fraction, by visual estimation, is 40 to 45%. 5. Mild septal left ventricular hypertrophy. 6. Right ventricular size is normal. 7. Low normal right ventricular systolic function. 8. Moderately dilated left atrium. 9. The aortic valve is not well visualized. 10. There is moderate aortic valve sclerosis without stenosis. 11. Mild mitral valve regurgitation. 12. The tricuspid valve is not well visualized. 13. Mild tricuspid valve regurgitation. 14. Inferior vena cava is abnormal. 15. Inferior vena cava is dilated with respiratory size variation le ss than 50% consistent with elevated right atrial pressure. 16. The right ventricular systolic pressure is mild to moderately elevated at 42 mmHg. 17. Large left pleural effusion. Retroperitoneal ultrasound was obtained with cysts suggested within the kidneys. No hydronephrosis is seen. Probable medical renal disease as noted above. Mixed cystic and solid abnormality within the pelvis measuring up to 9.9 cm is also noted which may represent uterine fibroid although bladder is not well seen but cannot exclude mass. Consider pelvic ultrasound. Venous ultrasound was obtained and was negative for any DVT. Chest CT scan was obtained showing bilateral pleural effusions worse on the left side and probable atelectasis adjacent to the pleural effusions, worse on the left side. Heart is noted to be enlarged and there is probable cirrhosis within the liver, along with several small calcified gallstones with an incompletely visualized gallbladder. Other nonacute findings are noted. Ultimately patient and family report that they would like comfort cares with minimal continued treatment. Home medications are continued as well as RA treatment. Patient reports that she just wants to be made comfortable and be able to breathe. They wish to continue patient's diabetic medications and blood glucose checks but no other acute treatment. They also wish for hospice consult. Due to the holiday hospice consultation and case management/social work consultation are unable to be obtained until tomorrow. Likely discharge in 1 to 2 days pending hospice consult. Length of stay greater than 96 hours pending disposition plan. 04/13/2021 80-year-old female admitted to the hospital with chest pain and hypertension. After admission she went into worsening renal failure and has been noted to have bilateral pleural effusions worse on the left side. Ultimately patient and family decided on comfort cares however the we are continuing treatment with diuretics and then attempt to improve her pleural effusions as the patient's only request is to be as comfortable as possible with breathing. She has been utilizing BiPAP with an oxygen bleed in. She reports significant constipation today and there has been no bowel movements for several days. As needed laxa tives and stool softeners have not worked so a fleets enema was given with a small bowel movement. Patient does report she feels better overall and that she does not feel constipated currently. As we have been adjusting patient's Lasix Dr. Smith did discuss plan with the patient and they are in agreement to let us check labs today. WBC is 4.67. Hemoglobin 9.8. Neutrophils are normal at 61.2%. Sodium is slightly elevated at 146. Potassium 3.8. Carbon dioxide 36. Anion gap 8.8. BUN is 65. Creatinine 1.9. GFR is 26. Glucose is 108. Total bilirubin 0.4 AST is 186. ALT 520. Alkaline phosphatase is 113. proBNP is 2794. Social work has been working on arranging hospice, per the patient's wishes and they will be here to see the patient this afternoon. Hopeful for discharge in next 1 to 2 days into hospice care. We will continue current treatment plan. Rodriguez catheter remains in place for comfort care. - Plan Plan:: Assessment: This 80-year-old female with multiple medical problems including atrial fibrillation, heart failure, CT/NSTEMI, pulmonary hypertension, peripheral vascular disease, aortic stenosis, cor pulmonale, LEILANI, rheumatoid arthritis, insulin-dependent diabetes presenting for evaluation of chest pain and sob. The patient endorses pleuritic intermittent chest pain and SOB. CXR concerning for CHF vs PNA, EKG with Afib, Trop WNL, BNP elevated. 1. Pleuritic chest pain/SOB; suspected acute CHF exacerbation vs PNA; PE less likely as patient anticoagulated; CT chest showing bilateral pleural effusion 2. Hx of CAD/NSTEMI/Pulm HTN 3. Hx of Atrial Fibrillation 4. Hx of Peripheral vascular disease 5. Acute renal failure/Hx of CKD Stage III 6. Hx of LEILANI on nocturnal bipap 7. Chronic hypoxic respiratory failure; baseline oxygen requirements 2-6 liters 8. Hx of Rheumatoid Arthritis 9. Hx of Insulin dependent Type II DM 10. Anemia of chronic kidney disease 11. Constipation Plan -Goals of care discussed with patient and daughter 04/11 and transitioned to comfort care -patient does not want transfer to higher level care for nephrology consult/cardiology consult -states she would not want dialysis if kidney failure progresses -does not want further imaging studies/thoracentesis/blood tests -her main goal is to improve SOB but realizes that this may not be feasible -she states she is ready to if the time has come and she has been able to visit with family and grandkids -her current requests is to stop IVF, try lasix while understanding that renal function may worsen -SW consult/hospice consult 04/12 -supplemental potassium ordered -echo completed -lower extremity doppler venous US negative for dvt -discontinue omnicef/azithromycin -renal US completed -unable to obtain CT PE study due to renal function; unable to obtain Vq scan till Monday -continue anticoagulation -given hypotension holding antihypertensives and starting solumedrol (04/10)-> transition back to baseline prednisone -discontinue tele -Increase daily lasix dosing in an attempt to improve pleural effusions -PRN morphine for pain/dyspnea -Nitroglycerine patch for vasodilation -Continue home medications as per patient -O2 PRN -Continue PRN/nightly BiPAP -Continue PRN laxitives/stool softeners -Enema today Code status-DNR/DNI/Comfort care DVT PPx -on eliquis Dispo-estimated discharge in 1-2 days; pending hospice evaluation Length of stay greater than 96 hours pending disposition plan.
[2021-04-13] MEDS: Morphine 2 MG/ML SYRINGE IVPUSH PRN (15:00)
[2021-04-13] MEDS: Melatonin 3 MG Tab PO SCH (20:03)
[2021-04-14] MEDS: LORazepam 2 MG/ML SDV IVPUSH PRN ×5 (00:44→20:34)
[2021-04-14] MEDS: Furosemide 40 MG/4 ML VIAL IVPUSH SCH ×2 (06:08→14:08)
[2021-04-14] MEDS: Insulin Lispro 100 UNIT/ML 10 ML Vial SUBCUT SCH ×4 (06:23→21:31)
[2021-04-14] MEDS: Pantoprazole 40 MG Tab.CR PO SCH (09:22)
[2021-04-14] MEDS: predniSONE 1 MG Tab PO SCH (09:22)
[2021-04-14] MEDS: Digoxin 125 MCG Tab PO SCH (09:22)
[2021-04-14] MEDS: Potassium Chloride 20 MEQ Tab.ER PO SCH ×2 (09:23→20:30)
[2021-04-14] MEDS: Magnesium Oxide 400 MG Tab PO SCH (09:23)
[2021-04-14] MEDS: Insulin Glarg,Human.Rec.Analog 100 Unit/ML SUBCUT SCH ×2 (09:23→20:32)
[2021-04-14] MEDS: Diltiazem 180 MG Cap.CD PO SCH (09:23)
[2021-04-14] MEDS: Hydroxychloroquine 200 MG Tab PO SCH (09:24)
[2021-04-14] MEDS: Leflunomide 20 MG Tablet **PTOM PO SCH (09:24)
--- NOTE | 2021-04-14 11:17 | PCM.PN ---
<Domenic Barrett - Last Filed: 04/14/21 11:12> - General Info Date of Service: 04/14/21 Admission Dx/Problem (Free Text): Admission Diagnosis/Problem Admission Diagnosis/Problem CHF, Congestive heart failure Functional Status: Reports: Pain Controlled, Urinating. Denies: Tolerating Diet (minimal intake ), Ambulating, New Symptoms - Review of Systems General: Reports: No Symptoms, Weakness, Fatigue, Malaise. Denies: Fever, Chills HEENT: Reports: No Symptoms. Denies: Headaches, Sore Throat Pulmonary: Reports: Shortness of Breath, Cough. Denies: Pleuritic Chest Pain, Sputum, Wheezing Cardiovascular: Reports: Dyspnea on Exertion, Edema. Denies: Chest Pain, Palpitations Gastrointestinal: Reports: Constipation, Decreased Appetite. Denies: Abdominal Pain, Diarrhea, Nausea, Vomiting Genitourinary: Reports: No Symptoms. Denies: Pain Musculoskeletal: Reports: No Symptoms Skin: Reports: No Symptoms. Denies: Cyanosis Neurological: Reports: No Symptoms, Difficulty Walking, Weakness, Gait Disturban ce. Denies: Confusion, Numbness, Pre-Existing Deficit, Seizure, Tingling Psychiatric: Reports: No Symptoms - Patient Data Vitals - Most Recent: Last Vital Signs Temp 97.5 F 04/14/21 07:27 Pulse 90 04/14/21 09:22 Resp 20 04/14/21 07:27 BP 162/95 H 04/14/21 07:27 Pulse Ox 100 04/14/21 07:27 Weight - Most Recent: 284 lb I&O - Last 24 Hours: Intake & Output 04/13/21 04/14/21 04/14/21 22:59 06:59 14:59 Intake Total 800 250 320 Output Total 1700 1700 Balance -900 -1450 320 Lab Results Last 24 Hours: Laboratory Results - last 24 hr 04/13/21 04/13/21 04/13/21 Range/Units 11:32 16:45 20:52 POC Glucose 179 H 189 H 269 H (70-99) mg/dL 04/14/21 04/14/21 Range/Units 06:13 11:04 POC Glucose 119 H 205 H (70-99) mg/dL Med Orders - Current: Current Medications Acetaminophen (Acetaminophen 325 Mg Tab) 650 mg PO Q4H PRN PRN Reason: Pain (Mild 1-3)/fever Bisacodyl (Bisacodyl 10 Mg Supp) 10 mg RECTAL Q12H PRN PRN Reason: Constipation Last Admin: 04/12/21 17:11 Dose: 10 mg Documented by: Digoxin (Digoxin 125 Mcg Tab) 62.5 mcg PO DAILY [facility] Last Admin: 04/14/21 09:22 Dose: 62.5 mcg Documented by: Diltiazem HCl (Diltiazem 180 Mg Cap.Cd) 360 mg PO DAILY [facility] Last Admin: 04/14/21 09:23 Dose: 360 mg Documented by: Docusate Sodium (Docusate Sodium 100 Mg Cap) 100 mg PO BID PRN PRN Reason: Constipation Last Admin: 04/13/21 08:54 Dose: 100 mg Documented by: Furosemide (Furosemide 40 Mg/4 Ml Vial) 40 mg IVPUSH BIDDIURETIC [facility] Last Admin: 04/14/21 06:08 Dose: 40 mg Documented by: Hydromorphone HCl (Hydromorphone 0.5 Mg/0.5 Ml Syringe) 0.25 mg IVPUSH Q2H PRN PRN Reason: Pain (moderate 4-6) Hydroxychloroquine Sulfate (Hydroxychloroquine 200 Mg Tab) 200 mg PO DAILY [facility] Last Admin: 04/14/21 09:24 Dose: 200 mg Documented by: Insulin Glargine (Insulin Glarg,Human.Rec.Analog 100 Unit/Ml) 23 unit SUBCUT BID [facility] Last Admin: 04/14/21 09:23 Dose: 23 units Documented by: Insulin Human Lispro (Insulin Lispro 100 Unit/Ml 10 Ml Vial) 0 unit SUBCUT QIDACANDBED [facility]; Protocol Last Admin: 04/14/21 06:23 Dose: Not Given Documented by: Lorazepam (Lorazepam 2 Mg/Ml Sdv) 0.5 mg IVPUSH Q3H PRN PRN Reason: Anxiety Last Admin: 04/14/21 09:24 Dose: 0.5 mg Documented by: Magnesium Oxide (Magnesium Oxide 400 Mg Tab) 400 mg PO DAILY [facility] Last Admin: 04/14/21 09:23 Dose: 400 mg Documented by: Melatonin (Melatonin 3 Mg Tab) 3 mg PO BEDTIME [facility] Last Admin: 04/13/21 20:03 Dose: 3 mg Documented by: Morphine Sulfate (Morphine 2 Mg/Ml Syringe) 1 mg IVPUSH Q2H PRN PRN Reason: comfort care/respiratory Last Admin: 04/13/21 15:00 Dose: 1 mg Documented by: Nitroglycerin (Nitroglycerin 0.4 Mg Tab.Sl) 0.4 mg SL Q5M PRN PRN Reason: Chest Pain Ondansetron HCl (Ondansetron 4 Mg/2 Ml Sdv) 4 mg IV Q4H PRN PRN Reason: Nausea/Vomiting Last Admin: 04/09/21 13:00 Dose: 4 mg Documented by: Pantoprazole Sodium (Pantoprazole 40 Mg Tab.Cr) 40 mg PO DAILY [facility] Last Admin: 04/14/21 09:22 Dose: 40 mg Documented by: Leflunomide 20 Mg (Tablet Ptom) 0 each PO DAILY [facility] Last Admin: 04/14/21 09:24 Dose: 20 each Documented by: Potassium Chloride (Potassium Chloride 20 Meq Tab.Er) 20 meq PO BID [facility] Last Admin: 04/14/21 09:23 Dose: 20 meq Documented by: Prednisone (Prednisone 1 Mg Tab) 1 mg PO WITHBREAKFAST@0800 [facility] Last Admin: 04/14/21 09:22 Dose: 1 mg Documented by: Senna (Sennosides 8.6 Mg Tab) 8.6 mg PO DAILY PRN PRN Reason: Constipation Last Admin: 04/12/21 08:07 Dose: 8.6 mg Documented by: Sodium Chloride (Sodium Chloride 0.9% 10 Ml Syringe) 10 ml FLUSH ASDIRECTED PRN PRN Reason: Keep Vein Open Last Admin: 04/08/21 18:50 Dose: 10 ml Documented by: Discontinued Medications Apixaban (Apixaban 5 Mg Tab) 5 mg PO BID [facility] Last Admin: 04/10/21 10:21 Dose: 5 mg Documented by: Azithromycin (Azithromycin 250 Mg Tab) 500 mg PO DAILY [facility] Last Admin: 04/11/21 08:09 Dose: 500 mg Documented by: Calcium Carbonate/Glycine (Calcium Carbonate 500 Mg Tab.Chew) 500 mg PO Q8H PRN PRN Reason: Indigestion Last Admin: 04/09/21 13:01 Dose: 500 mg Documented by: Carvedilol (Carvedilol 12.5 Mg Tab) 25 mg PO BID [facility] Last Admin: 04/10/21 10:30 Dose: Not Given Documented by: Cefdinir (Cefdinir 300 Mg Cap) 300 mg PO DAILY [facility] Last Admin: 04/11/21 08:08 Dose: 300 mg Documented by: Ezetimibe (Ezetimibe 10 Mg Tab) 10 mg PO BEDTIME [facility] Last Admin: 04/09/21 20:13 Dose: 10 mg Documented by: Furosemide (Furosemide 40 Mg/4 Ml Vial) 40 mg IVPUSH DAILY [facility] Last Admin: 04/09/21 09:45 Dose: 40 mg Documented by: Furosemide (Furosemide 40 Mg/4 Ml Vial) 40 mg IVPUSH 1600 [facility] Last Admin: 04/09/21 16:29 Dose: 40 mg Documented by: Furosemide (Furosemide 20 Mg/2 Ml Vial) 20 mg IVPUSH 1600 [facility] Furosemide (Furosemide 20 Mg/2 Ml Vial) 20 mg IVPUSH TID [facility] Last Admin: 04/12/21 15:55 Dose: 20 mg Documented by: Furosemide (Furosemide 40 Mg/4 Ml Vial) 40 mg IVPUSH NOW ONE Stop: 04/12/21 10:12 Last Admin: 04/12/21 10:22 Dose: 40 mg Documented by: Furosemide (Furosemide 40 Mg/4 Ml Vial) Confirm Administered Dose 40 mg .ROUTE .STK-MED ONE Stop: 04/12/21 15:50 Last Admin: 04/12/21 16:36 Dose: Not Given Documented by: Furosemide (Furosemide 20 Mg/2 Ml Vial) Confirm Administered Dose 20 mg .ROUTE .STK-MED ONE Stop: 04/12/21 15:56 Last Admin: 04/12/21 16:35 Dose: 20 mg Documented by: Sodium Chloride (Normal Saline) 500 mls @ 125 mls/hr IV .BOLUS ONE Stop: 04/09/21 22:23 Last Admin: 04/09/21 18:46 Dose: 125 mls/hr Documented by: Albumin Human 12.5 gm/ Premix 50 mls @ 50 mls/hr IV Q1H [facility] Last Admin: 04/09/21 19:07 Dose: Not Given Documented by: Albumin Human 12.5 gm/ Premix 50 mls @ 50 mls/hr IV ONETIME ONE Stop: 04/09/21 19:35 Last Admin: 04/09/21 18:46 Dose: 50 mls/hr Documented by: Lactated Ringer's (Ringers, Lactated) 500 mls @ 250 mls/hr IV ONETIME ONE Stop: 04/10/21 00:29 Last Admin: 04/10/21 01:12 Dose: 250 mls/hr Documented by: Albumin Human 12.5 gm/ Premix 50 mls @ 50 mls/hr IV ONETIME ONE Stop: 04/10/21 08:14 Last Admin: 04/10/21 07:30 Dose: 50 mls/hr Documented by: Sodium Chloride (Normal Saline) 1,000 mls @ 125 mls/hr IV ASDIRECTED CJ Stop: 04/10/21 11:46 Sodium Chloride (Normal Saline) 500 mls @ 125 mls/hr IV ASDIRECTED CJ Stop: 04/10/21 12:21 Last Admin: 04/10/21 08:29 Dose: 125 mls/hr Documented by: Albumin Human 12.5 gm/ Premix 50 mls @ 50 mls/hr IV Q1H [facility] Last Admin: 04/10/21 16:58 Dose: Not Given Documented by: Furosemide 100 mg/ Sodium (Chloride) 100 mls @ 5 mls/hr IV TITRATE CJ; Protocol Last Admin: 04/11/21 07:04 Dose: 5 mg/hr, 5 mls/hr Documented by: Albumin Human 12.5 gm/ Premix 50 mls @ 50 mls/hr IV ONETIME ONE Stop: 04/10/21 13:03 Last Admin: 04/10/21 12:21 Dose: 50 mls/hr Documented by: Lorazepam (Lorazepam 0.5 Mg Tab) 0.25 mg PO Q12H PRN PRN Reason: Anxiety Methylprednisolone Sodium Succinate (Methylprednisolone Sodium Succinate 40 Mg/1 Ml Sdv) 40 mg IVPUSH Q8H [facility] Last Admin: 04/10/21 12:16 Dose: 40 mg Documented by: Miscellaneous Information (Remove Nitroglycerin Patch) 1 ea TRDERM ONETIME ONE Stop: 04/12/21 23:01 Last Admin: 04/12/21 22:46 Dose: Not Given Documented by: Morphine Sulfate (Morphine 2 Mg/Ml Syringe) 2 mg IVPUSH ONETIME ONE Stop: 04/08/21 19:29 Last Admin: 04/08/21 19:46 Dose: 2 mg Documented by: Morphine Sulfate (Morphine 2 Mg/Ml Syringe) 2 mg IVPUSH ONETIME ONE Stop: 04/08/21 20:38 Last Admin: 04/08/21 20:47 Dose: 2 mg Documented by: Morphine Sulfate (Morphine 2 Mg/Ml Syringe) 2 mg IVPUSH ONETIME ONE Stop: 04/09/21 00:18 Last Admin: 04/09/21 00:22 Dose: 2 mg Documented by: Morphine Sulfate (Morphine 2 Mg/Ml Syringe) 2 mg IVPUSH Q1H PRN PRN Reason: Chest Pain Last Admin: 04/09/21 13:01 Dose: 2 mg Documented by: Morphine Sulfate (Morphine 2 Mg/Ml Syringe) Confirm Administered Dose 2 mg .ROUTE .STK-MED ONE Stop: 04/09/21 05:01 Last Admin: 04/09/21 05:15 Dose: Not Given Documented by: Nitroglycerin (Nitroglycerin 0.1 Mg/Hr Transdermal Patch) 0.1 mg TRDERM ONETIME ONE Stop: 04/12/21 10:12 Last Admin: 04/12/21 10:23 Dose: 0.1 mg Documented by: Leflunomide 20 Mg (Tablet) 0 each PO DAILY [facility] Last Admin: 04/10/21 11:12 Dose: Not Given Documented by: Potassium Chloride (Potassium Chloride 10 Meq Tab.Er) 10 meq PO DAILY [facility] Pravastatin Sodium (Pravastatin 20 Mg Tab) 40 mg PO BEDTIME [facility] Last Admin: 04/09/21 20:13 Dose: 40 mg Documented by: Prednisone (Prednisone 1 Mg Tab) 1 mg PO DAILY [facility] Last Admin: 04/10/21 10:22 Dose: 1 mg Documented by: - Exam Quality Assessment: Supplemental Oxygen, Urine Catheter. No: DVT Prophylaxis (Comfort care ) Urinary Catheter Total Time: 4Days 15Hours General: Alert, Oriented, Cooperative, No Acute Distress HEENT: Pupils Equal, Pupils Reactive, Mucous Membr. Moist/[place] Neck: Supple, Trachea Midline Lungs: Decreased Breath Sounds, Rhonchi (worse on left). No: Wheezing Cardiovascular: Regular Rate, Regular Rhythm GI/Abdominal Exam: Normal Bowel Sounds, Soft, Non-Tender, No Distention (Female) Exam: Deferred Extremities: Normal Inspection, Normal Range of Motion, Non-Tender, Normal Capillary Refill, Pedal Edema Skin: Warm, Dry, Intact Neurological: No New Focal Deficit Psy/Mental Status: Alert - Patient Data Lab Results Last 24 hrs: Laboratory Results - last 24 hr 04/13/21 04/13/21 04/13/21 Range/Units 11:32 16:45 20:52 POC Glucose 179 H 189 H 269 H (70-99) mg/dL 04/14/21 04/14/21 Range/Units 06:13 11:04 POC Glucose 119 H 205 H (70-99) mg/dL Result Diagrams: 04/13/21 06:27 04/13/21 06:27 Sepsis Event Note - Evaluation Sepsis Screening Result: No Definite Risk - Focused Exam Vital Signs: Vital Signs Temp Pulse Resp BP Pulse Ox 04/14/21 09:22 90 04/14/21 07:27 97.5 F 90 20 162/95 H 100 - Problem List & Annotations (1) History of non-ST elevation myocardial infarction (NSTEMI) SNOMED Code(s): 372065597 Code(s): I25.2 - OLD MYOCARDIAL INFARCTION Status: Chronic Priority: Low Current Visit: No (2) CAD (coronary artery disease) SNOMED Code(s): 63382477 Code(s): I25.10 - ATHSCL HEART DISEASE OF [place] CORONARY ARTERY W/O ANG PCTRS Status: Chronic Priority: Medium Current Visit: No Qualifiers: Coronary Disease-Associated Artery/Lesion type: unspecified vessel or lesion type [place] vs. transplanted heart: [place] heart Associated angina: unspecified whether angina present Qualified Code(s): I25.10 - Atherosclerotic heart disease of [place] coronary artery without angina pectoris (3) Pulmonary hypertension SNOMED Code(s): 08828284 Code(s): I27.20 - PULMONARY HYPERTENSION, UNSPECIFIED Status: Chronic Priority: Low Current Visit: No (4) PVD (peripheral vascular disease) SNOMED Code(s): 391715018 Code(s): I73.9 - PERIPHERAL VASCULAR DISEASE, UNSPECIFIED Status: Chronic Priority: Low Current Visit: No (5) NUPUR (acute kidney injury) SNOMED Code(s): 96367954, 46335002 Code(s): N17.9 - ACUTE KIDNEY FAILURE, UNSPECIFIED Status: Acute P riority: High Current Visit: Yes (6) Chronic hypoxemic respiratory failure SNOMED Code(s): 935358001 Code(s): J96.11 - CHRONIC RESPIRATORY FAILURE WITH HYPOXIA Status: Chronic Priority: Medium Current Visit: Yes (7) Need for comfort care SNOMED Code(s): 671126784, 028134512 Code(s): SCE8651 - Status: Acute Priority: High Current Visit: Yes (8) Chronic atrial fibrillation SNOMED Code(s): 678170920 Code(s): I48.20 - CHRONIC ATRIAL FIBRILLATION, UNSPECIFIED Status: Chronic Priority: Medium Current Visit: Yes (9) Congestive heart failure SNOMED Code(s): 07285864 Code(s): I50.9 - HEART FAILURE, UNSPECIFIED Status: Chronic Priority: Medium Current Visit: No Qualifiers: Heart failure type: diastolic Heart failure chronicity: acute on chronic Qualified Code(s): I50.33 - Acute on chronic diastolic (congestive) heart failure (10) Anemia SNOMED Code(s): 759662758 Code(s): D64.9 - ANEMIA, UNSPECIFIED Status: Chronic Priority: Medium Current Visit: No Qualifiers: Anemia type: due to chronic kidney disease Chronic kidney disease stage: stage 3 (moderate) Chronic kidney disease stage 3 subtype: stage 3b (GFR 30- 44) Qualified Code(s): N18.32 - Chronic kidney disease, stage 3b; D63.1 - Anemia in chronic kidney disease (11) Atrial fibrillation SNOMED Code(s): 85206595 Code(s): I48.91 - UNSPECIFIED ATRIAL FIBRILLATION Status: Chronic Priority: Medium Current Visit: No Qualifiers: Atrial fibrillation type: unspecified Qualified Code(s): I48.91 - Unspecified atrial fibrillation (12) Chronic renal insufficiency, stage III (moderate) SNOMED Code(s): 219899197 Code(s): N18.30 - CHRONIC KIDNEY DISEASE, STAGE 3 UNSPECIFIED Status: Chronic Priority: Medium Current Visit: No (13) Cor pulmonale, chronic SNOMED Code(s): 57658521 Code(s): I27.81 - COR PULMONALE (CHRONIC) Status: Chronic Priority: Medium Current Visit: No (14) Diabetes mellitus type 2 in obese SNOMED Code(s): 87574778 Code(s): E11.69 - TYPE 2 DIABETES MELLITUS WITH OTHER SPECIFIED COMPLICATION; E66.9 - OBESITY, UNSPECIFIED Status: Chronic Priority: Medium Current Visit: No (15) Diabetic nephropathy Status: Chronic Priority: Medium Current Visit: No Qualifiers: Diabetes mellitus type: type 2 Qualified Code(s): E11.21 - Type 2 diabetes mellitus with diabetic nephropathy (16) LEILANI on CPAP SNOMED Code(s): 93291564 Code(s): G47.33 - OBSTRUCTIVE SLEEP APNEA (ADULT) (PEDIATRIC); Z99.89 - DEPENDENCE ON OTHER ENABLING MACHINES AND DEVICES Status: Chronic Priority: Medium Current Visit: No Annotation/Comment:: compliant with cpap (17) Rheumatoid arthritis SNOMED Code(s): 03646196 Code(s): M06.9 - RHEUMATOID ARTHRITIS, UNSPECIFIED Status: Chronic Priority: Medium Current Visit: No Qualifiers: Rheumatoid arthritis location: multiple sites (18) Supplemental oxygen dependent SNOMED Code(s): 565906237440 Code(s): Z99.81 - DEPENDENCE ON SUPPLEMENTAL OXYGEN Status: Chronic Priority: Medium Current Visit: No (19) Constipation SNOMED Code(s): 26161651 Code(s): K59.00 - CONSTIPATION, UNSPECIFIED Status: Acute Priority: High Current Visit: Yes Qualifiers: Constipation type: unspecified constipation type Qualified Code(s): K59.00 - Constipation, unspecified - Problem List Review Problem List Initiated/Reviewed/Updated: Yes - My Orders Last 24 Hours: My Active Orders 04/14/21 09:41 Enema [RC] ASDIRECTED - Assessment Assessment:: 04/12/2021 This is a 80-year-old female who presents to ED on 04/08/2021 with chest pain. She was given morphine and was noted to be hypertensive. Chest x-ray showed increased density within left lung base and findings suspicious for early CHF. Echocardiogram was obtained on 04/09/2021 and interpreted as: 1 study was performed with the patient in atrial fibrillation/flutter. 2. Left ventricular internal cavity size is normal. 3. Global and mildly to moderately decreased left ventricular systolic function. 4. Left ventricular ejection fraction, by visual estimation, is 40 to 45%. 5. Mild septal left ventricular hypertrophy. 6. Right ventricular size is normal. 7. Low normal right ventricular systolic function. 8. Moderately dilated left atrium. 9. The aortic valve is not well visualized. 10. There is moderate aortic valve sclerosis without stenosis. 11. Mild mitral valve regurgitation. 12. The tricuspid valve is not well visualized. 13. Mild tricuspid valve regurgitation. 14. Inferior vena cava is abnormal. 15. Inferior vena cava is dilated with respiratory size variation less than 50% consistent with elevated right atrial pressure. 16. The right ventricular systolic pressure is mild to moderately elevated at 42 mmHg. 17. Large left pleural effusion. Retroperitoneal ultrasound was obtained with cysts suggested within the kidneys. No hydronephrosis is seen. Probable medical renal disease as noted above. Mixed cystic and solid abnormality within the pelvis measuring up to 9.9 cm is also noted which may represent uterine fibroid although bladder is not well seen but cannot exclude mass. Consider pelvic ultrasound. Venous ultrasound was obtained and was negative for any DVT. Chest CT scan was obtained showing bilateral pleural effusions worse on the left side and probable atelectasis adjacent to the pleural effusions, worse on the left side. Heart is noted to be enlarged and there is probable cirrhosis within the liver, along with several small calcified gallstones with an incompletely v isualized gallbladder. Other nonacute findings are noted. Ultimately patient and family report that they would like comfort cares with minimal continued treatment. Home medications are continued as well as RA treatment. Patient reports that she just wants to be made comfortable and be able to breathe. They wish to continue patient's diabetic medications and blood glucose checks but no other acute treatment. They also wish for hospice consult. Due to the holiday hospice consultation and case management/social work consultation are unable to be obtained until tomorrow. Likely discharge in 1 to 2 days pending hospice consult. Length of stay greater than 96 hours pending disposition plan. 04/13/2021 80-year-old female admitted to the hospital with chest pain and hypertension. After admission she went into worsening renal failure and has been noted to have bilateral pleural effusions worse on the left side. Ultimately patient and family decided on comfort cares however the we are continuing treatment with diuretics and then attempt to improve her pleural effusions as the patient's only request is to be as comfortable as possible with breathing. She has been utilizing BiPAP with an oxygen bleed in. She reports significant constipation today and there has been no bowel movements for several days. As needed laxatives and stool softeners have not worked so a fleets enema was given with a small bowel movement. Patient does report she feels better overall and that she does not feel constipated currently. As we have been adjusting patient's Lasix Dr. Smith did discuss plan with the patient and they are in agreement to let us check labs today. WBC is 4.67. Hemoglobin 9.8. Neutrophils are normal at 61.2%. Sodium is slightly elevated at 146. Potassium 3.8. Carbon dioxide 36. Anion gap 8.8. BUN is 65. Creatinine 1.9. GFR is 26. Glucose is 108. Total bilirubin 0.4 AST is 186. ALT 520. Alkaline phosphatase is 113. proBNP is 2794. Social work has been working on arranging hospice, per the patient's wishes and they will be here to see the patient this afternoon. Hopeful for discharge in next 1 to 2 days into hospice care. We will continue current treatment plan. Rodriguez catheter remains in place for comfort care. 04/14/2021 80-year-old female admitted for chest pain and hypertension with bilateral pleural effusions. She has been on comfort cares while here however she is receiving some treatment. She has been utilizing BiPAP. Today she states she feels a little better than she has in days past. She is still quite constipated. She did receive an enema yesterday which resulted in a very small hard bowel movement. We will repeat enema today. No labs were obtained today. Plan is for patient to discharge to hospice tomorrow afternoon. - Plan Plan:: Assessment: This 80-year-old female with multiple medical problems including atrial fibrillation, heart failure, CA/NSTEMI, pulmonary hypertension, peripheral vascular disease, aortic stenosis, cor pulmonale, LEILANI, rheumatoid arthritis, insulin-dependent diabetes presenting for evaluation of chest pain and sob. The patient endorses pleuritic intermittent chest pain and SOB. CXR concerning for CHF vs PNA, EKG with Afib, Trop WNL, BNP elevated. 1. Pleuritic chest pain/SOB; suspected acute CHF exacerbation vs PNA; PE less likely as patient anticoagulated; CT chest showing bilateral pleural effusion 2. Hx of CAD/NSTEMI/Pulm HTN 3. Hx of Atrial Fibrillation 4. Hx of Peripheral vascular disease 5. Acute renal failure/Hx of CKD Stage III 6. Hx of LEILANI on nocturnal bipap 7. Chronic hypoxic respiratory failure; baseline oxygen requirements 2-6 liters 8. Hx of Rheumatoid Arthritis 9. Hx of Insulin dependent Type II DM 10. Anemia of chronic kidney disease 11. Constipation Plan -Goals of care discussed with patient and daughter 7/4 and transitioned to comfort care -patient does not want transfer to higher level care for nephrology consu lt/cardiology consult -states she would not want dialysis if kidney failure progresses -does not want further imaging studies/thoracentesis/blood tests -her main goal is to improve SOB but realizes that this may not be feasible -she states she is ready to if the time has come and she has been able to visit with family and grandkids -her current requests is to stop IVF, try lasix while understanding that renal function may worsen -SW consult/hospice consult 04/12 -supplemental potassium ordered -echo completed -lower extremity doppler venous US negative for dvt -discontinue omnicef/azithromycin -renal US completed -unable to obtain CT PE study due to renal function; unable to obtain Vq scan till Monday -discontinue anticoagulation -given hypotension holding antihypertensives and starting solumedrol (04/10)-> transition back to baseline prednisone -discontinue tele -Increase daily lasix dosing in an attempt to improve pleural effusions -PRN morphine for pain/dyspnea -Nitroglycerine patch for vasodilation -Continue home medications as per patient -O2 PRN -Continue PRN/nightly BiPAP -Continue PRN laxitives/stool softeners -Repeat Enema today -Contact Dr. Ramirez to discuss patient/discharge plan. Code status-DNR/DNI/Comfort care DVT PPx -none (comfort care) Dispo-anticipate discharge tomorrow to hospice. Length of stay greater than 96 hours pending disposition plan. <José Miguel Chopra Jr - Last Filed: 04/15/21 05:58> - Patient Data Vitals - Most Recent: Last Vital Signs Temp 97.9 F 04/14/21 20:06 Pulse 82 04/14/21 20:06 Resp 18 04/14/21 20:06 BP 161/67 H 04/14/21 20:06 Pulse Ox 99 04/14/21 20:06 I&O - Last 24 Hours: Intake & Output 04/14/21 04/14/21 04/15/21 14:59 22:59 06:59 Intake Total 520 1320 300 Output Total 1800 850 Balance 520 -480 -550 Lab Results Last 24 Hours: Laboratory Results - last 24 hr 04/14/21 04/14/21 04/14/21 Range/Units 06:13 11:04 16:16 POC Glucose 119 H 205 H 187 H (70-99) mg/dL 04/14/21 Range/Units 20:11 POC Glucose 257 H (70-99) mg/dL Med Orders - Current: Current Medications Acetaminophen (Acetaminophen 325 Mg Tab) 650 mg PO Q4H PRN PRN Reason: Pain (Mild 1-3)/fever Bisacodyl (Bisacodyl 10 Mg Supp) 10 mg RECTAL Q12H PRN PRN Reason: Constipation Last Admin: 04/12/21 17:11 Dose: 10 mg Documented by: Digoxin (Digoxin 125 Mcg Tab) 62.5 mcg PO DAILY [facility] Last Admin: 04/14/21 09:22 Dose: 62.5 mcg Documented by: Diltiazem HCl (Diltiazem 180 Mg Cap.Cd) 360 mg PO DAILY [facility] Last Admin: 04/14/21 09:23 Dose: 360 mg Documented by: Docusate Sodium (Docusate Sodium 100 Mg Cap) 100 mg PO BID PRN PRN Reason: Constipation Last Admin: 04/13/21 08:54 Dose: 100 mg Documented by: Furosemide (Furosemide 40 Mg/4 Ml Vial) 40 mg IVPUSH BIDDIURETIC [facility] Last Admin: 04/15/21 05:16 Dose: 40 mg Documented by: Hydromorphone HCl (Hydromorphone 0.5 Mg/0.5 Ml Syringe) 0.25 mg IVPUSH Q2H PRN PRN Reason: Pain (moderate 4-6) Hydroxychloroquine Sulfate (Hydroxychloroquine 200 Mg Tab) 200 mg PO DAILY [facility] Last Admin: 04/14/21 09:24 Dose: 200 mg Documented by: Insulin Glargine (Insulin Glarg,Human.Rec.Analog 100 Unit/Ml) 23 unit SUBCUT BID [facility] Last Admin: 04/14/21 20:32 Dose: 23 units Documented by: Insulin Human Lispro (Insulin Lispro 100 Unit/Ml 10 Ml Vial) 0 unit SUBCUT QI DACANDBED [facility]; Protocol Last Admin: 04/14/21 21:31 Dose: 6 unit Documented by: Lorazepam (Lorazepam 2 Mg/Ml Sdv) 0.5 mg IVPUSH Q3H PRN PRN Reason: Anxiety Last Admin: 04/14/21 20:34 Dose: 0.5 mg Documented by: Magnesium Oxide (Magnesium Oxide 400 Mg Tab) 400 mg PO DAILY [facility] Last Admin: 04/14/21 09:23 Dose: 400 mg Documented by: Melatonin (Melatonin 3 Mg Tab) 3 mg PO BEDTIME [facility] Last Admin: 04/14/21 20:30 Dose: 3 mg Documented by: Morphine Sulfate (Morphine 2 Mg/Ml Syringe) 1 mg IVPUSH Q2H PRN PRN Reason: comfort care/respiratory Last Admin: 04/14/21 21:32 Dose: 1 mg Documented by: Nitroglycerin (Nitroglycerin 0.4 Mg Tab.Sl) 0.4 mg SL Q5M PRN PRN Reason: Chest Pain Ondansetron HCl (Ondansetron 4 Mg/2 Ml Sdv) 4 mg IV Q4H PRN PRN Reason: Nausea/Vomiting Last Admin: 04/09/21 13:00 Dose: 4 mg Documented by: Pantoprazole Sodium (Pantoprazole 40 Mg Tab.Cr) 40 mg PO DAILY [facility] Last Admin: 04/14/21 09:22 Dose: 40 mg Documented by: Leflunomide 20 Mg (Tablet Ptom) 0 each PO DAILY [facility] Last Admin: 04/14/21 09:24 Dose: 20 each Documented by: Potassium Chloride (Potassium Chloride 20 Meq Tab.Er) 20 meq PO BID [facility] Last Admin: 04/14/21 20:30 Dose: 20 meq Documented by: Prednisone (Prednisone 1 Mg Tab) 1 mg PO WITHBREAKFAST@0800 [facility] Last Admin: 04/14/21 09:22 Dose: 1 mg Documented by: Senna (Sennosides 8.6 Mg Tab) 8.6 mg PO DAILY PRN PRN Reason: Constipation Last Admin: 04/12/21 08:07 Dose: 8.6 mg Documented by: Sodium Chloride (Sodium Chloride 0.9% 10 Ml Syringe) 10 ml FLUSH ASDIRECTED PRN PRN Reason: Keep Vein Open Last Admin: 04/08/21 18:50 Dose: 10 ml Documented by: Discontinued Medications Apixaban (Apixaban 5 Mg Tab) 5 mg PO BID [facility] Last Admin: 04/10/21 10:21 Dose: 5 mg Documented by: Azithromycin (Azithromycin 250 Mg Tab) 500 mg PO DAILY [facility] Last Admin: 04/11/21 08:09 Dose: 500 mg Documented by: Calcium Carbonate/Glycine (Calcium Carbonate 500 Mg Tab.Chew) 500 mg PO Q8H PRN PRN Reason: Indigestion Last Admin: 04/09/21 13:01 Dose: 500 mg Documented by: Carvedilol (Carvedilol 12.5 Mg Tab) 25 mg PO BID [facility] Last Admin: 04/10/21 10:30 Dose: Not Given Documented by: Cefdinir (Cefdinir 300 Mg Cap) 300 mg PO DAILY [facility] Last Admin: 04/11/21 08:08 Dose: 300 mg Documented by: Ezetimibe (Ezetimibe 10 Mg Tab) 10 mg PO BEDTIME [facility] Last Admin: 04/09/21 20:13 Dose: 10 mg Documented by: Furosemide (Furosemide 40 Mg/4 Ml Vial) 40 mg IVPUSH DAILY [facility] Last Admin: 04/09/21 09:45 Dose: 40 mg Documented by: Furosemide (Furosemide 40 Mg/4 Ml Vial) 40 mg IVPUSH 1600 [facility] Last Admin: 04/09/21 16:29 Dose: 40 mg Documented by: Furosemide (Furosemide 20 Mg/2 Ml Vial) 20 mg IVPUSH 1600 [facility] Furosemide (Furosemide 20 Mg/2 Ml Vial) 20 mg IVPUSH TID [facility] Last Admin: 04/12/21 15:55 Dose: 20 mg Documented by: Furosemide (Furosemide 40 Mg/4 Ml Vial) 40 mg IVPUSH NOW ONE Stop: 04/12/21 10:12 Last Admin: 04/12/21 10:22 Dose: 40 mg Documented by: Furosemide (Furosemide 40 Mg/4 Ml Vial) Confirm Administered Dose 40 mg .ROUTE .STK-MED ONE Stop: 04/12/21 15:50 Last Admin: 04/12/21 16:36 Dose: Not Given Documented by: Furosemide (Furosemide 20 Mg/2 Ml Vial) Confirm Administered Dose 20 mg .ROUTE .STK-MED ONE Stop: 04/12/21 15:56 Last Admin: 04/12/21 16:35 Dose: 20 mg Documented by: Sodium Chloride (Normal Saline) 500 mls @ 125 mls/hr IV .BOLUS ONE Stop: 04/09/21 22:23 Last Admin: 04/09/21 18:46 Dose: 125 mls/hr Documented by: Albumin Human 12.5 gm/ Premix 50 mls @ 50 mls/hr IV Q1H [facility] Last Admin: 04/09/21 19:07 Dose: Not Given Documented by: Albumin Human 12.5 gm/ Premix 50 mls @ 50 mls/hr IV ONETIME ONE Stop: 04/09/21 19:35 Last Admin: 04/09/21 18:46 Dose: 50 mls/hr Documented by: Lactated Ringer's (Ringers, Lactated) 500 mls @ 250 mls/hr IV ONETIME ONE Stop: 04/10/21 00:29 Last Admin: 04/10/21 01:12 Dose: 250 mls/hr Documented by: Albumin Human 12.5 gm/ Premix 50 mls @ 50 mls/hr IV ONETIME ONE Stop: 04/10/21 08:14 Last Admin: 04/10/21 07:30 Dose: 50 mls/hr Documented by: Sodium Chloride (Normal Saline) 1,000 mls @ 125 mls/hr IV ASDIRECTED CJ Stop: 04/10/21 11:46 Sodium Chloride (Normal Saline) 500 mls @ 125 mls/hr IV ASDIRECTED CJ Stop: 04/10/21 12:21 Last Admin: 04/10/21 08:29 Dose: 125 mls/hr Documented by: Albumin Human 12.5 gm/ Premix 50 mls @ 50 mls/hr IV Q1H [facility]J Last Admin: 04/10/21 16:58 Dose: Not Given Documented by: Furosemide 100 mg/ Sodium (Chloride) 100 mls @ 5 mls/hr IV TITRATE CJ; Pr otocol Last Admin: 04/11/21 07:04 Dose: 5 mg/hr, 5 mls/hr Documented by: Albumin Human 12.5 gm/ Premix 50 mls @ 50 mls/hr IV ONETIME ONE Stop: 04/10/21 13:03 Last Admin: 04/10/21 12:21 Dose: 50 mls/hr Documented by: Lorazepam (Lorazepam 0.5 Mg Tab) 0.25 mg PO Q12H PRN PRN Reason: Anxiety Methylprednisolone Sodium Succinate (Methylprednisolone Sodium Succinate 40 Mg/1 Ml Sdv) 40 mg IVPUSH Q8H [facility] Last Admin: 04/10/21 12:16 Dose: 40 mg Documented by: Miscellaneous Information (Remove Nitroglycerin Patch) 1 ea TRDERM ONETIME ONE Stop: 04/12/21 23:01 Last Admin: 04/12/21 22:46 Dose: Not Given Documented by: Morphine Sulfate (Morphine 2 Mg/Ml Syringe) 2 mg IVPUSH ONETIME ONE Stop: 04/08/21 19:29 Last Admin: 04/08/21 19:46 Dose: 2 mg Documented by: Morphine Sulfate (Morphine 2 Mg/Ml Syringe) 2 mg IVPUSH ONETIME ONE Stop: 04/08/21 20:38 Last Admin: 04/08/21 20:47 Dose: 2 mg Documented by: Morphine Sulfate (Morphine 2 Mg/Ml Syringe) 2 mg IVPUSH ONETIME ONE Stop: 04/09/21 00:18 Last Admin: 04/09/21 00:22 Dose: 2 mg Documented by: Morphine Sulfate (Morphine 2 Mg/Ml Syringe) 2 mg IVPUSH Q1H PRN PRN Reason: Chest Pain Last Admin: 04/09/21 13:01 Dose: 2 mg Documented by: Morphine Sulfate (Morphine 2 Mg/Ml Syringe) Confirm Administered Dose 2 mg . ROUTE .STK-MED ONE Stop: 04/09/21 05:01 Last Admin: 04/09/21 05:15 Dose: Not Given Documented by: Nitroglycerin (Nitroglycerin 0.1 Mg/Hr Transdermal Patch) 0.1 mg TRDERM ONETIME ONE Stop: 04/12/21 10:12 Last Admin: 04/12/21 10:23 Dose: 0.1 mg Documented by: Leflunomide 20 Mg (Tablet) 0 each PO DAILY [facility] Last Admin: 04/10/21 11:12 Dose: Not Given Documented by: Potassium Chloride (Potassium Chloride 10 Meq Tab.Er) 10 meq PO DAILY [facility] Pravastatin Sodium (Pravastatin 20 Mg Tab) 40 mg PO BEDTIME [facility] Last Admin: 04/09/21 20:13 Dose: 40 mg Documented by: Prednisone (Prednisone 1 Mg Tab) 1 mg PO DAILY [facility] Last Admin: 04/10/21 10:22 Dose: 1 mg Documented by: - Patient Data Lab Results Last 24 hrs: Laboratory Results - last 24 hr 04/14/21 04/14/21 04/14/21 Range/Units 06:13 11:04 16:16 POC Glucose 119 H 205 H 187 H (70-99) mg/dL 04/14/21 Range/Units 20:11 POC Glucose 257 H (70-99) mg/dL Result Diagrams: 04/13/21 06:27 04/13/21 06:27 Sepsis Event Note - Focused Exam Vital Signs: Vital Signs Temp Pulse Resp BP Pulse Ox 04/14/21 20:06 97.9 F 82 18 161/67 H 99 - My Orders Last 24 Hours: My Active Orders 04/14/21 22:54 Renew/Continue Urinary Catheter [OM.PC] Routine - Plan Plan:: Case discussed in full. Agree with evaluation, assessment and plan.
[2021-04-14] MEDS: Melatonin 3 MG Tab PO SCH (20:30)
[2021-04-14] MEDS: Morphine 2 MG/ML SYRINGE IVPUSH PRN (21:32)
[2021-04-15] MEDS: Furosemide 40 MG/4 ML VIAL IVPUSH SCH (05:16)
[2021-04-15] MEDS: Insulin Lispro 100 UNIT/ML 10 ML Vial SUBCUT SCH ×2 (07:35→11:56)
[2021-04-15] MEDS: Docusate Sodium 100 MG Cap PO PRN (07:59)
[2021-04-15] MEDS: Hydroxychloroquine 200 MG Tab PO SCH (07:59)
[2021-04-15] MEDS: Pantoprazole 40 MG Tab.CR PO SCH (08:03)
[2021-04-15] MEDS: Diltiazem 180 MG Cap.CD PO SCH (08:04)
[2021-04-15] MEDS: Potassium Chloride 20 MEQ Tab.ER PO SCH (08:04)
[2021-04-15] MEDS: predniSONE 1 MG Tab PO SCH (08:04)
[2021-04-15] MEDS: Magnesium Oxide 400 MG Tab PO SCH (08:04)
[2021-04-15] MEDS: Insulin Glarg,Human.Rec.Analog 100 Unit/ML SUBCUT SCH (08:05)
[2021-04-15] MEDS: LORazepam 2 MG/ML SDV IVPUSH PRN ×2 (08:07→11:19)
[2021-04-15] MEDS: Digoxin 125 MCG Tab PO SCH (08:12)
[2021-04-15] MEDS: Leflunomide 20 MG Tablet **PTOM PO SCH (08:13)
[2021-04-15 10:24] VITALS: BP 143/80; PULSE 101
[2021-04-15] MEDS: Morphine 2 MG/ML SYRINGE IVPUSH PRN (11:19)
--- NOTE | 2021-04-15 11:35 | PCM.DCSUM1 ---
<Domenic Barrett - Last Filed: 04/15/21 12:02> Discharge Summary - Hospital Course HPI Initial Comments: 80-year-old female with multiple medical problems including atrial fibrillation, heart failure, VT/NSTEMI, pulmonary hypertension, peripheral vascular disease, aortic stenosis, cor pulmonale, LEILANI, rheumatoid arthritis, insulin-dependent diabetes presenting for evaluation of chest pain and sob. The patient endorses pleuritic intermittent chest pain and SOB. She endorses orthopnea and increased lower extremity edema. She is chronically anticoagulated with eliquis. She denies fever and has minimal cough. In the ED initial troponin was WNL. CXR with concerns for possible early chf vs possible infiltrate. She states her chest pain improved with morphine. On chronic oxygen at home 2-6 liters baseline. Her chest pain is midsternal; sometimes pleuritic and has improved this morning. Past Medical History HEENT History: Reports: Allergic Rhinitis, Cataract, Impaired Vision Cardiovascular History: Reports: Afib, Arrhythmia, Heart Failure, Heart Murmur, High Cholesterol, Hypertension, Pulmonary Hypertension, PVD Other Cardiovascular History: aortic stenosis, CHF, cor pulmonae, aortic stenosis Respiratory History: Reports: Pneumonia, Recurrent, Sleep Apnea Other Respiratory History: pulmonary HTN, respiratory failure, hypoxemia, chronic o2 use at 2L per nasal canula during day, 6 L at night Gastrointestinal History: Reports: Chronic Constipation, Diverticulosis, Gastritis, GERD, Hemorrhoids, PUD Other Gastrointestinal History: Stomach ulcer, transaminitis, hemorrhagic gastritis, blocked bile duct Genitourinary History: Reports: Acute Renal Failure, Urinary Incontinence Other Genitourinary History: acute renal failure [facility] History: Reports: Musculoskeletal History: Reports: RA, Other (See Below) Other Musculoskeletal History: knee pain Neurological History: Reports: None Psychiatric History: Reports: Anxiety, Depression Endocrine/Metabolic History: Reports: Diabetes, Type II, Obesity/BMI 30+ Hematologic History: Reports: Anemia Other Hematologic History: takes iron Immunologic History: Reports: None Oncologic (Cancer) History: Reports: None Dermatologic History: Reports: Cellulitis Other Dermatologic History: diabetic ulceration to left great toe - Infectious Disease History Infectious Disease History: Reports: Chicken Pox, Measles, Mumps, Rubella - Past Surgical History HEENT Surgical History: Reports: Cataract Surgery GI Surgical History: Reports: Appendectomy, Cholecystectomy, Colonoscopy, EGD, ERCP Female Surgical History: Reports: Breast Biopsy Musculoskeletal Surgical History: Reports: Amputation, Carpal Tunnel, Knee Replacement Other Musculoskeletal Surgeries/Procedures:: Bilateral TKR, left great toe and 3rd toe amputation Oncologic Surgical History: Reports: Biopsy of Breast Social & Family History - Family History Family Medical History: No Pertinent Family History - Tobacco Use Tobacco Use Status *Q: Never Tobacco User Second Hand Smoke Exposure: Yes Diagnosis: Stroke: No - Discharge Data Discharge Date: 04/15/21 (Admit date: 04/08/2021) Discharge Disposition: DC/Tfer to Hospice - Home 50 Condition: Stable - Referral to Home Health Primary Care Physician: Abraham Ramirez MD - Discharge Diagnosis/Problem(s) (1) History of non-ST elevation myocardial infarction (NSTEMI) SNOMED Code(s): 469301127 ICD Code: I25.2 - OLD MYOCARDIAL INFARCTION Status: Chronic Priority: Low (2) CAD (coronary artery disease) SNOMED Code(s): 18632962 ICD Code: I25.10 - ATHSCL HEART DISEASE OF [place] CORONARY ARTERY W/O ANG PCTRS Status: Chronic Priority: Medium Qualifiers: Coronary Disease-Associated Artery/Lesion type: unspecified vessel or lesion type [place] vs. transplanted heart: [place] heart Associated angina: unspecified whether angina present Qualified Code(s): I25.10 - Atherosclerotic heart disease of [place] coronary artery without angina pectoris (3) Pulmonary hypertension SNOMED Code(s): 44770891 ICD Code: I27.20 - PULMONARY HYPERTENSION, UNSPECIFIED Status: Chronic Priority: Low (4) PVD (peripheral vascular disease) SNOMED Code(s): 424708902 ICD Code: I73.9 - PERIPHERAL VASCULAR DISEASE, UNSPECIFIED Status: Chronic Priority: Low (5) NUPUR (acute kidney injury) SNOMED Code(s): 96919166, 31470125 ICD Code: N17.9 - ACUTE KIDNEY FAILURE, UNSPECIFIED Status: Acute Priority: High (6) Chronic hypoxemic respiratory failure SNOMED Code(s): 601680113 ICD Code: J96.11 - CHRONIC RESPIRATORY FAILURE WITH HYPOXIA Status: Chronic Priority: Medium (7) Need for comfort care SNOMED Code(s): 447145513, 970584355 ICD Code: [id number] - Status: Acute Priority: High (8) Chronic atrial fibrillation SNOMED Code(s): 889917960 ICD Code: I48.20 - CHRONIC ATRIAL FIBRILLATION, UNSPECIFIED Status: Chronic Priority: Medium (9) Congestive heart failure SNOMED Code(s): 12737765 ICD Code: I50.9 - HEART FAILURE, UNSPECIFIED Status: Chronic Priority: Medium Qualifiers: Heart failure type: diastolic Heart failure chronicity: acute on chronic Qualified Code(s): I50.33 - Acute on chronic diastolic (congestive) heart failure (10) Anemia SNOMED Code(s): 010342657 ICD Code: D64.9 - ANEMIA, UNSPECIFIED Status: Chronic Priority: Medium Qualifiers: Anemia type: due to chronic kidney disease Chronic kidney disease stage: stage 3 (moderate) Chronic kidney disease stage 3 subtype: stage 3b (GFR 30- 44) Qualified Code(s): N18.32 - Chronic kidney disease, stage 3b; D63.1 - Anemia in chronic kidney disease (11) Atrial fibrillation SNOMED Code(s): 32805165 ICD Code: I48.91 - UNSPECIFIED ATRIAL FIBRILLATION Status: Chronic Priority: Medium Qualifiers: Atrial fibrillation type: unspecified Qualified Code(s): I48.91 - Unspecified atrial fibrillation (12) Chronic renal insufficiency, stage III (moderate) SNOMED Code(s): 211919863 ICD Code: N18.30 - CHRONIC KIDNEY DISEASE, STAGE 3 UNSPECIFIED Status: Chronic Priority: Medium (13) Cor pulmonale, chronic SNOMED Code(s): 41555351 ICD Code: I27.81 - COR PULMONALE (CHRONIC) Status: Chronic Priority: Medium (14) Diabetes mellitus type 2 in obese SNOMED Code(s): 97239663 ICD Code: E11.69 - TYPE 2 DIABETES MELLITUS WITH OTHER SPECIFIED COMPLICATION; E66.9 - OBESITY, UNSPECIFIED Status: Chronic Priority: Medium (15) Diabetic nephropathy Status: Chronic Priority: Medium Qualifiers: Diabetes mellitus type: type 2 Qualified Code(s): E11.21 - Type 2 diabetes mellitus with diabetic nephropathy (16) LEILANI on CPAP SNOMED Code(s): 20628758 ICD Code: G47.33 - OBSTRUCTIVE SLEEP APNEA (ADULT) (PEDIATRIC); Z99.89 - DEPENDENCE ON OTHER ENABLING MACHINES AND DEVICES Status: Chronic Priority: Medium Problem Details: compliant with cpap (17) Rheumatoid arthritis SNOMED Code(s): 78999402 ICD Code: M06.9 - RHEUMATOID ARTHRITIS, UNSPECIFIED Status: Chronic Priority: Medium Qualifiers: Rheumatoid arthritis location: multiple sites (18) Supplemental oxygen dependent SNOMED Code(s): 426131997596 ICD Code: Z99.81 - DEPENDENCE ON SUPPLEMENTAL OXYGEN Status: Chronic Priority: Medium (19) Constipation SNOMED Code(s): 81610799 ICD Code: K59.00 - CONSTIPATION, UNSPECIFIED Status: Acute Priority: High Qualifiers: Constipation type: unspecified constipation type Qualified Code(s): K59.00 - Constipation, unspecified - Patient Summary/Data Consults: Consultations 04/12/21 08:00 Consult to Hospice [CONS] Routine 04/12/21 10:05 Consult to Case Management/[employer] [CONS] Routine Labs Pending at D/C: None Recommended Follow-up Testing/Procedures: Follow-up as needed for comfort care/hospice. Hospital Course: This is a 80-year-old female who presents to ED on 04/08/2021 with chest pain. She was given morphine and was noted to be hypertensive. Chest x-ray showed increased density within left lung base and findings suspicious for early CHF. Echocardiogram was obtained on 04/09/2021 and interpreted as: 1 study was performed with the patient in atrial fibrillation/flutter. 2. Left ventricular internal cavity size is normal. 3. Global and mildly to moderately decreased left ventricular systolic function. 4. Left ventricular ejection fraction, by visual estimation, is 40 to 45%. 5. Mild septal left ventricular hypertrophy. 6. Right ventricular size is normal. 7. Low normal right ventricular systolic function. 8. Moderately dilated left atrium. 9. The aortic valve is not well visualized. 10. There is moderate aortic valve sclerosis without stenosis. 11. Mild mitral valve regurgitation. 12. The tricuspid valve is not well visualized. 13. Mild tricuspid valve regurgitation. 14. Inferior vena cava is abnormal. 15. Inferior vena cava is dilated with respiratory size variation less than 50% consistent with elevated right atrial pressure. 16. The right ventricular systolic pressure is mild to moderately elevated at 42 mmHg. 17. Large left pleural effusion. Retroperitoneal ultrasound was obtained with cysts suggested within the kidneys. No hydronephrosis is seen. Probable medical renal disease as noted above. Mixed cystic and solid abnormality within the pelvis measuring up to 9.9 cm is also noted which may represent uterine fibroid although bladder is not well seen but cannot exclude mass. Consider pelvic ultrasound. Venous ultrasound was obtained and was negative for any DVT. Chest CT scan was obtained showing bilateral pleural effusions worse on the left side and probable atelectasis adjacent to the pleural effusions, worse on the left side. Heart is noted to be enlarged and there is probable cirrhosis within the liver, along with several small calcified gallstones with an incompletely visualized gallbladder. Other nonacute findings are noted. After discussion with attending hospitalist at the time patient decided that she wanted to be placed on comfort care and hospice consulted. She wishes to remain on her diabetic medications, diuretics, and potassium and magnesium supplementations. She wished for all other medications to be stopped. She did not want lab draws however she did allow us to check basic labs one time as we are adjusting Lasix. She has been using 3 L of oxygen at all times and 6 L bled into her BiPAP when napping/resting. She has been utilizing BiPAP as needed for shortness of breath. She was having difficulty with constipation and was placed on several laxatives and stool softeners. She ultimately had 2 enemas performed. Hospice was consulted and they are able to accept the patient for admission today. Report was given to the patient's primary care provider. She will be discharged on 100 mg p.o. twice daily scheduled Colace and 10 mg rectal Dulcolax suppositories as needed. Her potassium supplement was increased to 20 mill equivalents p.o. twice daily. She is receiving 60 mg p.o. twice daily Lasix. Should prescribe 8.6 mg p.o. daily as needed senna tablets for constipation. She will receive a as needed dosing for 5 mg p.o. oral morphine as needed for pain. She will be discharged on medium dose sliding scale insulin. Many of the patient's home medications were stopped as noted. Patient will be transferred home via ambulance today for hospice care, with hospice admission occurring this afternoon. She was instructed to follow-up with hospice as needed. - Patient Instructions Diet: Usual Diet as Tolerated Activity: As Tolerated Driving: Do Not Drive Notify Provider of: Fever, Increased Pain, Nausea and/or Vomiting Other/Special Instructions: Follow-up with primary care provider as needed for comfort care/hospice. You were sent prescription for sliding scale short acting insulin. Utilize the following guidelines: Blood glucose <150 no insulin; blood glucose 152-199 - 2 units subcutaneous; blood glucose 200-249 - 4 units subcutaneous; blood glucose 250-299 - 6 units subcutaneous; blood glucose 300- 349 - 8 units subcutaneous; blood glucose 350-400 - 10 units subcutaneous; blood glucose greater than 400 notify provider. Home medications were continued based on your discussions with prior provider. Continue to wear your oxygen. Utilize 3 L at all times and 6 L bleed in with BiPAP. Continue to wear your BiPAP when sleeping, napping, or as needed for respiratory distress. Follow-up with hospice as needed for worsening symptoms. - Discharge Plan *PRESCRIPTION DRUG MONITORING PROGRAM REVIEWED*: No *COPY OF PRESCRIPTION DRUG MONITORING REPORT IN PATIENT MARY ALICE: No Prescriptions/Med Rec: Docusate Sodium [Colace] 100 mg PO BID #40 cap bisacodyL [Dulcolax] 10 mg RECTAL Q12H PRN #6 supp PRN Reason: Constipation Insulin Lispro [Humalog Kwikpen U-100] See Protocol SQ QIDACANDBED #5 insuln.pen Potassium Chloride [Klor-Con M20] 20 meq PO BID #40 tab.er Furosemide [Lasix] 60 mg PO BID #60 tab Morphine [Morphine 20 MG/ML Soln] 5 mg PO Q4H PRN #30 ml PRN Reason: Pain - comfort care Sennosides [Senna] 8.6 mg PO DAILY PRN #20 tablet PRN Reason: Constipation Home Medications: Home Meds Omeprazole Magnesium [Prilosec Otc] 20 mg PO DAILY 05/09/18 [History] Pravastatin [Pravachol] 40 mg PO DAILY 05/09/18 [History] LORazepam [Ativan] 0.5 mg PO QID PRN 10/16/20 [History] Digoxin 62.5 mcg PO DAILY 12/29/20 [History] Diltiazem HCl [Diltiazem 24Hr ER] 360 mg PO DAILY 12/29/20 [History] Insulin Glargine,Hum.Rec.Anlog [Basaglar Kwikpen U-100] 23 units SUBCUT BID 12/29/20 [History] Melatonin 3 mg PO BEDTIME PRN 12/29/20 [History] Acetaminophen [Tylenol] 325 mg PO Q6HR PRN 04/09/21 [History] Hydroxychloroquine [Plaquenil] 200 mg PO DAILY 04/09/21 [History] Leflunomide [Arava] 20 mg PO DAILY 04/09/21 [History] Magnesium Oxide 400 mg PO DAILY 04/09/21 [History] predniSONE [Prednisone] 1 mg PO DAILY 04/09/21 [History] Docusate Sodium [Colace] 100 mg PO BID #40 cap 04/15/21 [Rx] Furosemide [Lasix] 60 mg PO BID #60 tab 04/15/21 [Rx] Insulin Lispro [Humalog Kwikpen U-100] See Protocol SQ QIDACANDBED #5 insuln.pen 04/15/21 [Rx] Morphine [Morphine 20 MG/ML Soln] 5 mg PO Q4H PRN #30 ml 04/15/21 [Rx] Potassium Chloride [Klor-Con M20] 20 meq PO BID #40 tab.er 04/15/21 [Rx] Sennosides [Senna] 8.6 mg PO DAILY PRN #20 tablet 04/15/21 [Rx] bisacodyL [Dulcolax] 10 mg RECTAL Q12H PRN #6 supp 04/15/21 [Rx] Oxygen Therapy Mode: Nasal Cannula Oxygen Flow Rate (L/min): 3 (6L while on BiPAP) Patient Handouts: Heart Failure, Self Care, [id number], Heart-Healthy Eating Plan, [id number], Nonspecific Chest Pain, Adult, [id number], Hospice, Living With Heart Failure - Discharge Summary/Plan Comment DC Time >30 min.: Yes (60 minutes) - General Info Date of Service: 04/15/21 Admission Dx/Problem (Free Text: Admission Diagnosis/Problem Admission Diagnosis/Problem CHF, Congestive heart failure Functional Status: Reports: Pain Controlled, Tolerating Diet, Urinating. Denies: Ambulating, New Symptoms - Review of Systems General: Reports: Weakness, Fatigue, Malaise. Denies: Fever, Chills HEENT: Reports: No Symptoms. Denies: Headaches, Sore Throat Pulmonary: Reports: Shortness of Breath, Cough, Sputum. Denies: Pleuritic Chest Pain, Wheezing Cardiovascular: Reports: Dyspnea on Exertion, Edema. Denies: Chest Pain, Palpitations Gastrointestinal: Reports: Constipation. Denies: Abdominal Pain, Diarrhea, Nausea, Vomiting Genitourinary: Reports: No Symptoms. Denies: Pain Musculoskeletal: Reports: No Symptoms Skin: Reports: No Symptoms. Denies: Cyanosis Neurological: Reports: Difficulty Walking, Weakness, Gait Disturbance. Denies: Confusion, Headache, Numbness, Syncope, Tingling Psychiatric: Reports: No Symptoms - Patient Data Vitals - Most Recent: Last Vital Signs Temp 97.5 F 04/15/21 09:56 Pulse 101 H 04/15/21 09:56 Resp 20 04/15/21 09:56 BP 143/80 H 04/15/21 09:56 Pulse Ox 100 04/15/21 09:56 Weight - Most Recent: 284 lb I&O - Last 24 hours: Intake & Output 04/14/21 04/15/21 04/15/21 22:59 06:59 14:59 Intake Total 1740 300 Output Total 1800 850 Balance -60 -550 Lab Results - Last 24 hrs: Laboratory Results - last 24 hr 04/14/21 04/14/21 04/15/21 Range/Units 16:16 20:11 05:58 POC Glucose 187 H 257 H 109 H (70-99) mg/dL Med Orders - Current: Current Medications Acetaminophen (Acetaminophen 325 Mg Tab) 650 mg PO Q4H PRN PRN Reason: Pain (Mild 1-3)/fever Bisacodyl (Bisacodyl 10 Mg Supp) 10 mg RECTAL Q12H PRN PRN Reason: Constipation Last Admin: 04/12/21 17:11 Dose: 10 mg Documented by: Digoxin (Digoxin 125 Mcg Tab) 62.5 mcg PO DAILY [facility] Last Admin: 04/15/21 08:12 Dose: 62.5 mcg Documented by: Diltiazem HCl (Diltiazem 180 Mg Cap.Cd) 360 mg PO DAILY [facility] Last Admin: 04/15/21 08:04 Dose: 360 mg Documented by: Docusate Sodium (Docusate Sodium 100 Mg Cap) 100 mg PO BID PRN PRN Reason: Constipation Last Admin: 04/15/21 07:59 Dose: 100 mg Documented by: Furosemide (Furosemide 40 Mg/4 Ml Vial) 40 mg IVPUSH BIDDIURETIC [facility] Last Admin: 04/15/21 05:16 Dose: 40 mg Documented by: Hydromorphone HCl (Hydromorphone 0.5 Mg/0.5 Ml Syringe) 0.25 mg IVPUSH Q2H PRN PRN Reason: Pain (moderate 4-6) Hydroxychloroquine Sulfate (Hydroxychloroquine 200 Mg Tab) 200 mg PO DAILY [facility] Last Admin: 04/15/21 07:59 Dose: 200 mg Documented by: Insulin Glargine (Insulin Glarg,Human.Rec.Analog 100 Unit/Ml) 23 unit SUBCUT BID [facility] Last Admin: 04/15/21 08:05 Dose: 23 units Documented by: Insulin Human Lispro (Insulin Lispro 100 Unit/Ml 10 Ml Vial) 0 unit SUBCUT QIDACANDBED [facility]; Protocol Last Admin: 04/15/21 07:35 Dose: Not Given Documented by: Lorazepam (Lorazepam 2 Mg/Ml Sdv) 0.5 mg IVPUSH Q3H PRN PRN Reason: Anxiety Last Admin: 04/15/21 11:19 Dose: 0.5 mg Documented by: Magnesium Oxide (Magnesium Oxide 400 Mg Tab) 400 mg PO DAILY [facility] Last Admin: 04/15/21 08:04 Dose: 400 mg Documented by: Melatonin (Melatonin 3 Mg Tab) 3 mg PO BEDTIME [facility] Last Admin: 04/14/21 20:30 Dose: 3 mg Documented by: Morphine Sulfate (Morphine 2 Mg/Ml Syringe) 1 mg IVPUSH Q2H PRN PRN Reason: comfort care/respiratory Last Admin: 04/14/21 21:32 Dose: 1 mg Documented by: Nitroglycerin (Nitroglycerin 0.4 Mg Tab.Sl) 0.4 mg SL Q5M PRN PRN Reason: Chest Pain Ondansetron HCl (Ondansetron 4 Mg/2 Ml Sdv) 4 mg IV Q4H PRN PRN Reason: Nausea/Vomiting Last Admin: 04/09/21 13:00 Dose: 4 mg Documented by: Pantoprazole Sodium (Pantoprazole 40 Mg Tab.Cr) 40 mg PO DAILY [facility] Last Admin: 04/15/21 08:03 Dose: 40 mg Documented by: Leflunomide 20 Mg (Tablet Ptom) 0 each PO DAILY [facility] Last Admin: 04/15/21 08:13 Dose: 20 each Documented by: Potassium Chloride (Potassium Chloride 20 Meq Tab.Er) 20 meq PO BID [facility] Last Admin: 04/15/21 08:04 Dose: 20 meq Documented by: Prednisone (Prednisone 1 Mg Tab) 1 mg PO WITHBREAKFAST@0800 [facility] Last Admin: 04/15/21 08:04 Dose: 1 mg Documented by: Senna (Sennosides 8.6 Mg Tab) 8.6 mg PO DAILY PRN PRN Reason: Constipation Last Admin: 04/12/21 08:07 Dose: 8.6 mg Documented by: Sodium Chloride (Sodium Chloride 0.9% 10 Ml Syringe) 10 ml FLUSH ASDIRECTED PRN PRN Reason: Keep Vein Open Last Admin: 04/08/21 18:50 Dose: 10 ml Documented by: Discontinued Medications Apixaban (Apixaban 5 Mg Tab) 5 mg PO BID [facility] Last Admin: 04/10/21 10:21 Dose: 5 mg Documented by: Azithromycin (Azithromycin 250 Mg Tab) 500 mg PO DAILY [facility] Last Admin: 04/11/21 08:09 Dose: 500 mg Documented by: Calcium Carbonate/Glycine (Calcium Carbonate 500 Mg Tab.Chew) 500 mg PO Q8H PRN PRN Reason: Indigestion Last Admin: 04/09/21 13:01 Dose: 500 mg Documented by: Carvedilol (Carvedilol 12.5 Mg Tab) 25 mg PO BID [facility] Last Admin: 04/10/21 10:30 Dose: Not Given Documented by: Cefdinir (Cefdinir 300 Mg Cap) 300 mg PO DAILY [facility] Last Admin: 04/11/21 08:08 Dose: 300 mg Documented by: Ezetimibe (Ezetimibe 10 Mg Tab) 10 mg PO BEDTIME [facility] Last Admin: 04/09/21 20:13 Dose: 10 mg Documented by: Furosemide (Furosemide 40 Mg/4 Ml Vial) 40 mg IVPUSH DAILY [facility] Last Admin: 04/09/21 09:45 Dose: 40 mg Documented by: Furosemide (Furosemide 40 Mg/4 Ml Vial) 40 mg IVPUSH 1600 [facility] Last Admin: 04/09/21 16:29 Dose: 40 mg Documented by: Furosemide (Furosemide 20 Mg/2 Ml Vial) 20 mg IVPUSH 1600 [facility] Furosemide (Furosemide 20 Mg/2 Ml Vial) 20 mg IVPUSH TID [facility] Last Admin: 04/12/21 15:55 Dose: 20 mg Documented by: Furosemide (Furosemide 40 Mg/4 Ml Vial) 40 mg IVPUSH NOW ONE Stop: 04/12/21 10:12 Last Admin: 04/12/21 10:22 Dose: 40 mg Documented by: Furosemide (Furosemide 40 Mg/4 Ml Vial) Confirm Administered Dose 40 mg .ROUTE .STK-MED ONE Stop: 04/12/21 15:50 Last Admin: 04/12/21 16:36 Dose: Not Given Documented by: Furosemide (Furosemide 20 Mg/2 Ml Vial) Confirm Administered Dose 20 mg .ROUTE .STK-MED ONE Stop: 04/12/21 15:56 Last Admin: 04/12/21 16:35 Dose: 20 mg Documented by: Sodium Chloride (Normal Saline) 500 mls @ 125 mls/hr IV .BOLUS ONE Stop: 04/09/21 22:23 Last Admin: 04/09/21 18:46 Dose: 125 mls/hr Documented by: Albumin Human 12.5 gm/ Premix 50 mls @ 50 mls/hr IV Q1H CJ Last Admin: 04/09/21 19:07 Dose: Not Given Documented by: Albumin Human 12.5 gm/ Premix 50 mls @ 50 mls/hr IV ONETIME ONE Stop: 04/09/21 19:35 Last Admin: 04/09/21 18:46 Dose: 50 mls/hr Documented by: Lactated Ringer's (Ringers, Lactated) 500 mls @ 250 mls/hr IV ONETIME ONE Stop: 04/10/21 00:29 Last Admin: 04/10/21 01:12 Dose: 250 mls/hr Documented by: Albumin Human 12.5 gm/ Premix 50 mls @ 50 mls/hr IV ONETIME ONE Stop: 04/10/21 08:14 Last Admin: 04/10/21 07:30 Dose: 50 mls/hr Documented by: Sodium Chloride (Normal Saline) 1,000 mls @ 125 mls/hr IV ASDIRECTED CJ Stop: 04/10/21 11:46 Sodium Chloride (Normal Saline) 500 mls @ 125 mls/hr IV ASDIRECTED CJ Stop: 04/10/21 12:21 Last Admin: 04/10/21 08:29 Dose: 125 mls/hr Documented by: Albumin Human 12.5 gm/ Premix 50 mls @ 50 mls/hr IV Q1H CJ Last Admin: 04/10/21 16:58 Dose: Not Given Documented by: Furosemide 100 mg/ Sodium (Chloride) 100 mls @ 5 mls/hr IV TITRATE CJ; Protocol Last Admin: 04/11/21 07:04 Dose: 5 mg/hr, 5 mls/hr Documented by: Albumin Human 12.5 gm/ Premix 50 mls @ 50 mls/hr IV ONETIME ONE Stop: 04/10/21 13:03 Last Admin: 04/10/21 12:21 Dose: 50 mls/hr Documented by: Lorazepam (Lorazepam 0.5 Mg Tab) 0.25 mg PO Q12H PRN PRN Reason: Anxiety Methylprednisolone Sodium Succinate (Methylprednisolone Sodium Succinate 40 Mg/1 Ml Sdv) 40 mg IVPUSH Q8H [facility] Last Admin: 04/10/21 12:16 Dose: 40 mg Documented by: Miscellaneous Information (Remove Nitroglycerin Patch) 1 ea TRDERM ONETIME ONE Stop: 04/12/21 23:01 Last Admin: 04/12/21 22:46 Dose: Not Given Documented by: Morphine Sulfate (Morphine 2 Mg/Ml Syringe) 2 mg IVPUSH ONETIME ONE Stop: 04/08/21 19:29 Last Admin: 04/08/21 19:46 Dose: 2 mg Documented by: Morphine Sulfate (Morphine 2 Mg/Ml Syringe) 2 mg IVPUSH ONETIME ONE Stop: 04/08/21 20:38 Last Admin: 04/08/21 20:47 Dose: 2 mg Documented by: Morphine Sulfate (Morphine 2 Mg/Ml Syringe) 2 mg IVPUSH ONETIME ONE Stop: 04/09/21 00:18 Last Admin: 04/09/21 00:22 Dose: 2 mg Documented by: Morphine Sulfate (Morphine 2 Mg/Ml Syringe) 2 mg IVPUSH Q1H PRN PRN Reason: Chest Pain Last Admin: 04/09/21 13:01 Dose: 2 mg Documented by: Morphine Sulfate (Morphine 2 Mg/Ml Syringe) Confirm Administered Dose 2 mg .ROUTE .STK-MED ONE Stop: 04/09/21 05:01 Last Admin: 04/09/21 05:15 Dose: Not Given Documented by: Nitroglycerin (Nitroglycerin 0.1 Mg/Hr Transdermal Patch) 0.1 mg TRDERM ONETIME ONE Stop: 04/12/21 10:12 Last Admin: 04/12/21 10:23 Dose: 0.1 mg Documented by: Leflunomide 20 Mg (Tablet) 0 each PO DAILY [facility] Last Admin: 04/10/21 11:12 Dose: Not Given Documented by: Potassium Chloride (Potassium Chloride 10 Meq Tab.Er) 10 meq PO DAILY [facility] Pravastatin Sodium (Pravastatin 20 Mg Tab) 40 mg PO BEDTIME [facility] Last Admin: 04/09/21 20:13 Dose: 40 mg Documented by: Prednisone (Prednisone 1 Mg Tab) 1 mg PO DAILY [facility] Last Admin: 04/10/21 10:22 Dose: 1 mg Documented by: - Exam Quality Assessment: Reports: Supplemental Oxygen (3L ), Urine Catheter. Denies: DVT Prophylaxis (Comfort cares) General: Reports: Alert, Oriented, Cooperative, No Acute Distress HEENT: Reports: Pupils Equal, Pupils Reactive, Mucous Membr. Moist/[place] Neck: Reports: Supple, Trachea Midline Lungs: Reports: Normal Respiratory Effort, Decreased Breath Sounds, Rhonchi (worse on left) Cardiovascular: Reports: Regular Rate, Irregular Rhythm GI/Abdominal Exam: Normal Bowel Sounds, Soft, Non-Tender, No Distention (Female) Exam: Deferred Rectal (Female) Exam: Deferred Extremities: Normal Inspection, Normal Range of Motion, Non-Tender, Normal Capil mi Refill, Pedal Edema Skin: Reports: Warm, Dry, Intact Neurological: Reports: No New Focal Deficit Psy/Mental Status: Reports: Alert <José Miguel Chopra Jr - Last Filed: 04/15/21 16:36> Discharge Summary - Referral to Home Health Primary Care Physician: Abraham Ramirez MD - Patient Summary/Data Consults: Consultations 04/12/21 08:00 Consult to Hospice [CONS] Routine 04/12/21 10:05 Consult to Case Management/[employer] [CONS] Routine - Discharge Summary/Plan Comment Discharge Summary/Plan Comment: Case discussed in full. Agree with evaluation, assessment and plan. - Patient Data Vitals - Most Recent: Last Vital Signs Temp 97.5 F 04/15/21 09:56 Pulse 101 H 04/15/21 09:56 Resp 20 04/15/21 09:56 BP 143/80 H 04/15/21 09:56 Pulse Ox 100 04/15/21 09:56 I&O - Last 24 hours: Intake & Output 04/15/21 04/15/21 04/15/21 06:59 14:59 22:59 Intake Total 300 Output Total 850 Balance -550 Lab Results - Last 24 hrs: Laboratory Results - last 24 hr 04/14/21 04/14/21 04/15/21 Range/Units 16:16 20:11 05:58 POC Glucose 187 H 257 H 109 H (70-99) mg/dL Med Orders - Current: Current Medications Discontinued Medications Acetaminophen (Acetaminophen 325 Mg Tab) 650 mg PO Q4H PRN PRN Reason: Pain (Mild 1-3)/fever Apixaban (Apixaban 5 Mg Tab) 5 mg PO BID [facility] Last Admin: 04/10/21 10:21 Dose: 5 mg Documented by: Azithromycin (Azithromycin 250 Mg Tab) 500 mg PO DAILY [facility] Last Admin: 04/11/21 08:09 Dose: 500 mg Documented by: Bisacodyl (Bisacodyl 10 Mg Supp) 10 mg RECTAL Q12H PRN PRN Reason: Constipation Last Admin: 04/12/21 17:11 Dose: 10 mg Documented by: Calcium Carbonate/Glycine (Calcium Carbonate 500 Mg Tab.Chew) 500 mg PO Q8H PRN PRN Reason: Indigestion Last Admin: 04/09/21 13:01 Dose: 500 mg Documented by: Carvedilol (Carvedilol 12.5 Mg Tab) 25 mg PO BID [facility] Last Admin: 04/10/21 10:30 Dose: Not Given Documented by: Cefdinir (Cefdinir 300 Mg Cap) 300 mg PO DAILY [facility] Last Admin: 04/11/21 08:08 Dose: 300 mg Documented by: Digoxin (Digoxin 125 Mcg Tab) 62.5 mcg PO DAILY [facility] Last Admin: 04/15/21 08:12 Dose: 62.5 mcg Documented by: Diltiazem HCl (Diltiazem 180 Mg Cap.Cd) 360 mg PO DAILY [facility] Last Admin: 04/15/21 08:04 Dose: 360 mg Documented by: Docusate Sodium (Docusate Sodium 100 Mg Cap) 100 mg PO BID PRN PRN Reason: Constipation Last Admin: 04/15/21 07:59 Dose: 100 mg Documented by: Ezetimibe (Ezetimibe 10 Mg Tab) 10 mg PO BEDTIME [facility] Last Admin: 04/09/21 20:13 Dose: 10 mg Documented by: Furosemide (Furosemide 40 Mg/4 Ml Vial) 40 mg IVPUSH DAILY [facility] Last Admin: 04/09/21 09:45 Dose: 40 mg Documented by: Furosemide (Furosemide 40 Mg/4 Ml Vial) 40 mg IVPUSH 1600 [facility] Last Admin: 04/09/21 16:29 Dose: 40 mg Documented by: Furosemide (Furosemide 20 Mg/2 Ml Vial) 20 mg IVPUSH 1600 [facility] Furosemide (Furosemide 20 Mg/2 Ml Vial) 20 mg IVPUSH TID [facility] Last Admin: 04/12/21 15:55 Dose: 20 mg Documented by: Furosemide (Furosemide 40 Mg/4 Ml Vial) 40 mg IVPUSH NOW ONE Stop: 04/12/21 10:12 Last Admin: 04/12/21 10:22 Dose: 40 mg Documented by: Furosemide (Furosemide 40 Mg/4 Ml Vial) 40 mg IVPUSH BIDDIURETIC [facility] Last Admin: 04/15/21 05:16 Dose: 40 mg Documented by: Furosemide (Furosemide 40 Mg/4 Ml Vial) Confirm Administered Dose 40 mg .ROUTE .STK-MED ONE Stop: 04/12/21 15:50 Last Admin: 04/12/21 16:36 Dose: Not Given Documented by: Furosemide (Furosemide 20 Mg/2 Ml Vial) Confirm Administered Dose 20 mg .ROUTE .STK-MED ONE Stop: 04/12/21 15:56 Last Admin: 04/12/21 16:35 Dose: 20 mg Documented by: Hydromorphone HCl (Hydromorphone 0.5 Mg/0.5 Ml Syringe) 0.25 mg IVPUSH Q2H PRN PRN Reason: Pain (moderate 4-6) Hydroxychloroquine Sulfate (Hydroxychloroquine 200 Mg Tab) 200 mg PO DAILY [facility] Last Admin: 04/15/21 07:59 Dose: 200 mg Documented by: Sodium Chloride (Normal Saline) 500 mls @ 125 mls/hr IV .BOLUS ONE Stop: 04/09/21 22:23 Last Admin: 04/09/21 18:46 Dose: 125 mls/hr Documented by: Albumin Human 12.5 gm/ Premix 50 mls @ 50 mls/hr IV Q1H [facility] Last Admin: 04/09/21 19:07 Dose: Not Given Documented by: Albumin Human 12.5 gm/ Premix 50 mls @ 50 mls/hr IV ONETIME ONE Stop: 04/09/21 19:35 Last Admin: 04/09/21 18:46 Dose: 50 mls/hr Documented by: Lactated Ringer's (Ringers, Lactated) 500 mls @ 250 mls/hr IV ONETIME ONE Stop: 04/10/21 00:29 Last Admin: 04/10/21 01:12 Dose: 250 mls/hr Documented by: Albumin Human 12.5 gm/ Premix 50 mls @ 50 mls/hr IV ONETIME ONE Stop: 04/10/21 08:14 Last Admin: 04/10/21 07:30 Dose: 50 mls/hr Documented by: Sodium Chloride (Normal Saline) 1,000 mls @ 125 mls/hr IV ASDIRECTED [facility] Stop: 04/10/21 11:46 Sodium Chloride (Normal Saline) 500 mls @ 125 mls/hr IV ASDIRECTED [facility] Stop: 04/10/21 12:21 Last Admin: 04/10/21 08:29 Dose: 125 mls/hr Documented by: Albumin Human 12.5 gm/ Premix 50 mls @ 50 mls/hr IV Q1H [facility] Last Admin: 04/10/21 16:58 Dose: Not Given Documented by: Furosemide 100 mg/ Sodium (Chloride) 100 mls @ 5 mls/hr IV TITRATE [facility]; Prot ocol Last Admin: 04/11/21 07:04 Dose: 5 mg/hr, 5 mls/hr Documented by: Albumin Human 12.5 gm/ Premix 50 mls @ 50 mls/hr IV ONETIME ONE Stop: 04/10/21 13:03 Last Admin: 04/10/21 12:21 Dose: 50 mls/hr Documented by: Insulin Glargine (Insulin Glarg,Human.Rec.Analog 100 Unit/Ml) 23 unit SUBCUT BID [facility] Last Admin: 04/15/21 08:05 Dose: 23 units Documented by: Insulin Human Lispro (Insulin Lispro 100 Unit/Ml 10 Ml Vial) 0 unit SUBCUT QIDACANDBED [facility]; Protocol Last Admin: 04/15/21 11:56 Dose: Not Given Documented by: Lorazepam (Lorazepam 0.5 Mg Tab) 0.25 mg PO Q12H PRN PRN Reason: Anxiety Lorazepam (Lorazepam 2 Mg/Ml Sdv) 0.5 mg IVPUSH Q3H PRN PRN Reason: Anxiety Last Admin: 04/15/21 11:19 Dose: 0.5 mg Documented by: Magnesium Oxide (Magnesium Oxide 400 Mg Tab) 400 mg PO DAILY [facility] Last Admin: 04/15/21 08:04 Dose: 400 mg Documented by: Melatonin (Melatonin 3 Mg Tab) 3 mg PO BEDTIME [facility] Last Admin: 04/14/21 20:30 Dose: 3 mg Documented by: Methylprednisolone Sodium Succinate (Methylprednisolone Sodium Succinate 40 Mg/1 Ml Sdv) 40 mg IVPUSH Q8H [facility] Last Admin: 04/10/21 12:16 Dose: 40 mg Documented by: Miscellaneous Information (Remove Nitroglycerin Patch) 1 ea TRDERM ONETIME ONE Stop: 04/12/21 23:01 Last Admin: 04/12/21 22:46 Dose: Not Given Documented by: Morphine Sulfate (Morphine 2 Mg/Ml Syringe) 2 mg IVPUSH ONETIME ONE Stop: 04/08/21 19:29 Last Admin: 04/08/21 19:46 Dose: 2 mg Documented by: Morphine Sulfate (Morphine 2 Mg/Ml Syringe) 2 mg IVPUSH ONETIME ONE Stop: 04/08/21 20:38 Last Admin: 04/08/21 20:47 Dose: 2 mg Documented by: Morphine Sulfate (Morphine 2 Mg/Ml Syringe) 2 mg IVPUSH ONETIME ONE Stop: 04/09/21 00:18 Last Admin: 04/09/21 00:22 Dose: 2 mg Documented by: Morphine Sulfate (Morphine 2 Mg/Ml Syringe) 2 mg IVPUSH Q1H PRN PRN Reason: Chest Pain Last Admin: 04/09/21 13:01 Dose: 2 mg Documented by: Morphine Sulfate (Morphine 2 Mg/Ml Syringe) Confirm Administered Dose 2 mg .ROUTE .STK-MED ONE Stop: 04/09/21 05:01 Last Admin: 04/09/21 05:15 Dose: Not Given Documented by: Morphine Sulfate (Morphine 2 Mg/Ml Syringe) 1 mg IVPUSH Q2H PRN PRN Reason: comfort care/respiratory Last Admin: 04/14/21 21:32 Dose: 1 mg Documented by: Morphine Sulfate (Morphine 15 Mg Tab.Er) 15 mg PO ONETIME ONE Stop: 04/15/21 11:37 Last Admin: 04/15/21 12:08 Dose: 15 mg Documented by: Nitroglycerin (Nitroglycerin 0.4 Mg Tab.Sl) 0.4 mg SL Q5M PRN PRN Reason: Chest Pain Nitroglycerin (Nitroglycerin 0.1 Mg/Hr Transdermal Patch) 0.1 mg TRDERM ONETIME ONE Stop: 04/12/21 10:12 Last Admin: 04/12/21 10:23 Dose: 0.1 mg Documented by: Ondansetron HCl (Ondansetron 4 Mg/2 Ml Sdv) 4 mg IV Q4H PRN PRN Reason: Nausea/Vomiting Last Admin: 04/09/21 13:00 Dose: 4 mg Documented by: Pantoprazole Sodium (Pantoprazole 40 Mg Tab.Cr) 40 mg PO DAILY [facility] Last Admin: 04/15/21 08:03 Dose: 40 mg Documented by: Leflunomide 20 Mg (Tablet) 0 each PO DAILY [facility] Last Admin: 04/10/21 11:12 Dose: Not Given Documented by: Leflunomide 20 Mg (Tablet Ptom) 0 each PO DAILY [facility] Last Admin: 04/15/21 08:13 Dose: 20 each Documented by: Potassium Chloride (Potassium Chloride 10 Meq Tab.Er) 10 meq PO DAILY [facility] Potassium Chloride (Potassium Chloride 20 Meq Tab.Er) 20 meq PO BID [facility] Last Admin: 04/15/21 08:04 Dose: 20 meq Documented by: Pravastatin Sodium (Pravastatin 20 Mg Tab) 40 mg PO BEDTIME [facility] Last Admin: 04/09/21 20:13 Dose: 40 mg Documented by: Prednisone (Prednisone 1 Mg Tab) 1 mg PO DAILY [facility] Last Admin: 04/10/21 10:22 Dose: 1 mg Documented by: Prednisone (Prednisone 1 Mg Tab) 1 mg PO WITHBREAKFAST@0800 [facility] Last Admin: 04/15/21 08:04 Dose: 1 mg Documented by: Senna (Sennosides 8.6 Mg Tab) 8.6 mg PO DAILY PRN PRN Reason: Constipation Last Admin: 04/12/21 08:07 Dose: 8.6 mg Documented by: Sodium Chloride (Sodium Chloride 0.9% 10 Ml Syringe) 10 ml FLUSH ASDIRECTED PRN PRN Reason: Keep Vein Open Last Admin: 04/08/21 18:50 Dose: 10 ml Documented by:
[2021-04-15] MEDS ORDERED: Morphine 15 MG Tab.ER PO ONE (11:36)
== END 2021-04-15 12:34 | disposition hospice, home (50) | DRG 291 ==
LOC: JD.ED 18:42 → JD.MS 23:08 → OBSVTOIN 04-09 08:21 → JD.MS 04-15 10:47
PROVIDERS: ADMIT Hospitalist; ATTEND Hospitalist
DX: I13.0 Hypertensive heart and chronic kidney disease with heart failure and stage 1 through stage 4 chronic kidney disease, or unspecified chronic kidney disease (principal); I50.33 Acute on chronic diastolic (congestive) heart failure; N17.9 Acute kidney failure, unspecified; N18.30 Chronic kidney disease, stage 3 unspecified; I50.9 Heart failure, unspecified; J96.11 Chronic respiratory failure with hypoxia; I48.20 Chronic atrial fibrillation, unspecified; I48.92 Unspecified atrial flutter; Z68.42 Body mass index [BMI] 45.0-49.9, adult; Z66 Do not resuscitate; I25.10 Atherosclerotic heart disease of native coronary artery without angina pectoris; Z51.5 Encounter for palliative care; Z20.822 Contact with and (suspected) exposure to COVID-19; N18.32 Chronic kidney disease, stage 3b; D63.1 Anemia in chronic kidney disease; I73.9 Peripheral vascular disease, unspecified; I27.81 Cor pulmonale (chronic); E11.22 Type 2 diabetes mellitus with diabetic chronic kidney disease; E11.21 Type 2 diabetes mellitus with diabetic nephropathy; G47.33 Obstructive sleep apnea (adult) (pediatric); M06.9 Rheumatoid arthritis, unspecified; I08.1 Rheumatic disorders of both mitral and tricuspid valves; I70.0 Atherosclerosis of aorta; H54.7 Unspecified visual loss; E78.00 Pure hypercholesterolemia, unspecified; K59.09 Other constipation; K21.9 Gastro-esophageal reflux disease without esophagitis; I27.20 Pulmonary hypertension, unspecified; K57.90 Diverticulosis of intestine, part unspecified, without perforation or abscess without bleeding; E11.51 Type 2 diabetes mellitus with diabetic peripheral angiopathy without gangrene; E66.9 Obesity, unspecified; E11.621 Type 2 diabetes mellitus with foot ulcer; L97.529 Non-pressure chronic ulcer of other part of left foot with unspecified severity; Z96.653 Presence of artificial knee joint, bilateral; F41.9 Anxiety disorder, unspecified; F32.9 Major depressive disorder, single episode, unspecified; J30.9 Allergic rhinitis, unspecified; E61.1 Iron deficiency; I16.0 Hypertensive urgency; R07.89 Other chest pain; J44.9 Chronic obstructive pulmonary disease, unspecified; N28.1 Cyst of kidney, acquired; K74.60 Unspecified cirrhosis of liver; K80.80 Other cholelithiasis without obstruction; I25.2 Old myocardial infarction; Z99.81 Dependence on supplemental oxygen; Z87.01 Personal history of pneumonia (recurrent); Z90.49 Acquired absence of other specified parts of digestive tract; Z98.49 Cataract extraction status, unspecified eye; Z88.5 Allergy status to narcotic agent; Z88.8 Allergy status to other drugs, medicaments and biological substances; Z79.4 Long term (current) use of insulin; Z79.52 Long term (current) use of systemic steroids; Z79.899 Other long term (current) drug therapy; Z79.01 Long term (current) use of anticoagulants
CPT/HCPCS: 36415 ×2; 51702; 71045; 80048; 80053; 81001; 82553; 82947 ×2; 83605; 83690; 83880; 84145; 84484 ×3; 85007; 85025; 85027; 85610; 87086; 93005 ×2; 93306; 96374; 96376 ×2; 99285; J2270 ×4; U0002; 36410; 51798; 71250; 71250-26; 76770; 76770-26; 83735; 93970; 93970-26; 94760; 94761; 94762; 99100; A9270-GY; G0378; J1815-GY; J1940; J2060; J2405; J2920; J7030; J7120; J7512; P9047